=== PATIENT | male | born 1965 | race Caucasian/White ===

== ENCOUNTER → 2019-05-09 09:59 | Outpatient (BNVA) | payer MEDICARE, SELFPAY | PROVIDERS: Family Provider Family Medicine; PCP Internal Medicine Cardiovascular Disease; Visit Provider Anesthesiology | DX: M54.5 Low back pain (principal); M79.651 Pain in right thigh; M79.652 Pain in left thigh; M25.512 Pain in left shoulder; M25.571 Pain in right ankle and joints of right foot; F17.210 Nicotine dependence, cigarettes, uncomplicated; Z79.891 Long term (current) use of opiate analgesic; Z71.6 Tobacco abuse counseling | CPT/HCPCS: 99214 ==

== ENCOUNTER → 2019-08-15 09:37 | Outpatient (BNVA) | payer MEDICARE, SELFPAY | PROVIDERS: Family Provider Family Medicine; PCP Internal Medicine Cardiovascular Disease; Visit Provider Anesthesiology | DX: M54.9 Dorsalgia, unspecified (principal); F17.210 Nicotine dependence, cigarettes, uncomplicated; Z79.891 Long term (current) use of opiate analgesic | CPT/HCPCS: 99213; 99214 ==

== ENCOUNTER → 2019-10-17 08:53 | Outpatient (BNVA) | payer MEDICARE, SELFPAY | PROVIDERS: Family Provider Family Medicine; PCP Internal Medicine Cardiovascular Disease; Visit Provider Anesthesiology | DX: M54.41 Lumbago with sciatica, right side (principal); M54.9 Dorsalgia, unspecified; F17.210 Nicotine dependence, cigarettes, uncomplicated; Z79.891 Long term (current) use of opiate analgesic | CPT/HCPCS: 99213; 99214 ==

== ENCOUNTER → 2019-12-15 08:41 | Outpatient (BNVA) | payer MEDICARE, SELFPAY | PROVIDERS: Family Provider Family Medicine; PCP Internal Medicine Cardiovascular Disease; Visit Provider Anesthesiology | DX: M54.41 Lumbago with sciatica, right side (principal); M54.9 Dorsalgia, unspecified; F17.210 Nicotine dependence, cigarettes, uncomplicated; Z79.891 Long term (current) use of opiate analgesic | CPT/HCPCS: 99213; 99214 ==

== ENCOUNTER → 2020-02-02 09:06 | Outpatient (BNVA) | payer MEDICARE, SELFPAY | PROVIDERS: Family Provider Family Medicine; PCP Internal Medicine Cardiovascular Disease; Visit Provider Anesthesiology | DX: M54.41 Lumbago with sciatica, right side (principal); M54.9 Dorsalgia, unspecified; F17.210 Nicotine dependence, cigarettes, uncomplicated; Z79.891 Long term (current) use of opiate analgesic | CPT/HCPCS: 99213; 99214 ==

== ENCOUNTER → 2020-04-09 09:21 | Outpatient (BNVA) | payer MEDICARE, SELFPAY | PROVIDERS: Family Provider Family Medicine; PCP Internal Medicine Cardiovascular Disease; Visit Provider Anesthesiology | DX: G89.29 Other chronic pain (principal); M54.41 Lumbago with sciatica, right side; M54.9 Dorsalgia, unspecified; M79.604 Pain in right leg; F17.210 Nicotine dependence, cigarettes, uncomplicated; Z79.891 Long term (current) use of opiate analgesic | CPT/HCPCS: 99214 ==

== ENCOUNTER → 2020-06-13 09:01 | Outpatient (BNVA) | payer MEDICARE, SELFPAY | PROVIDERS: Family Provider Family Medicine; PCP Family Medicine; Visit Provider Anesthesiology | DX: G89.29 Other chronic pain (principal); M54.9 Dorsalgia, unspecified; M54.41 Lumbago with sciatica, right side; F17.210 Nicotine dependence, cigarettes, uncomplicated; Z79.891 Long term (current) use of opiate analgesic | CPT/HCPCS: 99213 ==

== ENCOUNTER → 2020-08-13 08:44 | Outpatient (BNVA) | payer MEDICARE, SELFPAY | PROVIDERS: Family Provider Family Medicine; PCP Family Medicine; Visit Provider Anesthesiology | DX: G89.29 Other chronic pain (principal); M54.41 Lumbago with sciatica, right side; M54.9 Dorsalgia, unspecified; F17.210 Nicotine dependence, cigarettes, uncomplicated; Z79.891 Long term (current) use of opiate analgesic | CPT/HCPCS: 99213 ==

== ENCOUNTER → 2020-10-09 09:36 | Outpatient (BNVA) | payer MEDICARE, SELFPAY | PROVIDERS: Family Provider Family Medicine; PCP Family Medicine; Visit Provider Anesthesiology | DX: G89.29 Other chronic pain (principal); M54.41 Lumbago with sciatica, right side; F17.210 Nicotine dependence, cigarettes, uncomplicated; Z79.891 Long term (current) use of opiate analgesic | CPT/HCPCS: 99213 ==

== ENCOUNTER → 2020-12-06 09:02 | Outpatient (BNVA) | payer MEDICARE, SELFPAY | PROVIDERS: Family Provider Family Medicine; PCP Family Medicine; Visit Provider Anesthesiology | DX: G89.29 Other chronic pain (principal); M54.41 Lumbago with sciatica, right side; F17.210 Nicotine dependence, cigarettes, uncomplicated; Z79.891 Long term (current) use of opiate analgesic | CPT/HCPCS: 99213 ==

== ENCOUNTER → 2021-02-04 09:12 | Outpatient (BNVA) | payer MEDICARE, SELFPAY | PROVIDERS: Family Provider Family Medicine; PCP Family Medicine; Visit Provider Anesthesiology | DX: G89.29 Other chronic pain (principal); M54.50 Low back pain, unspecified; F17.200 Nicotine dependence, unspecified, uncomplicated; Z79.891 Long term (current) use of opiate analgesic; Z71.6 Tobacco abuse counseling | CPT/HCPCS: 99214 ==

== ENCOUNTER → 2021-04-10 08:37 | Outpatient (BNVA) | payer MEDICARE, SELFPAY | PROVIDERS: Family Provider Family Medicine; PCP Family Medicine; Visit Provider Anesthesiology | DX: G89.29 Other chronic pain (principal); M54.50 Low back pain, unspecified; F17.210 Nicotine dependence, cigarettes, uncomplicated; Z79.891 Long term (current) use of opiate analgesic | CPT/HCPCS: 99213 ==

== ENCOUNTER 2021-09-19 15:52 | Emergency (ER) | payer MEDICARE, SELFPAY ==
--- NOTE | 2021-09-19 16:18 | XRR_ITS ---
PROCEDURE INFORMATION: Exam: XR Left Foot Exam date and time: 09/19/2021 5:09 PM Age: 56 years old Clinical indication: Pain; Foot; Left; Additional info: Foot pain TECHNIQUE: Imaging protocol: Radiologic exam of the Left foot. Views: 3 or more views. COMPARISON: No relevant prior studies available. FINDINGS: Bones/joints: No acute fracture. No dislocation. Normal bone mineralization. No joint effusion. Joint spaces are maintained. Accessory ossicle adjacent to the cuboid bone. Soft tissues: No soft tissue swelling. No radiopaque foreign body. XR/XR foot LT min 3V* [id number] IMPRESSION: 1. No acute fracture of the left foot. Followup imaging recommended in 7-14 days if clinical concern for fracture persists. 2. Incidental/nonacute findings are listed in the report.
[2021-09-19 16:33] VITALS: BP 167/83; PULSE 99; RESP 16; TEMP 37.1; O2SAT 96; BMI 33.1
--- NOTE | 2021-09-19 16:57 | W.ED.EXTPRO ---
HPI - Extremity Problem General: Chief complaint: Extremity Injury, Lower Stated complaint: left foot injury Time Seen by Provider: 09/19/21 16:50 Source: patient Mode of arrival: ambulatory Limitations: no limitations History of Present Illness: Patient is a 56-year-old male who presents to ED today with a complaint of left foot pain beginning a few days ago. He states pain is atraumatic as he cannot think of anything he would have done to injure the foot. 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 He states he normally wears supportive shoes while at work. He has not noticed any redness, swelling, temperature or color changes to the extremity. He has not had any bites or new skin lesions. Patient is a diabetic but states he does not feel his pain is secondary to any form of neuropathy. Pain seems to be worse with walking/weightbearing. He has tried topical treatments such as Biofreeze and Aspercreme without much relief. He has tried to wrap an RODRIGO wrap around the foot but states this made it worse. MD Complaint: extremity pain Onset (ago): day(s) Pain Consistency: constant Location: left and lower extremity Radiation: none Relieving factors: nothing Exacerbating factors: weight bearing and walking Associated symptoms: Reports no associated symptoms; Deny chest pain, fever(s) or rash Review of Systems Const: Denies: fever(s), chills, body aches, fatigue or malaise Card: Denies: chest pain Resp: Denies: dyspnea Musc: Reports: extremity pain (L foot); Denies: neck pain, back pain, joint pain, joint swelling, joint redness, joint warmth or joint stiffness Skin/Breast: Denies: rash, erythema, new lesions or changes in skin color Neuro: Denies: numbness in extremities, weakness in extremities or sensory changes PFSH ED PFSH: Medical History Abdominal hernia Acute bilateral low back pain Acute pain of left shoulder Acute right ankle pain Back pain with history of spinal surgery Chronic low back pain Cigarette smoker motivated to quit Encounter for long-term opiate analgesic use Lumbar back pain Opioid contract exists Shoulder impingement Smoker Surgical History H/O sinus surgery History of ankle surgery History of carpal tunnel surgery History of lumbar surgery Hx of abdominal surgery Hx of oral surgery Hx of shoulder surgery Family History Other Aneurysm Cancer Social History Smoking and tobacco status: current every day smoker cigarettes Packs smoked per day: 1 Alcohol intake: current Alcohol intake frequency: few times a month History of recent travel: No Physical Exam Const: COMMON NORMALS: no acute distress, patient oriented x3, no limitations and alert GENERAL APPEARANCE: cooperative NUTRITIONAL APPEARANCE: overweight ORIENTATION/CONSCIOUSNESS: Yes awake, Yes oriented to person, Yes oriented to place and Yes oriented to time Resp: COMMON NORMALS: normal respiratory effort and clear to auscultation bilaterally AUSCULTATION: clear to auscultation bilaterally Cardio: COMMON NORMALS: regular rate and regular rhythm RATE: regular rate RHYTHM: regular rhythm Extremity: COMMON NORMALS: normal to inspection, full ROM, capillary refill normal, no joint enlargement and no calf tenderness GENERAL: Yes normal exam except as noted LEFT LOWER EXTREMITY: Yes foot & digits OTHER: pt has pain at the plantar base of his first MTP with palpation but states this isn't the source of his pain; he states when he ambulates most of the pain is located to the dorsal lateral aspect of his foot and he does have discomfort here with palpation; no tenderness to Achilles tendon or plantar fascia; I don't appreciate any swelling/redness present Neuro: COMMON NORMALS: patient oriented x3, moves all extremities, no focal motor deficits and no sensory deficits noted SENSORIUM/ORIENTATION: Yes alert, Yes oriented to person, Yes oriented to place and Yes oriented to time Skin: COMMON NORMALS: no rashes or lesions noted GENERAL SKIN EXAM: no rashes or lesions noted TRAUMA: no lacerations or abrasions Course Vital Signs: Vital signs: Vital Signs Temperature 98.8 F 09/19/21 16:33 Pulse Rate 99 09/19/21 16:33 Respiratory Rate 16 09/19/21 16:33 Blood Pressure 167/83 09/19/21 16:33 Pulse Oximetry 96 09/19/21 16:33 MDM - Extremity (Nontraumatic) Medical Decision Making XR read as negative. He does have incidental/ findings such as a tripartite medial sesamoid, bone spur off his medial cuneiform, and an accessory ossicle near his cuboid however I don't feel these are relevant to the etiology of his discomfort. At this time I recommend patient see Dr. Magaña for an evaluation as patient states his discomfort is fairly significant and interfering with his work. He is requesting to be placed on something for inflammation . I think this is a reasonable request/treatment plan at this time. Lab Data Radiology Impressions Foot X-Ray 09/19/21 16:18 IMPRESSION: 1. No acute fracture of the left foot. Followup imaging recommended in 7-14 days if clinical concern for fracture persists. 2. Incidental/nonacute findings are listed in the report. Discharge Plan Discharge Patient Disposition: Home Clinical Impression: Acute pain of left foot Condition: Stable Prescriptions: New diclofenac sodium 50 mg tablet,delayed release (DR/EC) 50 mg PO Q12H PRN (Reason: pain) Qty: 14 0RF No Action hydrochlorothiazide 12.5 mg tablet 12.5 mg PO .1 day 0RF ascorbate calcium (vitamin C) 500 mg tablet 500 mg PO DAILY 0RF pantoprazole 20 mg tablet,delayed release (DR/EC) 20 mg PO DAILY 0RF gemfibrozil 600 mg tablet 600 mg PO BID 0RF icosapent ethyl [Vascepa] 1 gram capsule 2 g PO BID 0RF lisinopril 20 mg tablet 20 mg PO DAILY 0RF hydroxyzine HCl 25 mg tablet 25 mg PO TID PRN0RF metformin 1,000 mg tablet 500 mg PO DAILY 0RF clopidogrel [Plavix] 75 mg tablet 75 mg PO DAILY 0RF Zyrtec 10 mg capsule 10 mg PO DAILY 0RF sildenafil PO PRN0RF metoprolol tartrate 50 mg tablet 25 mg PO DAILY 0RF Victoza 2-Mike 0.6 mg/0.1 mL (18 mg/3 mL) pen injector 1.8 mg SUBCUT DAILY 0RF glimepiride 4 mg tablet 4 mg PO BID 0RF aspirin 81 mg tablet,delayed release (DR/EC) 81 mg PO DAILY 0RF Tresiba U-100 Insulin 100 unit/mL solution 15 unit SUBCUT DAILY 0RF hydrocodone-acetaminophen 5-325 mg tablet 1 tab PO .5 times a day PRN (Reason: pain) 30 Days Qty: 150 0RF Rx Instructions: fill on or after 04/12/21 hydrocodone-acetaminophen 5-325 mg tablet 1 tab PO .5times a day PRN (Reason: pain) 30 Days Qty: 150 0RF Rx Instructions: fill on or after 05/12/21 tramadol 50 mg tablet 50 mg PO TID PRN (Reason: pain) 30 Days Qty: 90 1RF Rx Instructions: fill on or after 04/12/21 and 05/12/21 Discharge Orders: Discharge ED (Routine); Ordered 09/19/21 Ordered By: Kristen Abraham Referrals: Gary Magaña DPM [Physician] - Martina Lopez MD [Primary Care Provider] - Stand Alone Forms: Work/School Release Coding Level of Care Code 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
--- NOTE | 2021-09-22 15:46 | DCPLANNER ---
Addendum entered by Kalpana Mejias 10/06/21 18:21: Patient had a follow up appointment at ortho - patient did attend appointment. Original Note: manager food beverage had message to schedule a followup appointment for patient with ortho. manager food beverage sent patients information to the front office staff at ortho. Patients information will be printed and reviewed. Clinic will call patient with appointment information.
== END 2021-09-19 17:47 | disposition home or self-care (01) ==
PROVIDERS: Emergency Provider Physician Assistant; PCP Family Medicine
DX: M79.672 Pain in left foot (principal)
CPT/HCPCS: 73630; 99283

== ENCOUNTER → 2021-09-30 11:13 | Outpatient (BNVA) | payer MEDICARE, SELFPAY | PROVIDERS: PCP Family Medicine; Visit Provider Podiatrist Foot & Ankle Surgery | DX: M25.572 Pain in left ankle and joints of left foot (principal); E11.42 Type 2 diabetes mellitus with diabetic polyneuropathy | CPT/HCPCS: 99204 ==

== ENCOUNTER → 2021-11-05 15:10 | Outpatient (BNVA) | payer MEDICARE, SELFPAY | PROVIDERS: PCP Family Medicine; Visit Provider Podiatrist Foot & Ankle Surgery | DX: E11.42 Type 2 diabetes mellitus with diabetic polyneuropathy (principal); Z79.84 Long term (current) use of oral hypoglycemic drugs | CPT/HCPCS: 20600; J1100; J3301; J3490 ==

== ENCOUNTER 2022-08-23 14:15 | Emergency (ER) | payer MEDICARE, MEDICAID, SELFPAY ==
[2022-08-23 14:21] VITALS: BP 151/98; PULSE 108; RESP 14; TEMP 36.7; O2SAT 96; BMI 33.8
--- NOTE | 2022-08-23 14:42 | XRR_ITS ---
PROCEDURE INFORMATION: Exam: XR Right Ankle Exam date and time: 08/23/2022 1:47 PM Age: 57 years old Clinical indication: Swelling, leg or foot; Additional info: Swelling and pain TECHNIQUE: Imaging protocol: Radiologic exam of the right ankle. Views: 3 or more views. COMPARISON: No relevant prior studies available. FINDINGS: Bones/joints: Osseous structures are intact. Negative for fracture. Joint spaces are preserved. Soft tissues: Soft tissue swelling around the ankle. XR/XR ankle RT min 3V* [id number] IMPRESSION: No acute findings.
--- NOTE | 2022-08-23 14:42 | ED_ITS ---
HPI - Extremity Problem General: Chief complaint: Extremity Injury, Lower Stated complaint: Right ankle pain Time Seen by Provider: 08/23/22 14:34 Source: patient and family Mode of arrival: ambulatory Limitations: no limitations History of Present Illness: Patient makes his way to the emergency department today after 1 week history of right ankle swelling and discomfort. He is unaware of any acute injury. He states the pain began last Wednesday it was predominantly in the side of his ankle and his right foot. He states that there was some redness around that area and it was tender to touch. He noted that if you wore flip-flops it was less painful than if he wore his regular shoes which put pressure on the outside of his ankle. He had a prior history of ligamentous repair of the lateral lig aments x2. No history of any other bony injuries to that ankle. He is on his feet quite a bit in his occupation but again denies any injury and he is always on his feet and has been for many years. He denies any shortness of breath systemic fevers, other joint swelling or redness etc. Location: right Associated symptoms: Reports no associated symptoms; Deny chest pain or fever(s) Review of Systems Const: Denies: fever(s) or chills Card: Denies: chest pain, irregular heart rhythm or edema Resp: Denies: dyspnea, productive cough or non-productive cough GI: Denies: nausea, vomiting or diarrhea : Denies: difficulty urinating, dysuria or urinary frequency Musc: Reports: joint pain Skin/Breast: Reports: erythema Neuro: Denies: headache(s), numbness in extremities or weakness in extremities Ad/Lymph: Denies: easy bruising or easy bleeding PFSH ED PFSH: Medical History Abdominal hernia Acute bilateral low back pain Acute pain of left shoulder Acute right ankle pain Back pain with history of spinal surgery Chronic low back pain Cigarette smoker motivated to quit Encounter for long-term opiate analgesic use Lumbar back pain Opioid contract exists Shoulder impingement Smoker Surgical History H/O sinus surgery History of ankle surgery History of carpal tunnel surgery History of lumbar surgery Hx of abdominal surgery Hx of oral surgery Hx of shoulder surgery Family History Other Aneurysm Cancer Social History (Reviewed 08/23/22 @ 14:45 by RAMON Lozano Smoking and tobacco status: current every day smoker cigarettes Packs smoked per day: 1 Alcohol intake: current Alcohol intake frequency: few times a month Substance/Drug Use: unknown Physical Exam Narrative: EXAM NARRATIVE: He appears to be in no acute distress. He answers questions appropriately in a goal-directed fashion. Next good eye contact. Const: COMMON NORMALS: no acute distress and patient oriented x3 GENERAL APPEARANCE: cooperative and comfortable NUTRITIONAL APPEARANCE: overweight HENMT: COMMON NORMALS: normocephalic, Normal nasal mucous membranes and turbinates present and moist oral mucous membranes HEAD & SCALP: normocephalic NOSE: Normal nasal mucous membranes and turbinates present Eye: COMMON NORMALS: Equal, round and reactive pupils present, EOMs intact bilaterally and conjunctivae normal CONJUNCTIVA: Yes conjunctivae normal PUPIL: Yes Equal, round and reactive pupils present Neck/C-Spine: COMMON NORMALS: full ROM and no lymphadenopathy Resp: COMMON NORMALS: normal respiratory effort and No use of accessory muscles EFFORT & INSPECTION: Yes able to speak in complete sentences Cardio: COMMON NORMALS: regular rate and Peripheral pulses 2+ throughout RATE: regular rate PERIPHERAL PULSES: Peripheral pulses 2+ throughout Back/Pelvis: COMMON NORMALS: thoracic and lumbar spine normal to inspection, no thoracic nor lumbar tenderness and thoraco-lumbar ROM normal Extremity: OTHER: Examination with attention to his right lower extremity reveals swelling soft tissues over the right lateral malleolus. There is some faint erythema to the skin demarcates around the ankle joint laterally. There is no proximal lymphangitis or lymphadenopathy. He has intact capillary refill. There is no abrasions or lesions noted to the skin of the foot or ankle. There is no forefoot tenderness. There is no laxity of that ankle joint. There is no Achilles tendon dysfunction or tenderness. Neuro: COMMON NORMALS: patient oriented x3, moves all extremities, no focal motor deficits and no sensory deficits noted Psych: COMMON NORMALS: mental status grossly normal Skin: COMMON NORMALS: no wounds and turgor normal GENERAL SKIN EXAM: turgor normal Course Reevaluation(s): Reevaluation #1: Patient remains clinically stable. No abnormal vital signs noted. No change in his clinical examination. Discussed findings there implications and limitations with both patient and family. Stable for outpatient management. Time: 16:08 Vital Signs: Vital signs: Vital Signs Temperature 98.0 F 08/23/22 14:21 Pulse Rate 107 H 08/23/22 15:43 Respiratory Rate 18 08/23/22 15:43 Blood Pressure 114/81 08/23/22 15:43 Pulse Oximetry 94 08/23/22 15:43 Oxygen Delivery Me thod Room Air 08/23/22 15:43 MDM - Extremity (Nontraumatic) Medical Decision Making Patient presents to the emerged part with a history of redness over the lateral portion of his right ankle with local tenderness and soreness and tenderness to touch. No systemic symptoms of fever body aches chills etc. No injury. Further delving into his history reveals that he may have had similar episodes in the past but has never been told he had gouty arthritis etc. He had a prior reconstruction of ligaments but no bony reconstruction and no hardware. Examination revealed a faint erythema to the skin of his right lateral malleolus with localized skin tenderness. No proximal lymphangitis or adenopathy or other concerns that would suggest either septic joint and or cellulitis etc. Laboratories were obtained and showed a high normal uric acid with intact renal function. Had a slightly elevated CRP but a normal sed rate. Radiographs were reassuring. Current presentation and history strongly suggest gouty arthritis as likely etiology of his current presentation. I discussed likelihood although not at 100% confirmatory at this point. Not having a fusion that I would attempt to aspirate at this time. We will go and empirically give him 5-day course of prednisone. We also talked about linn course and also reasons to return to this or the nearest emergency department should he have increasing redness, fevers or other concerns about another disease progression such as cellulitis etc. Also discussed the effect of steroids on his blood sugars in a temporary fashion. Both he and his family voiced understanding and were appreciative of care. Lab Data I reviewed the patient's lab results. 08/23/22 14:51 Radiology Impressions Ankle X-Ray 08/23/22 14:42 IMPRESSION: No acute findings. Laboratory Results ESR 10 mm/hr (0-10) 08/23/22 14:51 Sodium 141 mmol/L (136-145) 08/23/22 14:51 Potassium 4.4 mmol/L (3.5-5.1) 08/23/22 14:51 Chloride 106 mmol/L (98-107) 08/23/22 14:51 Carbon Dioxide 23 mmol/L (22-29) 08/23/22 14:51 Anion Gap 16.4 (5-19) 08/23/22 14:51 BUN 16 mg/dL (6-20) 08/23/22 14:51 Creatinine 0.9 mg/dL (0.7-1.2) 08/23/22 14:51 GFR Calculation 86.4 mL/min (90-130) L 08/23/22 14:51 Glucose 231 mg/dL (65-115) H 08/23/22 14:51 Calculated Osmolality 301 mOsm/kg (285-295) H 08/23/22 14:51 Uric Acid 6.7 mg/dL (3.4-7.0) 08/23/22 14:51 Calcium 9.2 mg/dL (8.5-10.5) 08/23/22 14:51 C-Reactive Protein 9.7 mg/L (0.0-4.9) H 08/23/22 14:51 Discharge Plan Discharge Patient Disposition: Home Clinical Impression: Gouty arthritis of right ankle Condition: Stable Prescriptions: New prednisone 20 mg tablet 20 mg PO BID 5 Days Qty: 10 0RF No Action hydrochlorothiazide 12.5 mg tablet 12.5 mg PO .1 day ascorbate calcium (vitamin C) 500 mg tablet 500 mg PO DAILY pantoprazole 20 mg tablet,delayed release (DR/EC) 20 mg PO DAILY gemfibrozil 600 mg tablet 600 mg PO BID icosapent ethyl [Vascepa] 1 gram capsule 2 g PO BID lisinopril 20 mg tablet 20 mg PO DAILY hydroxyzine HCl 25 mg tablet 25 mg PO TID PRN metformin 1,000 mg tablet 500 mg PO DAILY clopidogrel [Plavix] 75 mg tablet 75 mg PO DAILY Zyrtec 10 mg capsule 10 mg PO DAILY sildenafil PO PRN metoprolol tartrate 50 mg tablet 25 mg PO DAILY Victoza 2-Mike 0.6 mg/0.1 mL (18 mg/3 mL) pen injector 1.8 mg SUBCUT DAILY glimepiride 4 mg tablet 4 mg PO BID aspirin 81 mg tablet,delayed release (DR/EC) 81 mg PO DAILY Tresiba U-100 Insulin 100 unit/mL solution 15 unit SUBCUT DAILY hydrocodone-acetaminophen 5-325 mg tablet 1 tab PO .5 times a day PRN (Reason: pain) 30 Days Qty: 150 0RF Rx Instructions: fill on or after 04/12/21 hydrocodone-acetaminophen 5-325 mg tablet 1 tab PO .5times a day PRN (Reason: pain) 30 Days Qty: 150 0RF Rx Instructions: fill on or after 05/12/21 (DME) Diabetic Shoes with 3 sets of insoles See Rx Instructions .Route .MEDSUPPLY Qty: 1 0RF Rx Instructions: As directed by [facility] amoxicillin-pot clavulanate 875-125 mg tablet 1 tab PO BID 7 Days Qty: 14 0RF ciprofloxacin-dexamethasone [Ciprodex] 0.3-0.1 % drops,suspension 4 drp otic (ear) BID 7 Days Qty: 7.5 0RF (DME) Diabetic Shoes with 3 sets of insoles See Rx Instructions .Route .MEDSUPPLY Qty: 1 0RF Rx Instructions: As directed by HOME Discharge Orders: Discharge ED (Routine); Ordered 08/23/22 Ordered By: Yuri Coto Referrals: Martina Lopez MD [Primary Care Provider] - Discharge Diet: Usual diet Discharge Activity: Increase activity as tolerated Patient Instructions: Opioid Safety, Pain Management Activity Restrictions/Additional Instructions: As we discussed your condition strongly suggest gouty arthritis as its cause. We have recommended a 5-day course of prednisone to help with the inflammation from your arthritis. As we discussed your sugars will be temporarily affected by the prednisone and may elevate higher than normal. We also recommend following up with your doctor in the next 2 weeks as scheduled to discuss any long-term control of potential gouty arthritis. Advise no red wine reducing red meat consumption etc. Should you develop progressive or worsening symptoms to i nclude fever, redness progressing further up your leg chills etc. return to this or the nearest emergency department for reevaluation. 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
[2022-08-23 15:11] LABS: Erythrocyte Sedimentation Rate 10 mm/hr (0-10)
[2022-08-23 15:24] LABS: Anion Gap 16.4 (5-19); Blood Urea Nitrogen 16 mg/dL (6-20); C Reactive Protein 9.7 mg/L (0.0-4.9); Calcium 9.2 mg/dL (8.5-10.5); Carbon Dioxide 23 mmol/L (22-29); Chloride 106 mmol/L (98-107); Glomerular Filtration Rate 86.4 mL/min (90-130); Glucose 231 mg/dL (65-115); Osmolality Calculated 301 mOsm/kg (285-295); Potassium 4.4 mmol/L (3.5-5.1); Sodium 141 mmol/L (136-145); Uric Acid 6.7 mg/dL (3.4-7.0)
[2022-08-23 15:43] VITALS: BP 114/81; PULSE 107; RESP 18; O2SAT 94
[2022-08-23] MEDS: predniSONE 20 mg Tablet 40 MG PO (16:12)
[2022-08-23 16:15] VITALS: BP 115/80; PULSE 105; O2SAT 95
== END 2022-08-23 16:16 | disposition home or self-care (01) ==
PROVIDERS: Emergency Provider Emergency Medicine; PCP Family Medicine
DX: M25.571 Pain in right ankle and joints of right foot (principal); M10.071 Idiopathic gout, right ankle and foot
CPT/HCPCS: 36415; 73610; 80048; 84550; 85651; 86140; 99283; J7512

== ENCOUNTER → 2022-12-08 10:52 | Outpatient (BNVA) | payer MEDICARE, MEDICAID, SELFPAY | PROVIDERS: PCP Family Medicine; Visit Provider Podiatrist Foot & Ankle Surgery | DX: M76.71 Peroneal tendinitis, right leg | CPT/HCPCS: 20550; 73610; J1100; J3301; J3490 ==

== ENCOUNTER 2023-04-22 11:38 | Emergency (ER) | payer MEDICARE, SELFPAY ==
--- NOTE | 2023-04-22 11:41 | XR_ITS ---
WS: [id number] XR knee LT 3V* [id number] REASON FOR EXAM: injury FINDINGS: No fracture or focal bone lesion. Minimal narrowing of the medial knee joint space with minimal subchondral sclerosis. The lateral and patellofemoral joint spaces are intact and well preserved. Mild subchondral sclerosis and osteophytosis of the patella. No soft tissue abnormality. IMPRESSION: No acute bone or joint abnormality. 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
[2023-04-22 11:57] VITALS: BP 154/94; PULSE 115; RESP 16; TEMP 37.3; O2SAT 96; BMI 33.6
--- NOTE | 2023-04-22 13:23 | ED_ITS ---
HPI - Extremity Problem 2 General: Chief complaint: Extremity Problem,Nontraumatic Stated complaint: left knee pain Time Seen by Provider: 04/22/23 13:12 History of Present Illness: 58-year-old male patient comes in today for complaints of left knee pain. Patient has swelling to the anterior knee without any redness or induration. Patient denies any new injury. Patient has had to have fluid drawn off his knee before. Patient appears nontoxic. Patient does have a history of diabetes, chronic pain and high blood pressure. Review of Systems 2 General: Reports: 10 or more systems reviewed and unremarkable except in HPI and below PFSH ED 2 PFSH: Medical History Abdominal hernia Acute bilateral low back pain Acute pain of left shoulder Acute right ankle pain Back pain with history of spinal surgery Chronic low back pain Cigarette smoker motivated to quit Encounter for long-term opiate analgesic use Lumbar back pain Opioid contract exists Shoulder impingement Smoker Surgical History H/O sinus surgery History of ankle surgery History of carpal tunnel surgery History of lumbar surgery Hx of abdominal surgery Hx of oral surgery Hx of shoulder surgery Family History Other Aneurysm Cancer Social History Smoking and tobacco/nicotine status: current every day tobacco/nicotine user cigarettes Packs smoked per day: 1 Alcohol intake: current Alcohol intake frequency: few times a month Substance/Drug Use: unknown Physical Exam 2 Const: COMMON NORMALS: alert HENMT: COMMON NORMALS: normocephalic HEAD & SCALP: normocephalic Neck/C-Spine: COMMON NORMALS: full ROM Resp: COMMON NORMALS: normal respiratory effort and clear to auscultation bilaterally AUSCULTATION: clear to auscultation bilaterally Cardio: COMMON NORMALS: regular rate and regular rhythm RATE: regular rate RHYTHM: regular rhythm GI: COMMON NORMALS: Soft to palpation and non-tender PALPATION: Yes Soft to palpation Back/Pelvis: COMMON NORMALS: thoracic and lumbar spine normal to inspection Extremity: LEFT LOWER EXTREMITY: Yes knee joint (Mild swelling no redness) Neuro: SENSORIUM/ORIENTATION: Yes alert Skin: COMMON NORMALS: turgor normal GENERAL SKIN EXAM: turgor normal Course 2 Vital Signs: Vital signs: Vital Signs Temperature 99.1 F 04/22/23 11:57 Pulse Rate 115 H 04/22/23 11:57 Respiratory Rate 16 04/22/23 11:57 Blood Pressure 154/94 04/22/23 11:57 Pulse Oximetry 96 04/22/23 11:57 MDM - Extremity (Nontraumatic) Medical Decision Making 58-year-old male patient comes in today with swelling and tenderness to the left knee. On exam there is minimal swelling with no redness. Distal pulses and sensation are intact. Differential diagnosis includes not limited to joint effusion, osteoarthritis, meniscal injury, septic joint. No signs of severe illness is noted. Knee joint was aspirated and cloudy synovial fluid was noted. Synovial fluid noted white blood cell count in the 20,000 range. I reviewed this with Dr. Zuñiga who recommended CBC along with sed rate and CRP for further evaluation. CBC was normal. Sed rate was normal. CRP was 39. I will go ahead and cover for secondary infection due to the introduction of the needle to the joint. Patient was given a gram Rocephin and a Bactrim tablet. Patient was continued on Bactrim and Augmentin for next 7 days. Patient was recommended to monitor site for increasing redness or swelling and return to the ER for the symptoms. Patient reported understanding agreed to plan. Lab Data 04/22/23 15:34 Laboratory Results WBC 8.67 10^3/uL (3.29-11.43) 04/22/23 15:34 RBC 5.14 10^6/uL (3.85-5.65) 04/22/23 15:34 Hgb 13.80 g/dL (11.27-16.99) 04/22/23 15:34 Hct 41.3 % (37-53) 04/22/23 15:34 MCV 80.4 fl (82-101) L 04/22/23 15:34 MCH 26.8 pg (27-33) L 04/22/23 15:34 MCHC 33.4 g/dL (30-55) 04/22/23 15:34 RDW 13.7 % (12.1-15.1) 04/22/23 15:34 Plt Count 221 10^3/cmm (157-399) 04/22/23 15:34 MPV 10.3 fL (7.4-10.4) 04/22/23 15:34 Neut % (Auto) 64.3 % 04/22/23 15:34 Lymph % (Auto) 19.3 % 04/22/23 15:34 [place] % (Auto) 14.2 % 04/22/23 15:34 Eos % (Auto) 1.3 % 04/22/23 15:34 Baso % (Auto) 0.6 % 04/22/23 15:34 Neut # (Auto) 5.58 10^3/uL (1.8-7.7) 04/22/23 15:34 Lymph # (Auto) 1.7 10^3/uL (0.8-4.8) 04/22/23 15:34 [place] # (Auto) 1.2 10^3/uL (0.2-0.9) H 04/22/23 15:34 Eos # (Auto) 0.1 10^3/uL (0.0-0.8) 04/22/23 15:34 Baso # (Auto) 0.1 10^3/uL (0.0-0.1) 04/22/23 15:34 Nucleated RBC % (auto) 0 % 04/22/23 15:34 Nucleated RBCs # 0.0 /100WBC 04/22/23 15:34 ESR 8 mm/hr (0-10) 04/22/23 15:34 C-Reactive Protein 39.9 mg/L (0.0-4.9) H 04/22/23 15:34 Synovial Color Pale yellow (PALE YELLOW) 04/22/23 14:15 Synovial Appearance Cloudy (CLEAR) 04/22/23 14:15 Synovial WBC 62505 /uL (0-150) H 04/22/23 14:15 Synovial RBC 2 10^3/uL (0-0) H 04/22/23 14:15 Synovial Mononuclear 4.207 10^3/uL 04/22/23 14:15 Synov Polynuclear WBCs 17.661 10^3/uL 04/22/23 14:15 Synovial Other Cells Not Reportable 04/22/23 14:15 Synovial Polynuclear % 80.800 % 04/22/23 14:15 Synovial Mononuclear % 19.200 % 04/22/23 14:15 Path Cons w/Slide Yes 04/22/23 14:15 All radiology interpretation(s) finalized by discharge Discharge Plan Discharge Patient Disposition: Home Clinical Impression: Effusion of knee joint, left Condition: Stable Prescriptions: New Bactrim DS 800-160 mg tablet 1 tab PO DAILY 7 Days Qty: 14 0RF amoxicillin-pot clavulanate 875-125 mg tablet 1 tab PO BID Qty: 14 0RF No Action hydrochlorothiazide 12.5 mg tablet 12.5 mg PO .1 day ascorbate calcium (vitamin C) 500 mg tablet 500 mg PO DAILY pantoprazole 20 mg tablet,delayed release (DR/EC) 20 mg PO DAILY gemfibrozil 600 mg tablet 600 mg PO BID icosapent ethyl [Vascepa] 1 gram capsule 2 g PO BID lisinopril 20 mg tablet 20 mg PO DAILY hydroxyzine HCl 25 mg tablet 25 mg PO TID PRN metformin 1,000 mg tablet 500 mg PO DAILY clopidogrel [Plavix] 75 mg tablet 75 mg PO DAILY Zyrtec 10 mg capsule 10 mg PO DAILY sildenafil PO PRN metoprolol tartrate 50 mg tablet 25 mg PO DAILY Victoza 2-Mike 0.6 mg/0.1 mL (18 mg/3 mL) pen injector 1.8 mg SUBCUT DAILY glimepiride 4 mg tablet 4 mg PO BID aspirin 81 mg tablet,delayed release (DR/EC) 81 mg PO DAILY Tresiba U-100 Insulin 100 unit/mL solution 15 unit SUBCUT DAILY hydrocodone-acetaminophen 5-325 mg tablet 1 tab PO .5 times a day PRN (Reason: pain) 30 Days Qty: 150 0RF Rx Instructions: fill on or after 04/12/21 hydrocodone-acetaminophen 5-325 mg tablet 1 tab PO .5times a day PRN (Reason: pain) 30 Days Qty: 150 0RF Rx Instructions: fill on or after 05/12/21 (DME) Diabetic Shoes with 3 sets of insoles See Rx Instructions .Route .MEDSUPPLY Qty: 1 0RF Rx Instructions: As directed by [facility] amoxicillin-pot clavulanate 875-125 mg tablet 1 tab PO BID 7 Days Qty: 14 0RF ciprofloxacin-dexamethasone [Ciprodex] 0.3-0.1 % drops,suspension 4 drp otic (ear) BID 7 Days Qty: 7.5 0RF (DME) Diabetic Shoes with 3 sets of insoles See Rx Instructions .Route .MEDSUPPLY Qty: 1 0RF Rx Instructions: As directed by HOME (DME) AFO to right See Rx Instructions .Route .MEDSUPPLY Qty: 1 0RF Rx Instructions: As directed by the brigid ruiz Discharge Orders: Discharge ED (Routine); Ordered 04/22/23 Ordered By: Shankar Prakash Other Ambulatory Orders: DME: Miscellaneous (Order) Location: None Selected Ordered By: Shankar Prakash Referrals: Martina Lopez MD [Primary Care Provider] - Discharge Diet: Usual diet Discharge Activity: Increase activity as tolerated Patient Instructions: Osteoarthritis (ED) Activity Restrictions/Additional Instructions: Continue with routine care. Drink plenty water and fluids. Follow-up with primary care as needed. Return to ED for high fever greater than 100.4, increasing redness and swelling to the knee, or new concerns. Case management will contact you regarding follow-up appointment with orthopedics. Coding Level of Care Code ED Tanning Wheel Filler for Oren Small
[2023-04-22] MEDS: triamcinolone 40 mg/mL SDV 10 MG INJECTION (14:00)
[2023-04-22] MEDS: HYDROcodone-acetaminophen 10-325 mg Tablet 1 TAB PO (14:27)
[2023-04-22 14:35] LABS: Appearance Synovial Fluid CLOUDY (CLEAR); Color Synovial Fluid PALE YELLOW (PALE YELLOW); Cyto Order Verification No Order; PATH Referal YES
[2023-04-22 14:42] LABS: RBC Synovial Fluid 2 10^3/uL (0-0); Synovial Fluid Mononuclear # 4.207 10^3/uL; Synovial Fluid Polynuclear # 17.661 10^3/uL
[2023-04-22 15:47] LABS: Basophils # 0.1 10^3/uL (0.0-0.1); Basophils % 0.6 %; Eosinophils # 0.1 10^3/uL (0.0-0.8); Eosinophils % 1.3 %; Hematocrit 41.3 % (37-53); Lymphocytes # 1.7 10^3/uL (0.8-4.8); Lymphocytes % 19.3 %; Mean Corpuscular HGB Conc 33.4 g/dL (30-55); Mean Corpuscular Hemoglobin 26.8 pg (27-33); Mean Corpuscular Volume 80.4 fl (82-101); Mean Platelet Volume 10.3 fL (7.4-10.4); Monocytes # 1.2 10^3/uL (0.2-0.9); Monocytes % 14.2 %; Neutrophils # 5.58 10^3/uL (1.8-7.7); Neutrophils % 64.3 %; Nucleated Red Blood Cells % 0 %; Platelet Count 221 10^3/cmm (157-399); Red Blood Count 5.14 10^6/uL (3.85-5.65); Red Cell Distribution Width 13.7 % (12.1-15.1); White Blood Count 8.67 10^3/uL (3.29-11.43)
[2023-04-22 15:49] LABS: Erythrocyte Sedimentation Rate 8 mm/hr (0-10)
[2023-04-22 16:02] LABS: C Reactive Protein 39.9 mg/L (0.0-4.9)
[2023-04-22] MEDS: sulfamethoxazole-trimeth DS 160-800 mg Tablet 1 TAB PO (16:31)
[2023-04-22] MEDS: cefTRIAXone 1,000 MG in water for injection-sterile 2.1 ML 2.1 MG IM (16:31)
--- NOTE | 2023-04-22 20:18 | DCPLANNER ---
Message sent to Ortho for referral - knee effusion
== END 2023-04-22 16:39 | disposition home or self-care (01) ==
PROVIDERS: Emergency Medicine; Emergency Provider Nurse Practitioner Family; PCP Family Medicine
DX: M25.462 Effusion, left knee (principal); Z79.02 Long term (current) use of antithrombotics/antiplatelets; Z79.84 Long term (current) use of oral hypoglycemic drugs; Z79.82 Long term (current) use of aspirin; Z79.4 Long term (current) use of insulin; F17.210 Nicotine dependence, cigarettes, uncomplicated
CPT/HCPCS: 36415; 73562; 80503; 85025; 85651; 86140; 87070; 87075; 87205; 89050; 96372; 99284; J0696; J3301

== ENCOUNTER → 2023-05-04 15:23 | Outpatient (BNVA) | payer MEDICARE, SELFPAY | PROVIDERS: PCP Family Medicine; Referring Provider Dermatology; Visit Provider Physician Assistant | DX: M25.512 Pain in left shoulder (principal); M75.42 Impingement syndrome of left shoulder | CPT/HCPCS: 20610; 73030; 99213; J3301 ==

== ENCOUNTER → 2023-07-13 14:38 | Outpatient (BNVA) | payer MEDICARE, SELFPAY | PROVIDERS: PCP Family Medicine; Visit Provider Student in an Organized Health Care Education/Training Program | DX: M75.42 Impingement syndrome of left shoulder (principal) | CPT/HCPCS: 99213 ==

== ENCOUNTER 2023-07-15 16:25 | Outpatient (CLI) | payer MEDICARE, SELFPAY ==
--- NOTE | 2023-07-15 16:45 | MR_ITS ---
WS: [id number] MRI LEFT SHOULDER NONCONTRAST TECHNIQUE: Sagittal T2, coronal T1, T2 and proton density imaging. Axial gradient PDE imaging. CLINICAL INFORMATION: pain COMPARISON: None. FINDINGS: Prior postoperative changes resection of the distal clavicle. Mild downsloping acromion. Subacromial space is preserved. Tendinopathy distal supraspinatus. Normal infraspinatus. Normal teres minor. Subs capularis is normal. Small biceps tendon within the bicipital groove. Intra-articular biceps tendon a ppears intact. Moderate degenerative narrowing glenohumeral articulation. Degenerative fraying of the glenoid labrum. Normal bone marrow signal in the humerus and glenoid. MR/MR shoulder LT wo con* [id number] IMPRESSION: 1. Prior resection of the distal clavicle. 2. Subacromial space is preserved. Rotator cuff is intact. 3. Tiny amount of tendinopathy in the distal supraspinatus at the insertion. 4. Small biceps tendon intact in the bicipital groove. 5. Moderate degenerative narrowing of the glenohumeral articulation.
== END 2023-07-15 16:26 | disposition home or self-care (01) ==
LOC: RAD 16:25
PROVIDERS: PCP Family Medicine; Visit Provider Student in an Organized Health Care Education/Training Program
DX: M75.42 Impingement syndrome of left shoulder (principal); M19.012 Primary osteoarthritis, left shoulder
CPT/HCPCS: 73221

== ENCOUNTER → 2023-08-13 08:39 | Outpatient (BNVA) | payer MEDICARE, SELFPAY | PROVIDERS: PCP Family Medicine; Visit Provider Student in an Organized Health Care Education/Training Program | DX: M75.42 Impingement syndrome of left shoulder (principal); M75.22 Bicipital tendinitis, left shoulder | CPT/HCPCS: 99214 ==

== ENCOUNTER 2023-09-23 06:45 | Day surgery (SDC) | payer MEDICARE, SELFPAY ==
[2023-09-23] VITALS (9 sets, daily range): BP systolic 119–178; BP diastolic 81–109; PULSE 79–94; RESP 17–18; TEMP 36.1–36.8; O2SAT 90–97; BMI 33.5
[2023-09-23] MEDS: scopolamine 1.5 Patch 1 PATCH TRANSDERMA (07:12)
[2023-09-23] MEDS: ketorolac 30 mg/mL INJ IVP (07:12)
[2023-09-23] MEDS: acetaminophen 1,000 MG/100 ML PIGGYBACK 400 MG IV (07:13)
[2023-09-23] MEDS: sodium chloride 0.9% 1,000 ML 30 ML IV (07:13)
[2023-09-23 07:15] LABS: Glucose Point of Care 158 mg/dL (70-110)
--- NOTE | 2023-09-23 07:58 | ANES.PREANE2 ---
Pre-Anesthetic Assessment Height/Weight: Height 1.78 m Weight 106.141 kg Temp Pulse Resp BP Pulse Ox O2 Del Method 97.3 F L 93 18 178/109 95 Room Air 09/23/23 07:02 09/23/23 07:02 09/23/23 07:02 09/23/23 07:02 09/23/23 07:02 09/23/23 07:04 Operation Date: 09/23/23 08:25 Proposed Procedures p Shoulder Arthroscopy, LEFT Shoulder Diagnostic & Surgical Arthroscopy(Left) - Álvaro Lori, DO s Subacromial Decompression(Left) - Álvaro Armstrong, DO s Bicep Tenotomy(Left) - Álvaro Lori, DO s Bicep Tenodesis(Left) - Álvaro Armstrong, DO Last intake: Intake Last Liquid Date 09/22/23 Last Liquid Time 23:30 Last Solid Date 09/22/23 Last Solid Time 19:30 Exam alert, oriented x 3, clear to auscultation bilaterally and regular rate & rhythm Airway Submandibular: within normal limits Cervical ROM: within normal limits Mallampati: Class I Dentition: partials CV/HEM Hypertension off plavix x 6 days None reported Hepatic None reported GI well controlled with no nighttime symptoms Metabolic Diabetes Mellitus Neuropsych Transient Ischemic Attack Anesthetic Plan ASA status: 3 Anesthesia: General and Regional (specify below) Other: interscalene block Medications/Allergies Home Medications Medication Instructions Recorded Confirmed Last Taken Type cetirizine 10 mg capsule (Zyrtec) 10 mg PO DAILY 05/08/19 09/22/23 09/22/23 History clopidogrel 75 mg tablet (Plavix) 75 mg PO DAILY 05/08/19 09/22/23 09/18/23 History glimepiride 4 mg tablet 4 mg PO BID 05/08/19 09/22/23 09/22/23 History hydroxyzine HCl 25 mg tablet 25 mg PO TID PRN Anxiety 05/08/19 09/23/23 09/23/23 04:00 History lisinopril 20 mg tablet 20 mg PO DAILY 05/08/19 09/22/23 09/22/23 History metformin 1,000 mg tablet 1,000 mg PO BID 05/08/19 09/22/23 09/22/23 History metoprolol tartrate 50 mg tablet 25 mg PO QPM 0209/22/23 09/21/23 History sildenafil PO PRN 05/08/19 09/06/23 Unknown History hydrochlorothiazide 12.5 mg tablet 12.5 mg PO DAILY 06/21/19 09/22/23 09/22/23 History pantoprazole 20 mg tablet,delayed 20 mg PO DAILY 10/17/19 09/22/23 09/22/23 History release gemfibrozil 600 mg tablet 600 mg PO BID 02/04/21 09/22/23 09/22/23 History icosapent ethyl 1 gram capsule 2 g PO BID 02/04/21 09/22/23 09/22/23 History (Vascepa) hydrocodone 5 mg-acetaminophen 325 1 tab PO .5times a day PRN pain 30 04/10/21 09/23/23 09/23/23 04:00 Rx mg tablet days #150 tabs insulin degludec 100 unit/mL 15 unit SUBCUT DAILY 04/10/21 09/22/23 Unknown History subcutaneous solution (Tresiba U-100 Insulin) Diabetic Shoes with 3 sets of #1 ea 09/30/21 09/06/23 Unknown Rx insoles Diabetic Shoes with 3 sets of #1 ea 11/05/21 09/06/23 Unknown Rx insoles AFO to right #1 ea 12/14/22 09/06/23 Unknown Rx Allergies Allergy/AdvReac Type Severity Reaction Status Date / Time codeine AdvReac Unknown ADR-Nausea Verified 09/22/23 12:59 morphine AdvReac Unknown ADR/ALGY-Fl Verified 09/22/23 12:59 ushing Current Medications Generic Name Dose Route Start Last Admin Trade Name Freq PRN Reason Stop Dose Admin Sodium Chloride 1,000 mls @ 30 mls/hr 09/23/23 07:00 09/23/23 07:13 Sodium Chloride 0.9% IV 09/24/23 06:59 30 mls/hr .Q24H ALVARO Administration PFSH Anesthesia Medical History Cigarette smoker motivated to quit Chronic low back pain Shoulder impingement Abdominal hernia Acute right ankle pain Acute bilateral low back pain Acute pain of left shoulder Encounter for long-term opiate analgesic use Back pain with history of spinal surgery Opioid contract exists Lumbar back pain Smoker Surgical History Hx of shoulder surgery History of carpal tunnel surgery Hx of abdominal surgery Hx of oral surgery H/O sinus surgery History of lumbar surgery History of ankle surgery Family History Other Aneurysm Cancer Social History Smoking and tobacco/nicotine status: current every day tobacco/nicotine user cigarettes Packs smoked per day: 1 Alcohol intake: current Alcohol intake frequency: few times a month Substance/Drug Use: unknown Data Anesthesia Cardiac Studies: No Data to Display
--- NOTE | 2023-09-23 08:00 | ANES.PROC ---
Anesthesia Procedures Procedure/Date: 09/23/23 Nerve Block ^: Nerve Block 1: Main Anesthesia: general anesthesia Time Out Performed: Yes Consent: requested by attending/covering physician Nerve block location: brachial plexus Anesthesia monitors applied: pulse oximetry, EKG and BP cuff Nerve block position: semi sitting Anesthetic Used: ropivicaine 0.5% Amount of anesthesia used (mL): 30 Ultrasound used to: visualize and ID brachial plexus Nerve Stimulator Used?: No Interscalene/Femoral BLK: 2 stimuplex 22 g needle used for position and inplane approach and visualize local anesthetic spread Injection: neg aspiration of heme Patient Tolerated Procedure: no complications
--- NOTE | 2023-09-23 08:01 | SUR.PREOP ---
0755-Time out was completed at bedside for a nerve block performed by Anesthesia. Patient tolerated well. BP elevated, other VS wnl
--- NOTE | 2023-09-23 08:22 | W.PM.OPSFHP ---
Same Day Surgery H&P Indication for Procedure/HPI DATE OF PROCEDURE: September 23, 2023 CHIEF COMPLAINT/INDICATIONFOR SURGICAL PROCEDURE: Left shoulder biceps tendinitis/tear, subacromial impingement PREOP DIAGNOSIS: Left shoulder biceps tendinitis/tear, subacromial impingement PLANNED PROCEDURE: Operation Date: 09/23/23 08:25 Proposed Procedures p Shoulder Arthroscopy, LEFT Shoulder Diagnostic & Surgical Arthroscopy(Left) - Álvaro Sandoval, s Subacromial Decompression(Left) - Álvaro Sandoval DO s Bicep Tenotomy(Left) - Álvaro Gonzalezatt, DO s Bicep Tenodesis(Left) - Álvaro Sandoval DO Medications/Allergies* Home Medications Medication Instructions Recorded Confirmed Type cetirizine 10 mg capsule (Zyrtec) 10 mg PO DAILY 05/08/19 09/22/23 History clopidogrel 75 mg tablet (Plavix) 75 mg PO DAILY 05/08/19 09/22/23 History glimepiride 4 mg tablet 4 mg PO BID 05/08/19 09/22/23 History hydroxyzine HCl 25 mg tablet 25 mg PO TID PRN Anxiety 05/08/19 09/23/23 History lisinopril 20 mg tablet 20 mg PO DAILY 05/08/19 09/22/23 History metformin 1,000 mg tablet 1,000 mg PO BID 05/08/19 09/22/23 History metoprolol tartrate 50 mg tablet 25 mg PO QPM 05/08/19 09/22/23 History sildenafil PO PRN 05/08/19 09/06/23 History hydrochlorothiazide 12.5 mg tablet 12.5 mg PO DAILY 06/21/19 09/22/23 History pantoprazole 20 mg tablet,delayed 20 mg PO DAILY 10/17/19 09/22/23 History release gemfibrozil 600 mg tablet 600 mg PO BID 02/04/21 09/22/23 History icosapent ethyl 1 gram capsule 2 g PO BID 02/04/21 09/22/23 History (Vascepa) insulin degludec 100 unit/mL 15 unit SUBCUT DAILY 04/10/21 09/22/23 History subcutaneous solution (Tresiba U-100 Insulin) Allergies/Adverse Reactions Allergy/AdvReac Type Severity Reaction Status Date / Time codeine AdvReac Unknown ADR-Nausea Verified 09/22/23 12:59 morphine AdvReac Unknown ADR/ALGY-Fl Verified 09/22/23 12:59 ushing Current Medications: Generic Name Dose Route Start Last Admin Trade Name Yoandy PRN Reason Stop Dose Admin Sodium Chloride 1,000 mls @ 30 mls/hr 09/23/23 07:00 09/23/23 07:13 Sodium Chloride 0.9% IV 09/24/23 06:59 30 mls/hr .Q24H ALVARO Administration Pertinent History/Comorbid Conditions* Medical History Cigarette smoker motivated to quit Chronic low back pain Shoulder impingement Abdominal hernia Acute right ankle pain Acute bilateral low back pain Acute pain of left shoulder Encounter for long-term opiate analgesic use Back pain with history of spinal surgery Opioid contract exists Lumbar back pain Smoker Surgical History (Updated 05/09/19 @ 10:18 by Carlton Carmona MD) Hx of shoulder surgery History of carpal tunnel surgery Hx of abdominal surgery Hx of oral surgery H/O sinus surgery History of lumbar surgery History of ankle surgery Family History (Updated 05/08/19 @ 11:23 by Kirstin Rock LPN) Aneurysm Cancer Social History Smoking and tobacco/nicotine status: current every day tobacco/nicotine user cigarettes Packs smoked per day: 1 Alcohol intake: current Alcohol intake frequency: few times a month Substance/Drug Use: unknown Pertinent Exam Findings alert, oriented x 3, operative site marked and procedure specific exam findings Please refer to detailed orthopedic examination on 08/12/2023: Cervical Spine -Negative Spurling's Test Left Shoulder -Tender to palpation over biceps tendon and ac joint pain -Range of motion-active 0-180 degrees pain with end range of motion -Rotator cuff strength internal and external 5/5 -Jobes test-positive with pain no weakness -Speed's Test-positive with pain no weakness -O'Briens test-positive with pain no weakness -Reeder impingement-positive -Radial pulse 2+, normal cap refill under 2 seconds and patient can wiggle fingers. -Sensation to hand intact Recommendations Surgery/Procedure today Other Plans: Plan to proceed to the OR today for left shoulder diagnostic and surgical arthroscopy with subacromial decompression, possible biceps tenotomy versus tenodesis. Patient understands the ins and outs procedure risk benefits complication alternatives of surgery and through shared decision-making elects proceed with surgical intervention all questions answered at this time. Coding Level of Care Code Acute Code for Chg Fwd
[2023-09-23] MEDS: ceFAZolin 2,000 MG in sodium chloride 0.9% (plus) 50 ML 100 MG IV (08:29)
[2023-09-23] MEDS: EPINEPHrine 1 mg/mL INJ 2 MG XX (09:20)
[2023-09-23] MEDS: ondansetron 2 mg/ML SDV 2 mL 4 MG IVP (10:30)
--- NOTE | 2023-09-23 10:49 | W.PM.BPON ---
Date of Procedure: [09/23/2023] Surgeon: [Álvaro Sandoval DO] [place] Hand(s): None Procedure(s) performed: Left shoulder diagnostic and surgical arthroscopy with rotator cuff tendon repair of supraspinatus tendon (small) Left shoulder diagnostic and surgical arthroscopy with rotator cuff tendon repair of subscapularis tendon Left shoulder diagnostic and surgical arthroscopy with labral debridement Left shoulder diagnostic and surgical arthroscopy with subacromial decompression (acromioplasty and bursectomy) Left shoulder diagnostic and surgical arthroscopy with glenohumeral joint chondroplasty Findings of the procedure(s): Patient was found to have 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 When I got in the biceps tendon 1 is able to be identified as as result this was likely already released from prior surgical intervention. No work was done to the bicep tendon patient had procedure as stated above without issues or complications taken to PACU in stable condition. Estimated blood loss: 10 mL Specimen(s) removed: None Post-operative diagnosis: Left shoulder subscapularis tendon tear, right shoulder supraspinatus tendon tear, labral tearing, subacromial impingement, glenohumeral joint chondromalacia
--- NOTE | 2023-09-23 10:51 | PM.OP ---
Operative Report Date of procedure: September 23, 2023 Surgeon: Álvaro Sandoval DO Procedure: Preoperative diagnosis: Left shoulder biceps tendinitis/tear, subacromial impingement Post-op diagnosis: Left shoulder subscapularis tendon tear, right shoulder supraspinatus tendon tear, labral tearing, subacromial impingement, glenohumeral joint chondromalacia Procedure done: Left shoulder diagnostic and surgical arthroscopy with rotator cuff tendon repair of supraspinatus tendon (small) Left shoulder diagnostic and surgical arthroscopy with rotator cuff tendon repair of subscapularis tendon Left shoulder diagnostic and surgical arthroscopy with labral debridement Left shoulder diagnostic and surgical arthroscopy with subacromial decompression (acromioplasty and bursectomy) Left shoulder diagnostic and surgical arthroscopy with glenohumeral joint chondroplasty Surgeon: Álvaro Sandoval DO Estimated blood loss: 10mL IV fluids: 1300mL Implants: Arthrex 4.75 swivel lock x2 Arthrex scorpion and suture tape x 2 Complications: None Condition: stable Disposition: same day Brief History: Patient been seen and worked up in the outpatient setting for Left shoulder pain.? Pt had an MRI which showed findings below.? Patient's failed conservative treatment and has weakness.? We talked about treatment options far as nonoperative and operative intervention..? We talked about risk benefits complication alternatives surgical nonsurgical treatment options.? Understanding risk of surgery he agrees to proceed with surgical intervention.? All questions have been answered at this time.? Patient elects proceed with surgery and consent obtained in office. MR/MR shoulder LT wo con* [id number] IMPRESSION: 1. Prior resection of the distal clavicle. 2. Subacromial space is preserved. Rotator cuff is intact. 3. Tiny amount of tendinopathy in the distal supraspinatus at the insertion. 4. Small biceps tendon intact in the bicipital groove. 5. Moderate degenerative narrowing of the glenohumeral articulation. Procedure: Patient seen evaluated in the preoperative holding area.? Consent reviewed and signed with patient.? Once again reviewed patient's MRI results as well as? planned surgical intervention.? Correct extremity marked.? Patient seen evaluated by anesthesia department received regional anesthesia.? Once ready for surgery was taken back to the operative suite.? Patient then subsequently underwent anesthesia per the anesthesia department was transported onto the OR table.? Patient was then placed into a lateral decubitus position with a beanbag and was appropriately secured to the bed.? All bony prominences well-padded.? Patient then had the Left upper extremity was then prepped and draped in standard orthopedic fashion.? Patient received appropriate preoperative antibiotics.? Final timeout performed. The Left upper extremity was then held in hanging from traction utilizing sterile technique.? Next started with standard diagnostic and surgical arthroscopy with posterior portal position introduced arthroscope into the glenohumeral joint.? Visualized the glenohumeral joint I then introduced a spinal needle within the?rotator?cuff interval to confirm appropriate anterior portal placement.? Once this was confirmed I then made my?small?incision and then introduced my arthroscopic shaver into the glenohumeral joint.? After thorough debridement was clearly evident patient did not have any bicep tendon this was likely already released from prior surgery. As result no biceps tendon work was performed. Next I evaluated the subscapularis tendon which was found to have a tear of the upper border of the subscapularis tendon. At this point time I utilized a blunt probe to release adhesions on the anterior and posterior aspects of the subscapularis tendon as well as gently debrided this in preparation for repair. Next I opened up the anterior incision a little more to accommodate for purple passport cannula with Arthrex. This was then advanced appropriate position and then I subsequently utilized an arthroscopic scorpion to pass a fiber link/tape through the subscapularis tendon and luggage tag fashion and then subsequently an additional pass through for additional fixation and purchase of the tendon. Once I had appropriate purchase and control I then loaded this onto a 4.75 swivel lock Necker punch was placed directly adjacent to the insertion site laterally and at this point in time they were loaded under appropriate tension advanced the 4.75 swivel lock and had excellent fixation I then subsequently removed the resident care technician device and excess sutures were then cut this completed the subscapularis tendon repair. ?Next there was significant labral tearing at biceps anchor and circumferential.? ? I then subsequently utilized a a arthroscopic shaver and thermal wand to perform a labral debridement.? This point time I then visualized the glenohumeral joint.? The glenohumeral joint was found to have grade 3? chondromalacia throughout. I utilized a thermal wand and arthroscopic shaver to perform a glenohumeral joint chondroplasty to stable articular tissue given the grade III chondromalacia.? Axillary pouch was free of loose bodies from viewing the posterior portal.? Next a visualized the?rotator?cuff superiorly and there was found to be a possible?small?undersurface tearing of the supraspinatus tendon.? I utilized a spinal needle to mauricio this location.?? This completed my work within the glenohumeral joint all fluid was suctioned free of the joint.? ?Next I reintroduced the arthroscope posteriorly.? And went to the subacromial space.? I established my lateral working portal at the site of which my spinal needle was marking of the?rotator?cuff tear.? Thermal wand was then introduced laterally and then I subsequently performed extensive bursectomy of the subacromial space.? Patient had a large anterior bone spur.? At this point time I proceeded with my AC joint resection thermal wand was used and track to the anterior edge of the acromion and then tracked all the way to the AC joint.? Identified the AC joint which had a prior AC joint resection no work was done in the AC joint.? I then performed an acromioplasty to complete my subacromial decompression prior to fixing the?rotator?cuff tear.? Next the arthroscopic shaver was then used previous spinal needle spot that is marked the?small?hole in the?rotator?cuff this was consistent with a?small?full-thickness tear.? Given the?small?size this did not need a medial and lateral row configuration as result my plan was for a horizontal mattress stitch with a single lateral row anchor.? As result I loaded and Arthrex scorpion with fiber tape and subsequently.? A horizontal mattress purchase appropriately spaced to the?small?tear of the supraspinatus tendon.? At this point in time and then introduced a shaver to debride the?rotator?cuff footprint and decorticate the footprint in preparation for repair, next I marked by swivel lock position.? Fiber tape was then loaded into a 4.75 swivel lock I then subsequently punched and then subsequently placement 4.75 swivel lock while maintaining appropriate tension and repair of?rotator?cuff and this was advanced with excellent fixation I then had a final confirmation of appropriate repair of the supraspinatus?rotator?cuff tendon tear.? Sutures were then cut with an arthroscopic suture cutter and subsequently evaluated the?rotator?cuff repair.? Repair was found to be satisfactory shoulder was taken through range of motion and the repair moved as a unit with no evidence of loss of fixation. ?I then switched the arthroscope to the lateral portal to confirm this tension-free repair.? I took the shoulder through range of motion and the?rotator?cuff repair was stable and moved as a unit. ?Next I then introduced the arthroscopic shaver posteriorly to complete my subacromial decompression appropriate complaining all the way up to the lateral edge of the acromion.? This completed the surgery.? All fluid was suctioned from the shoulder.? All instruments were removed.? The lateral incision was then closed with nylon stitches.? As well as the portal sites closed with portal nylon stitches.? Xeroform 4 x 4's ABD and tape was then applied to the Left shoulder and was placed into a shoulder abduction pillow sling for?rotator?cuff repair.? Patient was then awakened from anesthesia and then taken back to PACU in stable condition.? Patient tolerated procedure without any issues. Disposition: Patient taken back in stable condition recovering well.? Dressings on in place clean dry and intact.? Will be nonweightbearing to the Left upper extremity.? Follow?rotator?cuff repair protocol.? Patient to follow-up with me in the office in 2 weeks.? Patient will receive appropriate discharge instruction as well as pain medication postoperatively.? All questions answered.? We will contact the office for any questions or concerns.
--- NOTE | 2023-09-23 15:38 | ANE.PACU2 ---
Inpatient post-anesthesia follow up: Airway intact: Yes Vital signs: Temperature 97.0 F Pulse Rate 79 Respiratory Rate 17 Blood Pressure 131/82 Pulse Oximetry 91 Oxygen Delivery Me thod Room Air Oxygen Flow Rate 6 Fraction of Inspir ed Oxygen Hydration adequate: Yes Nausea and vomiting: No Pain level: controlled Mental status: Baseline Additional Comments: no apparent anesthetic complications noted
== END 2023-09-23 11:21 | disposition home or self-care (01) ==
PROVIDERS: PCP Family Medicine; Visit Provider Student in an Organized Health Care Education/Training Program
PROC: (CPT 29805; principal; 2023-09-23 08:15)
PROC: (CPT 29826; 2023-09-23 08:15)
DX: S46.812A Strain of other muscles, fascia and tendons at shoulder and upper arm level, left arm, initial encounter (principal); X58.XXXA Exposure to other specified factors, initial encounter; M25.812 Other specified joint disorders, left shoulder; M94.212 Chondromalacia, left shoulder; F17.210 Nicotine dependence, cigarettes, uncomplicated; I10 Essential (primary) hypertension; Z79.02 Long term (current) use of antithrombotics/antiplatelets; E11.9 Type 2 diabetes mellitus without complications; Z86.73 Personal history of transient ischemic attack (TIA), and cerebral infarction without residual deficits
CPT/HCPCS: 29822; 29826; 29827; 36416; 82962; C1713; J0131; J0171; J0690; J1100; J1885; J2405; J2704; J3010; J3490; J7030

== ENCOUNTER 2023-10-02 15:23 | Emergency (ER) | payer MEDICARE, SELFPAY ==
[2023-10-02 15:29] VITALS: BP 170/100; PULSE 97; RESP 17; TEMP 36.6; O2SAT 95; BMI 33.8
--- NOTE | 2023-10-02 15:48 | USR_ITS ---
PROCEDURE INFORMATION: Exam: US Duplex Left Upper Extremity Veins, Limited Exam date and time: 10/02/2023 4:43 PM Age: 58 years old Clinical indication: Pain; Arm, lower; Prior surgery; Surgery date: <1 month; Surgery type: Left rotator cuff surg; Additional info: Arm swelling post-op TECHNIQUE: Imaging protocol: Real-time duplex ultrasound of the left extremity with 2-D lopez scale, color Doppler flow and spectral waveform analysis including responses to compression and other maneuvers (when performed) with image documentation. Limited exam focused on the left upper extremity veins. COMPARISON: MR shoulder LT wo con* [id number] 07/15/2023 4:44 PM FINDINGS: Left deep veins: Internal jugular, subclavian, axillary, brachial, radial and ulnar veins patent without thrombus. Normal compressibility, augmentation response and/or Doppler waveforms. Superficial veins: Unremarkable. Visualized cephalic and basilic veins are patent without thrombus. Soft tissues: Unremarkable. US/[place] [id number] IMPRESSION: No sonographic evidence of deep vein thrombosis.
[2023-10-02 16:22] LABS: Basophils # 0.1 10^3/uL (0.0-0.1); Eosinophils # 0.3 10^3/uL (0.0-0.8); Eosinophils % 4.2 %; Hematocrit 41.2 % (37-53); Lymphocytes # 1.8 10^3/uL (0.8-4.8); Lymphocytes % 30.1 %; Mean Corpuscular Hemoglobin 26.6 pg (27-33); Mean Corpuscular Volume 80.6 fl (82-101); Mean Platelet Volume 10.1 fL (7.4-10.4); Monocytes # 0.6 10^3/uL (0.2-0.9); Monocytes % 10.4 %; Neutrophils # 3.15 10^3/uL (1.8-7.7); Neutrophils % 53.5 %; Nucleated Red Blood Cells % 0 %; Platelet Count 230 10^3/cmm (157-399); Red Blood Count 5.11 10^6/uL (3.85-5.65); White Blood Count 5.89 10^3/uL (3.29-11.43)
[2023-10-02] MEDS: ketorolac 30 mg/mL INJ IVP (16:23)
--- NOTE | 2023-10-02 16:25 | ED_ITS ---
HPI - Extremity Problem 2 General: Chief complaint: Extremity Injury, Upper Stated complaint: post surgery left arm pain, swelling Time Seen by Provider: 10/02/23 15:48 History of Present Illness: 58-year-old male presents emergency room with complaint of swelling and discomfort in his left arm. On patient had a arthroscopy of the left shoulder. He is get some bruising and swelling and discomfort particular on the elbow he has not had any fever sweats or chills no trauma or fall. He is still wearing a sling he has not noticed any drainage from the incisions for his shoulder arthroscopy. Associated symptoms: Deny chest pain, fever(s) or rash Review of Systems 2 Const: Denies: fever(s) or chills Card: Denies: chest pain Resp: Denies: dyspnea GI: Denies: abdominal pain : Denies: dysuria, urinary frequency or urinary urgency Musc: Denies: neck pain or back pain Skin/Breast: Denies: rash PFSH ED 2 PFSH: Medical History Cigarette smoker motivated to quit Chronic low back pain Shoulder impingement Abdominal hernia Acute right ankle pain Acute bilateral low back pain Acute pain of left shoulder Encounter for long-term opiate analgesic use Back pain with history of spinal surgery Opioid contract exists Lumbar back pain Smoker Surgical History Hx of shoulder surgery History of carpal tunnel surgery Hx of abdominal surgery Hx of oral surgery H/O sinus surgery History of lumbar surgery History of ankle surgery Family History Other Aneurysm Cancer Social History Smoking and tobacco/nicotine status: current every day tobacco/nicotine user cigarettes Packs smoked per day: 1 Alcohol intake: current Alcohol intake frequency: few times a month Substance/Drug Use: unknown Physical Exam 2 Const: COMMON NORMALS: no acute distress GENERAL APPEARANCE: cooperative and comfortable ORIENTATION/CONSCIOUSNESS: Yes awake, Yes oriented to person, Yes oriented to place and Yes oriented to time HENMT: COMMON NORMALS: normocephalic, atraumatic and hearing grossly normal bilaterally HEAD & SCALP: normocephalic and atraumatic Resp: COMMON NORMALS: normal respiratory effort, No retractions, No use of accessory muscles and clear to auscultation bilaterally AUSCULTATION: clear to auscultation bilaterally Cardio: COMMON NORMALS: regular rate, regular rhythm and No murmurs present (Cardio) RATE: regular rate RHYTHM: regular rhythm Extremity: OTHER: Moderate swelling and ecchymosis of the left arm particularly in the medial distal upper arm. No epitrochlear nodes no axillary nodes. Incision sites for the arthroscopy appear normal there is no acute inflammation redness or dehiscence or drainage from these wounds. Neuro: SENSORIUM/ORIENTATION: Yes oriented to person, Yes oriented to place and Yes oriented to time Skin: COMMON NORMALS: no rashes or lesions noted GENERAL SKIN EXAM: no rashes or lesions noted Course 2 Vital Signs: Vital signs: Vital Signs Temperature 97.9 F 10/02/23 15:29 Pulse Rate 97 10/02/23 15:29 Respiratory Rate 17 10/02/23 15:29 Blood Pressure 170/100 10/02/23 15:29 Pulse Oximetry 95 10/02/23 15:29 Oxygen Delivery Me thod Room Air 10/02/23 15:29 MDM - Extremity (Nontraumatic) Medical Decision Making Ultrasound does not show any venous thrombosis in the upper extremity. White count normal no signs clinically of infection like a lot of this is just soft tissue swelling that is gone to dependent areas. Will discharge patient home. Patient has follow-up with orthopedics this week which she should keep can apply ice as needed should continue to abide by restrictions advised by Dr. Villagran at the time of discharge from his previous procedure. Lab Data 10/02/23 16:17 10/02/23 16:17 Radiology Impressions Venous Duplex 10/02/23 15:48 IMPRESSION: No sonographic evidence of deep vein thrombosis. Laboratory Results WBC 5.89 10^3/uL (3.29-11.43) 10/02/23 16:17 RBC 5.11 10^6/uL (3.85-5.65) 10/02/23 16:17 Hgb 13.60 g/dL (11.27-16.99) 10/02/23 16:17 Hct 41.2 % (37-53) 10/02/23 16:17 MCV 80.6 fl (82-101) L 10/02/23 16:17 MCH 26.6 pg (27-33) L 10/02/23 16:17 MCHC 33.0 g/dL (30-55) 10/02/23 16:17 RDW 14.0 % (12.1-15.1) 10/02/23 16:17 Plt Count 230 10^3/cmm (157-399) 10/02/23 16:17 MPV 10.1 fL (7.4-10.4) 10/02/23 16:17 Neut % (Auto) 53.5 % 10/02/23 16:17 Lymph % (Auto) 30.1 % 10/02/23 16:17 [place] % (Auto) 10.4 % 10/02/23 16:17 Eos % (Auto) 4.2 % 10/02/23 16:17 Baso % (Auto) 1.0 % 10/02/23 16:17 Neut # (Auto) 3.15 10^3/uL (1.8-7.7) 10/02/23 16:17 Lymph # (Auto) 1.8 10^3/uL (0.8-4.8) 10/02/23 16:17 [place] # (Auto) 0.6 10^3/uL (0.2-0.9) 10/02/23 16:17 Eos # (Auto) 0.3 10^3/uL (0.0-0.8) 10/02/23 16:17 Baso # (Auto) 0.1 10^3/uL (0.0-0.1) 10/02/23 16:17 Nucleated RBC % (auto) 0 % 10/02/23 16:17 Nucleated RBCs # 0.0 /100WBC 10/02/23 16:17 Sodium 142 mmol/L (136-145) 10/02/23 16:17 Potassium 3.9 mmol/L (3.5-5.1) 10/02/23 16:17 Chloride 104 mmol/L (98-107) 10/02/23 16:17 Carbon Dioxide 24 mmol/L (22-29) 10/02/23 16:17 Anion Gap 17.9 (5-19) 10/02/23 16:17 BUN 15 mg/dL (8-23) 10/02/23 16:17 Creatinine 1.0 mg/dL (0.7-1.2) 10/02/23 16:17 GFR Calculation 76.2 mL/min (90-130) L 10/02/23 16:17 Glucose 132 mg/dL (65-115) H 10/02/23 16:17 Calculated Osmolality 297 mOsm/kg (285-295) H 10/02/23 16:17 Calcium 9.5 mg/dL (8.5-10.5) 10/02/23 16:17 Total Bilirubin 0.3 mg/dL (0.15-1.2) 10/02/23 16:17 AST 22 U/L (0-40) 10/02/23 16:17 ALT 21 U/L (0-41) 10/02/23 16:17 Alkaline Phosphatase 93 U/L (40-130) 10/02/23 16:17 Total Protein 7.4 g/dL (6.6-8.7) 10/02/23 16:17 Albumin 4.3 g/dL (3.5-5.2) 10/02/23 16:17 Globulin 3.1 g/dL (1.3-4.6) 10/02/23 16:17 All radiology interpretation(s) finalized by discharge Discharge Plan Discharge Patient Disposition: Home Clinical Impression: Edema of left upper arm, Traumatic ecchymosis of left upper arm Condition: Stable Prescriptions: No Action hydrochlorothiazide 12.5 mg tablet 12.5 mg PO DAILY pantoprazole 20 mg tablet,delayed release (DR/EC) 20 mg PO DAILY gemfibrozil 600 mg tablet 600 mg PO BID icosapent ethyl [Vascepa] 1 gram capsule 2 g PO BID lisinopril 20 mg tablet 20 mg PO DAILY hydroxyzine HCl 25 mg tablet 25 mg PO TID PRN (Reason: Anxiety) metformin 1,000 mg tablet 1,000 mg PO BID clopidogrel [Plavix] 75 mg tablet 75 mg PO DAILY Zyrtec 10 mg capsule 10 mg PO DAILY sildenafil PO PRN metoprolol tartrate 50 mg tablet 25 mg PO QPM glimepiride 4 mg tablet 4 mg PO BID Tresiba U-100 Insulin 100 unit/mL solution 15 unit SUBCUT DAILY hydrocodone-acetaminophen 5-325 mg tablet 1 tab PO .5times a day PRN (Reason: pain) 30 Days Qty: 150 0RF (DME) Diabetic Shoes with 3 sets of insoles See Rx Instructions .Route .MEDSUPPLY Qty: 1 0RF Rx Instructions: As directed by [employer] (DME) Diabetic Shoes with 3 sets of insoles See Rx Instructions .Route .MEDSUPPLY Qty: 1 0RF Rx Instructions: As directed by HOME (DME) AFO to right See Rx Instructions .Route .MEDSUPPLY Qty: 1 0RF Rx Instructions: As directed by the brigid ruiz Discharge Orders: Discharge ED (Routine); Ordered 10/02/23 Ordered By: Ajay Ramos Patient Instructions: Opioid Safety, Pain Management Activity Restrictions/Additional Instructions: Thank you for choosing [facility] for your healthcare needs today. It is very important that you follow up as instructed or that you return to the Emergency Department should you have concerns or if your condition changes or worsens in any way. You are seen emergency room for swelling in the left upper arm. There is significant bruising and swelling. Ultrasound did not show any sign of a clot in the upper arm there is no sign of infection. Follow-up with orthopedics as scheduled later this week. Coding Level of Care Code ED Distribution Lineman for Oren Small
[2023-10-02 16:41] LABS: Alanine Aminotransferase 21 U/L (0-41); Albumin Level 4.3 g/dL (3.5-5.2); Alkaline Phosphatase 93 U/L (40-130); Anion Gap 17.9 (5-19); Aspartate Amino Transferase 22 U/L (0-40); Blood Urea Nitrogen 15 mg/dL (8-23); Calcium 9.5 mg/dL (8.5-10.5); Carbon Dioxide 24 mmol/L (22-29); Chloride 104 mmol/L (98-107); Creatinine Clr Calc Pharmacy 96.2436; Globulin 3.1 g/dL (1.3-4.6); Glomerular Filtration Rate 76.2 mL/min (90-130); Glucose 132 mg/dL (65-115); Osmolality Calculated 297 mOsm/kg (285-295); Potassium 3.9 mmol/L (3.5-5.1); Sodium 142 mmol/L (136-145); Total Bilirubin 0.3 mg/dL (0.15-1.2); Total Protein 7.4 g/dL (6.6-8.7)
== END 2023-10-02 18:14 | disposition home or self-care (01) ==
PROVIDERS: Emergency Provider Family Medicine
DX: R60.0 Localized edema (principal); S40.022A Contusion of left upper arm, initial encounter; Z79.02 Long term (current) use of antithrombotics/antiplatelets; Z79.84 Long term (current) use of oral hypoglycemic drugs; Z79.4 Long term (current) use of insulin; F17.210 Nicotine dependence, cigarettes, uncomplicated
CPT/HCPCS: 80053; 85025; 93971; 96374; 99285; J1885

== ENCOUNTER → 2023-10-06 14:02 | Outpatient (BNVA) | payer MEDICARE, SELFPAY | PROVIDERS: Visit Provider Physician Assistant | DX: Z98.890 Other specified postprocedural states (principal) | CPT/HCPCS: 99024 ==

== ENCOUNTER 2023-10-06 16:55 | Outpatient (CLI) | payer MEDICARE, SELFPAY | END 2023-10-06 16:56 | disposition home or self-care (01) | LOC: SPT 16:56 | PROVIDERS: Visit Provider Physician Assistant | DX: Z47.89 Encounter for other orthopedic aftercare (principal); Z98.890 Other specified postprocedural states | CPT/HCPCS: 97760; L3670 ==

== ENCOUNTER 2023-10-31 09:35 | Emergency (ER) | payer MEDICARE, SELFPAY ==
[2023-10-31 09:55] VITALS: BP 180/110; PULSE 95; RESP 22; TEMP 36.5; O2SAT 98; BMI 33.5
--- NOTE | 2023-10-31 10:31 | ED_ITS ---
HPI - Extremity Problem General: Chief complaint: Extremity Problem,Nontraumatic Stated complaint: Pain Left Arm Time Seen by Provider: 10/31/23 10:11 History of Present Illness: This is a pleasant 58-year-old male here by private vehicle along with his who acts as an additional historian. Patient had left shoulder surgery by Dr. Sandoval on September 23, 2023. I have reviewed the operative note as the patient was unfamiliar with what procedure was performed. 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 When I got in the biceps tendon 1 is able to be identified as as result this was likely already released from prior surgical intervention. No work was done to the bicep tendon patient had procedure as stated above without issues or complications taken to PACU in stable condition. The patient has had acute pain over the last 4 days. He says he protects the shoulder and has no idea what would have caused this flareup. He has a deep aching in the left shoulder that radiates towards his neck and down towards his left elbow as well as all throughout the shoulder itself. It keeps him up at night. He has on hydrocodone 5?3 25 4 times a day as a baseline chronic pain management. He does have Flexeril 5 mg tablets available to him. He took 1 last night because he could not sleep on account of the pain. He sleeps with his arm wrapped around pillow and on his right side. He denies any fever, chills, redness or warmth of the shoulder. The incisions are well-healed. Patient reports his blood pressure is up on account of the pain today. Unfortunately he is diabetic and cannot take steroids for inflammation due to challenges getting his A1c under control. Associated symptoms: Deny chest pain, fever(s) or rash Related Data Home Medications Medication Instructions Recorded Confirmed cetirizine 10 mg capsule (Zyrtec) 10 mg PO DAILY 05/08/19 10/06/23 clopidogrel 75 mg tablet (Plavix) 75 mg PO DAILY 05/08/19 10/06/23 glimepiride 4 mg tablet 4 mg PO BID 05/08/19 10/06/23 hydroxyzine HCl 25 mg tablet 25 mg PO TID PRN Anxiety 05/08/19 10/06/23 lisinopril 20 mg tablet 20 mg PO DAILY 05/08/19 10/06/23 metformin 1,000 mg tablet 1,000 mg PO BID 05/08/19 10/06/23 metoprolol tartrate 50 mg tablet 25 mg PO QPM 05/08/19 10/06/23 sildenafil PO PRN 05/08/19 10/06/23 hydrochlorothiazide 12.5 mg tablet 12.5 mg PO DAILY 06/21/19 10/06/23 pantoprazole 20 mg tablet,delayed 20 mg PO DAILY 10/17/19 10/06/23 release gemfibrozil 600 mg tablet 600 mg PO BID 02/04/21 10/06/23 icosapent ethyl 1 gram capsule 2 g PO BID 02/04/21 10/06/23 (Vascepa) insulin degludec 100 unit/mL 15 unit SUBCUT DAILY 04/10/21 10/06/23 subcutaneous solution (Tresiba U-100 Insulin) Previous Rx's Medication Instructions Recorded hydrocodone 5 mg-acetaminophen 325 1 tab PO .5times a day PRN pain 30 04/10/21 mg tablet days #150 tabs Diabetic Shoes with 3 sets of #1 ea 09/30/21 insoles Diabetic Shoes with 3 sets of #1 ea 11/05/21 insoles AFO to right #1 ea 12/14/22 oxycodone 5 mg tablet 5 mg PO Q6H PRN pain 7 days #28 10/05/23 tabs Shoulder Immobilizer #1 ea 10/06/23 ketorolac 10 mg tablet 10 mg PO Q8H 5 days #15 tabs 10/31/23 Allergies Allergy/AdvReac Type Severity Reaction Status Date / Time codeine AdvReac Unknown ADR-Nausea Verified 10/31/23 10:02 morphine AdvReac Unknown ADR/ALGY-Fl Verified 10/31/23 10:02 ushing Review of Systems General: Reports: 10 or more systems reviewed and unremarkable except in HPI and below Const: Denies: fever(s) or chills Card: Denies: chest pain or syncope Musc: Reports: neck pain, back pain, extremity pain, joint pain and limited range of motion; Denies: extremity swelling, joint swelling, joint redness or deformity Skin/Breast: Denies: rash or erythema Neuro: Denies: headache(s), numbness in extremities, weakness in extremities, lack of coordination or difficulty walking PFSH ED PFSH: Medical History Cigarette smoker motivated to quit Chronic low back pain Shoulder impingement Abdominal hernia Acute right ankle pain Acute bilateral low back pain Acute pain of left shoulder Encounter for long-term opiate analgesic use Back pain with history of spinal surgery Opioid contract exists Lumbar back pain Smoker Surgical History Hx of shoulder surgery History of carpal tunnel surgery Hx of abdominal surgery Hx of oral surgery H/O sinus surgery History of lumbar surgery History of ankle surgery Family History Other Aneurysm Cancer Social History Smoking and tobacco/nicotine status: current every day tobacco/nicotine user cigarettes Packs smoked per day: 1 Alcohol intake: current Alcohol intake frequency: few times a month Substance/Drug Use: unknown Physical Exam Const: COMMON NORMALS: no limitations, alert and well nourished EXAM LIMITATIONS: no altered mental status HENMT: COMMON NORMALS: normocephalic, atraumatic and external ears normal HEAD & SCALP: normocephalic and atraumatic EXTERNAL EAR: Yes external ears normal MOUTH: no muffled voice Eye: COMMON NORMALS: EOMs intact bilaterally, conjunctivae normal and no scleral icterus CONJUNCTIVA: Yes conjunctivae normal Neck/C-Spine: GENERAL: Yes normal visual inspection and Yes trachea midline Resp: COMMON NORMALS: normal respiratory effort and No use of accessory muscles Cardio: COMMON NORMALS: regular rate RATE: regular rate Extremity: OTHER: The patient has myofascial tenderness all along the neck, trapezius, periscapular region. He has tenderness all throughout the left shoulder joint. There is no overlying redness or excessive warmth. 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 Radial pulses 2+. Cap refill in the fingers is normal. Sensation over the deltoid region is normal. He has limited range of motion in the left shoulder due to pain. This limits the examination since he has pain in every direction. There is no visible swelling. The bony exam is unremarkable and there are no deformities. The surgical incisions are well-healed. Neuro: COMMON NORMALS: moves all extremities, no focal motor deficits and no sensory deficits noted SENSORIUM/ORIENTATION: Yes alert SPEECH: speech normal Psych: COMMON NORMALS: mental status grossly normal, Normal thought process present, cooperative, normal affect and speech normal SPEECH: Yes normal speech THOUGHT PROCESS: Normal thought process present Skin: COMMON NORMALS: no rashes or lesions noted, turgor normal and no jaundice GENERAL SKIN EXAM: no rashes or lesions noted and turgor normal Course Vital Signs: Vital signs: Vital Signs Temperature 97.7 F 10/31/23 09:55 Pulse Rate 95 10/31/23 09:55 Respiratory Rate 22 H 10/31/23 09:55 Blood Pressure 180/110 10/31/23 09:55 Pulse Oximetry 98 10/31/23 09:55 Oxygen Delivery Me thod Room Air 10/31/23 09:55 MDM - Extremity (Nontraumatic) Medical Decision Making The patient had injuries to the subscapularis tendon, supraspinatus tendon, and had significant chondromalacia of the glenohumeral joint. It is difficult to narrow down which areas are hurting him worse on exam since he is so inflamed and tender. He does not have any signs of joint infection and is neurovascularly intact. He has no trauma. There is no bony deformity. I do not think there is any sense in getting an x-ray today since we are not expecting a bony injury. He is not having any classic neuropathy symptoms. He has significant myofascial guarding in the neck trapezius and periscapular region. He is using a shoulder immobilizer. He does not want to take a lot of pain medication and is on a pain contract. After going through all of his options, we settled on a Toradol shot in the left deltoid and a opiate pain shot in his right deltoid. I am also can give him some clonidine for his blood pressure. He does have a prescheduled follow-up with his surgeon this . He also has Flexeril available to take before bed to help with sleep. I have explained to the patient and his , there is a fairly limited subset of things we can do due to his comorbidities with steroids and inability to get nonemergent MRI performed on a Wednesday. They were understanding of this and are satisfied with the treatment plan. No radiology studies performed this visit Discharge Plan Discharge Patient Disposition: Home Clinical Impression: Acute pain of left shoulder Condition: Stable Prescriptions: New ketorolac 10 mg tablet 10 mg PO Q8H 5 Days Qty: 15 0RF Discontinued cephalexin 500 mg capsule 500 mg PO TID Qty: 21 0RF No Action hydrochlorothiazide 12.5 mg tablet 12.5 mg PO DAILY pantoprazole 20 mg tablet,delayed release (DR/EC) 20 mg PO DAILY gemfibrozil 600 mg tablet 600 mg PO BID icosapent ethyl [Vascepa] 1 gram capsule 2 g PO BID lisinopril 20 mg tablet 20 mg PO DAILY hydroxyzine HCl 25 mg tablet 25 mg PO TID PRN (Reason: Anxiety) metformin 1,000 mg tablet 1,000 mg PO BID clopidogrel [Plavix] 75 mg tablet 75 mg PO DAILY Zyrtec 10 mg capsule 10 mg PO DAILY sildenafil PO PRN metoprolol tartrate 50 mg tablet 25 mg PO QPM glimepiride 4 mg tablet 4 mg PO BID Tresiba U-100 Insulin 100 unit/mL solution 15 unit SUBCUT DAILY hydrocodone-acetaminophen 5-325 mg tablet 1 tab PO .5times a day PRN (Reason: pain) 30 Days Qty: 150 0RF (DME) Diabetic Shoes with 3 sets of insoles See Rx Instructions .Route .MEDSUPPLY Qty: 1 0RF Rx Instructions: As directed by [facility] (DME) Diabetic Shoes with 3 sets of insoles See Rx Instructions .Route .MEDSUPPLY Qty: 1 0RF Rx Instructions: As directed by HOME ([facility] [place]) Shoulder Immobilizer See Rx Instructions .Route .MEDSUPPLY Qty: 1 0RF Rx Instructions: As directed (DME) AFO to right See Rx Instructions .Route .MEDSUPPLY Qty: 1 0RF Rx Instructions: As directed by the brigid ruiz oxycodone 5 mg tablet 5 mg PO Q6H PRN (Reason: pain) 7 Days Qty: 28 0RF Discharge Orders: Discharge ED (Routine); Ordered 10/31/23 Ordered By: Jamie Corona Referrals: Álvaro Sandoval DO [Physician] - 11/04/23 (Acute exacerbation of pain following surgery) Patient Instructions: Opioid Safety, Pain Management Coding Level of Care Code ED 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
[2023-10-31 10:49] VITALS: BP 180/110; RESP 18; O2SAT 98
[2023-10-31] MEDS: ketorolac 30 mg/mL INJ IM (10:49)
[2023-10-31] MEDS: HYDROmorphone 1 mg/mL INJ 1 mL IM (10:49)
[2023-10-31] MEDS: cloNIDine 0.1 mg Tablet PO (10:49)
== END 2023-10-31 11:10 | disposition home or self-care (01) ==
PROVIDERS: Emergency Provider Emergency Medicine
DX: M25.511 Pain in right shoulder (principal); Z79.02 Long term (current) use of antithrombotics/antiplatelets; Z79.84 Long term (current) use of oral hypoglycemic drugs; Z79.4 Long term (current) use of insulin; F17.210 Nicotine dependence, cigarettes, uncomplicated
CPT/HCPCS: 96372; 99284; J1170; J1885

== ENCOUNTER → 2023-11-04 13:23 | Outpatient (BNVA) | payer MEDICARE, SELFPAY | PROVIDERS: Visit Provider Physician Assistant | DX: Z98.890 Other specified postprocedural states (principal) | CPT/HCPCS: 99024 ==

== ENCOUNTER 2023-11-16 06:00 | Outpatient (RCR) | payer MEDICARE, SELFPAY | END 2023-12-13 23:59 | disposition home or self-care (01) | LOC: TPT 06:00 | PROVIDERS: Visit Provider Physician Assistant | DX: Z98.890 Other specified postprocedural states (principal) | CPT/HCPCS: 97110; 97140; 97162 ==

== ENCOUNTER 2023-12-14 06:30 | Outpatient (RCR) | payer MEDICARE, SELFPAY | END 2024-01-13 23:59 | disposition home or self-care (01) | LOC: TPT 06:30 | PROVIDERS: Visit Provider Physician Assistant | DX: Z98.890 Other specified postprocedural states (principal) | CPT/HCPCS: 97110; 97140 ==

== ENCOUNTER → 2023-12-16 14:45 | Outpatient (BNVA) | payer MEDICARE, SELFPAY | PROVIDERS: Visit Provider Physician Assistant | DX: Z98.890 Other specified postprocedural states (principal) | CPT/HCPCS: 99213 ==

== ENCOUNTER 2024-01-30 14:27 | Inpatient (IN) | payer MEDICARE, SELFPAY ==
[2024-01-30] VITALS (22 sets, daily range): BP systolic 112–126; BP diastolic 76–95; PULSE 104–121; RESP 16–30; TEMP 36.7–37.5; O2SAT 90–95; BMI 32.0
--- NOTE | 2024-01-30 14:36 | XRR_ITS ---
PROCEDURE INFORMATION: Exam: XR Chest Exam date and time: 01/30/2024 2:50 PM Age: 59 years old Clinical indication: Chest pressure; Patient HX: Mediastinal pain that radiates posteriorly to area between shoulders; SOB; Current smoker x 40+ yrs TECHNIQUE: Imaging protocol: Radiologic exam of the chest. Views: 1 view. COMPARISON: CR XR chest 1V [id number] 06/05/2018 5:24 PM FINDINGS: Lungs: Unremarkable. No consolidation. Pleural spaces: Unremarkable. No pleural effusion. No pneumothorax. Heart/Mediastinum: Unremarkable. No cardiomegaly. Bones/joints: No acute osseous lesions identified. XR/XR chest 1V portable [id number] IMPRESSION: No acute findings by plain radiographs. Please see separately dictated CT angiogram of the chest report same day.
--- NOTE | 2024-01-30 14:36 | ECG_ITS ---
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 Measurements Intervals Omega Rate: 120 P: 64 NV: 143 QRS: 31 QRSD: 101 T: 59 QT: 332 QTc: 471 Interpretive Statements SINUS TACHYCARDIA MINIMAL ST DEPRESSION [0.025+ mV ST DEPRESSION] ABNORMAL RHYTHM ECG Compared to ECG 06/05/2018 21:13:23 ST (T wave) deviation now present Sinus rhythm no longer present Ventricular premature complex(es) no longer present Electronically Signed On 01-30-2024 20:23:03 TECHNOLOGY SUPPORT ANALYST by Vielka Sena M.D. [email or web address]
--- NOTE | 2024-01-30 14:43 | CTR_ITS ---
PROCEDURE INFORMATION: Exam: CTA Chest With Contrast Exam date and time: 01/30/2024 3:36 PM Age: 59 years old Clinical indication: Pain; Chest pressure; Prior surgery; Surgery date: 3-7 days post-operative; Surgery type: Shoulder; Additional info: Cp TECHNIQUE: Imaging protocol: Computed tomographic angiography of the chest with contrast. Exam focused on the arteries. 3D rendering (Not supervised by radiologist): MIP and/or 3D reconstructed images were created by the technologist. Radiation optimization: All CT scans at this facility use at least one of these dose optimization techniques: automated exposure control; mA and/or kV adjustment per patient size (includes targeted exams where dose is matched to clinical indication); or iterative reconstruction. Contrast material: OMNI 350; Contrast volume: 100 ml; Contrast route: INTRAVENOUS (IV); COMPARISON: CR (CHEST, ) 01/30/2024 2:50 PM RADIATION DOSE METRICS: Total DLP (mGy-cm): 610.59 FINDINGS: Pulmonary arteries: No visible PE. Aorta: The thoracic aorta is nonaneurysmal and there is no evidence of an aortic dissection. Lungs: Mural thickening of the bilateral lower lobe bronchioles and multifocal areas of mucoid impaction. Consider bronchitis. Old calcified granuloma in the right lower lobe. Slightly prominent interstitium in the lower lung zones. Consider a component of interstitial edema. Pleural spaces: Unremarkable. No pneumothorax. No pleural effusion. Heart: Unremarkable. No cardiomegaly. No pericardial effusion. Coronary arteries: Extensive calcified coronary artery disease. Lymph nodes: Multiple small mediastinal and subcarinal lymph nodes. There are 2 prominent lymph nodes 1 in the anterior mediastinum and 1 in the subcarinal region measuring about 1.2 cm each in short axis dimension. Liver: The left lobe of the liver appears prominent. Query subtle nodularity of the liver capsule. Changes of hepatic cirrhosis are suggested. Spleen: Splenomegaly the spleen measures 15 cm. Kidneys: Complex cystic mass right kidney. Consider nonemergent ultrasound evaluation of the kidneys. Bones/joints: No acute osseous lesions. Multilevel chronic degenerative changes throughout the thoracic spine. Soft tissues: Unremarkable. CT/CT angio chest PE protcl [id number] IMPRESSION: 1. No evidence of PE and the thoracic aorta is unremarkable. 2. Mural thickening of the bilateral lower lobe bronchioles and multifocal areas of mucous plugging. Consider bronchitis. 3. Slightly prominent interstitium in the lower lung zones. Consider a component of interstitial edema. 4. Suspected hepatic cirrhosis and splenomegaly. 5. Complex cystic mass right kidney. Consider nonemergent renal ultrasound to further evaluate. 6. Extensive calcified coronary artery disease.
--- NOTE | 2024-01-30 14:44 | ED_ITS ---
HPI - Chest Pain 2 General: Chief Complaint: Chest Pain Stated Complaint: chest pain Time Seen by Provider: 01/30/24 14:36 Source: patient Mode of arrival: ambulatory Limitations: no limitations History of Present Illness: 59-year-old male presents here with ches t pain. He states his chest pains been sharp he states he has been having issues like this for a year since he had his rotator cuff surgery states he gets sharp pains in his back that shoots to his chest he seems like its much worse with movement and certain positions and palpation he denies any dyspnea denies any vomiting or nausea. Related Data Home Medications Medication Instructions Recorded Confirmed cetirizine 10 mg capsule (Zyrtec) 10 mg PO DAILY 05/08/19 12/16/23 clopidogrel 75 mg tablet (Plavix) 75 mg PO DAILY 05/08/19 12/16/23 glimepiride 4 mg tablet 4 mg PO BID 05/08/19 12/16/23 hydroxyzine HCl 25 mg tablet 25 mg PO TID PRN Anxiety 05/08/19 12/16/23 lisinopril 20 mg tablet 20 mg PO DAILY 05/08/19 12/16/23 metformin 1,000 mg tablet 1,000 mg PO BID 05/08/19 12/16/23 metoprolol tartrate 50 mg tablet 25 mg PO QPM 05/08/19 12/16/23 sildenafil PO PRN 05/08/19 12/16/23 hydrochlorothiazide 12.5 mg tablet 12.5 mg PO DAILY 06/21/19 12/16/23 pantoprazole 20 mg tablet,delayed 20 mg PO DAILY 10/17/19 12/16/23 release gemfibrozil 600 mg tablet 600 mg PO BID 02/04/21 12/16/23 icosapent ethyl 1 gram capsule 2 g PO BID 02/04/21 12/16/23 (Vascepa) insulin degludec 100 unit/mL 15 unit SUBCUT DAILY 04/10/21 12/16/23 subcutaneous solution (Tresiba U-100 Insulin) Previous Rx's Medication Instructions Recorded hydrocodone 5 mg-acetaminophen 325 1 tab PO .5times a day PRN pain 30 04/10/21 mg tablet days #150 tabs Diabetic Shoes with 3 sets of #1 ea 09/30/21 insoles Diabetic Shoes with 3 sets of #1 ea 11/05/21 insoles AFO to right #1 ea 12/14/22 oxycodone 5 mg tablet 5 mg PO Q6H PRN pain 7 days #28 10/05/23 tabs Shoulder Immobilizer #1 ea 10/06/23 ketorolac 10 mg tablet 10 mg PO Q6H PRN pain #20 tabs 11/05/23 Allergies Allergy/AdvReac Type Severity Reaction Status Date / Time codeine AdvReac Unknown ADR-Nausea Verified 12/16/23 14:52 morphine AdvReac Unknown ADR/ALGY-Fl Verified 12/16/23 14:52 ushing PFSH ED 2 PFSH: Medical History Type 2 diabetes mellitus Hypertension Cigarette smoker motivated to quit Chronic low back pain Shoulder impingement Abdominal hernia Acute right ankle pain Acute bilateral low back pain Acute pain of left shoulder Encounter for long-term opiate analgesic use Back pain with history of spinal surgery Opioid contract exists Lumbar back pain Smoker Surgical History Hx of shoulder surgery History of carpal tunnel surgery Hx of abdominal surgery Hx of oral surgery H/O sinus surgery History of lumbar surgery History of ankle surgery Family History Other Aneurysm Cancer Social History Smoking and tobacco/nicotine status: current every day tobacco/nicotine user cigarettes Packs smoked per day: 1 Alcohol intake: current Alcohol intake frequency: few times a month Substance/Drug Use: unknown Physical Exam 2 Const: COMMON NORMALS: no acute distress, patient oriented x3 and healthy appearing HENMT: COMMON NORMALS: normocephalic and atraumatic HEAD & SCALP: n ormocephalic and atraumatic Eye: COMMON NORMALS: conjunctivae normal CONJUNCTIVA: Yes conjunctivae normal Neck/C-Spine: COMMON NORMALS: full ROM and supple Chest: COMMONS NORMALS: normal inspection of the chest Resp: COMMON NORMALS: normal respiratory effort, No retractions, No use of accessory muscles and clear to auscultation bilaterally AUSCULTATION: clear to auscultation bilaterally Cardio: COMMON NORMALS: regular rate, regular rhythm and No murmurs present (Cardio) RATE: regular rate RHYTHM: regular rhythm GI: COMMON NORMALS: Normal to inspection, nondistended, normoactive bowel sounds present, Soft to palpation, non-tender and no masses PALPATION: Yes Soft to palpation Back/Pelvis: OTHER: Paraspinal tenderness to upper back Extremity: COMMON NORMALS: normal to inspection and full ROM Neuro: COMMON NORMALS: patient oriented x3, moves all extremities and no focal motor deficits Psych: COMMON NORMALS: mental status grossly normal, Normal thought process present and cooperative THOUGHT PROCESS: Normal thought process present Skin: COMMON NORMALS: no rashes or lesions noted and no wounds GENERAL SKIN EXAM: no rashes or lesions noted Course 2 Vital Signs: Vital signs: Vital Signs Temperature 99.5 F 01/30/24 14:42 Pulse Rate 121 H 01/30/24 14:42 Respiratory Rate 16 01/30/24 14:42 Blood Pressure 126/95 01/30/24 14:42 Pulse Oximetry 92 01/30/24 14:42 Oxygen Delivery Me thod Room Air 01/30/24 14:42 MDM - Chest Pain Medical Decision Making Patient presents here with chest pain his initial troponin here is elevated CT showed no signs of pulmonary embolism I spoke to hospitalist did consult cardiology as well will admit to cardiac stepdown. EKG showed no ST elevation Medical Records I reviewed the patient's medical records. Lab Data I reviewed the patient's lab results. 01/30/24 14:51 01/30/24 14:51 Radiology Impressions Chest X-Ray 01/30/24 14:36 IMPRESSION: No acute findings by plain radiographs. Please see separately dictated CT angiogram of the chest report same day. Chest CTA 01/30/24 14:43 IMPRESSION: 1. No evidence of PE and the thoracic aorta is unremarkable. 2. Mural thickening of the bilateral lower lobe bronchioles and multifocal areas of mucous plugging. Consider bronchitis. 3. Slightly prominent interstitium in the lower lung zones. Consider a component of interstitial edema. 4. Suspected hepatic cirrhosis and splenomegaly. 5. Complex cystic mass right kidney. Consider nonemergent renal ultrasound to further evaluate. 6. Extensive calcified coronary artery disease. Laboratory Results WBC 7.90 10^3/uL (3.29-11.43) 01/30/24 14:51 RBC 5.16 10^6/uL (3.85-5.65) 01/30/24 14:51 Hgb 13.20 g/dL (11.27-16.99) 01/30/24 14:51 Hct 40.7 % (37-53) 01/30/24 14:51 MCV 78.9 fl (82-101) L 01/30/24 14:51 MCH 25.6 pg (27-33) L 01/30/24 14:51 MCHC 32.4 g/dL (30-55) 01/30/24 14:51 RDW 15.3 % (12.1-15.1) H 01/30/24 14:51 Plt Count 223 10^3/cmm (157-399) 01/30/24 14:51 MPV 10.7 fL (7.4-10.4) H 01/30/24 14:51 Neut % (Auto) 72.2 % 01/30/24 14:51 Lymph % (Auto) 15.2 % 01/30/24 14:51 [place] % (Auto) 10.8 % 01/30/24 14:51 Eos % (Auto) 1.1 % 01/30/24 14:51 Baso % (Auto) 0.4 % 01/30/24 14:51 Neut # (Auto) 5.71 10^3/uL (1.8-7.7) 01/30/24 14:51 Lymph # (Auto) 1.2 10^3/uL (0.8-4.8) 01/30/24 14:51 [place] # (Auto) 0.9 10^3/uL (0.2-0.9) 01/30/24 14:51 Eos # (Auto) 0.1 10^3/uL (0.0-0.8) 01/30/24 14:51 Baso # (Auto) 0.0 10^3/uL (0.0-0.1) 01/30/24 14:51 Nucleated RBC % (auto) 0 % 01/30/24 14:51 Nucleated RBCs # 0.0 /100WBC 01/30/24 14:51 PT 15.60 SECONDS (12.1-14.9) H 01/30/24 14:51 INR 1.20 (0.8-1.2) 01/30/24 14:51 Sodium 139 mmol/L (136-145) 01/30/24 14:51 Potassium 4.2 mmol/L (3.5-5.1) 01/30/24 14:51 Chloride 104 mmol/L (98-107) 01/30/24 14:51 Carbon Dioxide 22 mmol/L (22-29) 01/30/24 14:51 Anion Gap 17.2 (5-19) 01/30/24 14:51 BUN 20 mg/dL (8-23) 01/30/24 14:51 Creatinine 1.4 mg/dL (0.7-1.2) H 01/30/24 14:51 GFR Calculation 51.5 mL/min (90-130) L 01/30/24 14:51 Glucose 243 mg/dL (65-115) H 01/30/24 14:51 Calculated Osmolality 299 mOsm/kg (285-295) H 01/30/24 14:51 Calcium 9.2 mg/dL (8.5-10.5) 01/30/24 14:51 Total Bilirubin 0.4 mg/dL (0.15-1.2) 01/30/24 14:51 AST 30 U/L (0-40) 01/30/24 14:51 ALT 19 U/L (0-41) 01/30/24 14:51 Alkaline Phosphatase 104 U/L (40-130) 01/30/24 14:51 Troponin T Baseline 522 ng/L (0-15) H* 01/30/24 14:51 NT-Pro-B Natriuret Pep 6074 pg/mL (0-125) H 01/30/24 14:51 Total Protein 6.4 g/dL (6.6-8.7) L 01/30/24 14:51 Albumin 4.4 g/dL (3.5-5.2) 01/30/24 14:51 Globulin 2.0 g/dL (1.3-4.6) 01/30/24 14:51 Lipase 43 U/L (13-60) 01/30/24 14:51 All radiology interpretation(s) finalized by discharge EKG Data EKG 1: I personally reviewed and interpreted this EKG as follows: EKG interpretation date: 01/30/24 EKG interpretation time: 14:35 Interpretation: nsr hr [address] elevation qrs 101 Discharge Plan Discharge Patient Disposition: Admitted As Inpatient Clinical Impression: Non-ST elevation ME (NSTEMI) Condition: Stable Prescriptions: No Action hydrochlorothiazide 12.5 mg tablet 12.5 mg PO DAILY pantoprazole 20 mg tablet,delayed release (DR/EC) 20 mg PO DAILY gemfibrozil 600 mg tablet 600 mg PO BID icosapent ethyl [Vascepa] 1 gram capsule 2 g PO BID lisinopril 20 mg tablet 20 mg PO DAILY hydroxyzine HCl 25 mg tablet 25 mg PO TID PRN (Reason: Anxiety) metformin 1,000 mg tablet 1,000 mg PO BID clopidogrel [Plavix] 75 mg tablet 75 mg PO DAILY Zyrtec 10 mg capsule 10 mg PO DAILY sildenafil PO PRN metoprolol tartrate 50 mg tablet 25 mg PO QPM glimepiride 4 mg tablet 4 mg PO BID Tresiba U-100 Insulin 100 unit/mL solution 15 unit SUBCUT DAILY hydrocodone-acetaminophen 5-325 mg tablet 1 tab PO .5times a day PRN (Reason: pain) 30 Days Qty: 150 0RF (DME) Diabetic Shoes with 3 sets of insoles See Rx Instructions .Route .MEDSUPPLY Qty: 1 0RF Rx Instructions: As directed by [facility] ([facility]) Diabetic Shoes with 3 sets of insoles See Rx Instructions .Route .MEDSUPPLY Qty: 1 0RF Rx Instructions: As directed by HOME ([facility] [place] Shoulder Immobilizer See Rx Instructions .Route .MEDSUPPLY Qty: 1 0RF Rx Instructions: As directed (DME) AFO to right See Rx Instructions .Route .MEDSUPPLY Qty: 1 0RF Rx Instructions: As directed by the brigid ruiz oxycodone 5 mg tablet 5 mg PO Q6H PRN (Reason: pain) 7 Days Qty: 28 0RF ketorolac 10 mg tablet 10 mg PO Q6H PRN (Reason: pain) Qty: 20 0RF Rx Instructions: maximum total duration of 5 days from all oral, intranasal, or parenteral formulations Coding Level of Care Code ED Acute Care Assistant for Oren Small
[2024-01-30] MEDS: ondansetron 2 mg/ML SDV 2 mL 4 MG IVP (14:53)
[2024-01-30] MEDS: aspirin 81 mg Chew Tablet 324 MG PO (14:53)
[2024-01-30] MEDS: HYDROmorphone 1 mg/mL INJ 1 mL 0.5 MG IVP (14:53)
[2024-01-30 14:58] LABS: Basophils % 0.4 %; Eosinophils # 0.1 10^3/uL (0.0-0.8); Eosinophils % 1.1 %; Hematocrit 40.7 % (37-53); Lymphocytes # 1.2 10^3/uL (0.8-4.8); Lymphocytes % 15.2 %; Mean Corpuscular HGB Conc 32.4 g/dL (30-55); Mean Corpuscular Hemoglobin 25.6 pg (27-33); Mean Corpuscular Volume 78.9 fl (82-101); Mean Platelet Volume 10.7 fL (7.4-10.4); Monocytes # 0.9 10^3/uL (0.2-0.9); Monocytes % 10.8 %; Neutrophils # 5.71 10^3/uL (1.8-7.7); Neutrophils % 72.2 %; Nucleated Red Blood Cells % 0 %; Platelet Count 223 10^3/cmm (157-399); Red Blood Count 5.16 10^6/uL (3.85-5.65); Red Cell Distribution Width 15.3 % (12.1-15.1)
[2024-01-30 15:21] LABS: Troponin(5th) Baseline 522 ng/L (0-15)
[2024-01-30 15:23] LABS: Alanine Aminotransferase 19 U/L (0-41); Albumin Level 4.4 g/dL (3.5-5.2); Alkaline Phosphatase 104 U/L (40-130); Anion Gap 17.2 (5-19); Aspartate Amino Transferase 30 U/L (0-40); Blood Urea Nitrogen 20 mg/dL (8-23); Calcium 9.2 mg/dL (8.5-10.5); Carbon Dioxide 22 mmol/L (22-29); Chloride 104 mmol/L (98-107); Creatinine Clr Calc Pharmacy 66.0374; Glomerular Filtration Rate 51.5 mL/min (90-130); Glucose 243 mg/dL (65-115); Lipase 43 U/L (13-60); Osmolality Calculated 299 mOsm/kg (285-295); Potassium 4.2 mmol/L (3.5-5.1); Sodium 139 mmol/L (136-145); Total Bilirubin 0.4 mg/dL (0.15-1.2); Total Protein 6.4 g/dL (6.6-8.7)
--- NOTE | 2024-01-30 15:26 | PC.NURSE ---
BASELINE TROP 522 NOTED TO PROVIDER, PROVIDER ORDERED REPEAT EKG.
[2024-01-30] MEDS: iohexol 350 mg/mL 500 mL Btl (per mL) IV (15:37)
[2024-01-30 15:45] LABS: NT Pro B Type Natriuretic Pept 6074 pg/mL (0-125)
--- NOTE | 2024-01-30 16:19 | P.HP_ITS ---
Providers/Chief Complaint 2 Chief Complaint: chest pain History of Present Illness Radu Shetty is a 59 year old male with past medical history of hypertension, type 2 diabetes mellitus, recent shoulder surgery, central obesity presents to the ER because of chest pain. As per the patient he attributed his pain to recent surgery on his shoulder which he had around a month and a half ago. Usually he is pain would start in the back and radiate to center of his chest in front but pain got worse since Wednesday. Today is Wednesday. Pain associated with mild difficulty in breathing, not associated with diaphoresis or nausea. Difficulty breathing would go away once the pain settles down. He has been using pain medications which would usually take care of his pain but has not helped him in last 24 hours. On examination patient is restless, tachycardic with heart rate in 120s, saturating 88% on room air. Review of Systems 2 General: Reports: 10 or more systems reviewed and unremarkable except in HPI and below Const: Denies: fever(s), chills, body aches, change in appetite, change in weight, malaise, night sweats, diaphoresis, change in sleep pattern, daytime sleepiness or snoring Eyes: Denies: change in vision, blurry vision, photophobia, eye discomfort or eye discharge ENMT: Denies: throat pain, enlarged tonsils, hoarseness, mouth pain, oral sores, dry mouth, tinnitus, nasal congestion or post nasal drip Card: Denies: chest pain, palpitations, irregular heart rhythm, edema, swelling of feet/ankles, lightheadedness, syncope, pre-syncope, dyspnea on exertion, orthopnea, leg pain with exertion or acrocyanosis Resp: Denies: dyspnea, productive cough, non-productive cough, wheezing, stridor, pain on inspiration, change in phlegm color, hemoptysis or chest congestion GI: Denies: abdominal pain, nausea, vomiting, hematemesis, coffee ground emesis, dysphagia, heartburn, diarrhea, constipation, bloating, GI cramping, change in bowel habits, pain on defecation, hematochezia or melena : Denies: flank pain, difficulty urinating, dysuria, urinary frequency, urinary urgency, urinary hesitancy, urinary dribbling, difficulty starting urination, change in urine stream, nocturia or hematuria Musc: Denies: neck pain, back pain, extremity pain, joint pain, joint swelling, joint redness, joint stiffness or limited range of motion Neuro: Denies: headache(s), numbness in extremities, weakness in extremities, sensory changes, lack of coordination, difficulty walking, frequent falls, dizziness, vertigo, confusion, Slurred speech present, difficulty communicating thoughts or seizure-like activity Psych: Denies: anxiety, depression, mood swings, panic attacks, hopelessness or irritability Endo: Denies: polyuria, polydipsia, tired all the time, cold intolerance, excessive sweating, flushing or heat intolerance Ad/Lymph: Denies: easy bruising or easy bleeding All/Imm: Denies: tongue swelling, facial swelling or acute wheezing Medications/Allergies Home Medications Medication Instructions Recorded Confirmed Last Taken Type cetirizine 10 mg capsule (Zyrtec) 10 mg PO DAILY 05/08/19 12/16/23 09/22/23 History clopidogrel 75 mg tablet (Plavix) 75 mg PO DAILY 05/08/19 12/16/23 09/18/23 History glimepiride 4 mg tablet 4 mg PO BID 05/08/19 12/16/23 09/22/23 History hydroxyzine HCl 25 mg tablet 25 mg PO TID PRN Anxiety 05/08/19 12/16/23 09/23/23 04:00 History lisinopril 20 mg tablet 20 mg PO DAILY 05/08/19 12/16/23 09/22/23 History metformin 1,000 mg tablet 1,000 mg PO BID 05/08/19 12/16/23 09/22/23 History metoprolol tartrate 50 mg tablet 25 mg PO QPM 05/08/19 12/16/23 09/21/23 History sildenafil PO PRN 05/08/19 12/16/23 Unknown History hydrochlorothiazide 12.5 mg tablet 12.5 mg PO DAILY 06/21/19 12/16/23 09/22/23 History pantoprazole 20 mg tablet,delayed 20 mg PO DAILY 10/17/19 12/16/23 09/22/23 History release gemfibrozil 600 mg tablet 600 mg PO BID 02/04/21 12/16/23 09/22/23 History icosapent ethyl 1 gram capsule 2 g PO BID 02/04/21 12/16/23 09/22/23 History (Vascepa) hydrocodone 5 mg-acetaminophen 325 1 tab PO .5times a day PRN pain 30 04/10/21 12/16/23 09/23/23 04:00 Rx mg tablet days #150 tabs insulin degludec 100 unit/mL 15 unit SUBCUT DAILY 04/10/21 12/16/23 Unknown History subcutaneous solution (Tresiba U-100 Insulin) Diabetic Shoes with 3 sets of #1 ea 09/30/21 12/16/23 Unknown Rx insoles Diabetic Shoes with 3 sets of #1 ea 11/05/21 12/16/23 Unknown Rx insoles AFO to right #1 ea 12/14/22 12/16/23 Unknown Rx oxycodone 5 mg tablet 5 mg PO Q6H PRN pain 7 days #28 10/05/23 12/16/23 Unknown Rx tabs Shoulder Immobilizer #1 ea 10/06/23 12/16/23 Unknown Rx ketorolac 10 mg tablet 10 mg PO Q6H PRN pain #20 tabs 11/05/23 12/16/23 Unknown Rx Allergies Allergy/AdvReac Type Severity Reaction Status Date / Time codeine AdvReac Unknown ADR-Nausea Verified 12/16/23 14:52 morphine AdvReac Unknown ADR/ALGY-Fl Verified 12/16/23 14:52 ushing PFSH Acute 2 PFSH: Medical History Type 2 diabetes mellitus Hypertension Cigarette smoker motivated to quit Chronic low back pain Shoulder impingement Abdominal hernia Acute right ankle pain Acute bilateral low back pain Acute pain of left shoulder Encounter for long-term opiate analgesic use Back pain with history of spinal surgery Opioid contract exists Lumbar back pain Smoker Surgical History Hx of shoulder surgery History of carpal tunnel surgery Hx of abdominal surgery Hx of oral surgery H/O sinus surgery History of lumbar surgery History of ankle surgery Family History Other Aneurysm Cancer Social History Smoking and tobacco/nicotine status: current every day tobacco/nicotine user cigarettes Packs smoked per day: 1 Alcohol intake: current Alcohol intake frequency: few times a month Substance/Drug Use: unknown Vitals/I&O/Wt Last Vital Signs Temp 99.5 F 01/30/24 14:42 Pulse 121 H 01/30/24 14:42 Resp 16 01/30/24 14:42 BP 126/95 01/30/24 14:42 Pulse Ox 92 01/30/24 14:42 O2 Del Method Room Air 01/30/24 14:42 Weight last 48 hrs Weight 101.151 kg Physical Exam 2 Narrative: General: No acute distress, AO x3, Restless, sick appearing, 88% on room air HEENT: PERRLA, pupils bilaterally equal and reactive Chest: Bilateral bronchial breath sounds all over lung [place] with occasional rhonchi and crackles all over lung [place] right more than left CVS: S1-S2 regular, no murmurs, no tachycardia, no gallops, no rubs Abdomen: Soft, nontender, no organomegaly, bowel sounds present, obese Neuro: No focal deficits, no facial deformity, AO x3, power 5/5 in all limbs Data 01/30/24 14:51 01/30/24 14:51 A&P Assessment and plan (1) NSTEMI (non-ST elevation myocardial infarction): Chest pain in setting of non-ST elevation ID. Baseline troponin 500. Aspirin 325 mg stat followed by 81 mg daily, continue with home dose of Plavix. Patient is currently tachycardic. Give 5 mg of IV metoprolol followed by 25 mg twice daily. Will uptitrate as for goal blood pressures. Continue with heparin drip. Stat echocardiogram as per cardiology recommendations. Cardiology has been consulted. (2) Acute hypoxic respiratory failure: Most likely in setting of congestive heart failure with concerns for bronchitis along with mild mucous plugging as seen on CTA. PE ruled out. Oxygen supplementation keeping saturation over 92%. Pulmicort twice daily, ipratropium, Xopenex every 6 hour. (3) Bronchitis: Check respiratory viral panel, bacterial antigen, sputum culture. Bacterial pneumonia less likely. Empirically for now start on treatment for community-acquired pneumonia with oral azithromycin 5 mg daily along with IV ceftriaxone 1 g daily. Check blood cultures. (4) CHF (congestive heart failure): Stat echocardiogram. IV Lasix 40 mg one-time. Strict input output charting, daily weights. For suction up to 1500 cc. Patient requesting no Sarkar for now. (5) Mucus plugging of bronchi: Aggressive pulmonary toilet with I-S and Acapella. Start on Mucomyst every 4 hour. (6) AMEENA (acute kidney injury): Baseline creatinine normal. Presenting renal function of 1.4. Could be in setting of CHF. Patient did have a CTA in the ER on presentation. Medical reconciliation done for nephrotoxic drugs. Hold off on home dose of metformin, lisinopril, glimepiride. Check renal ultrasound. Urinalysis, urine creatinine and urine lites. Monitor BMP daily. Lasix as above. (7) Hypertension: Goal blood pressure less than 140/90 mmHg. Continue with metoprolol as above. Uptitrate as for goal blood pressures. (8) Type 2 diabetes mellitus: Check A1c. Takes OHA's along with Lantus 15 units nightly. Sliding scale moderate dose protocol, Lantus 10 units nightly. (9) Tachycardia: (10) Chest pain: Plan Anxiety: Patient would like to continue with hydroxyzine for now. Has admitted and taking Xanax. Recent shoulder surgery: Continue with home hydrocodone at home schedule. Full code Carb consistent cardiac diet, n.p.o. as per cardiology schedule Protonix OPD prophylaxis Heparin drip will be sufficient for DVT prophylaxis Attestations 2 Medical Necessity Statement*: Admission for more than 2 midnights for management chest pain in setting of non- ST elevation ID, hypoxia in setting of bronchitis, mucous plug along with CHF Diagnoses NSTEMI (non-ST elevation myocardial infarction) I21.4 Acute hypoxic respiratory failure J96.01 Bronchitis J40 CHF (congestive heart failure) I50.9 Mucus plugging of bronchi T17.500A AMEENA (acute kidney injury) N17.9 Hypertension I10 Type 2 diabetes mellitus E11.9 Tachycardia R00.0 Chest pain R07.9
[2024-01-30] MEDS: cefTRIAXone 1,000 mg SDV 1000 MG IVP (16:29)
[2024-01-30] MEDS: FUROsemide 10 mg/mL SDV 4mL 40 MG IVP (16:32)
[2024-01-30] MEDS: heparin drip 25,000 UNIT/500 ML PREMIX 28.32 UNIT IV (16:35)
--- NOTE | 2024-01-30 16:36 | ECG_ITS ---
[facility]24[facility]30 Pat Name: Radu Shetty Department: Room: Gender: Male Bi Tester: : 1965 Requested By: Yariel Zuñiga Order Number: [id number] Amelia MD: Vielka Sena M.D. Measurements Intervals Britton Rate: 110 P: 32 RI: 125 QRS: 14 QRSD: 104 T: 59 QT: 334 QTc: 452 Interpretive Statements SINUS TACHYCARDIA MODERATE ST DEPRESSION [0.05+ mV ST DEPRESSION] Compared to ECG 01/30/2024 14:35:21 No significant changes Electronically Signed On 01-30-2024 20:42:15 FRAME BUILDER by Vielka Sena M.D. [email or web address]
[2024-01-30] MEDS: heparin 5,000 unit/mL INJ 1 mL IVP (16:37)
[2024-01-30] MEDS: azithromycin 250 mg Tablet 500 MG PO (16:39)
[2024-01-30] MEDS: metoprolol tartrate 1 mg/1 mL SDV 5 mL 5 MG IVP (16:41)
[2024-01-30 16:45] LABS: Procalcitonin 0.06 ng/mL (0-0.5); Thyroid Stimulating Hormone 1.38 uIU/mL (0.27-4.20)
--- NOTE | 2024-01-30 16:52 | USCV_ITS ---
Radu Shetty Age: 59 Gender: M : 1965 Exam Date: 01/30/2024 17:38 Ordering Phys: Singh Saldivar MD Technologist: Jignesh Lewis [place] [facility] [place]: nstemi BP: 118 / 81 HR: 100 Rhythm: Sinus Technical Quality: Adequate MEASUREMENTS (Male / Female) Normal Values 2D ECHO LVOT Diameter 2.4 cm LV Ejection Fraction MOD 4C 32.6 % LV Ejection Fraction MOD 2C 32.7 % LV Ejection Fraction 2C AL 33.3 % LA Diameter 4.0 cm RA Systolic Volume 4C AL 40.5 ml RA Systolic Volume 4C MOD 40.0 ml LA Sys Volume AL 58.7 cm cubed LA Sys Volume Index AL 25.9 cm cubed/m squared Aorta at Sinotubular Diameter 2.3 cm IVC Diameter 2.1 cm M-MODE LA Ao Ratio MM 1.1 AV Cusp Separation MM 1.8 cm DOPPLER AV Peak Velocity 115.0 cm/s LVOT Peak Velocity 64.0 cm/s AV Area Cont Eq vti 2.5 cm squared AV Area Cont Eq pk 2.4 cm squared MV Peak Velocity 88.0 cm/s MV Area PHT 11.6 cm squared Mitral E to A Ratio 0.8 TV Peak Velocity 152.0 cm/s TR Peak Velocity 168.0 cm/s TR Peak Gradient 11.3 mmHg TR Mean Velocity 135.0 cm/s TR Mean Gradient 8.1 mmHg TR Velocity Time Integral 38.9 cm PV Peak Velocity 92.0 cm/s RV Ejection Time 0.3 s FINDINGS Left Ventricle Moderate diffuse hypokinesia of the left ventricule with an ejection fraction of 33%. Right Ventricle Normal right ventricular size and systolic function. Right Atrium Normal right atrial size. Left Atrium Mildly increased left atrial size. Mitral Valve Moderate mitral annular calcification. Aortic Valve Thickened aortic valve. Tricuspid Valve Trace tricuspid valve regurgitation. Pulmonic Valve Pulmonic valve not well visualized. Pericardium No significant pericardial effusion. Aorta Normal aortic annulus size. IVC Normal inferior vena cava. CONCLUSIONS Moderate diffuse hypokinesia of the left ventricule with an ejection fraction of 33%. Mildly increased left atrial size. Moderate mitral annular calcification. Thickened aortic valve. Trace tricuspid valve regurgitation. There is no pericardial effusion. There are no intracardiac masses. No similar previous studies are available for comparison Dr Vielka Sena MD FACC (Electronically Signed) Final Date: 30 January 2024 19:09 S
[2024-01-30 17:17] LABS: Iron 24 ug/dL (59-158); Percent Saturation 6.7 % (20-50); Total Iron Binding Capacity 353 mcg/dl; Unsaturated Iron Binding 329 ug/dL (112-347)
[2024-01-30 17:33] LABS: Vitamin B12 340 pg/mL (232-1245)
[2024-01-30 17:45] LABS: Glucose Point of Care 244 mg/dL (70-110)
[2024-01-30 17:45] LABS: Bilirubin Urine Negative (Negative); Blood Urine Negative (Negative); Glucose Urine UA Negative (Normal); Ketones Urine Negative (Negative); Leukocyte Esterase Urine Negative (Negative); Nitrate Urine Negative (Negative); Protein Urine 1+ (Negative); Specific Gravity, Urine 1.022 (1.005-1.030); Urine Appearance Clear (CLEAR); Urine Color Yellow (Yellow); Urobilinogen Urine 0.2 mg/dL (Negative)
[2024-01-30 17:50] LABS: Add Urine Microscopic? YES; Bacteria Urine None Seen /hpf; RBC Urine 0-2 /hpf (0-2); Squamous Epithelial Cell Urine 0-5 /hpf (0-5); WBC Urine 0-5 /hpf (0-5)
--- NOTE | 2024-01-30 17:50 | P.CONIM_ITS ---
Providers/Reason For Consult 2 Consulting Physician/Specialty*: NICCI Sena MD/cardiology Reason for Consult*: Patient with chest pain and elevated troponin T Requesting Physician: Dr. Saldivar Attending Physician: Singh Saldivar MD History of Present Illness History of Present Illness Radu Shetty is a 59 year old male with a history of hypertension, type 2 diabetes and dyslipidemia, he is present with complaints of recurrent episodes of prolonged chest pain since yesterday. He was found to have elevated troponin T in the emergency room. He is admitted to the hospital for further evaluation and management. This patient apparently has been in his baseline state of health up until yesterday morning when he started having pain between the shoulder blades and also in the anterior chest along with left shoulder pain. He had a shoulder surgery in September of this year. Since then, he been having episodes of chest pain. Usually these pains goes away by itself or when he get up and move around. Yesterday the pain was more severe and lasting longer. Each of these episodes may last anywhere from few minutes to few hours. He has no associated nausea or vomiting. No sweating. He may have had some shortness of breath. No palpitation, dizziness or syncopal episodes. No other associated or radiation of pain. He has a history of hypertension, type 2 diabetes and dyslipidemia for the last more than 15 years. He has been taking his medications as prescribed. The latest hemoglobin A1c was 7.3?. He has no previous history for any coronary disease, myocardial infarction or congestive heart failure. He has a history of TIA many years ago. He also has a questionable history of peripheral artery disease. He was placed on Plavix for this. He also has been taking baby aspirin as prescribed by neurologist in [place], when he had the stroke. Many years ago, he had a stress test as part of his job requirement. According to him, the test was okay. No significant family history for premature atherosclerotic heart diseas. He has been smoking a pack a day for the last more than 40 years. He is trying to quit. No alcohol abuse or any other substance abuse. Review of Systems 2 Narrative: CONSTITUTIONAL: No fever or chills. EYES: No blurring of vision or other visual disturbances lately. ENT: No hoarseness of voice, auditory disturbances or sore throat. CARDIOVASCULAR: As mentioned above. RESPIRATORY: No significant cough. GASTROINTESTINAL: No hematemesis or melena. GENITOURINARY: No dysuria or hematuria. INTEGUMENTARY: No skin significant skin rashes NEURO: No transient ischemic attacks or amaurosis. PSYCHIATRIC: No history of psychosis or major depression. HEMATOLOGIC: No bleeding disorders or significant anemia. ENDOCRINE: History of type 2 diabetes as mentioned above MUSCULOSKELETAL: Chronic back pains and shoulder pains ALLERGY/IMMUNOLOGY: As mentioned above. Medications/Allergies Home Medications Medication Instructions Recorded Confirmed Last Taken Type cetirizine 10 mg capsule (Zyrtec) 10 mg PO DAILY 05/08/19 12/16/23 09/22/23 History clopidogrel 75 mg tablet (Plavix) 75 mg PO DAILY 05/08/19 12/16/23 09/18/23 History glimepiride 4 mg tablet 4 mg PO BID 05/08/19 12/16/23 09/22/23 History hydroxyzine HCl 25 mg tablet 25 mg PO TID PRN Anxiety 05/08/19 12/16/23 09/23/23 04:00 History lisinopril 20 mg tablet 20 mg PO DAILY 05/08/19 12/16/23 09/22/23 History metformin 1,000 mg tablet 1,000 mg PO BID 05/08/19 12/16/23 09/22/23 History metoprolol tartrate 50 mg tablet 25 mg PO QPM 05/08/19 12/16/23 09/21/23 History sildenafil PO PRN 05/08/19 12/16/23 Unknown History hydrochlorothiazide 12.5 mg tablet 12.5 mg PO DAILY 06/21/19 12/16/23 09/22/23 History pantoprazole 20 mg tablet,delayed 20 mg PO DAILY 10/17/19 12/16/23 09/22/23 History release gemfibrozil 600 mg tablet 600 mg PO BID 02/04/21 12/16/23 09/22/23 History icosapent ethyl 1 gram capsule 2 g PO BID 02/04/21 12/16/23 09/22/23 History (Vascepa) hydrocodone 5 mg-acetaminophen 325 1 tab PO .5times a day PRN pain 30 04/10/21 12/16/23 09/23/23 04:00 Rx mg tablet days #150 tabs insulin degludec 100 unit/mL 15 unit SUBCUT DAILY 04/10/21 12/16/23 Unknown History subcutaneous solution (Tresiba U-100 Insulin) Diabetic Shoes with 3 sets of #1 ea 09/30/21 12/16/23 Unknown Rx insoles Diabetic Shoes with 3 sets of #1 ea 11/05/21 12/16/23 Unknown Rx insoles AFO to right #1 ea 12/14/22 12/16/23 Unknown Rx oxycodone 5 mg tablet 5 mg PO Q6H PRN pain 7 days #28 10/05/23 12/16/23 Unknown Rx tabs Shoulder Immobilizer #1 ea 10/06/23 12/16/23 Unknown Rx ketorolac 10 mg tablet 10 mg PO Q6H PRN pain #20 tabs 11/05/23 12/16/23 Unknown Rx Allergies Allergy/AdvReac Type Severity Reaction Status Date / Time codeine AdvReac Unknown ADR-Nausea Verified 12/16/23 14:52 morphine AdvReac Unknown ADR/ALGY-Fl Verified 12/16/23 14:52 ushing Current Medications Generic Name Dose Route Start Last Admin Trade Name Freq PRN Reason Stop Dose Admin Azithromycin 500 mg 01/30/24 16:25 01/30/24 16:39 Azithromycin 250 Mg Tablet PO 500 mg DAILY [facility] Administration Protocol Ceftriaxone Sodium 1,000 mg 01/30/24 16:30 01/30/24 16:29 Ceftriaxone 1,000 Mg Sdv IVP 1,000 mg Q24H ALVARO Administration Protocol Heparin Sodium/Sodium Chloride 25,000 unit in 500 mls @ 0 mls/hr 01/30/24 16:00 01/30/24 16:35 Heparin Drip IV 14 unit/kg/hr CONT ALVARO 28.32 mls/hr Administration Protocol Per Protocol PFSH Acute 2 PFSH: Medical History Type 2 diabetes mellitus Hypertension Cigarette smoker motivated to quit Chronic low back pain Shoulder impingement Abdominal hernia Acute right ankle pain Acute bilateral low back pain Acute pain of left shoulder Encounter for long-term opiate analgesic use Back pain with history of spinal surgery Opioid contract exists Lumbar back pain Smoker Surgical History Hx of shoulder surgery History of carpal tunnel surgery Hx of abdominal surgery Hx of oral surgery H/O sinus surgery History of lumbar surgery History of ankle surgery Family History Other Aneurysm Cancer Social History Smoking and tobacco/nicotine status: current every day tobacco/nicotine user cigarettes Packs smoked per day: 1 Alcohol intake: current Alcohol intake frequency: few times a month Substance/Drug Use: unknown Vitals/I&O/Wt Last Vital Signs Temp 99.5 F 01/30/24 14:42 Pulse 106 H 01/30/24 16:50 Resp 17 01/30/24 16:50 BP 118/81 01/30/24 16:50 Pulse Ox 90 01/30/24 16:50 O2 Del Method Room Air 01/30/24 14:42 Weight last 48 hrs Weight 223 lb Physical Exam 2 Narrative: GENERAL: The patient is alert and oriented times three. Not in any acute distress. HEENT: No significant pallor, icterus or lymphadenopathy.Oral cavity: There are no mucous membrane lesions. NECK: Trachea appears to be central. No masses noted. No JVD or thyromegaly appreciated. RESPIRATORY: Chest is symmetrical. No intercostals muscle retraction or any accessory muscle activation. There is no chest wall tenderness. Breath sounds are heard bilaterally. No rales or rhonchi heard. No evidence of any consolidation. BREASTS: Deferred. HEART: The heart sounds are normal. No S3 or S4. No significant murmurs. No pericardial rub ABDOMEN: No vessel pulsations or distention. No tenderness. No organomegaly appreciated. Bowel sounds are normally heard. : Deferred. RECTAL: Deferred. LYMPHATIC: No lymphadenopathy noted in the neck. EXTREMITIES: The dorsalis pedis and posterior pulses are weak bilaterally. MUSCULOSKELETAL: No acute joint deformities or swelling SKIN: There are no significant rashes or ecchymosis NEUROPSYCHIATRIC: The patient is alert and oriented x3. Appears to be in a good mood. No tremors or rigidity noted. Data 01/30/24 14:51 01/30/24 14:51 Other Labs: Laboratory Last Values WBC 7.90 10^3/uL (3.29-11.43) 01/30/24 14:51 RBC 5.16 10^6/uL (3.85-5.65) 01/30/24 14:51 Hgb 13.20 g/dL (11.27-16.99) 01/30/24 14:51 Hct 40.7 % (37-53) 01/30/24 14:51 MCV 78.9 fl (82-101) L 01/30/24 14:51 MCH 25.6 pg (27-33) L 01/30/24 14:51 MCHC 32.4 g/dL (30-55) 01/30/24 14:51 RDW 15.3 % (12.1-15.1) H 01/30/24 14:51 Plt Count 223 10^3/cmm (157-399) 01/30/24 14:51 MPV 10.7 fL (7.4-10.4) H 01/30/24 14:51 Neut % (Auto) 72.2 % 01/30/24 14:51 Lymph % (Auto) 15.2 % 01/30/24 14:51 [place] % (Auto) 10.8 % 01/30/24 14:51 Eos % (Auto) 1.1 % 01/30/24 14:51 Baso % (Auto) 0.4 % 01/30/24 14:51 Neut # (Auto) 5.71 10^3/uL (1.8-7.7) 01/30/24 14:51 Lymph # (Auto) 1.2 10^3/uL (0.8-4.8) 01/30/24 14:51 [place] # (Auto) 0.9 10^3/uL (0.2-0.9) 01/30/24 14:51 Eos # (Auto) 0.1 10^3/uL (0.0-0.8) 01/30/24 14:51 Baso # (Auto) 0.0 10^3/uL (0.0-0.1) 01/30/24 14:51 Nucleated RBC % (auto) 0 % 01/30/24 14:51 Nucleated RBCs # 0.0 /100WBC 01/30/24 14:51 PT 15.60 SECONDS (12.1-14.9) H 01/30/24 14:51 INR 1.20 (0.8-1.2) 01/30/24 14:51 Sodium 139 mmol/L (136-145) 01/30/24 14:51 Potassium 4.2 mmol/L (3.5-5.1) 01/30/24 14:51 Chloride 104 mmol/L (98-107) 01/30/24 14:51 Carbon Dioxide 22 mmol/L (22-29) 01/30/24 14:51 Anion Gap 17.2 (5-19) 01/30/24 14:51 BUN 20 mg/dL (8-23) 01/30/24 14:51 Creatinine 1.4 mg/dL (0.7-1.2) H 01/30/24 14:51 GFR Calculation 51.5 mL/min (90-130) L 01/30/24 14:51 Glucose 243 mg/dL (65-115) H 01/30/24 14:51 POC Glucose 244 mg/dL (70-110) H 01/30/24 17:33 Calculated Osmolality 299 mOsm/kg (285-295) H 01/30/24 14:51 Calcium 9.2 mg/dL (8.5-10.5) 01/30/24 14:51 Iron 24 ug/dL (59-158) L 01/30/24 14:51 TIBC 353 mcg/dl 01/30/24 14:51 % Saturation 6.7 % (20-50) L 01/30/24 14:51 Unsat Iron Binding 329 ug/dL (112-347) 01/30/24 14:51 Total Bilirubin 0.4 mg/dL (0.15-1.2) 01/30/24 14:51 AST 30 U/L (0-40) 01/30/24 14:51 ALT 19 U/L (0-41) 01/30/24 14:51 Alkaline Phosphatase 104 U/L (40-130) 01/30/24 14:51 Troponin T Baseline 522 ng/L (0-15) H* 01/30/24 14:51 Troponin T 120 Minute 535.4 ng/L (0-15) H 01/30/24 16:35 Delta Troponin T 13.4 ABS# (0-10) H* 01/30/24 16:35 NT-Pro-B Natriuret Pep 6074 pg/mL (0-125) H 01/30/24 14:51 Total Protein 6.4 g/dL (6.6-8.7) L 01/30/24 14:51 Albumin 4.4 g/dL (3.5-5.2) 01/30/24 14:51 Globulin 2.0 g/dL (1.3-4.6) 01/30/24 14:51 Lipase 43 U/L (13-60) 01/30/24 14:51 Vitamin B12 340 pg/mL (232-1245) 01/30/24 14:51 Procalcitonin 0.06 ng/mL (0-0.5) 01/30/24 14:54 TSH 1.38 uIU/mL (0.27-4.20) 01/30/24 14:54 Urine Color Yellow (Yellow) 01/30/24 17: Urine Appearance Clear (CLEAR) 01/30/24 17: Urine pH 5.0 (5-7) 01/30/24 17: Ur Specific Foster 1.022 (1.005-1.030) 01/30/24 17: Urine Protein 1+ (Negative) A 01/30/24 17: Urine Glucose (UA) Negative (Normal) 01/30/24 17: Urine Ketones Negative (Negative) 01/30/24 17: Urine Blood Negative (Negative) 01/30/24: Urine Nitrate Negative (Negative) 01/30/24: Urine Bilirubin Negative (Negative) 01/30/24 17: Urine Urobilinogen 0.2 mg/dL (Negative) 01/30/24 17: Ur Leukocyte Esterase Negative (Negative) 01/30/24: Urine RBC 0-2 /hpf (0-2) 01/30/24 17: Urine WBC 0-5 /hpf (0-5) 01/30/24 17: Ur Squamous Epith Cells 0-5 /hpf (0-5) 01/30/24 17: Amorphous Sediment Not Reportable 01/30/24: Urine Bacteria None seen /hpf (NONE) 01/30/24: Hyaline Casts 0.40 /lpf 01/30/24 17:29 Ur Random Sodium 76 mmol/L 01/30/24 17: Ur Random Potassium 20 mmol/L 01/30/24 17: Ur Random Chloride 83 mmol/L 01/30/24 17: Urine Creatinine 41 mg/dL (39-259) 01/30/24 17:29 EKG 1: My Interpretation: The EKG showed sinus tachycardia with a rate of [address]-T changes in the high lateral leads, 1, aVL, V5 V6. Poor R wave progression. A&P Assessment and plan (1) Chest pain: Patient is a clinical features are suggestive of an unstable angina. Currently he seems to be stable hemodynamically. EKG changes are suggestive of high lateral wall ischemia. Qualifiers: Chest pain type: unspecified Qualified Code(s): R07.9 - Chest pain, unspecified (2) Non-ST elevation ND (NSTEMI): Patient came with a baseline troponin T in the 500 range. The 2-hour delta is around 12. He also was found to have elevated BNP.. Hemodynamically seems to be stable. (3) Type 2 diabetes mellitus: The recent hemoglobin A1c was 7.3. He need aggressive management of the diabetes. Qualifiers: Diabetes mellitus terminal carman insulin use: without terminal carman use Diabetes mellitus complication status: without complication Qualified Code(s): E11.9 - Type 2 diabetes mellitus without complications (4) AMEENA (acute kidney injury): According the patient, his kidney function was normal in the past. The kidney function need to be closely monitored. (5) Hypertension: The blood pressure is mildly elevated. Need to optimize the antihypertensive medications. Qualifiers: Hypertension type: primary hypertension Qualified Code(s): I10 - Essential (primary) hypertension (6) Dyslipidemia: Patient may continue the statin and dietary modifications. (7) Cigarette smoker motivated to quit: Patient seems to be motivated to quit smoking. Cardiovascular implications were discussed. Plan Other problems are History of CVA with no residual weakness Questionable history of peripheral artery disease The patient be treated with a subcu Lovenox, beta-sid, aspirin, Plavix, statin and other symptomatic measures.. An echocardiogram would be helpful to evaluate LV function and rule out any other pathology. Patient may require a cardiac catheterization to further evaluate his coronary status and decide on further management. Based on the results of the above and patient clinical progress, further recommendations will be made. Thank you for the opportunity to evaluate this patient and make these recommendations Coding Level of Care Code 44482 Diagnoses Chest pain, unspecified type R07.9 Chest pain type: unspecified Non-ST elevation ND (NSTEMI) I21.4 Type 2 diabetes mellitus without complication, without long-term current use of insulin E11.9 Diabetes mellitus terminal carman insulin use: without assisted use Diabetes mellitus complication status: without complication AMEENA (acute kidney injury) N17.9 Primary hypertension I10 Hypertension type: primary hypertension Dyslipidemia E78.5 Cigarette smoker motivated to quit F17.210
[2024-01-30 17:52] LABS: Troponin 5 2HR 535.4 ng/L (0-15); Troponin 5 2HR Delta 13.4 ABS# (0-10)
[2024-01-30 17:56] LABS: Potassium, Radom Urine 20 mmol/L; Urine Creatinine 41 mg/dL (39-259); Urine Random Chloride 83 mmol/L; Urine Random Sodium 76 mmol/L
[2024-01-30] MEDS: gemfibrozil 600 mg Tablet PO (18:37)
[2024-01-30] MEDS: hyDROXYzine 25 mg Capsule PO (18:37)
--- NOTE | 2024-01-30 18:37 | PC.NURSE ---
patient does not want to take morphine.
[2024-01-30] MEDS: pantoprazole 40 mg SDV IVP (18:46)
[2024-01-30 19:03] LABS: Adenovirus Not Detected (NOT DETECT); Chlamydia Pneumoniae Not Detected (NOT DETECT); Coronavirus 229E,HKU1,NL63,OC4 Not Detected (NOT DETECT); Human Metapneumovirus Not Detected (NOT DETECT); Human Rhinovirus/Enterovirus Not Detected (NOT DETECT); Influenza A Not Detected (NOT DETECT); Influenza A H1 Not Detected (NOT DETECT); Influenza A H1-2009 Not Detected (NOT DETECT); Influenza A H3 Not Detected (NOT DETECT); Influenza B Not Detected (NOT DETECT); Mycoplasma Pneumoniae Not Detected (NOT DETECT); Parainfluenza Virus Type 1 Not Detected (NOT DETECT); Parainfluenza Virus Type 2 Not Detected (NOT DETECT); Parainfluenza Virus Type 3 Not Detected (NOT DETECT); Parainfluenza Virus Type 4 Not Detected (NOT DETECT); Respiratory Syncytial Virus A Not Detected (NOT DETECT); Respiratory Syncytial Virus B Not Detected (NOT DETECT); SARS-COV-2 Not Detected (NOT DETECT)
[2024-01-30] MEDS: insulin lispro 100 unit/1 mL SUBCUT (19:08)
[2024-01-30] MEDS: HYDROcodone-acetaminophen 5-325 mg Tablet 1 TAB PO (19:09)
[2024-01-30] MEDS: levalbuterol 0.63 mg/3 mL Neb INHALATION (19:49)
[2024-01-30] MEDS: acetylcysteine 200 mg/mL SDV 4 mL 100 MG INHALATION (19:49)
[2024-01-30] MEDS: ipratropium 0.5 mg/2.5 mL Neb INHALATION (19:49)
[2024-01-30] MEDS: budesonide 0.5 mg/2 mL Neb INHALATION (19:49)
[2024-01-30 21:04] LABS: Glucose Point of Care 255 mg/dL (70-110)
[2024-01-30 21:06] LABS: Troponin 5 6HR 639.2 ng/L (0-15); Troponin 5 6HR Delta 117.2 ng/L (0-12)
[2024-01-30] MEDS: insulin glargine 100 units/1 mL 10 UNIT SUBCUT (21:12)
[2024-01-30] MEDS: atorvastatin 40 mg Tablet PO (21:12)
[2024-01-30] MEDS: metoprolol tartrate 25 mg Tablet PO (21:12)
--- NOTE | 2024-01-30 21:20 | ECG_ITS ---
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 Measurements Intervals [place] Rate: 106 P: 24 [place]: 120 QRS: 33 QRSD: 101 T: 74 QT: 334 QTc: 445 Interpretive Statements SINUS TACHYCARDIA NONSPECIFIC ST & T-WAVE ABNORMALITY ABNORMAL RHYTHM ECG Compared to ECG 01/30/2024 15:23:09 T-wave abnormality now present ST (T wave) deviation no longer present Electronically Signed On 01-31-2024 19:34:41 [employer]OL [employer]RET LATHE SET UP OPERATOR by Vielka Sena M.D. [email or web address]
[2024-01-30 21:27] LABS: Chol HDL Ratio 5.12 mg/dL (1.0-5.00); Cholesterol 133 mg/dL (0-200); HDL Cholesterol 26 mg/dL (60-100); LDL Cholesterol Calculated 66 mg/dL (50-129); LDL HDL Ratio 2.54 RATIO (0.00-3.22); Triglycerides 207 mg/dL (0-150)
[2024-01-30 23:10] LABS: Partial Thromboplastin Time 69.5 SECONDS (23.9-36.7)
[2024-01-31] VITALS (14 sets, daily range): BP systolic 90–121; BP diastolic 54–81; PULSE 87–104; RESP 12–22; TEMP 36.6–37.3; O2SAT 93–98; BMI 32.0
[2024-01-31] MEDS: ipratropium 0.5 mg/2.5 mL Neb INHALATION ×3 (02:43→20:53)
[2024-01-31] MEDS: levalbuterol 0.63 mg/3 mL Neb INHALATION ×3 (02:44→20:53)
[2024-01-31] MEDS: acetylcysteine 200 mg/mL SDV 4 mL 100 MG INHALATION ×3 (02:44→20:52)
[2024-01-31 05:03] LABS: Basophils # 0.1 10^3/uL (0.0-0.1); Basophils % 0.7 %; Eosinophils # 0.1 10^3/uL (0.0-0.8); Eosinophils % 0.9 %; Hematocrit 36.3 % (37-53); Lymphocytes # 1.7 10^3/uL (0.8-4.8); Lymphocytes % 22.6 %; Mean Corpuscular HGB Conc 32.5 g/dL (30-55); Mean Corpuscular Hemoglobin 26.6 pg (27-33); Mean Corpuscular Volume 81.9 fl (82-101); Mean Platelet Volume 11.1 fL (7.4-10.4); Monocytes # 0.9 10^3/uL (0.2-0.9); Monocytes % 11.5 %; Neutrophils # 4.87 10^3/uL (1.8-7.7); Neutrophils % 63.9 %; Nucleated Red Blood Cells % 0 %; Platelet Count 206 10^3/cmm (157-399); Red Blood Count 4.43 10^6/uL (3.85-5.65); Red Cell Distribution Width 15.5 % (12.1-15.1); White Blood Count 7.62 10^3/uL (3.29-11.43)
[2024-01-31 05:28] LABS: Alanine Aminotransferase 16 U/L (0-41); Albumin Level 3.7 g/dL (3.5-5.2); Alkaline Phosphatase 83 U/L (40-130); Anion Gap 16.8 (5-19); Aspartate Amino Transferase 24 U/L (0-40); Blood Urea Nitrogen 24 mg/dL (8-23); Calcium 8.7 mg/dL (8.5-10.5); Carbon Dioxide 24 mmol/L (22-29); Chloride 102 mmol/L (98-107); Cholesterol 120 mg/dL (0-200); Creatinine Clr Calc Pharmacy 57.7827; Globulin 2.6 g/dL (1.3-4.6); Glomerular Filtration Rate 44.2 mL/min (90-130); Glucose 151 mg/dL (65-115); HDL Cholesterol 25 mg/dL (60-100); LDL Cholesterol Calculated 59 mg/dL (50-129); LDL HDL Ratio 2.36 RATIO (0.00-3.22); Magnesium 1.6 mg/dL (1.7-2.3); Osmolality Calculated 295 mOsm/kg (285-295); Phosphorus 4.4 mg/dL (2.5-4.5); Potassium 3.8 mmol/L (3.5-5.1); Sodium 139 mmol/L (136-145); Total Bilirubin 0.3 mg/dL (0.15-1.2); Total Protein 6.3 g/dL (6.6-8.7); Triglycerides 179 mg/dL (0-150)
[2024-01-31 05:33] LABS: Procalcitonin 0.08 ng/mL (0-0.5)
[2024-01-31 05:36] LABS: Estmated Average Glucose 166; Hemoglobin A1C 7.4 % (4.0-6.0)
[2024-01-31 05:43] LABS: Folate Level 5.4 ng/mL (4.5-32.2)
[2024-01-31 06:28] LABS: Glucose Point of Care 167 mg/dL (70-110)
[2024-01-31] MEDS: azithromycin 250 mg Tablet 500 MG PO (07:47)
[2024-01-31] MEDS: gemfibrozil 600 mg Tablet PO ×2 (07:47→18:35)
[2024-01-31] MEDS: hyDROXYzine 25 mg Capsule PO ×3 (07:47→20:17)
[2024-01-31] MEDS: metoprolol tartrate 25 mg Tablet PO ×2 (07:47→20:24)
[2024-01-31] MEDS: clopidogrel 75 mg Tablet PO (07:48)
[2024-01-31] MEDS: insulin lispro 100 unit/1 mL SUBCUT ×2 (08:01→20:17)
[2024-01-31 08:38] LABS: Glucose Point of Care 218 mg/dL (70-110)
--- NOTE | 2024-01-31 08:57 | P.PN_ITS ---
Subjective 2 Subjective: Patient is feeling better. No chest pain. No significant arrhythmias on the monitor. Medications: Medication Review Details: Current Medications Acetaminophen (Acetaminophen 325 Mg Tablet) 650 mg PO Q6H PRN PRN Reason: Mild/Mod Pain Or Temp >/= 101 Hydrocodone Bitart/Acetaminophen (Hydrocodone-Acetaminophen 5-325 Mg Tablet) 1 tab PO 5XD PRN PRN Reason: pain Last Admin: 01/30/24 19:09 Dose: 1 tab Acetylcysteine (Acetylcysteine 200 Mg/Ml Sdv 4 Ml) 100 mg INHALATION Q6H.RESP ALVARO Last Admin: 01/31/24 02:44 Dose: 100 mg Atorvastatin Calcium (Atorvastatin 40 Mg Tablet) 40 mg PO BEDTIME ALVARO Last Admin: 01/30/24 21:12 Dose: 40 mg Azithromycin (Azithromycin 250 Mg Tablet) 500 mg PO DAILY ALVARO; Protocol Last Admin: 01/31/24 07:47 Dose: 500 mg Bisacodyl (Bisacodyl 5 Mg Tablet) 10 mg PO DAILY PRN; Protocol PRN Reason: Constipation (see protocol) Budesonide (Budesonide 0.5 Mg/2 Ml Neb) 0.5 mg INHALATION BID.RESPIRATORY ALVARO Last Admin: 01/30/24 19:49 Dose: 0.5 mg Ceftriaxone Sodium (Ceftriaxone 1,000 Mg Sdv) 1,000 mg IVP Q24H ALVARO; Protocol Last Admin: 01/30/24 16:29 Dose: 1,000 mg Clopidogrel Bisulfate (Clopidogrel 75 Mg Tablet) 75 mg PO DAILY ALVARO Last Admin: 01/31/24 07:48 Dose: 75 mg Gemfibrozil (Gemfibrozil 600 Mg Tablet) 600 mg PO BID ALVARO Last Admin: 01/31/24 07:47 Dose: 600 mg Glucagon (Glucagon 1 Mg/Ml Kit 1 Ml) 1 mg IM ONCE PRN; Protocol PRN Reason: Adult Acute Hypoglycemia Nursing Prot. Heparin Sodium (Porcine) (Heparin 5,000 Unit/Ml Inj 1 Ml) 0 unit IVP PRN PRN; Protocol PRN Reason: Heparin Weight Based Protocol -Subsequent Bolus Hydroxyzine Pamoate (Hydroxyzine 25 Mg Capsule) 25 mg PO QID PRN PRN Reason: ANXIETY Last Admin: 01/31/24 07:47 Dose: 25 mg Heparin Sodium/Sodium Chloride (Heparin Drip) 25,000 unit in 500 mls @ 0 mls/hr IV CONT ALVARO; Protocol Last Titration: 01/31/24 05:36 Dose: 13.84 unit/kg/hr, 28 mls/hr Dextrose (D5w) 500 mls @ 0 mls/hr IV ONCE PRN; Protocol PRN Reason: Adult Acute Hypoglycemia Prot Dextrose (D10w) 125 mls @ 750 mls/hr IV PRN PRN; Protocol PRN Reason: Adult Acute Hypoglycemia Nursing Protocol Dextrose (D10w) 250 mls @ 1,000 mls/hr IV PRN PRN; Protocol PRN Reason: Adult Acute Hypoglycemia Nursing Protocol Magnesium Sulfate (Magnesium Sulfate Premix) 2 gm in 50 mls @ 50 mls/hr IV ONCE ONE Stop: 01/31/24 09:51 Insulin Glargine (Insulin Glargine 100 Units/1 Ml) 10 unit SUBCUT BEDTIME ALVARO Last Admin: 01/30/24 21:12 Dose: 10 unit Insulin Human Lispro (Insulin Lispro 100 Unit/1 Ml) 0 unit SUBCUT WM&BEDTIME ALVARO; Protocol Last Admin: 01/31/24 08:01 Dose: 4 unit Ipratropium [place] (Ipratropium 0.5 Mg/2.5 Ml Neb) 0.5 mg INHALATION Q6H.RESP ALVARO Last Admin: 01/31/24 02:43 Dose: 0.5 mg Lactulose (Lactulose Oral Liq 20 Gm/30 Ml Udc) 10 gm PO DAILY PRN; Protocol PRN Reason: Constipation (see protocol) Levalbuterol HCl (Levalbuterol 0.63 Mg/3 Ml Neb) 0.63 mg INHALATION Q6H.RESP ALVARO Last Admin: 01/31/24 02:44 Dose: 0.63 mg Magnesium Hydroxide (Magnesium Hydroxide 30 Ml Udc) 30 ml PO DAILY PRN; Protocol PRN Reason: Constipation (see protocol) Metoprolol Tartrate (Metoprolol Tartrate 25 Mg Tablet) 25 mg PO BID@0900,2100 [facility] Last Admin: 01/31/24 07:47 Dose: 25 mg Morphine Sulfate (Morphine 4 Mg/Ml Sdv 1 Ml) 2 mg IVP Q4H PRN PRN Reason: SEVERE PAIN Ondansetron HCl (Ondansetron 2 Mg/Ml Sdv 2 Ml) 4 mg IVP Q6H PRN PRN Reason: vomiting, or N/V if npo Pantoprazole Sodium (Pantoprazole 40 Mg Sdv) 40 mg IVP Q24H ALVARO Last Admin: 01/30/24 18:46 Dose: 40 mg Vitals/I&O/Wt Last Vital Signs Temp 98.4 F 01/31/24 07:36 Pulse 97 01/31/24 07:36 Resp 22 H 01/31/24 07:36 BP 121/81 01/31/24 07:36 Pulse Ox 95 01/31/24 07:36 O2 Del Method Room Air 01/31/24 07:36 O2 Flow Rate 1 01/31/24 02:54 01/30/24 01/31/24 01/31/24 22:59 06:59 14:59 Intake Total 1326.589 / 1326.589 Output Total 750 / 750 275 / 1025 Balance -750 / -750 1051.589 / 301.589 Weight last 48 hrs Weight 223 lb Weight 223 lb Weight 223 lb Physical Exam 2 Narrative: GENERAL: The patient is alert and oriented times three. Not in any acute distress. HEENT: No significant pallor, icterus or lymphadenopathy.Oral cavity: There are no mucous membrane lesions. NECK: Trachea appears to be central. No masses noted. No JVD or thyromegaly appreciated. RESPIRATORY: Chest is symmetrical. No intercostals muscle retraction or any accessory muscle activation. There is no chest wall tenderness. Breath sounds are heard bilaterally. No rales or rhonchi heard. No evidence of any consolidation. BREASTS: Deferred. HEART: The heart sounds are normal. No S3 or S4. No significant murmurs. No pericardial rub ABDOMEN: No vessel pulsations or distention. No tenderness. No organomegaly appreciated. Bowel sounds are normally heard. : Deferred. RECTAL: Deferred. LYMPHATIC: No lymphadenopathy noted in the neck. EXTREMITIES: The dorsalis pedis and posterior pulses are weak bilaterally. MUSCULOSKELETAL: No acute joint deformities or swelling SKIN: There are no significant rashes or ecchymosis NEUROPSYCHIATRIC: The patient is alert and oriented x3. Appears to be in a good mood. No tremors or rigidity noted. Data 01/31/24 04:19 01/31/24 04:19 Other Labs: Laboratory Last Values WBC 7.62 10^3/uL (3.29-11.43) 01/31/24 04:19 RBC 4.43 10^6/uL (3.85-5.65) 01/31/24 04:19 Hgb 11.80 g/dL (11.27-16.99) 01/31/24 04:19 Hct 36.3 % (37-53) L 01/31/24 04:19 MCV 81.9 fl (82-101) L 01/31/24 04:19 MCH 26.6 pg (27-33) L 01/31/24 04:19 MCHC 32.5 g/dL (30-55) 01/31/24 04:19 RDW 15.5 % (12.1-15.1) H 01/31/24 04:19 Plt Count 206 10^3/cmm (157-399) 01/31/24 04:19 MPV 11.1 fL (7.4-10.4) H 01/31/24 04:19 Neut % (Auto) 63.9 % 01/31/24 04:19 Lymph % (Auto) 22.6 % 01/31/24 04:19 [place] % (Auto) 11.5 % 01/31/24 04:19 Eos % (Auto) 0.9 % 01/31/24 04:19 Baso % (Auto) 0.7 % 01/31/24 04:19 Neut # (Auto) 4.87 10^3/uL (1.8-7.7) 01/31/24 04:19 Lymph # (Auto) 1.7 10^3/uL (0.8-4.8) 01/31/24 04:19 [place] # (Auto) 0.9 10^3/uL (0.2-0.9) 01/31/24 04:19 Eos # (Auto) 0.1 10^3/uL (0.0-0.8) 01/31/24 04:19 Baso # (Auto) 0.1 10^3/uL (0.0-0.1) 01/31/24 04:19 Nucleated RBC % (auto) 0 % 01/31/24 04:19 Nucleated RBCs # 0.0 /100WBC 01/31/24 04:19 PT 15.60 SECONDS (12.1-14.9) H 01/30/24 14:51 INR 1.20 (0.8-1.2) 01/30/24 14:51 APTT 62.0 SECONDS (23.9-36.7) H 01/31/24 04:19 Sodium 139 mmol/L (136-145) 01/31/24 04:19 Potassium 3.8 mmol/L (3.5-5.1) 01/31/24 04:19 Chloride 102 mmol/L (98-107) 01/31/24 04:19 Carbon Dioxide 24 mmol/L (22-29) 01/31/24 04:19 Anion Gap 16.8 (5-19) 01/31/24 04:19 BUN 24 mg/dL (8-23) H 01/31/24 04:19 Creatinine 1.6 mg/dL (0.7-1.2) H 01/31/24 04:19 GFR Calculation 44.2 mL/min (90-130) L 01/31/24 04:19 Glucose 151 mg/dL (65-115) H 01/31/24 04:19 POC Glucose 218 mg/dL (70-110) H 01/31/24 07:55 Estimat Average Glucose 166 01/31/24 04:19 Hemoglobin A1c 7.4 % (4.0-6.0) H 01/31/24 04:19 Calculated Osmolality 295 mOsm/kg (285-295) 01/31/24 04:19 Calcium 8.7 mg/dL (8.5-10.5) 01/31/24 04:19 Phosphorus 4.4 mg/dL (2.5-4.5) 01/31/24 04:19 Magnesium 1.6 mg/dL (1.7-2.3) L 01/31/24 04:19 Iron 24 ug/dL (59-158) L 01/30/24 14:51 TIBC 353 mcg/dl 01/30/24 14:51 % Saturation 6.7 % (20-50) L 01/30/24 14:51 Unsat Iron Binding 329 ug/dL (112-347) 01/30/24 14:51 Total Bilirubin 0.3 mg/dL (0.15-1.2) 01/31/24 04:19 AST 24 U/L (0-40) 01/31/24 04:19 ALT 16 U/L (0-41) 01/31/24 04:19 Alkaline Phosphatase 83 U/L (40-130) 01/31/24 04:19 Troponin T Baseline 522 ng/L (0-15) H* 01/30/24 14:51 Troponin T 120 Minute 535.4 ng/L (0-15) H 01/30/24 16:35 Delta Troponin T 13.4 ABS# (0-10) H* 01/30/24 16:35 Troponin T Hi Sens 6Hr 639.2 ng/L (0-15) H 01/30/24 20:23 Troponin T Hi Sens 6Hr Delta 117.2 ng/L (0-12) H* 01/30/24 20:23 NT-Pro-B Natriuret Pep 6074 pg/mL (0-125) H 01/30/24 14:51 Total Protein 6.3 g/dL (6.6-8.7) L 01/31/24 04:19 Albumin 3.7 g/dL (3.5-5.2) 01/31/24 04:19 Globulin 2.6 g/dL (1.3-4.6) 01/31/24 04:19 Triglycerides 179 mg/dL (0-150) H 01/31/24 04:19 Cholesterol 120 mg/dL (0-200) 01/31/24 04:19 LDL Cholesterol, Calc 59 mg/dL (50-129) 01/31/24 04:19 HDL Cholesterol 25 mg/dL (60-100) L 01/31/24 04:19 LDL/HDL Ratio 2.36 RATIO (0.00-3.22) 01/31/24 04:19 Cholesterol/HDL Ratio 4.80 mg/dL (1.0-5.00) 01/31/24 04:19 Lipase 43 U/L (13-60) 01/30/24 14:51 Vitamin B12 340 pg/mL (232-1245) 01/30/24 14:51 Folate 5.4 ng/mL (4.5-32.2) 01/31/24 04:19 Procalcitonin 0.08 ng/mL (0-0.5) 01/31/24 04:19 TSH 1.38 uIU/mL (0.27-4.20) 01/30/24 14:54 Urine Color Yellow (Yellow) 01/30/24: Urine Appearance Clear (CLEAR) 01/30/24: Urine pH 5.0 (5-7) 01/30/24: Ur Specific Carter 1.022 (1.005-1.030) 01/30/24 17: Urine Protein 1+ (Negative) A 01/30/24: Urine Glucose (UA) Negative (Normal) 01/30/24 Urine Ketones Negative (Negative) 01/30/24 Urine Blood Negative (Negative) 01/30/24 Urine Nitrate Negative (Negative) 01/30/24 Urine Bilirubin Negative (Negative) 01/30/24 Urine Urobilinogen 0.2 mg/dL (Negative) 01/30/24: Ur Leukocyte Esterase Negative (Negative) 01/30/24: Urine RBC 0-2 /hpf (0-2) 01/30/24: Urine WBC 0-5 /hpf (0-5) 01/30/24: Ur Squamous Epith Cells 0-5 /hpf (0-5) 01/30/24: Amorphous Sediment Not Reportable 01/30/24: Urine Bacteria None seen /hpf (NONE) 01/30/24: Hyaline Casts 0.40 /lpf 01/30/24 17: Ur Random Sodium 76 mmol/L 01/30/24 17: Ur Random Potassium 20 mmol/L 01/30/24: Ur Random Chloride 83 mmol/L 01/30/24: Urine Creatinine 41 mg/dL (39-259) 01/30/24 17: Adenovirus (PCR) Not detected (NOT DETECT) 01/30/24 16:45 C. pneumoniae DNA (PCR) Not detected (NOT DETECT) 01/30/24 16:45 Coronavirus 229E (PCR) Not detected (NOT DETECT) 01/30/24 16:45 Human Metapneumovir PCR Not detected (NOT DETECT) 01/30/24 16:45 Influenza A (H1) PCR Not detected (NOT DETECT) 01/30/24 16:45 Influ A (H1/09) PCR Not detected (NOT DETECT) 01/30/24 16:45 Influenza A (H3) PCR Not detected (NOT DETECT) 01/30/24 16:45 Influenza Type A (PCR) Not detected (NOT DETECT) 01/30/24 16:45 Influenza Type B (PCR) Not detected (NOT DETECT) 01/30/24 16:45 M. pneumoniae (PCR) Not detected (NOT DETECT) 01/30/24 16:45 Parainfluenza 1 (PCR) Not detected (NOT DETECT) 01/30/24 16:45 Parainfluenza 2 (PCR) Not detected (NOT DETECT) 01/30/24 16:45 Parainfluenza 3 (PCR) Not detected (NOT DETECT) 01/30/24 16:45 Parainfluenza 4 (PCR) Not detected (NOT DETECT) 01/30/24 16:45 RSV Type A (PCR) Not detected (NOT DETECT) 01/30/24 16:45 RSV Type B (PCR) Not detected (NOT DETECT) 01/30/24 16:45 Entero/Rhino (PCR) Not detected (NOT DETECT) 01/30/24 16:45 SARS-CoV-2 (PCR) Not detected (NOT DETECT) 01/30/24 16:45 Other data: Echocardiogram done on 01/30/2024 Moderate diffuse hypokinesia of the left ventricule with an ejection fraction of 33%. Mildly increased left atrial size. Moderate mitral annular calcification. Thickened aortic valve. Trace tricuspid valve regurgitation. There is no pericardial effusion. There are no intracardiac masses. No similar previous studies are available for comparison A&P Assessment and plan (1) Chest pain: Patient is a clinical features are suggestive of an unstable angina. Currently he seems to be stable hemodynamically. EKG changes are suggestive of high lateral wall ischemia. Qualifiers: Chest pain type: unspecified Qualified Code(s): R07.9 - Chest pain, unspecified (2) Non-ST elevation NC (NSTEMI): Patient came with a baseline troponin T in the 500 range. The 2-hour delta is around 12. He also was found to have elevated BNP.. Hemodynamically seems to be stable. The 6-hour delta is 117. (3) Type 2 diabetes mellitus: The recent hemoglobin A1c was 7.3. He need aggressive management of the diabetes. Qualifiers: Diabetes mellitus rat exterminator insulin use: without rat exterminator use Diabetes mellitus complication status: without complication Qualified Code(s): E11.9 - Type 2 diabetes mellitus without complications (4) AMEENA (acute kidney injury): According the patient, his kidney function was normal in the past. The kidney function need to be closely monitored. The creatinine today is 1.6. May give some careful hydration (5) Hypertension: The blood pressure is mildly elevated. Need to optimize the antihypertensive medications. Qualifiers: Hypertension type: primary hypertension Qualified Code(s): I10 - Essential (primary) hypertension (6) Dyslipidemia: Patient may continue the statin and dietary modifications. (7) Cigarette smoker motivated to quit: Patient seems to be motivated to quit smoking. Cardiovascular implications were discussed. (8) Ischemic cardiomyopathy: Once the kidney function gets stabilized, consider starting on GDMT Plan Other problems are History of CVA with no residual weakness Questionable history of peripheral artery disease May hold off on the Lasix for today. Will give some careful IV hydration with normal saline 75 cc/h. Repeat BMP this afternoon. If the BUN/creatinine levels are not improving, we may need to hold off on the cardiac catheterization. Based on the clinical progress, further recommendations will be made. Attestations 2 Medical Necessity Statement*: Patient requires continued hospital stay for close monitoring and further management Coding Level of Care Code 15651 Diagnoses Chest pain, unspecified type R07.9 Chest pain type: unspecified Non-ST elevation NC (NSTEMI) I21.4 Type 2 diabetes mellitus without complication, without long-term current use of insulin E11.9 Diabetes mellitus jail insulin use: without rat exterminator use Diabetes mellitus complication status: without complication AMEENA (acute kidney injury) N17.9 Primary hypertension I10 Hypertension type: primary hypertension Dyslipidemia E78.5 Cigarette smoker motivated to quit F17.210 Ischemic cardiomyopathy I25.5
[2024-01-31] MEDS: budesonide 0.5 mg/2 mL Neb INHALATION ×2 (09:00→20:53)
--- NOTE | 2024-01-31 09:30 | US_ITS ---
WS: [id number] RENAL ULTRASOUND URINARY BLADDER ULTRASOUND HISTORY: AMEENA COMPARISON: CT 01/30/2024 TECHNIQUE: 2-D and color Doppler imaging of the kidney submitted. Right kidney: 13.7 cm x 6.1 cm x 5.4 cm. Enlarged RIGHT kidney with innumerable cystic masses replacing the normal parenchyma. No significantl y identifiable normal renal cortex. Largest cyst measures 7.2 x 4.9 x 5.3 cm. Left kidney: 13.3 cm x 5.6 cm x 5.5 cm. Normal echogenicity with no hydronephrosis or mass. Aorta: Poorly visualized. Urinary Bladder: Nondistended. US/US renal BI with PV bladder IMPRESSION: 1. Innumerable cysts RIGHT kidney. Complete loss of the normal renal parenchyma . 2. Normal LEFT kidney.
[2024-01-31] MEDS: magnesium sulfate premix 2 GM/50 ML PIGGYBACK IV (10:19)
[2024-01-31] MEDS: heparin drip 25,000 UNIT/500 ML PREMIX 28 UNIT IV (10:46)
[2024-01-31] MEDS: sodium chloride 0.9% 1,000 ML 75 ML IV ×2 (10:46→21:23)
[2024-01-31 11:07] LABS: Partial Thromboplastin Time 44.8 SECONDS (23.9-36.7)
[2024-01-31 11:52] LABS: Glucose Point of Care 266 mg/dL (70-110)
--- NOTE | 2024-01-31 11:56 | P.PN_ITS ---
Subjective 2 Subjective: His anxiety has been flaring up. He is also having constipation. Vitals/I&O/Wt Last Vital Signs Temp 98.3 F 01/31/24 11:18 Pulse 95 01/31/24 11:18 Resp 19 H 01/31/24 11:18 BP 103/64 01/31/24 11:18 Pulse Ox 95 01/31/24 11:18 O2 Del Method Room Air 01/31/24 11:18 O2 Flow Rate 1 01/31/24 02:54 01/30/24 01/31/24 01/31/24 22:59 06:59 14:59 Intake Total 1326.589 / 1326.589 543.411 / 543.411 Output Total 750 / 750 275 / 1025 200 / 200 Balance -750 / -750 1051.589 / 301.589 343.411 / 343.411 Weight last 48 hrs Weight 101.151 kg Weight 101.151 kg Weight 101.151 kg Physical Exam 2 Narrative: Accompanied by his . Const: COMMON NORMALS: patient oriented x3 and alert GENERAL APPEARANCE: c ooperative ORIENTATION/CONSCIOUSNESS: Yes awake HENMT: COMMON NORMALS: oropharynx normal Neck/C-Spine: COMMON NORMALS: no JVD Resp: COMMON NORMALS: normal respiratory effort and clear to auscultation bilaterally AUSCULTATION: clear to auscultation bilaterally Cardio: COMMON NORMALS: no JVD, regular rhythm, S1 normal heart sound present, S2 normal heart sound present and No murmurs present (Cardio) RHYTHM: regular rhythm HEART SOUNDS: S1 normal heart sound present and S2 normal heart sound present GI: COMMON NORMALS: Normal to inspection, nondistended, normoactive bowel sounds present, Soft to palpation and non-tender PALPATION: Yes Soft to palpation Extremity: COMMON NORMALS: no joint enlargement and no pedal edema Neuro: COMMON NORMALS: patient oriented x3 and moves all extremities S ENSORIUM/ORIENTATION: Yes alert Skin: COMMON NORMALS: no rashes or lesions noted GENERAL SKIN EXAM: no rashes or lesions noted Data 01/31/24 04:19 01/31/24 15:05 Micro: Microbiology 01/30/24 17:29 Bacterial Antigens - Final Urine Kidney A&P Assessment and plan (1) AMEENA (acute kidney injury): Reviewed BUN, creatinine, potassium, magnesium. Replace magnesium. Discussed with cardiology, reassess renal function. Would like to see improvement prior to proceeding with coronary angiogram. Cardiology added IV fluid, monitor for risk of fluid overload. Reassess volume status. Renal function. Baseline creatinine normal. Presenting renal function of 1.4. Could be in setting of CHF. Patient did have a CTA in the ER on presentation. Medical reconciliation done for nephrotoxic drugs. Hold off on home dose of metformin, lisinopril, glimepiride. Check renal ultrasound. Urinalysis, urine creatinine and urine lites. Monitor BMP daily. Lasix as above. (2) NSTEMI (non-ST elevation myocardial infarction): Pending reassessment of renal function prior to proceeding with coronary angiography per discussion with wharf tender. Monitor telemetry. Repeat chemistry. Continue anticoagulation with heparin drip, monitor for risk of bleeding on anticoagulant infusion. Reviewed PTT, monitor PTT. Discussed with nursing, case resource manager Chest pain in setting of non-ST elevation MS. Baseline troponin 500. Aspirin 325 mg stat followed by 81 mg daily, continue with home dose of Plavix. Patient is currently tachycardic. Give 5 mg of IV metoprolol followed by 25 mg twice daily. Will uptitrate as for goal blood pressures. Continue with heparin drip. Stat echocardiogram as per cardiology recommendations. Cardiology has been consulted. (3) Acute hypoxic respiratory failure: Currently on room air. Most likely in setting of congestive heart failure with concerns for bronchitis along with mild mucous plugging as seen on CTA. PE ruled out. Oxygen supplementation keeping saturation over 92%. Pulmicort twice daily, ipratropium, Xopenex every 6 hour. (4) Bronchitis: Check respiratory viral panel, bacterial antigen, sputum culture. Bacterial pneumonia less likely. Empirically for now start on treatment for community-acquired pneumonia with oral azithromycin 5 mg daily along with IV ceftriaxone 1 g daily. Check blood cultures. (5) CHF (congestive heart failure): Reviewed echocardiogram. Noted EF 33%. IV Lasix 40 mg one-time. Strict input output charting, daily weights. For suction up to 1500 cc. Patient requesting no Sarkar for now. (6) Mucus plugging of bronchi: Continue current care. On ceftriaxone, azithromycin, expectorants. Reviewed procalcitonin, 0.08. Afebrile. No leukocytosis. Will stop antibiotics. Aggressive pulmonary toilet with I-S and Acapella. Start on Mucomyst every 4 hour. (7) Hypertension: Goal blood pressure less than 140/90 mmHg. Continue with metoprolol as above. Uptitrate as for goal blood pressures. Qualifiers: Hypertension type: primary hypertension Qualified Code(s): I10 - Essential (primary) hypertension (8) Type 2 diabetes mellitus: A1c 7.4. Takes OHA's along with Lantus 15 units nightly. Sliding scale moderate dose protocol, Lantus 10 units nightly. Qualifiers: Diabetes mellitus complication status: without complication Diabetes mellitus termite treater helper insulin use: without termite treater helper use Qualified Code(s): E11.9 - Type 2 diabetes mellitus without complications (9) Tachycardia: (10) Chest pain: Qualifiers: Chest pain type: unspecified Qualified Code(s): R07.9 - Chest pain, unspecified Plan Constipation: Prescription with him add scheduled stool softener. Anxiety: Patient would like to continue with hydroxyzine for now. Has admitted and taking Xanax. Recent shoulder surgery: Continue with home hydrocodone at home schedule. Full code Carb consistent cardiac diet, n.p.o. as per cardiology schedule Protonix OPD prophylaxis Heparin drip will be sufficient for DVT prophylaxis Attestations 2 Medical Necessity Statement*: Continue admission for assessment management of NSTEMI in the setting of AMEENA, indeterminate with new cardiomyopathy. and High MDM includes amount and/or complexity of data reviewed/ordered [ resulted lab(s)/test(s), ordered lab(s)/test(s) and other healthcare professional discussion] and described risk of complication, morbidity or mortality of management as documented Diagnoses AMEENA (acute kidney injury) N17.9 NSTEMI (non-ST elevation myocardial infarction) I21.4 Acute hypoxic respiratory failure J96.01 Bronchitis J40 CHF (congestive heart failure) I50.9 Mucus plugging of bronchi T17.500A Primary hypertension I10 Hypertension type: primary hypertension Type 2 diabetes mellitus without complication, without long-term current use of insulin E11.9 Diabetes mellitus complication status: without complication Diabetes mellitus skilled nursing insulin use: without skilled nursing use Tachycardia R00.0 Chest pain, unspecified type R07.9 Chest pain type: unspecified
[2024-01-31] MEDS: sennosides-docusate Tablet 1 TAB PO ×2 (14:09→18:35)
[2024-01-31 16:15] LABS: Blood Urea Nitrogen 27 mg/dL (8-23); Calcium 8.7 mg/dL (8.5-10.5); Carbon Dioxide 23 mmol/L (22-29); Chloride 103 mmol/L (98-107); Creatinine Clr Calc Pharmacy 57.7827; Glomerular Filtration Rate 44.2 mL/min (90-130); Glucose 127 mg/dL (65-115); Osmolality Calculated 297 mOsm/kg (285-295); Sodium 140 mmol/L (136-145)
[2024-01-31] MEDS: cefTRIAXone 1,000 mg SDV 1000 MG IVP (16:16)
[2024-01-31] MEDS: pantoprazole 40 mg SDV IVP (16:16)
[2024-01-31 17:35] LABS: Glucose Point of Care 120 mg/dL (70-110)
[2024-01-31 19:40] LABS: Partial Thromboplastin Time 57.6 SECONDS (23.9-36.7)
[2024-01-31 19:43] LABS: Glucose Point of Care 233 mg/dL (70-110)
[2024-01-31] MEDS: atorvastatin 40 mg Tablet PO (20:17)
[2024-01-31] MEDS: insulin glargine 100 units/1 mL 10 UNIT SUBCUT (20:21)
[2024-01-31] MEDS: HYDROcodone-acetaminophen 5-325 mg Tablet 1 TAB PO (20:21)
[2024-02-01] VITALS (86 sets, daily range): BP systolic 106–136; BP diastolic 68–90; PULSE 97–116; RESP 12–32; TEMP 36.7–37.3; O2SAT 79–98; BMI 34.2
[2024-02-01 02:38] LABS: Platelet Count 187 10^3/cmm (157-399)
[2024-02-01 03:26] LABS: Partial Thromboplastin Time 65.2 SECONDS (23.9-36.7)
[2024-02-01] MEDS: levalbuterol 0.63 mg/3 mL Neb INHALATION ×4 (03:26→21:12)
[2024-02-01] MEDS: acetylcysteine 200 mg/mL SDV 4 mL 100 MG INHALATION ×4 (03:26→21:11)
[2024-02-01] MEDS: ipratropium 0.5 mg/2.5 mL Neb INHALATION ×4 (03:26→21:12)
[2024-02-01] MEDS: heparin drip 25,000 UNIT/500 ML PREMIX 30 UNIT IV (03:28)
[2024-02-01 06:19] LABS: Glucose Point of Care 196 mg/dL (70-110)
--- NOTE | 2024-02-01 07:56 | PM.PN ---
Subjective Subjective: Patient is feeling better. The creatinine today is 1.3. No new arrhythmias on the monitor. Denies any chest pain. Had some evidence of heart failure this morning. Responded to IV Lasix. He is feeling much better now. Oxygen saturation also has improved from 89 to 93%. Medications: Medication Review Details: Current Medications Acetaminophen (Acetaminophen 325 Mg Tablet) 650 mg PO Q6H PRN PRN Reason: Mild/Mod Pain Or Temp >/= 101 Hydrocodone Bitart/Acetaminophen (Hydrocodone-Acetaminophen 5-325 Mg Tablet) 1 tab PO 5XD PRN PRN Reason: pain Last Admin: 01/31/24 20:21 Dose: 1 tab Acetylcysteine (Acetylcysteine 200 Mg/Ml Sdv 4 Ml) 100 mg INHALATION Q6H.RESP ALVARO Last Admin: 02/01/24 03:26 Dose: 100 mg Atorvastatin Calcium (Atorvastatin 40 Mg Tablet) 40 mg PO BEDTIME ALVARO Last Admin: 01/31/24 20:17 Dose: 40 mg Bisacodyl (Bisacodyl 5 Mg Tablet) 10 mg PO DAILY PRN; Protocol PRN Reason: Constipation (see protocol) Budesonide (Budesonide 0.5 Mg/2 Ml Neb) 0.5 mg INHALATION BID.RESPIRATORY ALVARO Last Admin: 01/31/24 20:53 Dose: 0.5 mg Clopidogrel Bisulfate (Clopidogrel 75 Mg Tablet) 75 mg PO DAILY ALVARO Last Admin: 01/31/24 07:48 Dose: 75 mg Gemfibrozil (Gemfibrozil 600 Mg Tablet) 600 mg PO BID ALVARO Last Admin: 01/31/24 18:35 Dose: 600 mg Glucagon (Glucagon 1 Mg/Ml Kit 1 Ml) 1 mg IM ONCE PRN; Protocol PRN Reason: Adult Acute Hypoglycemia Nursing Prot. Heparin Sodium (Porcine) (Heparin 5,000 Unit/Ml Inj 1 Ml) 0 unit IVP PRN PRN; Protocol PRN Reason: Heparin Weight Based Protocol -Subsequent Bolus Hydroxyzine Pamoate (Hydroxyzine 25 Mg Capsule) 25 mg PO QID PRN PRN Reason: ANXIETY Last Admin: 01/31/24 20:17 Dose: 25 mg Heparin Sodium/Sodium Chloride (Heparin Drip) 25,000 unit in 500 mls @ 0 mls/hr IV CONT ALVARO; Protocol Last Admin: 02/01/24 03:28 Dose: 14.83 unit/kg/hr, 30 mls/hr Dextrose (D5w) 500 mls @ 0 mls/hr IV ONCE PRN; Protocol PRN Reason: Adult Acute Hypoglycemia Prot Dextrose (D10w) 125 mls @ 750 mls/hr IV PRN PRN; Protocol PRN Reason: Adult Acute Hypoglycemia Nursing Protocol Dextrose (D10w) 250 mls @ 1,000 mls/hr IV PRN PRN; Protocol PRN Reason: Adult Acute Hypoglycemia Nursing Protocol Sodium Chloride (Sodium Chloride 0.9%) 1,000 mls @ 75 mls/hr IV .[id number] [facility] Last Admin: 01/31/24 21:23 Dose: 75 mls/hr Insulin Glargine (Insulin Glargine 100 Units/1 Ml) 10 unit SUBCUT BEDTIME ALVARO Last Admin: 01/31/24 20:21 Dose: 10 unit Insulin Human Lispro (Insulin Lispro 100 Unit/1 Ml) 0 unit SUBCUT WM&BEDTIME ALVARO; Protocol Last Admin: 01/31/24 20:17 Dose: 8 unit Ipratropium [place] (Ipratropium 0.5 Mg/2.5 Ml Neb) 0.5 mg INHALATION Q6H.RESP [facility] Last Admin: 02/01/24 03:26 Dose: 0.5 mg Lactulose (Lactulose Oral Liq 20 Gm/30 Ml Udc) 10 gm PO DAILY PRN; Protocol PRN Reason: Constipation (see protocol) Levalbuterol HCl (Levalbuterol 0.63 Mg/3 Ml Neb) 0.63 mg INHALATION Q6H.RESP [facility] Last Admin: 02/01/24 03:26 Dose: 0.63 mg Magnesium Hydroxide (Magnesium Hydroxide 30 Ml Udc) 30 ml PO DAILY PRN; Protocol PRN Reason: Constipation (see protocol) Metoprolol Tartrate (Metoprolol Tartrate 25 Mg Tablet) 25 mg PO BID@0900,2100 [facility] Last Admin: 01/31/24 20:24 Dose: 25 mg Morphine Sulfate (Morphine 4 Mg/Ml Sdv 1 Ml) 2 mg IVP Q4H PRN PRN Reason: SEVERE PAIN Ondansetron HCl (Ondansetron 2 Mg/Ml Sdv 2 Ml) 4 mg IVP Q6H PRN PRN Reason: vomiting, or N/V if npo Pantoprazole Sodium (Pantoprazole 40 Mg Sdv) 40 mg IVP Q24H [facility] Last Admin: 01/31/24 16:16 Dose: 40 mg Senna/Docusate Sodium (Sennosides-Docusate Tablet) 1 tab PO BID [facility] Last Admin: 01/31/24 18:35 Dose: 1 tab Vitals/I&O/Wt Last Vital Signs Temp 98.1 F 02/01/24 03:56 Pulse 102 H 02/01/24 07:11 Resp 24 H 02/01/24 07:11 BP 136/89 02/01/24 07:11 Pulse Ox 92 02/01/24 07:11 O2 Del Method Room Air 02/01/24 07:11 O2 Flow Rate 1 01/31/24 02:54 01/31/24 02/01/24 02/01/24 22:59 06:59 14:59 Intake Total 1193 / 1819.011 819.5 / 2638.511 Output Total 975 / 1175 650 / 1825 Balance 218 / 644.011 169.5 / 813.511 Weight last 48 hrs Weight 238 lb 4.8 oz Weight 223 lb Weight 223 lb Weight 223 lb Weight 223 lb Physical Exam Narrative: GENERAL: The patient is alert and oriented times three. Not in any acute distress. HEENT: No significant pallor, icterus or lymphadenopathy.Oral cavity: There are no mucous membrane lesions. NECK: Trachea appears to be central. No masses noted. No JVD or thyromegaly appreciated. RESPIRATORY: Chest is symmetrical. No intercostals muscle retraction or any accessory muscle activation. There is no chest wall tenderness. Breath sounds are heard bilaterally. No rales or rhonchi heard. No evidence of any consolidation. BREASTS: Deferred. HEART: The heart sounds are normal. No S3 or S4. No significant murmurs. No pericardial rub ABDOMEN: No vessel pulsations or distention. No tenderness. No organomegaly appreciated. Bowel sounds are normally heard. : Deferred. RECTAL: Deferred. LYMPHATIC: No lymphadenopathy noted in the neck. EXTREMITIES: The dorsalis pedis and posterior pulses are weak bilaterally. MUSCULOSKELETAL: No acute joint deformities or swelling SKIN: There are no significant rashes or ecchymosis NEUROPSYCHIATRIC: The patient is alert and oriented x3. Appears to be in a good mood. No tremors or rigidity noted. Data 02/01/24 02:14 02/01/24 08:38 Other Labs: Laboratory Last Values WBC 7.62 10^3/uL (3.29-11.43) 01/31/24 04:19 RBC 4.43 10^6/uL (3.85-5.65) 01/31/24 04:19 Hgb 11.80 g/dL (11.27-16.99) 01/31/24 04:19 Hct 36.3 % (37-53) L 01/31/24 04:19 MCV 81.9 fl (82-101) L 01/31/24 04:19 MCH 26.6 pg (27-33) L 01/31/24 04:19 MCHC 32.5 g/dL (30-55) 01/31/24 04:19 RDW 15.5 % (12.1-15.1) H 01/31/24 04:19 Plt Count 187 10^3/cmm (157-399) 02/01/24 02:14 MPV 11.1 fL (7.4-10.4) H 01/31/24 04:19 Neut % (Auto) 63.9 % 01/31/24 04:19 Lymph % (Auto) 22.6 % 01/31/24 04:19 [place] % (Auto) 11.5 % 01/31/24 04:19 Eos % (Auto) 0.9 % 01/31/24 04:19 Baso % (Auto) 0.7 % 01/31/24 04:19 Neut # (Auto) 4.87 10^3/uL (1.8-7.7) 01/31/24 04:19 Lymph # (Auto) 1.7 10^3/uL (0.8-4.8) 01/31/24 04:19 [place] # (Auto) 0.9 10^3/uL (0.2-0.9) 01/31/24 04:19 Eos # (Auto) 0.1 10^3/uL (0.0-0.8) 01/31/24 04:19 Baso # (Auto) 0.1 10^3/uL (0.0-0.1) 01/31/24 04:19 Nucleated RBC % (auto) 0 % 01/31/24 04:19 Nucleated RBCs # 0.0 /100WBC 01/31/24 04:19 PT 15.60 SECONDS (12.1-14.9) H 01/30/24 14:51 INR 1.20 (0.8-1.2) 01/30/24 14:51 APTT 65.2 SECONDS (23.9-36.7) H 02/01/24 02:14 Sodium 140 mmol/L (136-145) 01/31/24 15:05 Potassium 4.0 mmol/L (3.5-5.1) 01/31/24 15:05 Chloride 103 mmol/L (98-107) 01/31/24 15:05 Carbon Dioxide 23 mmol/L (22-29) 01/31/24 15:05 Anion Gap 18.0 (5-19) 01/31/24 15:05 BUN 27 mg/dL (8-23) H 01/31/24 15:05 Creatinine 1.6 mg/dL (0.7-1.2) H 01/31/24 15:05 GFR Calculation 44.2 mL/min (90-130) L 01/31/24 15:05 Glucose 127 mg/dL (65-115) H 01/31/24 15:05 POC Glucose 196 mg/dL (70-110) H 02/01/24 06:14 Estimat Average Glucose 166 01/31/24 04:19 Hemoglobin A1c 7.4 % (4.0-6.0) H 01/31/24 04:19 Calculated Osmolality 297 mOsm/kg (285-295) H 01/31/24 15:05 Calcium 8.7 mg/dL (8.5-10.5) 01/31/24 15:05 Phosphorus 4.4 mg/dL (2.5-4.5) 01/31/24 04:19 Magnesium 1.6 mg/dL (1.7-2.3) L 01/31/24 04:19 Iron 24 ug/dL (59-158) L 01/30/24 14:51 TIBC 353 mcg/dl 01/30/24 14:51 % Saturation 6.7 % (20-50) L 01/30/24 14:51 Unsat Iron Binding 329 ug/dL (112-347) 01/30/24 14:51 Total Bilirubin 0.3 mg/dL (0.15-1.2) 01/31/24 04:19 AST 24 U/L (0-40) 01/31/24 04:19 ALT 16 U/L (0-41) 01/31/24 04:19 Alkaline Phosphatase 83 U/L (40-130) 01/31/24 04:19 Troponin T Baseline 522 ng/L (0-15) H* 01/30/24 14:51 Troponin T 120 Minute 535.4 ng/L (0-15) H 01/30/24 16:35 Delta Troponin T 13.4 ABS# (0-10) H* 01/30/24 16:35 Troponin T Hi Sens 6Hr 639.2 ng/L (0-15) H 01/30/24 20:23 Troponin T Hi Sens 6Hr Delta 117.2 ng/L (0-12) H* 01/30/24 20:23 NT-Pro-B Natriuret Pep 6074 pg/mL (0-125) H 01/30/24 14:51 Total Protein 6.3 g/dL (6.6-8.7) L 01/31/24 04:19 Albumin 3.7 g/dL (3.5-5.2) 01/31/24 04:19 Globulin 2.6 g/dL (1.3-4.6) 01/31/24 04:19 Triglycerides 179 mg/dL (0-150) H 01/31/24 04:19 Cholesterol 120 mg/dL (0-200) 01/31/24 04:19 LDL Cholesterol, Calc 59 mg/dL (50-129) 01/31/24 04:19 HDL Cholesterol 25 mg/dL (60-100) L 01/31/24 04:19 LDL/HDL Ratio 2.36 RATIO (0.00-3.22) 01/31/24 04:19 Cholesterol/HDL Ratio 4.80 mg/dL (1.0-5.00) 01/31/24 04:19 Lipase 43 U/L (13-60) 01/30/24 14:51 Vitamin B12 340 pg/mL (232-1245) 01/30/24 14:51 Folate 5.4 ng/mL (4.5-32.2) 01/31/24 04:19 Procalcitonin 0.08 ng/mL (0-0.5) 01/31/24 04:19 TSH 1.38 uIU/mL (0.27-4.20) 01/30/24 14:54 Urine Color Yellow (Yellow) 01/30/24: Urine Appearance Clear (CLEAR) 01/30/24: Urine pH 5.0 (5-7) 01/30/24: Ur Specific [place] 1.022 (1.005-1.030) 01/30/24: Urine Protein 1+ (Negative) A 01/30/24 17: Urine Glucose (UA) Negative (Normal) 01/30/24: Urine Ketones Negative (Negative) 01/30/24 Urine Blood Negative (Negative) 01/30/24 Urine Nitrate Negative (Negative) 01/30/24: Urine Bilirubin Negative (Negative) 01/30/24: Urine Urobilinogen 0.2 mg/dL (Negative) 01/30/24: Ur Leukocyte Esterase Negative (Negative) 01/30/24: Urine RBC 0-2 /hpf (0-2) 01/30/24 17: Urine WBC 0-5 /hpf (0-5) 01/30/24: Ur Squamous Epith Cells 0-5 /hpf (0-5) 01/30/24: Amorphous Sediment Not Reportable 01/30/24 17: Urine Bacteria None seen /hpf (NONE) 01/30/24: Hyaline Casts 0.40 /lpf 01/30/24 17: Ur Random Sodium 76 mmol/L 01/30/24 17: Ur Random Potassium 20 mmol/L 01/30/24 17: Ur Random Chloride 83 mmol/L 01/30/24 17: Urine Creatinine 41 mg/dL (39-259) 01/30/24 17: Adenovirus (PCR) Not detected (NOT DETECT) 01/30/24 16:45 C. pneumoniae DNA (PCR) Not detected (NOT DETECT) 01/30/24 16:45 Coronavirus 229E (PCR) Not detected (NOT DETECT) 01/30/24 16:45 Human Metapneumovir PCR Not detected (NOT DETECT) 01/30/24 16:45 Influenza A (H1) PCR Not detected (NOT DETECT) 01/30/24 16:45 Influ A (H1/09) PCR Not detected (NOT DETECT) 01/30/24 16:45 Influenza A (H3) PCR Not detected (NOT DETECT) 01/30/24 16:45 Influenza Type A (PCR) Not detected (NOT DETECT) 01/30/24 16:45 Influenza Type B (PCR) Not detected (NOT DETECT) 01/30/24 16:45 M. pneumoniae (PCR) Not detected (NOT DETECT) 01/30/24 16:45 Parainfluenza 1 (PCR) Not detected (NOT DETECT) 01/30/24 16:45 Parainfluenza 2 (PCR) Not detected (NOT DETECT) 01/30/24 16:45 Parainfluenza 3 (PCR) Not detected (NOT DETECT) 01/30/24 16:45 Parainfluenza 4 (PCR) Not detected (NOT DETECT) 01/30/24 16:45 RSV Type A (PCR) Not detected (NOT DETECT) 01/30/24 16:45 RSV Type B (PCR) Not detected (NOT DETECT) 01/30/24 16:45 Entero/Rhino (PCR) Not detected (NOT DETECT) 01/30/24 16:45 SARS-CoV-2 (PCR) Not detected (NOT DETECT) 01/30/24 16:45 Micro: Microbiology 01/30/24 17:29 Bacterial Antigens - Final Urine Kidney A&P Assessment and plan (1) Chest pain: Patient is a clinical features are suggestive of an unstable angina. Currently he seems to be stable hemodynamically. EKG changes are suggestive of high lateral wall ischemia. Qualifiers: Chest pain type: unspecified Qualified Code(s): R07.9 - Chest pain, unspecified (2) Non-ST elevation PR (NSTEMI): Patient came with a baseline troponin T in the 500 range. The 2-hour delta is around 12. He also was found to have elevated BNP.. Hemodynamically seems to be stable. The 6-hour delta is 117. Will continue on the current treatment. (3) Type 2 diabetes mellitus: The recent hemoglobin A1c was 7.3. He need aggressive management of the diabetes. Qualifiers: Diabetes mellitus complication status: without complication Diabetes mellitus retirement insulin use: without retirement use Qualified Code(s): E11.9 - Type 2 diabetes mellitus without complications (4) AMEENA (acute kidney injury): According the patient, his kidney function was normal in the past. Kidney function seems to be fairly stable (5) Hypertension: The blood pressure is mildly elevated. Need to optimize the antihypertensive medications. Qualifiers: Hypertension type: primary hypertension Qualified Code(s): I10 - Essential (primary) hypertension (6) Dyslipidemia: Patient may continue the statin and dietary modifications. (7) Cigarette smoker motivated to quit: Patient seems to be motivated to quit smoking. Cardiovascular implications were discussed. (8) Ischemic cardiomyopathy: L ejection fraction was around 33% by echocardiogram Plan Other problems are History of CVA with no residual weakness Questionable history of peripheral artery disease He requires a cardiac authorization to evaluate his coronary status and decide on further management. The risk and benefits of the procedure were discussed with the patient. The risk of bleeding, hematoma, vascular injury, myocardial infarction, renal failure, CVA and other concomitant complications were explained in detail which the patient which he understood well and consented to proceed Attestations Medical Necessity Statement*: Patient requires continued hospital stay for further evaluation management of his condition Coding Level of Care Code 04983 Diagnoses Chest pain, unspecified type R07.9 Chest pain type: unspecified Non-ST elevation PR (NSTEMI) I21.4 Type 2 diabetes mellitus without complication, without long-term current use of insulin E11.9 Diabetes mellitus complication status: without complication Diabetes mellitus intermediate teacher insulin use: without retirement use AMEENA (acute kidney injury) N17.9 Primary hypertension I10 Hypertension type: primary hypertension Dyslipidemia E78.5 Cigarette smoker motivated to quit F17.210 Ischemic cardiomyopathy I25.5
[2024-02-01] MEDS: budesonide 0.5 mg/2 mL Neb INHALATION ×2 (07:58→21:12)
[2024-02-01] MEDS: sennosides-docusate Tablet 1 TAB PO ×2 (08:15→19:25)
[2024-02-01] MEDS: clopidogrel 75 mg Tablet PO (08:15)
[2024-02-01] MEDS: gemfibrozil 600 mg Tablet PO ×2 (08:15→19:24)
[2024-02-01] MEDS: insulin lispro 100 unit/1 mL SUBCUT ×2 (08:18→21:40)
[2024-02-01] MEDS: metoprolol tartrate 25 mg Tablet PO ×2 (08:18→19:30)
[2024-02-01 09:14] LABS: Blood Urea Nitrogen 23 mg/dL (8-23); Calcium 7.7 mg/dL (8.5-10.5); Carbon Dioxide 21 mmol/L (22-29); Chloride 104 mmol/L (98-107); Creatinine Clr Calc Pharmacy 73.4602; Glomerular Filtration Rate 56.1 mL/min (90-130); Glucose 190 mg/dL (65-115); Osmolality Calculated 293 mOsm/kg (285-295); Sodium 137 mmol/L (136-145)
[2024-02-01] MEDS: FUROsemide 10 mg/mL SDV 4mL 40 MG IVP (10:23)
[2024-02-01] MEDS: potassium chloride ER 20 mEq Tablet PO (10:24)
--- NOTE | 2024-02-01 10:37 | PM.PN ---
Subjective Subjective: Currently denies any chest pain. Has been feeling anxious. Vitals/I&O/Wt Last Vital Signs Temp 98.1 F 02/01/24 03:56 Pulse 100 02/01/24 08:00 Resp 24 H 02/01/24 08:00 BP 136/89 02/01/24 07:11 Pulse Ox 92 02/01/24 08:00 O2 Del Method Room Air 02/01/24 08:00 O2 Flow Rate 1 01/31/24 02:54 01/31/24 02/01/24 02/01/24 22:59 06:59 14:59 Intake Total 1193 / 1819.011 819.5 / 2638.511 480 / 480 Output Total 975 / 1175 650 / 1825 Balance 218 / 644.011 169.5 / 813.511 480 / 480 Weight last 48 hrs Weight 108.091 kg Weight 101.151 kg Weight 101.151 kg Weight 101.151 kg Weight 101.151 kg Physical Exam Narrative: Accompanied by his . Const: COMMON NORMALS: patient oriented x3 and alert GENERAL APPEARANCE: cooperative ORIENTATION/CONSCIOUSNESS: Yes awake HENMT: COMMON NORMALS: oropharynx normal Neck/C-Spine: COMMON NORMALS: no JVD Resp: COMMON NORMALS: normal respiratory effort and clear to auscultation bilaterally AUSCULTATION: clear to auscultation bilaterally Cardio: COMMON NORMALS: no JVD, regular rhythm, S1 normal heart sound present, S2 normal heart sound present and No murmurs present (Cardio) RHYTHM: regular rhythm HEART SOUNDS: S1 normal heart sound present and S2 normal heart sound present GI: COMMON NORMALS: Normal to inspection, nondistended, normoactive bowel sounds present, Soft to palpation and non-tender PALPATION: Yes Soft to palpation Extremity: COMMON NORMALS: no joint enlargement and no pedal edema Neuro: COMMON NORMALS: patient oriented x3 and moves all extremities SENSORIUM/ORIENTATION: Yes alert Skin: COMMON NORMALS: no rashes or lesions noted GENERAL SKIN EXAM: no rashes or lesions noted Data 02/01/24 02:14 02/01/24 08:38 Micro: Microbiology 01/31/24 16:34 Gram Stain - Final Sputum - Expectorated Sputum Sputum Culture - Preliminary 01/30/24 17:29 Bacterial Antigens - Final Urine Kidney A&P Assessment and plan (1) NSTEMI (non-ST elevation myocardial infarction): Reviewed PTT. Continues on anticoagulation. Monitor for risk of bleeding. Monitor PTT. Coronary angiogram today. Discussed with director of casework services, nursing. Monitor telemetry. Repeat chemistry. Continue Plavix, beta-sid, statin. Add aspirin 81 mg. Anxious. Xanax added for anxiety as needed. Chest pain in setting of non-ST elevation ND. Patient is currently tachycardic. Give 5 mg of IV metoprolol followed by 25 mg twice daily. Will uptitrate as for goal blood pressures. Continue with heparin drip. (2) AMEENA (acute kidney injury): Reviewed BMP repeated this morning, creatinine down to 1.3. Plans for coronary angiography today. As per cardiology IV fluid was stopped, and he received a dose of Lasix. Reviewed cardiology note. Baseline creatinine normal. Presenting renal function of 1.4. Could be in setting of CHF. Patient did have a CTA in the ER on presentation. Medical reconciliation done for nephrotoxic drugs. Hold off on home dose of metformin, lisinopril, glimepiride. Check renal ultrasound. Urinalysis, urine creatinine and urine lites. Monitor BMP daily. Lasix as above. (3) Acute hypoxic respiratory failure: Currently on room air. Most likely in setting of congestive heart failure with concerns for bronchitis along with mild mucous plugging as seen on CTA. PE ruled out. Oxygen supplementation keeping saturation over 92%. Pulmicort twice daily, ipratropium, Xopenex every 6 hour. (4) Bronchitis: Check respiratory viral panel, bacterial antigen, sputum culture. Bacterial pneumonia less likely. Empirically for now start on treatment for community-acquired pneumonia with oral azithromycin 5 mg daily along with IV ceftriaxone 1 g daily. Check blood cultures. (5) CHF (congestive heart failure): Reviewed echocardiogram. Noted EF 33%. IV fluids stopped. Received Lasix. Strict input output charting, daily weights. For suction up to 1500 cc. Patient requesting no Sarkar for now. (6) Mucus plugging of bronchi: Continue current care. On ceftriaxone, azithromycin, expectorants. Reviewed procalcitonin, 0.08. Afebrile. No leukocytosis. Will stop antibiotics. Add flutter valve, guaifenesin. Stop Mucomyst. Aggressive pulmonary toilet with I-S and Acapella. Mucomyst every 4 hour. (7) Hypertension: Goal blood pressure less than 140/90 mmHg. Continue with metoprolol as above. Uptitrate as for goal blood pressures. Qualifiers: Hypertension type: primary hypertension Qualified Code(s): I10 - Essential (primary) hypertension (8) Type 2 diabetes mellitus: A1c 7.4. Takes OHA's along with Lantus 15 units nightly. Sliding scale moderate dose protocol, Lantus 10 units nightly. Qualifiers: Diabetes mellitus snf insulin use: without snf use Diabetes mellitus complication status: without complication Qualified Code(s): E11.9 - Type 2 diabetes mellitus without complications (9) Tachycardia: (10) Chest pain: Qualifiers: Chest pain type: unspecified Qualified Code(s): R07.9 - Chest pain, unspecified Plan Constipation: Prescription with him add scheduled stool softener. He reports he feels like it is starting to work. Anxiety: Patient would like to continue with hydroxyzine for now. Has admitted and taking Xanax. Recent shoulder surgery: Renew hydrocodone. Full code Heparin drip will be sufficient for DVT prophylaxis Attestations Medical Necessity Statement*: Continue admission for assessment of management of NSTEMI in setting of AMEENA. and High MDM includes amount and/or complexity of data reviewed/ordered [ previous or external records, resulted lab(s)/test(s) and other healthcare professional discussion] as documented Diagnoses NSTEMI (non-ST elevation myocardial infarction) I21.4 AMEENA (acute kidney injury) N17.9 Acute hypoxic respiratory failure J96.01 Bronchitis J40 CHF (congestive heart failure) I50.9 Mucus plugging of bronchi T17.500A Primary hypertension I10 Hypertension type: primary hypertension Type 2 diabetes mellitus without complication, without long-term current use of insulin E11.9 Diabetes mellitus long term acute care registered nurse insulin use: without snf use Diabetes mellitus complication status: without complication Tachycardia R00.0 Chest pain, unspecified type R07.9 Chest pain type: unspecified
--- NOTE | 2024-02-01 10:50 | PC.NURSE ---
Due to patient's anxiety, patient is refusing to be hooked up to his heparin for a short period of time. Xanxx given for anxiety.
[2024-02-01] MEDS: ALPRAZolam 0.5 mg Tablet PO ×2 (10:53→19:25)
[2024-02-01 11:08] LABS: Partial Thromboplastin Time 106.7 SECONDS (23.9-36.7)
[2024-02-01] MEDS: guaiFENesin 600 mg Tablet 1200 MG PO ×2 (11:49→19:24)
[2024-02-01 11:50] LABS: Glucose Point of Care 249 mg/dL (70-110)
[2024-02-01] MEDS: pantoprazole 40 mg SDV IVP (15:49)
--- NOTE | 2024-02-01 17:20 | XACV_ITS ---
Exam Room: 2 Ht: 178 cm Wt: 108 kg BSA: 2.35 m2 Gender: Male : 1965 Any Known Allergies: Codeine Exam Priority: Routine Procedure(s): Procedure Description: Diagnostic procedure Procedure Description: Left Heart Catheterization Procedure Description: Coronary Angiography Nathen TONY; Diagnostic Cath Status: Urgent Diagnostic Findings * Left main is a medium caliber vessel which he was found to have very distal tapering narrowing of around 80%. Moderate to heavy calcification was noted at the bifurcation, proximal segment of the circumflex and proximal to mid segments of the left anterior descending artery. * The left hand is any artery is a medium caliber vessel which appears to wraparound the LV apex. Moderate to heavy calcification was noted in the proximal to mid segment of the artery. Diffuse irregular narrowing of 30 to 40% was noted in this area. The distal artery also was found to have mild to moderate diffuse disease especially around the apex.. * Intermedius artery, high obtuse marginal branch was found to have ostial 99% lesion. Mild to moderate diffuse disease was noted in the proximal segment of the artery.. * The left circumflex artery is a medium to large caliber vessel which was found right ostial around 80% lesion. Just before the takeoff of the second OM branch, there was an eccentric around 70% stenosis. The second OM branch was found to have a tight 80% proximal lesion. The distal circumflex artery before its terminal trifurcation, was found to have around 70% stenosis. * The right coronary artery is a nondominant vessel which appears to bifurcate proximally. One of the bifurcation branches was found to have around 70% lesion. Conclusions 1. 59-year-old white male with a multiple slightly as well coronary disease, presenting with unstable anginal symptoms and features of congestive heart failure. Echocardiogram revealed ejection fraction of 33%. Troponin T was in the 500 range.The patient underwent left heart catheterization with left and right coronary angiogram today. The findings are as follows. 2. Around 80% distal left main disease. Moderate calcification in the distal left main, proximal segments of the left circumflex and left and descending artery. The left and descending artery was found to have a 30 to 40% diffuse irregular narrowing in the proximal to mid segment. Dominant left circumflex artery was found to have an 80% ostial stenosis. Mid circumflex artery had a 70% stenosis. OM 2 had a proximal around 80% lesion. Distal circumflex artery was found to have around 70% lesion. The first OM branch, intermedius artery was found to have around 90% ostial stenosis with moderate diffuse disease in the proximal segment. Nondominant right coronary artery has a 70% lesion in the one of the bifurcation branches. LVEDP of 46 mmHg. Recommendations * Patient was transferred to the medical floor in stable condition. Diagnostic RX Recommendation: CABG LV EDP: 46 mmHg Left Ventriculography Findings: * The LV gram was not performed. LVEDP was 46 mmHg. Pressures Phase:Rest AO : 107 / 76 ( 88 ) @ 12:31:03 PM 119 / 78 ( 94 ) @ 12:31:03 PM 119 / 78 ( 94 ) @ 12:31:03 PM LV : 131 / 12 / 45 @ 12:31:03 PM 131 / 12 / 46 @ 12:31:03 PM Valves Phase:DefaultPhase AV : 12.0 @ 6:31:03 PM AV Mean Gradient: 18.0 @ 6:31:03 PM Clinical Evaluation EBL: 5mL-10mL Procedural Details Procedure Consent Obtained. Admit Source: In Patient. Pre-Procedure Time Out. Identified patient by full name and date of as verbalized by the patient/guarantor. Does the consent match the physician's order: Yes. Accurate & Complete Informed Consent: Yes. Inpatient/Outpatient History & Physical on Chart: Yes. If H&P is completed, is and addenduem needed: No; If yes, is the addendum complete: N/A. Visualize and Verify Site with Patient/Guarantor: N/A. Relevant Radiology Images available: No. The risks, benefits, and alternatives of sedation and/or procedure were discussed by physician. The patient agrees to continue. Procedure started. [facility] Clinical Fraility Score: 4: Vulnerable. Bag Machine Tender Indications: ACS > 24 hours. Chest Pain Symptom Assessment: Typical Angina Symptoms. Correct patient, site and procedure confirmed by cath team. Current diagnosis: NSTEMI,Cardiomyopathy. PERRLA. Strong, equal hand transcript clerk bilaterally. Lungs clear x 5 lobes. IV Site on Arrival: 20 gauge in the right anticubital. IV Site on Arrival: 20 gauge in the left forearm. IV Fluids: 0.9% NaCl at KVO. 0 mL infused prior to slabbing machine operator. Oxygen started at 2liters/min via nasal canula. right radial was prepped with chloroprep then draped in the usual sterile fashion. right groin was prepped with chloroprep then draped in the usual sterile fashion. Physician notified. Physician arrived. Baseline sample Acquired. HR: 113 BPM. Physician scrubbed in. Immediate Pre-Procedure Time Out. Correct Patient: Yes; Correct Procedure: Yes; Correct Site: Yes; Correct Patient Position: Yes; Correct Supplies: Yes; Dried Flammable Prep: Yes; Blood Products Available: No;. Lidocaine 1% infiltrated to the right radial. Arterial access obtained. A 5 [place] catheter in over wire. ACT drawn. Results 165 seconds. Therapeutic limits - pre-heparin administration 90-150 seconds and monitoring heparin during a vascular procedure >250 seconds. Multiple views taken of left coronary artery. Catheter redirected to the RCA. Dr. Guerrero came to lab to review cine films. Catheter removed over the exchange wire. A 5 [place] JR4 catheter in over wire. Multiple views taken of right coronary artery. Catheter removed over the exchange wire. A 5 [place] Angled Pig catheter in over wire. EDP Sample taken: LV 131/12,45; HR: 107 BPM; SpO2: 88%. Pullback taken: LV 131/12,46; AO 119/78(94); Mean: 18mmHg, Peak to Peak: 12mmHg, SEP: 11sec/min; HR: 107 BPM; SpO2: 87%. Catheter removed over the exchange wire. A TR Band was successful obtaining hemostatsis at the Right Radial artery insertion site. Physician scrubbed out. Post Procedure: Pulses reassessed and unchanged. PERRLA. Strong, equal hand transcript clerk bilaterally. No VTE prophylaxis required. Medication's Wasted: Lidocaine 1% = 18 mL. Medication's Wasted: Nitro = 49.8 mg. Medication's Wasted: Heparin = 3000 unit. Medication's Wasted: Other = Fentanyl 50mcg, Versed 2 mg. Total IV fluids: 25 mL. Post-op diagnosis: Multivessel CAD, ischemic cardiomyopathy. Complications: None. Estimated blood loss: 5mL-10mL. Responsiveness - Normal response to verbal stimuli; alert and oriented, PERRLA. Airway - Unaffected, no intervention required; spontaneous ventilation. Circulation: W/N/L, pulses unchanged. Nausea/Vomiting: No. Procedure completed. Patient transferred by bed to 1st floor. Vital chart was stopped. Access Site Site: Right Radial artery Sheath Size: 6 Fr Hemostasis Method: TR Band Hemostasis Success: Successful Procedure Medications Start: 5:59 PM Stop: 5:59 PM Medication: Versed Amount: 1 mg Route: I.V. Start: 5:59 PM Stop: 5:59 PM Medication: Fentanyl Amount: 50 mcg Route: I.V. Start: 6:03 PM Stop: 6:03 PM Medication: Versed Amount: 1 mg Route: I.V. Start: 6:05 PM Stop: 6:05 PM Medication: Benadryl Amount: 25 mg Route: I.V. Start: 6:10 PM Stop: 6:10 PM Medication: Verapamil Amount: 5 mg Route: I.A. Start: 6:10 PM Stop: 6:10 PM Medication: Nitrogylcerin Amount: 200 mcg Route: I.A. Start: 6:17 PM Stop: 6:17 PM Medication: Heparin Amount: 3000 units Route: I.V. Start: 6:28 PM Stop: 6:28 PM Medication: Lasix (furosemide) Amount: 40 mg Route: I.V. I, the attending physician, have reviewed and verified all procedure medications. Yes, all medications given per verbal order History/Risk Factors Hypertension: Yes Dyslipidemia: Yes Peripheral Arterial Disease (PAD): No Myocardial Infarction (DC): No Obesity: Yes Renal Disease: No Tobacco Use: Current/Recent(w/in 1 year) Prior Interventions PCI: No CABG: No Valve Surgery: No Report Signatures Finalized by Dr Vielka Sena MD [facility] on 02/01/2024 07:00 PM
--- NOTE | 2024-02-01 17:57 | W.PM.OPSUD ---
Surgery/Procedure H&P Update DATE OF PROCEDURE: February 01, 2024 DATE H&P PERFORMED: 01/30/24 H&P UPDATE INFORMATION: I have reviewed H&P completed within last 30 days, I have examined patient prior to procedure and No changes to prior documentation PREOP DIAGNOSIS: ASHD/cardiomyopathy PRIMARY INDICATION FOR PROCEDURE: Non-ST elevation myocardial infarction/congestive heart failure/LV systolic dysfunction PLANNED PROCEDURE: Left heart catheterization with coronary angiogram and possible PCI PATIENT REASSESSED PRIOR TO SEDATION, WITH NO CHANGE NOTED: Yes PHYSICAL EXAM: alert, oriented x 3, clear to auscultation bilaterally and regular rate & rhythm AIRWAY EVAL/ANESTHESIA PLAN: normal airway, see other exam findings, ASA III, Monitored Anesthesia, Local Anesthesia, Risks, benefits & alternatives of sedation and/or procedure discussed and Patient agrees to continue as planned
--- NOTE | 2024-02-01 18:49 | PC.NURSE ---
Per FILIPE Rodriguez in [employer] laboratory technician who called Dr. Sena, heparin drip on patient to be stopped.
[2024-02-01] MEDS: atorvastatin 40 mg Tablet PO (19:25)
[2024-02-01] MEDS: acetaminophen 325 mg Tablet 650 MG PO (20:14)
[2024-02-01 20:27] LABS: Glucose Point of Care 217 mg/dL (70-110)
--- NOTE | 2024-02-01 21:42 | PC.NURSE ---
Patient extremely anxious about transfer to [facility]. Patient want to drive himself to get there faster. Encourged patient to allow EMS to provide transport for cardiac monitoring. Will continue to monitor.
--- NOTE | 2024-02-02 00:21 | PC.NURSE ---
Initiated air removal from TR band at 2030 removing 2ml of air every 15-20min until all air removed at this time. TR band removed. No s/s of bleeding or hematoma formation observed. Instructed patient on site care and restrictions. Patient verbalized understanding. Patient anxious about up coming surgery and transfer to [place]. Family at bedside. Waiting transport.
--- NOTE | 2024-02-02 00:58 | PC.NURSE ---
Patient transferred to [facility]. Report called to Lyndsay Daniels RN. Patient taken by [facility].
[2024-02-02 01:00] VITALS: BP 106/68; PULSE 98; O2SAT 93
--- NOTE | 2024-02-02 18:51 | P.TS_ITS ---
Transfer Summary Providers Date of Admission: 01/30/24 16:14 Date of Discharge/Transfer: 02/02/24 Attending Provider at Admission: Singh Saldivar MD Attending Provider at Transfer: David Chaudhari Transfer Plans: Anticipated date of transfer: 02/02/24 . 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 Diabetes mellitus complication status: without complication Qualified Code(s): E11.9 - Type 2 diabetes mellitus without complications (4) AMEENA (acute kidney injury): Status: Acute (5) Hypertension: Status: Acute Qualifiers: Hypertension type: primary hypertension Qualified Code(s): I10 - Essential (primary) hypertension (6) Dyslipidemia: Status: Acute (7) Cigarette smoker motivated to quit: Status: Acute (8) Ischemic cardiomyopathy: Status: Acute Reason for Visit Reason for Visit chest pain Hospital Course Hospital Course 59-year-old gentleman with DM2, HTN, HLD, obesity, smoking, chronic back pain, other medical problems was admitted after presenting with chest pain, which she had initially attributed to recent shoulder surgery, with finding of troponin elevation, with his symptoms, risk factors diagnosed with unstable angina on presentation, NSTEMI, with additional findings on presentation including AMEENA. No PE noted on CT but found to have concomitant bronchitis and some mild mucous plugging along with findings of CHF. He was started on treatment for NSTEMI including anticoagulation, aspirin, beta-sid, statin, was assessed by cardiology, with further assessment by echocardiogram and coronary angiography which revealed decreased ejection fraction 33%, trace TVR. Upon improvement in AMEENA, coronary angiogram was performed and revealed left main disease requiring further treatment with CABG. Arrangements were made by cardiology for transfer to [facility] for further assessment management of advanced coronary disease. Received Lasix for mild decompensated CHF. While in the hospital additionally underwent treatment for bronchitis with mild mucous plugging with expectorants, with improvement of oxygen requirement, maintaining saturations in the 90s on room air. Received stool softener for constipation. Physical Exam Const: COMMON NORMALS: patient oriented x3 and alert GENERAL APPEARANCE: cooperative ORIENTATION/CONSCIOUSNESS: Yes awake HENMT: COMMON NORMALS: oropharynx normal Neck/C-Spine: COMMON NORMALS: no JVD Resp: COMMON NORMALS: normal respiratory effort and clear to auscultation bilaterally AUSCULTATION: clear to auscultation bilaterally Cardio: COMMON NORMALS: no JVD, regular rhythm, S1 normal heart sound present, S2 normal heart sound present and No murmurs present (Cardio) RHYTHM: regular rhythm HEART SOUNDS: S1 normal heart sound present and S2 normal heart sound present GI: COMMON NORMALS: Normal to inspection, nondistended, normoactive bowel sounds present, Soft to palpation and non-tender PALPATION: Yes Soft to palpation Extremity: COMMON NORMALS: no joint enlargement and no pedal edema Neuro: COMMON NORMALS: patient oriented x3 and moves all extremities SENSORIUM/ORIENTATION: Yes alert Skin: COMMON NORMALS: no rashes or lesions noted GENERAL SKIN EXAM: no rashes or lesions noted TS Data Studies Completed and Pending Completed Studies During Hospitalization Category Date Time Status CTA chest [CT angio chest PE protcl [id number]] Stat Cat Scan 01/30/24 14:43 Completed [employer] request for service Routine Exams 02/01/24 17:20 Completed XR chest 1V portable [id number] Stat Exams 01/30/24 14:36 Completed CV. echo complete* [id number] Routine Ultrasound 01/30/24 16:52 Completed US renal BI with PV bladder Routine Ultrasound 01/31/24 09:30 Completed Laboratory Last Values WBC 7.62 10^3/uL (3.29-11.43) 01/31/24 04:19 RBC 4.43 10^6/uL (3.85-5.65) 01/31/24 04:19 Hgb 11.80 g/dL (11.27-16.99) 01/31/24 04:19 Hct 36.3 % (37-53) L 01/31/24 04:19 MCV 81.9 fl (82-101) L 01/31/24 04:19 MCH 26.6 pg (27-33) L 01/31/24 04:19 MCHC 32.5 g/dL (30-55) 01/31/24 04:19 RDW 15.5 % (12.1-15.1) H 01/31/24 04:19 Plt Count 187 10^3/cmm (157-399) 02/01/24 02:14 MPV 11.1 fL (7.4-10.4) H 01/31/24 04:19 Neut % (Auto) 63.9 % 01/31/24 04:19 Lymph % (Auto) 22.6 % 01/31/24 04:19 [place] % (Auto) 11.5 % 01/31/24 04:19 Eos % (Auto) 0.9 % 01/31/24 04:19 Baso % (Auto) 0.7 % 01/31/24 04:19 Neut # (Auto) 4.87 10^3/uL (1.8-7.7) 01/31/24 04:19 Lymph # (Auto) 1.7 10^3/uL (0.8-4.8) 01/31/24 04:19 [place] # (Auto) 0.9 10^3/uL (0.2-0.9) 01/31/24 04:19 Eos # (Auto) 0.1 10^3/uL (0.0-0.8) 01/31/24 04:19 Baso # (Auto) 0.1 10^3/uL (0.0-0.1) 01/31/24 04:19 Nucleated RBC % (auto) 0 % 01/31/24 04:19 Nucleated RBCs # 0.0 /100WBC 01/31/24 04:19 PT 15.60 SECONDS (12.1-14.9) H 01/30/24 14:51 INR 1.20 (0.8-1.2) 01/30/24 14:51 APTT 106.7 SECONDS (23.9-36.7) H D 02/01/24 10:16 Sodium 137 mmol/L (136-145) 02/01/24 08:38 Potassium 4.0 mmol/L (3.5-5.1) 02/01/24 08:38 Chloride 104 mmol/L (98-107) 02/01/24 08:38 Carbon Dioxide 21 mmol/L (22-29) L 02/01/24 08:38 Anion Gap 16.0 (5-19) 02/01/24 08:38 BUN 23 mg/dL (8-23) 02/01/24 08:38 Creatinine 1.3 mg/dL (0.7-1.2) H 02/01/24 08:38 GFR Calculation 56.1 mL/min (90-130) L 02/01/24 08:38 Glucose 190 mg/dL (65-115) H 02/01/24 08:38 POC Glucose 217 mg/dL (70-110) H 02/01/24 20:22 Estimat Average Glucose 166 01/31/24 04:19 Hemoglobin A1c 7.4 % (4.0-6.0) H 01/31/24 04:19 Calculated Osmolality 293 mOsm/kg (285-295) 02/01/24 08:38 Calcium 7.7 mg/dL (8.5-10.5) L 02/01/24 08:38 Phosphorus 4.4 mg/dL (2.5-4.5) 01/31/24 04:19 Magnesium 1.6 mg/dL (1.7-2.3) L 01/31/24 04:19 Iron 24 ug/dL (59-158) L 01/30/24 14:51 TIBC 353 mcg/dl 01/30/24 14:51 % Saturation 6.7 % (20-50) L 01/30/24 14:51 Unsat Iron Binding 329 ug/dL (112-347) 01/30/24 14:51 Total Bilirubin 0.3 mg/dL (0.15-1.2) 01/31/24 04:19 AST 24 U/L (0-40) 01/31/24 04:19 ALT 16 U/L (0-41) 01/31/24 04:19 Alkaline Phosphatase 83 U/L (40-130) 01/31/24 04:19 Troponin T Baseline 522 ng/L (0-15) H* 01/30/24 14:51 Troponin T 120 Minute 535.4 ng/L (0-15) H 01/30/24 16:35 Delta Troponin T 13.4 ABS# (0-10) H* 01/30/24 16:35 Troponin T Hi Sens 6Hr 639.2 ng/L (0-15) H 01/30/24 20:23 Troponin T Hi Sens 6Hr Delta 117.2 ng/L (0-12) H* 01/30/24 20:23 NT-Pro-B Natriuret Pep 6074 pg/mL (0-125) H 01/30/24 14:51 Total Protein 6.3 g/dL (6.6-8.7) L 01/31/24 04:19 Albumin 3.7 g/dL (3.5-5.2) 01/31/24 04:19 Globulin 2.6 g/dL (1.3-4.6) 01/31/24 04:19 Triglycerides 179 mg/dL (0-150) H 01/31/24 04:19 Cholesterol 120 mg/dL (0-200) 01/31/24 04:19 LDL Cholesterol, Calc 59 mg/dL (50-129) 01/31/24 04:19 HDL Cholesterol 25 mg/dL (60-100) L 01/31/24 04:19 LDL/HDL Ratio 2.36 RATIO (0.00-3.22) 01/31/24 04:19 Cholesterol/HDL Ratio 4.80 mg/dL (1.0-5.00) 01/31/24 04:19 Lipase 43 U/L (13-60) 01/30/24 14:51 Vitamin B12 340 pg/mL (232-1245) 01/30/24 14:51 Folate 5.4 ng/mL (4.5-32.2) 01/31/24 04:19 Procalcitonin 0.08 ng/mL (0-0.5) 01/31/24 04:19 TSH 1.38 uIU/mL (0.27-4.20) 01/30/24 14:54 Urine Color Yellow (Yellow) 01/30/24 17: Urine Appearance Clear (CLEAR) 01/30/24 17: Urine pH 5.0 (5-7) 01/30/24: Ur Specific [place] 1.022 (1.005-1.030) 01/30/24 17: Urine Protein 1+ (Negative) A 01/30/24 17: Urine Glucose (UA) Negative (Normal) 01/30/24 17: Urine Ketones Negative (Negative) 01/30/24: Urine Blood Negative (Negative) 01/30/24: Urine Nitrate Negative (Negative) 01/30/24: Urine Bilirubin Negative (Negative) 01/30/24 17:29 Urine Urobilinogen 0.2 mg/dL (Negative) 01/30/24 17: Ur Leukocyte Esterase Negative (Negative) 01/30/24 17: Urine RBC 0-2 /hpf (0-2) 01/30/24 17: Urine WBC 0-5 /hpf (0-5) 01/30/24 17:29 Ur Squamous Epith Cells 0-5 /hpf (0-5) 01/30/24 17: Amorphous Sediment Not Reportable 01/30/24 17: Urine Bacteria None seen /hpf (NONE) 01/30/24 17: Hyaline Casts 0.40 /lpf 01/30/24 17: Ur Random Sodium 76 mmol/L 01/30/24 17: Ur Random Potassium 20 mmol/L 01/30/24 17: Ur Random Chloride 83 mmol/L 01/30/24 17: Urine Creatinine 41 mg/dL (39-259) 01/30/24 17: Adenovirus (PCR) Not detected (NOT DETECT) 01/30/24 16:45 C. pneumoniae DNA (PCR) Not detected (NOT DETECT) 01/30/24 16:45 Coronavirus 229E (PCR) Not detected (NOT DETECT) 01/30/24 16:45 Human Metapneumovir PCR Not detected (NOT DETECT) 01/30/24 16:45 Influenza A (H1) PCR Not detected (NOT DETECT) 01/30/24 16:45 Influ A (H1/09) PCR Not detected (NOT DETECT) 01/30/24 16:45 Influenza A (H3) PCR Not detected (NOT DETECT) 01/30/24 16:45 Influenza Type A (PCR) Not detected (NOT DETECT) 01/30/24 16:45 Influenza Type B (PCR) Not detected (NOT DETECT) 01/30/24 16:45 M. pneumoniae (PCR) Not detected (NOT DETECT) 01/30/24 16:45 Parainfluenza 1 (PCR) Not detected (NOT DETECT) 01/30/24 16:45 Parainfluenza 2 (PCR) Not detected (NOT DETECT) 01/30/24 16:45 Parainfluenza 3 (PCR) Not detected (NOT DETECT) 01/30/24 16:45 Parainfluenza 4 (PCR) Not detected (NOT DETECT) 01/30/24 16:45 RSV Type A (PCR) Not detected (NOT DETECT) 01/30/24 16:45 RSV Type B (PCR) Not detected (NOT DETECT) 01/30/24 16:45 Entero/Rhino (PCR) Not detected (NOT DETECT) 01/30/24 16:45 SARS-CoV-2 (PCR) Not detected (NOT DETECT) 01/30/24 16:45 Radiology Impressions Chest X-Ray 01/30/24 14:36 IMPRESSION: No acute findings by plain radiographs. Please see separately dictated CT angiogram of the chest report same day. Chest CTA 01/30/24 14:43 IMPRESSION: 1. No evidence of PE and the thoracic aorta is unremarkable. 2. Mural thickening of the bilateral lower lobe bronchioles and multifocal areas of mucous plugging. Consider bronchitis. 3. Slightly prominent interstitium in the lower lung zones. Consider a component of interstitial edema. 4. Suspected hepatic cirrhosis and splenomegaly. 5. Complex cystic mass right kidney. Consider nonemergent renal ultrasound to further evaluate. 6. Extensive calcified coronary artery disease. Renal Ultrasound 01/31/24 09:30 IMPRESSION: 1. Innumerable cysts RIGHT kidney. Complete loss of the normal renal parenchyma. 2. Normal LEFT kidney. Recent Clincial Data Last Vital Signs Temp 99.1 F 02/01/24 22:29 Pulse 98 02/02/24 01:00 Resp 12 02/01/24 22:29 BP 106/68 02/02/24 01:00 Pulse Ox 93 02/02/24 01:00 O2 Del Method Room Air 02/01/24 22:29 O2 Flow Rate 3 02/01/24 20:00 Intake & Output/Weight 01/31/24 02/01/24 02/02/24 02/03/24 06:59 06:59 06:59 06:59 Intake Total 1326.589 / 4272.760 0740.511 / 2638.511 1336.75 / 1336.75 Output Total 1025 / 1025 1825 / 1825 3450 / 3450 Balance 301.589 / 301.589 813.511 / 813.511 -2113.25 / -2112.25 Weight 101.151 kg 108.091 kg 108.091 kg Vitals Last Vital Signs Temp 99.1 F 02/01/24 22:29 Pulse 98 11/20/24 01:00 Resp 12 02/01/24 22:29 BP 106/68 02/02/24 01:00 Pulse Ox 93 02/02/24 01:00 O2 Del Method Room Air 02/01/24 22:29 O2 Flow Rate 3 02/01/24 20:00 TS Medications Medications Discontinued Medications Acetaminophen (Acetaminophen 325 Mg Tablet) 650 mg PO Q6H PRN PRN Reason: Mild/Mod Pain Or Temp >/= 101 Last Admin: 02/01/24 20:14 Dose: 650 mg Hydrocodone Bitart/Acetaminophen (Hydrocodone-Acetaminophen 5-325 Mg Tablet) 1 tab PO 5XD PRN PRN Reason: pain Last Admin: 01/31/24 20:21 Dose: 1 tab Acetylcysteine (Acetylcysteine 200 Mg/Ml Sdv 4 Ml) 100 mg INHALATION Q4H.RESPIRATORY ALVARO Acetylcysteine (Acetylcysteine 200 Mg/Ml Sdv 4 Ml) 100 mg INHALATION Q6H.RESP ALVARO Last Admin: 02/01/24 21:11 Dose: 100 mg Al Hydrox/Mg Hydrox/Simethicone (Rawh-Qgy-Ewscrguqo-Mark 30 Ml Udc) 30 ml PO Q15M PRN PRN Reason: INDIGESTION Alprazolam (Alprazolam 0.5 Mg Tablet) 0.5 mg PO TID PRN PRN Reason: ANXIETY Last Admin: 02/01/24 19:25 Dose: 0.5 mg Aspirin (Aspirin 81 Mg Chew Tablet) 324 mg PO ONCE ONE Stop: 01/30/24 14:37 Last Admin: 01/30/24 14:53 Dose: 324 mg Aspirin (Aspirin 81 Mg Ec Tablet) 81 mg PO DAILY ALVARO Atorvastatin Calcium (Atorvastatin 40 Mg Tablet) 40 mg PO BEDTIME ALVARO Last Admin: 02/01/24 19:25 Dose: 40 mg Atropine Sulfate (Atropine 1 Mg/Ml Sdv 1 Ml) 0.5 mg IVP PRN PRN PRN Reason: Symptomatic bradycardia Azithromycin (Azithromycin 250 Mg Tablet) 500 mg PO DAILY ALVARO; Protocol Last Admin: 01/31/24 07:47 Dose: 500 mg Bisacodyl (Bisacodyl 5 Mg Tablet) 10 mg PO DAILY PRN; Protocol PRN Reason: Constipation (see protocol) Budesonide (Budesonide 0.5 Mg/2 Ml Neb) 0.5 mg INHALATION BID.RESPIRATORY [facility] Last Admin: 02/01/24 21:12 Dose: 0.5 mg Ceftriaxone Sodium (Ceftriaxone 1,000 Mg Sdv) 1,000 mg IVP Q24H ALVARO; Protocol Last Admin: 01/31/24 16:16 Dose: 1,000 mg Clopidogrel Bisulfate (Clopidogrel 75 Mg Tablet) 75 mg PO DAILY [facility] Last Admin: 02/01/24 08:15 Dose: 75 mg Diphenhydramine HCl (Diphenhydramine 50 Mg/Ml Sdv 1ml) Confirm Administered Dose 50 mg .ROUTE .STK-MED ONE Stop: 02/01/24 18:05 Fentanyl (Fentanyl 50 Mcg/Ml Inj 2ml) Confirm Administered Dose 100 mcg .ROUTE .STK-MED ONE Stop: 02/01/24 16:09 Fentanyl (Fentanyl 50 Mcg/Ml Inj 2ml) 50 mcg IVP PRN PRN PRN Reason: Prior to sheath removal Furosemide (Furosemide 10 Mg/Ml Sdv 4ml) 40 mg IVP ONCE ONE Stop: 01/30/24 16:19 Last Admin: 01/30/24 16:32 Dose: 40 mg Furosemide (Furosemide 10 Mg/Ml Sdv 4ml) 40 mg IVP ONCE ONE Stop: 02/01/24 09:43 Last Admin: 02/01/24 10:23 Dose: 40 mg Furosemide (Furosemide 10 Mg/Ml Sdv 10ml) Confirm Administered Dose 100 mg .ROUTE .STK-MED ONE Stop: 02/01/24 18:29 Gemfibrozil (Gemfibrozil 600 Mg Tablet) 600 mg PO BID [facility] Last Admin: 02/01/24 19:24 Dose: 600 mg Glucagon (Glucagon 1 Mg/Ml Kit 1 Ml) 1 mg IM ONCE PRN; Protocol PRN Reason: Adult Acute Hypoglycemia Nursing Prot. Guaifenesin (Guaifenesin 600 Mg Tablet) 1,200 mg PO BID [facility] Last Admin: 02/01/24 19:24 Dose: 1,200 mg Heparin Sodium (Porcine) (Heparin 5,000 Unit/Ml Inj 1 Ml) 0 unit IVP PRN PRN; Protocol PRN Reason: Heparin Weight Based Protocol -Subsequent Bolus Heparin Sodium (Porcine) (Heparin 5,000 Unit/Ml Inj 1 Ml) 0 unit IVP ONCE ONE; Protocol Stop: 01/30/24 15:49 Last Increment: 01/30/24 16:37 Dose: 5,300 unit Incremental Dosing Total Given: 5,300 unit Heparin Sodium (Porcine) (Heparin 5,000 Unit/Ml Inj 1 Ml) Confirm Administered Dose 10,000 unit .ROUTE .STK-MED ONE Stop: 02/01/24 16:10 Hydromorphone HCl (Hydromorphone 1 Mg/Ml Inj 1 Ml) 0.5 mg IVP ONCE ONE Stop: 01/30/24 14:44 Last Admin: 01/30/24 14:53 Dose: 0.5 mg Hydroxyzine Pamoate (Hydroxyzine 25 Mg Capsule) 25 mg PO QID PRN PRN Reason: ANXIETY Last Admin: 01/31/24 20:17 Dose: 25 mg Heparin Sodium/Sodium Chloride (Heparin Drip) 25,000 unit in 500 mls @ 0 mls/hr IV CONT ALVARO; Protocol Last Titration: 02/01/24 19:23 Dose: Infused Dextrose (D5w) 500 mls @ 0 mls/hr IV ONCE PRN; Protocol PRN Reason: Adult Acute Hypoglycemia Prot Dextrose (D10w) 125 mls @ 750 mls/hr IV PRN PRN; Protocol PRN Reason: Adult Acute Hypoglycemia Nursing Protocol Dextrose (D10w) 250 mls @ 1,000 mls/hr IV PRN PRN; Protocol PRN Reason: Adult Acute Hypoglycemia Nursing Protocol Magnesium Sulfate (Magnesium Sulfate Premix) 2 gm in 50 mls @ 50 mls/hr IV ONCE ONE Stop: 01/31/24 09:51 Last Infusion: 01/31/24 11:56 Dose: Infused Sodium Chloride (Sodium Chloride 0.9%) 1,000 mls @ 75 mls/hr IV .[id number] [facility] Last Admin: 01/31/24 21:23 Dose: 75 mls/hr Lidocaine HCl (Xylocaine) Confirm Administered Dose 20 mls @ as directed .ROUTE .STK-MED ONE Stop: 02/01/24 16:10 Sodium Chloride (Sodium Chloride 0.9%) Confirm Administered Dose 1,000 mls @ as directed .ROUTE .STK-MED ONE Stop: 02/01/24 16:10 Insulin Glargine (Insulin Glargine 100 Units/1 Ml) 10 unit SUBCUT BEDTIME [facility] Last Admin: 02/01/24 21:40 Dose: Not Given Insulin Human Lispro (Insulin Lispro 100 Unit/1 Ml) 0 unit SUBCUT WM&BEDTIME [facility]; Protocol Last Admin: 02/01/24 21:40 Dose: 6 unit Iohexol (Iohexol 350 Mg/Ml 500 Ml Btl (Per Ml)) 0 ml IV ONCE ONE Stop: 01/30/24 15:38 Last Admin: 01/30/24 15:37 Dose: 100 ml Ipratropium [place] (Ipratropium 0.5 Mg/2.5 Ml Neb) 0.5 mg INHALATION Q6H.RESP [facility] Last Admin: 02/01/24 21:12 Dose: 0.5 mg Lactulose (Lactulose Oral Liq 20 Gm/30 Ml Udc) 10 gm PO DAILY PRN; Protocol PRN Reason: Constipation (see protocol) Levalbuterol HCl (Levalbuterol 0.63 Mg/3 Ml Neb) 0.63 mg INHALATION Q6H.RESP [facility] Last Admin: 02/01/24 21:12 Dose: 0.63 mg Magnesium Hydroxide (Magnesium Hydroxide 30 Ml Udc) 30 ml PO DAILY PRN; Protocol PRN Reason: Constipation (see protocol) Metoprolol Tartrate (Metoprolol Tartrate 1 Mg/1 Ml Sdv 5 Ml) 5 mg IVP ONCE ONE Stop: 01/30/24 16:19 Last Admin: 01/30/24 16:41 Dose: 5 mg Metoprolol Tartrate (Metoprolol Tartrate 25 Mg Tablet) 25 mg PO BID@0900,2100 [facility] Last Admin: 02/01/24 19:30 Dose: 25 mg Midazolam HCl (Midazolam 1 Mg/Ml Inj 2 Ml) Confirm Administered Dose 2 mg .ROUTE .STK-MED ONE Stop: 02/01/24 16:10 Midazolam HCl (Midazolam 1 Mg/Ml Inj 2 Ml) Confirm Administered Dose 2 mg .ROUTE .STK-MED ONE Stop: 02/01/24 18:07 Morphine Sulfate (Morphine 4 Mg/Ml Sdv 1 Ml) 2 mg IVP Q4H PRN PRN Reason: SEVERE PAIN Naloxone HCl (Naloxone 0.4 Mg/Ml Sdv) 0.1 mg IVP Q2M PRN PRN Reason: RESPIRATORY RATE < 8/MIN Nitroglycerin (Nitroglycerin 5 Mg/Ml Sdv 10 Ml) Confirm Administered Dose 50 mg .ROUTE .STK-MED ONE Stop: 02/01/24 16:09 Nitroglycerin (Nitroglycerin 0.4 Mg Sublingual Tablet) 0.4 mg SUBLINGUAL Q5M PRN PRN Reason: CHEST PAIN Ondansetron HCl (Ondansetron 2 Mg/Ml Sdv 2 Ml) 4 mg IVP ONCE ONE Stop: 01/30/24 14:44 Last Admin: 01/30/24 14:53 Dose: 4 mg Ondansetron HCl (Ondansetron 2 Mg/Ml Sdv 2 Ml) 4 mg IVP Q6H PRN PRN Reason: vomiting, or N/V if npo Pantoprazole Sodium (Pantoprazole 40 Mg Sdv) 40 mg IVP Q24H ALVARO Last Admin: 02/01/24 15:49 Dose: 40 mg Potassium Chloride (Potassium Chloride Er 20 Meq Tablet) 20 meq PO ONCE ONE Stop: 02/01/24 09:44 Last Admin: 02/01/24 10:24 Dose: 20 meq Senna/Docusate Sodium (Sennosides-Docusate Tablet) 1 tab PO BID [facility] Last Admin: 02/01/24 19:25 Dose: 1 tab Verapamil HCl (Verapamil 2.5 Mg/Ml Inj 2ml) Confirm Administered Dose 5 mg .ROUTE .STK-MED ONE Stop: 02/01/24 16:09 Allergies codeine Adverse Reaction (Unknown, Verified 12/16/23 14:52) ADR-Nausea morphine Adverse Reaction (Unknown, Verified 12/16/23 14:52) ADR/ALGY-[place] Home Medications cetirizine 10 mg capsule (Zyrtec) 10 mg PO DAILY 05/08/19 [History Confirmed 01/30/24] clopidogrel 75 mg tablet (Plavix) 75 mg PO DAILY 05/08/19 [History Confirmed 01/30/24] glimepiride 4 mg tablet 4 mg PO BID 05/08/19 [History Confirmed 01/30/24] hydroxyzine HCl 25 mg tablet 25 mg PO TID PRN Anxiety 05/08/19 [History Confirmed 01/30/24] lisinopril 20 mg tablet 20 mg PO DAILY 05/08/19 [History Confirmed 01/30/24] metformin 1,000 mg tablet 1,000 mg PO BID 05/08/19 [History Confirmed 01/30/24] metoprolol tartrate 50 mg tablet 25 mg PO QPM 05/08/19 [History Confirmed 01/30/24] sildenafil See Rx Instructions .Route .COMPLEX PRN Erectile Dysfunction 05/08/19 [History Confirmed 01/30/24] hydrochlorothiazide 12.5 mg tablet 12.5 mg PO DAILY 06/21/19 [History Confirmed 01/30/24] pantoprazole 20 mg tablet,delayed release 20 mg PO DAILY 10/17/19 [History Confirmed 01/30/24] gemfibrozil 600 mg tablet 600 mg PO BID 02/04/21 [History Confirmed 01/30/24] icosapent ethyl 1 gram capsule (Vascepa) 2 g PO BID 02/04/21 [History Confirmed 01/30/24] hydrocodone 5 mg-acetaminophen 325 mg tablet 1 tab PO .5times a day PRN pain 30 days #150 tabs 04/10/21 [Rx Confirmed 01/30/24] insulin degludec 100 unit/mL subcutaneous solution (Tresiba U-100 Insulin) 15 unit SUBCUT DAILY 04/10/21 [History Confirmed 01/30/24] Diabetic Shoes with 3 sets of insoles #1 ea 09/30/21 [Rx Confirmed 01/30/24] Diabetic Shoes with 3 sets of insoles #1 ea 11/05/21 [Rx Confirmed 01/30/24] AFO to right #1 ea 12/14/22 [Rx Confirmed 01/30/24] oxycodone 5 mg tablet 5 mg PO Q6H PRN pain 7 days #28 tabs 10/05/23 [Rx Confirmed 01/30/24] Shoulder Immobilizer #1 ea 10/06/23 [Rx Confirmed 01/30/24] ketorolac 10 mg tablet 10 mg PO Q6H PRN pain #20 tabs 11/05/23 [Rx Confirmed 01/30/24] Discharge Plan Discharge Patient Disposition: Xfer Other Condition: Stable Prescriptions: No Action hydrochlorothiazide 12.5 mg tablet 12.5 mg PO DAILY pantoprazole 20 mg tablet,delayed release (DR/EC) 20 mg PO DAILY gemfibrozil 600 mg tablet 600 mg PO BID icosapent ethyl [Vascepa] 1 gram capsule 2 g PO BID lisinopril 20 mg tablet 20 mg PO DAILY hydroxyzine HCl 25 mg tablet 25 mg PO TID PRN (Reason: Anxiety) metformin 1,000 mg tablet 1,000 mg PO BID clopidogrel [Plavix] 75 mg tablet 75 mg PO DAILY Zyrtec 10 mg capsule 10 mg PO DAILY sildenafil See Rx Instructions .ROUTE .COMPLEX PRN (Reason: Erectile Dysfunction) Rx Instructions: per rx instructions. pt takes prn metoprolol tartrate 50 mg tablet 25 mg PO QPM glimepiride 4 mg tablet 4 mg PO BID Tresiba U-100 Insulin 100 unit/mL solution 15 unit SUBCUT DAILY hydrocodone-acetaminophen 5-325 mg tablet 1 tab PO .5times a day PRN (Reason: pain) 30 Days Qty: 150 0RF (DME) Diabetic Shoes with 3 sets of insoles See Rx Instructions .Route .MEDSUPPLY Qty: 1 0RF Rx Instructions: As directed by [facility] (DME) Diabetic Shoes with 3 sets of insoles See Rx Instructions .Route .MEDSUPPLY Qty: 1 0RF Rx Instructions: As directed by HOME (DME) Shoulder Immobilizer See Rx Instructions .Route .MEDSUPPLY Qty: 1 0RF Rx Instructions: As directed (DME) AFO to right See Rx Instructions .Route .MEDSUPPLY Qty: 1 0RF Rx Instructions: As directed by the shoheidi ruiz oxycodone 5 mg tablet 5 mg PO Q6H PRN (Reason: pain) 7 Days Qty: 28 0RF ketorolac 10 mg tablet 10 mg PO Q6H PRN (Reason: pain) Qty: 20 0RF Rx Instructions: maximum total duration of 5 days from all oral, intranasal, or parenteral formulations Discharge Orders: Discharge Order (Routine); Ordered 02/01/24 Ordered By: Anthony Ferris Transfer Attestations Time Spent in Transfer Care: greater than 30 min Quality Metrics Clinical Quality Measures [ Acute Myocardial Infaction { Clinical Trial Participant: No; Contraindication to aspirin: None; Aspirin prescribed; Contraindication to statin: None; Statin prescribed; Contraindication to PCI: Further opinion sought;}] Coding Level of Care Code 64725 Total time (in minutes) for Discharge: 45 Diagnoses Chest pain, unspecified type R07.9 Chest pain type: unspecified Non-ST elevation [place] (NSTEMI) I21.4 Type 2 diabetes mellitus without complication, without long-term current use of insulin 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
== END 2024-02-02 01:02 | disposition short-term general hospital (02) | DRG 280 ==
LOC: ER 16:24 → CSU 16:27
PROVIDERS: Internal Medicine Cardiovascular Disease; Admitting Provider Student in an Organized Health Care Education/Training Program; Emergency Provider Emergency Medicine; Visit Provider Internal Medicine
DX: I21.4 Non-ST elevation (NSTEMI) myocardial infarction (principal); I50.23 Acute on chronic systolic (congestive) heart failure; J96.01 Acute respiratory failure with hypoxia; T17.890A Other foreign object in other parts of respiratory tract causing asphyxiation, initial encounter; N17.9 Acute kidney failure, unspecified; I25.10 Atherosclerotic heart disease of native coronary artery without angina pectoris; I25.5 Ischemic cardiomyopathy; I11.0 Hypertensive heart disease with heart failure; E11.9 Type 2 diabetes mellitus without complications; E66.9 Obesity, unspecified; Z68.34 Body mass index [BMI] 34.0-34.9, adult; R00.0 Tachycardia, unspecified; Z79.02 Long term (current) use of antithrombotics/antiplatelets; Z79.84 Long term (current) use of oral hypoglycemic drugs; Z79.891 Long term (current) use of opiate analgesic; Z79.4 Long term (current) use of insulin; F17.210 Nicotine dependence, cigarettes, uncomplicated; G89.29 Other chronic pain; M54.50 Low back pain, unspecified; J40 Bronchitis, not specified as acute or chronic; F41.9 Anxiety disorder, unspecified; Z86.73 Personal history of transient ischemic attack (TIA), and cerebral infarction without residual deficits; K59.00 Constipation, unspecified
CPT/HCPCS: 36415; 36416; 71045; 71275; 76770; 76857; 80048; 80053; 80061; 81001; 82436; 82570; 82607; 82746; 82962; 83036; 83540; 83550; 83690; 83735; 83880; 84100; 84133; 84145; 84300; 84443; 84484; 85025; 85049; 85347; 85610; 85730; 86403; 87070; 87205; 87486; 87581; 87633; 93005; 93306; 93458; 94640; 96365; 96372; 96374; 96375; 96376; 99152; 99285; A9270; C1769; C1887; C1894; J0696; J1171; J1200; J1644; J1815; J1940; J2250; J2405; J2470; J3010; J3475; J3490; J7030; J7608; J7614; J7626; J7644; Q0144; Q9967

== ENCOUNTER 2024-04-27 13:35 | Inpatient (IN) | payer MEDICARE, SELFPAY ==
[2024-04-27] VITALS (7 sets, daily range): BP systolic 148–213; BP diastolic 90–119; PULSE 72–127; RESP 18–29; TEMP 36–36.5; O2SAT 93–100; BMI 34.4; BMI 33.5
--- NOTE | 2024-04-27 13:39 | ECG_ITS ---
[facility]24[facility]27 Pat Name: Radu Shetty Department: Room: Gender: Male [employer]: : 1965 Requested By: Jefe Scott Order Number: [id number] Amelia MD: JENNIFER GIL Measurements Intervals [place] Rate: 127 P: 47 TN: 161 QRS: 49 QRSD: 86 T: 73 QT: 293 QTc: 427 Interpretive Statements SINUS TACHYCARDIA NONSPECIFIC T-WAVE ABNORMALITY ABNORMAL RHYTHM ECG Compared to ECG 01/30/2024 21:20:44 No significant changes Electronically Signed On 04-29-2024 19:30:11 [employer]IX[employer] by JENNIFER GIL [email or web address]
--- NOTE | 2024-04-27 13:41 | XRR_ITS ---
PROCEDURE INFORMATION: Exam: XR Chest Exam date and time: 04/27/2024 1:52 PM Age: 59 years old Clinical indication: Dyspnea TECHNIQUE: Imaging protocol: Radiologic exam of the chest. Views: 1 view. COMPARISON: CT angio chest PE protcl [id number] 01/30/2024 3:36 PM FINDINGS: Lungs: There is vascular and interstitial prominence concerning for passive congestion. Pleural spaces: There are small to moderate-sized bilateral pleural effusions. Heart/Mediastinum: Unremarkable. No cardiomegaly. Bones/joints: There is sternal hardware. XR/XR chest 1V portable [id number] IMPRESSION: 1. There is vascular and interstitial prominence concerning for passive congestion. No focal consolidation. 2. There are small to moderate-sized bilateral pleural effusions.
[2024-04-27] MEDS: LORazepam 2 mg/mL INJ 1 mL 1 MG IVP (13:51)
[2024-04-27 13:54] LABS: Basophils # 0.2 10^3/uL (0.0-0.1); Eosinophils # 0.4 10^3/uL (0.0-0.8); Eosinophils % 2.1 %; Hematocrit 46.6 % (37-53); Lymphocytes # 4.6 10^3/uL (0.8-4.8); Mean Corpuscular HGB Conc 29.4 g/dL (30-55); Mean Corpuscular Hemoglobin 23.5 pg (27-33); Mean Corpuscular Volume 79.9 fl (82-101); Mean Platelet Volume 10.6 fL (7.4-10.4); Monocytes # 1.7 10^3/uL (0.2-0.9); Neutrophils # 9.61 10^3/uL (1.8-7.7); Neutrophils % 58.5 %; Nucleated Red Blood Cells % 0 %; Platelet Count 344 10^3/cmm (157-399); Red Blood Count 5.83 10^6/uL (3.85-5.65); Red Cell Distribution Width 19.3 % (12.1-15.1); White Blood Count 16.46 10^3/uL (3.29-11.43)
--- NOTE | 2024-04-27 14:00 | W.ED.SOB ---
HPI - SOB/Dyspnea General: Chief Complaint: Shortness of Breath/Dyspnea Stated Complaint: sob Time Seen by Provider: 04/27/24 13:41 History of Present Illness: HPI Narrative: Patient arrives via EMS with complaints of sudden onset shortness of breath while he was driving. EMS states patient's O2 sat on room air was 74% upon arrival. Upon arrival to the ER he is on 15 L per nonrebreather. Patient has a history of triple bypass around [facility]. He carotid endarterectomy on the right side 1 month ago. Manual blood pressure of 200/90 with a blood glucose of 294. Patient does have diabetes and hypertension. He was given 1 nitro and 324 mg aspirin en route. Patient appeared very anxious with a pulse of 127 respirations 29, satting 93% on nonrebreather 15 L. Patient is on Plavix. Patient does not normally wear oxygen. Patient is insulin-dependent diabetic. Related Data Home Medications ?Medication ?Instructions ?Recorded ?Confirmed cetirizine 10 mg capsule (Zyrtec) 10 mg PO DAILY 05/08/19 04/27/24 clopidogrel 75 mg tablet (Plavix) 75 mg PO DAILY 05/08/19 04/27/24 hydrochlorothiazide 12.5 mg tablet 12.5 mg PO DAILY 06/21/19 04/27/24 pantoprazole 20 mg tablet,delayed 20 mg PO DAILY 10/17/19 04/27/24 release insulin degludec 100 unit/mL 35 unit SUBCUT BEDTIME 04/10/21 04/27/24 subcutaneous solution (Tresiba U-100 Insulin) albuterol sulfate 90 mcg/actuation 2 puff inhalation Q6H PRN 04/27/24 04/27/24 aerosol inhaler Shortness Of Breath Or Wheezing allopurinol 100 mg tablet 100 mg PO DAILY 04/27/24 04/27/24 atorvastatin 80 mg tablet See Rx Instructions .Route .COMPLEX 04/27/24 04/27/24 buspirone 5 mg tablet 20 mg PO BID 04/27/24 04/27/24 cyclobenzaprine 5 mg tablet 5 mg PO DAILY 04/27/24 04/27/24 empagliflozin 10 mg tablet 10 mg PO QAM 04/27/24 04/27/24 (Jardiance) fluticasone propionate 50 2 spray intranasal DAILY 02/13/25 02/13/25 mcg/actuation nasal spray,suspension hydrocodone 5 mg-acetaminophen 325 1 tab PO Q6H PRN Pain 04/27/24 04/27/24 mg tablet metoprolol tartrate 25 mg tablet 25 mg PO BID 04/27/24 04/27/24 Previous Rx's ?Medication ?Instructions ?Recorded Diabetic Shoes with 3 sets of #1 ea 09/30/21 insoles Diabetic Shoes with 3 sets of #1 ea 11/05/21 insoles AFO to right #1 ea 12/14/22 Shoulder Immobilizer #1 ea 10/06/23 Allergies Allergy/AdvReac Type Severity Reaction Status Date / Time codeine AdvReac Unknown ADR-Nausea Verified 04/27/24 13:49 morphine AdvReac Unknown ADR/ALGY-Fl Verified 04/27/24 13:49 ushing Review of Systems General: Reports: 10 or more systems reviewed and unremarkable except in HPI and below PFSH ED PFSH: Medical History Type 2 diabetes mellitus Hypertension Cigarette smoker motivated to quit Chronic low back pain Shoulder impingement Abdominal hernia Acute right ankle pain Acute bilateral low back pain Acute pain of left shoulder Encounter for long-term opiate analgesic use Back pain with history of spinal surgery Opioid contract exists Lumbar back pain Smoker Surgical History Hx of shoulder surgery History of carpal tunnel surgery Hx of abdominal surgery Hx of oral surgery H/O sinus surgery History of lumbar surgery History of ankle surgery Family History Other Aneurysm Cancer Social History Smoking and tobacco/nicotine status: never used tobacco/nicotine Alcohol intake: current Alcohol intake frequency: few times a month Substance/Drug Use: unknown Physical Exam Const: COMMON NORMALS: no acute distress, average body habitus, patient oriented x3, no limitations, healthy appearing, alert and well nourished HENMT: COMMON NORMALS: normocephalic, atraumatic, hearing grossly normal bilaterally, external ears normal, Normal external nose present, moist oral mucous membranes and oropharynx normal HEAD & SCALP: normocephalic and atraumatic NOSE: Normal external nose present EXTERNAL EAR: Yes external ears normal Neck/C-Spine: COMMON NORMALS: full ROM, no lymphadenopathy, supple, no meningeal signs, no JVD and Thyroid normal THYROID: Thyroid normal OTHER: Healing incision over right carotid artery Chest: COMMONS NORMALS: normal inspection of the chest and normal palpation of entire chest wall OTHER: Healed midline CABG incision Resp: COMMON NORMALS: No retractions and No use of accessory muscles; negative for clear to auscultation bilaterally (Tachypneic decreased breath sounds bilaterally) AUSCULTATION: not clear to auscultation bilaterally (Tachypneic decreased breath sounds bilaterally) Cardio: COMMON NORMALS: no JVD, regular rhythm, S1 normal heart sound present, S2 normal heart sound present, No gallops present (Cardio), No clicks present (Cardio) and No murmurs present (Cardio); negative for regular rate (Mildly tachycardic) RATE: abnormal rate (Mildly tachycardic) RHYTHM: regular rhythm HEART SOUNDS: S1 normal heart sound present and S2 normal heart sound present GI: COMMON NORMALS: Normal to inspection, nondistended, normoactive bowel sounds present, Soft to palpation, non-tender, No hepatosplenomegaly present and no masses PALPATION: Yes Soft to palpation and Yes No hepatosplenomegaly present Neuro: COMMON NORMALS: patient oriented x3 SENSORIUM/ORIENTATION: Yes alert MENINGEAL SIGNS: Yes no meningeal signs Course Vital Signs: Vital signs: Vital Signs Temperature 96.8 F L 04/27/24 13:37 Pulse Rate 127 H 04/27/24 13:37 Respiratory Rate 29 H 04/27/24 13:37 Blood Pressure 213/119 04/27/24 13:37 Pulse Oximetry 93 04/27/24 13:37 Oxygen Delivery Me thod Non-Rebreather 04/27/24 13:37 Oxygen Flow Rate 15 04/27/24 13:37 MDM - SOB/Dyspnea Medical Decision Making CTA showed no PE but bilateral pleural effusions moderate, likely pulmonary edema, white count 16.4, D-dimer 0.55, viral panel negative, BNP 4688, BUN/creatinine 18 and 0.9,, patient was given 1 mg Ativan, 20 mg of hydralazine and 40 mg of IV Lasix. Able to speak in complete sentences with his nonrebreather off of his face. I discussed else with the patient. And suggested we place the patient inpatient for further diuresis patient. Patient is agreeable. Discussed this with Dr. Orellana who agreed to place patient inpatient for further evaluation and treatment. Medical Records I reviewed the patient's medical records. Lab Data I reviewed the patient's lab results. 04/27/24 13:42 04/27/24 13:42 Labs/Radiology: Radiology Impressions Chest X-Ray 04/27/24 13:41 IMPRESSION: 1. There is vascular and interstitial prominence concerning for passive congestion. No focal consolidation. 2. There are small to moderate-sized bilateral pleural effusions. Chest CTA 04/27/24 14:30 IMPRESSION: 1. No embolus. 2. Likely CHF. This includes bilateral pleural effusions. Laboratory Results WBC 16.46 10^3/uL (3.29-11.43) H 04/27/24 13:42 RBC 5.83 10^6/uL (3.85-5.65) H 04/27/24 13:42 Hgb 13.70 g/dL (11.27-16.99) 04/27/24 13:42 Hct 46.6 % (37-53) 04/27/24 13:42 MCV 79.9 fl (82-101) L 04/27/24 13:42 MCH 23.5 pg (27-33) L 04/27/24 13:42 MCHC 29.4 g/dL (30-55) L 04/27/24 13:42 RDW 19.3 % (12.1-15.1) H 04/27/24 13:42 Plt Count 344 10^3/cmm (157-399) 04/27/24 13:42 MPV 10.6 fL (7.4-10.4) H 04/27/24 13:42 Neut % (Auto) 58.5 % 04/27/24 13:42 Lymph % (Auto) 28.0 % 04/27/24 13:42 Stephenson % (Auto) 10.0 % 04/27/24 13:42 Eos % (Auto) 2.1 % 04/27/24 13:42 Baso % (Auto) 1.0 % 04/27/24 13:42 Neut # (Auto) 9.61 10^3/uL (1.8-7.7) H 04/27/24 13:42 Lymph # (Auto) 4.6 10^3/uL (0.8-4.8) 04/27/24 13:42 Stephenson # (Auto) 1.7 10^3/uL (0.2-0.9) H 04/27/24 13:42 Eos # (Auto) 0.4 10^3/uL (0.0-0.8) 04/27/24 13:42 Baso # (Auto) 0.2 10^3/uL (0.0-0.1) H 04/27/24 13:42 Nucleated RBC % (auto) 0 % 04/27/24 13:42 Nucleated RBCs # 0.0 /100WBC 04/27/24 13:42 PT 15.60 SECONDS (12.1-14.9) H 04/27/24 13:42 INR 1.15 (0.8-1.2) 04/27/24 13:42 D-Dimer 0.55 ug/mLFEU (0-0.59) 04/27/24 13:42 Specimen Type Arterial 04/27/24 14:19 Sample Site Radial, right 04/27/24 14:19 ABG pH 7.29 (7.35-7.45) L 04/27/24 14:19 ABG pCO2 54.7 mmHg (35-45) H 04/27/24 14:19 ABG pO2 58.2 mmHg (80.0-100.0) L 04/27/24 14:19 ABG PO2/FiO2 Ratio 277 04/27/24 14:19 ABG HCO3 26.3 mmol/L (22-26) H 04/27/24 14:19 ABG O2 Saturation 85.8 04/27/24 14:19 ABG Base Excess -1.2 mmol/L (-2.0-2.0) 04/27/24 14:19 Arslan Test Pos 04/27/24 14:19 A-a O2 Gradient 3.6 mmHg (5-10) L 04/27/24 14:19 Hematocrit 42.5 % (42-52) 04/27/24 14:19 Hgb O2 Saturation 82.9 % (95-100) L 04/27/24 14:19 Carboxyhemoglobin 2.3 %THgb (0.4-20.1) 04/27/24 14:19 Methemoglobin 1.1 % (0.4-1.5) 04/27/24 14:19 Total Hemoglobin 13.9 g/dL (14-18) L 04/27/24 14:19 Sodium 143.0 mmol/L (131-143) 04/27/24 14:19 Potassium 4.0 mmol/L (3.5-5.0) 04/27/24 14:19 Glucose 282.0 mg/dL (70-115) H 04/27/24 14:19 Ionized Calcium 1.3 mmol/L (1.1-1.4) 04/27/24 14:19 O2 Delivery Device Room air 04/27/24 14:19 FiO2 21.0 % 04/27/24 14:19 Petroleum Transport Driver ID [email or web address] 04/27/24 14:19 Sodium 140 mmol/L (136-145) 04/27/24 13:42 Potassium 4.6 mmol/L (3.5-5.1) 04/27/24 13:42 Chloride 101 mmol/L (98-107) 04/27/24 13:42 Carbon Dioxide 25 mmol/L (22-29) 04/27/24 13:42 Anion Gap 18.6 (5-19) 04/27/24 13:42 BUN 18 mg/dL (8-23) 04/27/24 13:42 Creatinine 0.9 mg/dL (0.7-1.2) 04/27/24 13:42 GFR Calculation 85.8 mL/min (90-130) L 04/27/24 13:42 Glucose 294 mg/dL (65-115) H 04/27/24 13:42 Calculated Osmolality 303 mOsm/kg (285-295) H 04/27/24 13:42 Calcium 9.5 mg/dL (8.5-10.5) 04/27/24 13:42 Magnesium 1.8 mg/dL (1.7-2.3) 04/27/24 13:42 Total Bilirubin 0.5 mg/dL (0.15-1.2) 04/27/24 13:42 AST 17 U/L (0-40) 04/27/24 13:42 ALT 18 U/L (0-41) 04/27/24 13:42 Alkaline Phosphatase 143 U/L (40-130) H 04/27/24 13:42 Troponin T Baseline 29 ng/L (0-15) H 04/27/24 13:42 NT-Pro-B Natriuret Pep 4688 pg/mL (0-125) H 04/27/24 13:42 Total Protein 6.8 g/dL (6.6-8.7) 04/27/24 13:42 Albumin 4.3 g/dL (3.5-5.2) 04/27/24 13:42 Globulin 2.5 g/dL (1.3-4.6) 04/27/24 13:42 Coronavirus (PCR) Negative (Negative) 04/27/24 15:03 Influenza A (PCR) Negative (Negative) 04/27/24 15:03 Influenza Type B (PCR) Negative (Negative) 04/27/24 15:03 RSV (PCR) Negative (Negative) 04/27/24 15:03 All radiology interpretation(s) finalized by discharge Discharge Plan Discharge Patient Disposition: Admitted As Inpatient Clinical Impression: Acute hypoxic respiratory failure, Hypertensive urgency CHF (congestive heart failure) Qualifiers: Heart failure type: unspecified Heart failure chronicity: unspecified Qualified Code(s): I50.9 - Heart failure, unspecified Condition: Stable Coding Level of Care Code ED Barber for Oren Small
[2024-04-27 14:04] LABS: INR 1.15 (0.8-1.2)
[2024-04-27 14:11] LABS: Troponin(5th) Baseline 29 ng/L (0-15)
[2024-04-27 14:28] LABS: Alanine Aminotransferase 18 U/L (0-41); Albumin Level 4.3 g/dL (3.5-5.2); Alkaline Phosphatase 143 U/L (40-130); Anion Gap 18.6 (5-19); Aspartate Amino Transferase 17 U/L (0-40); Blood Urea Nitrogen 18 mg/dL (8-23); Calcium 9.5 mg/dL (8.5-10.5); Carbon Dioxide 25 mmol/L (22-29); Chloride 101 mmol/L (98-107); Creatinine Clr Calc Pharmacy 106.4852; Globulin 2.5 g/dL (1.3-4.6); Glomerular Filtration Rate 85.8 mL/min (90-130); Glucose 294 mg/dL (65-115); Magnesium 1.8 mg/dL (1.7-2.3); NT Pro B Type Natriuretic Pept 4688 pg/mL (0-125); Osmolality Calculated 303 mOsm/kg (285-295); Potassium 4.6 mmol/L (3.5-5.1); Sodium 140 mmol/L (136-145); Total Bilirubin 0.5 mg/dL (0.15-1.2); Total Protein 6.8 g/dL (6.6-8.7)
[2024-04-27 14:30] LABS: ABG PCO2 54.7 mmHg (35-45); ABG PH Result 7.29 (7.35-7.45); Alveolar-Arterial Oxygen Gradi 3.6 mmHg (5-10); Arterial Blood Gas Hematocrit 42.5 % (42-52); Base Excess ABG -1.2 mmol/L (-2.0-2.0); Blood Gas Allen Test Pos; Blood Gas Sample Site Radial, right; Blood Gas Sample Type Arterial; Carboxyhemoglobin 2.3 %THgb (0.4-20.1); HCO3 ABG 26.3 mmol/L (22-26); HGB O2 Sat 82.9 % (95-100); Ionized Calcium Level - ABG 1.3 mmol/L (1.1-1.4); Methemoglobin 1.1 % (0.4-1.5); Oxygen Device ROOM AIR; Oxygen Saturation ABG 85.8; PO2 ABG 58.2 mmHg (80.0-100.0); PO2 FiO2 Ratio Arterial Blood 277; Total Hemoglobin 13.9 g/dL (14-18)
--- NOTE | 2024-04-27 14:30 | CTR_ITS ---
PROCEDURE INFORMATION: Exam: CTA Chest With Contrast Exam date and time: 04/27/2024 3:10 PM Age: 59 years old Clinical indication: Shortness of breath and tachypnea; Prior surgery; Surgery date: <1 month; Surgery type: Carotid surgery 2 weeks ago, cabg; Additional info: Dyspnea, tachypnea, tachycardia, shortness of breath TECHNIQUE: Imaging protocol: Computed tomographic angiography of the chest with contrast. Exam focused on the arteries. 3D rendering (Not supervised by radiologist): MIP and/or 3D reconstructed images were created by the technologist. Radiation optimization: All CT scans at this facility use at least one of these dose optimization techniques: automated exposure control; mA and/or kV adjustment per patient size (includes targeted exams where dose is matched to clinical indication); or iterative reconstruction. Contrast material: OMNI 350; Contrast volume: 100 ml; Contrast route: INTRAVENOUS (IV); COMPARISON: CT angio chest PE protcl [id number] 01/30/2024 3:36 PM RADIATION DOSE METRICS: Total DLP (mGy-cm): 544.65 FINDINGS: Pulmonary arteries: Normal. No pulmonary emboli. Aorta: Unremarkable. No aortic aneurysm. No aortic dissection. Lungs: Slight ground-glass infiltrates diffusely, likely mild alveolar edema due to congestive heart failure. Dependent atelectasis in each lower lobe. Pleural spaces: Moderate/large bilateral pleural effusions. Heart: Left atrial appendage clip. Coronary arteries: Coronary artery calcifications. Lymph nodes: Visible central lymph nodes are not pathologically enlarged. Bones/joints: Status post median sternotomy. Soft tissues: Unremarkable. CT/CT angio chest PE protcl [id number] IMPRESSION: 1. No embolus. 2. Likely CHF. This includes bilateral pleural effusions.
[2024-04-27 14:43] LABS: D Dimer 0.55 ug/mLFEU (0-0.59)
[2024-04-27] MEDS: iohexol 350 mg/mL 500 mL Btl (per mL) IV (15:15)
--- NOTE | 2024-04-27 15:17 | PC.PHAR ---
Patient not sure of his medications. I got a current list from Delores Taylor . Patient says he can't afford his Tresiba and Jardiance so he has been out of it.
--- NOTE | 2024-04-27 15:41 | ECG_ITS ---
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
[2024-04-27 15:48] LABS: Influenza A NEGATIVE (Negative); Influenza B NEGATIVE (Negative); Respiratory Syncytial Virus Ce NEGATIVE (Negative); SARS-CoV-2 PCR NEGATIVE (Negative)
--- NOTE | 2024-04-27 16:21 | PM.HP ---
Providers/Chief Complaint Chief Complaint: sob History of Present Illness Radu Shetty is a 59 year old male with history of diabetes, hypertension, CABG x 3 around Thanksgiving last year 2 weeks ago had right carotid endarterectomy, presented with worsening orthopnea PND shortness of breath and weight gain. Patient is stating that his symptoms got worse in the last 2 to 3 weeks, he has been more bloated, short of breath, he has not noticed any chest pain fever diarrhea or vomiting. Does not use oxygen at baseline, smokes 1 pack/week. Does not drink alcohol. Does not watch his sodium or fluid intake. Drinks 2 cup of coffee a day. In the ER he has been diagnosed with new onset CHF, he has been given IV 40 mg of Lasix, currently patient on 6 L nasal cannula Review of Systems Const: Denies: fever(s) Eyes: Denies: change in vision ENMT: Denies: throat pain Card: Reports: swelling of feet/ankles Resp: Reports: dyspnea Medications/Allergies Home Medications ?Medication ?Instructions ?Recorded ?Confirmed ?Last Taken ?Type cetirizine 10 mg capsule (Zyrtec) 10 mg PO DAILY 05/08/19 04/27/24 04/26/24 History clopidogrel 75 mg tablet (Plavix) 75 mg PO DAILY 05/08/19 04/27/24 04/27/24 History hydrochlorothiazide 12.5 mg tablet 12.5 mg PO DAILY 06/21/19 04/27/24 04/27/24 History pantoprazole 20 mg tablet,delayed 20 mg PO DAILY 10/17/19 04/27/24 04/27/24 History release insulin degludec 100 unit/mL 35 unit SUBCUT BEDTIME 04/10/21 04/27/24 01/30/24 History subcutaneous solution (Tresiba U-100 Insulin) Diabetic Shoes with 3 sets of #1 ea 09/30/21 04/27/24 Unknown Rx insoles Diabetic Shoes with 3 sets of #1 ea 11/05/21 04/27/24 Unknown Rx insoles AFO to right #1 ea 12/14/22 04/27/24 Unknown Rx Shoulder Immobilizer #1 ea 10/06/23 04/27/24 Unknown Rx albuterol sulfate 90 mcg/actuation 2 puff inhalation Q6H PRN 04/27/24 04/27/24 Unknown History aerosol inhaler Shortness Of Breath Or Wheezing allopurinol 100 mg tablet 100 mg PO DAILY 04/27/24 04/27/24 04/27/24 History atorvastatin 80 mg tablet See Rx Instructions .Route .COMPLEX 04/27/24 04/27/24 04/26/24 History buspirone 5 mg tablet 20 mg PO BID 04/27/24 04/27/24 04/27/24 07:00 History cyclobenzaprine 5 mg tablet 5 mg PO DAILY 04/27/24 04/27/24 04/27/24 History empagliflozin 10 mg tablet 10 mg PO QAM 04/27/24 04/27/24 Unknown History (Jardiance) fluticasone propionate 50 2 spray intranasal DAILY 04/27/24 04/27/24 Unknown History mcg/actuation nasal spray,suspension hydrocodone 5 mg-acetaminophen 325 1 tab PO Q6H PRN Pain 04/27/24 04/27/24 Unknown History mg tablet metoprolol tartrate 25 mg tablet 25 mg PO BID 04/27/24 04/27/24 04/27/24 History Allergies Allergy/AdvReac Type Severity Reaction Status Date / Time codeine AdvReac Unknown ADR-Nausea Verified 04/27/24 13:49 morphine AdvReac Unknown ADR/ALGY-Fl Verified 04/27/24 13:49 ushing PFSH Acute PFSH: Medical History Type 2 diabetes mellitus Hypertension Cigarette smoker motivated to quit Chronic low back pain Shoulder impingement Abdominal hernia Acute right ankle pain Acute bilateral low back pain Acute pain of left shoulder Encounter for long-term opiate analgesic use Back pain with history of spinal surgery Opioid contract exists Lumbar back pain Smoker Surgical History Hx of shoulder surgery History of carpal tunnel surgery Hx of abdominal surgery Hx of oral surgery H/O sinus surgery History of lumbar surgery History of ankle surgery Family History Other Aneurysm Cancer Social History Smoking and tobacco/nicotine status: never used tobacco/nicotine Alcohol intake: current Alcohol intake frequency: few times a month Substance/Drug Use: unknown Vitals/I&O/Wt Last Vital Signs Temp 96.8 F L 04/27/24 13:37 Pulse 127 H 04/27/24 13:37 Resp 29 H 04/27/24 13:37 BP 213/119 04/27/24 13:37 Pulse Ox 93 04/27/24 13:37 O2 Del Method Non-Rebreather 04/27/24 13:37 O2 Flow Rate 15 04/27/24 13:37 Weight last 48 hrs Weight 108.862 kg Physical Exam Narrative: Clinical signs of fluid overload Anasarca 3+ edema of lower extremity extending all the way up to abdominal wall S1, S2 Currently on 6 L nasal cannula GCS 15 Crackles at base of the lungs Nonfocal neuroexam AO x 4 GCS 15 Data 04/27/24 13:42 04/27/24 13:42 A&P Assessment and plan (1) New onset of congestive heart failure: (2) Sleep apnea: (3) Hypertension: Qualifiers: Hypertension type: primary hypertension Qualified Code(s): I10 - Essential (primary) hypertension (4) Ischemic cardiomyopathy: (5) Type 2 diabetes mellitus: Qualifiers: 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: without jail use Diabetes mellitus complication status: without complication Qualified Code(s): E11.9 - Type 2 diabetes mellitus without complications (6) Acute hypoxic respiratory failure: (7) Lumbar back pain: Plan New onset systolic CHF Previous echo showed EF of 33% January 2024 History of coronary disease CABG x 3 Recent carotid endarterectomy Patient take aspirin plan Plavix Which I will continue No active chest pain Start diuretics Lasix IV every 12 hours Repeat echo, check D-dimer No active chest pain Patient has history of sleep apnea will request BiPAP overnight because of pulm edema If patient's EF has not improved since his CABG patient will need cardiology evaluation and possible AICD recommendation Acute hypoxia currently requiring 6 L Pulm edema on x-ray Smoker, does not use oxygen at home Check respiratory panel Recent carotid endarterectomy history of CABG continue aspirin and Plavix and statin History of sleep apnea, BiPAP overnight Patient is full code Cardiac consistent carb diet Insulin with sliding scale PDMP PDMP Reviewed: Not Reviewed Attestations Medical Necessity Statement*: Anticipating more than 2 midnights patient needs evaluation and treatment for new onset CHF, hypoxia Coding Level of Care Code Acute Code for Chg Fwd Diagnoses New onset of congestive heart failure I50.9 Sleep apnea G47.30 Primary hypertension I10 Hypertension type: primary hypertension Ischemic cardiomyopathy I25.5 Type 2 diabetes mellitus without complication, without long-term current use of insulin E11.9 Diabetes mellitus jail insulin use: without jail use Diabetes mellitus complication status: without complication Acute hypoxic respiratory failure J96.01 Lumbar back pain M54.5
--- NOTE | 2024-04-27 16:23 | USCV_ITS ---
Radu Shetty Age: 59 Gender: M : 1965 Exam Date: 04/27/2024 18:41 Ordering Phys: Todd Orellana MD Technologist: SEBASTIÁN Exam Location: [facility] [place] Indication: chf History DM, HTN, CAD s/p CABG, long-term smoker continues smoking. BP: 163 / 105 HR: 99 Rhythm: Sinus Technical Quality: Adequate MEASUREMENTS (Male / Female) Normal Values 2D ECHO LV Diastolic Diameter PLAX 5.4 cm 4.2 - 5.9 / 3.9 - 5.3 cm IVS Diastolic Thickness 1.7 cm 0.6 - 1.0 / 0.6 - 0.9 cm IVS Systolic Thickness 1.9 cm LVPW Diastolic Thickness 1.6 cm 0.6 - 1.0 / 0.6 - 0.9 cm LVPW Systolic Thickness 2.3 cm LVOT Diameter 2.1 cm LV Ejection Fraction 2D Teich 41.1 % LV Ejection Fraction MOD 4C 20.8 % LV Ejection Fraction MOD 2C 26.1 % LV Ejection Fraction 2C AL 26.3 % LA Diameter 4.7 cm LA Sys Volume AL 89.1 cm cubed LA Sys Volume Index AL 37.8 cm cubed/m squared Aorta at Sinotubular Diameter 3.5 cm IVC Diameter 2.7 cm M-MODE LA Ao Ratio MM 1.4 AV Cusp Separation MM 2.0 cm DOPPLER AV Peak Velocity 162.0 cm/s LVOT Peak Velocity 90.0 cm/s AV Area Cont Eq vti 1.6 cm squared AV Area Cont Eq pk 1.9 cm squared MV Peak Velocity 110.0 cm/s MV Area PHT 6.8 cm squared Mitral E to A Ratio 1.2 TV Peak E Velocity 36.0 cm/s PV Peak Velocity 85.0 cm/s FINDINGS Left Ventricle Diffuse hypokinesia of the left ventricle with an ejection fraction of around 30%. Mildly dilated LV cavity Right Ventricle Normal right ventricular size and systolic function. Right Atrium The right atrium is normal in size. Left Atrium The left atrium is normal in size. Mitral Valve Trace mitral valve regurgitation. Moderate mitral annular calcification. Aortic Valve Thickened aortic valve. Aortic valve sclerosis. Tricuspid Valve No gross abnormalities noted Pulmonic Valve Pulmonic valve not well visualized. Pericardium Normal pericardium without effusion. Aorta Normal ascending aorta dimension. IVC Dilated IVC with normal respiratory variation. CONCLUSIONS Diffuse hypokinesia of the left ventricle with an ejection fraction of around 30%. Mildly dilated left ventricle. Trace mitral valve regurgitation. Moderate mitral annular calcification. Aortic valve sclerosis. There is no pericardial effusion. Compared to the previous study from 01/30/2024, there may not be a significant change in the LV ejection fraction Dr Vielka Sena MD [facility] (Electronically Signed) Final Date: 28 April 2024 14:44 S
[2024-04-27 16:42] LABS: Troponin 5 2HR 34.89 ng/L (0-15); Troponin 5 2HR Delta 5.89 ABS# (0-10)
[2024-04-27] MEDS: FUROsemide 10 mg/mL SDV 10mL 40 MG IVP (16:43)
[2024-04-27] MEDS: heparin 5,000 unit/mL INJ 1 mL 5000 UNIT SUBCUT (16:45)
[2024-04-27 17:28] LABS: Vitamin B12 434 pg/mL (232-1245)
[2024-04-27] MEDS: metoprolol tartrate 25 mg Tablet PO (18:19)
[2024-04-27 18:30] LABS: Glucose Point of Care 192 mg/dL (70-110)
[2024-04-27] MEDS: insulin lispro 100 unit/1 mL SUBCUT ×2 (19:13→22:04)
--- NOTE | 2024-04-27 19:36 | PC.NURSE ---
report called to [facility] med surg at 1935.
--- NOTE | 2024-04-27 19:41 | ECG_ITS ---
[facility] Test Date: 2024-04-27 Pat Name: Radu Shetty Department: Room: 276 Gender: Male Informatics Nurse: : 1965 Requested By: Jefe Scott Order Number: [id number] Amelia MD: JENNIFER GIL Measurements Intervals [place] Rate: 91 P: 34 WA: 148 QRS: 28 QRSD: 94 T: 137 QT: 385 QTc: 474 Interpretive Statements SINUS RHYTHM POSSIBLE LEFT ATRIAL ENLARGEMENT [-0.1mV P-WAVE IN V1/V2] NONSPECIFIC T-WAVE ABNORMALITY Compared to ECG 04/27/2024 15:35:15 Sinus tachycardia no longer present T-wave abnormality still present Electronically Signed On 04-29-2024 19:33:53 WILDLAND FIRE FIGHTER SPECIALIST by JENNIFER GIL [email or web address] [id number]
[2024-04-27] MEDS: ALPRAZolam 0.5 mg Tablet 0.25 MG PO (21:58)
[2024-04-27 22:05] LABS: Glucose Point of Care 266 mg/dL (70-110)
[2024-04-27 22:28] LABS: Troponin 5 6HR 40.64 ng/L (0-15); Troponin 5 6HR Delta 11.64 ng/L (0-12)
[2024-04-28] VITALS (8 sets, daily range): BP systolic 114–159; BP diastolic 72–89; PULSE 88–95; RESP 17–19; TEMP 36.4–36.9; O2SAT 91–98
[2024-04-28] MEDS: heparin 5,000 unit/mL INJ 1 mL 5000 UNIT SUBCUT ×2 (04:09→17:45)
--- NOTE | 2024-04-28 04:20 | PC.NURSE ---
pt o2 pt o2 was not on at time of vitals. this nurse replaced o2 on pt.
[2024-04-28 04:36] LABS: Basophils # 0.1 10^3/uL (0.0-0.1); Basophils % 0.7 %; Eosinophils # 0.2 10^3/uL (0.0-0.8); Eosinophils % 2.6 %; Hematocrit 39.9 % (37-53); Lymphocytes # 1.6 10^3/uL (0.8-4.8); Lymphocytes % 20.4 %; Mean Corpuscular HGB Conc 29.3 g/dL (30-55); Mean Corpuscular Hemoglobin 23.3 pg (27-33); Mean Corpuscular Volume 79.3 fl (82-101); Mean Platelet Volume 10.5 fL (7.4-10.4); Monocytes # 0.9 10^3/uL (0.2-0.9); Monocytes % 11.2 %; Neutrophils # 5.19 10^3/uL (1.8-7.7); Neutrophils % 64.7 %; Nucleated Red Blood Cells % 0 %; Platelet Count 215 10^3/cmm (157-399); Red Blood Count 5.03 10^6/uL (3.85-5.65); Red Cell Distribution Width 18.6 % (12.1-15.1); White Blood Count 8.03 10^3/uL (3.29-11.43)
[2024-04-28 04:57] LABS: Anion Gap 14.6 (5-19); Blood Urea Nitrogen 20 mg/dL (8-23); Calcium 9.4 mg/dL (8.5-10.5); Carbon Dioxide 29 mmol/L (22-29); Chloride 101 mmol/L (98-107); Creatinine Clr Calc Pharmacy 94.5828; Glucose 133 mg/dL (65-115); Magnesium 1.7 mg/dL (1.7-2.3); Osmolality Calculated 297 mOsm/kg (285-295); Phosphorus 4.3 mg/dL (2.5-4.5); Potassium 3.6 mmol/L (3.5-5.1); Sodium 141 mmol/L (136-145)
[2024-04-28] MEDS: ALPRAZolam 0.5 mg Tablet 0.25 MG PO ×3 (06:05→21:28)
[2024-04-28 06:49] LABS: Glucose Point of Care 132 mg/dL (70-110)
[2024-04-28] MEDS: aspirin 81 mg EC Tablet PO (09:31)
[2024-04-28] MEDS: metoprolol tartrate 25 mg Tablet PO ×2 (09:31→17:45)
[2024-04-28] MEDS: potassium chloride ER 20 mEq Tablet PO (09:31)
[2024-04-28] MEDS: allopurinol 100 mg Tablet PO (09:31)
[2024-04-28] MEDS: sennosides-docusate Tablet 1 TAB PO (09:32)
[2024-04-28] MEDS: clopidogrel 75 mg Tablet PO (09:32)
[2024-04-28] MEDS: pantoprazole DR 40 mg Tablet PO (09:32)
[2024-04-28 10:42] LABS: Glucose Point of Care 217 mg/dL (70-110)
--- NOTE | 2024-04-28 14:08 | PM.CONSULT ---
Providers/Reason For Consult Consulting Physician/Specialty*: NICCI Sena MD/cardiology Reason for Consult*: Patient with recent open heart surgery presenting with shortness of breath/CHF/pleural effusion Requesting Physician: Dr. Burton Attending Physician: Lisa Burton MD History of Present Illness History of Present Illness Radu Shetty is a 59 year old male with a history of atherosclerotic heart diseas, status post recent coronary bypass surgery is admitted to hospital through the emergency room, where he presented with complaints of progressive shortness of breath. He started on heart failure treatment. Apparently the patient was found to be very agitated/anxious and is wanting to go home. Consult is requested for his cardiac evaluation recommendations. This patient was admitted to hospital in January of last year with the features of a non-ST elevation myocardial infarction/unstable angina. A cardiac catheterization at that time revealed a severe three-vessel coronary artery disease including the ostium of the left main. Subsequently he was transferred to the [facility] where he underwent coronary artery bypass surgery. The details of the surgery is not known. According the patient, he had an uneventful postprocedure course. He was discharged home after 5 days or so. He went back to the surgeon for follow-up, couple of times. He was found to be stable at those times. According the patient, he been getting short of breath for the last couple of weeks. He underwent a right carotid endarterectomy 2 weeks ago. He started having symptoms of shortness of breath and fatigue since then. He did not have any chest pain. He was having a dry cough. He also been noticing swelling of the lower extremities. He was going to be in congestive heart failure with respiratory distress. He was hypoxic and hypercapnic with a pO2 in the 60s and pCO2 in the 50s. He was initially treated with a BiPAP and currently is on oxygen by room air. He has no fever, chills He has a history of hypertension, type 2 diabetes and dyslipidemia for the last more than 15 years. He has been taking his medications as prescribed. He has a history of TIA many years ago. He also has a questionable history of peripheral artery disease. No significant family history for premature atherosclerotic heart diseas. He has been smoking a pack a day for the last more than 40 years. He is trying to quit. No alcohol abuse or any other substance abuse. Medications/Allergies Home Medications ?Medication ?Instructions ?Recorded ?Confirmed ?Last Taken ?Type cetirizine 10 mg capsule (Zyrtec) 10 mg PO DAILY 05/08/19 04/27/24 04/26/24 History clopidogrel 75 mg tablet (Plavix) 75 mg PO DAILY 05/08/19 04/27/24 04/27/24 History hydrochlorothiazide 12.5 mg tablet 12.5 mg PO DAILY 06/21/19 04/27/24 04/27/24 History pantoprazole 20 mg tablet,delayed 20 mg PO DAILY 10/17/19 04/27/24 04/27/24 History release insulin degludec 100 unit/mL 35 unit SUBCUT BEDTIME 04/10/21 04/27/24 01/30/24 History subcutaneous solution (Tresiba U-100 Insulin) Diabetic Shoes with 3 sets of #1 ea 09/30/21 04/27/24 Unknown Rx insoles Diabetic Shoes with 3 sets of #1 ea 11/05/21 04/27/24 Unknown Rx insoles AFO to right #1 ea 12/14/22 04/27/24 Unknown Rx Shoulder Immobilizer #1 ea 10/06/23 04/27/24 Unknown Rx albuterol sulfate 90 mcg/actuation 2 puff inhalation Q6H PRN 04/27/24 04/27/24 Unknown History aerosol inhaler Shortness Of Breath Or Wheezing allopurinol 100 mg tablet 100 mg PO DAILY 04/27/24 04/27/24 04/27/24 History atorvastatin 80 mg tablet See Rx Instructions .Route .COMPLEX 04/27/24 04/27/24 04/26/24 History buspirone 5 mg tablet 20 mg PO BID 04/27/24 04/27/24 04/27/24 07:00 History cyclobenzaprine 5 mg tablet 5 mg PO DAILY 04/27/24 04/27/24 04/27/24 History empagliflozin 10 mg tablet 10 mg PO QAM 04/27/24 04/27/24 Unknown History (Jardiance) fluticasone propionate 50 2 spray intranasal DAILY 04/27/24 04/27/24 Unknown History mcg/actuation nasal spray,suspension hydrocodone 5 mg-acetaminophen 325 1 tab PO Q6H PRN Pain 04/27/24 04/27/24 Unknown History mg tablet metoprolol tartrate 25 mg tablet 25 mg PO BID 04/27/24 04/27/24 04/27/24 History Allergies Allergy/AdvReac Type Severity Reaction Status Date / Time codeine AdvReac Unknown ADR-Nausea Verified 04/27/24 13:49 morphine AdvReac Unknown ADR/ALGY-Fl Verified 04/27/24 13:49 ushing Current Medications Generic Name Dose Route Start Last Admin Trade Name Freq PRN Reason Stop Dose Admin Allopurinol 100 mg 04/28/24 09:00 04/28/24 09:31 Allopurinol 100 Mg Tablet PO 100 mg DAILY ALVARO Administration Alprazolam 0.25 mg 04/27/24 21:28 04/28/24 06:05 Alprazolam 0.5 Mg Tablet PO 0.25 mg TID PRN Administration ANXIETY Aspirin 81 mg 04/28/24 09:00 04/28/24 09:31 Aspirin 81 Mg Ec Tablet PO 81 mg DAILY ALVARO Administration Clopidogrel Bisulfate 75 mg 04/28/24 09:00 04/28/24 09:32 Clopidogrel 75 Mg Tablet PO 75 mg DAILY ALVARO Administration Heparin Sodium (Porcine) 5,000 unit 04/27/24 16:30 04/28/24 04:09 Heparin 5,000 Unit/Ml Inj 1 Ml SUBCUT 5,000 unit Q12H ALVARO Administration Insulin Human Lispro 0 unit 04/27/24 18:00 04/28/24 13:35 Insulin Lispro 100 Unit/1 Ml SUBCUT Not Given WM&BEDTIME [facility] Protocol Metoprolol Tartrate 25 mg 04/27/24 18:00 04/28/24 09:31 Metoprolol Tartrate 25 Mg Tablet PO 25 mg BID ALVARO Administration Pantoprazole Sodium 40 mg 04/28/24 09:00 04/28/24 09:[address] 40 Mg Tablet PO 40 mg DAILY ALVARO Administration Potassium Chloride 20 meq 04/28/24 09:00 04/28/24 09:31 Potassium Chloride Er 20 Meq Tablet PO 20 meq DAILY ALVARO Administration Senna/Docusate Sodium 1 tab 04/28/24 09:00 04/28/24 09:32 Sennosides-Docusate Tablet PO 1 tab DAILY ALVARO Administration PFSH Acute PFSH: Medical History Type 2 diabetes mellitus Hypertension Cigarette smoker motivated to quit Chronic low back pain Shoulder impingement Abdominal hernia Acute right ankle pain Acute bilateral low back pain Acute pain of left shoulder Encounter for long-term opiate analgesic use Back pain with history of spinal surgery Opioid contract exists Lumbar back pain Smoker Surgical History Hx of shoulder surgery History of carpal tunnel surgery Hx of abdominal surgery Hx of oral surgery H/O sinus surgery History of lumbar surgery History of ankle surgery Family History Other Aneurysm Cancer Social History Smoking and tobacco/nicotine status: never used tobacco/nicotine Alcohol intake: current Alcohol intake frequency: few times a month Substance/Drug Use: unknown Vitals/I&O/Wt Last Vital Signs Temp 98.2 F 04/28/24 12:00 Pulse 89 04/28/24 12:00 Resp 19 H 04/28/24 12:00 BP 138/89 04/28/24 12:00 Pulse Ox 98 04/28/24 12:00 O2 Del Method Nasal Cannula 04/28/24 12:00 O2 Flow Rate 2 04/28/24 00:00 FiO2 35 04/27/24 23:15 04/27/24 04/28/24 04/28/24 22:59 06:59 14:59 Intake Total 200 / 200 480 / 680 600 / 600 Output Total 1000 / 1000 Balance 200 / 200 -520 / -320 600 / 600 Weight last 48 hrs Weight 242 lb 8 oz Weight 233 lb 11.2 oz Weight 240 lb Physical Exam Narrative: GENERAL: The patient is alert and oriented times three. Not in any acute distress. HEENT: No significant pallor, icterus or lymphadenopathy.Oral cavity: There are no mucous membrane lesions. NECK: Trachea appears to be central. No masses noted. No JVD or thyromegaly appreciated. RESPIRATORY: Chest is symmetrical. No intercostals muscle retraction or any accessory muscle activation. There is no chest wall tenderness. Breath sounds are heard bilaterally. Scattered fine Rales in both bases. The anus rhythm sounds are diminished in the bases. BREASTS: Deferred. HEART: The heart sounds are normal. No S3 or S4. No significant murmurs. No pericardial rub ABDOMEN: No vessel pulsations or distention. No tenderness. No organomegaly appreciated. Bowel sounds are normally heard. : Deferred. RECTAL: Deferred. LYMPHATIC: No lymphadenopathy noted in the neck. EXTREMITIES: 2+ edema both lower extremities. No cyanosis MUSCULOSKELETAL: No acute joint deformities or swelling SKIN: There are no significant rashes or ecchymosis NEUROPSYCHIATRIC: The patient is alert and oriented x3. Appears to be in a good mood. No tremors or rigidity noted. Data 04/28/24 04:19 04/28/24 04:19 Other Labs: Laboratory Last Values WBC 8.03 10^3/uL (3.29-11.43) 04/28/24 04:19 RBC 5.03 10^6/uL (3.85-5.65) 04/28/24 04:19 Hgb 11.70 g/dL (11.27-16.99) 04/28/24 04:19 Hct 39.9 % (37-53) 04/28/24 04:19 MCV 79.3 fl (82-101) L 04/28/24 04:19 MCH 23.3 pg (27-33) L 04/28/24 04:19 MCHC 29.3 g/dL (30-55) L 04/28/24 04:19 RDW 18.6 % (12.1-15.1) H 04/28/24 04:19 Plt Count 215 10^3/cmm (157-399) D 04/28/24 04:19 MPV 10.5 fL (7.4-10.4) H 04/28/24 04:19 Neut % (Auto) 64.7 % 04/28/24 04:19 Lymph % (Auto) 20.4 % 04/28/24 04:19 [place] % (Auto) 11.2 % 04/28/24 04:19 Eos % (Auto) 2.6 % 04/28/24 04:19 Baso % (Auto) 0.7 % 04/28/24 04:19 Neut # (Auto) 5.19 10^3/uL (1.8-7.7) 04/28/24 04:19 Lymph # (Auto) 1.6 10^3/uL (0.8-4.8) 04/28/24 04:19 [place] # (Auto) 0.9 10^3/uL (0.2-0.9) 04/28/24 04:19 Eos # (Auto) 0.2 10^3/uL (0.0-0.8) 04/28/24 04:19 Baso # (Auto) 0.1 10^3/uL (0.0-0.1) 04/28/24 04:19 Nucleated RBC % (auto) 0 % 04/28/24 04:19 Nucleated RBCs # 0.0 /100WBC 04/28/24 04:19 PT 15.60 SECONDS (12.1-14.9) H 04/27/24 13:42 INR 1.15 (0.8-1.2) 04/27/24 13:42 D-Dimer 0.55 ug/mLFEU (0-0.59) 04/27/24 13:42 Specimen Type Arterial 04/27/24 14:19 Sample Site Radial, right 04/27/24 14:19 ABG pH 7.29 (7.35-7.45) L 04/27/24 14:19 ABG pCO2 54.7 mmHg (35-45) H 04/27/24 14:19 ABG pO2 58.2 mmHg (80.0-100.0) L 04/27/24 14:19 ABG PO2/FiO2 Ratio 277 04/27/24 14:19 ABG HCO3 26.3 mmol/L (22-26) H 04/27/24 14:19 ABG O2 Saturation 85.8 04/27/24 14:19 ABG Base Excess -1.2 mmol/L (-2.0-2.0) 04/27/24 14:19 Arslan Test Pos 04/27/24 14:19 A-a O2 Gradient 3.6 mmHg (5-10) L 04/27/24 14:19 Hematocrit 42.5 % (42-52) 04/27/24 14:19 Hgb O2 Saturation 82.9 % (95-100) L 04/27/24 14:19 Carboxyhemoglobin 2.3 %THgb (0.4-20.1) 04/27/24 14:19 Methemoglobin 1.1 % (0.4-1.5) 04/27/24 14:19 Total Hemoglobin 13.9 g/dL (14-18) L 04/27/24 14:19 Sodium 143.0 mmol/L (131-143) 04/27/24 14:19 Potassium 4.0 mmol/L (3.5-5.0) 04/27/24 14:19 Glucose 282.0 mg/dL (70-115) H 04/27/24 14:19 Ionized Calcium 1.3 mmol/L (1.1-1.4) 04/27/24 14:19 O2 Delivery Device Room air 04/27/24 14:19 FiO2 21.0 % 04/27/24 14:19 Manager Beverage ID [email or web address] 04/27/24 14:19 Sodium 141 mmol/L (136-145) 04/28/24 04:19 Potassium 3.6 mmol/L (3.5-5.1) 04/28/24 04:19 Chloride 101 mmol/L (98-107) 04/28/24 04:19 Carbon Dioxide 29 mmol/L (22-29) 04/28/24 04:19 Anion Gap 14.6 (5-19) 04/28/24 04:19 BUN 20 mg/dL (8-23) 04/28/24 04:19 Creatinine 1.0 mg/dL (0.7-1.2) 04/28/24 04:19 GFR Calculation 76.0 mL/min (90-130) L 04/28/24 04:19 Glucose 133 mg/dL (65-115) H 04/28/24 04:19 POC Glucose 217 mg/dL (70-110) H 04/28/24 10:38 Calculated Osmolality 297 mOsm/kg (285-295) H 04/28/24 04:19 Calcium 9.4 mg/dL (8.5-10.5) 04/28/24 04:19 Phosphorus 4.3 mg/dL (2.5-4.5) 04/28/24 04:19 Magnesium 1.7 mg/dL (1.7-2.3) 04/28/24 04:19 Total Bilirubin 0.5 mg/dL (0.15-1.2) 04/27/24 13:42 AST 17 U/L (0-40) 04/27/24 13:42 ALT 18 U/L (0-41) 04/27/24 13:42 Alkaline Phosphatase 143 U/L (40-130) H 04/27/24 13:42 Troponin T Baseline 29 ng/L (0-15) H 04/27/24 13:42 Troponin T 120 Minute 34.89 ng/L (0-15) H 04/27/24 16:10 Delta Troponin T 5.89 ABS# (0-10) 04/27/24 16:10 Troponin T Hi Sens 6Hr 40.64 ng/L (0-15) H 04/27/24 21:55 Troponin T Hi Sens 6Hr Delta 11.64 ng/L (0-12) 04/27/24 21:55 C-Reactive Protein 3.0 mg/L (0.0-4.9) 04/28/24 04:19 NT-Pro-B Natriuret Pep 4688 pg/mL (0-125) H 04/27/24 13:42 Total Protein 6.8 g/dL (6.6-8.7) 04/27/24 13:42 Albumin 4.3 g/dL (3.5-5.2) 04/27/24 13:42 Globulin 2.5 g/dL (1.3-4.6) 04/27/24 13:42 Vitamin B12 434 pg/mL (232-1245) 04/27/24 13:42 Coronavirus (PCR) Negative (Negative) 04/27/24 15:03 Influenza A (PCR) Negative (Negative) 04/27/24 15:03 Influenza Type B (PCR) Negative (Negative) 04/27/24 15:03 RSV (PCR) Negative (Negative) 04/27/24 15:03 EKG 1: My Interpretation: Normal sinus rhythm with possible left atrial enlargement. Diffuse nonspecific T wave changes. Other data: Echocardiogram on 04/27/2024 Diffuse hypokinesia of the left ventricle with an ejection fraction of around 30%. Mildly dilated left ventricle. Trace mitral valve regurgitation. Moderate mitral annular calcification. Aortic valve sclerosis. There is no pericardial effusion. Compared to the previous study from 01/30/2024, there may not be a significant change in the LV ejection fraction Cardiac catheterization in January of last year Around 80% distal left main disease. Moderate calcification in thedistal left main, proximal segments of the left circumflex and left anddescending artery. The left and descending artery was found to have a 30 to40% diffuse irregular narrowing in the proximal to mid segment. Dominant leftcircumflex artery was found to have an 80% ostial stenosis. Mid circumflexartery had a 70% stenosis. OM 2 had a proximal around 80% lesion. Distalcircumflex artery was found to have around 70% lesion. The first OM branch,intermedius artery was found to have around 90% ostial stenosis with moderate diffuse disease in the proximal segment. Nondominant right coronary arteryhas a 70% lesion in the one of the bifurcation branches. LVEDP of 46 mmHg. Echocardiogram on 01/30/2024 Moderate diffuse hypokinesia of the left ventricule with an ejection fraction of 33%. Mildly increased left atrial size. Moderate mitral annular calcification. Thickened aortic valve. Trace tricuspid valve regurgitation. There is no pericardial effusion. There are no intracardiac masses. No similar previous studies are available for comparison A&P Assessment and plan (1) New onset of congestive heart failure: Patient had a severe LV dysfunction by echocardiogram in January. Repeat echocardiogram from yesterday revealed ejection fraction around 30%. Apparently the patient has not been taking his diuretics or any heart failure medications. He also has severe LV systolic dysfunction myocardial be due to the heart failure. No significant arrhythmias on the monitor. Patient is reactive airway disease/COPD also are contributing factor's. (2) Ischemic cardiomyopathy: The LV ejection fraction was found to be around 30%. Patient may be started on GDMT. Patient has slightly elevated troponin T most likely from type II DC. No evidence of any acute myocardial injury. Patient may benefit from a LifeVest, when he is ready to be discharged home (3) Dyslipidemia: May continue the current medications (4) Benign hypertension: Currently normotensive. May continue on the current medications. (5) Type 2 diabetes mellitus: The blood sugar need to be closely monitored. Qualifiers: Diabetes mellitus yard rigger insulin use: without yard rigger use Diabetes mellitus complication status: without complication Qualified Code(s): E11.9 - Type 2 diabetes mellitus without complications (6) S/P carotid endarterectomy: The endarterectomy site appears to be healing fairly well. May continue the current management. (7) COPD (chronic obstructive pulmonary disease) with emphysema: Patient's ongoing smoking abuse, reactive airway disease and COPD are contributing factors for the decompensated heart failure. May continue on the bronchodilator treatment. Qualifiers: Emphysema type: unspecified Qualified Code(s): J43.9 - Emphysema, unspecified Plan We will try to get the medical records from [place]. I may start the patient on Entresto 1 tablet p.o. twice daily IV Lasix 40 mg every 8 hours x 3 Spironolactone 25 mg p.o. twice daily Potassium 20 mEq p.o. every 8 hours x 3 Jardiance 10 mg p.o. daily Jardiance Based on the clinical progress and the results of the above, further recommendations will be made Thank you for the opportunity to evaluate this patient and make these recommendations PDMP PDMP Reviewed: Not Reviewed Consult Attestations Medical Necessity Statement: Patient requires continued hospital stay for close monitoring and further management Coding Level of Care Code 73494 Diagnoses New onset of congestive heart failure I50.9 Ischemic cardiomyopathy I25.5 Dyslipidemia E78.5 Benign hypertension I10 Type 2 diabetes mellitus without complication, without long-term current use of insulin E11.9 Diabetes mellitus senior living insulin use: without yard rigger use Diabetes mellitus complication status: without complication S/P carotid endarterectomy Z98.890 Pulmonary emphysema, unspecified emphysema type J43.9 Emphysema type: unspecified
--- NOTE | 2024-04-28 14:19 | P.PN_ITS ---
Vitals/I&O/Wt Last Vital Signs Temp 98.2 F 04/28/24 12:00 Pulse 89 04/28/24 12:00 Resp 19 H 04/28/24 12:00 BP 138/89 04/28/24 12:00 Pulse Ox 98 04/28/24 12:00 O2 Del Method Nasal Cannula 04/28/24 12:00 O2 Flow Rate 2 04/28/24 00:00 FiO2 35 04/27/24 23:15 04/27/24 04/28/24 04/28/24 22:59 06:59 14:59 Intake Total 200 / 200 480 / 680 600 / 600 Output Total 1000 / 1000 Balance 200 / 200 -520 / -320 600 / 600 Weight last 48 hrs Weight 109.996 kg Weight 106.005 kg Weight 108.862 kg Physical Exam 2 Narrative: He does appear clinically fluid overloaded at this time. 3+ edema of lower extremity extending al l the way up to thighs however difficult to examine as patient is wearing jeans at this time. S1, S2 History was patient is postop into the nasal cannula however he was taken off his nasal cannula and is at room air at this time. GCS 15 No apparent crackles at base of lungs at this time Nonfocal neuroexam AO x 4 GCS 15 Data 04/28/24 04:19 04/28/24 04:19 A&P Assessment and plan (1) New onset of congestive heart failure: (2) Sleep apnea: (3) Hypertension: Qualifiers: Hypertension type: primary hypertension Qualified Code(s): I10 - Essential (primary) hypertension (4) Ischemic cardiomyopathy: (5) Type 2 diabetes mellitus: Qualifiers: Diabetes mellitus usp insulin use: without buttermaker continuous churn use Diabetes mellitus complication status: without complication Qualified Code(s): E11.9 - Type 2 diabetes mellitus without complications (6) Acute hypoxic respiratory failure: (7) Lumbar back pain: Plan New onset systolic CHF Previous echo showed EF of 33% January 2024 History of coronary disease CABG x 3 Recent carotid endarterectomy Patient take aspirin plan Plavix Which I will continue No active chest pain Start diuretics Lasix IV every 12 hours Repeat echo, check D-dimer No active chest pain Patient has history of sleep apnea will request BiPAP overnight because of pulm edema If patient's EF has not improved since his CABG patient will need cardiology evaluation and possible AICD recommendation Acute hypoxia currently requiring 6 L Pulm edema on x-ray Smoker, does not use oxygen at home Check respiratory panel Recent carotid endarterectomy history of CABG continue aspirin and Plavix and statin History of sleep apnea, BiPAP overnight Patient is full code Cardiac consistent carb diet Insulin with sliding scale 04/28/2024 Patient has bilateral pleural effusions small to moderate size as evidenced on CTA chest. He is currently on Lasix 40 IV twice daily. I would continue the same at this time. Continue BiPAP overnight because of pulmonary edema. Patient has had a CABG and carotid endarterectomy in the past. COVID influenza RSV are negative at this time. Continue aspirin Plavix atorvastatin Hold hydrochlorothiazide at this time. Continue insulin and metoprolol titrate. Consult cardiology. Echo is pending at this time. Patient repeatedly requesting to go home however I discussed with him that until his echo has resulted we cannot send him home especially when he has evidence of fluid overload. He will need IV diuresis going forward. Discussed with cardiology. PDMP PDMP Reviewed: Not Reviewed Attestations 2 Medical Necessity Statement*: Anticipating more than 2 midnights patient needs evaluation and treatment for new onset CHF, hypoxia Diagnoses New onset of congestive heart failure I50.9 Sleep apnea G47.30 Primary hypertension I10 Hypertension type: primary hypertension Ischemic cardiomyopathy I25.5 Type 2 diabetes mellitus without complication, without long-term current use of insulin E11.9 Diabetes mellitus buttermaker continuous churn insulin use: without buttermaker continuous churn use Diabetes mellitus complication status: without complication Acute hypoxic respiratory failure J96.01 Lumbar back pain M54.5
[2024-04-28 15:52] LABS: Glucose Point of Care 233 mg/dL (70-110)
[2024-04-28] MEDS: insulin lispro 100 unit/1 mL SUBCUT ×2 (17:45→21:29)
[2024-04-28] MEDS: FUROsemide 10 mg/mL SDV 10mL 40 MG IVP (20:34)
[2024-04-28 21:11] LABS: Glucose Point of Care 322 mg/dL (70-110)
[2024-04-29] VITALS (7 sets, daily range): BP systolic 112–139; BP diastolic 76–83; PULSE 83–94; RESP 17–20; TEMP 36.3–36.9; O2SAT 91–96
[2024-04-29] MEDS: heparin 5,000 unit/mL INJ 1 mL 5000 UNIT SUBCUT ×2 (04:51→17:27)
[2024-04-29 05:29] LABS: Basophils # 0.1 10^3/uL (0.0-0.1); Basophils % 0.9 %; Eosinophils # 0.3 10^3/uL (0.0-0.8); Eosinophils % 4.8 %; Hematocrit 39.8 % (37-53); Lymphocytes # 1.3 10^3/uL (0.8-4.8); Lymphocytes % 22.8 %; Mean Corpuscular HGB Conc 29.4 g/dL (30-55); Mean Corpuscular Hemoglobin 23.3 pg (27-33); Mean Corpuscular Volume 79.1 fl (82-101); Mean Platelet Volume 11.1 fL (7.4-10.4); Monocytes # 0.6 10^3/uL (0.2-0.9); Monocytes % 10.5 %; Neutrophils # 3.55 10^3/uL (1.8-7.7); Neutrophils % 60.8 %; Nucleated Red Blood Cells % 0 %; Platelet Count 170 10^3/cmm (157-399); Red Blood Count 5.03 10^6/uL (3.85-5.65); Red Cell Distribution Width 18.6 % (12.1-15.1); White Blood Count 5.83 10^3/uL (3.29-11.43)
[2024-04-29 05:45] LABS: Anion Gap 16.9 (5-19); Blood Urea Nitrogen 22 mg/dL (8-23); Calcium 8.8 mg/dL (8.5-10.5); Carbon Dioxide 26 mmol/L (22-29); Chloride 102 mmol/L (98-107); Creatinine Clr Calc Pharmacy 86.9072; Glomerular Filtration Rate 68.1 mL/min (90-130); Glucose 149 mg/dL (65-115); Magnesium 1.7 mg/dL (1.7-2.3); Osmolality Calculated 298 mOsm/kg (285-295); Potassium 3.9 mmol/L (3.5-5.1); Sodium 141 mmol/L (136-145)
[2024-04-29 06:45] LABS: Glucose Point of Care 193 mg/dL (70-110)
[2024-04-29] MEDS: insulin lispro 100 unit/1 mL SUBCUT ×4 (08:55→21:21)
[2024-04-29] MEDS: pantoprazole DR 40 mg Tablet PO (08:56)
[2024-04-29] MEDS: sennosides-docusate Tablet 1 TAB PO (08:56)
[2024-04-29] MEDS: allopurinol 100 mg Tablet PO (08:56)
[2024-04-29] MEDS: ALPRAZolam 0.5 mg Tablet 0.25 MG PO ×2 (08:56→17:28)
[2024-04-29] MEDS: clopidogrel 75 mg Tablet PO (08:57)
[2024-04-29] MEDS: metoprolol tartrate 25 mg Tablet PO ×2 (08:57→17:27)
[2024-04-29] MEDS: FUROsemide 10 mg/mL SDV 10mL 40 MG IVP ×2 (08:57→20:25)
[2024-04-29] MEDS: aspirin 81 mg EC Tablet PO (08:57)
[2024-04-29] MEDS: potassium chloride ER 20 mEq Tablet PO (08:57)
--- NOTE | 2024-04-29 10:03 | P.PN_ITS ---
Subjective 2 Subjective: Patient is feeling better. Shortness of breath improved. Vital signs are remaining stable. He is afebrile. The echocardiogram revealed LV ejection fraction 30% Medications: Medication Review Details: Current Medications Acetaminophen (Acetaminophen 500 Mg Tablet) 500 mg PO Q4H PRN PRN Reason: fever Hydrocodone Bitart/Acetaminophen (Hydrocodone-Acetaminophen 5-325 Mg Tablet) 1 tab PO Q6H PRN PRN Reason: Pain Albuterol/Ipratropium (Ipratropium-Albuterol 3 Ml Neb) 3 ml INHALATION Q6H PRN PRN Reason: SHORTNESS OF BREATH Allopurinol (Allopurinol 100 Mg Tablet) 100 mg PO DAILY REPLACED BY [facility] Last Admin: 04/29/24 08:56 Dose: 100 mg Alprazolam (Alprazolam 0.5 Mg Tablet) 0.25 mg PO TID PRN PRN Reason: ANXIETY Last Admin: 04/29/24 08:56 Dose: 0.25 mg Aspirin (Aspirin 81 Mg Ec Tablet) 81 mg PO DAILY [facility] Last Admin: 04/29/24 08:57 Dose: 81 mg Clopidogrel Bisulfate (Clopidogrel 75 Mg Tablet) 75 mg PO DAILY REPLACED BY [facility] Last Admin: 04/29/24 08:57 Dose: 75 mg Furosemide (Furosemide 10 Mg/Ml Sdv 10ml) 40 mg IVP Q12H [facility] Last Admin: 04/29/24 08:57 Dose: 40 mg Glucagon (Glucagon 1 Mg/Ml Kit 1 Ml) 1 mg IM ONCE PRN; Protocol PRN Reason: Adult Acute Hypoglycemia Nursing Prot. Heparin Sodium (Porcine) (Heparin 5,000 Unit/Ml Inj 1 Ml) 5,000 unit SUBCUT Q12H REPLACED BY [facility] Last Admin: 04/29/24 04:51 Dose: 5,000 unit Dextrose (D5w) 500 mls @ 0 mls/hr IV ONCE PRN; Protocol PRN Reason: Adult Acute Hypoglycemia Prot Dextrose (D10w) 125 mls @ 750 mls/hr IV PRN PRN; Protocol PRN Reason: Adult Acute Hypoglycemia Nursing Protocol Dextrose (D10w) 250 mls @ 1,000 mls/hr IV PRN PRN; Protocol PRN Reason: Adult Acute Hypoglycemia Nursing Protocol Insulin Human Lispro (Insulin Lispro 100 Unit/1 Ml) 0 unit SUBCUT WM&BEDTIME ALVARO; Protocol Last Admin: 04/29/24 08:55 Dose: 6 unit Metoprolol Tartrate (Metoprolol Tartrate 25 Mg Tablet) 25 mg PO BID REPLACED BY [facility] Last Admin: 04/29/24 08:57 Dose: 25 mg Ondansetron HCl (Ondansetron 2 Mg/Ml Sdv 2 Ml) 4 mg IVP Q6H PRN PRN Reason: NAUSEA AND VOMITING Pantoprazole Sodium (Pantoprazole Dr 40 Mg Tablet) 40 mg PO DAILY REPLACED BY [facility] Last Admin: 04/29/24 08:56 Dose: 40 mg Potassium Chloride (Potassium Chloride Er 20 Meq Tablet) 20 meq PO DAILY REPLACED BY [facility] Last Admin: 04/29/24 08:57 Dose: 20 meq Senna/Docusate Sodium (Sennosides-Docusate Tablet) 1 tab PO DAILY REPLACED BY [facility] Last Admin: 04/29/24 08:56 Dose: 1 tab Vitals/I&O/Wt Last Vital Signs Temp 97.4 F L 04/29/24 08:00 Pulse 94 04/29/24 08:00 Resp 18 04/29/24 08:00 BP 139/80 04/29/24 08:00 Pulse Ox 91 04/29/24 08:00 O2 Del Method Room Air 04/29/24 08:00 O2 Flow Rate 2 04/28/24 00:00 FiO2 35 04/27/24 23:15 04/28/24 04/29/24 04/29/24 22:59 06:59 14:59 Intake Total 120 / 720 360 / 360 Output Total 1230 / 1230 2700 / 3930 Balance -1110 / -510 -2700 / -3210 360 / 360 Weight last 48 hrs Weight 238 lb 12.8 oz Weight 242 lb 8 oz Weight 233 lb 11.2 oz Weight 240 lb Physical Exam 2 Narrative: GENERAL: The patient is alert and oriented times three. Not in any acute distress. HEENT: No significant pallor, icterus or lymphadenopathy.Oral cavity: There are no mucous membrane lesions. NECK: Trachea appears to be central. No masses noted. No JVD or thyromegaly appreciated. RESPIRATORY: Chest is symmetrical. No intercostals muscle retraction or any accessory muscle activation. There is no chest wall tenderness. Breath sounds are heard bilaterally. No rales or rhonchi. Breath sounds are slightly diminished at the bases BREASTS: Deferred. HEART: The heart sounds are normal. No S3 or S4. No significant murmurs. No pericardial rub ABDOMEN: No vessel pulsations or distention. No tenderness. No organomegaly appreciated. Bowel sounds are normally heard. : Deferred. RECTAL: Deferred. LYMPHATIC: No lymphadenopathy noted in the neck. EXTREMITIES: 2+ edema both lower extremities. No cyanosis MUSCULOSKELETAL: No acute joint deformities or swelling SKIN: There are no significant rashes or ecchymosis NEUROPSYCHIATRIC: The patient is alert and oriented x3. Appears to be in a good mood. No tremors or rigidity noted. Data 04/29/24 04:52 04/29/24 04:52 Other Labs: Laboratory Last Values WBC 5.83 10^3/uL (3.29-11.43) 04/29/24 04:52 RBC 5.03 10^6/uL (3.85-5.65) 04/29/24 04:52 Hgb 11.70 g/dL (11.27-16.99) 04/29/24 04:52 Hct 39.8 % (37-53) 04/29/24 04:52 MCV 79.1 fl (82-101) L 04/29/24 04:52 MCH 23.3 pg (27-33) L 04/29/24 04:52 MCHC 29.4 g/dL (30-55) L 04/29/24 04:52 RDW 18.6 % (12.1-15.1) H 04/29/24 04:52 Plt Count 170 10^3/cmm (157-399) 04/29/24 04:52 MPV 11.1 fL (7.4-10.4) H 04/29/24 04:52 Neut % (Auto) 60.8 % 04/29/24 04:52 Lymph % (Auto) 22.8 % 04/29/24 04:52 Summers % (Auto) 10.5 % 04/29/24 04:52 Eos % (Auto) 4.8 % 04/29/24 04:52 Baso % (Auto) 0.9 % 04/29/24 04:52 Neut # (Auto) 3.55 10^3/uL (1.8-7.7) 04/29/24 04:52 Lymph # (Auto) 1.3 10^3/uL (0.8-4.8) 04/29/24 04:52 Summers # (Auto) 0.6 10^3/uL (0.2-0.9) 04/29/24 04:52 Eos # (Auto) 0.3 10^3/uL (0.0-0.8) 04/29/24 04:52 Baso # (Auto) 0.1 10^3/uL (0.0-0.1) 04/29/24 04:52 Nucleated RBC % (auto) 0 % 04/29/24 04:52 Nucleated RBCs # 0.0 /100WBC 04/29/24 04:52 PT 15.60 SECONDS (12.1-14.9) H 04/27/24 13:42 INR 1.15 (0.8-1.2) 04/27/24 13:42 D-Dimer 0.55 ug/mLFEU (0-0.59) 04/27/24 13:42 Specimen Type Arterial 04/27/24 14:19 Sample Site Radial, right 04/27/24 14:19 ABG pH 7.29 (7.35-7.45) L 04/27/24 14:19 ABG pCO2 54.7 mmHg (35-45) H 04/27/24 14:19 ABG pO2 58.2 mmHg (80.0-100.0) L 04/27/24 14:19 ABG PO2/FiO2 Ratio 277 04/27/24 14:19 ABG HCO3 26.3 mmol/L (22-26) H 04/27/24 14:19 ABG O2 Saturation 85.8 04/27/24 14:19 ABG Base Excess -1.2 mmol/L (-2.0-2.0) 04/27/24 14:19 Arslan Test Pos 04/27/24 14:19 A-a O2 Gradient 3.6 mmHg (5-10) L 04/27/24 14:19 Hematocrit 42.5 % (42-52) 04/27/24 14:19 Hgb O2 Saturation 82.9 % (95-100) L 04/27/24 14:19 Carboxyhemoglobin 2.3 %THgb (0.4-20.1) 04/27/24 14:19 Methemoglobin 1.1 % (0.4-1.5) 04/27/24 14:19 Total Hemoglobin 13.9 g/dL (14-18) L 04/27/24 14:19 Sodium 143.0 mmol/L (131-143) 04/27/24 14:19 Potassium 4.0 mmol/L (3.5-5.0) 04/27/24 14:19 Glucose 282.0 mg/dL (70-115) H 04/27/24 14:19 Ionized Calcium 1.3 mmol/L (1.1-1.4) 04/27/24 14:19 O2 Delivery Device Room air 04/27/24 14:19 FiO2 21.0 % 04/27/24 14:19 Classification Control Clerk ID [email or web address] 04/27/24 14:19 Sodium 141 mmol/L (136-145) 04/29/24 04:52 Potassium 3.9 mmol/L (3.5-5.1) 04/29/24 04:52 Chloride 102 mmol/L (98-107) 04/29/24 04:52 Carbon Dioxide 26 mmol/L (22-29) 04/29/24 04:52 Anion Gap 16.9 (5-19) 04/29/24 04:52 BUN 22 mg/dL (8-23) 04/29/24 04:52 Creatinine 1.1 mg/dL (0.7-1.2) 04/29/24 04:52 GFR Calculation 68.1 mL/min (90-130) L 04/29/24 04:52 Glucose 149 mg/dL (65-115) H 04/29/24 04:52 POC Glucose 193 mg/dL (70-110) H 04/29/24 06:39 Calculated Osmolality 298 mOsm/kg (285-295) H 04/29/24 04:52 Calcium 8.8 mg/dL (8.5-10.5) 04/29/24 04:52 Phosphorus 4.3 mg/dL (2.5-4.5) 04/28/24 04:19 Magnesium 1.7 mg/dL (1.7-2.3) 04/29/24 04:52 Total Bilirubin 0.5 mg/dL (0.15-1.2) 04/27/24 13:42 AST 17 U/L (0-40) 04/27/24 13:42 ALT 18 U/L (0-41) 04/27/24 13:42 Alkaline Phosphatase 143 U/L (40-130) H 04/27/24 13:42 Troponin T Baseline 29 ng/L (0-15) H 04/27/24 13:42 Troponin T 120 Minute 34.89 ng/L (0-15) H 04/27/24 16:10 Delta Troponin T 5.89 ABS# (0-10) 04/27/24 16:10 Troponin T Hi Sens 6Hr 40.64 ng/L (0-15) H 04/27/24 21:55 Troponin T Hi Sens 6Hr Delta 11.64 ng/L (0-12) 04/27/24 21:55 C-Reactive Protein 3.0 mg/L (0.0-4.9) 04/28/24 04:19 NT-Pro-B Natriuret Pep 4688 pg/mL (0-125) H 04/27/24 13:42 Total Protein 6.8 g/dL (6.6-8.7) 04/27/24 13:42 Albumin 4.3 g/dL (3.5-5.2) 04/27/24 13:42 Globulin 2.5 g/dL (1.3-4.6) 04/27/24 13:42 Vitamin B12 434 pg/mL (232-1245) 04/27/24 13:42 Coronavirus (PCR) Negative (Negative) 04/27/24 15:03 Influenza A (PCR) Negative (Negative) 04/27/24 15:03 Influenza Type B (PCR) Negative (Negative) 04/27/24 15:03 RSV (PCR) Negative (Negative) 04/27/24 15:03 Other data: Echo on 04/27/2024 diffuse hypokinesia of the left ventricle with an ejection fraction of around 30%. Mildly dilated left ventricle. Trace mitral valve regurgitation. Moderate mitral annular calcification. Aortic valve sclerosis. There is no pericardial effusion. Compared to the previous study from 01/30/2024, there may not be a significant change in the LV ejection fraction A&P Assessment and plan (1) New onset of congestive heart failure: Seems to be responding to the current medications. May continue on the Entresto, spironolactone, Lasix and beta-blockers. (2) Ischemic cardiomyopathy: The LV ejection fraction was found to be around 30%. Patient may be started on GDMT. Patient has slightly elevated troponin T most likely from type II [place]. No evidence of any acute myocardial injury. Patient may benefit from a LifeVest, when he is ready to be discharged home (3) Dyslipidemia: May continue the current medications (4) Benign hypertension: Currently normotensive. May continue on the current medications. (5) Type 2 diabetes mellitus: The blood sugar need to be closely monitored. Qualifiers: Diabetes mellitus complication status: without complication Diabetes mellitus long term care administrator insulin use: without long term care administrator use Qualified Code(s): E11.9 - Type 2 diabetes mellitus without complications (6) S/P carotid endarterectomy: The endarterectomy site appears to be healing fairly well. May continue the current management. (7) COPD (chronic obstructive pulmonary disease) with emphysema: Patient's ongoing smoking abuse, reactive airway disease and COPD are contributing factors for the decompensated heart failure. May continue on the bronchodilator treatment. Qualifiers: Emphysema type: unspecified Qualified Code(s): J43.9 - Emphysema, unspecified Plan We will try to get the medical records from [facility]. Continue on the other current medications as it Based on the clinical progress, further recommendations will be made PDMP PDMP Reviewed: Not Reviewed Attestations 2 Medical Necessity Statement*: Patient requires continued hospital stay for close monitoring and further management Coding Level of Care Code Acute Code for g Fwd Diagnoses New onset of congestive heart failure I50.9 Ischemic cardiomyopathy I25.5 Dyslipidemia E78.5 Benign hypertension I10 Type 2 diabetes mellitus without complication, without long-term current use of insulin E11.9 Diabetes mellitus complication status: without complication Diabetes mellitus usp insulin use: without long term care administrator use S/P carotid endarterectomy Z98.890 Pulmonary emphysema, unspecified emphysema type J43.9 Emphysema type: unspecified
[2024-04-29 11:43] LABS: Glucose Point of Care 293 mg/dL (70-110)
[2024-04-29] MEDS: sacubitril/valsartan 24-26 mg Tablet 1 EACH PO ×2 (12:25→17:27)
[2024-04-29] MEDS: spironolactone 25 mg Tablet PO (12:25)
[2024-04-29] MEDS: acetaminophen 500 mg Tablet PO ×2 (12:31→21:20)
--- NOTE | 2024-04-29 14:23 | PM.PN ---
Subjective Subjective: seen today he is starting to feel better -4L since admission Vitals/I&O/Wt Last Vital Signs Temp 97.4 F L 04/29/24 08:00 Pulse 87 04/29/24 11:50 Resp 20 H 04/29/24 11:50 BP 128/83 04/29/24 11:50 Pulse Ox 96 04/29/24 11:50 O2 Del Method Room Air 04/29/24 11:50 O2 Flow Rate 2 04/28/24 00:00 FiO2 35 04/27/24 23:15 04/28/24 04/29/24 04/29/24 22:59 06:59 14:59 Intake Total 120 / 720 600 / 600 Output Total 1230 / 1230 2700 / 3930 1200 / 1200 Balance -1110 / -510 -2700 / -3210 -600 / -600 Weight last 48 hrs Weight 108.318 kg Weight 109.996 kg Weight 106.005 kg Physical Exam Narrative: 2+ edema b/l LE, improved compared to yesterday S1, S2 on room air lungs clear to ausculation GCS 15 No apparent crackles at base of lungs at this time Nonfocal neuroexam AO x 4 GCS 15 Data 04/29/24 04:52 04/29/24 04:52 A&P Assessment and plan (1) New onset of congestive heart failure: (2) Sleep apnea: (3) Hypertension: Qualifiers: Hypertension type: primary hypertension Qualified Code(s): I10 - Essential (primary) hypertension (4) Ischemic cardiomyopathy: (5) Type 2 diabetes mellitus: Qualifiers: Diabetes mellitus rodent exterminator insulin use: without rodent exterminator use Diabetes mellitus complication status: without complication Qualified Code(s): E11.9 - Type 2 diabetes mellitus without complications (6) Acute hypoxic respiratory failure: (7) Lumbar back pain: Plan New onset systolic CHF Previous echo showed EF of 33% January 2024 History of coronary disease CABG x 3 Recent carotid endarterectomy Patient take aspirin plan Plavix Which I will continue No active chest pain Start diuretics Lasix IV every 12 hours Repeat echo, check D-dimer No active chest pain Patient has history of sleep apnea will request BiPAP overnight because of pulm edema If patient's EF has not improved since his CABG patient will need cardiology evaluation and possible AICD recommendation Acute hypoxia currently requiring 6 L Pulm edema on x-ray Smoker, does not use oxygen at home Check respiratory panel Recent carotid endarterectomy history of CABG continue aspirin and Plavix and statin History of sleep apnea, BiPAP overnight Patient is full code Cardiac consistent carb diet Insulin with sliding scale 04/28/2024 Patient has bilateral pleural effusions small to moderate size as evidenced on CTA chest. He is currently on Lasix 40 IV twice daily. I would continue the same at this time. Continue BiPAP overnight because of pulmonary edema. Patient has had a CABG and carotid endarterectomy in the past. COVID influenza RSV are negative at this time. Continue aspirin Plavix atorvastatin Hold hydrochlorothiazide at this time. Continue insulin and metoprolol titrate. Consult cardiology. Echo is pending at this time. Patient repeatedly requesting to go home however I discussed with him that until his echo has resulted we cannot send him home especially when he has evidence of fluid overload. He will need IV diuresis going forward. Discussed with cardiology. 04/29/2024 Continue IV diuresis continue potassium Continue aspirin Plavix atorvastatin Hold hydrochlorothiazide at this time. Continue insulin and metoprolol titrate. will need lifevest at discharge he would like to setup with dr guidry as speech therapist technician PDMP PDMP Reviewed: Not Reviewed Attestations Medical Necessity Statement*: Patient requires continued hospital stay for close monitoring and further management Diagnoses New onset of congestive heart failure I50.9 Sleep apnea G47.30 Primary hypertension I10 Hypertension type: primary hypertension Ischemic cardiomyopathy I25.5 Type 2 diabetes mellitus without complication, without long-term current use of insulin E11.9 Diabetes mellitus rodent exterminator insulin use: without rodent exterminator use Diabetes mellitus complication status: without complication Acute hypoxic respiratory failure J96.01 Lumbar back pain M54.5
[2024-04-29 16:59] LABS: Glucose Point of Care 247 mg/dL (70-110)
[2024-04-29 21:01] LABS: Glucose Point of Care 269 mg/dL (70-110)
[2024-04-30] VITALS (8 sets, daily range): BP systolic 105–151; BP diastolic 64–97; PULSE 84–95; RESP 16–18; TEMP 36.3–36.9; O2SAT 91–98
[2024-04-30] MEDS: heparin 5,000 unit/mL INJ 1 mL 5000 UNIT SUBCUT ×2 (03:59→17:36)
[2024-04-30 05:33] LABS: Basophils # 0.1 10^3/uL (0.0-0.1); Basophils % 0.9 %; Eosinophils # 0.3 10^3/uL (0.0-0.8); Lymphocytes # 1.4 10^3/uL (0.8-4.8); Lymphocytes % 25.2 %; Mean Corpuscular HGB Conc 29.3 g/dL (30-55); Mean Corpuscular Hemoglobin 23.2 pg (27-33); Mean Platelet Volume 11.3 fL (7.4-10.4); Monocytes # 0.6 10^3/uL (0.2-0.9); Monocytes % 11.3 %; Neutrophils % 57.2 %; Nucleated Red Blood Cells % 0 %; Platelet Count 239 10^3/cmm (157-399); Red Blood Count 5.44 10^6/uL (3.85-5.65); Red Cell Distribution Width 18.4 % (12.1-15.1); White Blood Count 5.59 10^3/uL (3.29-11.43)
[2024-04-30 05:54] LABS: Alanine Aminotransferase 18 U/L (0-41); Albumin Level 3.9 g/dL (3.5-5.2); Alkaline Phosphatase 123 U/L (40-130); Aspartate Amino Transferase 18 U/L (0-40); Blood Urea Nitrogen 24 mg/dL (8-23); Calcium 8.7 mg/dL (8.5-10.5); Carbon Dioxide 24 mmol/L (22-29); Chloride 102 mmol/L (98-107); Globulin 2.8 g/dL (1.3-4.6); Glomerular Filtration Rate 68.1 mL/min (90-130); Glucose 230 mg/dL (65-115); Magnesium 1.9 mg/dL (1.7-2.3); Osmolality Calculated 301 mOsm/kg (285-295); Sodium 140 mmol/L (136-145); Total Bilirubin 0.4 mg/dL (0.15-1.2); Total Protein 6.7 g/dL (6.6-8.7)
[2024-04-30 06:31] LABS: Glucose Point of Care 212 mg/dL (70-110)
[2024-04-30] MEDS: spironolactone 25 mg Tablet PO (08:49)
[2024-04-30] MEDS: insulin lispro 100 unit/1 mL SUBCUT ×4 (08:49→21:04)
[2024-04-30] MEDS: potassium chloride ER 20 mEq Tablet PO (08:50)
[2024-04-30] MEDS: ALPRAZolam 0.5 mg Tablet 0.25 MG PO ×2 (08:50→17:34)
[2024-04-30] MEDS: sacubitril/valsartan 24-26 mg Tablet 1 EACH PO ×2 (08:50→17:34)
[2024-04-30] MEDS: FUROsemide 10 mg/mL SDV 10mL 40 MG IVP (08:50)
[2024-04-30] MEDS: clopidogrel 75 mg Tablet PO (08:50)
[2024-04-30] MEDS: aspirin 81 mg EC Tablet PO (08:50)
[2024-04-30] MEDS: sennosides-docusate Tablet 1 TAB PO ×2 (08:50→22:22)
[2024-04-30] MEDS: pantoprazole DR 40 mg Tablet PO (08:50)
[2024-04-30] MEDS: allopurinol 100 mg Tablet PO (08:50)
[2024-04-30] MEDS: metoprolol tartrate 25 mg Tablet PO ×2 (08:50→17:34)
--- NOTE | 2024-04-30 09:39 | PM.PN ---
Subjective Subjective: Patient is feeling much better. He is tolerating medication so far well. No chest pain or shortness of breath. Vital signs are stable. Medications: Medication Review Details: Current Medications Acetaminophen (Acetaminophen 500 Mg Tablet) 500 mg PO Q4H PRN PRN Reason: fever Last Admin: 04/29/24 21:20 Dose: 500 mg Hydrocodone Bitart/Acetaminophen (Hydrocodone-Acetaminophen 5-325 Mg Tablet) 1 tab PO Q6H PRN PRN Reason: Pain Albuterol/Ipratropium (Ipratropium-Albuterol 3 Ml Neb) 3 ml INHALATION Q6H PRN PRN Reason: SHORTNESS OF BREATH Allopurinol (Allopurinol 100 Mg Tablet) 100 mg PO DAILY [facility] Last Admin: 04/30/24 08:50 Dose: 100 mg Alprazolam (Alprazolam 0.5 Mg Tablet) 0.25 mg PO TID PRN PRN Reason: ANXIETY Last Admin: 04/30/24 08:50 Dose: 0.25 mg Aspirin (Aspirin 81 Mg Ec Tablet) 81 mg PO DAILY [facility] Last Admin: 04/30/24 08:50 Dose: 81 mg Clopidogrel Bisulfate (Clopidogrel 75 Mg Tablet) 75 mg PO DAILY [facility] Last Admin: 04/30/24 08:50 Dose: 75 mg Furosemide (Furosemide 10 Mg/Ml Sdv 10ml) 40 mg IVP Q12H [facility] Last Admin: 04/30/24 08:50 Dose: 40 mg Glucagon (Glucagon 1 Mg/Ml Kit 1 Ml) 1 mg IM ONCE PRN; Protocol PRN Reason: Adult Acute Hypoglycemia Nursing Prot. Heparin Sodium (Porcine) (Heparin 5,000 Unit/Ml Inj 1 Ml) 5,000 unit SUBCUT Q12H [facility] Last Admin: 04/30/24 03:59 Dose: 5,000 unit Dextrose (D5w) 500 mls @ 0 mls/hr IV ONCE PRN; Protocol PRN Reason: Adult Acute Hypoglycemia Prot Dextrose (D10w) 125 mls @ 750 mls/hr IV PRN PRN; Protocol PRN Reason: Adult Acute Hypoglycemia Nursing Protocol Dextrose (D10w) 250 mls @ 1,000 mls/hr IV PRN PRN; Protocol PRN Reason: Adult Acute Hypoglycemia Nursing Protocol Insulin Human Lispro (Insulin Lispro 100 Unit/1 Ml) 0 unit SUBCUT WM&BEDTIME [facility]; Protocol Last Admin: 04/30/24 08:49 Dose: 6 unit Metoprolol Tartrate (Metoprolol Tartrate 25 Mg Tablet) 25 mg PO BID [facility] Last Admin: 04/30/24 08:50 Dose: 25 mg Ondansetron HCl (Ondansetron 2 Mg/Ml Sdv 2 Ml) 4 mg IVP Q6H PRN PRN Reason: NAUSEA AND VOMITING Pantoprazole Sodium (Pantoprazole Dr 40 Mg Tablet) 40 mg PO DAILY [facility] Last Admin: 04/30/24 08:50 Dose: 40 mg Potassium Chloride (Potassium Chloride Er 20 Meq Tablet) 20 meq PO DAILY [facility] Last Admin: 04/30/24 08:50 Dose: 20 meq Sacubitril/Valsartan (Sacubitril/Valsartan 24-26 Mg Tablet) 1 each PO BID [facility] Last Admin: 04/30/24 08:50 Dose: 1 each Senna/Docusate Sodium (Sennosides-Docusate Tablet) 1 tab PO DAILY [facility] Last Admin: 04/30/24 08:50 Dose: 1 tab Spironolactone (Spironolactone 25 Mg Tablet) 25 mg PO DAILY [facility] Last Admin: 04/30/24 08:49 Dose: 25 mg Vitals/I&O/Wt Last Vital Signs Temp 97.4 F L 04/30/24 07:48 Pulse 95 04/30/24 08:41 Resp 16 04/30/24 08:41 BP 151/97 04/30/24 07:48 Pulse Ox 98 04/30/24 08:41 O2 Del Method Room Air 04/30/24 08:41 O2 Flow Rate 2 04/28/24 00:00 FiO2 35 04/27/24 23:15 04/29/24 04/30/24 04/30/24 22:59 06:59 14:59 Intake Total 480 / 480 Output Total 850 / 2050 2400 / 4450 Balance -850 / -1450 -2400 / -3850 480 / 480 Weight last 48 hrs Weight 239 lb 9.6 oz Weight 238 lb 12.8 oz Physical Exam Narrative: GENERAL: The patient is alert and oriented times three. Not in any acute distress. HEENT: No significant pallor, icterus or lymphadenopathy.Oral cavity: There are no mucous membrane lesions. NECK: Trachea appears to be central. No masses noted. No JVD or thyromegaly appreciated. RESPIRATORY: Chest is symmetrical. No intercostals muscle retraction or any accessory muscle activation. There is no chest wall tenderness. Breath sounds are heard bilaterally. No rales or rhonchi. Breath sounds are slightly diminished at the bases BREASTS: Deferred. HEART: The heart sounds are normal. No S3 or S4. No significant murmurs. No pericardial rub ABDOMEN: No vessel pulsations or distention. No tenderness. No organomegaly appreciated. Bowel sounds are normally heard. : Deferred. RECTAL: Deferred. LYMPHATIC: No lymphadenopathy noted in the neck. EXTREMITIES: 2+ edema both lower extremities. No cyanosis MUSCULOSKELETAL: No acute joint deformities or swelling SKIN: There are no significant rashes or ecchymosis NEUROPSYCHIATRIC: The patient is alert and oriented x3. Appears to be in a good mood. No tremors or rigidity noted. Data 04/30/24 05:02 04/30/24 05:02 Other Labs: Laboratory Last Values WBC 5.59 10^3/uL (3.29-11.43) 04/30/24 05:02 RBC 5.44 10^6/uL (3.85-5.65) 04/30/24 05:02 Hgb 12.60 g/dL (11.27-16.99) 04/30/24 05:02 Hct 43.0 % (37-53) 04/30/24 05:02 MCV 79.0 fl (82-101) L 04/30/24 05:02 MCH 23.2 pg (27-33) L 04/30/24 05:02 MCHC 29.3 g/dL (30-55) L 04/30/24 05:02 RDW 18.4 % (12.1-15.1) H 04/30/24 05:02 Plt Count 239 10^3/cmm (157-399) D 04/30/24 05:02 MPV 11.3 fL (7.4-10.4) H 04/30/24 05:02 Neut % (Auto) 57.2 % 04/30/24 05:02 Lymph % (Auto) 25.2 % 04/30/24 05:02 Fleming % (Auto) 11.3 % 04/30/24 05:02 Eos % (Auto) 5.0 % 04/30/24 05:02 Baso % (Auto) 0.9 % 04/30/24 05:02 Neut # (Auto) 3.20 10^3/uL (1.8-7.7) 04/30/24 05:02 Lymph # (Auto) 1.4 10^3/uL (0.8-4.8) 04/30/24 05:02 Fleming # (Auto) 0.6 10^3/uL (0.2-0.9) 04/30/24 05:02 Eos # (Auto) 0.3 10^3/uL (0.0-0.8) 04/30/24 05:02 Baso # (Auto) 0.1 10^3/uL (0.0-0.1) 04/30/24 05:02 Nucleated RBC % (auto) 0 % 04/30/24 05:02 Nucleated RBCs # 0.0 /100WBC 04/30/24 05:02 PT 15.60 SECONDS (12.1-14.9) H 04/27/24 13:42 INR 1.15 (0.8-1.2) 04/27/24 13:42 D-Dimer 0.55 ug/mLFEU (0-0.59) 04/27/24 13:42 Specimen Type Arterial 04/27/24 14:19 Sample Site Radial, right 04/27/24 14:19 ABG pH 7.29 (7.35-7.45) L 04/27/24 14:19 ABG pCO2 54.7 mmHg (35-45) H 04/27/24 14:19 ABG pO2 58.2 mmHg (80.0-100.0) L 04/27/24 14:19 ABG PO2/FiO2 Ratio 277 04/27/24 14:19 ABG HCO3 26.3 mmol/L (22-26) H 04/27/24 14:19 ABG O2 Saturation 85.8 04/27/24 14:19 ABG Base Excess -1.2 mmol/L (-2.0-2.0) 04/27/24 14:19 Arslan Test Pos 04/27/24 14:19 A-a O2 Gradient 3.6 mmHg (5-10) L 04/27/24 14:19 Hematocrit 42.5 % (42-52) 04/27/24 14:19 Hgb O2 Saturation 82.9 % (95-100) L 04/27/24 14:19 Carboxyhemoglobin 2.3 %THgb (0.4-20.1) 04/27/24 14:19 Methemoglobin 1.1 % (0.4-1.5) 04/27/24 14:19 Total Hemoglobin 13.9 g/dL (14-18) L 04/27/24 14:19 Sodium 143.0 mmol/L (131-143) 04/27/24 14:19 Potassium 4.0 mmol/L (3.5-5.0) 04/27/24 14:19 Glucose 282.0 mg/dL (70-115) H 04/27/24 14:19 Ionized Calcium 1.3 mmol/L (1.1-1.4) 04/27/24 14:19 O2 Delivery Device Room air 04/27/24 14:19 FiO2 21.0 % 04/27/24 14:19 Glass Science Engineer ID [email or web address] 04/27/24 14:19 Sodium 140 mmol/L (136-145) 04/30/24 05:02 Potassium 4.0 mmol/L (3.5-5.1) 04/30/24 05:02 Chloride 102 mmol/L (98-107) 04/30/24 05:02 Carbon Dioxide 24 mmol/L (22-29) 04/30/24 05:02 Anion Gap 18.0 (5-19) 04/30/24 05:02 BUN 24 mg/dL (8-23) H 04/30/24 05:02 Creatinine 1.1 mg/dL (0.7-1.2) 04/30/24 05:02 GFR Calculation 68.1 mL/min (90-130) L 04/30/24 05:02 Glucose 230 mg/dL (65-115) H 04/30/24 05:02 POC Glucose 334 mg/dL (70-110) H 04/30/24 10:52 Calculated Osmolality 301 mOsm/kg (285-295) H 04/30/24 05:02 Calcium 8.7 mg/dL (8.5-10.5) 04/30/24 05:02 Phosphorus 4.3 mg/dL (2.5-4.5) 04/28/24 04:19 Magnesium 1.9 mg/dL (1.7-2.3) 04/30/24 05:02 Total Bilirubin 0.4 mg/dL (0.15-1.2) 04/30/24 05:02 AST 18 U/L (0-40) 04/30/24 05:02 ALT 18 U/L (0-41) 04/30/24 05:02 Alkaline Phosphatase 123 U/L (40-130) 04/30/24 05:02 Troponin T Baseline 29 ng/L (0-15) H 04/27/24 13:42 Troponin T 120 Minute 34.89 ng/L (0-15) H 04/27/24 16:10 Delta Troponin T 5.89 ABS# (0-10) 04/27/24 16:10 Troponin T Hi Sens 6Hr 40.64 ng/L (0-15) H 04/27/24 21:55 Troponin T Hi Sens 6Hr Delta 11.64 ng/L (0-12) 04/27/24 21:55 C-Reactive Protein 3.0 mg/L (0.0-4.9) 04/28/24 04:19 NT-Pro-B Natriuret Pep 4688 pg/mL (0-125) H 04/27/24 13:42 Total Protein 6.7 g/dL (6.6-8.7) 04/30/24 05:02 Albumin 3.9 g/dL (3.5-5.2) 04/30/24 05:02 Globulin 2.8 g/dL (1.3-4.6) 04/30/24 05:02 Vitamin B12 434 pg/mL (232-1245) 04/27/24 13:42 Coronavirus (PCR) Negative (Negative) 04/27/24 15:03 Influenza A (PCR) Negative (Negative) 04/27/24 15:03 Influenza Type B (PCR) Negative (Negative) 04/27/24 15:03 RSV (PCR) Negative (Negative) 04/27/24 15:03 A&P Assessment and plan (1) New onset of congestive heart failure: Seems to be responding to the current medications. May continue on the Entresto, spironolactone, Lasix and beta-blockers. I may switch the IV Lasix to p.o. 40 mg p.o. twice daily. (2) Ischemic cardiomyopathy: The LV ejection fraction was found to be around 30%. Patient may be started on GDMT. Patient has slightly elevated troponin T most likely from type II NE. No evidence of any acute myocardial injury. Patient may benefit from a LifeVest, this was discussed in detail with the patient. He is willing to take it. LifeVest was ordered yesterday. It is pending (3) Dyslipidemia: May continue the current medications (4) Benign hypertension: Currently normotensive. May continue on the current medications. (5) Type 2 diabetes mellitus: The blood sugar need to be closely monitored. Qualifiers: Diabetes mellitus assisted insulin use: without assisted use Diabetes mellitus complication status: without complication Qualified Code(s): E11.9 - Type 2 diabetes mellitus without complications (6) S/P carotid endarterectomy: The endarterectomy site appears to be healing fairly well. May continue the current management. (7) COPD (chronic obstructive pulmonary disease) with emphysema: Patient's ongoing smoking abuse, reactive airway disease and COPD are contributing factors for the decompensated heart failure. May continue on the bronchodilator treatment. Qualifiers: Emphysema type: unspecified Qualified Code(s): J43.9 - Emphysema, unspecified Plan Continue other medications as mentioned above. It would be ideal to wait to see the response to p.o. Lasix today. But if he is insisting on going home, may be discharged in the evening. Patient seems to be concerned about the weather conditions of tomorrow PDMP PDMP Reviewed: Not Reviewed Attestations Medical Necessity Statement*: Disposition as per the primary Coding Level of Care Code 01981 Diagnoses New onset of congestive heart failure I50.9 Ischemic cardiomyopathy I25.5 Dyslipidemia E78.5 Benign hypertension I10 Type 2 diabetes mellitus without complication, without long-term current use of insulin E11.9 Diabetes mellitus watermelon inspector insulin use: without assisted use Diabetes mellitus complication status: without complication S/P carotid endarterectomy Z98.890 Pulmonary emphysema, unspecified emphysema type J43.9 Emphysema type: unspecified
[2024-04-30 10:56] LABS: Glucose Point of Care 334 mg/dL (70-110)
[2024-04-30] MEDS: FUROsemide 40 mg Tablet PO (15:01)
--- NOTE | 2024-04-30 15:48 | PM.PN ---
Subjective Subjective: Seen today. Patient is 7 L negative since admission. Patient agreeable to stay another night. He was switched to oral Lasix. Cardiology recommends to observe on oral Lasix at this time. Vitals/I&O/Wt Last Vital Signs Temp 98.1 F 04/30/24 11:20 Pulse 86 04/30/24 11:20 Resp 16 04/30/24 08:41 BP 129/78 04/30/24 11:20 Pulse Ox 91 04/30/24 11:20 O2 Del Method Room Air 04/30/24 11:20 O2 Flow Rate 2 04/28/24 00:00 FiO2 35 04/27/24 23:15 04/30/24 04/30/24 04/30/24 06:59 14:59 22:59 Intake Total 480 / 480 Output Total 2400 / 4450 1800 / 1800 350 / 2150 Balance -2400 / -3850 -1320 / -1320 -350 / -1670 Weight last 48 hrs Weight 108.681 kg Weight 108.318 kg Physical Exam Narrative: 2+ edema b/l LE, improved compared to yesterday S1, S2 on room air lungs clear to ausculation GCS 15 No apparent crackles at base of lungs at this time Nonfocal neuroexam AO x 4 GCS 15 Data 04/30/24 05:02 04/30/24 05:02 A&P Assessment and plan (1) New onset of congestive heart failure: (2) Sleep apnea: (3) Hypertension: Qualifiers: Hypertension type: primary hypertension Qualified Code(s): I10 - Essential (primary) hypertension (4) Ischemic cardiomyopathy: (5) Type 2 diabetes mellitus: Qualifiers: Diabetes mellitus senior living insulin use: without director long term care use Diabetes mellitus complication status: without complication Qualified Code(s): E11.9 - Type 2 diabetes mellitus without complications (6) Acute hypoxic respiratory failure: (7) Lumbar back pain: Plan New onset systolic CHF Previous echo showed EF of 33% January 2024 History of coronary disease CABG x 3 Recent carotid endarterectomy Patient take aspirin plan Plavix Which I will continue No active chest pain Start diuretics Lasix IV every 12 hours Repeat echo, check D-dimer No active chest pain Patient has history of sleep apnea will request BiPAP overnight because of pulm edema If patient's EF has not improved since his CABG patient will need cardiology evaluation and possible AICD recommendation Acute hypoxia currently requiring 6 L Pulm edema on x-ray Smoker, does not use oxygen at home Check respiratory panel Recent carotid endarterectomy history of CABG continue aspirin and Plavix and statin History of sleep apnea, BiPAP overnight Patient is full code Cardiac consistent carb diet Insulin with sliding scale 04/28/2024 Patient has bilateral pleural effusions small to moderate size as evidenced on CTA chest. He is currently on Lasix 40 IV twice daily. I would continue the same at this time. Continue BiPAP overnight because of pulmonary edema. Patient has had a CABG and carotid endarterectomy in the past. COVID influenza RSV are negative at this time. Continue aspirin Plavix atorvastatin Hold hydrochlorothiazide at this time. Continue insulin and metoprolol titrate. Consult cardiology. Echo is pending at this time. Patient repeatedly requesting to go home however I discussed with him that until his echo has resulted we cannot send him home especially when he has evidence of fluid overload. He will need IV diuresis going forward. Discussed with cardiology. 04/29/2024 Continue IV diuresis continue potassium Continue aspirin Plavix atorvastatin Hold hydrochlorothiazide at this time. Continue insulin and metoprolol titrate. will need lifevest at discharge he would like to setup with dr guidry as bungy jump master 04/30/2024 Continue diuresis. Switch to Lasix orally 40 twice daily. Cardiology recommends to watch patient on oral Lasix at this time. Patient agreeable to stay another night. Continue potassium 20 daily. Continue aspirin Plavix atorvastatin. A LifeVest has been ordered. Will need to follow-up with Dr. Guidry as an outpatient. Cardiology recommendations appreciated. PDMP PDMP Reviewed: Not Reviewed Attestations Medical Necessity Statement*: Patient requires continued hospital stay for close monitoring and further management Diagnoses New onset of congestive heart failure I50.9 Sleep apnea G47.30 Primary hypertension I10 Hypertension type: primary hypertension Ischemic cardiomyopathy I25.5 Type 2 diabetes mellitus without complication, without long-term current use of insulin E11.9 Diabetes mellitus director long term care insulin use: without director long term care use Diabetes mellitus complication status: without complication Acute hypoxic respiratory failure J96.01 Lumbar back pain M54.5
[2024-04-30 16:59] LABS: Glucose Point of Care 175 mg/dL (70-110)
[2024-04-30 20:26] LABS: Glucose Point of Care 354 mg/dL (70-110)
[2024-04-30] MEDS: acetaminophen 500 mg Tablet PO (22:22)
[2024-05-01] VITALS: BP 156/82; PULSE 87; RESP 18; TEMP 36.5; O2SAT 96
[2024-05-01] MEDS: oxymetazoline 0.05% Nasal Spray 15 mL 2 SPRAY NOSTRIL-B (01:26)
[2024-05-01 04:00] VITALS: BP 130/73; PULSE 89; RESP 18; TEMP 36.9; O2SAT 96
[2024-05-01 04:30] LABS: Basophils # 0.1 10^3/uL (0.0-0.1); Eosinophils # 0.3 10^3/uL (0.0-0.8); Eosinophils % 4.4 %; Hematocrit 41.7 % (37-53); Lymphocytes # 1.8 10^3/uL (0.8-4.8); Lymphocytes % 28.8 %; Mean Corpuscular HGB Conc 29.7 g/dL (30-55); Mean Corpuscular Hemoglobin 23.1 pg (27-33); Mean Corpuscular Volume 77.8 fl (82-101); Mean Platelet Volume 11.1 fL (7.4-10.4); Monocytes # 0.7 10^3/uL (0.2-0.9); Monocytes % 11.8 %; Neutrophils # 3.27 10^3/uL (1.8-7.7); Neutrophils % 53.8 %; Nucleated Red Blood Cells % 0 %; Platelet Count 213 10^3/cmm (157-399); Red Blood Count 5.36 10^6/uL (3.85-5.65); Red Cell Distribution Width 17.7 % (12.1-15.1); White Blood Count 6.08 10^3/uL (3.29-11.43)
[2024-05-01 04:56] LABS: Anion Gap 16.9 (5-19); Blood Urea Nitrogen 24 mg/dL (8-23); Calcium 8.2 mg/dL (8.5-10.5); Carbon Dioxide 25 mmol/L (22-29); Chloride 101 mmol/L (98-107); Creatinine Clr Calc Pharmacy 95.7572; Glucose 259 mg/dL (65-115); Osmolality Calculated 301 mOsm/kg (285-295); Potassium 3.9 mmol/L (3.5-5.1); Sodium 139 mmol/L (136-145)
[2024-05-01 06:00] VITALS: BMI 33.8
[2024-05-01 06:34] LABS: Glucose Point of Care 232 mg/dL (70-110)
[2024-05-01 07:17] VITALS: BP 147/95; PULSE 96; RESP 16; TEMP 36.3; O2SAT 99
[2024-05-01 07:36] VITALS: PULSE 97; RESP 22; O2SAT 98
--- NOTE | 2024-05-01 07:55 | P.PN_ITS ---
Subjective 2 Subjective: Patient seems to be diuresing properly with the p.o. Lasix. Denies any new symptoms. Overall functional status is steadily improving. The vital signs are stable. pO2 is 98 on room air. Remaining afebrile Medications: Medication Review Details: Current Medications Acetaminophen (Acetaminophen 500 Mg Tablet) 500 mg PO Q4H PRN PRN Reason: fever Last Admin: 04/30/24 22:22 Dose: 500 mg Hydrocodone Bitart/Acetaminophen (Hydrocodone-Acetaminophen 5-325 Mg Tablet) 1 tab PO Q6H PRN PRN Reason: Pain Albuterol/Ipratropium (Ipratropium-Albuterol 3 Ml Neb) 3 ml INHALATION Q6H PRN PRN Reason: SHORTNESS OF BREATH Allopurinol (Allopurinol 100 Mg Tablet) 100 mg PO DAILY [facility] Last Admin: 04/30/24 08:50 Dose: 100 mg Alprazolam (Alprazolam 0.5 Mg Tablet) 0.25 mg PO TID PRN PRN Reason: ANXIETY Last Admin: 04/30/24 17:34 Dose: 0.25 mg Aspirin (Aspirin 81 Mg Ec Tablet) 81 mg PO DAILY [facility] Last Admin: 04/30/24 08:50 Dose: 81 mg Clopidogrel Bisulfate (Clopidogrel 75 Mg Tablet) 75 mg PO DAILY [facility] Last Admin: 04/30/24 08:50 Dose: 75 mg Furosemide (Furosemide 40 Mg Tablet) 40 mg PO BID@08,16 [facility] Last Admin: 04/30/24 15:01 Dose: 40 mg Glucagon (Glucagon 1 Mg/Ml Kit 1 Ml) 1 mg IM ONCE PRN; Protocol PRN Reason: Adult Acute Hypoglycemia Nursing Prot. Heparin Sodium (Porcine) (Heparin 5,000 Unit/Ml Inj 1 Ml) 5,000 unit SUBCUT Q12H [facility] Last Admin: 05/01/24 01:20 Dose: Not Given Dextrose (D5w) 500 mls @ 0 mls/hr IV ONCE PRN; Protocol PRN Reason: Adult Acute Hypoglycemia Prot Dextrose (D10w) 125 mls @ 750 mls/hr IV PRN PRN; Protocol PRN Reason: Adult Acute Hypoglycemia Nursing Protocol Dextrose (D10w) 250 mls @ 1,000 mls/hr IV PRN PRN; Protocol PRN Reason: Adult Acute Hypoglycemia Nursing Protocol Insulin Human Lispro (Insulin Lispro 100 Unit/1 Ml) 0 unit SUBCUT WM&BEDTIME [facility]; Protocol Last Admin: 04/30/24 21:04 Dose: 14 unit Metoprolol Tartrate (Metoprolol Tartrate 25 Mg Tablet) 25 mg PO BID [facility] Last Admin: 04/30/24 17:34 Dose: 25 mg Ondansetron HCl (Ondansetron 2 Mg/Ml Sdv 2 Ml) 4 mg IVP Q6H PRN PRN Reason: NAUSEA AND VOMITING Oxymetazoline HCl (Oxymetazoline 0.05% Nasal Unity 15 Ml) 2 spray NOSTRIL-B Q12H PRN PRN Reason: NASAL CONGESTION Last Admin: 05/01/24 01:26 Dose: 2 spray Pantoprazole Sodium (Pantoprazole Dr 40 Mg Tablet) 40 mg PO DAILY [facility] Last Admin: 04/30/24 08:50 Dose: 40 mg Potassium Chloride (Potassium Chloride Er 20 Meq Tablet) 20 meq PO DAILY [facility] Last Admin: 04/30/24 08:50 Dose: 20 meq Sacubitril/Valsartan (Sacubitril/Valsartan 24-26 Mg Tablet) 1 each PO BID [facility] Last Admin: 04/30/24 17:34 Dose: 1 each Senna/Docusate Sodium (Sennosides-Docusate Tablet) 1 tab PO DAILY [facility] Last Admin: 04/30/24 08:50 Dose: 1 tab Spironolactone (Spironolactone 25 Mg Tablet) 25 mg PO DAILY [facility] Last Admin: 04/30/24 08:49 Dose: 25 mg Vitals/I&O/Wt Last Vital Signs Temp 97.4 F L 05/01/24 07:17 Pulse 97 05/01/24 07:36 Resp 22 H 05/01/24 07:36 BP 147/95 05/01/24 07:17 Pulse Ox 98 05/01/24 07:36 O2 Del Method Room Air 05/01/24 07:36 O2 Flow Rate 2 04/28/24 00:00 FiO2 35 04/27/24 23:15 04/30/24 05/01/24 05/01/24 22:59 06:59 14:59 Intake Total 480 / 960 480 / 1440 Output Total 2500 / 4300 950 / 5250 Balance -2020 / -3340 -470 / -3810 Weight last 48 hrs Weight 236 lb Weight 239 lb 9.6 oz Physical Exam 2 Narrative: GENERAL: The patient is alert and oriented times three. Not in any acute distress. HEENT: No significant pallor, icterus or lymphadenopathy.Oral cavity: There are no mucous membrane lesions. NECK: Trachea appears to be central. No masses noted. No JVD or thyromegaly appreciated. RESPIRATORY: Chest is symmetrical. No intercostals muscle retraction or any accessory muscle activation. There is no chest wall tenderness. Breath sounds are heard bilaterally. No rales or rhonchi. Breath sounds are slightly diminished at the bases BREASTS: Deferred. HEART: The heart sounds are normal. No S3 or S4. No significant murmurs. No pericardial rub ABDOMEN: No vessel pulsations or distention. No tenderness. No organomegaly appreciated. Bowel sounds are normally heard. : Deferred. RECTAL: Deferred. LYMPHATIC: No lymphadenopathy noted in the neck. EXTREMITIES: 1-2+ edema both lower extremities. No cyanosis MUSCULOSKELETAL: No acute joint deformities or swelling SKIN: There are no significant rashes or ecchymosis NEUROPSYCHIATRIC: The patient is alert and oriented x3. Appears to be in a good mood. No tremors or rigidity noted. Data 05/01/24 03:35 05/01/24 03:35 Other Labs: Laboratory Last Values WBC 6.08 10^3/uL (3.29-11.43) 05/01/24 03:35 RBC 5.36 10^6/uL (3.85-5.65) 05/01/24 03:35 Hgb 12.40 g/dL (11.27-16.99) 05/01/24 03:35 Hct 41.7 % (37-53) 05/01/24 03:35 MCV 77.8 fl (82-101) L 05/01/24 03:35 MCH 23.1 pg (27-33) L 05/01/24 03:35 MCHC 29.7 g/dL (30-55) L 05/01/24 03:35 RDW 17.7 % (12.1-15.1) H 05/01/24 03:35 Plt Count 213 10^3/cmm (157-399) 05/01/24 03:35 MPV 11.1 fL (7.4-10.4) H 05/01/24 03:35 Neut % (Auto) 53.8 % 05/01/24 03:35 Lymph % (Auto) 28.8 % 05/01/24 03:35 [place] % (Auto) 11.8 % 05/01/24 03:35 Eos % (Auto) 4.4 % 05/01/24 03:35 Baso % (Auto) 1.0 % 05/01/24 03:35 Neut # (Auto) 3.27 10^3/uL (1.8-7.7) 05/01/24 03:35 Lymph # (Auto) 1.8 10^3/uL (0.8-4.8) 05/01/24 03:35 [place] # (Auto) 0.7 10^3/uL (0.2-0.9) 05/01/24 03:35 Eos # (Auto) 0.3 10^3/uL (0.0-0.8) 05/01/24 03:35 Baso # (Auto) 0.1 10^3/uL (0.0-0.1) 05/01/24 03:35 Nucleated RBC % (auto) 0 % 05/01/24 03:35 Nucleated RBCs # 0.0 /100WBC 05/01/24 03:35 PT 15.60 SECONDS (12.1-14.9) H 04/27/24 13:42 INR 1.15 (0.8-1.2) 04/27/24 13:42 D-Dimer 0.55 ug/mLFEU (0-0.59) 04/27/24 13:42 Specimen Type Arterial 04/27/24 14:19 Sample Site Radial, right 04/27/24 14:19 ABG pH 7.29 (7.35-7.45) L 04/27/24 14:19 ABG pCO2 54.7 mmHg (35-45) H 04/27/24 14:19 ABG pO2 58.2 mmHg (80.0-100.0) L 04/27/24 14:19 ABG PO2/FiO2 Ratio 277 04/27/24 14:19 ABG HCO3 26.3 mmol/L (22-26) H 04/27/24 14:19 ABG O2 Saturation 85.8 04/27/24 14:19 ABG Base Excess -1.2 mmol/L (-2.0-2.0) 04/27/24 14:19 Arslan Test Pos 04/27/24 14:19 A-a O2 Gradient 3.6 mmHg (5-10) L 04/27/24 14:19 Hematocrit 42.5 % (42-52) 04/27/24 14:19 Hgb O2 Saturation 82.9 % (95-100) L 04/27/24 14:19 Carboxyhemoglobin 2.3 %THgb (0.4-20.1) 04/27/24 14:19 Methemoglobin 1.1 % (0.4-1.5) 04/27/24 14:19 Total Hemoglobin 13.9 g/dL (14-18) L 04/27/24 14:19 Sodium 143.0 mmol/L (131-143) 04/27/24 14:19 Potassium 4.0 mmol/L (3.5-5.0) 04/27/24 14:19 Glucose 282.0 mg/dL (70-115) H 04/27/24 14:19 Ionized Calcium 1.3 mmol/L (1.1-1.4) 04/27/24 14:19 O2 Delivery Device Room air 04/27/24 14:19 FiO2 21.0 % 04/27/24 14:19 Neurosurgery Physician ID [email or web address] 04/27/24 14:19 Sodium 139 mmol/L (136-145) 05/01/24 03:35 Potassium 3.9 mmol/L (3.5-5.1) 05/01/24 03:35 Chloride 101 mmol/L (98-107) 05/01/24 03:35 Carbon Dioxide 25 mmol/L (22-29) 05/01/24 03:35 Anion Gap 16.9 (5-19) 05/01/24 03:35 BUN 24 mg/dL (8-23) H 05/01/24 03:35 Creatinine 1.0 mg/dL (0.7-1.2) 05/01/24 03:35 GFR Calculation 76.0 mL/min (90-130) L 05/01/24 03:35 Glucose 259 mg/dL (65-115) H 05/01/24 03:35 POC Glucose 232 mg/dL (70-110) H 05/01/24 06:30 Calculated Osmolality 301 mOsm/kg (285-295) H 05/01/24 03:35 Calcium 8.2 mg/dL (8.5-10.5) L 05/01/24 03:35 Phosphorus 4.3 mg/dL (2.5-4.5) 04/28/24 04:19 Magnesium 1.9 mg/dL (1.7-2.3) 04/30/24 05:02 Total Bilirubin 0.4 mg/dL (0.15-1.2) 04/30/24 05:02 AST 18 U/L (0-40) 04/30/24 05:02 ALT 18 U/L (0-41) 04/30/24 05:02 Alkaline Phosphatase 123 U/L (40-130) 04/30/24 05:02 Troponin T Baseline 29 ng/L (0-15) H 04/27/24 13:42 Troponin T 120 Minute 34.89 ng/L (0-15) H 04/27/24 16:10 Delta Troponin T 5.89 ABS# (0-10) 04/27/24 16:10 Troponin T Hi Sens 6Hr 40.64 ng/L (0-15) H 04/27/24 21:55 Troponin T Hi Sens 6Hr Delta 11.64 ng/L (0-12) 04/27/24 21:55 C-Reactive Protein 3.0 mg/L (0.0-4.9) 04/28/24 04:19 NT-Pro-B Natriuret Pep 4688 pg/mL (0-125) H 04/27/24 13:42 Total Protein 6.7 g/dL (6.6-8.7) 04/30/24 05:02 Albumin 3.9 g/dL (3.5-5.2) 04/30/24 05:02 Globulin 2.8 g/dL (1.3-4.6) 04/30/24 05:02 Vitamin B12 434 pg/mL (232-1245) 04/27/24 13:42 Coronavirus (PCR) Negative (Negative) 04/27/24 15:03 Influenza A (PCR) Negative (Negative) 04/27/24 15:03 Influenza Type B (PCR) Negative (Negative) 04/27/24 15:03 RSV (PCR) Negative (Negative) 04/27/24 15:03 A&P Assessment and plan (1) New onset of congestive heart failure: Seems to be responding to the current medications. May continue on the Entresto, spironolactone, Lasix and beta-blockers. I may switch the IV Lasix to p.o. 40 mg p.o. twice daily. May continue on the current dose. The dose of the Entresto need to be titrated up as outpatient. The dose of Lasix may need to be cut back. Since he has 1-2+ edema still, may continue on the current dose for the time being. (2) Ischemic cardiomyopathy: The LV ejection fraction was found to be around 30%. Patient may be started on GDMT. Patient has slightly elevated troponin T most likely from type II NC. No evidence of any acute myocardial injury. Patient may benefit from a LifeVest, this was discussed in detail with the patient. He is willing to take it. LifeVest was ordered yesterday. It is pending (3) Dyslipidemia: May continue the current medications (4) Benign hypertension: The blood pressure is elevated. This needs to be closely monitored at home. Medication adjustments will be made based on the home recordings. Patient was somewhat upset yesterday because of staying in the hospital. This might have caused the blood pressure to go up (5) Type 2 diabetes mellitus: The blood sugar need to be closely monitored. Qualifiers: Diabetes mellitus remote computer terminal operator insulin use: without remote computer terminal operator use Diabetes mellitus complication status: without complication Qualified Code(s): E11.9 - Type 2 diabetes mellitus without complications (6) S/P carotid endarterectomy: The endarterectomy site appears to be healing fairly well. May continue the current management. (7) COPD (chronic obstructive pulmonary disease) with emphysema: Patient's ongoing smoking abuse, reactive airway disease and COPD are contributing factors for the decompensated heart failure. May continue on the bronchodilator treatment. Qualifiers: Emphysema type: unspecified Qualified Code(s): J43.9 - Emphysema, unspecified Plan Continue other medications as mentioned above. Patient may continue on the current medications. [facility] be seen at [facility] in a week by the nurse practitioner to titrate his medications. The importance of medication compliance was discussed with the patient. I may see him in the office in a month or so. PDMP PDMP Reviewed: Not Reviewed Attestations 2 Medical Necessity Statement*: Possible discharge home today Coding Level of Care Code 46014 Diagnoses New onset of congestive heart failure I50.9 Ischemic cardiomyopathy I25.5 Dyslipidemia E78.5 Benign hypertension I10 Type 2 diabetes mellitus without complication, without long-term current use of insulin E11.9 Diabetes mellitus remote computer terminal operator insulin use: without longterm use Diabetes mellitus complication status: without complication S/P carotid endarterectomy Z98.890 Pulmonary emphysema, unspecified emphysema type J43.9 Emphysema type: unspecified
[2024-05-01] MEDS: allopurinol 100 mg Tablet PO (08:38)
[2024-05-01] MEDS: sennosides-docusate Tablet 1 TAB PO (08:38)
[2024-05-01] MEDS: sacubitril/valsartan 24-26 mg Tablet 1 EACH PO (08:38)
[2024-05-01] MEDS: clopidogrel 75 mg Tablet PO (08:39)
[2024-05-01] MEDS: potassium chloride ER 20 mEq Tablet PO (08:39)
[2024-05-01] MEDS: aspirin 81 mg EC Tablet PO (08:39)
[2024-05-01] MEDS: spironolactone 25 mg Tablet PO (08:39)
[2024-05-01] MEDS: pantoprazole DR 40 mg Tablet PO (08:39)
[2024-05-01] MEDS: metoprolol tartrate 25 mg Tablet PO (08:39)
[2024-05-01] MEDS: ALPRAZolam 0.5 mg Tablet 0.25 MG PO (08:39)
[2024-05-01] MEDS: FUROsemide 40 mg Tablet PO (08:44)
[2024-05-01] MEDS: insulin lispro 100 unit/1 mL SUBCUT (08:47)
[2024-05-01 11:46] VITALS: BP 127/83; PULSE 86; RESP 16; TEMP 36.6; O2SAT 96
[2024-05-01 12:21] LABS: Glucose Point of Care 311 mg/dL (70-110)
[2024-05-01 12:45] VITALS: BP 130/80; PULSE 86; RESP 18; TEMP 36.7; O2SAT 96
--- NOTE | 2024-05-01 12:47 | PC.SOCIAL ---
IMM Updated Updated pt on IMM. No questions voiced. Provided pt a copy. Initialed, dated, & timed copy in chart.
--- NOTE | 2024-05-01 18:12 | P.DS_ITS ---
Discharge Providers Date of Admission: 04/27/24 16:22 Date of Discharge: May 01, 2024 Attending Provider at Admission: Todd Orellana MD Attending Provider at Discharge: Milena Lopez MD Diagnoses at Discharge Discharge Diagnosis (1) New onset of congestive heart failure: Status: Acute (2) Ischemic cardiomyopathy: Status: Acute (3) Dyslipidemia: Status: Acute (4) Benign hypertension: Status: Acute (5) Type 2 diabetes mellitus: Status: Acute Qualifiers: Diabetes mellitus [facility] insulin use: without [facility] use Diabetes mellitus complication status: without complication Qualified Code(s): E11.9 - Type 2 diabetes mellitus without complications (6) S/P carotid endarterectomy: Status: Acute (7) COPD (chronic obstructive pulmonary disease) with emphysema: Status: Acute Qualifiers: Emphysema type: unspecified Qualified Code(s): J43.9 - Emphysema, unspecified Reason for Visit Reason for Visit: sob Hospital Course Hospital Course 59 with history of CABG and carotid endarterectomy presented to the hospital for heart failure exacerbation.? He had bilateral pleural effusions. Cardiology service was consulted.? He received diuresis with IV Lasix which was transitioned to 40 oral twice daily at the time of discharge.? Patient is net negative about 10 L at the time of discharge. Echocardiogram performed on April 27 showed diffuse hypokinesia of the left ventricle with an EF of 30%. His heart failure regimen was optimized with addition of spironolactone and Entresto and Lasix at the time of discharge. He is recommended to follow-up with cardiology nurse practitioner within 1 week to further titrate his medications based on response. Cardiology service to arrange LifeVest for patient- he will be getting it delivered at home. Physical Exam Narrative: General: No acute distress, AO x3 HEENT: PERRLA, pupils bilaterally equal and reactive, pallors not present Chest: Normal vesicular breath sounds, no added sounds, equal good air entry bilaterally CVS: S1-S2 regular, no murmurs, no tachycardia, no gallops, no rubs Abdomen: Soft, nontender, no organomegaly, bowel sounds present Neuro: No focal deficits, no facial deformity, AO x3, power 5/5 in all limbs Discharge Data Studies Completed and Pending Completed Studies During Hospitalization Category Date Time Status CT angio chest PE protcl [id number] Stat Cat Scan 04/27/24 14:30 Completed XR chest 1V portable [id number] Stat Exams 04/27/24 13:41 Completed CV. echo complete* [id number] Routine Ultrasound 04/27/24 16:23 Completed Radiology Impressions Chest X-Ray 04/27/24 13:41 IMPRESSION: 1. There is vascular and interstitial prominence concerning for passive congestion. No focal consolidation. 2. There are small to moderate-sized bilateral pleural effusions. Chest CTA 04/27/24 14:30 IMPRESSION: 1. No embolus. 2. Likely CHF. This includes bilateral pleural effusions. Laboratory Results WBC 6.08 10^3/uL (3.29-11.43) 05/01/24 03:35 RBC 5.36 10^6/uL (3.85-5.65) 05/01/24 03:35 Hgb 12.40 g/dL (11.27-16.99) 05/01/24 03:35 Hct 41.7 % (37-53) 05/01/24 03:35 MCV 77.8 fl (82-101) L 05/01/24 03:35 MCH 23.1 pg (27-33) L 05/01/24 03:35 MCHC 29.7 g/dL (30-55) L 05/01/24 03:35 RDW 17.7 % (12.1-15.1) H 05/01/24 03:35 Plt Count 213 10^3/cmm (157-399) 05/01/24 03:35 MPV 11.1 fL (7.4-10.4) H 05/01/24 03:35 Neut % (Auto) 53.8 % 05/01/24 03:35 Lymph % (Auto) 28.8 % 05/01/24 03:35 [place] % (Auto) 11.8 % 05/01/24 03:35 Eos % (Auto) 4.4 % 05/01/24 03:35 Baso % (Auto) 1.0 % 05/01/24 03:35 Neut # (Auto) 3.27 10^3/uL (1.8-7.7) 05/01/24 03:35 Lymph # (Auto) 1.8 10^3/uL (0.8-4.8) 05/01/24 03:35 [place] # (Auto) 0.7 10^3/uL (0.2-0.9) 05/01/24 03:35 Eos # (Auto) 0.3 10^3/uL (0.0-0.8) 05/01/24 03:35 Baso # (Auto) 0.1 10^3/uL (0.0-0.1) 05/01/24 03:35 Nucleated RBC % (auto) 0 % 05/01/24 03:35 Nucleated RBCs # 0.0 /100WBC 05/01/24 03:35 PT 15.60 SECONDS (12.1-14.9) H 04/27/24 13:42 INR 1.15 (0.8-1.2) 04/27/24 13:42 D-Dimer 0.55 ug/mLFEU (0-0.59) 04/27/24 13:42 Specimen Type Arterial 04/27/24 14:19 Sample Site Radial, right 04/27/24 14:19 ABG pH 7.29 (7.35-7.45) L 04/27/24 14:19 ABG pCO2 54.7 mmHg (35-45) H 04/27/24 14:19 ABG pO2 58.2 mmHg (80.0-100.0) L 04/27/24 14:19 ABG PO2/FiO2 Ratio 277 04/27/24 14:19 ABG HCO3 26.3 mmol/L (22-26) H 04/27/24 14:19 ABG O2 Saturation 85.8 04/27/24 14:19 ABG Base Excess -1.2 mmol/L (-2.0-2.0) 04/27/24 14:19 Arslan Test Pos 04/27/24 14:19 A-a O2 Gradient 3.6 mmHg (5-10) L 04/27/24 14:19 Hematocrit 42.5 % (42-52) 04/27/24 14:19 Hgb O2 Saturation 82.9 % (95-100) L 04/27/24 14:19 Carboxyhemoglobin 2.3 %THgb (0.4-20.1) 04/27/24 14:19 Methemoglobin 1.1 % (0.4-1.5) 04/27/24 14:19 Total Hemoglobin 13.9 g/dL (14-18) L 04/27/24 14:19 Sodium 143.0 mmol/L (131-143) 04/27/24 14:19 Potassium 4.0 mmol/L (3.5-5.0) 04/27/24 14:19 Glucose 282.0 mg/dL (70-115) H 04/27/24 14:19 Ionized Calcium 1.3 mmol/L (1.1-1.4) 04/27/24 14:19 O2 Delivery Device Room air 04/27/24 14:19 FiO2 21.0 % 04/27/24 14:19 Professor Of French ID [email or web address] 04/27/24 14:19 Sodium 139 mmol/L (136-145) 05/01/24 03:35 Potassium 3.9 mmol/L (3.5-5.1) 05/01/24 03:35 Chloride 101 mmol/L (98-107) 05/01/24 03:35 Carbon Dioxide 25 mmol/L (22-29) 05/01/24 03:35 Anion Gap 16.9 (5-19) 05/01/24 03:35 BUN 24 mg/dL (8-23) H 05/01/24 03:35 Creatinine 1.0 mg/dL (0.7-1.2) 05/01/24 03:35 GFR Calculation 76.0 mL/min (90-130) L 05/01/24 03:35 Glucose 259 mg/dL (65-115) H 05/01/24 03:35 POC Glucose 311 mg/dL (70-110) H 05/01/24 11:48 Calculated Osmolality 301 mOsm/kg (285-295) H 05/01/24 03:35 Calcium 8.2 mg/dL (8.5-10.5) L 05/01/24 03:35 Phosphorus 4.3 mg/dL (2.5-4.5) 04/28/24 04:19 Magnesium 1.9 mg/dL (1.7-2.3) 04/30/24 05:02 Total Bilirubin 0.4 mg/dL (0.15-1.2) 04/30/24 05:02 AST 18 U/L (0-40) 04/30/24 05:02 ALT 18 U/L (0-41) 04/30/24 05:02 Alkaline Phosphatase 123 U/L (40-130) 04/30/24 05:02 Troponin T Baseline 29 ng/L (0-15) H 04/27/24 13:42 Troponin T 120 Minute 34.89 ng/L (0-15) H 04/27/24 16:10 Delta Troponin T 5.89 ABS# (0-10) 04/27/24 16:10 Troponin T Hi Sens 6Hr 40.64 ng/L (0-15) H 04/27/24 21:55 Troponin T Hi Sens 6Hr Delta 11.64 ng/L (0-12) 04/27/24 21:55 C-Reactive Protein 3.0 mg/L (0.0-4.9) 04/28/24 04:19 NT-Pro-B Natriuret Pep 4688 pg/mL (0-125) H 04/27/24 13:42 Total Protein 6.7 g/dL (6.6-8.7) 04/30/24 05:02 Albumin 3.9 g/dL (3.5-5.2) 04/30/24 05:02 Globulin 2.8 g/dL (1.3-4.6) 04/30/24 05:02 Vitamin B12 434 pg/mL (232-1245) 04/27/24 13:42 Coronavirus (PCR) Negative (Negative) 04/27/24 15:03 Influenza A (PCR) Negative (Negative) 04/27/24 15:03 Influenza Type B (PCR) Negative (Negative) 04/27/24 15:03 RSV (PCR) Negative (Negative) 04/27/24 15:03 Vitals Last Vital Signs Temp 97.8 F 05/01/24 11:46 Pulse 86 05/01/24 11:46 Resp 16 05/01/24 11:46 BP 127/83 05/01/24 11:46 Pulse Ox 96 05/01/24 11:46 O2 Del Method Room Air 05/01/24 11:46 O2 Flow Rate 2 04/28/24 00:00 FiO2 35 04/27/24 23:15 Discharge Plan Discharge Patient Disposition: Home Condition: Stable Prescriptions: New furosemide 40 mg Tablet 40 mg PO BID@08,16 30 Days Qty: 30 0RF spironolactone 25 mg Tablet 25 mg PO DAILY 30 Days Qty: 30 0RF sacubitril-valsartan [Entresto] 24-26 mg Tablet 1 tab PO BID 30 Days Qty: 60 0RF Continued hydrochlorothiazide 12.5 mg tablet 12.5 mg PO DAILY pantoprazole 20 mg tablet,delayed release (DR/EC) 20 mg PO DAILY clopidogrel [Plavix] 75 mg tablet 75 mg PO DAILY Zyrtec 10 mg capsule 10 mg PO DAILY Tresiba U-100 Insulin 100 unit/mL solution 35 unit SUBCUT BEDTIME atorvastatin 80 mg Tablet See Rx Instructions .ROUTE .COMPLEX Rx Instructions: TAKE 1 TABLET BY MOUTH EVERY EVENING WITH DINNER hydrocodone-acetaminophen 5-325 mg Tablet 1 tab PO Q6H PRN (Reason: Pain) allopurinol 100 mg Tablet 100 mg PO DAILY albuterol sulfate 90 mcg/actuation Hfa Aerosol Inhaler 2 puff INHALATION Q6H PRN (Reason: Shortness Of Breath Or Wheezing) fluticasone propionate 50 mcg/actuation [place],Suspension 2 spray INTRANASAL DAILY Rx Instructions: administer into each nostril metoprolol tartrate 25 mg Tablet 25 mg PO BID buspirone 5 mg Tablet 20 mg PO BID cyclobenzaprine 5 mg Tablet 5 mg PO DAILY Jardiance 10 mg Tablet 10 mg PO QAM No Action (DME) Diabetic Shoes with 3 sets of insoles See Rx Instructions .Route .MEDSUPPLY Qty: 1 0RF Rx Instructions: As directed by [employer] (DME) Diabetic Shoes with 3 sets of insoles See Rx Instructions .Route .MEDSUPPLY Qty: 1 0RF Rx Instructions: As directed by HOME (DME) Shoulder Immobilizer See Rx Instructions .Route .MEDSUPPLY Qty: 1 0RF Rx Instructions: As directed (DME) AFO to right See Rx Instructions .Route .MEDSUPPLY Qty: 1 0RF Rx Instructions: As directed by the brigid ruiz Discharge Orders: Discharge Order (Routine); Ordered 05/01/24 Ordered By: Milena Lopez Referrals: Chayo Fu FNP [Nurse Practitioner] - 4-7 days (We have notified your physician's clinic of the need for a follow-up appointment to be scheduled. If you have not heard from them within the next 2 business days, please call them directly. ) Discharge Diet: Cardiac Discharge Activity: Resume usual activity Patient Instructions: Spironolactone (By mouth), Furosemide (By mouth), Sacubitril/Valsartan (By mouth) (Entresto, Entresto Sprinkle), Heart Failure (DC), CHF Stoplight, Opioid Safety Activity Restrictions/Additional Instructions: PCP ESME Rodriguez [phone] APPOINTMENT ON WEDNESDAY FEBURARY 20 AT 7:00 COME AT 6:45 IF POSSIBLE Discharge Attestations Time Spent in Discharge Care*: greater than 30 min Quality Metrics Clinical Quality Measures [ No reported AMI, CVA or VTE this stay] Coding Level of Care Code Acute Code for Chg Fwd Diagnoses New onset of congestive heart failure I50.9 Ischemic cardiomyopathy I25.5 Dyslipidemia E78.5 Benign hypertension I10 Type 2 diabetes mellitus without complication, without long-term current use of insulin E11.9 Diabetes mellitus marine oil terminal superintendent insulin use: without marine oil terminal superintendent use Diabetes mellitus complication status: without complication S/P carotid endarterectomy Z98.890 Pulmonary emphysema, unspecified emphysema type J43.9 Emphysema type: unspecified
== END 2024-05-01 12:45 | disposition home or self-care (01) | DRG 291 ==
LOC: ER 16:22 → MEDSURG 18:53
PROVIDERS: Internal Medicine; Admitting Provider Internal Medicine; Emergency Provider Emergency Medicine; Visit Provider Student in an Organized Health Care Education/Training Program
DX: I11.0 Hypertensive heart disease with heart failure (principal); I50.23 Acute on chronic systolic (congestive) heart failure; J96.01 Acute respiratory failure with hypoxia; I25.5 Ischemic cardiomyopathy; E78.5 Hyperlipidemia, unspecified; E11.9 Type 2 diabetes mellitus without complications; J43.9 Emphysema, unspecified; G47.30 Sleep apnea, unspecified; M54.50 Low back pain, unspecified; I25.10 Atherosclerotic heart disease of native coronary artery without angina pectoris; F17.200 Nicotine dependence, unspecified, uncomplicated; Z95.1 Presence of aortocoronary bypass graft; Z86.73 Personal history of transient ischemic attack (TIA), and cerebral infarction without residual deficits; Z79.82 Long term (current) use of aspirin; Z79.02 Long term (current) use of antithrombotics/antiplatelets; Z79.4 Long term (current) use of insulin; Z79.84 Long term (current) use of oral hypoglycemic drugs
CPT/HCPCS: 36415; 36416; 36600; 71045; 71275; 80048; 80051; 80053; 82330; 82607; 82805; 82962; 83735; 83880; 84100; 84484; 85025; 85378; 85610; 86140; 87637; 93005; 93306; 94660; 94664; 96372; 96374; 96375; 99285; J1644; J1815; J1940; J2060

== ENCOUNTER → 2024-05-16 15:30 | Outpatient (BNVA) | payer MEDICARE, SELFPAY | PROVIDERS: Visit Provider Nurse Practitioner Family | DX: I50.9 Heart failure, unspecified (principal) | CPT/HCPCS: 36415; 80048; 83880; 99213 ==

== ENCOUNTER → 2024-07-12 09:58 | Outpatient (BNVA) | payer MEDICARE, SELFPAY | PROVIDERS: Visit Provider Nurse Practitioner Family | DX: I11.0 Hypertensive heart disease with heart failure (principal); I50.9 Heart failure, unspecified; I25.5 Ischemic cardiomyopathy; E11.9 Type 2 diabetes mellitus without complications; Z79.4 Long term (current) use of insulin; Z79.85 Long-term (current) use of injectable non-insulin antidiabetic drugs; Z72.0 Tobacco use | CPT/HCPCS: 99214 ==

== ENCOUNTER 2024-08-17 07:39 | Emergency (ER) | payer MEDICARE, SELFPAY ==
[2024-08-17] VITALS (7 sets, daily range): BP systolic 104–124; BP diastolic 62–76; PULSE 78–81; RESP 17–21; TEMP 36.4; O2SAT 96–98
--- NOTE | 2024-08-17 07:40 | ECG_ITS ---
[facility] Test Date: 2024-08-17 Pat Name: Radu Shetty Department: Room: Gender: Male [employer]: : 1965 Requested By: Ajay Molina Order Number: [id number] Reading MD: JENNIFER GIL Measurements Intervals [place] Rate: 79 P: 43 [place]: 163 QRS: 29 QRSD: 101 T: 97 QT: 383 QTc: 441 Interpretive Statements SINUS RHYTHM NONSPECIFIC T-WAVE ABNORMALITY Compared to ECG 04/27/2024 21:38:40 No significant changes Electronically Signed On 08-19-2024 23:47:28 CDT by JENNIFER GIL [email or web address]
--- NOTE | 2024-08-17 08:07 | ECG_ITS ---
[facility] Test Date: 2024-08-17 Pat Name: Radu Shetty Department: Room: Gender: Male Continuity Person: : 1965 Requested By: Ajay Molina Order Number: [id number] Reading MD: JENNIFER GIL Measurements Intervals [place] Rate: 76 P: 49 [place]: 164 QRS: 29 QRSD: 102 T: 114 QT: 397 QTc: 449 Interpretive Statements SINUS RHYTHM NONSPECIFIC ST & T-WAVE ABNORMALITY Compared to ECG 08/17/2024 07:42:57 No significant changes Electronically Signed On 08-19-2024 23:47:29 CDT by JENNIFER GIL [email or web address] [id number]
--- NOTE | 2024-08-17 08:07 | XR_ITS ---
WS: [id number] XR chest 1V portable [id number] REASON FOR EXAM: chest pain FINDINGS: Previous complex sternotomy with coronary artery bypass surgery. Calcified aortic arch with mild tortuosity and ectasia. Cardiac silhouette prominent but not significantly enlarged. Presumed mitral valve appliance. Calcified granulomas disease in both hemithoraces. No significant central pulmonary vein congestion. No acute pulmonary parenchymal or pleural abnormality. XR/XR chest 1V portable [id number] IMPRESSION: Postoperative and cardiac interventional chest. No acute chest abnormality.
--- NOTE | 2024-08-17 08:09 | ED_ITS ---
HPI - Chest Pain 2 General: Chief Complaint: Chest Pain Stated Complaint: chest tightness - nausea Time Seen by Provider: 08/17/24 08:06 History of Present Illness: 59-year-old male presents to the emergen cy room complaining of chest tightness pressure dizziness nausea the dizziness and nausea present yesterday worsened overnight chest tightness began this morning. He notes his dizziness is worse when he looks up. He has not noticed anything that exacerbates or relieves the chest comfort he describes it as more as a pressure very vague he is having little discomfort at this time. He does have a known history of coronary artery disease had coronary artery bypass graft about 10 months ago he has not had any intervention since then. No recent fever sweats or chills or cough. He also has had a relatively recent carotid endarterectomy. He has had TIAs in the past but no stroke. Patient is diabetic and is a smoker Associated symptoms: Deny abdominal pain, dyspnea or fever(s) Related Data Home Medications ?Medication ?Instructions ?Recorded ?Confirmed clopidogrel 75 mg tablet (Plavix) 75 mg PO DAILY 05/0808/17/24 pantoprazole 20 mg tablet,delayed 20 mg PO DAILY 10/1608/17/24 release allopurinol 100 mg tablet 100 mg PO DAILY 04/27/2408/06 atorvastatin 80 mg tablet See Rx Instructions .Route . COMPLEX 04/27/24 08/17/24 cyclobenzaprine 5 mg tablet 5 mg PO DAILY 04/27/2408/06 fluticasone propionate 50 2 spray intranasal DAILY 08/17/24 mcg/actuation nasal spray,suspension hydrocodone 5 mg-acetaminophen 325 1 tab PO Q6H PRN Pa in 04/27/24 08/17/24 mg tablet semaglutide 0.25 mg or 0.5 mg (2 0.5 mg SUBCUT .weekly 07/12/24 08/17/24 mg/3 mL) subcutaneous pen injector (Ozempic) insulin aspart U-100 100 unit/mL 0 - 12 unit SUBCUT TI D 08/17/24 08/17/24 (3 mL) subcutaneous pen (Novolog FlexPen U-100 Insulin aspart) Previous Rx's ?Medication ?Instructions ?Recorded Diabetic Shoes with 3 sets of #1 ea 09/30/21 insoles Diabetic Shoes with 3 sets of #1 ea 11/05/21 insoles AFO to right #1 ea 12/14/22 Shoulder Immobilizer #1 ea 10/06/23 metoprolol tartrate 25 mg tablet 25 mg PO BID #60 tabs 05/16/24 valsartan 40 mg tablet 40 mg PO DAILY #30 tabs 06/15 furosemide 40 mg tablet See Rx Instructions .Route 0 07/19/24 .COMPLEX #60 tabs glimepiride 4 mg tablet 4 mg PO BID #60 tabs 5 isosorbide mononitrate 30 mg 30 mg PO DAILY #30 tabs 0 08/17/24 tablet,extended release 24 hr spironolactone 25 mg tablet 25 mg PO DAILY #90 tabs Allergies Allergy/AdvReac Type Severity Reaction Status Date / Time codeine AdvReac Unknown ADR-Nausea Verified 07/12/24 10:09 morphine AdvReac Unknown ADR/ALGY-Fl Verified 07/12/24 10:09 ushing Review of Systems 2 Const: Denies: fever(s) or chills Card: Reports: chest pain Resp: Denies: dyspnea GI: Denies: abdominal pain : Denies: dysuria, urinary frequency or urinary urgency Musc: Denies: neck pain or back pain Skin/Breast: Denies: rash PFSH ED 2 PFSH: Medical History Type 2 diabetes mellitus Hypertension Cigarette smoker motivated to quit Chronic low back pain Shoulder impingement Abdominal hernia Acute right ankle pain Acute bilateral low back pain Acute pain of left shoulder Encounter for long-term opiate analgesic use Back pain with history of spinal surgery Opioid contract exists Lumbar back pain Smoker Surgical History Hx of shoulder surgery History of carpal tunnel surgery Hx of abdominal surgery Hx of oral surgery H/O sinus surgery History of lumbar surgery History of ankle surgery Family History Other Aneurysm Cancer Social History Smoking and tobacco/nicotine status: current some day tobacco/nicotine user cigarettes Packs smoked per day: 1 Alcohol intake: current Alcohol intake frequency: few times a month Substance/Drug Use: unknown Physical Exam 2 Const: COMMON NORMALS: no acute distress GENERAL APPEARANCE: cooperative ORIENTATION/CONSCIOUSNESS: Yes awake, Yes oriented to person, Yes oriented to place and Yes oriented to time HENMT: COMMON NORMALS: normocephalic, atraumatic, hearing grossly normal bilaterally, external ears normal, EAC's normal, TM's normal bilaterally and Normal nasal mucous membranes and turbinates present HEAD & SCALP: n ormocephalic and atraumatic NOSE: Normal nasal mucous membranes and turbinates present EXTERNAL EAR: Yes external ears normal EXTERNAL AUDITORY CANAL: EAC's normal TYMPANIC MEMBRANE: TM's normal bilaterally Resp: COMMON NORMALS: normal respiratory effort, No retractions, No use of accessory muscles and clear to auscultation bilaterally AUSCULTATION: clear to auscultation bilaterally Cardio: COMMON NORMALS: regular rate, regular rhythm and No murmurs present (Cardio) RATE: regular rate RHYTHM: regular rhythm GI: COMMON NORMALS: Soft to palpation and No hepatosplenomegaly present A USCULTATION: Yes normoactive bowel sounds PALPATION: Yes Soft to palpation, No Tenderness to palpation present (GI), No Guarding due to palpation present (GI) and Yes No hepatosplenomegaly present Extremity: COMMON NORMALS: normal to inspection, capillary refill normal, no clubbing, cyanosis or edema, no calf tenderness and no pedal edema Neuro: SENSORIUM/ORIENTATION: Yes oriented to person, Yes oriented to place and Yes oriented to time Skin: COMMON NORMALS: no rashes or lesions noted GENERAL SKIN EXAM: no rashes or lesions noted Course 2 Vital Signs: Vital signs: Vital Signs Temperature 97.6 F 08/17/24 07:43 Pulse Rate 80 08/17/24 10:51 Respiratory Rate 20 H 08/17/24 10:51 Blood Pressure 110/75 08/17/24 10:51 Pulse Oximetry 98 08/17/24 10:51 Oxygen Delivery Me thod Room Air 08/17/24 07:43 MDM - Chest Pain Medical Decision Making Patient has angina at rest with T wave inversion in V5 and 6 which is new. His angina resolved with nitro. Encouraged him to stay however he declined. Despite best efforts to convince him otherwise he wishes to go home. Is quite concerning his known history of coronary artery disease has an ischemic cardiomyopathy having angina at rest with EKG changes his troponins are trending negative. Will add isosorbide mononitrate 30 mg once daily continue his other medications also advised him to take aspirin daily along with his clopidogrel. If he has any further chest pain return to the emergency room for reevaluation he should otherwise follow-up with cardiology as soon as he is able. Patient encouraged to return if he has further symptoms or wishes to pursue further evaluation given his new EKG changes Medical Records I reviewed the patient's medical records. Lab Data I reviewed the patient's lab results. 08/17/24 07:51 08/17/24 07:51 Radiology Impressions Chest X-Ray 08/17/24 08:07 IMPRESSION: Postoperative and cardiac interventional chest. No acute chest abnormality. Laboratory Results WBC 7.54 10^3/uL (3.29-11.43) 08/17/24 07:51 RBC 6.07 10^6/uL (3.85-5.65) H 08/17/24 07:51 Hgb 15.60 g/dL (11.27-16.99) 08/17/24 07:51 Hct 49.1 % (37-53) 08/17/24 07:51 MCV 80.9 fl (82-101) L 08/17/24 07:51 MCH 25.7 pg (27-33) L 08/17/24 07:51 MCHC 31.8 g/dL (30-55) 08/17/24 07:51 RDW 16.0 % (12.1-15.1) H 08/17/24 07:51 Plt Count 219 10^3/cmm (157-399) 08/17/24 07:51 MPV 10.9 fL (7.4-10.4) H 08/17/24 07:51 Neut % (Auto) 53.5 % 08/17/24 07:51 Lymph % (Auto) 29.3 % 08/17/24 07:51 [place] % (Auto) 11.8 % 08/17/24 07:51 Eos % (Auto) 4.0 % 08/17/24 07:51 Baso % (Auto) 0.9 % 08/17/24 07:51 Neut # (Auto) 4.03 10^3/uL (1.8-7.7) 08/17/24 07:51 Lymph # (Auto) 2.2 10^3/uL (0.8-4.8) 08/17/24 07:51 [place] # (Auto) 0.9 10^3/uL (0.2-0.9) 08/17/24 07:51 Eos # (Auto) 0.3 10^3/uL (0.0-0.8) 08/17/24 07:51 Baso # (Auto) 0.1 10^3/uL (0.0-0.1) 08/17/24 07:51 Nucleated RBC % (auto) 0 % 08/17/24 07:51 Nucleated RBCs # 0.0 /100WBC 08/17/24 07:51 Sodium 143 mmol/L (136-145) 08/17/24 07:51 Potassium 4.3 mmol/L (3.5-5.1) 08/17/24 07:51 Chloride 103 mmol/L (98-107) 08/17/24 07:51 Carbon Dioxide 24 mmol/L (22-29) 08/17/24 07:51 Anion Gap 20.3 (5-19) H 08/17/24 07:51 BUN 29 mg/dL (8-23) H 08/17/24 07:51 Creatinine 1.1 mg/dL (0.7-1.2) 08/17/24 07:51 GFR Calculation 68.1 mL/min (90-130) L 08/17/24 07:51 Glucose 163 mg/dL (65-115) H 08/17/24 07:51 Calculated Osmolality 305 mOsm/kg (285-295) H 08/17/24 07:51 Calcium 9.4 mg/dL (8.5-10.5) 08/17/24 07:51 Total Bilirubin 0.6 mg/dL (0.15-1.2) 08/17/24 07:51 AST 20 U/L (0-40) 08/17/24 07:51 ALT 26 U/L (0-41) 08/17/24 07:51 Alkaline Phosphatase 138 U/L (40-130) H 08/17/24 07:51 Troponin T Baseline 27 ng/L (0-15) H 08/17/24 07:51 Troponin T 120 Minute 24.45 ng/L (0-15) H 08/17/24 09:48 Delta Troponin T -2.55 ABS# (0-10) L 08/17/24 09:48 Total Protein 7.3 g/dL (6.6-8.7) 08/17/24 07:51 Albumin 4.6 g/dL (3.5-5.2) 08/17/24 07:51 Globulin 2.7 g/dL (1.3-4.6) 08/17/24 07:51 All radiology interpretation(s) finalized by discharge EKG Data EKG 1: Interpretation: EKG shows T wave inversion at V5 and 6 which is new compared to previous EKG from April 27, 2024. Rate of 79 NH interval 163 QT 383 EKG 2: Interpretation: EKG 08/17/2024 835 T wave inversion in V5 and 6 is persisting there is no ST elevations otherwise a sinus rhythm with a rate of 76. Normal 164 these T wave inversions are new from April of this year by comparison EKG Discharge Plan Discharge Patient Disposition: Home Clinical Impression: Angina at rest, Ischemic cardiomyopathy, CAD (coronary artery disease) COPD (chronic obstructive pulmonary disease) with emphysema Qualifiers: Emphysema type: unspecified Qualified Code(s): J43.9 - Emphysema, unspecified Condition: Stable Prescriptions: New isosorbide mononitrate 30 mg tablet extended release 24 hr 30 mg PO DAILY Qty: 30 0RF No Action pantoprazole 20 mg tablet,delayed release (DR/EC) 20 mg PO DAILY clopidogrel [Plavix] 75 mg tablet 75 mg PO DAILY (DME) Diabetic Shoes with 3 sets of insoles See Rx Instructions .Route .MEDSUPPLY Qty: 1 0RF Rx Instructions: As directed by [facility] ([facility] [place] Diabetic Shoes with 3 sets of insoles See Rx Instructions .Route .MEDSUPPLY Qty: 1 0RF Rx Instructions: As directed by HOME ([facility] [place]) Shoulder Immobilizer See Rx Instructions .Route .MEDSUPPLY Qty: 1 0RF Rx Instructions: As directed metoprolol tartrate 25 mg tablet 25 mg PO BID Qty: 60 3RF Ozempic 0.25 mg or 0.5 mg (2 mg/3 mL) pen injector 0.5 mg SUBCUT .weekly valsartan 40 mg tablet 40 mg PO DAILY Qty: 30 1RF (DME) AFO to right See Rx Instructions .Route .MEDSUPPLY Qty: 1 0RF Rx Instructions: As directed by the brigid sara furosemide 40 mg tablet See Rx Instructions .ROUTE .COMPLEX Qty: 60 3RF Dose Instruction: Take 1 tablet by mouth twice daily Rx Instructions: Take 1 tablet by mouth twice daily glimepiride 4 mg tablet 4 mg PO BID Qty: 60 0RF spironolactone 25 mg tablet 25 mg PO DAILY Qty: 90 0RF atorvastatin 80 mg Tablet See Rx Instructions .ROUTE .COMPLEX Rx Instructions: TAKE 1 TABLET BY MOUTH EVERY EVENING WITH DINNER hydrocodone-acetaminophen 5-325 mg Tablet 1 tab PO Q6H PRN (Reason: Pain) allopurinol 100 mg Tablet 100 mg PO DAILY fluticasone propionate 50 mcg/actuation Palmer,Suspension 2 spray INTRANASAL DAILY Rx Instructions: administer into each nostril cyclobenzaprine 5 mg Tablet 5 mg PO DAILY insulin aspart U-100 [Novolog FlexPen U-100 Insulin] 100 unit/mL (3 mL) Insulin Pen 0 - 12 unit SUBCUT TID Rx Instructions: inject 0-12 units with meals 3 times daily Discharge Orders: Discharge ED (Routine); Ordered 08/17/24 Ordered By: Ajay Ramos Discharge Diet: Usual diet Discharge Activity: Limit activity as instructed Patient Instructions: Opioid Safety, Pain Management Activity Restrictions/Additional Instructions: Thank you for choosing [facility] for your healthcare needs today. It is very important that you follow up as instructed or that you return to the Emergency Department should you have concerns or if your condition changes or worsens in any way. You are seen in the emergency room for chest discomfort and shortness of breath. Your EKG showed acute changes. We had recommended hospitalization you declined. Recommend you start isosorbide mononitrate 30 mg once daily continue your other medications. Case management will set up an outpatient stress test and you should follow-up with Dr. Sena. Print Language: Malay Coding Level of Care Code ED Jack Winder for Oren Small
[2024-08-17 08:18] LABS: Basophils # 0.1 10^3/uL (0.0-0.1); Basophils % 0.9 %; Eosinophils # 0.3 10^3/uL (0.0-0.8); Hematocrit 49.1 % (37-53); Lymphocytes # 2.2 10^3/uL (0.8-4.8); Lymphocytes % 29.3 %; Mean Corpuscular HGB Conc 31.8 g/dL (30-55); Mean Corpuscular Hemoglobin 25.7 pg (27-33); Mean Corpuscular Volume 80.9 fl (82-101); Mean Platelet Volume 10.9 fL (7.4-10.4); Monocytes # 0.9 10^3/uL (0.2-0.9); Monocytes % 11.8 %; Neutrophils # 4.03 10^3/uL (1.8-7.7); Neutrophils % 53.5 %; Nucleated Red Blood Cells % 0 %; Platelet Count 219 10^3/cmm (157-399); Red Blood Count 6.07 10^6/uL (3.85-5.65); White Blood Count 7.54 10^3/uL (3.29-11.43)
[2024-08-17 08:32] LABS: Alanine Aminotransferase 26 U/L (0-41); Albumin Level 4.6 g/dL (3.5-5.2); Alkaline Phosphatase 138 U/L (40-130); Anion Gap 20.3 (5-19); Aspartate Amino Transferase 20 U/L (0-40); Blood Urea Nitrogen 29 mg/dL (8-23); Calcium 9.4 mg/dL (8.5-10.5); Carbon Dioxide 24 mmol/L (22-29); Chloride 103 mmol/L (98-107); Creatinine Clr Calc Pharmacy 84.0476; Globulin 2.7 g/dL (1.3-4.6); Glomerular Filtration Rate 68.1 mL/min (90-130); Glucose 163 mg/dL (65-115); Osmolality Calculated 305 mOsm/kg (285-295); Potassium 4.3 mmol/L (3.5-5.1); Sodium 143 mmol/L (136-145); Total Bilirubin 0.6 mg/dL (0.15-1.2); Total Protein 7.3 g/dL (6.6-8.7)
[2024-08-17 08:33] LABS: Troponin(5th) Baseline 27 ng/L (0-15)
--- NOTE | 2024-08-17 09:33 | PC.NURSE ---
pt given ice water and disconnected to ambulate to BR
--- NOTE | 2024-08-17 10:07 | ECG_ITS ---
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
[2024-08-17 10:11] LABS: Troponin 5 2HR 24.45 ng/L (0-15)
[2024-08-17 10:12] LABS: Troponin 5 2HR Delta -2.55 ABS# (0-10)
--- NOTE | 2024-08-17 10:25 | PC.NURSE ---
pt offered ordered zofran, denies want at this time. pt eating bag of chips, drinking water.
--- NOTE | 2024-08-17 11:23 | PC.NURSE ---
pt agitated d/t education on non-smoking facility, states needs to think about admission or leaving AMA, Dr. Ramos, ED charge at bedside, pt offered nicotine patch, has declined at this time. pt removed cardiac monitoring, refusing to re-apply at this time.
== END 2024-08-17 11:58 | disposition home or self-care (01) ==
PROVIDERS: Emergency Provider Family Medicine
DX: I25.5 Ischemic cardiomyopathy (principal); I25.118 Atherosclerotic heart disease of native coronary artery with other forms of angina pectoris; J43.9 Emphysema, unspecified; Z79.02 Long term (current) use of antithrombotics/antiplatelets; Z79.4 Long term (current) use of insulin; F17.210 Nicotine dependence, cigarettes, uncomplicated; E11.9 Type 2 diabetes mellitus without complications; I10 Essential (primary) hypertension
CPT/HCPCS: 36415; 71045; 80053; 84484; 85025; 93005; 99285

== ENCOUNTER → 2024-09-21 12:06 | Outpatient (BNVA) | payer MEDICARE, SELFPAY | PROVIDERS: Visit Provider Nurse Practitioner Family | DX: I25.5 Ischemic cardiomyopathy (principal); I11.0 Hypertensive heart disease with heart failure; I50.9 Heart failure, unspecified; Z79.02 Long term (current) use of antithrombotics/antiplatelets; F17.210 Nicotine dependence, cigarettes, uncomplicated; Z95.1 Presence of aortocoronary bypass graft | CPT/HCPCS: 99214 ==

== ENCOUNTER 2024-09-26 09:51 | Emergency (ER) | payer MEDICARE, SELFPAY ==
--- NOTE | 2024-09-26 10:00 | XRR_ITS ---
PROCEDURE INFORMATION: Exam: XR Left Knee Exam date and time: 09/26/2024 10:16 AM Age: 59 years old Clinical indication: Pain; Swelling or effusion of joint; Knee; Left; Additional info: Pain/swelling TECHNIQUE: Imaging protocol: Radiologic exam of the left knee. Views: 3 views. COMPARISON: CR XR knee LT 3V* [id number] 04/22/2023 1:16 PM FINDINGS: Bones/joints: Normal. No fracture or dislocation. No significant arthritic changes. Suprapatellar joint effusion. Soft tissues: Normal. XR/XR knee LT 3V* [id number] IMPRESSION: No acute osseous findings.
[2024-09-26 10:03] VITALS: BP 113/72; PULSE 86; RESP 16; TEMP 36.4; O2SAT 99
--- NOTE | 2024-09-26 10:07 | W.ED.EXTPRO ---
HPI - Extremity Problem General: Chief complaint: Extremity Injury, Lower Stated complaint: L knee swelling Time Seen by Provider: 09/26/24 10:00 History of Present Illness: 59-year-old male presents emergency room complaining of left knee swelling that began 2 days ago. Denies trauma. No previous injury to the knee. Associated symptoms: Deny chest pain, fever(s) or rash Related Data Home Medications ?Medication ?Instructions ?Recorded ?Confirmed clopidogrel 75 mg tablet (Plavix) 75 mg PO DAILY 05/08/19 09/21/24 pantoprazole 20 mg tablet,delayed 20 mg PO DAILY 10/17/19 09/21/24 release allopurinol 100 mg tablet 100 mg PO DAILY 04/27/24 09/21/24 atorvastatin 80 mg tablet See Rx Instructions .Route .COMPLEX 04/27/24 09/21/24 fluticasone propionate 50 2 spray intranasal DAILY 04/27/24 09/21/24 mcg/actuation nasal spray,suspension hydrocodone 5 mg-acetaminophen 325 1 tab PO Q6H PRN Pain 04/27/24 09/21/24 mg tablet semaglutide 0.25 mg or 0.5 mg (2 0.5 mg SUBCUT .weekly 07/12/24 09/21/24 mg/3 mL) subcutaneous pen injector (Ozempic) insulin aspart U-100 100 unit/mL 0 - 12 unit SUBCUT TID 08/17/24 09/21/24 (3 mL) subcutaneous pen (Novolog FlexPen U-100 Insulin aspart) cyclobenzaprine 5 mg tablet 5 mg PO DAILY PRN 09/21/24 09/21/24 Previous Rx's ?Medication ?Instructions ?Recorded Diabetic Shoes with 3 sets of #1 ea 09/30/21 insoles Diabetic Shoes with 3 sets of #1 ea 11/05/21 insoles AFO to right #1 ea 12/14/22 Shoulder Immobilizer #1 ea 10/06/23 metoprolol tartrate 25 mg tablet 25 mg PO BID #60 tabs 05/16/24 furosemide 40 mg tablet See Rx Instructions .Route 07/19/24 .COMPLEX #60 tabs spironolactone 25 mg tablet 25 mg PO DAILY #90 tabs 08/17/24 sacubitril 24 mg-valsartan 26 mg 1 tab PO BID #30 tabs 08/30/24 tablet (Entresto) icosapent ethyl 1 gram capsule 2 g (2 x 1 gram) PO BID #180 caps 09/11/24 (Vascepa) isosorbide mononitrate 30 mg 30 mg PO DAILY #30 tabs 09/11/24 tablet,extended release 24 hr diclofenac sodium 75 mg 75 mg PO Q12H PRN pain #20 tabs 09/26/24 tablet,delayed release Allergies Allergy/AdvReac Type Severity Reaction Status Date / Time codeine AdvReac Unknown ADR-Nausea Verified 09/21/24 11:39 morphine AdvReac Unknown ADR/ALGY-Fl Verified 09/21/24 11:39 ushing Review of Systems Const: Denies: fever(s) or chills Card: Denies: chest pain Resp: Denies: dyspnea GI: Denies: abdominal pain : Denies: dysuria, urinary frequency or urinary urgency Musc: Reports: joint pain; Denies: neck pain or back pain Skin/Breast: Denies: rash PFSH ED PFSH: Medical History Type 2 diabetes mellitus Hypertension Cigarette smoker motivated to quit Chronic low back pain Shoulder impingement Abdominal hernia Acute right ankle pain Acute bilateral low back pain Acute pain of left shoulder Encounter for long-term opiate analgesic use Back pain with history of spinal surgery Opioid contract exists Lumbar back pain Smoker Surgical History Hx of shoulder surgery History of carpal tunnel surgery Hx of abdominal surgery Hx of oral surgery H/O sinus surgery History of lumbar surgery History of ankle surgery Family History Other Aneurysm Cancer Social History Smoking and tobacco/nicotine status: current every day tobacco/nicotine user cigarettes Packs smoked per day: 1 Alcohol intake: current Alcohol intake frequency: few times a month Substance/Drug Use: unknown Physical Exam Const: COMMON NORMALS: no acute distress GENERAL APPEARANCE: cooperative and comfortable ORIENTATION/CONSCIOUSNESS: Yes awake, Yes oriented to person, Yes oriented to place and Yes oriented to time HENMT: COMMON NORMALS: normocephalic, atraumatic and hearing grossly normal bilaterally HEAD & SCALP: normocephalic and atraumatic Resp: COMMON NORMALS: normal respiratory effort, No retractions, No use of accessory muscles and clear to auscultation bilaterally AUSCULTATION: clear to auscultation bilaterally Cardio: COMMON NORMALS: regular rate, regular rhythm and No murmurs present (Cardio) RATE: regular rate RHYTHM: regular rhythm Extremity: OTHER: Examination of the left knee small joint effusion no ligamentous instability or laxity varus valgus stresses drawer and Devendra's are negative. No obvious deformity some hypertrophic changes suggestive of osteopenia arthritis. Examination of No swelling or edema. No lacerations or abrasions or direct injuries. Neuro: SENSORIUM/ORIENTATION: Yes oriented to person, Yes oriented to place and Yes oriented to time Skin: COMMON NORMALS: no rashes or lesions noted GENERAL SKIN EXAM: no rashes or lesions noted Course Vital Signs: Vital signs: Vital Signs Temperature 97.5 F L 09/26/24 10:03 Pulse Rate 87 09/26/24 10:50 Respiratory Rate 16 09/26/24 10:03 Blood Pressure 115/75 09/26/24 10:50 Pulse Oximetry 97 09/26/24 10:50 Oxygen Delivery Me thod Room Air 09/26/24 10:03 MDM - Extremity (Nontraumatic) Medical Decision Making No acute fracture, radiology read is suprapatellar joint effusion. Will start him on [id number] with primary care. Recheck if not improving with primary care Medical Records I reviewed the patient's medical records. Lab Data I reviewed the patient's lab results. Radiology Impressions Knee X-Ray 09/26/24 10:00 IMPRESSION: No acute osseous findings. All radiology interpretation(s) finalized by discharge Discharge Plan Discharge Patient Disposition: Home Clinical Impression: Osteoarthritis of left knee Condition: Stable Prescriptions: New diclofenac sodium 75 mg tablet,delayed release (DR/EC) 75 mg PO Q12H PRN (Reason: pain) Qty: 20 0RF No Action pantoprazole 20 mg tablet,delayed release (DR/EC) 20 mg PO DAILY clopidogrel [Plavix] 75 mg tablet 75 mg PO DAILY (DME) Diabetic Shoes with 3 sets of insoles See Rx Instructions .Route .MEDSUPPLY Qty: 1 0RF Rx Instructions: As directed by AMA&O (DME) Diabetic Shoes with 3 sets of insoles See Rx Instructions .Route .MEDSUPPLY Qty: 1 0RF Rx Instructions: As directed by HOME (DME) Shoulder Immobilizer See Rx Instructions .Route .MEDSUPPLY Qty: 1 0RF Rx Instructions: As directed metoprolol tartrate 25 mg tablet 25 mg PO BID Qty: 60 3RF Ozempic 0.25 mg or 0.5 mg (2 mg/3 mL) pen injector 0.5 mg SUBCUT .weekly (DME) AFO to right See Rx Instructions .Route .MEDSUPPLY Qty: 1 0RF Rx Instructions: As directed by the brigid ruiz furosemide 40 mg tablet See Rx Instructions .ROUTE .COMPLEX Qty: 60 3RF Dose Instruction: Take 1 tablet by mouth twice daily Rx Instructions: Take 1 tablet by mouth twice daily spironolactone 25 mg tablet 25 mg PO DAILY Qty: 90 0RF Entresto 24-26 mg tablet 1 tab PO BID Qty: 30 0RF isosorbide mononitrate 30 mg tablet extended release 24 hr 30 mg PO DAILY Qty: 30 0RF icosapent ethyl [Vascepa] 1 gram capsule 2 g PO BID Qty: 180 3RF atorvastatin 80 mg Tablet See Rx Instructions .ROUTE .COMPLEX Rx Instructions: TAKE 1 TABLET BY MOUTH EVERY EVENING WITH DINNER hydrocodone-acetaminophen 5-325 mg Tablet 1 tab PO Q6H PRN (Reason: Pain) allopurinol 100 mg Tablet 100 mg PO DAILY fluticasone propionate 50 mcg/actuation Brady,Suspension 2 spray INTRANASAL DAILY Rx Instructions: administer into each nostril cyclobenzaprine 5 mg tablet 5 mg PO DAILY PRN insulin aspart U-100 [Novolog FlexPen U-100 Insulin] 100 unit/mL (3 mL) Insulin Pen 0 - 12 unit SUBCUT TID Rx Instructions: inject 0-12 units with meals 3 times daily Discharge Orders: Discharge ED (Routine); Ordered 09/26/24 Ordered By: Ajay Ramos Discharge Diet: Usual diet Discharge Activity: Increase activity as tolerated Patient Instructions: Opioid Safety, Pain Management, Patient Portal & Shellie Instructions Activity Restrictions/Additional Instructions: Thank you for choosing [facility] for your healthcare needs today. It is very important that you follow up as instructed or that you return to the Emergency Department should you have concerns or if your condition changes or worsens in any way. You are seen in the emergency room with complaint of left knee pain. X-ray did not show any acute fracture there is mild joint effusion suspect this is mostly driven by arthritis in the joint. Recommend you follow-up with your primary care doctor will give you anti-inflammatories to use until then. Stand Alone Forms: Work/School Release Print Language: Czech Coding Level of Care Code ED Steel Rule Inspector for Oren Small
--- OUTSIDE RECORDS SUMMARY | 2024-09-26 10:31 | XMS_ITS | Encounter Summary ---
Author Organization [facility] Address [address] [place] [address] Care Team Providers Care Farm Contractor Name Role Phone Yesenia Maria DO Primary Care Provider [phone] Encounter Details Date Type Department Care Team (Latest Contact Info) Description 04/12/2006 Outpatient [facility] Ear, Nose and Throat- [address] 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 Gender Identity Not on file Sexual Orientation Not on file documented as of this encounter Plan of Treatment Not on file documented as of this encounter Visit Diagnoses Diagnosis Follow-up examination, following unspecified surgery- Primary documented in this encounter Additional Health Concerns Infection Onset Date Last Indicated Resolved Time R/O COVID-19 01/26/2020 01/26/2020 01/28/2020 1:46 AM 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
--- OUTSIDE RECORDS SUMMARY | 2024-09-26 10:31 | XMS_ITS | Encounter Summary ---
Author Organization [facility] Address [address] [place] [address] Care Team Providers Care Grease Machine Worker Name Role Phone Yesenia Maria DO Primary Care Provider [phone] Encounter Details Date Type Department Care Team (Late st Contact Info) Description 11/16/2009 Outpatient Historical [facility] [address] [place] [address] Maverick Grace PA [address] [facility] [address] [place] [phone] Lumbago (Primary Dx); Other Chronic Pain Social History Tobacco Use Types Packs/Day Years Used Date Smoking Tobacco: Former Cigarettes Q uit: 12/14/2007 Comments:may smoke occassion ally Alcohol Use Standard Drinks/Week Comments No 0 (1 standard drink = 0.6 oz pur e alcohol) Sex and Gender Information Value Date Recorded Sex Assigned at Not on file Legal 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 FIREMAN Gender Identity Not on file Sexual Orientation Not on file documented as of this encounter Plan of Treatment Not on file documented as of this encounter Visit Diagnoses Diagnosis Lumbago- Primary Other chronic pain documented in this encounter Additional Health Concerns Infection Onset Date Last Indicated Resolved Time R/O COVID-19 01/26/2020 01/26/2020 01/28/2020 1:46 AM FIREMAN documented as of this encounter Care Teams Grease Machine Worker Relationship Specialty Start Date End Date Yesenia Maria DO PCP - General Family Practice 04/18/20 07/14/20 documented as of this encounter
--- OUTSIDE RECORDS SUMMARY | 2024-09-26 10:31 | XMS_ITS | Encounter Summary ---
Author Organization [facility] Address [address] [place] [address] Care Team Providers Care Status Controller Name Role Phone Yesenia Maria DO Primary Care Provider [phone] Encounter Details Date Type Department Care Team (Latest Contact Info) Description 02/08/2006 Outpatient Historical [address] [facility] [place] [phone] Melly Jameson DO NO ADDRESS ON FILE Acute Sinusitis, Unspecified (Primary Dx); Unspecified Otitis Media Social History Tobacco Use Types Packs/Day Years Used Date Smoking Tobacco: Never Assessed Sex and Gender Information Value Date Recorded Sex Assigned at Not on file Legal 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 ADMINISTRATIVE UNDERWRITER Gender Identity Not on file Sexual Orientation Not on file documented as of this encounter Plan of Treatment Not on file documented as of this encounter Visit Diagnoses Diagnosis Acute sinusitis, unspecified- Primary Unspecified otitis media documented in this encounter Additional Health Concerns Infection Onset Date Last Indicated Resolved Time R/O COVID-19 01/26/2020 01/26/2020 01/28/2020 1:46 AM ADMINISTRATIVE UNDERWRITER documented as of this encounter Care Teams Status Controller Relationship Specialty Start Date End Date Yesenia Maria DO PCP - General Family Practice 04/18/20 07/14/20 documented as of this encounter
--- OUTSIDE RECORDS SUMMARY | 2024-09-26 10:31 | XMS_ITS | Encounter Summary ---
Author Organization [facility] Address [address] [place] [address] Care Team Providers Care Destination Specialist Name Role Phone Yesenia Maria DO Primary Care Provider [phone] Encounter Details Date Type Department Care Team (Latest Contact Info) Description 10/07/1999 Outpatient Historical [facility] Medicine [address] [place] [phone] Yuri Richter MD NO ADDRESS ON FILE Backache, unspecified (Primary Dx) Social History Tobacco Use Types Packs/Day Years Used Date Smoking Tobacco: Never Assessed Sex and Gender Information Value Date Recorded Sex Assigned at Not on file Legal 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 SENIOR CYBER INTELLIGENCE ANALYST Gender Identity Not on file Sexual Orientation Not on file documented as of this encounter Plan of Treatment Not on file documented as of this encounter Visit Diagnoses Diagnosis Backache, unspecified- Primary documented in this encounter Additional Health Concerns Infection Onset Date Last Indicated Resolved Time R/O COVID-19 01/26/2020 01/26/2020 01/28/2020 1:46 AM SENIOR CYBER INTELLIGENCE ANALYST documented as of this encounter Care Teams Destination Specialist Relationship Specialty Start Date End Date Yesenia Maria DO PCP - General Family Practice 04/18/20 07/14/20 documented as of this encounter
--- OUTSIDE RECORDS SUMMARY | 2024-09-26 10:31 | XMS_ITS | Encounter Summary ---
Author Organization [facility] Address [address] [place] [address] Care Team Providers Care Bookbinding Machine Operator Name Role Phone Yesenia Maria DO Primary Care Provider [phone] Encounter Details Date Type Department Care Team (Latest Contact Info) Description 03/19/2006 Outpatient Historical [facility] [place] [phone] Steve Eugene MD NO ADDRESS ON FILE Deviated Nasal Septum (Primary Dx); Chronic Maxillary Sinusitis; Chronic Ethmoidal Sinusitis; Hypertrph Nasal Turbinat Social History Tobacco Use Types Packs/Day Years Used Date Smoking Tobacco: Never Assessed Sex and Gender Information Value Date Recorded Sex Assigned at Not on file Legal 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 HIGHER LEVEL TEACHING ASSISTANT Gender Identity Not on file Sexual Orientation Not on file documented as of this encounter Plan of Treatment Not on file documented as of this encounter Visit Diagnoses Diagnosis Deviated nasal septum- Primary Chronic maxillary sinusitis Chronic ethmoidal sinusitis Hypertrph nasal turbinat Hypertrophy of nasal turbinates documented in this encounter Additional Health Concerns Infection Onset Date Last Indicated Resolved Time R/O COVID-19 01/26/2020 01/26/2020 01/28/2020 1:46 AM HIGHER LEVEL TEACHING ASSISTANT documented as of this encounter Care Teams Bookbinding Machine Operator Relationship Specialty Start Date End Date Yesenia Maria DO PCP - General Family Practice 04/18/20 07/14/20 documented as of this encounter
--- OUTSIDE RECORDS SUMMARY | 2024-09-26 10:31 | XMS_ITS | Encounter Summary ---
Author Organization [facility] Address [address] [place] [address] Care Team Providers Care Motion Picture Equipment Machinist Name Role Phone Yesenia Maria DO Primary Care Provider [phone] Encounter Details Date Type Department Care Team (Late st Contact Info) Description 07/04/2009 Outpatient Historical [facility] [address] [place] [address] Jadyn Hair, PAGopal [address] [place] [phone] Stiffness of Joint, not Elsewhere Classified, Ankle and Foot (Primary Dx); Muscle Weakness (Generalized); Other Physical Therapy Social History Tobacco Use Types Packs/Day Years Used Date Smoking Tobacco: Former Cigarettes Q uit: 12/14/2007 Comments:may smoke occassion ally Alcohol Use Standard Drinks/Week Comments No 0 (1 standard drink = 0.6 oz pur e alcohol) Sex and Gender Information Value Date Recorded Sex Assigned at Not on file Legal 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 SHOTGUN SHELL ASSEMBLY MACHINE ADJUSTER Gender Identity Not on file Sexual Orientation Not on file documented as of this encounter Plan of Treatment Not on file documented as of this encounter Visit Diagnoses Diagnosis Stiffness of joint, not elsewhere classified, ankle and foot- Primary Muscle weakness (generalized) Other physical therapy documented in this encounter Additional Health Concerns Infection Onset Date Last Indicated Resolved Time R/O COVID-19 01/26/2020 01/26/2020 01/28/2020 1:46 AM SHOTGUN SHELL ASSEMBLY MACHINE ADJUSTER documented as of this encounter Care Teams Motion Picture Equipment Machinist Relationship Specialty Start Date End Date Yesenia Maria DO PCP - General Family Practice 04/18/20 07/14/20 documented as of this encounter
--- OUTSIDE RECORDS SUMMARY | 2024-09-26 10:31 | XMS_ITS | Encounter Summary ---
Author Organization [facility] Address [address] [place] [address] Care Team Providers Care V Belt Builder Name Role Phone Yesenia Maria DO Primary Care Provider [phone] Encounter Details Date Type Department Care Team (Latest Contact Info) Description 01/18/2006 Outpatient Historical [facility] Optometry[address] [place] [address] Loyd Bacon, OD [address] [place] [address] Nuclear Sclerosis (Primary Dx) Social History Tobacco Use Types Packs/Day Years Used Date Smoking Tobacco: Never Assessed Sex and Gender Information Value Date Recorded Sex Assigned at Not on file Legal 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 FORMAL SERVICE WAITER Gender Identity Not on file Sexual Orientation Not on file documented as of this encounter Plan of Treatment Not on file documented as of this encounter Visit Diagnoses Diagnosis Nuclear sclerosis- Primary Senile nuclear sclerosis documented in this encounter Additional Health Concerns Infection Onset Date Last Indicated Resolved Time R/O COVID-19 01/26/2020 01/26/2020 01/28/2020 1:46 AM FORMAL SERVICE WAITER documented as of this encounter Care Teams V Belt Builder Relationship Specialty Start Date End Date Yesenia Maria DO PCP - General Family Practice 04/18/20 07/14/20 documented as of this encounter
--- OUTSIDE RECORDS SUMMARY | 2024-09-26 10:31 | XMS_ITS | Encounter Summary ---
Author Organization [facility] Address [address] [place] [address] Care Team Providers Care Cigarette Tipper Name Role Phone Yesenia Maria DO Primary Care Provider [phone] Encounter Details Date Type Department Care Team (Latest Contact Info) Description [address] [facility] Medicine [address] [place] [phone] Yuri Richter MD NO ADDRESS ON FILE Vaccine for influenza (Primary Dx) Social History Tobacco Use Types Packs/Day Years Used Date Smoking Tobacco: Never Assessed Sex and Gender Information Value Date Recorded Sex Assigned at Not on file Legal 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 SOLUTIONS ANALYST Gender Identity Not on file Sexual Orientation Not on file documented as of this encounter Plan of Treatment Not on file documented as of this encounter Visit Diagnoses Diagnosis Vaccine for influenza- Primary Need for prophylactic vaccination and inoculation against influenza documented in this encounter Additional Health Concerns Infection Onset Date Last Indicated Resolved Time R/O COVID-19 01/26/2020 01/26/2020 01/28/2020 1:46 AM SOLUTIONS ANALYST documented as of this encounter Care Teams Cigarette Tipper Relationship Specialty Start Date End Date Yesenia Maria DO PCP - General Family Practice 04/18/20 07/14/20 documented as of this encounter
--- OUTSIDE RECORDS SUMMARY | 2024-09-26 10:31 | XMS_ITS | Encounter Summary ---
Author Organization [facility] Address [address] [place] [address] Care Team Providers Care Cans Vacuum Tester Name Role Phone Yesenia Maria DO Primary Care Provider [phone] Encounter Details Date Type Department Care Team (Latest Contact Info) Description 10/05/2005 Outpatient Historical [facility] Medicine [address] [place] [phone] Yuri Richter MD NO ADDRESS ON FILE Unspecified Essential Hypertension (Primary Dx); Other Abnormal Glucose Social History Tobacco Use Types Packs/Day Years Used Date Smoking Tobacco: Never Assessed Sex and Gender Information Value Date Recorded Sex Assigned at Not on file Legal 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 SHAREPOINT NET DEVELOPER Gender Identity Not on file Sexual Orientation Not on file documented as of this encounter Plan of Treatment Not on file documented as of this encounter Visit Diagnoses Diagnosis Unspecified essential hypertension- Primary Other abnormal glucose documented in this encounter Additional Health Concerns Infection Onset Date Last Indicated Resolved Time R/O COVID-19 01/26/2020 01/26/2020 01/28/2020 1:46 AM SHAREPOINT NET DEVELOPER documented as of this encounter Care Teams Cans Vacuum Tester Relationship Specialty Start Date End Date Yesenia Maria DO PCP - General Family Practice 04/18/20 07/14/20 documented as of this encounter
--- OUTSIDE RECORDS SUMMARY | 2024-09-26 10:31 | XMS_ITS | Encounter Summary ---
Author Organization [facility] Address [address] [place] [address] Care Team Providers Care Classification Case Manager Name Role Phone Yesenia Maria DO Primary Care Provider [phone] Encounter Details Date Type Department Care Team (Latest Contact Info) Description 02/15/2006 Outpatient Historical [facility] [place] [phone] Nilda Hodges, PRODUCTION ESTIMATOR [address] [place] [phone] Hypertrph Nasal Turbinat (Primary Dx); Deviated Nasal Septum; Allergic Rhinitis, Cause Unspecified; Unspecified Sinusitis (Chronic) Social History Tobacco Use Types Packs/Day Years Used Date Smoking Tobacco: Never Assessed Sex and Gender Information Value Date Recorded Sex Assigned at Not on file Legal 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 SPICE BLENDER Gender Identity Not on file Sexual Orientation Not on file documented as of this encounter Plan of Treatment Not on file documented as of this encounter Visit Diagnoses Diagnosis Hypertrph nasal turbinat- Primary Hypertrophy of nasal turbinates Deviated nasal septum Allergic rhinitis, cause unspecified Unspecified sinusitis (chronic) documented in this encounter Additional Health Concerns Infection Onset Date Last Indicated Resolved Time R/O COVID-19 01/26/2020 01/26/2020 01/28/2020 1:46 AM SPICE BLENDER documented as of this encounter Care Teams Classification Case Manager Relationship Specialty Start Date End Date Yesenia Maria DO PCP - General Family Practice 04/18/20 07/14/20 documented as of this encounter
--- OUTSIDE RECORDS SUMMARY | 2024-09-26 10:31 | XMS_ITS | Encounter Summary ---
Author Organization [facility] Address [address] [place] [address] Care Team Providers Care Press Leader Name Role Phone Yesenia Maria DO Primary Care Provider [phone] Encounter Details Date Type Department Care Team (Latest Contact Info) Description 08/07/2005 Outpatient Historical [facility] Optometry[address] [place] [address] Loyd Bacon, OD [address] [place] [address] Nuclear Sclerosis (Primary Dx) Social History Tobacco Use Types Packs/Day Years Used Date Smoking Tobacco: Never Assessed Sex and Gender Information Value Date Recorded Sex Assigned at Not on file Legal 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 ADULT SCHOOL COUNSELOR Gender Identity Not on file Sexual Orientation Not on file documented as of this encounter Plan of Treatment Not on file documented as of this encounter Visit Diagnoses Diagnosis Nuclear sclerosis- Primary Senile nuclear sclerosis documented in this encounter Additional Health Concerns Infection Onset Date Last Indicated Resolved Time R/O COVID-19 01/26/2020 01/26/2020 01/28/2020 1:46 AM ADULT SCHOOL COUNSELOR documented as of this encounter Care Teams Press Leader Relationship Specialty Start Date End Date Yesenia Maria DO PCP - General Family Practice 04/18/20 07/14/20 documented as of this encounter
--- OUTSIDE RECORDS SUMMARY | 2024-09-26 10:31 | XMS_ITS | Encounter Summary ---
Author Organization [facility] Address [address] [place] [address] Care Team Providers Care Post Exchange Manager Name Role Phone Yesenia Maria DO Primary Care Provider [phone] Encounter Details Date Type Department Care Team (Latest Contact Info) Description 11/18/2009 Outpatient Historical [facility] [address] [place] [address] Trent Davis MD NO ADDRESS ON FILE Yuri Richter MD NO ADDRESS ON FILE Lumbago (Primary Dx) Social History Tobacco Use Types Packs/Day Years Used Date Smoking Tobacco: Former Cigarettes Q uit: 12/14/2007 Comments:may smoke occassion ally Alcohol Use Standard Drinks/Week Comments No 0 (1 standard drink = 0.6 oz pur e alcohol) Sex and Gender Information Value Date Recorded Sex Assigned at Not on file Legal 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 REGIONAL SALES DIRECTOR Gender Identity Not on file Sexual Orientation Not on file documented as of this encounter Plan of Treatment Not on file documented as of this encounter Visit Diagnoses Diagnosis Lumbago- Primary documented in this encounter Additional Health Concerns Infection Onset Date Last Indicated Resolved Time R/O COVID-19 01/26/2020 01/26/2020 01/28/2020 1:46 AM REGIONAL SALES DIRECTOR documented as of this encounter Care Teams Post Exchange Manager Relationship Specialty Start Date End Date Yesenia Maria DO PCP - General Family Practice 04/18/20 07/14/20 documented as of this encounter
--- OUTSIDE RECORDS SUMMARY | 2024-09-26 10:31 | XMS_ITS | Encounter Summary ---
Author Organization [facility] Address [address] [place] [address] Care Team Providers Care Weight Clerk Name Role Phone Yesenia Maria DO Primary Care Provider [phone] Encounter Details Date Type Department Care Team (Latest Contact Info) Description 05/08/2010 Outpatient Historical [facility] [address] [place] [address] Ajay Rodriguez MD NO ADDRESS ON FILE Thoracic or lumbosacral neuritis or radiculitis, unspecified (Primary Dx) Social History Tobacco Use Types Packs/Day Years Used Date Smoking Tobacco: Every Day Cigarettes Last attempted to quit: 12/14/2007 Smokeless Tobacco: Never Comments:may smoke occassion ally 1/4 pack Alcohol Use Standard Drinks/Week Comments No 0 (1 standard drink = 0.6 oz pur e alcohol) Sex and Gender Information Value Date Recorded Sex Assigned at Not on file Legal 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 REEL FILM INSPECTOR Gender Identity Not on file Sexual Orientation Not on file documented as of this encounter Plan of Treatment Not on file documented as of this encounter Visit Diagnoses Diagnosis Thoracic or lumbosacral neuritis or radiculitis, unspecified- Primary documented in this encounter Additional Health Concerns Infection Onset Date Last Indicated Resolved Time R/O COVID-19 01/26/2020 01/26/2020 01/28/2020 1:46 AM REEL FILM INSPECTOR documented as of this encounter Care Teams Weight Clerk Relationship Specialty Start Date End Date Yesenia Maria DO PCP - General Family Practice 04/18/20 07/14/20 documented as of this encounter
--- OUTSIDE RECORDS SUMMARY | 2024-09-26 10:31 | XMS_ITS | Encounter Summary ---
Author Organization [facility] Address [address] [place] [address] Care Team Providers Care Service Cashier Name Role Phone Yesenia Maria DO Primary Care Provider [phone] Encounter Details Date Type Department Care Team (Late st Contact Info) Description 06/24/2009 Outpatient Historical [facility] [address] [place] [address] Jadyn Hair, PAGopal [address] [place] [phone] Pain in Joint, Shoulder Region (Primary Dx); Sprain and Strain of Other Specified Sites of Shoulder and Upper Arm Social History Tobacco Use Types Packs/Day Years Used Date Smoking Tobacco: Former Cigarettes Q uit: 12/14/2007 Comments:may smoke occassion ally Alcohol Use Standard Drinks/Week Comments No 0 (1 standard drink = 0.6 oz pur e alcohol) Sex and Gender Information Value Date Recorded Sex Assigned at Not on file Legal 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 CLERK OF WORKS Gender Identity Not on file Sexual Orientation Not on file documented as of this encounter Plan of Treatment Not on file documented as of this encounter Visit Diagnoses Diagnosis Pain in joint, shoulder region- Primary Sprain and strain of other specified sites of shoulder and upper arm documented in this encounter Additional Health Concerns Infection Onset Date Last Indicated Resolved Time R/O COVID-19 01/26/2020 01/26/2020 01/28/2020 1:46 AM CLERK OF WORKS documented as of this encounter Care Teams Service Cashier Relationship Specialty Start Date End Date Yesenia Maria DO PCP - General Family Practice 04/18/20 07/14/20 documented as of this encounter
--- OUTSIDE RECORDS SUMMARY | 2024-09-26 10:31 | XMS_ITS | Clinical Summary ---
Author Organization [facility] Address [address] [place] [place] [address] Care Team Providers Care Forest Resource Specialist Name Role Phone Unavailable Primary Care Provider Unavailabl e Allergies Active Allergy Reactions Criticality Noted Date Comments Codeine Nausea and Vomiting Low 04/13/2008 Morphine Rash Low 06/06/2018 Medications albuterol (PROVENTIL,VENTOL IN) 90 mcg/actuation Inhalation Aero Take 2 Puffs by inhalation every 6 hours as needed for Shortness of Breath. 1 Gram 3 12/10/19 12 Active Blood-Glucose Meter (ACCU-CHEK KEMAR) Misc MiscIndications:D iabetes mellitus type II, controlled, with no complications ([facility]) Diagnosis 250.00. Test blood sugar two times a day 1 Each 0 10/12/19 13 Active lancets (ACCU-CHEK FASTCLIX) Misc MiscIndications:D iabetes mellitus type II, controlled, with no complications ([facility]) Diagnosis 250.00. Test blood sugar two times daily 100 Each 5 10/12/19 13 Active TRIAMCINOLONE ACETONIDE (NASACORT BOTH NOSTRIL) Administer in each nostril. Active aspirin (ECOTRIN EC) 81 mg Tablet, Delayed Release (E.C.) Take 1 Tablet (81 mg) by mouth daily. 30 Tablet 1 06/08/19 19 Active Additional Information Patient taking differently:81 mg Oral DAILY,otc, Reported on 04/18/2020 cetirizine (ZyrTEC) 10 mg tablet Take 1 Tablet (10 mg) by mouth daily. 30 Tablet 2 10/19/19 19 Active Additional Information Patient taking differently:10 mg Oral DAILY,OTC, Reported on 04/18/2020 liraglutide (VICTOZA) 0.6 mg/0.1 mL (18 mg/3 mL) Inject 1.8 mg by subcutaneous injection daily before supper. 9 mL 11 02/05/2020 10:54 AM RADIO SCRIPT WRITER 09/22/19 20 Active glimepiride (AMARYL) 4 mg tablet Take 1 Tablet (4 mg) by mouth 2 times daily with meals. 180 Tablet 3 10/19/19 20 Active clopidogreL (PLAVIX) 75 mg Tablet Take 1 Tablet (75 mg) by mouth daily. 90 Tablet 2 01/02/20 20 Active atorvastatin (LIPITOR) 80 mg tablet TAKE 1 TABLET BY MOUTH ONCE DAILY WITH SUPPER 90 Tablet 1 04/15/19 21 Active HYDROcodone-aceta minophen (NORCO) 5-325 mg tablet TAKE 1 TABLET BY MOUTH FIVE TIMES DAILY NEEDED FOR PAIN FOR 30 DAYS FILL ON OR AFTER 02 14 202002/14/20 20 Active gemfibroziL (LOPID) 600 mg tabletIndications :High triglycerides Take 1 Tablet (600 mg) by mouth 2 times daily. 60 Tablet 5 04/23/19 21 Active Insulin [place], Disposable, (BD Ultra-Fine Short Pen Needle) 31 gauge x 5/16 Needle Use with victoza daily and with Tresiba daily 200 Each 2 05/28/19 21 Active hydrOXYzine HCL (ATARAX) 25 mg tablet Take 1 Tablet (25 mg) by mouth 3 times daily as needed for Itching. 90 Tablet 11 06/13/19 21 Active hydroCHLOROthiazi de (MICROZIDE) 12.5 mg capsule Take 1 capsule by mouth once daily 30 Capsule 07/09/19 21 Active metoprolol succinate (TOPROL XL) 25 mg Extended Release 24 hour tablet Take 1 tablet by mouth once daily 90 Tablet 07/16/19 21 Active pantoprazole (PROTONIX) 20 mg Tablet, Delayed Release (E.C.) Take 1 tablet by mouth once daily 90 Tablet 07/16/19 21 Active lisinopriL (PRINIVIL) 20 mg tablet Take 1 tablet by mouth once daily 90 Tablet 07/16/19 21 Active sildenafiL, pulm.hypertension , (REVATIO) 20 mg Tablet Take 1 Tablet (20 mg) by mouth 3 times daily. 12 Tablet 3 07/27/19 Active insulin degludec (Tresiba FlexTouch U-100) 100 unit/mL pen syringeIndication s:Type 2 diabetes mellitus with hyperglycemia, without long-term current use of insulin ([facility]) Inject 14 Units by subcutaneous injection daily at bedtime. 15 mL 1 07/27/19 Active metFORMIN (GLUCOPHAGE) 1,000 mg tabletIndications :Type 2 diabetes mellitus with hyperglycemia, without long-term current use of insulin ([facility]) Take 1 Tablet (1,000 mg) by mouth 2 times daily with meals. 90 Tablet 07/27/19 Active icosapent ethyL (Vascepa) 1 gram CapsuleIndication s:Essential hypertension Take 1 Capsule (1 Gram) by mouth 2 times daily with meals. 180 Capsule 1 07/27/19 Active Hospital, Clinic, or Other Facility Administered Medication Ordered Dose Route Frequency Start Date End Date Status albuterol (PROVENTIL,VENTOLI N) 2.5 mg /3 mL (0.083 %) inhalation solution 2.5 mgIndications:Die Cutter Operator geovanny obstructive pulmonary disease, unspecified COPD type ([facility]) 2.5 mg Inhalation ONE TIME ONLY RESPIRATORY 03/29/2018 Active Active Problems Problem Noted Date Diagnosed Date CKD (chronic kidney disease) stage 3, GFR 30-59 ml/min 09/12/2018 Type 2 diabetes mellitus wit h hyperglycemia, without long-term current use of insulin 06/30/2018 History of CVA (cerebrovascular accident) 2018 Intracranial atherosclerosis distal vertebral and proximal basilar artery 06/07/2018 Dizziness 06/06/2018 MIAH (obstructive sleep apnea) 06/06/2018 Chronic pain of left knee 03/03/2018 Plica syndrome, left knee 03/03/2018 Bone cyst 03/03/2018 Overview (03/03/2018): expanding cyst on the medial facet of the patella overlying the degenerative area Primary osteoarthritis of left knee 03/03/2018 Cigarette dependence 02/05/2015 Severe obesity (BMI 35.0-39.9) with comorbidity 10/08/2014 Anxiety 10/27/2013 Extremity pain,LUE 09/26/2012 Essential hypertension 08/03/2011 Fatty liver 05/18/2011 Kidney cysts,right 05/18/2011 Abdominal bloating 05/07/2011 Disorder of sacrum 03/26/2011 Neck pain,left 03/18/2011 Overview (01/16/2013): November 2012 cervical MRI was unremarkable DM (diabetes mellitus) type II uncontrolled, periph vascular disorder 07/05/2009 Mixed hyperlipidemia 01/04/2009 S/P lumbar fusion 09/28/2008 Overview (09/18/2010): L5-S1 decompression/fusion L4-5 decompression/fusion June 2010 Lumbar radiculopathy 09/28/2008 Overview (02/26/2010): Acute right L4 denervation noted on 02-26-10 EMG CTS (carpal tunnel syndrome) 09/20/2008 Overview (12/10/2010): Bilateral S/p left CTR 10/2010 Resolved Problems Problem Noted Date Diagnosed Date Resolved Date Abdominal bloating 05/07/2011 2 Immunizations Immunization Administration Dates Next Due (ADACEL/BOOSTRIX)(10 YR UP) TDAP VACCINE, 0.5ML, IM 09/12/2018 (PNEUMOVAX 23)(50 YRS UP) PN EUMOCOCCAL POLYSACCHARIDE (PPV23) 0.5 ML, IM 03/28/2018,12/22/2011,12/12/2004 INFLUENZA VACCINE QUADRIVALE NT 6 MOS UP PF IM 03/28/2018 Influenza Seasonal Unspecifi ed Formulation IM 2006,12/12/2004 Influenza Vaccine Split 3+ Yrs PF IM 12/19/2012 Family History Medical History Relation Name Comments High Cholesterol Father Hypertension Father Healthy Mother Amblyopia Neg Hx Blindness Neg Hx Cataract Neg Hx Detachment/Tears Neg Hx Glaucoma Neg Hx Macular Degen Neg Hx Strabismus Neg Hx Relation Name Status Comments Father Alive Mother heart aneuysm Social History Tobacco Use Types Packs/Day Years Used Date Smoking Tobacco: Every Day Cigarettes 0.5 30 Smokeless Tobacco: Never Tobacco Cessation:Ready to Q uit: No; Counseling Given: Yes Comments:less than 1/2 pack per day Alcohol Use Standard Drinks/Week Comments No 0 (1 standard drink = 0.6 oz pur e alcohol) Sex and Gender Information Value Date Recorded Sex Assigned at Not on file Legal 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 RADIO SCRIPT WRITER Gender Identity Not on file Sexual Orientation Not on file Occupation Industry Job Start Date Job End Date Not on file Not on file Not on file Not on file Last Filed Vital Signs Vital Sign Reading Time Taken Comments Blood Pressure 130/86 07/26/2020 8:23 AM CDT Pulse 82 07/26/2020 8:23 AM CDT Temperature 36.2 C (97.2 F) 07/26/2020 8:23 AM CDT Respiratory Rate 12 05/10/2019 8:07 AM RADIO SCRIPT WRITER Oxygen Saturation 98% 07/26/2020 8:23 AM CDT Inhaled Oxygen Concentration - - Weight 108.4 kg (239 lb) 07/26/2020 8:23 AM CDT Height 177.8 cm (5' 10 ) 07/26/2020 8:23 AM CDT Body Mass Index 34.29 07/26/2020 8:23 AM CDT Plan of Treatment Health Maintenance Due Date Last Done Comments COLORECTAL SCREENING 01/15/2008 Colorectal Cancer Screening 01/15/2008 FIT-DNA Q 3 years 01/15/2008 FIT/FOBT Q 1 year 01/15/2008 Flex Sig/CT Colonography Q 5 years 01/15/2008 ZOSTER VACCINE (1 of 2) 2013 DIABETES ANNUAL RETINAL EXAM 11/08/2019, 08/17/2016, 08/17/2016, Additional history exists DIABETES HBA1C Q 6 MONTHS 01/26/20212020, 04/19/2020, 08/28/2019, Additional history exists LDL CHOLESTEROL ANNUAL 04/19/2021 , 05/10/2019, 03/22/2019, Additional history exists DIABETES ANNUAL FOOT EXAM 07/26/20212020, 07/26/2020, 08/18/2016, Additional history exists DIABETES MICROALBUMIN ANNUAL SCREEN 07/26/2021 07/26/2020, 05/10/2019, 03/28/2018, Additional history exists RSV VACCINE (60+ or ) (1 - Risk 60-74 years 1-dose series) 2023 INFLUENZA VACCINE (#1) 2024 , 04/18/2020, 08/02/2019, Additional history exists DTAP/TDAP/TD VACCINES (2 - T d or Tdap) 09/12/2028 09/12/2018 Medical Devices Implanted Type Area Pallet Rectifier Device Identifier Shelf Expiration Date Model / Serial / Lot Log [id number] - Theo Dynesys Lumbar Fixation - 1 - Cord Dynesys 100mm Implanted:Qty: 1 on 06/16/2010 at [facility] Other N/A: Spine Lumbar [employer] 04/15/2013. 100 / NA / [id number] Description:two in package Log [id number] - Theo Dynesys Lumbar Fixation - 1 - Screw Pedicle 6.4x50mm 450 Implanted:Qty: 1 on 06/16/2010 at [facility] Screw N/A: Spine Lumbar [employer] 10/13/2010. 450 / NA / [id number] Description:two screws per p ackage Screw Bio-Tenodesis 7x23mm Ar-[id number] - [id number] Implanted:Qty: 1 on 02/07/2013 by Ajay Bustamante DO at [facility] Screw Left: Shoulder [employer] 06/13/2014 AR-[id number] / / [id number] Description:left Log [id number] - Theo Dynesys Lumbar Fixation - 1 - Spacer Dynesys 45mm 2/Ea ..645 Implanted:Qty: 1 on 06/16/2010 at [facility] Spacer N/A: Spine Lumbar [employer] 08/13/2012.. 645 / NA / [id number] Description:two per package Log [id number] - Theo Dynesys Lumbar Fixation - 1 - Spacer Dynesys 45mm 2/Ea ..645 Implanted:Qty: 1 on 06/16/2010 at [facility] Spacer N/A: Spine Lumbar [employer] 08/13/2012.90633. 645 / NA / [id number] Explanted Type Area Pallet Rectifier Device Identifier Shelf Expiration Date Model / Serial / Lot Log [id number] - Theo Dynesys Lumbar Fixation - 1 - Cord Dynesys 100mm Explanted:Qty: 1 on 06/16/2010 at [facility] Other N/A: Spine Lumbar [employer] 05121.1 00 / NA / NA Description:EXPLANTED EXISTI NG HARDWARE DUE TO NEED FOR EXTENSION PER RADHA THEO REP Log [id number] - Theo Dynesys Lumbar Fixation - 1 - Spacer Dynesys 45mm 2/Ea [id number] Explanted:Qty: 1 on 06/16/2010 at [facility] Spacer N/A: Spine Lumbar [employer] 95324.6 45 / NA / NA Description:EXPLANTED EXISTI NG HARDWARE DUE TO NEED FOR EXTENSION PER RADHA THEO REP Procedures Procedure Name Priority Date/Time Associated Diagnosis Comments HEMOGLOBIN A1C Routine 07/26/2020 8:45 AM CDT Type 2 diabetes mellitus with hyperglycemia, without long-term current use of insulin ([facility]) MICROALBUMIN/CREATI NINE RATIO, RANDOM UR Routine 07/26/2020 8:26 AM CDT Type 2 diabetes mellitus with hyperglycemia, without long-term current use of insulin ([facility]) LIPID PANEL Routine 04/19/2020 8:34 AM RADIO SCRIPT WRITER Essential hypertension from Last 3 Months or Most Recently Relevant to Health Maintenance Results * (ABNORMAL) HEMOGLOBIN A1C (07/26/2020 8:45 AM CDT) HEMOGLOBIN A1C 8.2(H) See Comment % 07/26/2020 6:06 PM CDT [facility] EST. AVG GLUCOSE, A1C 189 mg/dL 07/26/2020 6:06 PM CDT [facility] Blood Venipuncture / Unknown 07/26/2020 8:45 AM CDT 07/26/2020 8:45 AM CDT Narrative [facility] - 07/26/2020 6:06 PM CDT HGB A1C INTERPRETATION NORMAL: <5.7% PRE-DIABETES: 5.7 - 6.4% DIABETES: 6.5% OR GREATER Falsely low A1C measurements can occur when: 1. Anemia and/or hemolytic anemia is present. 2. Hemoglobin variants present. 3. Renal failure. 4. Transfusion of blood product in the last 120 days. We recommend ordering a fructosamine test([id number]) to more accurately assess glycemic status if any of the above conditions are present. Princess Lopez NP CHEMISTRY ORDERABLES Final Result [facility] CLIA# [id number] [place] [address] * (ABNORMAL) MICROALBUMIN/CREATININE RATIO, RANDOM UR (07/26/2020 8:26 AM CDT) MICROALBUMIN, URINE 10.0 No Reference Range mg/dL 07/26/2020 5:37 PM CDT [facility] CREATININE, URINE 51.6 40.0 - 278.0 mg/dL 07/26/2020 5:37 PM CDT [facility] Comment:Reference Range vari es with fluid intake and diet. MICROALBUMIN/ CREAT RATIO, UR 193.8(H) <17.0 mg/g 07/26/2020 5:37 PM CDT [facility] Urine URINE SPECIMEN OBTAINED BY CLEAN CATCH PROCEDURE / Unknown Collection / Unknown 07/26/2020 8:26 AM CDT 07/26/2020 8:26 AM CDT Narrative [facility] - 07/26/2020 5:37 PM CDT Condition Microalbumin/Creat ratio Normal Males <17 Normal Females <25 Microalbuminuria Males 17-299 Microalbuminuria Females 25-299 Overt proteinuria >=300 us Princess Lopez NP URINE ORDERABLES Final Res ult [facility] CLIA# [id number] [place] [address] * (ABNORMAL) LIPID PANEL (04/19/2020 8:34 AM RADIO SCRIPT WRITER) CHOLESTEROL 144 <200 mg/dL 04/19/2020 4:40 PM [facility] TRIGLYCERIDE 582(H) <150 mg/dL 04/19/2020 4:40 PM [facility] HDL 22(L) 40 - 59 mg/dL 04/19/2020 4:40 PM [facility] LDL CALCULATED 04/19/2020 4:40 PM [facility] Comment:Calculated LDL is no t accurate when the Triglyceride value exceeds 400. NON-HDL CHOLESTEROL 122 <130 mg/dL 04/19/2020 4:40 PM [facility] Blood Venipuncture / Unknown 04/19/2020 8:34 AM RADIO SCRIPT WRITER 04/19/2020 8:34 AM [facility] Narrative [facility] - 04/19/2020 4:40 PM RADIO SCRIPT WRITER TOTAL CHOLESTEROL mg/dL Desirable <200 Borderline high 200-239 High >=240 TRIGLYCERIDES mg/dL Normal <150 Borderline high 150-199 High 200-499 Very high >=500 HDL CHOLESTEROL mg/dL Low <40 Normal 40-59 Desirable >=60 NON HDL CHOLESTEROL mg/dL Optimal <130 Near Optimal 130-159 Borderline High 160-189 Very High >=190 CALCULATED LDL mg/dL LDL <70, OPTIMAL if have Atherosclerotic cardiovascular disease (ASCVD) or intermediate or higher (>7.5%) 10 year risk of ASCVD including most adults with diabetes. LDL <100, Optimal in adult patients with low (<7.5%) 10 year ASCVD risk LDL 100-160, Suboptimal LDL >160, High LDL >190, Very high ATPIII Guidelines Reference Ranges for Lipid Panels (NCEP/AMA) . Princess Lopez NP CHEMISTRY ORDERABLES Final Result [facility] CLIA# [id number] [address] [place] [address] from Last 3 Months or Most Recently Relevant to Health Maintenance Insurance MEDICAID [place] MEDICARE PART A AND B RX [facility] Medicare Part D RX [employer] Medicaid RX [employer] (INTERNAL) [facility] Internal Plans Advance Directives For more information, please contact: [phone] * Full Code (Latest Code Status on File) Date Activated Date Inactivated Comments 06/06/2018 2:20 AM 06/07/2018 10:18 PM * Full Code Date Activated Date Inactivated Comments 04/03/2016 7:47 AM 04/03/2016 1:56 PM * Full Code Date Activated Date Inactivated Comments 04/03/2016 7:47 AM 04/03/2016 7:47 AM * Full Code Date Activated Date Inactivated Comments 02/07/2013 10:33 AM 02/07/2013 4:38 PM * Full Code Date Activated Date Inactivated Comments 02/07/2013 7:14 AM 02/07/2013 10:33 AM
--- OUTSIDE RECORDS SUMMARY | 2024-09-26 10:31 | XMS_ITS | Encounter Summary ---
Author Organization [facility] Address [address] [place] [address] Care Team Providers Care Supervisory Air Intercept Controller Name Role Phone Yesenia Maria DO Primary Care Provider [phone] Encounter Details Date Type Department Care Team (Latest Contact Info) Description 03/26/2006 Outpatient [facility] Ear, Nose and Throat [address] [place] [id number] Steve Eugene MD NO ADDRESS ON FILE Follow-Up Examination, Following Unspecified Surgery (Primary Dx) Social History Tobacco Use Types Packs/Day Years Used Date Smoking Tobacco: Never Assessed Sex and Gender Information Value Date Recorded Sex Assigned at Not on file Legal 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 LIVESTOCK EXHIBITOR Gender Identity Not on file Sexual Orientation Not on file documented as of this encounter Plan of Treatment Not on file documented as of this encounter Visit Diagnoses Diagnosis Follow-up examination, following unspecified surgery- Primary documented in this encounter Additional Health Concerns Infection Onset Date Last Indicated Resolved Time R/O COVID-19 01/26/2020 01/26/2020 01/28/2020 1:46 AM LIVESTOCK EXHIBITOR documented as of this encounter Care Teams Supervisory Air Intercept Controller Relationship Specialty Start Date End Date Yesenia Maria DO PCP - General Family Practice 04/18/20 07/14/20 documented as of this encounter
--- OUTSIDE RECORDS SUMMARY | 2024-09-26 10:31 | XMS_ITS | Encounter Summary ---
Author Organization [facility] Address [address] [place] [address] Care Team Providers Care Addiction Social Worker Name Role Phone Yesenia Maria DO Primary Care Provider [phone] Encounter Details Date Type Department Care Team (Latest Contact Info) Description 04/05/2006 Outpatient [facility] Ear[facility] Nose and Th[facility]at [address] [place] [id number] Steve Eugene MD NO ADDRESS ON FILE Follow-Up Examination, Following Unspecified Surgery (Primary Dx) Social History Tobacco Use Types Packs/Day Years Used Date Smoking Tobacco: Never Assessed Sex and Gender Information Value Date Recorded Sex Assigned at Not on file Legal 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 C IRON WORKER Gender Identity Not on file Sexual Orientation Not on file documented as of this encounter Plan of Treatment Not on file documented as of this encounter Visit Diagnoses Diagnosis Follow-up examination, following unspecified surgery- Primary documented in this encounter Additional Health Concerns Infection Onset Date Last Indicated Resolved Time R/O COVID-19 01/26/2020 01/26/2020 01/28/2020 1:46 AM C IRON WORKER documented as of this encounter Care Teams Addiction Social Worker Relationship Specialty Start Date End Date Yesenia Maria DO PCP - General Family Practice 04/18/20 07/14/20 documented as of this encounter
--- OUTSIDE RECORDS SUMMARY | 2024-09-26 10:31 | XMS_ITS | Encounter Summary ---
Author Organization [facility] Address [address] [place] [address] Care Team Providers Care Armhole Raiser Lockstitch Name Role Phone Yesenia Maria Primary Care Provider [phone] Reason for Referral * Outpatient Services (Routine) - Closed Specialty Diagnoses / Procedures Referred By Sean t Referred To Contact Diagnoses Intervertebral disc disorder with radiculopathy of lumbosacral region Postlaminectomy syndrome, lumbar region Procedures MRI LUMBAR W WO CONTRAST Lorin Stanton FNP [address] [place] [address] Phone: tel: fax: [facility] Pre-Registration [place] CALL TO MAKE APPOINTMENT ONLY [address] [place] [address] Phone: tel: fax: Referral ID Status Reason Start Date Expiration Date V isits Requested Visits Authorized [id number] Closed F MC TO SCHEDULE (SGF) 01/25/2017 02/25/2018 1 1 RPRETER FOR THE DEAF Encounter Details Date Type Department Care Team (Latest Contact Info) Description 01/25/2017 Ancillary Orders [facility] Pre-Registration [place] CALL TO MAKE APPOINTMENT ONLY [address] [place] [address] Lorin Stanton FNP [address] [place] [phone] Intervertebral disc disorder with radiculopathy of lumbosacral region; Postlaminectomy syndrome, lumbar region Social History Tobacco Use Types Packs/Day Years Used Date Smoking Tobacco: Every Day Cigarettes 0.5 30 Smokeless Tobacco: Never Comments:less than 1/2 pack per day Alcohol Use Standard Drinks/Week Comments No 0 (1 standard drink = 0.6 oz pur e alcohol) Sex and Gender Information Value Date Recorded Sex Assigned at Not on file Legal 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 INTERPRETER FOR THE DEAF Gender Identity Not on file Sexual Orientation Not on file Occupation Industry Job Start Date Job End Date Not on file Not on file Not on file Not on file documented as of this encounter Plan of Treatment Not on file documented as of this encounter Results * MRI LUMBAR W WO CONTRAST (02/15/2017 7:57 AM INTERPRETER FOR THE DEAF) Anatomical Region Laterality Modality Spine Magnetic Resonan ce 02/15/2017 7:58 AM INTERPRETER FOR THE DEAF Impressions 02/15/2017 4:29 PM INTERPRETER FOR THE DEAF IMPRESSION: Please see below. Exam: MRI LUMBAR W WO CONTRAST Date/Time of Exam: 02/15/2017 7:57 AM Reason For Exam: Intervertebral disc disorder with radiculopathy of lumbosacral region,Postlaminectomy syndrome, lumbar region. Technique: Multiplanar, multisequence MR images were obtained through the lumbar spine prior to and following GADOBENATE DIMEGLUMINE 529 MG/ML(0.1 MMOL/0.2 ML) INTRAVENOUS SOLUTION Given:20 mL. Comparison: May 26, 2013. FINDINGS: Lumbar alignment is stable. Stable intact appearing L4-S1 dorsal decompression and hardware stabilization. Central canal remains patent across these levels. Stable relatively mild disc degeneration above the fusion without discogenic stenosis or focal neural impingement. Central canal over the fused levels remains patent. There is stable residual neural foraminal narrowing mild to moderate in degree at the L4-5 and L5-S1 levels. There is no pathologic enhancement. IMPRESSION: Stable postoperative lumbar spine as above. Narrative Procedure Note Braden Ramon DO - 02/15/2017 IMPRESSION: Please see below. Exam: MRI LUMBAR W WO CONTRAST Date/Time of Exam: 02/15/2017 7:57 AM Reason For Exam: Intervertebral disc disorder with radiculopathy of lumbosacral region,Postlaminectomy syndrome, lumbar region. Technique: Multiplanar, multisequence MR images were obtained through the lumbar spine prior to and following GADOBENATE DIMEGLUMINE 529 MG/ML(0.1 MMOL/0.2 ML) INTRAVENOUS SOLUTION Given:20 mL. Comparison: May 26, 2013. FINDINGS: Lumbar alignment is stable. Stable intact appearing L4-S1 dorsal decompression and hardware stabilization. Central canal remains patent across these levels. Stable relatively mild disc degeneration above the fusion without discogenic stenosis or focal neural impingement. Central canal over the fused levels remains patent. There is stable residual neural foraminal narrowing mild to moderate in degree at the L4-5 and L5-S1 levels. There is no pathologic enhancement. IMPRESSION: Stable postoperative lumbar spine as above. Lorin Stanton [facility] MR ORDERABLES Final Resul t documented in this encounter Visit Diagnoses Diagnosis Intervertebral disc disorder with radiculopathy of lumbosacral region Thoracic or lumbosacral neuritis or radiculitis, unspecified Postlaminectomy syndrome, lumbar region Intervertebral disc disorder with radiculopathy of lumbosacral region Thoracic or lumbosacral neuritis or radiculitis, unspecified Postlaminectomy syndrome, lumbar region documented in this encounter Additional Health Concerns Infection Onset Date Last Indicated Resolved Time R/O COVID-19 01/26/2020 01/26/2020 01/28/2020 1:46 AM INTERPRETER FOR THE DEAF documented as of this encounter Care Teams Armhole Raiser Lockstitch Relationship Specialty Start Date End Date Yesenia Maria DO PCP - General Family Practice 04/18/20 07/14/20 documented as of this encounter
--- OUTSIDE RECORDS SUMMARY | 2024-09-26 10:31 | XMS_ITS | Encounter Summary ---
Author Organization [facility] Address [address] [place] [address] Care Team Providers Care Embossing Clerk Name Role Phone Yesenia Maria DO Primary Care Provider [phone] Encounter Details Date Type Department Care Team (Latest Contact Info) Description 12/07/2005 Outpatient Historical [facility] Medicine [address] [place] [phone] Yuri Richter MD NO ADDRESS ON FILE Acute Upper Respiratory Infections of Unspecified Site (Primary Dx) Social History Tobacco Use Types Packs/Day Years Used Date Smoking Tobacco: Never Assessed Sex and Gender Information Value Date Recorded Sex Assigned at Not on file Legal 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 ENVIRONMENT COORDINATOR Gender Identity Not on file Sexual Orientation Not on file documented as of this encounter Plan of Treatment Not on file documented as of this encounter Visit Diagnoses Diagnosis Acute upper respiratory infections of unspecified site- Primary documented in this encounter Additional Health Concerns Infection Onset Date Last Indicated Resolved Time R/O COVID-19 01/26/2020 01/26/2020 01/28/2020 1:46 AM ENVIRONMENT COORDINATOR documented as of this encounter Care Teams Embossing Clerk Relationship Specialty Start Date End Date Yesenia Maria DO PCP - General Family Practice 04/18/20 07/14/20 documented as of this encounter
--- OUTSIDE RECORDS SUMMARY | 2024-09-26 10:31 | XMS_ITS | Encounter Summary ---
Author Organization [facility] Address [address] [place] [address] Care Team Providers Care Sales Driver Name Role Phone MariaYesenia dawson Primary Care Provider [phone] Encounter Details Date Type Department Care Team (Late st Contact Info) Description 12/19/2012 Ancillary Orders [facility] [place] [address] Ajay Bustamante, DO [address] [place] [address] Shoulder pain (Primary Dx) Social History Tobacco Use Types Packs/Day Years Used Date Smoking Tobacco: Every Day Cigarettes 0.5 30 Started: 06/04/1981; Last attempted to quit: 06/05/2011 Smokeless Tobacco: Never Comments:has smoked 1 pack i n the last 9 weeks. 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 Minimal degenerative changes of the glenohumeral joint. Ajay Bustamante D.O. [facility] CDM:didier Procedure Note Ajay Bustamante DO - 12/29/2012 X-RAYS: The x-rays of the left shoulder were reviewed and revealed Grade 3acromion with mild degeneration of the AC joint. Minimal degenerativechanges of the glenohumeral joint. Ajay Bustamante D.O. [facility] CDM:didier Ajay Bustamante DO DIAGNOSTIC IMAGING ORDERABLES Final Result documented in this encounter Visit Diagnoses Diagnosis Shoulder pain- Primary Pain in joint, shoulder region documented in this encounter Additional Health Concerns Infection Onset Date Last Indicated Resolved Time R/O COVID-19 01/26/2020 01/26/2020 01/28/2020 1:46 AM PRACTICAL MINISTRIES PROFESSOR documented as of this encounter Care Teams Sales Driver Relationship Specialty Start Date End Date Yesenia Maria DO PCP - General Family Practice 04/18/20 07/14/20 documented as of this encounter
--- OUTSIDE RECORDS SUMMARY | 2024-09-26 10:31 | XMS_ITS | Encounter Summary ---
Author Organization [facility] Address [address] [place] [address] Care Team Providers Care V Belt Skiver Name Role Phone Yesenia Maria DO Primary Care Provider [phone] Encounter Details Date Type Department Care Team (Latest Contact Info) Description 10/16/2005 Outpatient Historical [facility] Medicine [address] [place] [phone] Yuri Richter MD NO ADDRESS ON FILE Pure Hypercholesterolem (Primary Dx); Unspecified Essential Hypertension Social History Tobacco Use Types Packs/Day Years Used Date Smoking Tobacco: Never Assessed Sex and Gender Information Value Date Recorded Sex Assigned at Not on file Legal 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 ENT NURSE Gender Identity Not on file Sexual Orientation Not on file documented as of this encounter Plan of Treatment Not on file documented as of this encounter Visit Diagnoses Diagnosis Pure hypercholesterolem- Primary Pure hypercholesterolemia Unspecified essential hypertension documented in this encounter Additional Health Concerns Infection Onset Date Last Indicated Resolved Time R/O COVID-19 01/26/2020 01/26/2020 01/28/2020 1:46 AM ENT NURSE documented as of this encounter Care Teams V Belt Skiver Relationship Specialty Start Date End Date Yesenia Maria DO PCP - General Family Practice 04/18/20 07/14/20 documented as of this encounter
--- OUTSIDE RECORDS SUMMARY | 2024-09-26 10:31 | XMS_ITS | Encounter Summary ---
Author Organization [facility] Address [address] [place] [address] Care Team Providers Care Coat Presser Name Role Phone Yesenia Maria DO Primary Care Provider [phone] Encounter Details Date Type Department Care Team (Latest Contact Info) Description 07/24/2005 Outpatient Historical [facility] [place] [address] Loyd Bacon, OD [address] [place] [address] Nuclear Sclerosis (Primary Dx) Social History Tobacco Use Types Packs/Day Years Used Date Smoking Tobacco: Never Assessed Sex and Gender Information Value Date Recorded Sex Assigned at Not on file Legal 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 GATE KEEPER Gender Identity Not on file Sexual Orientation Not on file documented as of this encounter Plan of Treatment Not on file documented as of this encounter Visit Diagnoses Diagnosis Nuclear sclerosis- Primary Senile nuclear sclerosis documented in this encounter Additional Health Concerns Infection Onset Date Last Indicated Resolved Time R/O COVID-19 01/26/2020 01/26/2020 01/28/2020 1:46 AM GATE KEEPER documented as of this encounter Care Teams Coat Presser Relationship Specialty Start Date End Date Yesenia Maria DO PCP - General Family Practice 04/18/20 07/14/20 documented as of this encounter
--- OUTSIDE RECORDS SUMMARY | 2024-09-26 10:32 | XMS_ITS | Encounter Summary ---
Author Organization [facility] Address [address] [place] [address] Care Team Providers Care Cementer Oil Well Name Role Phone Yesenia Maria DO Primary Care Provider [phone] Encounter Details Date Type Department Care Team (Latest Contact Info) Description 09/04/2002 Outpatient Historical [facility] Medicine [address] [place] [address] Yuri Richter MD NO ADDRESS ON FILE DIABETES UNCOMPL ADULT-TYPE II (CMS/HCC) (Primary Dx); Pure hypercholesterolem; HYPERTENSION NOS Social History Tobacco Use Types Packs/Day Years Used Date Smoking Tobacco: Never Assessed Sex and Gender Information Value Date Recorded Sex Assigned at Not on file Legal 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 Gender Identity Not on file Sexual Orientation Not on file documented as of this encounter Plan of Treatment Not on file documented as of this encounter Visit Diagnoses Diagnosis Type II or unspecified type diabetes mellitus without mention of complication, not stated as uncontrolled- Primary Pure hypercholesterolem Pure hypercholesterolemia Unspecified essential hypertension documented in this encounter Additional Health Concerns Infection Onset Date Last Indicated Resolved Time R/O COVID-19 01/26/2020 01/26/2020 01/28/2020 1:46 AM KEYMODULE ASSEMBLY MACHINE TENDER documented as of this encounter Care Teams Cementer Oil Well Relationship Specialty Start Date End Date Yesenia Maria DO PCP - General Family Practice 04/18/20 07/14/20 documented as of this encounter
--- OUTSIDE RECORDS SUMMARY | 2024-09-26 10:32 | XMS_ITS | Encounter Summary ---
Author Organization [facility] Address [address] [place] [address] Care Team Providers Care Online Affiliate Marketing Manager Name Role Phone Yeseina Maria DO Primary Care Provider [phone] Encounter Details Date Type Department Care Team (Latest Contact Info) Description 05/20/2004 Outpatient Historical [address] [place] [address] [place] [phone] Melly Jameson DO NO ADDRESS ON FILE ACUTE SINUSITIS NOS (Primary Dx) Social History Tobacco Use Types Packs/Day Years Used Date Smoking Tobacco: Never Assessed Sex and Gender Information Value Date Recorded Sex Assigned at Not on file Legal 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 ZOO KEEPER Gender Identity Not on file Sexual Orientation Not on file documented as of this encounter Plan of Treatment Not on file documented as of this encounter Visit Diagnoses Diagnosis Acute sinusitis, unspecified- Primary documented in this encounter Additional Health Concerns Infection Onset Date Last Indicated Resolved Time R/O COVID-19 01/26/2020 01/26/2020 01/28/2020 1:46 AM ZOO KEEPER documented as of this encounter Care Teams Online Affiliate Marketing Manager Relationship Specialty Start Date End Date Yesenia Maria DO PCP - General Family Practice 04/18/20 07/14/20 documented as of this encounter
--- OUTSIDE RECORDS SUMMARY | 2024-09-26 10:32 | XMS_ITS | Encounter Summary ---
Author Organization [facility] Address [address] [place] [address] Care Team Providers Care Product Mgmt Dev Manager Name Role Phone Yesenia Maria DO Primary Care Provider [phone] Encounter Details Date Type Department Care Team (Late st Contact Info) Description 02/15/2007 [facility] [address] [place] [phone] Jacqueline Thakkar MD [address] [phone] Social History Tobacco Use Types Packs/Day Years Used Date Smoking Tobacco: Never Assessed Sex and Gender Information Value Date Recorded Sex Assigned at Not on file Legal 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
--- OUTSIDE RECORDS SUMMARY | 2024-09-26 10:32 | XMS_ITS | Encounter Summary ---
Author Organization [facility] Address [address] [place] [address] Care Team Providers Care Aquatic Laborer Name Role Phone Yesenia Maria DO Primary Care Provider [phone] Encounter Details Date Type Department Care Team (Latest Contact Info) Description 06/25/2003 Outpatient Historical [facility] Medicine [address] [place] [phone] Yuri Richter MD NO ADDRESS ON FILE FX ANKLE NOS-CLOSED (Primary Dx) Social History Tobacco Use Types Packs/Day Years Used Date Smoking Tobacco: Never Assessed Sex and Gender Information Value Date Recorded Sex Assigned at Not on file Legal 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 HOTEL STAFF MEMBER Gender Identity Not on file Sexual Orientation Not on file documented as of this encounter Plan of Treatment Not on file documented as of this encounter Visit Diagnoses Diagnosis Unspecified closed fracture of ankle- Primary documented in this encounter Additional Health Concerns Infection Onset Date Last Indicated Resolved Time R/O COVID-19 01/26/2020 01/26/2020 01/28/2020 1:46 AM HOTEL STAFF MEMBER documented as of this encounter Care Teams Aquatic Laborer Relationship Specialty Start Date End Date Yesenia Maria DO PCP - General Family Practice 04/18/20 07/14/20 documented as of this encounter
--- OUTSIDE RECORDS SUMMARY | 2024-09-26 10:32 | XMS_ITS | Encounter Summary ---
Author Organization [facility] Address [address] [place] [address] Care Team Providers Care Nutrition Internship Name Role Phone Yesenia Maria DO Primary Care Provider [phone] Encounter Details Date Type Department Care Team (Latest Contact Info) Description 08/19/2006 Outpatient Historical [facility] [place] [phone] Ajay Bustamante, DO [address] [place] [address] Unspecified Site of Ankle Sprain and Strain (Primary Dx) Social History Tobacco Use Types Packs/Day Years Used Date Smoking Tobacco: Never Assessed Sex and Gender Information Value Date Recorded Sex Assigned at Not on file Legal 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 O AND M SUPERVISOR Gender Identity Not on file Sexual Orientation Not on file documented as of this encounter Plan of Treatment Not on file documented as of this encounter Visit Diagnoses Diagnosis Sprain of ankle, unspecified site- Primary documented in this encounter Additional Health Concerns Infection Onset Date Last Indicated Resolved Time R/O COVID-19 01/26/2020 01/26/2020 01/28/2020 1:46 AM O AND M SUPERVISOR documented as of this encounter Care Teams Nutrition Internship Relationship Specialty Start Date End Date Yesenia Maria DO PCP - General Family Practice 04/18/20 07/14/20 documented as of this encounter
--- OUTSIDE RECORDS SUMMARY | 2024-09-26 10:32 | XMS_ITS | Encounter Summary ---
Author Organization [facility] Address [address] [place] [address] Care Team Providers Care Sales Support Coordinator Name Role Phone Yesenia Maria DO Primary Care Provider [phone] Encounter Details Date Type Department Care Team (Late st Contact Info) Description 08/15/2006 Outpatient Historical [address] [place] [phone] Maya Shetty DO [address] [place] [address] [address] [place] [address] Unspecified Closed Fracture of Ankle (Primary Dx) Social History Tobacco Use Types Packs/Day Years Used Date Smoking Tobacco: Never Assessed Sex and Gender Information Value Date Recorded Sex Assigned at Not on file Legal 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 JTAC Gender Identity Not on file Sexual Orientation Not on file documented as of this encounter Plan of Treatment Not on file documented as of this encounter Visit Diagnoses Diagnosis Unspecified closed fracture of ankle- Primary documented in this encounter Additional Health Concerns Infection Onset Date Last Indicated Resolved Time R/O COVID-19 01/26/2020 01/26/2020 01/28/2020 1:46 AM JTAC documented as of this encounter Care Teams Sales Support Coordinator Relationship Specialty Start Date End Date Yesenia Maria DO PCP - General Family Practice 04/18/20 07/14/20 documented as of this encounter
--- OUTSIDE RECORDS SUMMARY | 2024-09-26 10:32 | XMS_ITS | Encounter Summary ---
Author Organization [facility] Address [address] [place] [address] Care Team Providers Care Scorer Single Name Role Phone Yesenia Maria DO Primary Care Provider Encounter Details Date Type Department Care Team (Latest Contact Info) Description 04/02/2003 Outpatient Historical [facility] Medicine [address] [place] [phone] Yuri Richter MD NO ADDRESS ON FILE ACUTE BRONCHITIS (Primary Dx) Social History Tobacco Use Types Packs/Day Years Used Date Smoking Tobacco: Never Assessed Sex and Gender Information Value Date Recorded Sex Assigned at Not on file Legal 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 SHEARING SHED HAND Gender Identity Not on file Sexual Orientation Not on file documented as of this encounter Plan of Treatment Not on file documented as of this encounter Visit Diagnoses Diagnosis Acute bronchitis- Primary documented in this encounter Additional Health Concerns Infection Onset Date Last Indicated Resolved Time R/O COVID-19 01/26/2020 01/26/2020 01/28/2020 1:46 AM SHEARING SHED HAND documented as of this encounter Care Teams Scorer Single Relationship Specialty Start Date End Date Yesenia Maria DO PCP - General Family Practice 04/18/20 07/14/20 documented as of this encounter
--- OUTSIDE RECORDS SUMMARY | 2024-09-26 10:32 | XMS_ITS | Encounter Summary ---
Author Organization [facility] Address [address] [place] [address] Care Team Providers Care Quill Fixer Name Role Phone Yesenia Maria DO Primary Care Provider [phone] Encounter Details Date Type Department Care Team (Latest Contact Info) Description 04/04/2003 Outpatient Historical [facility] Medicine [address] [place] [phone] Yuri Richter MD NO ADDRESS ON FILE ACUTE BRONCHITIS (Primary Dx) Social History Tobacco Use Types Packs/Day Years Used Date Smoking Tobacco: Never Assessed Sex and Gender Information Value Date Recorded Sex Assigned at Not on file Legal 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 HEAD CHARGER Gender Identity Not on file Sexual Orientation Not on file documented as of this encounter Plan of Treatment Not on file documented as of this encounter Visit Diagnoses Diagnosis Acute bronchitis- Primary documented in this encounter Additional Health Concerns Infection Onset Date Last Indicated Resolved Time R/O COVID-19 01/26/2020 01/26/2020 01/28/2020 1:46 AM HEAD CHARGER documented as of this encounter Care Teams Quill Fixer Relationship Specialty Start Date End Date Yesenia Maria DO PCP - General Family Practice 04/18/20 07/14/20 documented as of this encounter
--- OUTSIDE RECORDS SUMMARY | 2024-09-26 10:32 | XMS_ITS | Encounter Summary ---
Author Organization [facility] Address [address] [place] [address] Care Team Providers Care Floor Covering Installer Name Role Phone Yesenai Maria DO Primary Care Provider [phone] Encounter Details Date Type Department Care Team (Late st Contact Info) Description 10/06/2006 Outpatient Historical [facility] Orthopedics[address] [place] [phone] Jadyn Hair, PAIvaniaC [address] [place] [address] Unspecified Site of Ankle Sprain and Strain (Primary Dx) Social History Tobacco Use Types Packs/Day Years Used Date Smoking Tobacco: Never Assessed Sex and Gender Information Value Date Recorded Sex Assigned at Not on file Legal 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 MANUAL 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 Gender Identity Not on file Sexual Orientation Not on file documented as of this encounter Plan of Treatment Not on file documented as of this encounter Visit Diagnoses Diagnosis Sprain of ankle, unspecified site- Primary documented in this encounter Additional Health Concerns Infection Onset Date Last Indicated Resolved Time R/O COVID-19 01/26/2020 01/26/2020 01/28/2020 1:46 AM MANUAL LATHE MACHINIST documented as of this encounter Care Teams Floor Covering Installer Relationship Specialty Start Date End Date Yesenia Maria DO PCP - General Family Practice 04/18/20 07/14/20 documented as of this encounter
--- OUTSIDE RECORDS SUMMARY | 2024-09-26 10:32 | XMS_ITS | Encounter Summary ---
Author Organization [facility] Address [address] [place] [address] Care Team Providers Care Stack Attendant Name Role Phone Yesenia Maria DO Primary Care Provider [phone] Encounter Details Date Type Department Care Team (Latest Contact Info) Description 11/06/2004 Outpatient Historical [facility] Medicine [address] [place] [phone] Gregor Bro MD NO ADDRESS ON FILE SHORTNESS OF BREATH (Primary Dx) Social History Tobacco Use Types Packs/Day Years Used Date Smoking Tobacco: Never Assessed Sex and Gender Information Value Date Recorded Sex Assigned at Not on file Legal 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 COVERAGE ANALYST Gender Identity Not on file Sexual Orientation Not on file documented as of this encounter Plan of Treatment Not on file documented as of this encounter Visit Diagnoses Diagnosis Shortness of breath- Primary documented in this encounter Additional Health Concerns Infection Onset Date Last Indicated Resolved Time R/O COVID-19 01/26/2020 01/26/2020 01/28/2020 1:46 AM COVERAGE ANALYST documented as of this encounter Care Teams Stack Attendant Relationship Specialty Start Date End Date Yesenia Maria DO PCP - General Family Practice 04/18/20 07/14/20 documented as of this encounter
--- OUTSIDE RECORDS SUMMARY | 2024-09-26 10:32 | XMS_ITS | Encounter Summary ---
Author Organization [facility] Address [address] [place] [address] Care Team Providers Care Can Intake Worker Name Role Phone Yesenia Maria DO Primary Care Provider [phone] Encounter Details Date Type Department Care Team (Latest Contact Info) Description 07/02/2004 Outpatient Historical [facility] Medicine [address] [place] [address] Yuri Richter MD NO ADDRESS ON FILE ASCVD (Primary Dx); DIABETES MELLITUS TYPE II-UNCOMPL (CMS/[facility]); Pure hypercholesterolem; BACKACHE NOS Social History Tobacco Use Types Packs/Day Years Used Date Smoking Tobacco: Never Assessed Sex and Gender Information Value Date Recorded Sex Assigned at Not on file Legal 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 DIESEL TRACTOR OPERATOR Gender Identity Not on file Sexual Orientation Not on file documented as of this encounter Plan of Treatment Not on file documented as of this encounter Visit Diagnoses Diagnosis ASCVD- Primary Unspecified cardiovascular disease Type II or unspecified type diabetes mellitus without mention of complication, not stated as uncontrolled Pure hypercholesterolem Pure hypercholesterolemia Backache, unspecified documented in this encounter Additional Health Concerns Infection Onset Date Last Indicated Resolved Time R/O COVID-19 01/26/2020 01/26/2020 01/28/2020 1:46 AM DIESEL TRACTOR OPERATOR documented as of this encounter Care Teams Can Intake Worker Relationship Specialty Start Date End Date Yesenia Maria DO PCP - General Family Practice 04/18/20 07/14/20 documented as of this encounter
--- OUTSIDE RECORDS SUMMARY | 2024-09-26 10:32 | XMS_ITS | Encounter Summary ---
Author Organization [facility] Address [address] [place] [address] Care Team Providers Care Stretch Press Operator Name Role Phone Yesenia Maria DO Primary Care Provider Encounter Details Date Type Department Care Team (Latest Contact Info) Description 11/10/2004 Outpatient Historical [facility] Medicine [address] [place] [phone] Gregor Bro MD NO ADDRESS ON FILE ACUTE BRONCHITIS (Primary Dx) Social History Tobacco Use Types Packs/Day Years Used Date Smoking Tobacco: Never Assessed Sex and Gender Information Value Date Recorded Sex Assigned at Not on file Legal 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 SEGMENT ASSEMBLER Gender Identity Not on file Sexual Orientation Not on file documented as of this encounter Plan of Treatment Not on file documented as of this encounter Visit Diagnoses Diagnosis Acute bronchitis- Primary documented in this encounter Additional Health Concerns Infection Onset Date Last Indicated Resolved Time R/O COVID-19 01/26/2020 01/26/2020 01/28/2020 1:46 AM SEGMENT ASSEMBLER documented as of this encounter Care Teams Stretch Press Operator Relationship Specialty Start Date End Date Yesenia Maria DO PCP - General Family Practice 04/18/20 07/14/20 documented as of this encounter
--- OUTSIDE RECORDS SUMMARY | 2024-09-26 10:32 | XMS_ITS | Encounter Summary ---
Author Organization [facility] Address [address] [place] [address] Care Team Providers Care Financial Quantitative Analyst Name Role Phone Yesenia Maria DO Primary Care Provider Encounter Details Date Type Department Care Team (Latest Contact Info) Description 01/09/2003 Outpatient Historical [facility] Medicine [address] [place] [phone] Yuri Richter MD NO ADDRESS ON FILE Pure hypercholesterolem (Primary Dx); HYPERTENSION NOS Social History Tobacco Use Types Packs/Day Years Used Date Smoking Tobacco: Never Assessed Sex and Gender Information Value Date Recorded Sex Assigned at Not on file Legal 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 CONCRETE FINISHER APPRENTICE Gender Identity Not on file Sexual Orientation Not on file documented as of this encounter Plan of Treatment Not on file documented as of this encounter Visit Diagnoses Diagnosis Pure hypercholesterolem- Primary Pure hypercholesterolemia Unspecified essential hypertension documented in this encounter Additional Health Concerns Infection Onset Date Last Indicated Resolved Time R/O COVID-19 01/26/2020 01/26/2020 01/28/2020 1:46 AM CONCRETE FINISHER APPRENTICE documented as of this encounter Care Teams Financial Quantitative Analyst Relationship Specialty Start Date End Date Yesenia Maria DO PCP - General Family Practice 04/18/20 07/14/20 documented as of this encounter
--- OUTSIDE RECORDS SUMMARY | 2024-09-26 10:32 | XMS_ITS | Encounter Summary ---
Author Organization [facility] Address [address] [place] [address] Care Team Providers Care Assignment Manager Name Role Phone Yesenia Maria DO Primary Care Provider [phone] Encounter Details Date Type Department Care Team (Latest Contact Info) Description 11/18/2004 Outpatient Historical [facility] Medicine [address] [place] [phone] Gregor Bro MD NO ADDRESS ON FILE ASTHMA UNSPECIFIED (Primary Dx) Social History Tobacco Use Types Packs/Day Years Used Date Smoking Tobacco: Never Assessed Sex and Gender Information Value Date Recorded Sex Assigned at Not on file Legal 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 MALLET CUTTER Gender Identity Not on file Sexual Orientation Not on file documented as of this encounter Plan of Treatment Not on file documented as of this encounter Visit Diagnoses Diagnosis Unspecified asthma(493.90)- Primary Unspecified asthma documented in this encounter Additional Health Concerns Infection Onset Date Last Indicated Resolved Time R/O COVID-19 01/26/2020 01/26/2020 01/28/2020 1:46 AM MALLET CUTTER documented as of this encounter Care Teams Assignment Manager Relationship Specialty Start Date End Date Yesenia Maria DO PCP - General Family Practice 04/18/20 07/14/20 documented as of this encounter
--- OUTSIDE RECORDS SUMMARY | 2024-09-26 10:32 | XMS_ITS | Encounter Summary ---
Author Organization [facility] Address [address] [place] [address] Care Team Providers Care Remote Recruiter Name Role Phone Yesenia Maria DO Primary Care Provider [phone] Encounter Details Date Type Department Care Team (Latest Contact Info) Description 03/01/2006 Outpatient Historical [facility] Ear, Nose and Throat- [address] [address] [place] [address] Steve Eugene MD NO ADDRESS ON FILE Hypertrph Nasal Turbinat (Primary Dx); Deviated Nasal Septum; Unspecified Sinusitis (Chronic) Social History Tobacco Use Types Packs/Day Years Used Date Smoking Tobacco: Never Assessed Sex and Gender Information Value Date Recorded Sex Assigned at Not on file Legal 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 MOBILITY MANAGER Gender Identity Not on file Sexual Orientation Not on file documented as of this encounter Plan of Treatment Not on file documented as of this encounter Visit Diagnoses Diagnosis Hypertrph nasal turbinat- Primary Hypertrophy of nasal turbinates Deviated nasal septum Unspecified sinusitis (chronic) documented in this encounter Additional Health Concerns Infection Onset Date Last Indicated Resolved Time R/O COVID-19 01/26/2020 01/26/2020 01/28/2020 1:46 AM MOBILITY MANAGER documented as of this encounter Care Teams Remote Recruiter Relationship Specialty Start Date End Date Yesenia Maria DO PCP - General Family Practice 04/18/20 07/14/20 documented as of this encounter
--- OUTSIDE RECORDS SUMMARY | 2024-09-26 10:32 | XMS_ITS | Encounter Summary ---
Author Organization [facility] Address [address] [place] [address] Care Team Providers Care Supervisory Geographer Name Role Phone Yesenia Maria DO Primary Care Provider [phone] Encounter Details Date Type Department Care Team (Latest Contact Info) Description 03/22/2003 Outpatient Historical [facility] Medicine [address] [place] [phone] Gregor Bro MD NO ADDRESS ON FILE Pain in limb (Primary Dx) Social History Tobacco Use Types Packs/Day Years Used Date Smoking Tobacco: Never Assessed Sex and Gender Information Value Date Recorded Sex Assigned at Not on file Legal 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 NOODLE MAKER Gender Identity Not on file Sexual Orientation Not on file documented as of this encounter Plan of Treatment Not on file documented as of this encounter Visit Diagnoses Diagnosis Pain in limb- Primary Pain in soft tissues of limb documented in this encounter Additional Health Concerns Infection Onset Date Last Indicated Resolved Time R/O COVID-19 01/26/2020 01/26/2020 01/28/2020 1:46 AM NOODLE MAKER documented as of this encounter Care Teams Supervisory Geographer Relationship Specialty Start Date End Date Yesenia Maria DO PCP - General Family Practice 04/18/20 07/14/20 documented as of this encounter
--- OUTSIDE RECORDS SUMMARY | 2024-09-26 10:32 | XMS_ITS | Encounter Summary ---
Author Organization [facility] Address [address] [place] [address] Care Team Providers Care Sticker Hand Name Role Phone Yesenia Maria DO Primary Care Provider [phone] Encounter Details Date Type Department Care Team (Late st Contact Info) Description 02/16/2007 Inpatient Historical [facility] Jacqueline Thakkar MD [address] [phone] Social History Tobacco Use Types Packs/Day Years Used Date Smoking Tobacco: Never Assessed Sex and Gender Information Value Date Recorded Sex Assigned at Not on file Legal 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 TRANSIT MIXER DRIVER Gender Identity Not on file Sexual Orientation Not on file documented as of this encounter Plan of Treatment Not on file documented as of this encounter Visit Diagnoses Not on filedocumented in this encounter Additional Health Concerns Infection Onset Date Last Indicated Resolved Time R/O COVID-19 01/26/2020 01/26/2020 01/28/2020 1:46 AM TRANSIT MIXER DRIVER documented as of this encounter Care Teams Sticker Hand Relationship Specialty Start Date End Date Yesenia Maria DO PCP - General Family Practice 04/18/20 07/14/20 documented as of this encounter
--- OUTSIDE RECORDS SUMMARY | 2024-09-26 10:32 | XMS_ITS | Encounter Summary ---
Author Organization [facility] Address [address] [place] [address] Care Team Providers Care Manager Of Business Name Role Phone Yesenia Maria DO Primary Care Provider [phone] Encounter Details Date Type Department Care Team (Latest Contact Info) Description 04/10/2010 Outpatient Historical [facility] [address] [place] [address] Ajay Rodriguez MD NO ADDRESS ON FILE [...] on file Legal 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 GLOBAL ACCOUNT MANAGER Gender Identity Not on file Sexual Orientation Not on file documented as of this encounter Plan of Treatment Not on file documented as of this encounter Visit Diagnoses Diagnosis Thoracic or lumbosacral neuritis or radiculitis, unspecified- Primary documented in this encounter Additional Health Concerns Infection Onset Date Last Indicated Resolved Time R/O COVID-19 01/26/2020 01/26/2020 01/28/2020 1:46 AM GLOBAL ACCOUNT MANAGER documented as of this encounter Care Teams Manager Of Business Relationship Specialty Start Date End Date Yesenia Maria DO PCP - General Family Practice 04/18/20 07/14/20 documented as of this encounter
--- OUTSIDE RECORDS SUMMARY | 2024-09-26 10:32 | XMS_ITS | Encounter Summary ---
Author Organization [facility] Address [address] [place] [address] Care Team Providers Care Senior Writer Name Role Phone Yesenia Maria DO Primary Care Provider [phone] Encounter Details Date Type Department Care Team (Latest Contact Info) Description 08/28/2002 Outpatient Historical [facility] Medicine [address] [place] [phone] Yuri Richter MD NO ADDRESS ON FILE HYPERTENSION NOS (Primary Dx) Social History Tobacco Use Types Packs/Day Years Used Date Smoking Tobacco: Never Assessed Sex and Gender Information Value Date Recorded Sex Assigned at Not on file Legal 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 VEHICLE SAFETY INSPECTOR Gender Identity Not on file Sexual Orientation Not on file documented as of this encounter Plan of Treatment Not on file documented as of this encounter Visit Diagnoses Diagnosis Unspecified essential hypertension- Primary documented in this encounter Additional Health Concerns Infection Onset Date Last Indicated Resolved Time R/O COVID-19 01/26/2020 01/26/2020 01/28/2020 1:46 AM VEHICLE SAFETY INSPECTOR documented as of this encounter Care Teams Senior Writer Relationship Specialty Start Date End Date Yesenia Maria DO PCP - General Family Practice 04/18/20 07/14/20 documented as of this encounter
--- OUTSIDE RECORDS SUMMARY | 2024-09-26 10:32 | XMS_ITS | Encounter Summary ---
Author Organization [facility] Address [address] [place] [address] Care Team Providers Care Spotter Driver Name Role Phone Yesenia Maria DO Primary Care Provider [phone] Encounter Details Date Type Department Care Team (Late st Contact Info) Description 04/07/2004 Outpatient Historical [facility] Medicine [address] [address] Panda Coates MD [address] [place] [address] CELLULITIS OF HAND (Primary Dx) Social History Tobacco Use Types Packs/Day Years Used Date Smoking Tobacco: Never Assessed Sex and Gender Information Value Date Recorded Sex Assigned at Not on file Legal 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 EPIC DIRECTOR Gender Identity Not on file Sexual Orientation Not on file documented as of this encounter Plan of Treatment Not on file documented as of this encounter Visit Diagnoses Diagnosis Cellulitis and abscess of hand, except fingers and thumb- Primary documented in this encounter Additional Health Concerns Infection Onset Date Last Indicated Resolved Time R/O COVID-19 01/26/2020 01/26/2020 01/28/2020 1:46 AM EPIC DIRECTOR documented as of this encounter Care Teams Spotter Driver Relationship Specialty Start Date End Date Yesenia Maria DO PCP - General Family Practice 04/18/20 07/14/20 documented as of this encounter
--- OUTSIDE RECORDS SUMMARY | 2024-09-26 10:32 | XMS_ITS | Encounter Summary ---
Author Organization [facility] Address [address] [place] [address] Care Team Providers Care Steersman Name Role Phone Yesenia Maria DO Primary Care Provider [phone] Encounter Details Date Type Department Care Team (Late st Contact Info) Description 01/05/2005 Outpatient Historical [address] [place] [phone] [address] St[address] [place] [address] SPRAIN ELBOW/FOREARM NOS (Primary Dx) Social History Tobacco Use Types Packs/Day Years Used Date Smoking Tobacco: Never Assessed Sex and Gender Information Value Date Recorded Sex Assigned at Not on file Legal 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 CORRECTIONAL CLASSIFICATION COUNSELOR Gender Identity Not on file Sexual Orientation Not on file documented as of this encounter Plan of Treatment Not on file documented as of this encounter Visit Diagnoses Diagnosis Sprain and strain of unspecified site of elbow and forearm- Primary documented in this encounter Additional Health Concerns Infection Onset Date Last Indicated Resolved Time R/O COVID-19 01/26/2020 01/26/2020 01/28/2020 1:46 AM CORRECTIONAL CLASSIFICATION COUNSELOR documented as of this encounter Care Teams Steersman Relationship Specialty Start Date End Date Yesenia Maria DO PCP - General Family Practice 04/18/20 07/14/20 documented as of this encounter
--- OUTSIDE RECORDS SUMMARY | 2024-09-26 10:32 | XMS_ITS | Encounter Summary ---
Author Organization [facility] Address [address] [place] [address] Care Team Providers Care Lining Feller Blindstitch Name Role Phone Yesenia Maria DO Primary Care Provider [phone] Encounter Details Date Type Department Care Team (Latest Contact Info) Description 11/08/2006 Outpatient Historical [facility] Orthopedics[address] [place] [address] Ajay Bustamante, DO [address] [place] [address] Other Joint Derangement, not Elsewhere Classified, Ankle and Foot (Primary Dx) Social History Tobacco Use Types Packs/Day Years Used Date Smoking Tobacco: Never Assessed Sex and Gender Information Value Date Recorded Sex Assigned at Not on file Legal 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 HOOP RIVETING MACHINE OPERATOR HELPER Gender Identity Not on file Sexual Orientation Not on file documented as of this encounter Plan of Treatment Not on file documented as of this encounter Visit Diagnoses Diagnosis Other joint derangement, not elsewhere classified, ankle and foot- Primary documented in this encounter Additional Health Concerns Infection Onset Date Last Indicated Resolved Time R/O COVID-19 01/26/2020 01/26/2020 01/28/2020 1:46 AM HOOP RIVETING MACHINE OPERATOR HELPER documented as of this encounter Care Teams Lining Feller Blindstitch Relationship Specialty Start Date End Date Yesenia Maria DO PCP - General Family Practice 04/18/20 07/14/20 documented as of this encounter
--- OUTSIDE RECORDS SUMMARY | 2024-09-26 10:32 | XMS_ITS | Encounter Summary ---
Author Organization [facility] Address [address] [place] [address] Care Team Providers Care Priming Machine Operator Name Role Phone Yesenia Maria DO Primary Care Provider [phone] Encounter Details Date Type Department Care Team (Latest Contact Info) Description 11/29/2006 Outpatient Historical [facility] Orthopedics[address] [place] [address] Ajay Bustamante, DO [address] [place] [address] Thoracic or Lumbosacral Neuritis or Radiculitis, Unspecified (Primary Dx); Sciatic Nerve Lesion Social History Tobacco Use Types Packs/Day Years Used Date Smoking Tobacco: Never Assessed Sex and Gender Information Value Date Recorded Sex Assigned at Not on file Legal 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 TAGMAN Gender Identity Not on file Sexual Orientation Not on file documented as of this encounter Plan of Treatment Not on file documented as of this encounter Visit Diagnoses Diagnosis Thoracic or lumbosacral neuritis or radiculitis, unspecified- Primary Sciatic nerve lesion Lesion of sciatic nerve documented in this encounter Additional Health Concerns Infection Onset Date Last Indicated Resolved Time R/O COVID-19 01/26/2020 01/26/2020 01/28/2020 1:46 AM TAGMAN documented as of this encounter Care Teams Priming Machine Operator Relationship Specialty Start Date End Date Yesenia Maria DO PCP - General Family Practice 04/18/20 07/14/20 documented as of this encounter
--- OUTSIDE RECORDS SUMMARY | 2024-09-26 10:32 | XMS_ITS | Encounter Summary ---
Author Organization [facility] Address [address] [place] [address] Care Team Providers Care Typesetter Apprentice Name Role Phone Yesenia Maria DO Primary Care Provider [phone] Encounter Details Date Type Department Care Team (Latest Contact Info) Description 07/19/2006 Outpatient Historical [facility] Ear, Nose and Throat- [address] [place] [phone] Steve Eugene MD NO ADDRESS ON FILE Chronic Rhinitis (Primary Dx); Unspecified Sinusitis (Chronic) Social History Tobacco Use Types Packs/Day Years Used Date Smoking Tobacco: Never Assessed Sex and Gender Information Value Date Recorded Sex Assigned at Not on file Legal 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 MACHINE PLATE STACKER Gender Identity Not on file Sexual Orientation Not on file documented as of this encounter Plan of Treatment Not on file documented as of this encounter Visit Diagnoses Diagnosis Chronic rhinitis- Primary Unspecified sinusitis (chronic) documented in this encounter Additional Health Concerns Infection Onset Date Last Indicated Resolved Time R/O COVID-19 01/26/2020 01/26/2020 01/28/2020 1:46 AM MACHINE PLATE STACKER documented as of this encounter Care Teams Typesetter Apprentice Relationship Specialty Start Date End Date Yesenia Maria DO PCP - General Family Practice 04/18/20 07/14/20 documented as of this encounter
--- OUTSIDE RECORDS SUMMARY | 2024-09-26 10:32 | XMS_ITS | Encounter Summary ---
Author Organization [facility] [facility] Address [address] [place] [address] Care Team Providers Care Gutter Installer Name Role Phone Yesenia Maria DO Primary Care Provider [phone] Encounter Details Date Type Department Care Team (Latest Contact Info) Description 03/19/2006 Outpatient Historical [facility] [address] [place] [address] [place] [phone] Steve Eugene MD NO ADDRESS ON FILE Chronic Maxillary Sinusitis (Primary Dx) Social History Tobacco Use Types Packs/Day Years Used Date Smoking Tobacco: Never Assessed Sex and Gender Information Value Date Recorded Sex Assigned at Not on file Legal 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 LIVERY CAR DRIVER Gender Identity Not on file Sexual Orientation Not on file documented as of this encounter Plan of Treatment Not on file documented as of this encounter Visit Diagnoses Diagnosis Chronic maxillary sinusitis- Primary documented in this encounter Additional Health Concerns Infection Onset Date Last Indicated Resolved Time R/O COVID-19 01/26/2020 01/26/2020 01/28/2020 1:46 AM LIVERY CAR DRIVER documented as of this encounter Care Teams Gutter Installer Relationship Specialty Start Date End Date Yesenia Maria DO PCP - General Family Practice 04/18/20 07/14/20 documented as of this encounter
--- OUTSIDE RECORDS SUMMARY | 2024-09-26 10:32 | XMS_ITS | Encounter Summary ---
Author Organization [facility] Address [address] [place] [address] Care Team Providers Care Kindergarten Teacher Name Role Phone Yesenia Maria DO Primary Care Provider [phone] Encounter Details Date Type Department Care Team (Late st Contact Info) Description 07/09/2004 Outpatient Historical [facility] 06 Non-Staff, Physician NO ADDRESS ON FILE Social History Tobacco Use Types Packs/Day Years Used Date Smoking Tobacco: Never Assessed Sex and Gender Information Value Date Recorded Sex Assigned at Not on file Legal 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 CLIENT SERVICE PROFESSIONAL Gender Identity Not on file Sexual Orientation Not on file documented as of this encounter Plan of Treatment Not on file documented as of this encounter Procedures Procedure Name Priority Date/Time Associated Diagnosis Comments PSA MEDICARE SCREEN Routine 07/09/2004 6 :30 AM CDT GLUCOSE LEVEL Routine 07/09/2004 6:30 AM CDT LIPID PANEL Routine 07/09/2004 6:30 AM CDT documented in this encounter Results * PSA MEDICARE SCREEN (07/09/2004 6:30 AM CDT) PSA 0.4 0.0 - 4.0 ng/mL INTERFACE SYSTEM Comment:Results for patients receiving treatment must be evaluated individually by the physician. 07/09/2004 6:30 AM CDT Physician Non-Staff CHEMISTRY ORDERABLES COM Fin al Result Performing Organization Address [facility] Phone Number INTERFACE SYSTEM Refer to clinic/hospital department * GLUCOSE LEVEL (07/09/2004 6:30 AM CDT) GLUCOSE 92 70 - 110 mg/dL INTERFACE SYSTEM 07/09/2004 6:30 AM CDT Physician Non-Staff CHEMISTRY ORDERABLES Final R esult Performing Organization Address [facility] Phone Number INTERFACE SYSTEM Refer to clinic/hospital department * (ABNORMAL) LIPID PANEL (07/09/2004 6:30 AM CDT) CHOLESTEROL 181 75 - 200 mg/dL INTERFACE SYSTEM TRIGLYCERIDE 275(H) 0 - 179 mg/dL INTERFACE SYSTEM CALCULATED TOTAL CHOLESTEROL TO HDL RATIO 5.48(H) 3.43 - 4.97 INTERFACE SYSTEM HDL 33(L) 40 - 60 mg/dL INTERFACE SYSTEM LDL CALCULATED 93 0 - 130 mg/dL INTERFACE SYSTEM 07/09/2004 6:30 AM CDT Physician Non-Staff CHEMISTRY ORDERABLES Final R esult Performing Organization Address [facility] Phone Number INTERFACE SYSTEM Refer to clinic/hospital department documented in this encounter Visit Diagnoses Not on filedocumented in this encounter Additional Health Concerns Infection Onset Date Last Indicated Resolved Time R/O COVID-19 01/26/2020 01/26/2020 01/28/2020 1:46 AM CLIENT SERVICE PROFESSIONAL documented as of this encounter Care Teams Kindergarten Teacher Relationship Specialty Start Date End Date Yesenia Maria DO PCP - General Family Practice 04/18/20 07/14/20 documented as of this encounter
--- OUTSIDE RECORDS SUMMARY | 2024-09-26 10:32 | XMS_ITS | Encounter Summary ---
Author Organization [facility] Address [address] [facility] Attn: Epic Prelude ADT [place]MA TH[place]A [address] Care Team Providers Care Welding Rod Coater Name Role Phone Yesenia Maria DO Primary Care Provider [phone] Encounter Details Date Type Department Care Team (Late st Contact Info) Description 02/18/2006 Outpatient Historical Steve Eugene MD NO ADDRESS ON FILE Social History Tobacco Use Types Packs/Day Years Used Date Smoking Tobacco: Never Assessed Sex and Gender Information Value Date Recorded Sex Assigned at Not on file Legal 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 MELT SUPERVISOR Gender Identity Not on file Sexual Orientation Not on file documented as of this encounter Plan of Treatment Not on file documented as of this encounter Procedures Procedure Name Priority Date/Time Associated Diagnosis Comments RAST FOOD PANEL, ADULT Routine 02/18/2006 1:25 PM MELT SUPERVISOR ALLERGY PANEL ([facility]) Routine 02/18/2006 1:25 PM MELT SUPERVISOR documented in this encounter Results * RAST FOOD PANEL, ADULT (02/18/2006 1:25 PM MELT SUPERVISOR) ALLERGY FOOD PNL See Sep Report INTERFACE SYSTEM 02/18/2006 1:25 PM MELT SUPERVISOR us Steve Eugene MD CHEMISTRY ORDERABLES Final Re sult INTERFACE SYSTEM Refer to clinic/hospital department * RAST INHALANT PANEL (02/18/2006 1:25 PM MELT SUPERVISOR) ALLERGY INHALANT PNL & TTL IGE See Sep Report INTERFACE SYSTEM 02/18/2006 1:25 PM MELT SUPERVISOR us Steve Eugene MD CHEMISTRY ORDERABLES Final Re sult INTERFACE SYSTEM Refer to clinic/hospital department documented in this encounter Visit Diagnoses Not on filedocumented in this encounter Additional Health Concerns Infection Onset Date Last Indicated Resolved Time R/O COVID-19 01/26/2020 01/26/2020 01/28/2020 1:46 AM MELT SUPERVISOR documented as of this encounter Care Teams Welding Rod Coater Relationship Specialty Start Date End Date Yesenia Maria DO PCP - General Family Practice 04/18/20 07/14/20 documented as of this encounter
--- OUTSIDE RECORDS SUMMARY | 2024-09-26 10:32 | XMS_ITS | Encounter Summary ---
Author Organization [facility] Address [address] [place] [address] Care Team Providers Care Coagulant Dipper Name Role Phone Yesenia Maria DO Primary Care Provider [phone] Encounter Details Date Type Department Care Team (Latest Contact Info) Description 07/02/2004 Outpatient Historical [facility] Internal Medicine and Pediatrics-[address] [place]inas [address] [place] [address] Adalberto Cruz MD [address] [place] [address] PERIPH VASCULAR DIS NOS (Primary Dx) Social History Tobacco Use Types Packs/Day Years Used Date Smoking Tobacco: Never Assessed Sex and Gender Information Value Date Recorded Sex Assigned at Not on file Legal 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 CONTAINER FINISHING INSPECTOR Gender Identity Not on file Sexual Orientation Not on file documented as of this encounter Plan of Treatment Not on file documented as of this encounter Visit Diagnoses Diagnosis Peripheral vascular disease, unspecified- Primary documented in this encounter Additional Health Concerns Infection Onset Date Last Indicated Resolved Time R/O COVID-19 01/26/2020 01/26/2020 01/28/2020 1:46 AM CONTAINER FINISHING INSPECTOR documented as of this encounter Care Teams Coagulant Dipper Relationship Specialty Start Date End Date Yesenia Maria DO PCP - General Family Practice 04/18/20 07/14/20 documented as of this encounter
--- OUTSIDE RECORDS SUMMARY | 2024-09-26 10:32 | XMS_ITS | Encounter Summary ---
Author Organization [facility] Address [address] [place] [address] Care Team Providers Care Tape Keller Operator Name Role Phone Yesenia Maria DO Primary Care Provider [phone] Encounter Details Date Type Department Care Team (Latest Contact Info) Description 10/07/2004 Outpatient Historical [facility] Medicine [address] [place] [phone] Yuri Richter MD NO ADDRESS ON FILE CONJUNCTIVITIS NOS (Primary Dx) Social History Tobacco Use Types Packs/Day Years Used Date Smoking Tobacco: Never Assessed Sex and Gender Information Value Date Recorded Sex Assigned at Not on file Legal 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 GENERATOR MECHANIC Gender Identity Not on file Sexual Orientation Not on file documented as of this encounter Plan of Treatment Not on file documented as of this encounter Visit Diagnoses Diagnosis Conjunctivitis unspecified- Primary Conjunctivitis, unspecified documented in this encounter Additional Health Concerns Infection Onset Date Last Indicated Resolved Time R/O COVID-19 01/26/2020 01/26/2020 01/28/2020 1:46 AM GENERATOR MECHANIC documented as of this encounter Care Teams Tape Keller Operator Relationship Specialty Start Date End Date Yesenia Maria DO PCP - General Family Practice 04/18/20 07/14/20 documented as of this encounter
--- OUTSIDE RECORDS SUMMARY | 2024-09-26 10:32 | XMS_ITS | Encounter Summary ---
Author Organization [facility] Address [address] [place] [address] Care Team Providers Care Engineering Psychologist Name Role Phone Yesenia Maria DO Primary Care Provider [phone] Encounter Details Date Type Department Care Team (Latest Contact Info) Description 10/16/2002 Outpatient Historical [facility] Medicine [address] [place] [phone] Yuri Richter MD NO ADDRESS ON FILE Pure hypercholesterolem (Primary Dx); HYPERTENSION NOS Social History Tobacco Use Types Packs/Day Years Used Date Smoking Tobacco: Never Assessed Sex and Gender Information Value Date Recorded Sex Assigned at Not on file Legal 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 CHIEF OF STAFF DOCTOR Gender Identity Not on file Sexual Orientation Not on file documented as of this encounter Plan of Treatment Not on file documented as of this encounter Visit Diagnoses Diagnosis Pure hypercholesterolem- Primary Pure hypercholesterolemia Unspecified essential hypertension documented in this encounter Additional Health Concerns Infection Onset Date Last Indicated Resolved Time R/O COVID-19 01/26/2020 01/26/2020 01/28/2020 1:46 AM CHIEF OF STAFF DOCTOR documented as of this encounter Care Teams Engineering Psychologist Relationship Specialty Start Date End Date Yesenia Maria DO PCP - General Family Practice 04/18/20 07/14/20 documented as of this encounter
--- OUTSIDE RECORDS SUMMARY | 2024-09-26 10:32 | XMS_ITS | Encounter Summary ---
Author Organization [facility] Address [address] [place] [address] Care Team Providers Care Corporate Representative Name Role Phone Yesenia Maria DO Primary Care Provider [phone] Encounter Details Date Type Department Care Team (Late st Contact Info) Description 03/19/2005 Outpatient Historical [facility] Medicine [address] [address] Panda Coates MD [address] [place] [phone] BACKACHE NOS (Primary Dx); CRAMP IN LIMB Social History Tobacco Use Types Packs/Day Years Used Date Smoking Tobacco: Never Assessed Sex and Gender Information Value Date Recorded Sex Assigned at Not on file Legal 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 RN RADIATION Gender Identity Not on file Sexual Orientation Not on file documented as of this encounter Plan of Treatment Not on file documented as of this encounter Visit Diagnoses Diagnosis Backache, unspecified- Primary Cramp of limb documented in this encounter Additional Health Concerns Infection Onset Date Last Indicated Resolved Time R/O COVID-19 01/26/2020 01/26/2020 01/28/2020 1:46 AM RN RADIATION documented as of this encounter Care Teams Corporate Representative Relationship Specialty Start Date End Date Yesenia Maria DO PCP - General Family Practice 04/18/20 07/14/20 documented as of this encounter
--- OUTSIDE RECORDS SUMMARY | 2024-09-26 10:32 | XMS_ITS | Encounter Summary ---
Author Organization [facility] Address [address] [place] [address] Care Team Providers Care Ceo & Board Director Name Role Phone MariaYesenia dawson Primary Care Provider [phone] Encounter Details Date Type Department Care Team (Late st Contact Info) Description 12/19/2009 Ancillary Orders [facility] [address] [place] [phone] Ajay Bustamante DO [address] [place] [address] Hip pain Social History Tobacco Use Types Packs/Day Years Used Date Smoking Tobacco: Every Day Cigarettes Last attempted to quit: 12/14/2007 Comments:may smoke occassion ally Alcohol Use Standard Drinks/Week Comments No 0 (1 standard drink = 0.6 oz pur e alcohol) Sex and Gender Information Value Date Recorded Sex Assigned at Not on file Legal 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 DIRECTOR ECONOMIC Gender Identity Not on file Sexual Orientation Not on file documented as of this encounter Plan of Treatment Not on file documented as of this encounter Results * XR HIP 1 VW RIGHT (12/19/2009 8:19 AM CDT) Anatomical Region Laterality Modality Lower Extremity Right Computed Radiogr aphy 12/19/2009 8:10 AM CDT Impressions 12/19/2009 2:53 PM CDT Impression: 1. Status post gadolinium arthrography of the right hip. Please see right hip MR arthrogram result of 12/19/2009. tjb - uploaded from [employer]- Narrative 12/19/2009 2:53 PM CDT AP fluoroscopic spot film image of the right hip was obtained for gadolinium arthrography. Intra-articular contrast is present. No acute osseous abnormality is identified. Procedure Note Vicky Cooper MD - 12/19/2009 AP fluoroscopic spot film image of the right hip was obtained for gadolinium arthrography. Intra-articular contrast is present. No acute osseous abnormality is identified. IMPRESSION Impression: 1. Status post gadolinium arthrography of the right hip. Please see right hip MR arthrogram result of 12/19/2009. tjb - uploaded from [employer]- Ajay Bustamante DO DIAGNOSTIC IMAGING ORDERABLES Final Result documented in this encounter Visit Diagnoses Diagnosis Hip pain Pain in joint, pelvic region and thigh Hip pain Pain in joint, pelvic region and thigh documented in this encounter Additional Health Concerns Infection Onset Date Last Indicated Resolved Time R/O COVID-19 01/26/2020 01/26/2020 01/28/2020 1:46 AM DIRECTOR ECONOMIC documented as of this encounter Care Teams Ceo & Board Director Relationship Specialty Start Date End Date Yesenia Maria DO PCP - General Family Practice 04/18/20 07/14/20 documented as of this encounter
--- OUTSIDE RECORDS SUMMARY | 2024-09-26 10:32 | XMS_ITS | Encounter Summary ---
Author Organization [facility] Address [address] [place] [address] Care Team Providers Care Tool Programmer Name Role Phone Yesenia Maria DO Primary Care Provider [phone] Encounter Details Date Type Department Care Team (Late st Contact Info) Description 12/02/2004 Outpatient Historical [facility] Social History Tobacco Use Types Packs/Day Years Used Date Smoking Tobacco: Never Assessed Sex and Gender Information Value Date Recorded Sex Assigned at Not on file Legal 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 WASTEWATER PLANT CIVIL ENGINEER Gender Identity Not on file Sexual Orientation Not on file documented as of this encounter Plan of Treatment Not on file documented as of this encounter Visit Diagnoses Not on filedocumented in this encounter Additional Health Concerns Infection Onset Date Last Indicated Resolved Time R/O COVID-19 01/26/2020 01/26/2020 01/28/2020 1:46 AM WASTEWATER PLANT CIVIL ENGINEER documented as of this encounter Care Teams Tool Programmer Relationship Specialty Start Date End Date Yesenia Maria DO PCP - General Family Practice 04/18/20 07/14/20 documented as of this encounter
--- OUTSIDE RECORDS SUMMARY | 2024-09-26 10:32 | XMS_ITS | Encounter Summary ---
Author Organization [facility] Address [address] [place] [address] Care Team Providers Care Rustic Fence Builder Name Role Phone Yesenia Maria DO Primary Care Provider [phone] Encounter Details Date Type Department Care Team (Latest Contact Info) Description 11/01/2006 Outpatient Historical [facility] Medicine [address] [place] [phone] Yuri Richter MD NO ADDRESS ON FILE Unspecified Backache (Primary Dx) Social History Tobacco Use Types Packs/Day Years Used Date Smoking Tobacco: Never Assessed Sex and Gender Information Value Date Recorded Sex Assigned at Not on file Legal 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 ON AIR ANNOUNCER Gender Identity Not on file Sexual Orientation Not on file documented as of this encounter Plan of Treatment Not on file documented as of this encounter Visit Diagnoses Diagnosis Backache, unspecified- Primary documented in this encounter Additional Health Concerns Infection Onset Date Last Indicated Resolved Time R/O COVID-19 01/26/2020 01/26/2020 01/28/2020 1:46 AM ON AIR ANNOUNCER documented as of this encounter Care Teams Rustic Fence Builder Relationship Specialty Start Date End Date Yesenia Maria DO PCP - General Family Practice 04/18/20 07/14/20 documented as of this encounter
--- OUTSIDE RECORDS SUMMARY | 2024-09-26 10:32 | XMS_ITS | Encounter Summary ---
Author Organization [facility] Address [address] [place] [address] Care Team Providers Care Management Professionals Name Role Phone Yesenia Maria DO Primary Care Provider [phone] Encounter Details Date Type Department Care Team (Latest Contact Info) Description 05/16/2003 Outpatient Historical [facility] Medicine [address] [place] [phone] Yuri Richter MD NO ADDRESS ON FILE FX ANKLE NOS-CLOSED (Primary Dx) Social History Tobacco Use Types Packs/Day Years Used Date Smoking Tobacco: Never Assessed Sex and Gender Information Value Date Recorded Sex Assigned at Not on file Legal 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 SHIPPING RECEIVING MANAGER Gender Identity Not on file Sexual Orientation Not on file documented as of this encounter Plan of Treatment Not on file documented as of this encounter Visit Diagnoses Diagnosis Unspecified closed fracture of ankle- Primary documented in this encounter Additional Health Concerns Infection Onset Date Last Indicated Resolved Time R/O COVID-19 01/26/2020 01/26/2020 01/28/2020 1:46 AM SHIPPING RECEIVING MANAGER documented as of this encounter Care Teams Management Professionals Relationship Specialty Start Date End Date Yesenia Maria DO PCP - General Family Practice 04/18/20 07/14/20 documented as of this encounter
--- OUTSIDE RECORDS SUMMARY | 2024-09-26 10:32 | XMS_ITS | Encounter Summary ---
Author Organization [facility] Address [address] [place] [address] Care Team Providers Care Imaging Specialist Name Role Phone Yesenia Maria DO Primary Care Provider [phone] Encounter Details Date Type Department Care Team (Latest Contact Info) Description 09/04/2004 Outpatient Historical [facility] Internal Medicine and Pediatrics-[address] [place] [address] [place] [phone] Adalberto Cruz MD [address] [place] [address] PERIPH VASCULAR DIS NOS (Primary Dx); HYPERLIPIDEMIA NEC/NOS; HYPERTENSION NOS Social History Tobacco Use Types Packs/Day Years Used Date Smoking Tobacco: Never Assessed Sex and Gender Information Value Date Recorded Sex Assigned at Not on file Legal 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 STRETCHING PRESS OPERATOR Gender Identity Not on file Sexual Orientation Not on file documented as of this encounter Plan of Treatment Not on file documented as of this encounter Visit Diagnoses Diagnosis Peripheral vascular disease, unspecified- Primary Other and unspecified hyperlipidemia Unspecified essential hypertension documented in this encounter Additional Health Concerns Infection Onset Date Last Indicated Resolved Time R/O COVID-19 01/26/2020 01/26/2020 01/28/2020 1:46 AM STRETCHING PRESS OPERATOR documented as of this encounter Care Teams Imaging Specialist Relationship Specialty Start Date End Date Yesenia Maria DO PCP - General Family Practice 04/18/20 07/14/20 documented as of this encounter
--- OUTSIDE RECORDS SUMMARY | 2024-09-26 10:32 | XMS_ITS | Encounter Summary ---
Author Organization [facility] Address [address] [place] [address] Care Team Providers Care Centrifugal Machine Tender Name Role Phone Yesenia Maria DO Primary Care Provider Encounter Details Date Type Department Care Team (Latest Contact Info) Description 11/14/2003 Outpatient Historical [facility] Medicine [address] [place] [phone] Yuri Richter MD NO ADDRESS ON FILE ACUTE SINUSITIS NOS (Primary Dx) Social History Tobacco Use Types Packs/Day Years Used Date Smoking Tobacco: Never Assessed Sex and Gender Information Value Date Recorded Sex Assigned at Not on file Legal 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 FULFILLMENT ASSOCIATE Gender Identity Not on file Sexual Orientation Not on file documented as of this encounter Plan of Treatment Not on file documented as of this encounter Visit Diagnoses Diagnosis Acute sinusitis, unspecified- Primary documented in this encounter Additional Health Concerns Infection Onset Date Last Indicated Resolved Time R/O COVID-19 01/26/2020 01/26/2020 01/28/2020 1:46 AM FULFILLMENT ASSOCIATE documented as of this encounter Care Teams Centrifugal Machine Tender Relationship Specialty Start Date End Date Yesenia Maria DO PCP - General Family Practice 04/18/20 07/14/20 documented as of this encounter
--- OUTSIDE RECORDS SUMMARY | 2024-09-26 10:32 | XMS_ITS | Encounter Summary ---
Author Organization [facility] Address [address] [place] [address] Care Team Providers Care Gateman Name Role Phone Yesenia Maria DO Primary Care Provider [phone] Encounter Details Date Type Department Care Team (Latest Contact Info) Description 04/27/2005 Outpatient Historical [address] [place]inas [address] [place] [address] [place] [phone] Melly Jameson DO NO ADDRESS ON FILE STREP SORE THROAT (Primary Dx) Social History Tobacco Use Types Packs/Day Years Used Date Smoking Tobacco: Never Assessed Sex and Gender Information Value Date Recorded Sex Assigned at Not on file Legal 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 COMMUNICATIONS TOWER CLIMBER Gender Identity Not on file Sexual Orientation Not on file documented as of this encounter Plan of Treatment Not on file documented as of this encounter Visit Diagnoses Diagnosis Streptococcal sore throat- Primary documented in this encounter Additional Health Concerns Infection Onset Date Last Indicated Resolved Time R/O COVID-19 01/26/2020 01/26/2020 01/28/2020 1:46 AM COMMUNICATIONS TOWER CLIMBER documented as of this encounter Care Teams Gateman Relationship Specialty Start Date End Date Yesenia Maria DO PCP - General Family Practice 04/18/20 07/14/20 documented as of this encounter
--- OUTSIDE RECORDS SUMMARY | 2024-09-26 10:32 | XMS_ITS | Encounter Summary ---
Author Organization [facility] Address [address] [place] [address] Care Team Providers Care Industrial Photographer Name Role Phone Yesenia Maria DO Primary Care Provider [phone] Encounter Details Date Type Department Care Team (Latest Contact Info) Description 05/03/2006 Outpatient [facility] Ear, Nose and Throat- [address] [place] [address] [place] [phone] Steve Eugene MD NO ADDRESS ON FILE Follow-Up Examination, Following Unspecified Surgery (Primary Dx) Social History Tobacco Use Types Packs/Day Years Used Date Smoking Tobacco: Never Assessed Sex and Gender Information Value Date Recorded Sex Assigned at Not on file Legal 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 AIR CONDITIONING UNIT ASSEMBLER Gender Identity Not on file Sexual Orientation Not on file documented as of this encounter Plan of Treatment Not on file documented as of this encounter Visit Diagnoses Diagnosis Follow-up examination, following unspecified surgery- Primary documented in this encounter Additional Health Concerns Infection Onset Date Last Indicated Resolved Time R/O COVID-19 01/26/2020 01/26/2020 01/28/2020 1:46 AM AIR CONDITIONING UNIT ASSEMBLER documented as of this encounter Care Teams Industrial Photographer Relationship Specialty Start Date End Date Yesenia Maria DO PCP - General Family Practice 04/18/20 07/14/20 documented as of this encounter
--- OUTSIDE RECORDS SUMMARY | 2024-09-26 10:32 | XMS_ITS | Encounter Summary ---
Author Organization [facility] Address [address] [place] [address] Care Team Providers Care Subassembler Name Role Phone Yesenia Maria DO Primary Care Provider [phone] Encounter Details Date Type Department Care Team (Latest Contact Info) Description 10/27/2004 Outpatient Historical [facility] Medicine [address] [place] [phone] Yuri Richter MD NO ADDRESS ON FILE HYPERTENSION NOS (Primary Dx); Contusion face/scalp/nck Social History Tobacco Use Types Packs/Day Years Used Date Smoking Tobacco: Never Assessed Sex and Gender Information Value Date Recorded Sex Assigned at Not on file Legal 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 WASHER ENGINEER HELPER Gender Identity Not on file Sexual Orientation Not on file documented as of this encounter Plan of Treatment Not on file documented as of this encounter Visit Diagnoses Diagnosis Unspecified essential hypertension- Primary Contusion face/scalp/nck Contusion of face, scalp, and neck except eye(s) documented in this encounter Additional Health Concerns Infection Onset Date Last Indicated Resolved Time R/O COVID-19 01/26/2020 01/26/2020 01/28/2020 1:46 AM WASHER ENGINEER HELPER documented as of this encounter Care Teams Subassembler Relationship Specialty Start Date End Date Yesenia Maria DO PCP - General Family Practice 04/18/20 07/14/20 documented as of this encounter
--- OUTSIDE RECORDS SUMMARY | 2024-09-26 10:32 | XMS_ITS | Encounter Summary ---
Author Organization [facility] Address [address] [place] [address] Care Team Providers Care Patient Accounts Specialist Name Role Phone Yesenia Maria DO Primary Care Provider [phone] Encounter Details Date Type Department Care Team (Latest Contact Info) Description 04/16/2004 Outpatient Historical [facility] Medicine [address] [place] [phone] Yuri Richter MD NO ADDRESS ON FILE SWELLING OF LIMB (Primary Dx) Social History Tobacco Use Types Packs/Day Years Used Date Smoking Tobacco: Never Assessed Sex and Gender Information Value Date Recorded Sex Assigned at Not on file Legal 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 GUEST RELATIONS COORDINATOR Gender Identity Not on file Sexual Orientation Not on file documented as of this encounter Plan of Treatment Not on file documented as of this encounter Visit Diagnoses Diagnosis Swelling of limb- Primary documented in this encounter Additional Health Concerns Infection Onset Date Last Indicated Resolved Time R/O COVID-19 01/26/2020 01/26/2020 01/28/2020 1:46 AM GUEST RELATIONS COORDINATOR documented as of this encounter Care Teams Patient Accounts Specialist Relationship Specialty Start Date End Date Yesenia Maria DO PCP - General Family Practice 04/18/20 07/14/20 documented as of this encounter
--- OUTSIDE RECORDS SUMMARY | 2024-09-26 10:32 | XMS_ITS | Encounter Summary ---
Author Organization [facility] Address [address] [place] [address] Care Team Providers Care Administrative Office Clerk Name Role Phone Yesenia Maria DO Primary Care Provider [phone] Encounter Details Date Type Department Care Team (Latest Contact Info) Description 03/28/2003 Outpatient Historical [facility] Medicine [address] [place] [phone] Yuri Richter MD NO ADDRESS ON FILE OLD FB IN SOFT TISSUE (Primary Dx) Social History Tobacco Use Types Packs/Day Years Used Date Smoking Tobacco: Never Assessed Sex and Gender Information Value Date Recorded Sex Assigned at Not on file Legal 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 TREE FELLER Gender Identity Not on file Sexual Orientation Not on file documented as of this encounter Plan of Treatment Not on file documented as of this encounter Visit Diagnoses Diagnosis Residual foreign body in soft tissue- Primary documented in this encounter Additional Health Concerns Infection Onset Date Last Indicated Resolved Time R/O COVID-19 01/26/2020 01/26/2020 01/28/2020 1:46 AM TREE FELLER documented as of this encounter Care Teams Administrative Office Clerk Relationship Specialty Start Date End Date Yesenia Maria DO PCP - General Family Practice 04/18/20 07/14/20 documented as of this encounter
--- OUTSIDE RECORDS SUMMARY | 2024-09-26 10:32 | XMS_ITS | Encounter Summary ---
Author Organization [facility] Address [address] [place] [address] Care Team Providers Care Magnetic Doctor Name Role Phone Yesenia Maria DO Primary Care Provider [phone] Encounter Details Date Type Department Care Team (Latest Contact Info) Description 06/17/2005 Outpatient Historical [facility] Medicine [address] [place] [phone] Yuri Richter MD NO ADDRESS ON FILE Pure Hypercholesterolem (Primary Dx); Unspecified Essential Hypertension Social History Tobacco Use Types Packs/Day Years Used Date Smoking Tobacco: Never Assessed Sex and Gender Information Value Date Recorded Sex Assigned at Not on file Legal 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 CANE CUTTER Gender Identity Not on file Sexual Orientation Not on file documented as of this encounter Plan of Treatment Not on file documented as of this encounter Visit Diagnoses Diagnosis Pure hypercholesterolem- Primary Pure hypercholesterolemia Unspecified essential hypertension documented in this encounter Additional Health Concerns Infection Onset Date Last Indicated Resolved Time R/O COVID-19 01/26/2020 01/26/2020 01/28/2020 1:46 AM CANE CUTTER documented as of this encounter Care Teams Magnetic Doctor Relationship Specialty Start Date End Date Yesenia Maria DO PCP - General Family Practice 04/18/20 07/14/20 documented as of this encounter
--- OUTSIDE RECORDS SUMMARY | 2024-09-26 10:32 | XMS_ITS | Encounter Summary ---
Author Organization [facility] Address [address] [place] [address] Care Team Providers Care Assembly Inspector Helper Name Role Phone Yesenia Maria DO Primary Care Provider Encounter Details Date Type Department Care Team (Latest Contact Info) Description 03/06/2010 Outpatient Historical [facility] [address] [place] [address] Ajay Rodriguez MD NO ADDRESS ON FILE Disorders of sacrum (Primary Dx) Social History Tobacco Use Types [...] on file Legal 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 KITCHEN ASSISTANT Gender Identity Not on file Sexual Orientation Not on file documented as of this encounter Plan of Treatment Not on file documented as of this encounter Visit Diagnoses Diagnosis Disorders of sacrum- Primary documented in this encounter Additional Health Concerns Infection Onset Date Last Indicated Resolved Time R/O COVID-19 01/26/2020 01/26/2020 01/28/2020 1:46 AM KITCHEN ASSISTANT documented as of this encounter Care Teams Assembly Inspector Helper Relationship Specialty Start Date End Date Yesenia Maria DO PCP - General Family Practice 04/18/20 07/14/20 documented as of this encounter
--- OUTSIDE RECORDS SUMMARY | 2024-09-26 10:32 | XMS_ITS | Encounter Summary ---
Author Organization [facility] Address [address] [place] [address] Care Team Providers Care Road Worker Name Role Phone Yesenia Maria DO Primary Care Provider [phone] Encounter Details Date Type Department Care Team (Latest Contact Info) Description 08/02/2006 Outpatient Historical [facility] Pulmon[facility] [address] [place] [address] Heladio Perez MD NO ADDRESS ON FILE Other Dyspnea and Respiratory Abnormality (Primary Dx) Social History Tobacco Use Types Packs/Day Years Used Date Smoking Tobacco: Never Assessed Sex and Gender Information Value Date Recorded Sex Assigned at Not on file Legal 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 DATA ANALYST ETL DEVELOPER Gender Identity Not on file Sexual Orientation Not on file documented as of this encounter Plan of Treatment Not on file documented as of this encounter Visit Diagnoses Diagnosis Other dyspnea and respiratory abnormality- Primary documented in this encounter Additional Health Concerns Infection Onset Date Last Indicated Resolved Time R/O COVID-19 01/26/2020 01/26/2020 01/28/2020 1:46 AM DATA ANALYST ETL DEVELOPER documented as of this encounter Care Teams Road Worker Relationship Specialty Start Date End Date Yesenia Maria DO PCP - General Family Practice 04/18/20 07/14/20 documented as of this encounter
--- OUTSIDE RECORDS SUMMARY | 2024-09-26 10:32 | XMS_ITS | Encounter Summary ---
Author Organization [facility] Address [address] [place] [address] Care Team Providers Care Urology Physician Assistant Name Role Phone Yesenia Maria DO Primary Care Provider [phone] Encounter Details Date Type Department Care Team (Latest Contact Info) Description 09/04/2004 Outpatient Historical [facility] Medicine [address] [place] [address] Yuri Richter MD NO ADDRESS ON FILE ASCVD (Primary Dx); Pure hypercholesterolem; HYPERTENSION NOS; CEREBRAL THROMB CEREBRAL INFARCT (CMS/HCC) Social History Tobacco Use Types Packs/Day Years Used Date Smoking Tobacco: Never Assessed Sex and Gender Information Value Date Recorded Sex Assigned at Not on file Legal 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 MANAGER AGRICULTURAL Gender Identity Not on file Sexual Orientation Not on file documented as of this encounter Plan of Treatment Not on file documented as of this encounter Visit Diagnoses Diagnosis ASCVD- Primary Unspecified cardiovascular disease Pure hypercholesterolem Pure hypercholesterolemia Unspecified essential hypertension Cerebral thrombosis with cerebral infarction (CMS/HCC) Cerebral thrombosis with cerebral infarction documented in this encounter Additional Health Concerns Infection Onset Date Last Indicated Resolved Time R/O COVID-19 01/26/2020 01/26/2020 01/28/2020 1:46 AM MANAGER AGRICULTURAL documented as of this encounter Care Teams Urology Physician Assistant Relationship Specialty Start Date End Date Yesenia Maria DO PCP - General Family Practice 04/18/20 07/14/20 documented as of this encounter
--- OUTSIDE RECORDS SUMMARY | 2024-09-26 10:32 | XMS_ITS | Encounter Summary ---
Author Organization [facility] Address [address] [place] [address] Care Team Providers Care Hotel Superintendent Name Role Phone Yesenia Maria DO Primary Care Provider [phone] Encounter Details Date Type Department Care Team (Latest Contact Info) Description 11/20/2002 Outpatient Historical [facility] Medicine [address] [place] [address] Yuri Richter MD NO ADDRESS ON FILE DIABETES UNCOMPL ADULT-TYPE II (CMS/HCC) (Primary Dx); Pure hypercholesterolem; HYPERTENSION NOS Social History Tobacco Use Types Packs/Day Years Used Date Smoking Tobacco: Never Assessed Sex and Gender Information Value Date Recorded Sex Assigned at Not on file Legal 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 WATER QUALITY TESTER Gender Identity Not on file Sexual Orientation [...] R/O COVID-19 01/26/2020 01/26/2020 01/28/2020 1:46 AM WATER QUALITY TESTER documented as of this encounter Care Teams Hotel Superintendent Relationship Specialty Start Date End Date Yesenia Maria DO PCP - General Family Practice 04/18/20 07/14/20 documented as of this encounter
--- OUTSIDE RECORDS SUMMARY | 2024-09-26 10:32 | XMS_ITS | Encounter Summary ---
Author Organization [facility] Address [address] [place] [address] Care Team Providers Care Stump Blower Name Role Phone Yesenia Maria DO Primary Care Provider [phone] Encounter Details Date Type Department Care Team (Latest Contact Info) Description 05/25/2006 Outpatient Historical [facility] Medicine [address] [place] [phone] Yuri Richter MD NO ADDRESS ON FILE Intestinal Infection due to Other Organism, NEC (Primary Dx); Unspecified Backache Social History Tobacco Use Types Packs/Day Years Used Date Smoking Tobacco: Never Assessed Sex and Gender Information Value Date Recorded Sex Assigned at Not on file Legal 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 COMMERCIAL SHEET METAL FOREMAN Gender Identity Not on file Sexual Orientation Not on file documented as of this encounter Plan of Treatment Not on file documented as of this encounter Visit Diagnoses Diagnosis Intestinal infection due to other organism, not elsewhere classified- Primary Backache, unspecified documented in this encounter Additional Health Concerns Infection Onset Date Last Indicated Resolved Time R/O COVID-19 01/26/2020 01/26/2020 01/28/2020 1:46 AM COMMERCIAL SHEET METAL FOREMAN documented as of this encounter Care Teams Stump Blower Relationship Specialty Start Date End Date Yesenia Maria DO PCP - General Family Practice 04/18/20 07/14/20 documented as of this encounter
--- OUTSIDE RECORDS SUMMARY | 2024-09-26 10:32 | XMS_ITS | Encounter Summary ---
Author Organization [facility] Address [address] [place] [address] Care Team Providers Care Virtual Assistant Name Role Phone Yesenia Maria DO Primary Care Provider [phone] Encounter Details Date Type Department Care Team (Late st Contact Info) Description 04/03/2004 Outpatient Historical [facility] Medicine [address] [address] Panda Coates MD [address] [place] [address] CELLULITIS OF HAND (Primary Dx) Social History Tobacco Use Types Packs/Day Years Used Date Smoking Tobacco: Never Assessed Sex and Gender Information Value Date Recorded Sex Assigned at Not on file Legal 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 CUSTOMER SOLUTIONS ARCHITECT Gender Identity Not on file Sexual Orientation Not on file documented as of this encounter Plan of Treatment Not on file documented as of this encounter Visit Diagnoses Diagnosis Cellulitis and abscess of hand, except fingers and thumb- Primary documented in this encounter Additional Health Concerns Infection Onset Date Last Indicated Resolved Time R/O COVID-19 01/26/2020 01/26/2020 01/28/2020 1:46 AM CUSTOMER SOLUTIONS ARCHITECT documented as of this encounter Care Teams Virtual Assistant Relationship Specialty Start Date End Date Yesenia Maria DO PCP - General Family Practice 04/18/20 07/14/20 documented as of this encounter
--- OUTSIDE RECORDS SUMMARY | 2024-09-26 10:32 | XMS_ITS | Encounter Summary ---
Author Organization [facility] Address [address] [place] [address] Care Team Providers Care Surveillance Sensor Operator Name Role Phone Yesenia Maria DO Primary Care Provider [phone] Encounter Details Date Type Department Care Team (Latest Contact Info) Description 11/20/2004 Outpatient Historical [facility] Internal Medicine and Pediatrics-[address] [place] [phone] Heladio Perez MD NO ADDRESS ON FILE RESPIRATORY ABNORM NEC (Primary Dx) Social History Tobacco Use Types Packs/Day Years Used Date Smoking Tobacco: Never Assessed Sex and Gender Information Value Date Recorded Sex Assigned at Not on file Legal 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 MANAGER STORE Gender Identity Not on file Sexual Orientation Not on file documented as of this encounter Plan of Treatment Not on file documented as of this encounter Visit Diagnoses Diagnosis Other dyspnea and respiratory abnormality- Primary documented in this encounter Additional Health Concerns Infection Onset Date Last Indicated Resolved Time R/O COVID-19 01/26/2020 01/26/2020 01/28/2020 1:46 AM MANAGER STORE documented as of this encounter Care Teams Surveillance Sensor Operator Relationship Specialty Start Date End Date Yesenia Maria DO PCP - General Family Practice 04/18/20 07/14/20 documented as of this encounter
--- OUTSIDE RECORDS SUMMARY | 2024-09-26 10:32 | XMS_ITS | Encounter Summary ---
Author Organization [facility] Address [address] [place] [address] Care Team Providers Care Csm Consultant Name Role Phone Yesenia Maria DO Primary Care Provider [phone] Encounter Details Date Type Department Care Team (Late st Contact Info) Description 04/10/2004 Outpatient Historical [facility] Medicine [address] [address] Panda Coates MD [address] [place] [address] CELLULITIS OF HAND (Primary Dx) Social History Tobacco Use Types Packs/Day Years Used Date Smoking Tobacco: Never Assessed Sex and Gender Information Value Date Recorded Sex Assigned at Not on file Legal 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 HEALTHCARE FINANCIAL ANALYST Gender Identity Not on file Sexual Orientation Not on file documented as of this encounter Plan of Treatment Not on file documented as of this encounter Visit Diagnoses Diagnosis Cellulitis and abscess of hand, except fingers and thumb- Primary documented in this encounter Additional Health Concerns Infection Onset Date Last Indicated Resolved Time R/O COVID-19 01/26/2020 01/26/2020 01/28/2020 1:46 AM HEALTHCARE FINANCIAL ANALYST documented as of this encounter Care Teams Csm Consultant Relationship Specialty Start Date End Date Yesenia Maria DO PCP - General Family Practice 04/18/20 07/14/20 documented as of this encounter
--- OUTSIDE RECORDS SUMMARY | 2024-09-26 10:32 | XMS_ITS | Encounter Summary ---
Author Organization [facility] Address [address] [place] [address] Care Team Providers Care Transit Driver Name Role Phone Yesenia Maria DO Primary Care Provider [phone] Encounter Details Date Type Department Care Team (Latest Contact Info) Description 07/05/2006 Outpatient Historical [facility] Medicine [address] [place] [phone] Yuri Richter MD NO ADDRESS ON FILE Pure Hypercholesterolem (Primary Dx); Unspecified Essential Hypertension; Unspecified Chest Pain; Other Abnormal Glucose Social History Tobacco Use Types Packs/Day Years Used Date Smoking Tobacco: Never Assessed Sex and Gender Information Value Date Recorded Sex Assigned at Not on file Legal 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 PATIENT OFFICE REP Gender Identity Not on file Sexual Orientation Not on file documented as of this encounter Plan of Treatment Not on file documented as of this encounter Visit Diagnoses Diagnosis Pure hypercholesterolem- Primary Pure hypercholesterolemia Unspecified essential hypertension Chest pain, unspecified Other abnormal glucose documented in this encounter Additional Health Concerns Infection Onset Date Last Indicated Resolved Time R/O COVID-19 01/26/2020 01/26/2020 01/28/2020 1:46 AM PATIENT OFFICE REP documented as of this encounter Care Teams Transit Driver Relationship Specialty Start Date End Date Yesenia Maria DO PCP - General Family Practice 04/18/20 07/14/20 documented as of this encounter
--- OUTSIDE RECORDS SUMMARY | 2024-09-26 10:32 | XMS_ITS | Encounter Summary ---
Author Organization [facility] Address [address] [place] [address] Care Team Providers Care Mailing Jogger Name Role Phone Yesenia Maria DO Primary Care Provider [phone] Encounter Details Date Type Department Care Team (Late st Contact Info) Description 01/19/2011 Ancillary Orders [facility] Pain Management[address] [place] [phone] Adrienne Will PA [address] [place] [phone] Thoracic or lumbosacral neuritis or radiculitis, unspecified Social History Tobacco Use Types Packs/Day Years Used Date Smoking Tobacco: Former Cigarettes Q uit: 12/14/2007 Smokeless Tobacco: Never Comments:may smoke occassion ally 1/4 pack Alcohol Use Standard Drinks/Week Comments No 0 (1 standard drink = 0.6 oz pur e alcohol) Sex and Gender Information Value Date Recorded Sex Assigned at Not on file Legal 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 CAN CLOSING MACHINE TENDER Gender Identity Not on file Sexual Orientation Not on file documented as of this encounter Plan of Treatment Not on file documented as of this encounter Results * XR FLUORO NEEDLE GUIDANCE (01/19/2011 9:38 AM CAN CLOSING MACHINE TENDER) Anatomical Region Laterality Modality Computed Radiogr aphy Narrative 01/19/2011 9:39 AM CAN CLOSING MACHINE TENDER Order information only. Exam was auto-finalized. Procedure Note Carlene, Ashley, RT - 01/19/2011 Order information only. Exam was auto-finalized. Adrienne [facility] ORDERABLES Fi nal Result documented in this encounter Visit Diagnoses Diagnosis Thoracic or lumbosacral neuritis or radiculitis, unspecified Thoracic or lumbosacral neuritis or radiculitis, unspecified documented in this encounter Additional Health Concerns Infection Onset Date Last Indicated Resolved Time R/O COVID-19 01/26/2020 01/26/2020 01/28/2020 1:46 AM CAN CLOSING MACHINE TENDER documented as of this encounter Care Teams Mailing Jogger Relationship Specialty Start Date End Date Yesenia Maria DO PCP - General Family Practice 04/18/20 07/14/20 documented as of this encounter
--- OUTSIDE RECORDS SUMMARY | 2024-09-26 10:32 | XMS_ITS | Encounter Summary ---
Author Organization [facility] Address [address] [place] [address] Care Team Providers Care Head Animal Trainer Name Role Phone Yesenia Maria DO Primary Care Provider Encounter Details Date Type Department Care Team (Latest Contact Info) Description 08/02/2006 Outpatient Historical [facility] Services-[facility] [place] [address] [place] [phone] Heladio Perez MD NO ADDRESS ON FILE Other Dyspnea and Respiratory Abnormality (Primary Dx) Social History Tobacco Use Types Packs/Day Years Used Date Smoking Tobacco: Never Assessed Sex and Gender Information Value Date Recorded Sex Assigned at Not on file Legal 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 MAIL EXAMINER Gender Identity Not on file Sexual Orientation Not on file documented as of this encounter Plan of Treatment Not on file documented as of this encounter Visit Diagnoses Diagnosis Other dyspnea and respiratory abnormality- Primary documented in this encounter Additional Health Concerns Infection Onset Date Last Indicated Resolved Time R/O COVID-19 01/26/2020 01/26/2020 01/28/2020 1:46 AM MAIL EXAMINER documented as of this encounter Care Teams Head Animal Trainer Relationship Specialty Start Date End Date Yesenia Maria DO PCP - General Family Practice 04/18/20 07/14/20 documented as of this encounter
--- OUTSIDE RECORDS SUMMARY | 2024-09-26 10:32 | XMS_ITS | Encounter Summary ---
Author Organization [facility] Address [address] [place] [address] Care Team Providers Care Loss Prevention/Safety District Manager Name Role Phone Yesenia Maria DO Primary Care Provider [phone] Encounter Details Date Type Department Care Team (Latest Contact Info) Description 03/19/2006 Outpatient [facility] [address] [place] [phone] Steve Eugene MD NO ADDRESS ON FILE Chronic Maxillary Sinusitis (Primary Dx); Chronic Ethmoidal Sinusitis; Deviated Nasal Septum; Hypertrph Nasal Turbinat Social History Tobacco Use Types Packs/Day Years Used Date Smoking Tobacco: Never Assessed Sex and Gender Information Value Date Recorded Sex Assigned at Not on file Legal 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 CLOTH WINDER Gender Identity Not on file Sexual Orientation Not on file documented as of this encounter Plan of Treatment Not on file documented as of this encounter Visit Diagnoses Diagnosis Chronic maxillary sinusitis- Primary Chronic ethmoidal sinusitis Deviated nasal septum Hypertrph nasal turbinat Hypertrophy of nasal turbinates documented in this encounter Additional Health Concerns Infection Onset Date Last Indicated Resolved Time R/O COVID-19 01/26/2020 01/26/2020 01/28/2020 1:46 AM CLOTH WINDER documented as of this encounter Care Teams Loss Prevention/Safety District Manager Relationship Specialty Start Date End Date Yesenia Maria DO PCP - General Family Practice 04/18/20 07/14/20 documented as of this encounter
--- OUTSIDE RECORDS SUMMARY | 2024-09-26 10:32 | XMS_ITS | Encounter Summary ---
Author Organization [facility] Address [address] [place] [address] Care Team Providers Care Installation Helper Name Role Phone Yesenia Maria DO Primary Care Provider [phone] Encounter Details Date Type Department Care Team (Latest Contact Info) Description 07/22/2006 Outpatient Historical [facility] Optometry[address] [place] [address] Loyd Bacon, OD [address] [place] [address] Unspecified Astigmatism (Primary Dx); Myopia Social History Tobacco Use Types Packs/Day Years Used Date Smoking Tobacco: Never Assessed Sex and Gender Information Value Date Recorded Sex Assigned at Not on file Legal 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 ELECTRICAL EQUIPMENT ASSEMBLER Gender Identity Not on file Sexual Orientation Not on file documented as of this encounter Plan of Treatment Not on file documented as of this encounter Visit Diagnoses Diagnosis Astigmatism, unspecified- Primary Myopia documented in this encounter Additional Health Concerns Infection Onset Date Last Indicated Resolved Time R/O COVID-19 01/26/2020 01/26/2020 01/28/2020 1:46 AM ELECTRICAL EQUIPMENT ASSEMBLER documented as of this encounter Care Teams Installation Helper Relationship Specialty Start Date End Date Yesenia Maria DO PCP - General Family Practice 04/18/20 07/14/20 documented as of this encounter
--- OUTSIDE RECORDS SUMMARY | 2024-09-26 10:32 | XMS_ITS | Encounter Summary ---
Author Organization [facility] Address [address] [place] [address] Care Team Providers Care Rehabilitation Services Manager Name Role Phone Yesenia Maria DO Primary Care Provider [phone] Encounter Details Date Type Department Care Team (Late st Contact Info) Description 08/05/2006 Outpatient Historical [facility] [place] [address] [place] [phone] Social History Tobacco Use Types Packs/Day Years Used Date Smoking Tobacco: Never Assessed Sex and Gender Information Value Date Recorded Sex Assigned at Not on file Legal 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 SHODER FILLER Gender Identity Not on file Sexual Orientation Not on file documented as of this encounter Plan of Treatment Not on file documented as of this encounter Visit Diagnoses Not on filedocumented in this encounter Additional Health Concerns Infection Onset Date Last Indicated Resolved Time R/O COVID-19 01/26/2020 01/26/2020 01/28/2020 1:46 AM SHODER FILLER documented as of this encounter Care Teams Rehabilitation Services Manager Relationship Specialty Start Date End Date Yesenia Maria DO PCP - General Family Practice 04/18/20 07/14/20 documented as of this encounter
--- OUTSIDE RECORDS SUMMARY | 2024-09-26 10:32 | XMS_ITS | Encounter Summary ---
Author Organization [facility] Address [address] [place] [address] Care Team Providers Care Tool Room Supervisor Name Role Phone Yesenia Maria DO Primary Care Provider Encounter Details Date Type Department Care Team (Latest Contact Info) Description 04/21/2004 Outpatient Historical [facility] Medicine [address] [place] [phone] Yuri Richter MD NO ADDRESS ON FILE HYPERTENSION NOS (Primary Dx) Social History Tobacco Use Types Packs/Day Years Used Date Smoking Tobacco: Never Assessed Sex and Gender Information Value Date Recorded Sex Assigned at Not on file Legal 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 AUTO DESIGN CHECKER Gender Identity Not on file Sexual Orientation Not on file documented as of this encounter Plan of Treatment Not on file documented as of this encounter Visit Diagnoses Diagnosis Unspecified essential hypertension- Primary documented in this encounter Additional Health Concerns Infection Onset Date Last Indicated Resolved Time R/O COVID-19 01/26/2020 01/26/2020 01/28/2020 1:46 AM AUTO DESIGN CHECKER documented as of this encounter Care Teams Tool Room Supervisor Relationship Specialty Start Date End Date Yesenia Maria DO PCP - General Family Practice 04/18/20 07/14/20 documented as of this encounter
--- OUTSIDE RECORDS SUMMARY | 2024-09-26 10:32 | XMS_ITS | Encounter Summary ---
Author Organization [facility] Address [address] [place] [address] Care Team Providers Care Bead Builder Name Role Phone Yesenia Maria DO Primary Care Provider [phone] Encounter Details Date Type Department Care Team (Latest Contact Info) Description 12/17/2009 Outpatient Historical [facility] [address] [place] [address] Miguel Hayden MD [address] [phone] Lumbago (Primary Dx); Thoracic or lumbosacral neuritis or radiculitis, unspecified; Generalized pain; Other unspecified back disorder; Muscle weakness (generalized); Abnormality of gait; Other physical therapy Social History Tobacco Use Types Packs/Day Years Used Date Smoking Tobacco: Every Day Cigarettes Last attempted to quit: 12/14/2007 Comments:may smoke occassion ally Alcohol Use Standard Drinks/Week Comments No 0 (1 standard drink = 0.6 oz pur e alcohol) Sex and Gender Information Value Date Recorded Sex Assigned at Not on file Legal 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 PRODUCTION DIRECTOR Gender Identity Not on file Sexual Orientation Not on file documented as of this encounter Plan of Treatment Not on file documented as of this encounter Visit Diagnoses Diagnosis Lumbago- Primary Thoracic or lumbosacral neuritis or radiculitis, unspecified Generalized pain Other unspecified back disorder Muscle weakness (generalized) Abnormality of gait Other physical therapy documented in this encounter Additional Health Concerns Infection Onset Date Last Indicated Resolved Time R/O COVID-19 01/26/2020 01/26/2020 01/28/2020 1:46 AM PRODUCTION DIRECTOR documented as of this encounter Care Teams Bead Builder Relationship Specialty Start Date End Date Yesenia Maria DO PCP - General Family Practice 04/18/20 07/14/20 documented as of this encounter
--- OUTSIDE RECORDS SUMMARY | 2024-09-26 10:32 | XMS_ITS | Encounter Summary ---
Author Organization [facility] Address [address] [place] [address] Care Team Providers Care Plate Corrector Name Role Phone Yesenia Maria DO Primary Care Provider [phone] Encounter Details Date Type Department Care Team (Latest Contact Info) Description 12/19/2002 Outpatient Historical [facility] Medicine [address] [place] [phone] Yuri Richter MD NO ADDRESS ON FILE DIABETES UNCOMPL ADULT-TYPE II (CMS/HCC) (Primary Dx); Pure hypercholesterolem; HYPERTENSION NOS Social History Tobacco Use Types Packs/Day Years Used Date Smoking Tobacco: Never Assessed Sex and Gender Information Value Date Recorded Sex Assigned at Not on file Legal 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 COUNTER STACKER Gender Identity Not on file Sexual [...] R/O COVID-19 01/26/2020 01/26/2020 01/28/2020 1:46 AM COUNTER STACKER documented as of this encounter Care Teams Plate Corrector Relationship Specialty Start Date End Date Yesenia Maria DO PCP - General Family Practice 04/18/20 07/14/20 documented as of this encounter
--- OUTSIDE RECORDS SUMMARY | 2024-09-26 10:32 | XMS_ITS | Encounter Summary ---
Author Organization [facility] Address [address] [place] [address] Care Team Providers Care Maintenance Journeyman Name Role Phone Yesenia Maria DO Primary Care Provider [phone] Encounter Details Date Type Department Care Team (Latest Contact Info) Description 05/23/2003 Outpatient Historical [facility] Medicine [address] [place] [phone] Yuri Richter MD NO ADDRESS ON FILE FX ANKLE NOS-CLOSED (Primary Dx); HYPERTENSION NOS Social History Tobacco Use Types Packs/Day Years Used Date Smoking Tobacco: Never Assessed Sex and Gender Information Value Date Recorded Sex Assigned at Not on file Legal 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 INVESTMENT BANKING ASSOCIATE Gender Identity Not on file Sexual Orientation Not on file documented as of this encounter Plan of Treatment Not on file documented as of this encounter Visit Diagnoses Diagnosis Unspecified closed fracture of ankle- Primary Unspecified essential hypertension documented in this encounter Additional Health Concerns Infection Onset Date Last Indicated Resolved Time R/O COVID-19 01/26/2020 01/26/2020 01/28/2020 1:46 AM INVESTMENT BANKING ASSOCIATE documented as of this encounter Care Teams Maintenance Journeyman Relationship Specialty Start Date End Date Yesenia Maria DO PCP - General Family Practice 04/18/20 07/14/20 documented as of this encounter
--- OUTSIDE RECORDS SUMMARY | 2024-09-26 10:32 | XMS_ITS | Encounter Summary ---
Author Organization [facility] Address [address] [place] [address] Care Team Providers Care Powerhouse Electrician Apprentice Name Role Phone Yesenia Maria DO Primary Care Provider [phone] Encounter Details Date Type Department Care Team (Latest Contact Info) Description 12/12/2004 Outpatient Historical [facility] Medicine [address] [place] [address] Gregor Bro MD NO ADDRESS ON FILE CHRONIC AIRWAY OBSTRUCTION NEC ([facility]) (Primary Dx); Vaccine for influenza; VACCINE FOR STREP PNEUMONIAE Social History Tobacco Use Types Packs/Day Years Used Date Smoking Tobacco: Never Assessed Sex and Gender Information Value Date Recorded Sex Assigned at Not on file Legal 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 OFFICE AIDE Gender Identity Not on file Sexual Orientation Not on file documented as of this encounter Plan of Treatment Not on file documented as of this encounter Visit Diagnoses Diagnosis Chronic airway obstruction, not elsewhere classified (CMS/HCC)- Primary Chronic airway obstruction, not elsewhere classified Vaccine for influenza Need for prophylactic vaccination and inoculation against influenza Need for prophylactic vaccination against Streptococcus pneumoniae (pneumococcus) Need for prophylactic vaccination against streptococcus pneumoniae (pneumococcus) documented in this encounter Additional Health Concerns Infection Onset Date Last Indicated Resolved Time R/O COVID-19 01/26/2020 01/26/2020 01/28/2020 1:46 AM OFFICE AIDE documented as of this encounter Care Teams Powerhouse Electrician Apprentice Relationship Specialty Start Date End Date Yesenia Maria DO PCP - General Family Practice 04/18/20 07/14/20 documented as of this encounter
--- OUTSIDE RECORDS SUMMARY | 2024-09-26 10:32 | XMS_ITS | Encounter Summary ---
Author Organization [facility] Address [address] [place] [address] Care Team Providers Care Paper Box Maker Name Role Phone Yesenia Maria DO Primary Care Provider [phone] Encounter Details Date Type Department Care Team (Latest Contact Info) Description 06/27/2004 Outpatient Historical [facility] Medicine [address] [place] [phone] Yuri Richter MD NO ADDRESS ON FILE BACKACHE NOS (Primary Dx) Social History Tobacco Use Types Packs/Day Years Used Date Smoking Tobacco: Never Assessed Sex and Gender Information Value Date Recorded Sex Assigned at Not on file Legal 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 GASTROENTEROLOGY PHYSICIAN Gender Identity Not on file Sexual Orientation Not on file documented as of this encounter Plan of Treatment Not on file documented as of this encounter Visit Diagnoses Diagnosis Backache, unspecified- Primary documented in this encounter Additional Health Concerns Infection Onset Date Last Indicated Resolved Time R/O COVID-19 01/26/2020 01/26/2020 01/28/2020 1:46 AM GASTROENTEROLOGY PHYSICIAN documented as of this encounter Care Teams Paper Box Maker Relationship Specialty Start Date End Date Yesenia Maria DO PCP - General Family Practice 04/18/20 07/14/20 documented as of this encounter
--- OUTSIDE RECORDS SUMMARY | 2024-09-26 10:32 | XMS_ITS | Encounter Summary ---
Author Organization [facility] Address [address] [place] [address] Care Team Providers Care Coat Tailor Name Role Phone Yesenia Maria DO Primary Care Provider [phone] Encounter Details Date Type Department Care Team (Latest Contact Info) Description 12/14/2003 Outpatient Historical [facility] Medicine [address] [place] [address] Yuri Richter MD NO ADDRESS ON FILE Pure hypercholesterolem (Primary Dx); HYPERTENSION NOS; ABN BLOOD CHEMISTRY NEC; SCREENING MAL NEOP-PROSTATE Social History Tobacco Use Types Packs/Day Years Used Date Smoking Tobacco: Never Assessed Sex and Gender Information Value Date Recorded Sex Assigned at Not on file 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 Gender Identity Not on file Sexual Orientation Not on file documented as of this encounter Plan of Treatment Not on file documented as of this encounter Visit Diagnoses Diagnosis Pure hypercholesterolem- Primary Pure hypercholesterolemia Unspecified essential hypertension Other abnormal blood chemistry Special screening for malignant neoplasm of prostate documented in this encounter Additional Health Concerns Infection Onset Date Last Indicated Resolved Time R/O COVID-19 01/26/2020 01/26/2020 01/28/2020 1:46 AM SOCIAL SCIENCES PROFESSOR documented as of this encounter Care Teams Coat Tailor Relationship Specialty Start Date End Date Yesenia Maria DO PCP - General Family Practice 04/18/20 07/14/20 documented as of this encounter
--- OUTSIDE RECORDS SUMMARY | 2024-09-26 10:32 | XMS_ITS | Encounter Summary ---
Author Organization [facility] Address [address] [place] [address] Care Team Providers Care Ophthalmology Technician Name Role Phone Yesenia Maria DO Primary Care Provider [phone] Encounter Details Date Type Department Care Team (Latest Contact Info) Description 08/05/2006 Outpatient [facility] Cardio Pulmonary Rehab [address] [place] [address] Heladio Perez MD NO ADDRESS ON FILE Other Dyspnea and Respiratory Abnormality (Primary Dx) Social History Tobacco Use Types Packs/Day Years Used Date Smoking Tobacco: Never Assessed Sex and Gender Information Value Date Recorded Sex Assigned at Not on file 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 Gender Identity Not on file Sexual Orientation Not on file documented as of this encounter Plan of Treatment Not on file documented as of this encounter Visit Diagnoses Diagnosis Other dyspnea and respiratory abnormality- Primary documented in this encounter Additional Health Concerns Infection Onset Date Last Indicated Resolved Time R/O COVID-19 01/26/2020 01/26/2020 01/28/2020 1:46 AM APRICOT WASHER documented as of this encounter Care Teams Ophthalmology Technician Relationship Specialty Start Date End Date Yesenia Maria DO PCP - General Family Practice 04/18/20 07/14/20 documented as of this encounter
--- OUTSIDE RECORDS SUMMARY | 2024-09-26 10:32 | XMS_ITS | Encounter Summary ---
Author Organization [facility] Address [address] [place] [address] Care Team Providers Care Harbor Engineer Name Role Phone Yesenia Maria DO Primary Care Provider [phone] Encounter Details Date Type Department Care Team (Latest Contact Info) Description 06/04/2003 Outpatient Historical [facility] Medicine [address] [place] [phone] Yuri Richter MD NO ADDRESS ON FILE FX ANKLE NOS-CLOSED (Primary Dx) Social History Tobacco Use Types Packs/Day Years Used Date Smoking Tobacco: Never Assessed Sex and Gender Information Value Date Recorded Sex Assigned at Not on file Legal 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
--- OUTSIDE RECORDS SUMMARY | 2024-09-26 10:32 | XMS_ITS | Encounter Summary ---
Author Organization [facility] Address [address] [place] [address] Care Team Providers Care Motion Picture Scene Builder Name Role Phone Yesenia Maria DO Primary Care Provider [phone] Encounter Details Date Type Department Care Team (Latest Contact Info) Description 12/02/2004 Outpatient Historical Cardio Pulmonary Rehab [address] [place] [address] Heladio Perez MD NO ADDRESS ON FILE RESPIRATORY ABNORM NEC (Primary Dx) Social History Tobacco Use Types Packs/Day Years Used Date Smoking Tobacco: Never Assessed Sex and Gender Information Value Date Recorded Sex Assigned at Not on file 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 Gender Identity Not on file Sexual Orientation Not on file documented as of this encounter Plan of Treatment Not on file documented as of this encounter Procedures Procedure Name Priority Date/Time Associated Diagnosis Comments POC BLOOD GAS, LYTES AND H+H Routine 12/02/2004 8:39 AM CDT documented in this encounter Results * POC ISTAT EG 7+ (12/02/2004 8:39 AM CDT) SPECIMEN TYPE Arterial INTERF RODRIGO SYSTEM FIO2 0 INTERFACE SYSTEM PH 7.41 7.35 - 7.45 Unit INTERFACE SYSTEM PH TEMP CORRECT 7.41 7.35 - 7.45 Unit INTERFACE SYSTEM PCO2 POC 38 35 - 45 mmHg INTERFACE SYSTEM PCO2 TEMP CORRECT 38 35 - 45 mmHg INTERFACE SYSTEM PO2 89 80 - 105 mmHg INTERFACE SYSTEM PO2 TEMP CORRECT 89 80 - 105 mmHg INTERFACE SYSTEM HCO3 (CALC) POC 24.1 22.0 - 26.0 mmol/l INTERFACE SYSTEM BASE EXCESS -1 -2 - 3 mmol/l INTERFACE SYSTEM HEMOGLOBIN POC 16.0 13.5 - 18.0 g/dL INTERFACE SYSTEM HEMATOCRIT ABG 47 38 - 51 % INTER FACE SYSTEM O2 SATURATION 97 95 - 98 % INTERF RODRIGO SYSTEM TCO2 (CALC) POC 25 23 - 27 mmol/l INTERFACE SYSTEM SODIUM 138 138 - 146 mEq/L INTERFACE SYSTEM POTASSIUM 4.1 3.5 - 4.9 mEq/L INTERFACE SYSTEM CALCIUM IONIZED 1.25 1.12 - 1.32 mmol/l INTERFACE SYSTEM 12/02/2004 8:39 AM CDT us Heladio Perez MD POINT OF CARE TESTING COM Final Result INTERFACE SYSTEM Refer to clinic/hospital department documented in this encounter Visit Diagnoses Diagnosis Other dyspnea and respiratory abnormality- Primary documented in this encounter Additional Health Concerns Infection Onset Date Last Indicated Resolved Time R/O COVID-19 01/26/2020 01/26/2020 01/28/2020 1:46 AM SAW SETTER documented as of this encounter Care Teams Motion Picture Scene Builder Relationship Specialty Start Date End Date Yesenia Maria DO PCP - General Family Practice 04/18/20 07/14/20 documented as of this encounter
--- OUTSIDE RECORDS SUMMARY | 2024-09-26 10:32 | XMS_ITS | Encounter Summary ---
Author Organization [facility] Address [address] [place] [address] Care Team Providers Care Job Coach Name Role Phone Yesenia Maria DO Primary Care Provider [phone] Encounter Details Date Type Department Care Team (Latest Contact Info) Description 12/30/2006 Outpatient Historical [facility] [place] [address] Ajay Bustamante, DO [address] [place] [address] Thoracic or Lumbosacral Neuritis or Radiculitis, Unspecified (Primary Dx) Social History Tobacco Use Types Packs/Day Years Used Date Smoking Tobacco: Never Assessed Sex and Gender Information Value Date Recorded Sex Assigned at Not on file 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 Gender Identity Not on file Sexual Orientation Not on file documented as of this encounter Plan of Treatment Not on file documented as of this encounter Visit Diagnoses Diagnosis Thoracic or lumbosacral neuritis or radiculitis, unspecified- Primary documented in this encounter Additional Health Concerns Infection Onset Date Last Indicated Resolved Time R/O COVID-19 01/26/2020 01/26/2020 01/28/2020 1:46 AM SENIOR RESTAURANT MANAGER documented as of this encounter Care Teams Job Coach Relationship Specialty Start Date End Date Yesenia Maria DO PCP - General Family Practice 04/18/20 07/14/20 documented as of this encounter
--- OUTSIDE RECORDS SUMMARY | 2024-09-26 10:33 | XMS_ITS | Clinical Summary ---
Author Organization [facility] Address [address] [place] [address] Care Team Providers Care Deli/Bakery Associate Name Role Phone Unavailable Primary Care Provider Unavailabl e Allergies Active Allergy Reactions Criticality Noted Date Comments Codeine Nausea and Vomiting Low 04/13/2008 Morphine Rash Low 06/06/2018 Medications diabetic shoes with insertsIndicatio ns:Type 2 diabetes mellitus with hyperglycemia, with long-term current use of insulin ([facility]),Type 2 diabetes mellitus with diabetic peripheral angiopathy without gangrene, with long-term current use of insulin (CMS/[facility]),Callus of foot Length of Need: 99 months. Patient has diabetes mellitus and one of the following: history of pre-ulcerative callus Patient has diabetes mellitus. Patient is being treated under comprehensive plan for diabetes and the patient needs special shoes because of diabetes. Dispense 1/ year shoe and 3/year inserts. 1 Each 05/30/19 23 Active hydrOXYzine HCL (ATARAX) 25 mg tablet TAKE 1 TABLET BY MOUTH THREE TIMES DAILY NEEDED FOR ITCHING 180 Tablet 5 09/05/19 Active Blood-Glucose Meter,Continuous (Dexcom G6 Mental Retardation Nurse)Indicat ions:Type 2 diabetes mellitus with hyperglycemia, with long-term current use of insulin (CMS/[facility]) Use to monitor blood glucose continuously throughout the day. 1 Each 12/15/19 23 Active Blood-Glucose Transmitter (Dexcom G6 Transmitter) DeviceIndication s:Type 2 diabetes mellitus with hyperglycemia, with long-term current use of insulin (CMS/[facility]) Fasten on top of the sensor to wirelessly send data to the glass wool blanket machine feeder. Must be changed every 3 months. 1 Each 3 12/15/19 23 Active Blood-Glucose Sensor (TextPower G6 Sensor) DeviceIndication s:Type 2 diabetes mellitus with hyperglycemia, with long-term current use of insulin (CMS/HCC) Discreetly worn under clothing to measure glucose levels just underneath the skin. Must change sensor every 10 days. 1 Each 12 12/15/19 23 Active cetirizine (ZyrTEC) 10 mg tabletIndication s:Allergic rhinitis, unspecified seasonality, unspecified trigger Take 1 tablet by mouth once daily 100 Tablet 3 05/24/19 24 Active sildenafiL, pulm.hypertensio n, (REVATIO) 20 mg Tablet TAKE 3-5 TABLETS BY MOUTH ONCE DAILY NEEDED 30 Tablet 3 08/06/19 24 Active cyclobenzaprine (FLEXERIL) 5 mg Tablet take 1 tablet by mouth at night 08/12/19 24 Active fluticasone propionate (FLONASE) 50 mcg/spray [place], Suspension nasal inhaler Administer 2 Sprays in each nostril daily. 16 Gram 11 10/04/19 24 Active pantoprazole (PROTONIX) 20 mg Tablet, Delayed Release (E.C.)Indication s:Gastroesophage al reflux disease without esophagitis Take 1 Tablet (20 mg) by mouth daily. 100 Tablet 3 11/01/19 24 Active metFORMIN (GLUCOPHAGE) 1,000 mg tabletIndication s:Type 2 diabetes mellitus with diabetic peripheral angiopathy without gangrene, with long-term current use of insulin (CMS/HCC) take 1 tablet by mouth twice daily with meals 200 Tablet 12/24/19 24 Active HYDROcodone-acet aminophen (NORCO) 5-325 mg tabletIndication s:Status post coronary artery bypass graft Take 1 Tablet by mouth every 4 hours as needed for Pain. Max Daily Amount: 6 Tablets 20 Tablet 02/12/20 24 Active Blood Pressure Monitor KitIndications:E ncounter for preventative adult health care examination USE TO CHECK BLOOD PRESSURE DAILY 1 Kit 02/12/20 24 Active metoprolol tartrate (LOPRESSOR) 25 mg tablet Take 1 Tablet (25 mg) by mouth 2 times daily. 60 Tablet 3 02/12/20 24 Active empagliflozin (Jardiance) 10 mg tablet Take 1 Tablet (10 mg) by mouth daily in the morning. 100 Tablet 3 02/12/20 24 Active aspirin (AIDA CHEWABLE) 81 mg Tablet, Chewable Take 1 Tablet (81 mg) by mouth daily with breakfast. 90 Tablet 5 02/12/20 24 Active insulin lispro (HumaLOG,ADMELOG ) 100 unit/mL pen syringe Inject 0-12 Units by subcutaneous injection 3 times daily with meals. 15 mL 3 02/12/20 24 Active Tresiba FlexTouch U-100 100 unit/mL (3 mL) pen syringeIndicatio ns:Type 2 diabetes mellitus with hyperglycemia, with long-term current use of insulin ([facility]),Type 2 diabetes mellitus with diabetic peripheral angiopathy without gangrene, with long-term current use of insulin ([facility]) INJECT 35 UNITS SUBCUTANEOUSLY ONCE DAILY AT BEDTIME 15 mL 2 02/12/20 24 Active Insulin [place], Disposable, (BD Ultra-Fine Mini Pen Needle) 31 gauge x 3/16 NeedleIndication s:Type 2 diabetes mellitus with hyperglycemia, with long-term current use of insulin ([facility]) USE DIRECTED WITH VICTOZA AND TRESIBA DAILY 200 Each 2 02/25/20 24 Active acetaminophen (TYLENOL) 325 mg tablet Take 2 Tablets (650 mg) by mouth every 6 hours as needed for Other (See Comment) (See admin instructions). 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 9 mL 3 06/18/19 25 Active clopidogreL (PLAVIX) 75 mg Tablet Take 1 Tablet (75 mg) by mouth daily. 90 Tablet 3 07/12/19 25 Active hydroCHLOROthiaz vahe (MICROZIDE) 12.5 mg capsuleIndicatio ns:Essential hypertension Take 1 capsule by mouth once daily 90 Capsule 08/19/19 25 Active atorvastatin (LIPITOR) 80 mg tablet Take 1 Tablet (80 mg) by mouth daily at bedtime. 30 Tablet 1 08/19/19 25 Active Active Problems Problem Noted Date Diagnosed Date S/P carotid endarterectomy 04/12/2024 Stenosis of right carotid artery 04/11/2024 Postoperative hypotension 04/11/2024 History of right-sided carotid endarterectomy Chronic heart failure with r educed ejection fraction (HFrEF, <= 40%) 04/11/2024 Generalized anxiety disorder 03/13/2024 Status post coronary artery bypass graft 024 Status post ligation of left atrial appendage Acute HFrEF (heart failure with reduced ejection fraction) 02/03/2024 Coronary artery disease of n ative artery of [place] heart with stable angina pectoris 02/02/2024 CHF (congestive heart failure) 02/02/2024 NSTEMI (non-ST elevated myocardial infarction) 1 04/03/2023 Gastroesophageal reflux disease without esophagi tis 09/27/2023 Type 2 diabetes mellitus wit h hyperglycemia, with long-term current use of insulin 06/30/2018 Intracranial atherosclerosis distal vertebral and proximal basilar artery 06/07/2018 History of CVA (cerebrovascular accident) 2018 MIAH (obstructive sleep apnea) 06/06/2018 Plica syndrome, left knee 03/03/2018 Chronic pain of left knee 03/03/2018 Primary osteoarthritis of left knee 03/03/2018 Bone cyst 03/03/2018 Overview (07/11/2020): expanding cyst on the medial facet of the patella overlying the degenerative area Nicotine dependence, cigaret domenico, uncomplicated (Tobacco Use Disorder) 02/05/2015 Class 1 obesity due to exces s calories with serious comorbidity and body mass index (BMI) of 30.0 to 30.9 in adult 10/08/2014 Essential hypertension 08/03/2011 Fatty liver 05/18/2011 Kidney cysts,right 05/18/2011 Neck pain,left 03/18/2011 Overview (07/11/2020): November 2012 cervical MRI was unremarkable Type 2 diabetes mellitus wit h diabetic peripheral angiopathy without gangrene, with long-term current use of insulin 07/05/2009 Mixed hyperlipidemia 01/04/2009 Lumbar radiculopathy 09/28/2008 Overview (07/11/2020): Acute right L4 denervation noted on 02-26-10 EMG S/P lumbar fusion 09/28/2008 Overview (07/11/2020): L5-S1 decompression/fusion L4-5 decompression/fusion June 2010 CTS (carpal tunnel syndrome) 09/20/2008 Overview (07/11/2020): Bilateral S/p left CTR 10/2010 Resolved Problems Problem Noted Date Diagnosed Date Resolved Date CKD (chronic kidney disease) stage 3, GFR 30-59 ml/min 09/12/2018 10/25/2020 Dizziness 06/06/2018 10/25/2020 Anxiety 10/27/2013 10/25/2020 Extremity pain,LUE 09/26/2012 1 Abdominal bloating 05/07/2011 2 Abdominal bloating 05/07/2011 1 Disorder of sacrum 03/26/2011 1 Encounters Date Type Department Care Team Description 09/08/2024 Orders Only [address] [place] [phone] Panda Coates MD 08/29/2024 External Device Data [facility] ABSTRACTION Provider, Abstract 08/18/[address] [place] [phone] Katerin Dallas DO ERRONEOUS ENCOUNTER--DISREGARD (Primary Dx); Essential hypertension 08/18/[address] [place] [phone] Collin Franklin PA-C Essential hypertension 08/10/[address] [place] [phone] Katerin Dallas DO Wants Appointment; Patient Communication 07/25/2024 External Device Data ST[facility] ABSTRACTION Provider, Abstract 07/25/2024 External Device Data [facility] ABSTRACTION Provider, Abstract 07/11/2024 Orders Only [address] [place] [phone] Zoya Rudolph 07/07/[address] [place] [address] [place] [address], [place] [phone] Kateirn Dallas, DO AVILA 06/30/[address] [place] [address] Ena Cordero PA-C Requesting [facility] Appointment from Last 3 Months Immunizations Immunization Administration Dates Next Due (ADACEL/BOOSTRIX)(10 YR UP) TDAP VACCINE, 0.5ML, IM 09/12/2018 (PNEUMOVAX 23)(50 YRS UP) PN EUMOCOCCAL POLYSACCHARIDE (PPV23) 0.5 ML, IM 03/28/2018,12/22/2011,12/12/2004 (PREVNAR 20)(6 WKS UP) PNEUM OCOCCAL CONJUGATE VACCINE 20-VALENT (PCV20), POLYSACCHARIDE [id number] CONJUGATE, ADJUVANT 0.5 ML (PF) IM 01/25/2024 INFLUENZA VACCINE QUADRIVALE NT 6 MOS UP PF IM 03/28/2018 Influenza Seasonal Unspecifi ed Formulation IM 2006,12/12/2004 Influenza Vaccine Split 3+ Yrs PF IM 12/19/2012 PNEUMOVAX (PPSV23) pneumococ migdalia polysaccharide 23-valent Vaccine 03/28/2018 Family History Medical History Relation Name Comments High Cholesterol Father Hypertension Father Healthy Mother Amblyopia Neg Hx Blindness Neg Hx Cataract Neg Hx Detachment/Tears Neg Hx Glaucoma Neg Hx Macular Degen Neg Hx Strabismus Neg Hx Relation Name Status Comments Father Alive Mother heart aneuysm Social History Tobacco Use Types Packs/Day Years Used Date Smoking Tobacco: Every Day Cigarettes Smokeless Tobacco: Never Tobacco Cessation:Ready to Q uit: Not Asked; Counseling Given: Not Answered Comments:Quit smoking: less than 1/2 pack per day Alcohol Use Standard Drinks/Week Comments No 0 (1 standard drink = 0.6 oz pur e alcohol) Feeling Safe Answer Date Recorded Are you in a relationship wi th someone who hurts you emotionally and/or physically? No 04/11/2024 Food Insecurity Answer Date Recorded Patient needs follow up regardin 07/07/2024 Transportation Needs Answer Date Record ed Patient needs follow up regardin 07/07/2024 Housing Stability Answer Date Recorded Social/Environmental Concerns No concerns Utility Needs Answer Date Recorded Patient needs follow up regardin 07/07/2024 Sex and Gender Information Value Date Recorded Sex Assigned at Not on file Legal Sex Male 1:33 AM [employer] Gender Identity Not on file Sexual Orientation Not on file Last Filed Vital Signs Vital Sign Reading Time Taken Comments Blood Pressure 132/74 05/24/2024 9:04 AM CDT Pulse 96 05/24/2024 9:04 AM CDT Temperature 37.1 C (98.7 F) 04/12/2024 11:00 AM [employer] Respiratory Rate 22 04/12/2024 11:0 0 AM [employer] Oxygen Saturation 100% 05/24/2024 9:04 AM CDT Inhaled Oxygen Concentration - - Weight 113.8 kg (250 lb 14.1 oz) 04/12/2024 6:00 AM [employer] Height 177.8 cm (5' 10 ) 05/24/2024 9:04 AM CDT Body Mass Index 36 04/11/2024 8:41 AM [employer] Plan of Treatment Upcoming Encounters Date Type Department Care Team (Late st Contact Info) Description 10/13/2024 1:[address] [facility] [address] [place] [phone] Katerin Dallas DO [address] [place] [address] [address] [place] [phone] Health Maintenance Due Date Last Done Comments COLORECTAL SCREENING 01/15/2008 FIT-DNA Q 3 years 01/15/2008 FIT/FOBT Q 1 year 01/15/2008 Flex Sig/CT Colonography Q 5 years 01/15/2008 ZOSTER VACCINE (1 of 2) 2013 DIABETES ANNUAL RETINAL EXAM 11/08/2019 11/07/2018, 08/17/2016, 08/17/2016, Additional history exists DIABETES MICROALBUMIN ANNUAL SCREEN 07/26/2021 07/26/2020, 05/10/2019, 03/28/2018, Additional history exists RSV VACCINE (60+ or ) (1 - Risk 60-74 years 1-dose series) 2023 COVID-19 Vaccine (3 - season) 2023 12/12/2021, 05/02/2021 DIABETES ANNUAL FOOT EXAM 04/16/20242023, 05/29/2022, 07/26/2020, Additional history exists DIABETES HBA1C Q 6 MONTHS 07/24/20242023, 09/27/2023, 04/16/2023, Additional history exists LDL CHOLESTEROL ANNUAL 09/26/2024 4, 11/28/2021, 04/19/2020, Additional history exists INFLUENZA VACCINE (#1) 2024 4, 12/11/2022, 05/29/2022, Additional history exists Colorectal Cancer Screening 01/24/2025 Postponed from 01/15/2008 (Patient Refused) DTAP/TDAP/TD VACCINES (2 - Td or Tdap) 09/12/2028 09/12/2018 Goals Goal Patient Goal Type Associated Problems Recent Progress Patient-Stated? Author Heart Failure Goal Care Plan Heart Failure Problem No Corine Haji LPN Heart Failure Goal Care Plan Heart Failure Problem No Klaudia, Zoya Heart Failure Goal Care Plan Heart Failure Problem No Klaudia, Zoya Heart Failure Goal Care Plan Heart Failure Problem No Klaudia, Zoya Heart Failure Goal Care Plan Heart Failure Problem No Klaudia, Zoya Heart Failure Goal Care Plan Heart Failure Problem No Klaudia, Zoya Heart Failure Goal Care Plan Heart Failure Problem No Arelis Coto Heart Failure Goal Care Plan Heart Failure Problem No Klaudia, Zoya Heart Failure Goal Care Plan Heart Failure Problem No Klaudia, Zoya Heart Failure Goal Care Plan Heart Failure Problem No Klaudia, Zoya Heart Failure Goal Care Plan Heart Failure Problem No Klaudia, Zoya Heart Failure Goal Care Plan Heart Failure Problem No Klaudia, Zoya Heart Failure Goal Care Plan Heart Failure Problem No Kristy Brunner LPN Heart Failure Goal Care Plan Heart Failure Problem No Mabel Barriga LPN Heart Failure Goal Care Plan Heart Failure Problem No Chayo Rosenthal LPN Heart Failure Goal Care Plan Heart Failure Problem No Chayo Rosenthal LPN Heart Failure Goal Care Plan Heart Failure Problem No Chayo Rosenthal, DONTA Heart Failure Goal Care Plan Heart Failure Problem No Chayo Rosenthal, DONTA Heart Failure Goal Care Plan Heart Failure Problem No Arelis Coto Heart Failure Goal Care Plan Heart Failure Problem No Arelis Coto Heart Failure Goal Care Plan Heart Failure Problem No Barriga, Mabel, SENIOR PRODUCT INTEGRITY ENGINEER Heart Failure Goal Care Plan Heart Failure Problem No Barriga, Mabel, SENIOR PRODUCT INTEGRITY ENGINEER Heart Failure Goal Care Plan Heart Failure Problem No Barriga, Mabel, SENIOR PRODUCT INTEGRITY ENGINEER Heart Failure Goal Care Plan Heart Failure Problem No ArianeDenise quiros, LEAD CUSTODIAN Heart Failure Goal Care Plan Heart Failure Problem No GoodmanDenise quiros D, LEAD CUSTODIAN Heart Failure Goal Care Plan Heart Failure Problem No GoodmanDenise quiros D, [facility] Heart Failure Goal Care Plan Heart Failure Problem No ArianeDenise quiros, [facility] Medical Devices Implanted Type Area Asphalt Dauber Device Identifier Shelf Expiration Date Model / Serial / Lot Atriclip Flex-V Di Exclusion 40mm Achv40 - [id number] Implanted:Qty : 1 on 02/07/2024 by Heladio Nguyen MD at [facility] Cardiovascular Device N/A: Heart A[employer]URE INC [id number] 11/13/2026 ACHV40 / / [id number] Clip Ligating [facility] [place] [id number] - Csc - [id number] Implanted:Qty : 1 on 02/07/2024 by Heladio Nguyen MD at [facility] Clip N/A: Chest TELEFLEX- WECK CLOSURE SYS [id number] 10/06/2028 [id number] / / [id number] Coach Builder Ligaclip l [facility]20 - [id number] Implanted:Qty : 1 on 02/07/2024 by Heladio Nguyen MD at [facility] Clip N/A: Chest J&J- ETHICON ENDO-SURGERY INC [id number] 11/12/2028 [facility]20 / / [id number] Coach Builder Ligaclip Sml [facility]20 - [id number] Implanted:Qty : 1 on 02/07/2024 by Heladio Nguyen MD at [facility] Clip N/A: Chest J&J- ETHICON ENDO-SURG[employer] INC [id number] 11/12/2028 MCS20 / / [id number] Coach Builder Ligaclip Sml Mcs20 - [id number] Implanted:Qty : 1 on 02/07/2024 by Heladio Nguyen MD at [facility] Clip N/A: Chest J&J- ETHICON ENDO-SURG[employer] INC [id number] 11/12/2028 MCS20 / / [id number] Clip Ligating Horizon Red 221741 - Csc - [id number] Implanted:Qty : 1 on 04/11/2024 by Chin Mclaughlin MD at [facility] Clip Right: Neck TELEFLEX INC [id number] 11/10/2028 [id number] / / [id number] Clip Ligating Horizon Med Ti 329556 - Csc - [id number] Implanted:Qty : 1 on 04/11/2024 by Chin Mclaughlin MD at [facility] Clip Right: Neck TELEFLEX- WECK CLOSURE SYS [id number] 11/12/2028 057885 / / [id number] Patch Vascu-Guard 0.8x8cm Cardio Vg-0108 - [id number] Implanted:Qty : 1 on 04/11/2024 by Chin Mclaughlin MD at [facility] Collagen Right: Carotid SYNOVIS- BIO-VASCULAR INC [id number] 11/08/2025 [id number] / / [id number] Hemostatic Surgiflo 8ml W/ Thrombin 2994 - [id number] Implanted:Qty : 1 on 04/11/2024 by Chin Mclaughlin MD at [facility] Hemostatic Right: Neck J&J- ETHICON INC [id number] 06/12/2025 2994 / / [id number] Agent Hemostat Surgicel 3x4in 1943s - [id number] Implanted:Qty : 1 on 04/11/2024 by Chin Mclaughlin MD at [facility] Hemostatic Right: Neck J&J- ETHICON INC [id number] 12/12/2028 1943S / / [id number] Log [id number] - Theo Dynesys Lumbar Fixation - 1 - Cord Dynesys 100mm [id number] Implanted:Qty : 1 on 06/16/2010 Other N/A: Spine Lumbar THEO [employer] 04/15/2013.370 1.100 / NA / [id number] Description:two in package Log [id number] - Theo Dynesys Lumbar Fixation - 1 - Screw Pedicle 6.4x50mm .450 Implanted:Qty : 1 on 06/16/2010 Screw N/A: Spine Lumbar THEO US INC 10/13/2010 6.450 / NA / [id number] Description:two screws per p ackage Screw Bio-Tenodesis 7x23mm Ar-1570b - [id number] Implanted:Qty : 1 on 02/07/2013 by Ajay Bustamante, DO Screw Left: Shoulder [employer] INC 06/13/2014 AR-1570 B / / [id number] Description:left Screw Sternalock Stiven 2.4x16mm 73-2416 - [id number] Implanted:Qty : 1 on 02/07/2024 by Heladio Nguyen MD at [facility] Screw N/A: Sternum BIOMET MCRFXTN - BENT[place] RACHEL 73-2416 / / Screw Sternalock Stiven 2.4x16mm 73-2416 - [id number] Implanted:Qty : 1 on 02/07/2024 by Heladio Nguyen MD at [facility] Screw N/A: Sternum BIOMET MCRFXTN - [place] RACHEL 73-2416 / / Screw Sternalock Stiven 2.4x16mm 73-2416 - [id number] Implanted:Qty : 1 on 02/07/2024 by Heladio Nguyen MD at [facility] Screw N/A: Sternum BIOMET MCRFXTN - [place] RACHEL 73-2416 / / Screw Sternalock Stiven 2.4x16mm 73-2416 - [id number] Implanted:Qty : 1 on 02/07/2024 by Heladio Nguyen MD at [facility] Screw N/A: Sternum BIOMET MCRFXTN - [place] RACHEL 73-2416 / / Screw Sternalock Stiven 2.4x16mm 73-2416 - [id number] Implanted:Qty : 1 on 02/07/2024 by Heladio Nguyen MD at [facility] Screw N/A: Sternum BIOMET MCRFXTN - [place] RACHEL 73-2416 / / Screw Sternalock Stiven 2.4x16mm 73-2416 - [id number] Implanted:Qty : 1 on 02/07/2024 by Heladio Nguyen MD at [facility] Screw N/A: Sternum BIOMET MCRFXTN - [place] RACHEL 73-2416 / / Screw Sternalock Stiven 2.4x18mm 73-2418 - [id number] Implanted:Qty : 1 on 02/07/2024 by Heladio Nguyen MD at [facility] Screw N/A: Sternum BIOMET MCRFXTN - [place] RACHEL 73-2418 / / Screw Sternalock Stiven 2.4x18mm 73-2418 - [id number] Implanted:Qty : 1 on 02/07/2024 by Heladio Nguyen MD at [facility] Screw N/A: Sternum BIOMET MCRFXTN - [place] RACHEL 73-2418 / / Screw Sternalock Stiven 2.4x18mm 73-2418 - [id number] Implanted:Qty : 1 on 02/07/2024 by Heladio Nguyen MD at [facility] Screw N/A: Sternum BIOMET MCRFXTN - [place] RACHEL 73-2418 / / Screw Sternalock Stiven 2.4x18mm 73-2418 - [id number] Implanted:Qty : 1 on 02/07/2024 by Heladio Nguyen MD at [facility] Screw N/A: Sternum BIOMET MCRFXTN - [place] RACHEL 73-2418 / / Screw Sternalock Stiven 2.4x18mm 73-2418 - [id number] Implanted:Qty : 1 on 02/07/2024 by Heladio Nguyen MD at [facility] Screw N/A: Sternum BIOMET MCRFXTN - [place] RACHEL 73-2418 / / Screw Sternalock Stiven 2.4x18mm 73-2418 - [id number] Implanted:Qty : 1 on 02/07/2024 by Heladio Nguyen MD at [facility] Screw N/A: Sternum BIOMET MCRFXTN - [place] RACHEL 73-2418 / / Screw Sternalock Stiven 2.4x18mm 73-2418 - [id number] Implanted:Qty : 1 on 02/07/2024 by Heladio Nguyen MD at [facility] Screw N/A: Sternum BIOMET MCRFXTN - B[place] RACHEL 73-2418 / / Screw Sternalock Stiven 2.4x18mm 73-2418 - [id number] Implanted:Qty : 1 on 02/07/2024 by Heladio Nguyen MD at [facility] Screw N/A: Sternum BIOMET MCRFXTN - [place] RACHEL 73-2418 / / Screw Sternalock Stiven 2.4x18mm 73-2418 - [id number] Implanted:Qty : 1 on 02/07/2024 by Heladio Nguyen MD at [facility] Screw N/A: Sternum BIOMET MCRFXTN - [place] RACHEL 73-2418 / / Screw Sternalock Stiven 2.4x18mm 73-2418 - [id number] Implanted:Qty : 1 on 02/07/2024 by Heladio Nguyen MD at [facility] Screw N/A: Sternum BIOMET MCRFXTN - [place] RACHEL 73-2418 / / Screw Sternalock Stiven 2.4x18mm 73-2418 - [id number] Implanted:Qty : 1 on 02/07/2024 by Heladio Nguyen MD at [facility] Screw N/A: Sternum BIOMET MCRFXTN - [place] RACHEL 73-2418 / / Screw Sternalock Stiven 2.4x18mm 73-2418 - [id number] Implanted:Qty : 1 on 02/07/2024 by Heladio Nguyen MD at [facility] Screw N/A: Sternum BIOMET MCRFXTN - B[place] RACHEL 73-2418 / / Log [id number] - Theo Dynesys Lumbar Fixation - 1 - Spacer Dynesys 45mm 2/Ea 10.645 Implanted:Qty : 1 on 06/16/2010 Spacer N/A: Spine Lumbar THEO US INC 08/13/2012 01.0371 0.645 / NA / [id number] Description:two per package Log [id number] - Theo Dynesys Lumbar Fixation - 1 - Spacer Dynesys 45mm 2/Ea 10.645 Implanted:Qty : 1 on 06/16/2010 Spacer N/A: Spine Lumbar THEO [employer] INC 08/13/2012 01.0371 0.645 / NA / [id number] H Plate 6-Hole Implanted:Qty : 1 on 02/07/2024 by Heladio Nguyen MD at [facility] N/A: Sternum THEO BIOMET- 115.102 .06 / / H Plate 6-Hole Implanted:Qty : 1 on 02/07/2024 by Heladio Nguyen MD at [facility] N/A: Sternum THEO BIOMET- 115.102 .06 / / Gold Plate Implanted:Qty : 1 on 02/07/2024 by Heladio Nguyen MD at [facility] N/A: Sternum THEO BIOMET- 115.604 .06 / / Explanted Type Area Asphalt Dauber Device Identifier Shelf Expiration Date Model / Serial / Lot Log [id number] - Theo Dynesys Lumbar Fixation - 1 - Cord Dynesys 100mm [id number] Explanted:Qty: 1 on 06/16/2010 Other N/A: Spine Lumbar THEO US INC 35670.1 00 / NA / NA Description:EXPLANTED EXISTI NG HARDWARE DUE TO NEED FOR EXTENSION PER RADHA THEO REP Log [id number] - Theo Dynesys Lumbar Fixation - 1 - Spacer Dynesys 45mm 2/Ea 10.645 Explanted:Qty: 1 on 06/16/2010 Spacer N/A: Spine Lumbar [employer] [id number] 45 / NA / NA Description:EXPLANTED EXISTI NG HARDWARE DUE TO NEED FOR EXTENSION PER RADHA THEO REP Procedures Procedure Name Priority Date/Time Associated Diagnosis Comments HEMOGLOBIN A1C Routine 01/25/2024 9:09 AM TRAVEL COUNSELOR AUTOMOBILE [employer]UB Type 2 diabetes mellitus with diabetic peripheral angiopathy without gangrene, with long-term current use of insulin ([facility]) LIPID RFLX Routine 09/27/2023 7:34 AM CDT Type 2 diabetes mellitus with hyperglycemia, with long-term current use of insulin ([facility]) Essential hypertension Mixed hyperlipidemia Class 1 obesity due to excess calories with serious comorbidity and body mass index (BMI) of 33.0 to 33.9 in adult MICROALBUMIN/CREATI NINE RATIO, RANDOM UR Routine 07/26/2020 8:26 AM CDT from Last 3 Months or Most Recently Relevant to Health Maintenance Results * (ABNORMAL) HEMOGLOBIN A1C (01/25/2024 9:09 AM TRAVEL COUNSELOR [employer]OM[employer]BI[employer]UB) HEMOGLOBIN A1C 7.4(H) <5.7 % of total Hgb [facility] Comment: For someone without known diabetes, a hemoglobin A1c value of 6.5% or greater indicates that they may have diabetes and this should be confirmed with a follow-up test. For someone with known diabetes, a value <7% indicates that their diabetes is well controlled and a value greater than or equal to 7% indicates suboptimal control. A1c targets should be individualized based on duration of diabetes, age, comorbid conditions, and other considerations. Currently, no consensus exists regarding use of hemoglobin A1c for diagnosis of diabetes for children. ESTIMATED AVERAGE GLUCOSE (MG/DL) 166 mg/dL [facility] ESTIMATED AVERAGE GLUCOSE (MMOL/L) 9.2 mmol/L [facility] Comment: Test Performed at: [facility] [address] [address] [address] Guerda Hart MD Blood 01/25/2024 9:09 AM TRAVEL COUNSELOR [employer] 01/26/2024 3:42 AM TRAVEL COUNSELOR [employer] us Collin Franklin PA-C CHEMISTRY ORDERABLES Final Resu lt [facility] [phone] [place], [place] [address] [address] [address] * (ABNORMAL) LIPID RFLX (09/27/2023 7:34 AM CDT) CHOLESTEROL 117 <200 mg/dL [facility] HDL 27(L) > OR = 40 mg/dL [facility] TRIGLYCERIDE 328(H) <150 mg/dL [facility] Comment: If a non-fasting specimen was collected, consider repeat triglyceride testing on a fasting specimen if clinically indicated. Taco et al. J. of Clin. Lipidol. 2015;9:129-169. LDL CALCULATED 55 mg/dL (calc) [facility] Comment: Reference range: <100 Desirable range <100 mg/dL for primary prevention; <70 mg/dL for patients with CHD or diabetic patients with > or = 2 CHD risk factors. LDL-C is now calculated using the Armando-Adarsh calculation, which is a validated novel method providing better accuracy than the Friedewald equation in the estimation of LDL-C. Armando SS et al. RAJINDER. 2013;310(19): 7028-1973 (http://education.Pocket Change Card/faq/GPX843) CHOL/HDL RATIO 4.3 <5.0 (calc) [facility] NON-HDL CHOLESTEROL 90 <130 mg/dL (calc) [facility] Comment: For patients with diabetes plus 1 major ASCVD risk factor, treating to a non-HDL-C goal of <100 mg/dL (LDL-C of <70 mg/dL) is considered a therapeutic option. Test Performed at: [facility] [address] [place] [address] Guerda Hart MD Blood 09/27/2023 7:34 AM CDT 09/27/2023 10:28 PM CDT Emelina Hinds PA-C CHEMISTRY ORDERABLES Fi nal Result [facility] [phone] [facility] [address] [place] [address] * (ABNORMAL) MICROALBUMIN/CREATININE RATIO, RANDOM UR (07/26/2020 8:26 AM CDT) MICROALBUMIN, URINE 10.0 No Reference Range mg/dL 07/26/2020 5:37 PM CDT [facility] CREATININE, URINE 51.6 40.0 - 278.0 mg/dL 07/26/2020 5:37 PM CDT [facility] Comment:Reference Range vari es with fluid intake and diet. MICROALBUMIN/ CREAT RATIO, UR 193.8(H) <17.0 mg/g 07/26/2020 5:37 PM CDT [facility] Urine URINE SPECIMEN OBTAINED BY CLEAN CATCH PROCEDURE / Unknown Collection / Unknown 07/26/2020 8:26 AM CDT 07/26/2020 2:55 PM CDT Narrative [facility] - 07/26/2020 5:37 PM CDT Condition Microalbumin/Creat ratio Normal Males <17 Normal Females <25 Microalbuminuria Males 17-299 Microalbuminuria Females 25-299 Overt proteinuria >=300 Princess Lopez NP URINE ORDERABLES Final Res ult [facility] CLIA# [id number] [address] [place] [address] from Last 3 Months or Most Recently Relevant to Health Maintenance Additional Health Concerns Active Problems Noted Date Diagnosed Date Heart Failure Problem 02/23/2024 Heart Failure Problem 02/25/2024 Heart Failure Problem 02/25/2024 Heart Failure Problem 02/25/2024 Heart Failure Problem 02/25/2024 Heart Failure Problem 02/25/2024 Heart Failure Problem 02/25/2024 Heart Failure Problem 02/25/2024 Heart Failure Problem 02/25/2024 Heart Failure Problem 02/25/2024 Heart Failure Problem 02/25/2024 Heart Failure Problem 02/25/2024 Heart Failure Problem 02/25/2024 Heart Failure Problem 03/02/2024 Heart Failure Problem 03/21/2024 Heart Failure Problem 03/21/2024 Heart Failure Problem 03/21/2024 Heart Failure Problem 03/21/2024 Heart Failure Problem 03/22/2024 Heart Failure Problem 03/22/2024 Heart Failure Problem 03/23/2024 Heart Failure Problem 03/23/2024 Heart Failure Problem 03/23/2024 Heart Failure Problem 03/27/2024 Heart Failure Problem 03/27/2024 Heart Failure Problem 03/27/2024 Heart Failure Problem 03/27/2024 Insurance MEDICARE PART A AND B * Guarantor: KATERIN SHETTY Account Type Relation to Patient Date of Phone Billing Address Personal/Family [id number] [place] [address] RX [employer]OSSING Medicaid RX [employer] PLANS (INTERNAL) [facility] Plans RX [facility] Medicare Part D Advance Directives For more information, please contact: [phone] * Full Code (Latest Code Status on File) Date Activated Date Inactivated Comments 04/11/2024 3:44 PM 04/12/2024 1:56 PM * Full Code Date Activated Date Inactivated Comments 02/07/2024 12:51 PM 02/12/2024 3:01 PM * Full Code Date Activated Date Inactivated Comments 02/02/2024 6:30 AM 02/07/2024 12:51 PM
--- OUTSIDE RECORDS SUMMARY | 2024-09-26 10:33 | XMS_ITS | Encounter Summary ---
Author Organization [facility] Address [address] [place] [address] Care Team Providers Care Salesperson Recreational Vehicles Name Role Phone Yesenia Maria DO Primary Care Provider [phone] Encounter Details Date Type Department Care Team (Late st Contact Info) Description 02/29/2008 Outpatient Historical [facility] DEFAULT DEPARTMENT Miguel Hayden MD [address] [address] Social History Tobacco Use Types Packs/Day Years Used Date Smoking Tobacco: Never Assessed Sex and Gender Information Value Date Recorded Sex Assigned at Not on file 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 Gender Identity Not on file Sexual Orientation Not on file documented as of this encounter Plan of Treatment Not on file documented as of this encounter Procedures Procedure Name Priority Date/Time Associated Diagnosis Comments NM MYOCARD PERF IMAG SPECT SINGL Routine 03/14/2008 12:51 PM SEMI TRUCK DRIVER documented in this encounter Results * NM MYOCARD PERF IMAG SPECT SINGL (03/14/2008 12:51 PM SEMI TRUCK DRIVER) 03/14/2008 12:5 1 PM SEMI TRUCK DRIVER Narrative INTERFACE SYSTEM - 03/14/2008 12:51 PM SEMI TRUCK DRIVER Radionuclide Myocardial Perfusion SPECT Rest/Adenosine Stress Wall Motion and Ejection FractionEvaluation: Radiopharmaceutical: Tc-99m (technetium-99m) MyoviewDose: 10.8 mCi (rest) / 31.4 mCi (stress)Reason for Consultation: Precordial chest pain. Evaluation of myocardial perfusion. The initial static images demonstrate that the heart is overall normal in size. There is a normallevel of activity throughout the lungs. Right ventricular activity appears normal. The leftventricular wall does not appear thickened. The left ventricular cavity did not appear to dilatewith the adenosine stress. The distribution of tracer around the left ventricle is relativelyuniform on the immediate post adenosine images. There were no areas that showed obvious intervalimprovement in tracer concentration on the resting study. Evaluation of left ventricular wall motion demonstrates normal wall motion and wall thickeningthroughout the left ventricular myocardium. The resting left ventricular ejection fraction was 57 %. Impression: There is no obvious evidence for adenosine induced cardiac ischemia or failure on this examination. There is normal resting left ventricular systolic function. - Dictated By: Geronimo Alvarez M.D. Electronically Signed By: Geronimo Alvarez M.D. Date Signed: 07/08/06 Procedure Note 02/02/2009 Radionuclide Myocardial Perfusion SPECT Rest/Adenosine Stress Wall Motionand Ejection FractionEvaluation: Radiopharmaceutical: Tc-99m (technetium-99m) MyoviewDose: 10.8 mCi (rest) / 31.4 mCi (stress)Reason for Consultation: Precordial chest pain. Evaluation of myocardial perfusion. The initial static images demonstrate that the heart is overall normal insize. There is a normallevel of activity throughout the lungs. Right ventricular activity appearsnormal. The leftventricular wall does not appear thickened. The left ventricular cavity did not appear todilatewith the adenosine stress. The distribution of tracer around the left ventricle isrelativelyuniform on the immediate post adenosine images. There were no areas that showed obviousintervalimprovement in tracer concentration on the resting study. Evaluation of left ventricular wall motion demonstrates normal wall motionand wall thickeningthroughout the left ventricular myocardium. The resting left ventricular ejection fraction was 57 %. Impression: There is no obvious evidence for adenosine induced cardiac ischemia orfailure on this examination. There is normal resting left ventricular systolic function. - Dictated By: Geronimo Alvarez M.D. Electronically Signed By: Geronimo Alvarez M.D. Date Signed: 07/08/06 us Yuri Richter MD NM ORDERABLES Final Result INTERFACE SYSTEM Refer to clinic/hospital department documented in this encounter Visit Diagnoses Not on filedocumented in this encounter Additional Health Concerns Infection Onset Date Last Indicated Resolved Time R/O COVID-19 01/26/2020 01/26/2020 01/28/2020 1:46 AM SEMI TRUCK DRIVER documented as of this encounter Care Teams Salesperson Recreational Vehicles Relationship Specialty Start Date End Date Yesenia Maria DO PCP - General Family Practice 04/18/20 07/14/20 documented as of this encounter
--- OUTSIDE RECORDS SUMMARY | 2024-09-26 10:33 | XMS_ITS | Encounter Summary ---
Author Organization [facility] Address [address] [place] [address] Care Team Providers Care Electrotyper Name Role Phone CrowNuryslaith CALHOUN Primary Care Provider [phone] Reason for Referral * Outpatient Services (Routine) - Closed Specialty Diagnoses / Procedures Referred By Contac t Referred To Contact Diagnoses S/P lumbar fusion Disorders of sacrum Procedures XR FLUORO NEEDLE GUIDANCE Adrienne Will PA [address] [place] [address] Phone: tel: fax: Referral ID Status Reason Start Date Expiration Date Visits Re quested Visits Authorized [id number] Closed 04/06/2011 04/05/2012 1 1 UNICATIONS MEDIA PROFESSOR Encounter Details Date Type Department Care Team (Late st Contact Info) Description 04/06/2011 Ancillary Orders [facility] Pain Management[address] 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 Exam was auto-finalized. Procedure Note Ashley Concepcion, RT - 04/06/2011 Order information only. Exam was auto-finalized. us Adrienne CHAPA DIAGNOSTIC IMAGING ORDERABLES Fi nal Result documented in this encounter Visit Diagnoses Diagnosis S/P lumbar fusion Arthrodesis status Disorders of sacrum S/P lumbar fusion Arthrodesis status Disorders of sacrum documented in this encounter Additional Health Concerns Infection Onset Date Last Indicated Resolved Time R/O COVID-19 01/26/2020 01/26/2020 01/28/2020 1:46 AM COMMUNICATIONS MEDIA PROFESSOR documented as of this encounter Care Teams Electrotyper Relationship Specialty Start Date End Date Yesenia Maria DO PCP - General Family Practice 04/18/20 07/14/20 documented as of this encounter
--- OUTSIDE RECORDS SUMMARY | 2024-09-26 10:33 | XMS_ITS | Encounter Summary ---
Author Organization [facility] Address [address] [place] [address] Care Team Providers Care Technical Account Executive Name Role Phone Yesenia Maria Primary Care Provider [phone] Encounter Details Date Type Department Care Team (Latest Contact Info) Description 10/12/2008 Outpatient Historical [facility] [address] [place] [address] Miguel Hayden MD [address] [id number] Arthrodesis Status (Primary Dx); Thoracic or Lumbosacral Neuritis or Radiculitis, Unspecified; Lumbago Social History Tobacco Use Types Packs/Day Years Used Date Smoking Tobacco: Former Cigarettes Q uit: 12/14/2007 Comments:may smoke occassion ally Alcohol Use Standard Drinks/Week Comments No 0 (1 standard drink = 0.6 oz pur e alcohol) Sex and Gender Information Value Date Recorded Sex Assigned at Not on file 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 Gender Identity Not on file Sexual Orientation Not on file documented as of this encounter Plan of Treatment Not on file documented as of this encounter Visit Diagnoses Diagnosis Arthrodesis status- Primary Thoracic or lumbosacral neuritis or radiculitis, unspecified Lumbago documented in this encounter Additional Health Concerns Infection Onset Date Last Indicated Resolved Time R/O COVID-19 01/26/2020 01/26/2020 01/28/2020 1:46 AM REMEDIAL READING TEACHER documented as of this encounter Care Teams Technical Account Executive Relationship Specialty Start Date End Date Yesenia Maria DO PCP - General Family Practice 04/18/20 07/14/20 documented as of this encounter
--- OUTSIDE RECORDS SUMMARY | 2024-09-26 10:33 | XMS_ITS | Encounter Summary ---
Author Organization [facility] Address [address] [place] [address] Care Team Providers Care Cell Pourer Name Role Phone Yesenia Maria DO Primary Care Provider [phone] Encounter Details Date Type Department Care Team (Late st Contact Info) Description 01/15/2008 Outpatient Historical [facility] Miguel Hayden MD [address] [address] Social History Tobacco Use Types Packs/Day Years Used Date Smoking Tobacco: Never Assessed Sex and Gender Information Value Date Recorded Sex Assigned at Not on file Legal 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 BUTTONHOLE MAKER HAND Gender Identity Not on file Sexual Orientation Not on file documented as of this encounter Plan of Treatment Not on file documented as of this encounter Procedures Procedure Name Priority Date/Time Associated Diagnosis Comments POC GLUCOSE Routine 02/07/2008 7:52 AM BUTTONHOLE MAKER HAND CBC WITH DIFFERENTIAL Routine 02/07/2008 6:49 AM BUTTONHOLE MAKER HAND BASIC METABOLIC PANEL Routine 02/07/2008 6:49 AM BUTTONHOLE MAKER HAND POC GLUCOSE Routine 02/07/2008 5:12 AM BUTTONHOLE MAKER HAND POC GLUCOSE Routine 02/06/2008 8:38 PM BUTTONHOLE MAKER HAND POC GLUCOSE Routine 02/06/2008 2:17 PM BUTTONHOLE MAKER HAND POC GLUCOSE Routine 02/06/2008 10:19 AM BUTTONHOLE MAKER HAND XR FLUORO GREATER THAN 1 HOUR Routine 02/06/2008 10:07 AM BUTTONHOLE MAKER HAND documented in this encounter Results * (ABNORMAL) POC GLUCOSE (02/07/2008 7:52 AM BUTTONHOLE MAKER HAND) GLUCOSE POC 165(H) 60 - 100 mg/dL [facility] Venous blood specimen (specimen) 02/07/2008 7:52 AM BUTTONHOLE MAKER HAND 02/07/2008 11:42 PM BUTTONHOLE MAKER HAND us Miguel Hayden MD POINT OF CARE TESTING Final Re sult INTERFACE SYSTEM Refer to clinic/hospital department [facility] CLIA# [id number] [address] [place] [address] * (ABNORMAL) BASIC METABOLIC PANEL (02/07/2008 6:49 AM BUTTONHOLE MAKER HAND) ANION GAP 12 9 - 20 mEq/L [facility] SODIUM 139 136 - 145 mEq/L [facility] CREATININE 1.2 0.7 - 1.5 mg/dL [facility] CO2 25 22 - 32 mmol/l [facility] GLUCOSE 226(H) 70 - 110 mg/dL [facility] POTASSIUM 3.6 3.5 - 5.0 mEq/L [facility] OSMOLALITY, CALCULATED 296(H) 275 - 295 mOsm/Kg [facility] CALCIUM 9.0 8.4 - 10.5 mg/dL [facility] BUN 22(H) 9 - 20 mg/dL [facility] CHLORIDE 106 95 - 110 mEq/L [facility] Blood specimen (specimen) 02/07/2008 6:49 AM BUTTONHOLE MAKER HAND 02/07/2008 7:17 AM BUTTONHOLE MAKER HAND us Miguel Hayden MD CHEMISTRY ORDERABLES Final Res ult INTERFACE SYSTEM Refer to clinic/hospital department [facility] CLIA# [id number] [facility] [place] [address] * (ABNORMAL) CBC WITH DIFFERENTIAL (02/07/2008 6:49 AM BUTTONHOLE MAKER HAND) HEMATOCRIT 39.0(L) 41.0 - 53.0 % [facility] EOSINOPHILS 0.1 0.0 - 7.0 % [facility] PLATELETS 167 140 - 440 K/ul [facility] EOSINOPHIL ABSOLUTE 0.0 0.0 - 0.7 K/ul [facility] RBC 4.45(L) 4.60 - 6.20 Mil/ul [facility] LYMPHOCYTES 21.0(L) 24.0 - 44.0 % [facility] MCHC 34.4 30.0 - 35.0 g/dL [facility] LYMPHOCYTE ABSOLUTE 1.7 1.2 - 4.0 K/ul [facility] MCV 87.6 84.0 - 103.[address] [facility] MPV 10.6 8.9 - 12.[address] [facility] BASOPHILS ABSOLUTE 0.0 0.0 - 0.2 K/ul [facility] BASOPHILS 0.4 0.0 - 1.0 % [facility] HEMOGLOBIN 13.4(L) 14.0 - 18.0 g/dL [facility] RDW 12.9 11.0 - 14.5 % [facility] MONOCYTE ABSOLUTE 1.2(H) 0.1 - 0.6 K/ul [facility] MONOCYTES 14.3(H) 2.0 - 10.0 % [facility] WBC 8.0 4.5 - 11.0 K/ul [facility] MCH 30.1 27.0 - 34.[address] [facility] NEUTROPHIL ABSOLUTE 5.2 2.0 - 8.0 K/ul [facility] NEUTROPHILS 64.2 42.2 - 75.2 % [facility] Blood specimen (specimen) 02/07/2008 6:49 AM BUTTONHOLE MAKER HAND 02/07/2008 7:17 AM BUTTONHOLE MAKER HAND us Miguel Hayden MD HEMATOLOGY ORDERABLES Final Re sult Performing Organization Address [facility] de Phone Number INTERFACE SYSTEM Refer to clinic/hospital department [facility] CLIA# [id number] [address] [place] [address] * (ABNORMAL) POC GLUCOSE (02/07/2008 5:12 AM BUTTONHOLE MAKER HAND) GLUCOSE POC 295(H) 60 - 100 mg/dL [facility] Venous blood specimen (specimen) 02/07/2008 5:12 AM BUTTONHOLE MAKER HAND 02/08/2008 2:42 AM BUTTONHOLE MAKER HAND us Miguel Hayden MD POINT OF CARE TESTING Final Re sult Performing Organization Address [facility] Phone Number INTERFACE SYSTEM Refer to clinic/hospital department [facility] CLIA# [id number] [address] [place] [address] * (ABNORMAL) POC GLUCOSE (02/06/2008 8:38 PM BUTTONHOLE MAKER HAND) GLUCOSE POC 199(H) 60 - 100 mg/dL [facility] Venous blood specimen (specimen) 02/06/2008 8:38 PM BUTTONHOLE MAKER HAND 02/06/2008 11:52 PM BUTTONHOLE MAKER HAND us Miguel Hayden MD POINT OF CARE TESTING Final Re sult Performing Organization Address [facility] Phone Number INTERFACE SYSTEM Refer to clinic/hospital department [facility] CLIA# [id number] [address] [place] [address] * (ABNORMAL) POC GLUCOSE (02/06/2008 2:17 PM BUTTONHOLE MAKER HAND) GLUCOSE POC 152(H) 60 - 100 mg/dL [facility] Venous blood specimen (specimen) 02/06/2008 2:17 PM BUTTONHOLE MAKER HAND 02/06/2008 11:52 PM BUTTONHOLE MAKER HAND Result Jasvir Hayden MD POINT OF CARE TESTING Final Re sult Performing Organization Address [facility] Phone Number INTERFACE SYSTEM Refer to clinic/hospital department [facility] CLIA# [id number] [address] [place] [address] * (ABNORMAL) POC GLUCOSE (02/06/2008 10:19 AM BUTTONHOLE MAKER HAND) GLUCOSE POC 153(H) 60 - 100 mg/dL [facility] Venous blood specimen (specimen) 02/06/2008 10:19 AM BUTTONHOLE MAKER HAND 02/07/2008 2:44 AM BUTTONHOLE MAKER HAND us Miguel Hayden MD POINT OF CARE TESTING Final Re sult Performing Organization Address [facility] Phone Number INTERFACE SYSTEM Refer to clinic/hospital department [facility] CLIA# [id number] [address] [place] [address] * XR FLUORO > 1 HOUR (02/06/2008 10:07 AM BUTTONHOLE MAKER HAND) Anatomical Region Laterality Modality Other 02/06/2008 10:0 7 AM BUTTONHOLE MAKER HAND Narrative 02/06/2008 10:07 AM BUTTONHOLE MAKER HAND Finalized by [employer] utility. No report expected. Procedure Note 03/25/2008 Finalized by interface [employer] utility. No report expected. Result Jasvir Hayden MD DIAGNOSTIC IMAGING ORDERABLES Final Result documented in this encounter Visit Diagnoses Not on filedocumented in this encounter Additional Health Concerns Infection Onset Date Last Indicated Resolved Time R/O COVID-19 01/26/2020 01/26/2020 01/28/2020 1:46 AM BUTTONHOLE MAKER HAND documented as of this encounter Care Teams Cell Pourer Relationship Specialty Start Date End Date Yesenia Maria DO PCP - General Family Practice 04/18/20 07/14/20 documented as of this encounter
--- OUTSIDE RECORDS SUMMARY | 2024-09-26 10:33 | XMS_ITS | Encounter Summary ---
Author Organization [facility] Address [address] [place] [address] Care Team Providers Care Fabric Normalizer Name Role Phone Yesenia Maria DO Primary Care Provider [phone] Encounter Details Date Type Department Care Team (Latest Contact Info) Description 10/12/2007 Outpatient [facility] [address] [place] [address] [facility] [address] [place] [address] Miguel Hayden MD [address] [place] [address] Pain in Joint, Shoulder Region; Pain in Soft Tissues of Limb Social History Tobacco Use Types Packs/Day Years Used Date Smoking Tobacco: Never Assessed Sex and Gender Information Value Date Recorded Sex Assigned at Not on file 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 Gender Identity Not on file Sexual Orientation Not on file documented as of this encounter Plan of Treatment Not on file documented as of this encounter Visit Diagnoses Diagnosis Pain in joint, shoulder region Pain in limb documented in this encounter Additional Health Concerns Infection Onset Date Last Indicated Resolved Time R/O COVID-19 01/26/2020 01/26/2020 01/28/2020 1:46 AM BEAMING MACHINE OPERATOR documented as of this encounter Care Teams Fabric Normalizer Relationship Specialty Start Date End Date Yesenia Maria DO PCP - General Family Practice 04/18/20 07/14/20 documented as of this encounter
--- OUTSIDE RECORDS SUMMARY | 2024-09-26 10:33 | XMS_ITS | Encounter Summary ---
Author Organization [facility] Address [address] [place] [address] Care Team Providers Care Case Checker Name Role Phone Yesenia Maria DO Primary Care Provider [phone] Encounter Details Date Type Department Care Team (Late st Contact Info) Description 10/19/2007 Outpatient Historical [facility] DEFAULT DEPARTMENT Miguel Hayden MD [address] [phone] Social History Tobacco Use Types Packs/Day Years Used Date Smoking Tobacco: Never Assessed Sex and Gender Information Value Date Recorded Sex Assigned at Not on file Legal 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
--- OUTSIDE RECORDS SUMMARY | 2024-09-26 10:33 | XMS_ITS | Encounter Summary ---
Author Organization [facility] Address [address] [place] [address] Care Team Providers Care Office Services Representative Name Role Phone Yesenia Maria DO Primary Care Provider [phone] Encounter Details Date Type Department Care Team (Latest Contact Info) Description 11/16/2008 Outpatient Historical [facility] [address] [place] [address] Ajay Bustamante DO [address] [place] [address] Other Joint Derangement, not Elsewhere [...] on file Legal 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 STUDY SPECIALIST Gender Identity Not on file Sexual Orientation Not on file documented as of this encounter Plan of Treatment Not on file documented as of this encounter Visit Diagnoses Diagnosis Other joint derangement, not elsewhere classified, ankle and foot- Primary documented in this encounter Additional Health Concerns Infection Onset Date Last Indicated Resolved Time R/O COVID-19 01/26/2020 01/26/2020 01/28/2020 1:46 AM STUDY SPECIALIST documented as of this encounter Care Teams Office Services Representative Relationship Specialty Start Date End Date Yesenia Maria DO PCP - General Family Practice 04/18/20 07/14/20 documented as of this encounter
--- OUTSIDE RECORDS SUMMARY | 2024-09-26 10:33 | XMS_ITS | Encounter Summary ---
Author Organization [facility] Address [address] [place] [address] Care Team Providers Care Claim Adjuster Name Role Phone Yesenia Maria DO Primary Care Provider [phone] Encounter Details Date Type Department Care Team (Latest Contact Info) Description 02/16/2008 Outpatient Historical [facility] [address] [place] [address] [facility] [address] [place] [address] Abdifatah De La Fuente PA [address] [address] Miguel Hayden MD [address] [address] Lumbago; Unspecified Essential Hypertension; Unspecified Arthropathy, Site Unspecified; Unspecified Asthma Social History Tobacco Use Types Packs/Day Years Used Date Smoking Tobacco: Never Assessed Sex and Gender Information Value Date Recorded Sex Assigned at Not on file Legal 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 POLE CUTTER Gender Identity Not on file Sexual Orientation Not on file documented as of this encounter Plan of Treatment Not on file documented as of this encounter Visit Diagnoses Diagnosis Lumbago Unspecified essential hypertension Arthropathy, unspecified, site unspecified Unspecified asthma(493.90) Unspecified asthma documented in this encounter Additional Health Concerns Infection Onset Date Last Indicated Resolved Time R/O COVID-19 01/26/2020 01/26/2020 01/28/2020 1:46 AM POLE CUTTER documented as of this encounter Care Teams Claim Adjuster Relationship Specialty Start Date End Date Yesenia Maria DO PCP - General Family Practice 04/18/20 07/14/20 documented as of this encounter
--- OUTSIDE RECORDS SUMMARY | 2024-09-26 10:33 | XMS_ITS | Encounter Summary ---
Author Organization [facility] Address [address] [place] [address] Care Team Providers Care Material Damage Appraiser Name Role Phone Yesenia Maria DO Primary Care Provider [phone] Encounter Details Date Type Department Care Team (Late st Contact Info) Description 12/22/2007 Outpatient Historical [facility] DEFAULT DEPARTMENT Miguel Hayden MD [address] [phone] Social History Tobacco Use Types Packs/Day Years Used Date Smoking Tobacco: Never Assessed Sex and Gender Information Value Date Recorded Sex Assigned at Not on file Legal 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 SALES LEADER Gender Identity Not on file Sexual Orientation Not on file documented as of this encounter Plan of Treatment Not on file documented as of this encounter Visit Diagnoses Not on filedocumented in this encounter Additional Health Concerns Infection Onset Date Last Indicated Resolved Time R/O COVID-19 01/26/2020 01/26/2020 01/28/2020 1:46 AM SALES LEADER documented as of this encounter Care Teams Material Damage Appraiser Relationship Specialty Start Date End Date Yesenia Maria DO PCP - General Family Practice 04/18/20 07/14/20 documented as of this encounter
--- OUTSIDE RECORDS SUMMARY | 2024-09-26 10:33 | XMS_ITS | Encounter Summary ---
Author Organization [employer] [facility] Address [address] [place] [address] Care Team Providers Care Laborer Construction Or Leak Gang Name Role Phone Yesenia Maria DO Primary Care Provider [phone] Encounter Details Date Type Department Care Team (Latest Contact Info) Description 10/20/2008 Outpatient Historical [facility] [address] [place] [address] Piyush Sahu MD [address] [place] [address] Yuri Richter MD NO ADDRESS ON FILE Unspecified Site of Ankle Sprain and Strain (Primary Dx); Other Overexertion and Strenuous and Repetitive Movements or Loads; Place of Occurrence, Home Social History Tobacco Use Types Packs/Day Years Used Date Smoking Tobacco: Former Cigarettes Q uit: 12/14/2007 Comments:may smoke occassion ally Alcohol Use Standard Drinks/Week Comments No 0 (1 standard drink = 0.6 oz pur e alcohol) Sex and Gender Information Value Date Recorded Sex Assigned at Not on file Legal 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 REPAIRING CALIBRATOR Gender Identity Not on file Sexual Orientation Not on file documented as of this encounter Plan of Treatment Not on file documented as of this encounter Visit Diagnoses Diagnosis Sprain of ankle, unspecified site- Primary Other overexertion and strenuous and repetitive movements or loads Place of occurrence, home documented in this encounter Additional Health Concerns Infection Onset Date Last Indicated Resolved Time R/O COVID-19 01/26/2020 01/26/2020 01/28/2020 1:46 AM REPAIRING CALIBRATOR documented as of this encounter Care Teams Laborer Construction Or Leak Gang Relationship Specialty Start Date End Date Yesenia Maria DO PCP - General Family Practice 04/18/20 07/14/20 documented as of this encounter
--- OUTSIDE RECORDS SUMMARY | 2024-09-26 10:33 | XMS_ITS | Encounter Summary ---
Author Organization [facility] Address [address] [place] [address] Care Team Providers Care Glass Unloading Equipment Tender Name Role Phone Yesenia Maria DO Primary Care Provider [phone] Encounter Details Date Type Department Care Team (Latest Contact Info) Description 10/21/2006 Outpatient Historical [facility] Orthoped[address] [place] [address] Ajay Bustamante, DO [address] [place] [address] Other Joint Derangement, not Elsewhere Classified, Ankle and Foot (Primary Dx) Social History Tobacco Use Types Packs/Day Years Used Date Smoking Tobacco: Never Assessed Sex and Gender Information Value Date Recorded Sex Assigned at Not on file Legal 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 PHOTOGRAPHER APPRENTICE LITHOGRAPHIC Gender Identity Not on file Sexual Orientation Not on file documented as of this encounter Plan of Treatment Not on file documented as of this encounter Visit Diagnoses Diagnosis Other joint derangement, not elsewhere classified, ankle and foot- Primary documented in this encounter Additional Health Concerns Infection Onset Date Last Indicated Resolved Time R/O COVID-19 01/26/2020 01/26/2020 01/28/2020 1:46 AM PHOTOGRAPHER APPRENTICE LITHOGRAPHIC documented as of this encounter Care Teams Glass Unloading Equipment Tender Relationship Specialty Start Date End Date Yesenia Maria DO PCP - General Family Practice 04/18/20 07/14/20 documented as of this encounter
--- OUTSIDE RECORDS SUMMARY | 2024-09-26 10:33 | XMS_ITS | Encounter Summary ---
Author Organization [facility] Address [address] [place] [address] Care Team Providers Care Sanitizer Name Role Phone Yesenia Maria DO Primary Care Provider [phone] Encounter Details Date Type Department Care Team (Late st Contact Info) Description 04/28/2007 Outpatient Historical [facility] Pain Management- [address] [place] [phone] Ajay Rodriguez MD NO ADDRESS ON FILE Social History Tobacco Use Types Packs/Day Years Used Date Smoking Tobacco: Never Assessed Sex and Gender Information Value Date Recorded Sex Assigned at Not on file Legal 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 DEXIGRAPH OPERATOR Gender Identity Not on file Sexual Orientation Not on file documented as of this encounter Plan of Treatment Not on file documented as of this encounter Visit Diagnoses Not on filedocumented in this encounter Additional Health Concerns Infection Onset Date Last Indicated Resolved Time R/O COVID-19 01/26/2020 01/26/2020 01/28/2020 1:46 AM DEXIGRAPH OPERATOR documented as of this encounter Care Teams Sanitizer Relationship Specialty Start Date End Date Yesenia Maria DO PCP - General Family Practice 04/18/20 07/14/20 documented as of this encounter
--- OUTSIDE RECORDS SUMMARY | 2024-09-26 10:33 | XMS_ITS | Encounter Summary ---
Author Organization [facility] Address [address] [place] [address] Care Team Providers Care Learning And Development Specialist Name Role Phone Yesenia Maria DO Primary Care Provider [phone] Encounter Details Date Type Department Care Team (Late st Contact Info) Description 06/04/2008 Outpatient Historical [facility] [address] [place] [address] Piyush Sahu MD [address] [place] [address] Yuri Richter MD NO ADDRESS ON FILE Unspecified Infective Otitis Externa (Primary Dx); Unspecified Perforation of Tympanic Membrane Social History Tobacco Use Types Packs/Day Years Used Date Smoking Tobacco: Former Cigarettes Q uit: 12/14/2007 Alcohol Use Standard Drinks/Week Comments Not Asked 0 (1 standard drink = 0.6 oz pur e alcohol) Sex and Gender Information Value Date Recorded Sex Assigned at Not on file Legal 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 CHHA Gender Identity Not on file Sexual Orientation Not on file documented as of this encounter Plan of Treatment Not on file documented as of this encounter Visit Diagnoses Diagnosis Infective otitis externa, unspecified- Primary Perforation of tympanic membrane, unspecified documented in this encounter Additional Health Concerns Infection Onset Date Last Indicated Resolved Time R/O COVID-19 01/26/2020 01/26/2020 01/28/2020 1:46 AM CHHA documented as of this encounter Care Teams Learning And Development Specialist Relationship Specialty Start Date End Date Yesenia Maria DO PCP - General Family Practice 04/18/20 07/14/20 documented as of this encounter
--- OUTSIDE RECORDS SUMMARY | 2024-09-26 10:33 | XMS_ITS | Encounter Summary ---
Author Organization [facility] Address [address] [place] [address] Care Team Providers Care Exercise Physiologist Certified Name Role Phone Yesenia Maria DO Primary Care Provider [phone] Encounter Details Date Type Department Care Team (Late st Contact Info) Description 03/01/2007 Outpatient [facility] [address] [place] [phone] Jacqueline Thakkar MD [address] [address] Social History Tobacco Use Types Packs/Day Years Used Date Smoking Tobacco: Never Assessed Sex and Gender Information Value Date Recorded Sex Assigned at Not on file Legal 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 UNIVERSITY REGISTRAR Gender Identity Not on file Sexual Orientation Not on file documented as of this encounter Plan of Treatment Not on file documented as of this encounter Visit Diagnoses Not on filedocumented in this encounter Additional Health Concerns Infection Onset Date Last Indicated Resolved Time R/O COVID-19 01/26/2020 01/26/2020 01/28/2020 1:46 AM UNIVERSITY REGISTRAR documented as of this encounter Care Teams Exercise Physiologist Certified Relationship Specialty Start Date End Date Yesenia Maria DO PCP - General Family Practice 04/18/20 07/14/20 documented as of this encounter
--- OUTSIDE RECORDS SUMMARY | 2024-09-26 10:33 | XMS_ITS | Encounter Summary ---
Author Organization [facility] Address [address] [place] [address] Care Team Providers Care Turkey Cleaner Name Role Phone Yesenia Maria DO Primary Care Provider [phone] Encounter Details Date Type Department Care Team (Late st Contact Info) Description 05/06/2007 Outpatient Historical [facility] [address] [place] [phone] Yuri Richter MD NO ADDRESS ON FILE Social History Tobacco Use Types Packs/Day Years Used Date Smoking Tobacco: Never Assessed Sex and Gender Information Value Date Recorded Sex Assigned at Not on file Legal 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 VISION MIXER Gender Identity Not on file Sexual Orientation Not on file documented as of this encounter Plan of Treatment Not on file documented as of this encounter Visit Diagnoses Not on filedocumented in this encounter Additional Health Concerns Infection Onset Date Last Indicated Resolved Time R/O COVID-19 01/26/2020 01/26/2020 01/28/2020 1:46 AM VISION MIXER documented as of this encounter Care Teams Turkey Cleaner Relationship Specialty Start Date End Date Yesenia Maria DO PCP - General Family Practice 04/18/20 07/14/20 documented as of this encounter
--- OUTSIDE RECORDS SUMMARY | 2024-09-26 10:33 | XMS_ITS | Encounter Summary ---
Author Organization [facility] Address [address] [place] [address] Care Team Providers Care Shotgun Shell Assembly Machine Adjuster Name Role Phone Cyndi Ko MD Primary Care Provide r Reason for Visit * Reason Comments Medication Refill Encounter Details Date Type Department Care Team (Late st Contact Info) Description 09/13/2020 Refill [facility] Internal Medicine and Pediatrics-[address] [place] [address] Vy Patricio, MISTI [address] [facility] [address] [place] [address] Social History Tobacco Use Types Packs/Day Years Used Date Smoking Tobacco: Every Day Cigarettes Smokeless Tobacco: Never Comments:Quit smoking: less than 1/2 pack per day Alcohol Use Standard Drinks/Week Comments No 0 (1 standard drink = 0.6 oz pur e alcohol) Sex and Gender Information Value Date Recorded Sex Assigned at Not on file Legal Sex Male 1:33 AM SOCIAL SCIENCE MANAGER Gender Identity Not on file Sexual Orientation Not on file documented as of this encounter Plan of Treatment Upcoming Encounters Date Type Department Care Team (Late Contact Info) Description 10/13/2024 1:40 PM CDT Appointment [facility] Family Medicine [address] [place] [address] Radu Dallsa [address] [place] [phone] documented as of this encounter Visit Diagnoses Not on filedocumented in this encounter Care Teams Shotgun Shell Assembly Machine Adjuster Relationship Specialty Start Date End Date Cyndi Ko MD [address] [place] [address] [place]MA [place] [address] PCP - General Family Practice 10/26/23 01/20/24 documented as of this encounter
--- OUTSIDE RECORDS SUMMARY | 2024-09-26 10:33 | XMS_ITS | Encounter Summary ---
Author Organization [facility] Address [address] [place] [address] Care Team Providers Care Audiovisual Technician Name Role Phone MariaYesenia dawson Primary Care Provider [phone] Encounter Details Date Type Department Care Team (Late st Contact Info) Description 11/22/2015 Ancillary Orders [facility] Orthopedics[address] [place] [address] Ajay Bustamante, DO [address] [place] [address] Bilateral shoulder pain, unspecified chronicity (Primary Dx) Social History Tobacco Use Types Packs/Day Years Used Date Smoking Tobacco: Every Day Cigarettes 0.3 30 Smokeless Tobacco: Never Comments:less than 1/2 pack per day Alcohol Use Standard Drinks/Week Comments No 0 (1 standard drink = 0.6 oz pur e alcohol) Sex and Gender Information Value Date Recorded Sex Assigned at Not on file Legal 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 SHEET FOLDER Gender Identity Not on file Sexual Orientation Not on file Occupation Industry Job Start Date Job End Date Not on file Not on file Not on file Not on file documented as of this encounter Plan of Treatment Not on file documented as of this encounter Results * XR SHOULDER 2+ VW BILAT (11/25/2015 10:37 AM CDT) Anatomical Region Laterality Modality Upper Extremity Computed Radiogr aphy Narrative 11/25/2015 11:12 AM CDT X-RAYS: The x-rays of the right shoulder were reviewed and revealed AC arthrosis, Grade 2 acromion, degenerative changes glenohumeral joint. The x-rays of the left shoulder were reviewed and revealed evidence of previous Chris, biceps tenodesis. No evidence of spur. Grade 1 acromion. Ajay Bustamante D.O. [facility] Orthopedics [facility] CDM:bjw Ajay Bustamante DO DIAGNOSTIC IMAGING ORDERABLES Final Result documented in this encounter Visit Diagnoses Diagnosis Bilateral shoulder pain, unspecified chronicity- Primary documented in this encounter Additional Health Concerns Infection Onset Date Last Indicated Resolved Time R/O COVID-19 01/26/2020 01/26/2020 01/28/2020 1:46 AM SHEET FOLDER documented as of this encounter Care Teams Audiovisual Technician Relationship Specialty Start Date End Date Yesenia Maria DO PCP - General Family Practice 04/18/20 07/14/20 documented as of this encounter
--- OUTSIDE RECORDS SUMMARY | 2024-09-26 10:33 | XMS_ITS | Encounter Summary ---
Author Organization [facility] Address [address] [place] [address] Care Team Providers Care Ingot Caster Name Role Phone Yesenia Maria DO Primary Care Provider [phone] Encounter Details Date Type Department Care Team (Latest Contact Info) Description 12/12/2007 Outpatient [facility] [address] [facility] [address] [place] [address] Miguel Hayden MD [address] [email or web address] [address] [place] [address] Lumbago; Unspecified Essential Hypertension; Unspecified Arthropathy, Site Unspecified; Unspecified Asthma Social History Tobacco Use Types Packs/Day Years Used Date Smoking Tobacco: Never Assessed Sex and Gender Information Value Date Recorded Sex Assigned at Not on file Legal 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 MEDICAL ACCOUNTANT Gender Identity Not on file Sexual Orientation Not on file documented as of this encounter Plan of Treatment Not on file documented as of this encounter Visit Diagnoses Diagnosis Lumbago Unspecified essential hypertension Arthropathy, unspecified, site unspecified Unspecified asthma(493.90) Unspecified asthma documented in this encounter Additional Health Concerns Infection Onset Date Last Indicated Resolved Time R/O COVID-19 01/26/2020 01/26/2020 01/28/2020 1:46 AM MEDICAL ACCOUNTANT documented as of this encounter Care Teams Ingot Caster Relationship Specialty Start Date End Date Yesenia Maria DO PCP - General Family Practice 04/18/20 07/14/20 documented as of this encounter
--- OUTSIDE RECORDS SUMMARY | 2024-09-26 10:33 | XMS_ITS | Encounter Summary ---
Author Organization [facility] Address [address] [place] [address] Care Team Providers Care Investment Director Name Role Phone Cyndi Ko MD Primary Care Provide r Reason for Visit * Reason Comments Medication Refill Encounter Details Date Type Department Care Team (Late st Contact Info) Description 10/15/2020 Refill [facility] Internal Medicine [address] [place] [address] Lakeisha Altamirano MD NO ADDRESS ON FILE Social History [...] on file Legal Sex Male 1:33 AM OUTBOUND SALES REPRESENTATIVE Gender Identity Not on file Sexual Orientation Not on file documented as of this encounter Plan of Treatment Upcoming Encounters Date Type Department Care Team (Late st Contact Info) Description 10/13/2024 1:40 PM CDT Appointment [facility] Family Medicine [address] [place] [address] [address] [place] [address] Radu [place] [address] [place] [address] documented as of this encounter Visit Diagnoses Not on filedocumented in this encounter Care Teams Investment Director Relationship Specialty Start Date End Date Cyndi Ko MD [address] [place] [address] [address] [place] [id number] PCP - General Family Practice 10/26/23 01/20/24 documented as of this encounter
--- OUTSIDE RECORDS SUMMARY | 2024-09-26 10:33 | XMS_ITS | Encounter Summary ---
Author Organization [facility] Address [address] [place] [address] Care Team Providers Care Coating Mixer Tender Name Role Phone Yesenia Maria DO Primary Care Provider [phone] Encounter Details Date Type Department Care Team (Late st Contact Info) Description 01/26/2008 Outpatient Historical [facility] PreAdmission Center [address] [place] [address] Miguel Hayden MD [address] [address] Social History Tobacco Use Types Packs/Day Years Used Date Smoking Tobacco: Never Assessed Sex and Gender Information Value Date Recorded Sex Assigned at Not on file Legal 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 SENIOR SUPPORT ANALYST Gender Identity Not on file Sexual Orientation Not on file documented as of this encounter Plan of Treatment Not on file documented as of this encounter Procedures Procedure Name Priority Date/Time Associated Diagnosis Comments NICOTINE SCREEN, URINE Stat 01/26/2008 2:46 PM SENIOR SUPPORT ANALYST CBC WITH DIFFERENTIAL Stat 01/26/2008 2:27 PM SENIOR SUPPORT ANALYST BASIC METABOLIC PANEL Stat 01/26/2008 2:27 PM SENIOR SUPPORT ANALYST documented in this encounter Results * NICOTINE SCREEN, URINE (01/26/2008 2:46 PM SENIOR SUPPORT ANALYST) NICOTINE SCREEN, URINE See Sep Report [facility] Urine specimen (specimen) 01/26/2008 2:46 PM SENIOR SUPPORT ANALYST 01/27/2008 8:25 AM SENIOR SUPPORT ANALYST us Miguel Hayden MD URINE ORDERABLES Final Result Performing Organization Address [facility] Phone Number INTERFACE SYSTEM Refer to clinic/hospital department [facility] CLIA# [id number] [address] [place] [address] * (ABNORMAL) BASIC METABOLIC PANEL (01/26/2008 2:27 PM SENIOR SUPPORT ANALYST) GLUCOSE 99 70 - 110 mg/dL [facility] CHLORIDE 105 95 - 110 mEq/L [facility] SODIUM 141 136 - 145 mEq/L [facility] ANION GAP 12 9 - 20 mEq/L [facility] BUN 21(H) 9 - 20 mg/dL [facility] CO2 29 22 - 32 mmol/l [facility] OSMOLALITY, CALCULATED 294 275 - 295 mOsm/Kg [facility] POTASSIUM 4.5 3.5 - 5.0 mEq/L [facility] Comment: Specimen slightly hemolyzed CREATININE 1.2 0.7 - 1.5 mg/dL [facility] CALCIUM 10.0 8.4 - 10.5 mg/dL [facility] Blood specimen (specimen) 01/26/2008 2:27 PM SENIOR SUPPORT ANALYST 01/26/2008 2:44 PM SENIOR SUPPORT ANALYST us Miguel Hayden MD CHEMISTRY ORDERABLES Final Res ult Performing Organization Address [facility] Phone Number INTERFACE SYSTEM Refer to clinic/hospital department [facility] CLIA# [id number] [address] [place] [address] * (ABNORMAL) CBC WITH DIFFERENTIAL (01/26/2008 2:27 PM SENIOR SUPPORT ANALYST) MONOCYTE ABSOLUTE 0.7(H) 0.1 - 0.6 K/ul [facility] HEMOGLOBIN 15.4 14.0 - 18.0 g/dL [facility] LYMPHOCYTES 38.5 24.0 - 44.0 % [facility] WBC 6.0 4.5 - 11.0 K/ul [facility] MCH 30.5 27.0 - 34.[address] [facility] MPV 10.3 8.9 - 12.[address] [facility] EOSINOPHIL ABSOLUTE 0.2 0.0 - 0.7 K/ul [facility] BASOPHILS 1.2(H) 0.0 - 1.0 % [facility] HEMATOCRIT 43.8 41.0 - 53.0 % [facility] RDW 12.8 11.0 - 14.5 % [facility] LYMPHOCYTE ABSOLUTE 2.3 1.2 - 4.0 K/ul [facility] MONOCYTES 11.8(H) 2.0 - 10.0 % [facility] RBC 5.05 4.60 - 6.20 Mil/ul [facility] MCHC 35.2(H) 30.0 - 35.0 g/dL [facility] NEUTROPHIL ABSOLUTE 2.7 2.0 - 8.0 K/ul [facility] NEUTROPHILS 44.5 42.2 - 75.2 % [facility] BASOPHILS ABSOLUTE 0.1 0.0 - 0.2 K/ul [facility] MCV 86.7 84.0 - 103.[address] [facility] EOSINOPHILS 4.0 0.0 - 7.0 % [facility] PLATELETS 189 140 - 440 K/ul [facility] Blood specimen (specimen) 01/26/2008 2:27 PM SENIOR SUPPORT ANALYST 01/26/2008 2:44 PM SENIOR SUPPORT ANALYST us Miguel Hayden MD HEMATOLOGY ORDERABLES Final Re sult INTERFACE SYSTEM Refer to clinic/hospital department [facility] CLIA# [id number] [address] [place] [address], [place] [address] documented in this encounter Visit Diagnoses Not on filedocumented in this encounter Additional Health Concerns Infection Onset Date Last Indicated Resolved Time R/O COVID-19 01/26/2020 01/26/2020 01/28/2020 1:46 AM SENIOR SUPPORT ANALYST documented as of this encounter Care Teams Coating Mixer Tender Relationship Specialty Start Date End Date Yesenia Maria DO PCP - General Family Practice 04/18/20 07/14/20 documented as of this encounter
--- OUTSIDE RECORDS SUMMARY | 2024-09-26 10:33 | XMS_ITS | Encounter Summary ---
Author Organization [facility] Address [address] [place] [address] Care Team Providers Care Transportation Dispatch Manager Name Role Phone Yesenia Maria DO Primary Care Provider [phone] Encounter Details Date Type Department Care Team (Late st Contact Info) Description 04/07/[address] [facility] Pain Management- [address] [place] [phone] Ajay Rodriguez MD NO ADDRESS ON FILE Social History Tobacco Use Types Packs/Day Years Used Date Smoking Tobacco: Never Assessed Sex and Gender Information Value Date Recorded Sex Assigned at Not on file Legal 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 SOCK LINER Gender Identity Not on file Sexual Orientation Not on file documented as of this encounter Plan of Treatment Not on file documented as of this encounter Visit Diagnoses Not on filedocumented in this encounter Additional Health Concerns Infection Onset Date Last Indicated Resolved Time R/O COVID-19 01/26/2020 01/26/2020 01/28/2020 1:46 AM SOCK LINER documented as of this encounter Care Teams Transportation Dispatch Manager Relationship Specialty Start Date End Date Yesenia Maria DO PCP - General Family Practice 04/18/20 07/14/20 documented as of this encounter
--- OUTSIDE RECORDS SUMMARY | 2024-09-26 10:33 | XMS_ITS | Encounter Summary ---
Author Organization [facility] Address [address] [place] [address] Care Team Providers Care Hi Teacher Name Role Phone Yesenia Maria DO Primary Care Provider [phone] Encounter Details Date Type Department Care Team (Latest Contact Info) Description 05/10/2009 Outpatient Historical [facility] [address] [place] [address] Ajay Bustamante DO [address] [place] [address] Unspecified Ankle and Foot Joint Derangement (Primary Dx) Social History Tobacco Use Types Packs/Day Years Used Date Smoking Tobacco: Former Cigarettes Q uit: 12/14/2007 Comments:may smoke occassion ally Alcohol Use Standard Drinks/Week Comments No 0 (1 standard drink = 0.6 oz pur e alcohol) Sex and Gender Information Value Date Recorded Sex Assigned at Not on file Legal 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 MODELING INSTRUCTOR Gender Identity Not on file Sexual Orientation Not on file documented as of this encounter Plan of Treatment Not on file documented as of this encounter Visit Diagnoses Diagnosis Unspecified ankle and foot joint derangement- Primary documented in this encounter Additional Health Concerns Infection Onset Date Last Indicated Resolved Time R/O COVID-19 01/26/2020 01/26/2020 01/28/2020 1:46 AM MODELING INSTRUCTOR documented as of this encounter Care Teams Hi Teacher Relationship Specialty Start Date End Date Yesenia Maria DO PCP - General Family Practice 04/18/20 07/14/20 documented as of this encounter
--- OUTSIDE RECORDS SUMMARY | 2024-09-26 10:33 | XMS_ITS | Encounter Summary ---
Author Organization [facility] Address [address] [facility] Attn: Epic Prelude ADT [place]MA [place] [address] Care Team Providers Care Foreign Policy Officer Name Role Phone Yesenia Maria DO Primary Care Provider Encounter Details Date Type Department Care Team (Late st Contact Info) Description 02/06/2008 Outpatient Historical Jimmy Feliciano MD NO ADDRESS ON FILE Social History Tobacco Use Types Packs/Day Years Used Date Smoking Tobacco: Never Assessed Sex and Gender Information Value Date Recorded Sex Assigned at Not on file Legal 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 FORESTRY BIOLOGY SPECIALIST Gender Identity Not on file Sexual Orientation Not on file documented as of this encounter Plan of Treatment Not on file documented as of this encounter Procedures Procedure Name Priority Date/Time Associated Diagnosis Comments HIV DETECTION W/REFLX CONFIRMATION Routine 02/06/2008 11:43 AM FORESTRY BIOLOGY SPECIALIST HEPATITIS B SURFACE ANTIGEN Routine 02/06/2008 11:43 AM FORESTRY BIOLOGY SPECIALIST HEPATITIS C ANTIBODY Routine 02/06/2008 11:43 AM FORESTRY BIOLOGY SPECIALIST documented in this encounter Results * HEPATITIS B SURFACE ANTIGEN (02/06/2008 11:43 AM FORESTRY BIOLOGY SPECIALIST) HEPATITIS B SURFACE AG Non-Reacti ve Non-Reacti ve [facility] Blood specimen (specimen) 02/06/2008 11:43 AM FORESTRY BIOLOGY SPECIALIST 02/06/2008 11:43 AM FORESTRY BIOLOGY SPECIALIST us Jimmy Feliciano MD CHEMISTRY ORDERABLES Final Res ult Performing Organization Address [facility] Phone Number INTERFACE SYSTEM Refer to clinic/hospital department [facility] CLIA# [id number] [address] [place] [address] * HEPATITIS C ANTIBODY (02/06/2008 11:43 AM FORESTRY BIOLOGY SPECIALIST) HEPATITIS C AB Non-React ghulam Non-React ghulam [facility] Comment: ansiHCV antibody testing is performed by enhanced chemiluminescence immunoassay methodology. The CDC recommends that positive HCV antibody tests be confirmed with either RIBA (recombinant immunoblot assay) or PCR testing. The same specimen can be used for RIBA testing and will be held for 7 days. Please contact the Chemistry laboratory if RIBA testing is desired. Blood specimen (specimen) 02/06/2008 11:43 AM FORESTRY BIOLOGY SPECIALIST 02/06/2008 11:43 AM FORESTRY BIOLOGY SPECIALIST Jimmy Feliciano MD CHEMISTRY ORDERABLES Final Res ult Performing Organization Address [facility] Phone Number INTERFACE SYSTEM Refer to clinic/[facility] CLIA# [id number] [address] [place] [address] * HIV ANTIBODY W/REFLX CONFIRMATION (02/06/2008 11:43 AM FORESTRY BIOLOGY SPECIALIST) HIV-1 AND 2 ABS Negative Negative [facility] Comment: Interpretation for HIV Results: Negative result: Negative for antibodies to HIV-1 and HIV-2 by EIA. Reactive result: Repeatedly Reactive for antibodies to HIV-1 and/or HIV-2 by EIA. Due to possible non-specific reactions from other causes, this specimen has been sent for confirmation by Western Blot. Blood specimen (specimen) 02/06/2008 11:43 AM FORESTRY BIOLOGY SPECIALIST 02/06/2008 11:43 AM FORESTRY BIOLOGY SPECIALIST us Jimmy Feliciano MD CHEMISTRY ORDERABLES Final Res ult Performing Organization Address [facility] Phone Number INTERFACE SYSTEM Refer to clinic/hospital department [facility] CLIA# [id number] [address] [place] [address] documented in this encounter Visit Diagnoses Not on filedocumented in this encounter Additional Health Concerns Infection Onset Date Last Indicated Resolved Time R/O COVID-19 01/26/2020 01/26/2020 01/28/2020 1:4 6 AM FORESTRY BIOLOGY SPECIALIST documented as of this encounter Care Teams Foreign Policy Officer Relationship Specialty Start Date End Date Yesenia Maria DO PCP - General Family Practice 04/18/20 07/14/20 documented as of this encounter
--- OUTSIDE RECORDS SUMMARY | 2024-09-26 10:33 | XMS_ITS | Encounter Summary ---
Author Organization [facility] Address [address] [place] [address] Care Team Providers Care Hvac/R Service Technician Name Role Phone Yesenia Maria DO Primary Care Provider [phone] Encounter Details Date Type Department Care Team (Late st Contact Info) Description 09/22/2007 Outpatient Historical [facility] [address] [place] [address] Miguel Hayden MD [address] [phone] Social History Tobacco Use Types Packs/Day Years Used Date Smoking Tobacco: Never Assessed Sex and Gender Information Value Date Recorded Sex Assigned at Not on file Legal 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 AIRCRAFT NAVIGATOR Gender Identity Not on file Sexual Orientation Not on file documented as of this encounter Plan of Treatment Not on file documented as of this encounter Visit Diagnoses Not on filedocumented in this encounter Additional Health Concerns Infection Onset Date Last Indicated Resolved Time R/O COVID-19 01/26/2020 01/26/2020 01/28/2020 1:46 AM AIRCRAFT NAVIGATOR documented as of this encounter Care Teams Hvac/R Service Technician Relationship Specialty Start Date End Date Yesenia Maria DO PCP - General Family Practice 04/18/20 07/14/20 documented as of this encounter
--- OUTSIDE RECORDS SUMMARY | 2024-09-26 10:33 | XMS_ITS | Encounter Summary ---
Author Organization [facility] Address [address] [place] [address] Care Team Providers Care Ornamental Machine Operator Name Role Phone Yesenia Maria DO Primary Care Provider Encounter Details Date Type Department Care Team (Late st Contact Info) Description 02/21/2007 Inpatient Historical [facility] [address] [place] [phone] Jacqueline Thakkar MD [address] [phone] Social History Tobacco Use Types Packs/Day Years Used Date Smoking Tobacco: Never Assessed Sex and Gender Information Value Date Recorded Sex Assigned at Not on file Legal 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 DIRECTOR OF SPORTS MEDICINE Gender Identity Not on file Sexual Orientation Not on file documented as of this encounter Plan of Treatment Not on file documented as of this encounter Visit Diagnoses Not on filedocumented in this encounter Additional Health Concerns Infection Onset Date Last Indicated Resolved Time R/O COVID-19 01/26/2020 01/26/2020 01/28/2020 1:46 AM DIRECTOR OF SPORTS MEDICINE documented as of this encounter Care Teams Ornamental Machine Operator Relationship Specialty Start Date End Date Yesenia Maria DO PCP - General Family Practice 04/18/20 07/14/20 documented as of this encounter
--- OUTSIDE RECORDS SUMMARY | 2024-09-26 10:33 | XMS_ITS | Encounter Summary ---
Author Organization [facility] Address [address] [place] [address] Care Team Providers Care Sports Trainer Name Role Phone Yesenia Maria DO Primary Care Provider [phone] Encounter Details Date Type Department Care Team (Late st Contact Info) Description 03/18/2007 Outpatient [facility] [address] [place] [phone] Ajay Rodriguez MD NO ADDRESS ON FILE Social History Tobacco Use Types Packs/Day Years Used Date Smoking Tobacco: Never Assessed Sex and Gender Information Value Date Recorded Sex Assigned at Not on file Legal 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 BALL ASSEMBLER Gender Identity Not on file Sexual Orientation Not on file documented as of this encounter Plan of Treatment Not on file documented as of this encounter Visit Diagnoses Not on filedocumented in this encounter Additional Health Concerns Infection Onset Date Last Indicated Resolved Time R/O COVID-19 01/26/2020 01/26/2020 01/28/2020 1:46 AM BALL ASSEMBLER documented as of this encounter Care Teams Sports Trainer Relationship Specialty Start Date End Date Yesenia Maria DO PCP - General Family Practice 04/18/20 07/14/20 documented as of this encounter
--- OUTSIDE RECORDS SUMMARY | 2024-09-26 10:33 | XMS_ITS | Encounter Summary ---
Author Organization [facility] Address [address] [place] [address] Care Team Providers Care Senior Animal Trainer Name Role Phone Yesenia Maria DO Primary Care Provider [phone] Encounter Details Date Type Department Care Team (Late st Contact Info) Description 06/09/2007 Outpatient Historical [facility] Pain Management- [address] [place] [phone] Ajay Rodriguez MD NO ADDRESS ON FILE Social History Tobacco Use Types Packs/Day Years Used Date Smoking Tobacco: Never Assessed Sex and Gender Information Value Date Recorded Sex Assigned at Not on file Legal 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 SENIOR C DEVELOPER Gender Identity Not on file Sexual Orientation Not on file documented as of this encounter Plan of Treatment Not on file documented as of this encounter Visit Diagnoses Not on filedocumented in this encounter Additional Health Concerns Infection Onset Date Last Indicated Resolved Time R/O COVID-19 01/26/2020 01/26/2020 01/28/2020 1:46 AM SENIOR C DEVELOPER documented as of this encounter Care Teams Senior Animal Trainer Relationship Specialty Start Date End Date Yesenia Maria DO PCP - General Family Practice 04/18/20 07/14/20 documented as of this encounter
--- OUTSIDE RECORDS SUMMARY | 2024-09-26 10:33 | XMS_ITS | Encounter Summary ---
Author Organization [facility] Address [address] [place] [address] Care Team Providers Care Greenhouse Or Nursery Transplanter Name Role Phone MariaYesenia dawson Primary Care Provider [phone] Encounter Details Date Type Department Care Team (Latest Contact Info) Description 01/25/2009 Outpatient Historical [facility] [address] [place] [address] Ajay Bustamante, DO [address] [place] [address] Pain in Soft Tissues of Limb (Primary Dx); Stiffness of Joint, not Elsewhere Classified, Ankle and Foot; Other Postprocedural Status; Pain in Joint, Ankle and Foot; Other Physical Therapy Social History Tobacco Use Types Packs/Day Years Used Date Smoking Tobacco: Former Cigarettes Q uit: 12/14/2007 Comments:may smoke occassion ally Alcohol Use Standard Drinks/Week Comments No 0 (1 standard drink = 0.6 oz pur e alcohol) Sex and Gender Information Value Date Recorded Sex Assigned at Not on file Legal 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 TREAD TUBER MACHINE OPERATOR Gender Identity Not on file Sexual Orientation Not on file documented as of this encounter Plan of Treatment Not on file documented as of this encounter Visit Diagnoses Diagnosis Pain in limb- Primary Stiffness of joint, not elsewhere classified, ankle and foot Other postprocedural status(V45.89) Other postprocedural status Pain in joint, ankle and foot Other physical therapy documented in this encounter Additional Health Concerns Infection Onset Date Last Indicated Resolved Time R/O COVID-19 01/26/2020 01/26/2020 01/28/2020 1:46 AM TREAD TUBER MACHINE OPERATOR documented as of this encounter Care Teams Greenhouse Or Nursery Transplanter Relationship Specialty Start Date End Date Yesenia Maria DO PCP - General Family Practice 04/18/20 07/14/20 documented as of this encounter
--- OUTSIDE RECORDS SUMMARY | 2024-09-26 10:33 | XMS_ITS | Encounter Summary ---
Author Organization [facility] Address [address] [place] [address] Care Team Providers Care Manager Mail Name Role Phone Yesenia Maria DO Primary Care Provider [phone] Encounter Details Date Type Department Care Team (Late st Contact Info) Description 03/09/2007 Outpatient Historical [facility] Pain Management Procedures [address] [place] [phone] Ajay Rodriguez MD NO ADDRESS ON FILE Social History Tobacco Use Types Packs/Day Years Used Date Smoking Tobacco: Never Assessed Sex and Gender Information Value Date Recorded Sex Assigned at Not on file Legal 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 STARCH DUMPER Gender Identity Not on file Sexual Orientation Not on file documented as of this encounter Plan of Treatment Not on file documented as of this encounter Visit Diagnoses Not on filedocumented in this encounter Additional Health Concerns Infection Onset Date Last Indicated Resolved Time R/O COVID-19 01/26/2020 01/26/2020 01/28/2020 1:46 AM STARCH DUMPER documented as of this encounter Care Teams Manager Mail Relationship Specialty Start Date End Date Yesenia Maria DO PCP - General Family Practice 04/18/20 07/14/20 documented as of this encounter
--- OUTSIDE RECORDS SUMMARY | 2024-09-26 10:33 | XMS_ITS | Encounter Summary ---
Author Organization [facility] Address [address] [place] [address] Care Team Providers Care Crematorium Operator Name Role Phone Yesenia Maria DO Primary Care Provider [phone] Encounter Details Date Type Department Care Team (Latest Contact Info) Description 12/19/2008 Outpatient Historical [facility] [address] [place] [address] Conversion, History NO ADDRESS ON FILE Unspecified General Medical Examination (Primary Dx) Social History Tobacco Use Types Packs/Day Years Used Date Smoking Tobacco: Former Cigarettes Q uit: 12/14/2007 Comments:may smoke occassion ally Alcohol Use Standard Drinks/Week Comments No 0 (1 standard drink = 0.6 oz pur e alcohol) Sex and Gender Information Value Date Recorded Sex Assigned at Not on file Legal 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 SUBWAY CAR REPAIRER Gender Identity Not on file Sexual Orientation Not on file documented as of this encounter Plan of Treatment Not on file documented as of this encounter Visit Diagnoses Diagnosis Unspecified general medical examination- Primary documented in this encounter Additional Health Concerns Infection Onset Date Last Indicated Resolved Time R/O COVID-19 01/26/2020 01/26/2020 01/28/2020 1:46 AM SUBWAY CAR REPAIRER documented as of this encounter Care Teams Crematorium Operator Relationship Specialty Start Date End Date Yesenia Maria DO PCP - General Family Practice 04/18/20 07/14/20 documented as of this encounter
--- OUTSIDE RECORDS SUMMARY | 2024-09-26 10:33 | XMS_ITS | Encounter Summary ---
Author Organization [facility] Address [address] [place] [address] Care Team Providers Care Tool Checker Name Role Phone Yesenia Maria DO Primary Care Provider [phone] Encounter Details Date Type Department Care Team (Late st Contact Info) Description 05/26/2007 Outpatient Historical [facility] Pain Management- [address] [place] [phone] Ajay Rodriguez MD NO ADDRESS ON FILE Social History Tobacco Use Types Packs/Day Years Used Date Smoking Tobacco: Never Assessed Sex and Gender Information Value Date Recorded Sex Assigned at Not on file Legal 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 SENIOR LINUX SYSTEMS ADMINISTRATOR Gender Identity Not on file Sexual Orientation Not on file documented as of this encounter Plan of Treatment Not on file documented as of this encounter Visit Diagnoses Not on filedocumented in this encounter Additional Health Concerns Infection Onset Date Last Indicated Resolved Time R/O COVID-19 01/26/2020 01/26/2020 01/28/2020 1:46 AM SENIOR LINUX SYSTEMS ADMINISTRATOR documented as of this encounter Care Teams Tool Checker Relationship Specialty Start Date End Date Yesenia Maria DO PCP - General Family Practice 04/18/20 07/14/20 documented as of this encounter
--- OUTSIDE RECORDS SUMMARY | 2024-09-26 10:33 | XMS_ITS | Encounter Summary ---
Author Organization [facility] Address [address] [place] [address] Care Team Providers Care Upholstery Department Supervisor Name Role Phone Yesenia Maria DO Primary Care Provider [phone] Encounter Details Date Type Department Care Team (Latest Contact Info) Description 11/28/2007 Outpatient Historical [facility] Procedures [address] [place] [phone] Anibal Smyth Lumbosacral Spondylosis without Myelopathy; Degeneration of Lumbar or Lumbosacral Intervertebral Disc; Unspecified Essential Hypertension; Unspecified Asthma; Unspecified Arthropathy, Site Unspecified; Personal History of Allergy to Analgesic Agent Social History Tobacco Use Types Packs/Day Years Used Date Smoking Tobacco: Never Assessed Sex and Gender Information Value Date Recorded Sex Assigned at Not on file Legal 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 THORACIC MEDICINE PHYSICIAN Gender Identity Not on file Sexual Orientation Not on file documented as of this encounter Plan of Treatment Not on file documented as of this encounter Procedures Procedure Name Priority Date/Time Associated Diagnosis Comments CT LUMBAR SPINE W CONTRAST Routine 11/29/2007 11:17 AM CDT XR DISKOGRAM LUMBAR SPINE Routine 11/29/2007 9:49 AM CDT documented in this encounter Results * CT LUMBAR SPINE W CONTRAST (11/29/2007 11:17 AM CDT) Anatomical Region Laterality Modality Spine Other 11/29/2007 11:1 7 AM CDT Narrative 11/29/2007 2:52 PM CDT Axial images were obtained through the lumbar spine. These images show contrast in the disc spaces from L3-L4 to L5-S1 following the discogram at each level. Alignment is within normal limits and no definite fracture is seen. T12-L1 and L1-L2: Unremarkable. L2-L3: Tiny disc bulge. L3-L4: Contrast is present normally and centrally within the disc. No significant abnormality is seen. L4-L5: Contrast is present within the disc and around the margins compatible with an annular tear. L5-S1: There is moderate disc height loss and findings that are compatible with a left paracentral disc protrusion. This comes in close proximity to the traversing left S1 nerve root. Impression: Left paracentral disc protrusion at L5-S1 and annular tear at L4-L5. - Dictated By: Heladio Hamilton M.D. Electronically Signed By: Heladio Hamilton M.D. Date Signed: 11/29/07 JAW Procedure Note Heladio Hamilton W - 11/29/2007 Axial images were obtained through the lumbar spine. These images showcontrast in the disc spaces from L3-L4 to L5-S1 following the discogram at each level. Alignment is withinnormal limits and no definite fracture is seen. T12-L1 and L1-L2: Unremarkable. L2-L3: Tiny disc bulge. L3-L4: Contrast is present normally and centrally within the disc. Nosignificant abnormality is seen. L4-L5: Contrast is present within the disc and around the marginscompatible with an annular tear. L5-S1: There is moderate disc height loss and findings that are compatiblewith a left paracentral disc protrusion. This comes in close proximity to the traversing left S1 nerveroot. Impression: Left paracentral disc protrusion at L5-S1 and annular tear atL4-L5. - Dictated By: Heladio Hamilton M.D. Electronically Signed By: Heladio Hamilton M.D. Date Signed: 11/29/[address] ORDERABLES Final Result * XR DISKOGRAM LUMBAR SPINE (11/29/2007 9:49 AM CDT) Anatomical Region Laterality Modality Spine Other 11/29/2007 9:49 AM CDT Narrative 11/29/2007 9:49 AM CDT Finalized by interface [employer] utility. No report expected. Procedure Note 04/16/2008 Finalized by interface [employer] utility. No report expected. Anibal Smyth DIAGNOSTIC IMAGING ORDERABLES Fi nal Result documented in this encounter Visit Diagnoses Diagnosis Lumbosacral spondylosis without myelopathy Degeneration of lumbar or lumbosacral intervertebral disc Unspecified essential hypertension Unspecified asthma(493.90) Unspecified asthma Arthropathy, unspecified, site unspecified Personal history of allergy to analgesic agent documented in this encounter Additional Health Concerns Infection Onset Date Last Indicated Resolved Time R/O COVID-19 01/26/2020 01/26/2020 01/28/2020 1:46 AM THORACIC MEDICINE PHYSICIAN documented as of this encounter Care Teams Upholstery Department Supervisor Relationship Specialty Start Date End Date Yesenia Maria DO PCP - General Family Practice 04/18/20 07/14/20 documented as of this encounter
--- OUTSIDE RECORDS SUMMARY | 2024-09-26 10:33 | XMS_ITS | Encounter Summary ---
Author Organization [facility] Address [address] [place] [address] Care Team Providers Care Manager Home Name Role Phone Yesenia Maria DO Primary Care Provider [phone] Encounter Details Date Type Department Care Team (Latest Contact Info) Description 09/14/2007 Outpatient [facility] [address] [place] [address] [facility] [address] [place] [address] Miguel Hayden MD [address] [facility] [address] [place] [address] Obesity, Unspecified; Degeneration of Lumbar or Lumbosacral Intervertebral Disc; Displacement of Lumbar Intervertebral Disc without Myelopathy; Unspecified Essential Hypertension; Unspecified Asthma; Unspecified Arthropathy, Site Unspecified Social History Tobacco Use Types Packs/Day Years Used Date Smoking Tobacco: Never Assessed Sex and Gender Information Value Date Recorded Sex Assigned at Not on file Legal 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 WHITE METAL CORROSION PROOFER Gender Identity Not on file Sexual Orientation Not on file documented as of this encounter Plan of Treatment Not on file documented as of this encounter Visit Diagnoses Diagnosis Obesity, unspecified Degeneration of lumbar or lumbosacral intervertebral disc Displacement of lumbar intervertebral disc without myelopathy Unspecified essential hypertension Unspecified asthma(493.90) Unspecified asthma Arthropathy, unspecified, site unspecified documented in this encounter Additional Health Concerns Infection Onset Date Last Indicated Resolved Time R/O COVID-19 01/26/2020 01/26/2020 01/28/2020 1:46 AM WHITE METAL CORROSION PROOFER documented as of this encounter Care Teams Manager Home Relationship Specialty Start Date End Date Yesenia Maria DO PCP - General Family Practice 04/18/20 07/14/20 documented as of this encounter
[2024-09-26 10:50] VITALS: BP 115/75; PULSE 87; O2SAT 97
== END 2024-09-26 10:15 | disposition home or self-care (01) ==
PROVIDERS: Emergency Provider Family Medicine
DX: M17.12 Unilateral primary osteoarthritis, left knee (principal); I10 Essential (primary) hypertension; F17.210 Nicotine dependence, cigarettes, uncomplicated; Z79.02 Long term (current) use of antithrombotics/antiplatelets; Z79.899 Other long term (current) drug therapy; Z79.85 Long-term (current) use of injectable non-insulin antidiabetic drugs; Z79.4 Long term (current) use of insulin; Z88.5 Allergy status to narcotic agent; E11.9 Type 2 diabetes mellitus without complications
CPT/HCPCS: 73562; 99283

== ENCOUNTER 2024-10-23 08:43 | Outpatient (CLI) | payer MEDICARE, SELFPAY ==
--- NOTE | 2024-10-23 09:15 | USCV_ITS ---
Radu Shetty Age: 59 Gender: M : 1965 Exam Date: 10/23/2024 09:14 Ordering Phys: Kristen Shetty NP Technologist: EVA Exam Location: [facility] – [place] Indication: SHF BP: 124 / 72 HR: 77 Rhythm: Sinus Technical Quality: Adequate MEASUREMENTS (Male / Female) Normal Values 2D ECHO LV Diastolic Diameter PLAX 6.0 cm 4.2 - 5.9 / 3.9 - 5.3 cm IVS Diastolic Thickness 1.4 cm 0.6 - 1.0 / 0.6 - 0.9 cm IVS Systolic Thickness 2.3 cm LVPW Diastolic Thickness 2.0 cm 0.6 - 1.0 / 0.6 - 0.9 cm LVPW Systolic Thickness 1.8 cm LVOT Diameter 2.1 cm LV Ejection Fraction 2D Teich 45.1 % LV Ejection Fraction MOD 4C 40.4 % LV Ejection Fraction MOD 2C 44.2 % LV Ejection Fraction 2C AL 46.2 % LA Diameter 3.9 cm RA Systolic Volume 4C AL 49.9 ml RA Systolic Volume 4C MOD 47.5 ml LA Sys Volume AL 45.4 cm cubed LA Sys Volume Index AL 19.7 cm cubed/m squared Aorta at Sinotubular Diameter 2.9 cm IVC Diameter 2.5 cm M-MODE LA Ao Ratio MM 1.1 AV Cusp Separation MM 1.4 cm DOPPLER AV Peak Velocity 120.0 cm/s LVOT Peak Velocity 61.0 cm/s AV Area Cont Eq vti 1.6 cm squared AV Area Cont Eq pk 1.7 cm squared MV Peak Velocity 85.0 cm/s MV Area PHT 3.8 cm squared Mitral E to A Ratio 0.6 TR Peak Velocity 107.0 cm/s TR Peak Gradient 4.6 mmHg TV Peak E Velocity 69.0 cm/s PV Peak Velocity 75.0 cm/s FINDINGS Left Ventricle Mildly dilated LV cavity with diminished ejection fraction of 44%. Diffuse hypokinesis of the left ventricle, more so of the septum and inferior wall.Grade I/IV diastolic dysfunction (abnormal relaxation filling pattern), normal to mildly elevated filling pressures. Right Ventricle The right ventricle is normal in size and function. Right Atrium The right atrium is normal in size. Left Atrium The left atrium is normal in size. Mitral Valve Moderate mitral annular calcification. Aortic Valve Thickened aortic valve. Tricuspid Valve No gross abnormalities noted Pulmonic Valve Pulmonic valve not well visualized. Pericardium Normal pericardium without effusion. Aorta Normal ascending aorta dimension. IVC Normal IVC dimension with <50% respiratory change of the inferior vena cava. CONCLUSIONS Mildly dilated LV cavity with diminished ejection fraction of 44%. Diffuse hypokinesis of the left ventricle, more so of the septum and inferior wall.Grade I/IV diastolic dysfunction (abnormal relaxation filling pattern), normal to mildly elevated filling pressures. Moderate mitral annular calcification. Thickened aortic valve. Compared to the study from 04/27/2024, there is improvement in the LV ejection fraction from 30% to 44% Dr Vielka Sena MD FAC (Electronically Signed) Final Date: 25 October 2024 15:36 S
== END 2024-10-23 08:44 | disposition home or self-care (01) ==
LOC: RAD 08:45
PROVIDERS: Visit Provider Nurse Practitioner Family
DX: I50.9 Heart failure, unspecified (principal); I50.30 Unspecified diastolic (congestive) heart failure; I51.7 Cardiomegaly; I34.81 Nonrheumatic mitral (valve) annulus calcification; I35.9 Nonrheumatic aortic valve disorder, unspecified
CPT/HCPCS: 93306

== ENCOUNTER → 2025-01-15 13:16 | Outpatient (BNVA) | payer MEDICARE, SELFPAY | PROVIDERS: Visit Provider Nurse Practitioner Family | DX: I25.5 Ischemic cardiomyopathy (principal); F17.200 Nicotine dependence, unspecified, uncomplicated; I10 Essential (primary) hypertension; E78.5 Hyperlipidemia, unspecified; F41.9 Anxiety disorder, unspecified; E11.9 Type 2 diabetes mellitus without complications; F17.210 Nicotine dependence, cigarettes, uncomplicated; Z79.4 Long term (current) use of insulin; Z79.85 Long-term (current) use of injectable non-insulin antidiabetic drugs | CPT/HCPCS: 99214 ==

== ENCOUNTER 2025-01-24 06:26 | Outpatient (CLI) | payer MEDICARE, SELFPAY ==
--- NOTE | 2025-01-24 06:30 | USCV_ITS ---
Radu Shetty Age: 60 Gender: M : 1965 Exam Date: 01/24/2025 06:55 Ordering Phys: Chayo Fu Technologist: Exam Location: [facility] [place] Indication: ef BP: 110 / 70 HR: Rhythm: Sinus Technical Quality: Adequate MEASUREMENTS (Male / Female) Normal Values 2D ECHO LV Diastolic Diameter PLAX 5.6 cm 4.2 - 5.9 / 3.9 - 5.3 cm IVS Diastolic Thickness 1.3 cm 0.6 - 1.0 / 0.6 - 0.9 cm IVS Systolic Thickness 2.4 cm LVPW Diastolic Thickness 1.4 cm 0.6 - 1.0 / 0.6 - 0.9 cm LVPW Systolic Thickness 1.6 cm LVOT Diameter 2.1 cm LV Ejection Fraction 2D Teich 49.6 % LV Ejection Fraction MOD 4C 48.9 % LV Ejection Fraction MOD 2C 45.4 % LV Ejection Fraction 2C AL 45.8 % LA Diameter 4.1 cm RA Systolic Volume 4C AL 56.5 ml RA Systolic Volume 4C MOD 53.2 ml Aorta at Sinotubular Diameter 2.9 cm FINDINGS Left Ventricle Right Ventricle Right Atrium Left Atrium IA Septum Mitral Valve Aortic Valve Tricuspid Valve Pulmonic Valve Pericardium Aorta IVC CONCLUSIONS Limited echocardiogram performed to assess LV systolic function LV systolic function is mildly reduced with EF of 40-45%. Mild global hypokinesis. No significant changes seen compared to prior echocardiogram from 10/2024 Brady Rodgers MD (Electronically Signed) Final Date: 28 January 2025 10:27 S
== END 2025-01-24 06:27 | disposition home or self-care (01) ==
LOC: RAD 06:28
PROVIDERS: PCP Nurse Practitioner Family; Visit Provider Nurse Practitioner Family
DX: I25.5 Ischemic cardiomyopathy (principal); I50.9 Heart failure, unspecified
CPT/HCPCS: 93308

== ENCOUNTER 2025-02-18 20:01 | Emergency (ER) | payer MEDICARE, SELFPAY ==
--- OUTSIDE RECORDS SUMMARY | 2025-02-18 20:07 | XMS_ITS | Encounter Summary ---
Author Organization [facility] Address [address] [place] [address] Care Team Providers Care Public Health Informatician Name Role Phone Yesenia Maria DO Primary Care Provider [phone] Encounter Details Date Type Department Care Team (Latest Contact Info) Description 02/15/2006 Outpatient Historical [facility] Ear, Nose and Throat[address] [place] [address] Nilda Hodges, SOFT SUGAR OPERATOR HEAD [address] [facility] [place] [phone] Hypertrph Nasal Turbinat (Primary Dx); Deviated Nasal Septum; Allergic Rhinitis, Cause Unspecified; Unspecified Sinusitis (Chronic) Social History Tobacco Use Types Packs/Day Years Used Date Smoking Tobacco: Never Assessed Sex and Gender Information Value Date Recorded Sex Assigned at Not on file Legal 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 WAFER FABRICATOR Gender Identity Not on file Sexual Orientation [...] R/O COVID-19 01/26/2020 01/26/2020 01/28/2020 1:46 AM WAFER FABRICATOR documented as of this encounter Care Teams Public Health Informatician Relationship Specialty Start Date End Date Yesenia Maria DO PCP - General Family Practice 04/18/20 07/14/20 documented as of this encounter
--- OUTSIDE RECORDS SUMMARY | 2025-02-18 20:07 | XMS_ITS | Encounter Summary ---
Author Organization [facility] Address [address] [place] [address] Care Team Providers Care Mail Order Biller Name Role Phone Yesenia Maria Primary Care Provider [phone] Reason for Referral * Outpatient Services (Routine) - Closed Specialty Diagnoses / Procedures Referred By Sean t Referred To Contact Diagnoses Intervertebral disc disorder with radiculopathy of lumbosacral region Postlaminectomy syndrome, lumbar region Procedures MRI LUMBAR W WO CONTRAST Lorin Stanton FNP [address] [place] [address] Phone: tel: fax: [facility] Pre-Registration [place] CALL TO MAKE APPOINTMENT ONLY [address] [place] [address] Phone: tel: fax: Referral ID Status Reason Start Date Expiration Date V isits Requested Visits Authorized [id number] Closed F MC TO SCHEDULE (SGF) 01/25/2017 02/25/2018 1 1 ER COUNTER Encounter Details Date Type Department Care Team (Latest Contact Info) Description 01/25/2017 Ancillary Orders [facility] Pre-Registration [place] CALL TO MAKE APPOINTMENT ONLY [address] [place] [address] Lorin Stanton FNP [address] [place] [phone] Intervertebral disc disorder with radiculopathy of lumbosacral [...] on file Legal 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 SKIVER COUNTER Gender Identity Not on file Sexual Orientation Not on file Occupation Industry Job Start Date Job End Date Not on file Not on file Not on file Not on file documented as of this encounter Plan of Treatment Not on file documented as of this encounter Results * MRI LUMBAR W WO CONTRAST (02/15/2017 7:57 AM SKIVER COUNTER) Anatomical Region Laterality Modality Spine Magnetic Resonan ce 02/15/2017 7:58 AM SKIVER COUNTER Impressions 02/15/2017 4:29 PM SKIVER COUNTER IMPRESSION: Please see below. Exam: MRI LUMBAR [...] postoperative lumbar spine as above. Lorin Stanton [facility] MR ORDERABLES Final Resul t documented in [...] R/O COVID-19 01/26/2020 01/26/2020 01/28/2020 1:46 AM SKIVER COUNTER documented as of this encounter Care Teams Mail Order Biller Relationship Specialty Start Date End Date Yesenia Maria DO PCP - General Family Practice 04/18/20 07/14/20 documented as of this encounter
--- OUTSIDE RECORDS SUMMARY | 2025-02-18 20:07 | XMS_ITS | Encounter Summary ---
Author Organization [facility] Address [address] [place] [address] Care Team Providers Care Lamp Wirer Name Role Phone Yesenia Maria DO Primary Care Provider [phone] Encounter Details Date Type Department Care Team (Late st Contact Info) Description 07/04/2009 Outpatient Historical [facility] [address] [place] [address] Jadyn Hair, PAGopal [address] [place] [phone] Stiffness of Joint, not Elsewhere Classified, Ankle and Foot (Primary Dx); Muscle Weakness (Generalized); Other Physical Therapy Social History Tobacco Use Types Packs/Day Years Used Date Smoking Tobacco: Former Cigarettes 0 Q uit: 12/14/2007 Comments:may smoke occassion ally Alcohol Use Standard Drinks/Week Comments No 0 (1 standard drink = 0.6 oz pur e alcohol) Sex and Gender Information Value Date Recorded Sex Assigned at Not on file Legal 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 CONCRETE POINTER Gender Identity Not on file Sexual Orientation [...] COVID-19 01/26/2020 01/26/2020 01/28/2020 1:46 AM CONCRETE POINTER documented as of this encounter Care Teams Lamp Wirer Relationship Specialty Start Date End Date Yesenia Maria DO PCP - General Family Practice 04/18/20 07/14/20 documented as of this encounter
--- OUTSIDE RECORDS SUMMARY | 2025-02-18 20:07 | XMS_ITS | Encounter Summary ---
Author Organization [facility] Address [address] [place] [address] Care Team Providers Care Lower In Supervisor Name Role Phone Yesenia Maria DO Primary Care Provider [phone] Encounter Details Date Type Department Care Team (Late st Contact Info) Description 11/16/2009 Emergency [facility] [address] [place] [address] Maverick Grace PA [address] [place] [address] Lumbago (Primary Dx); Other Chronic Pain Social History Tobacco Use Types Packs/Day Years Used Date Smoking Tobacco: Former Cigarettes 0 Q uit: 12/14/2007 Comments:may smoke occassion ally Alcohol Use Standard Drinks/Week Comments No 0 (1 standard drink = 0.6 oz pur e alcohol) Sex and Gender Information Value Date Recorded Sex Assigned at Not on file Legal 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 PLASTIC JIG AND FIXTURE BUILDER Gender Identity Not on file Sexual Orientation Not on file documented as of this encounter Plan of Treatment Not on file documented as of this encounter Visit Diagnoses Diagnosis Lumbago- Primary Other chronic pain documented in this encounter Additional Health Concerns Infection Onset Date Last Indicated Resolved Time R/O COVID-19 01/26/2020 01/26/2020 01/28/2020 1:46 AM PLASTIC JIG AND FIXTURE BUILDER documented as of this encounter Care Teams Lower In Supervisor Relationship Specialty Start Date End Date Yesenia Maria DO PCP - General Family Practice 04/18/20 07/14/20 documented as of this encounter
--- OUTSIDE RECORDS SUMMARY | 2025-02-18 20:07 | XMS_ITS | Encounter Summary ---
Author Organization [facility] Address [address] [place] [address] Care Team Providers Care Public School Teacher Name Role Phone Yesenia Maria DO Primary Care Provider [phone] Encounter Details Date Type Department Care Team (Latest Contact Info) Description 10/07/1999 Outpatient Historical [facility] Medicine [address] [place] [phone] Yuri Richter MD NO ADDRESS ON FILE Backache, unspecified (Primary Dx) Social History Tobacco Use Types Packs/Day Years Used Date Smoking Tobacco: Never Assessed Sex and Gender Information Value Date Recorded Sex Assigned at Not on file Legal 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 BUILDING PRESSURE WASHER Gender Identity Not on file Sexual Orientation Not on file documented as of this encounter Plan of Treatment Not on file documented as of this encounter Visit Diagnoses Diagnosis Backache, unspecified- Primary documented in this encounter Additional Health Concerns Infection Onset Date Last Indicated Resolved Time R/O COVID-19 01/26/2020 01/26/2020 01/28/2020 1:46 AM BUILDING PRESSURE WASHER documented as of this encounter Care Teams Public School Teacher Relationship Specialty Start Date End Date Yesenia Maria DO PCP - General Family Practice 04/18/20 07/14/20 documented as of this encounter
--- OUTSIDE RECORDS SUMMARY | 2025-02-18 20:07 | XMS_ITS | Encounter Summary ---
Author Organization [facility] Address [address] [place] [address] Care Team Providers Care Stage Electrician Name Role Phone Yesenia Maria DO Primary Care Provider [phone] Encounter Details Date Type Department Care Team (Latest Contact Info) Description 03/01/2006 Outpatient Historical [facility] Ear, Nose and Throat- [address] [place] [address] [place] [phone] Steve Eugene MD NO ADDRESS ON FILE Hypertrph Nasal Turbinat (Primary Dx); Deviated Nasal Septum; Unspecified Sinusitis (Chronic) Social History Tobacco Use Types Packs/Day Years Used Date Smoking Tobacco: Never Assessed Sex and Gender Information Value Date Recorded Sex Assigned at Not on file Legal 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 ENTRY TECH Gender Identity Not on file Sexual Orientation [...] R/O COVID-19 01/26/2020 01/26/2020 01/28/2020 1:46 AM ENTRY TECH documented as of this encounter Care Teams Stage Electrician Relationship Specialty Start Date End Date Yesenia Maria DO PCP - General Family Practice 04/18/20 07/14/20 documented as of this encounter
--- OUTSIDE RECORDS SUMMARY | 2025-02-18 20:07 | XMS_ITS | Encounter Summary ---
Author Organization [facility] Address [address] [place] [address] Care Team Providers Care Refrigerator Assembler Name Role Phone Yesenia Maria DO Primary Care Provider [phone] Encounter Details Date Type Department Care Team (Late st Contact Info) Description 06/24/2009 Outpatient Historical [facility] [address] [place] [address] Jadyn Hair, PAGopal [address] [place] [address] Pain in Joint, Shoulder Region (Primary Dx); [...] file Legal 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 CHIEF TRANSFER AND PUMPHOUSE OPERATOR Gender Identity Not on file Sexual [...] COVID-19 01/26/2020 01/26/2020 01/28/2020 1:46 AM CHIEF TRANSFER AND PUMPHOUSE OPERATOR documented as of this encounter Care Teams Refrigerator Assembler Relationship Specialty Start Date End Date Yesenia Maria DO PCP - General Family Practice 04/18/20 07/14/20 documented as of this encounter
--- OUTSIDE RECORDS SUMMARY | 2025-02-18 20:07 | XMS_ITS | Encounter Summary ---
Author Organization [facility] Address [address] [place] [address] Care Team Providers Care Social Media Designer Name Role Phone Yesenia Maria DO Primary Care Provider [phone] Encounter Details Date Type Department Care Team (Latest Contact Info) Description 03/19/2006 Outpatient Historical [facility] [place] [address] [place] [place] [phone] Steve Eugene MD NO ADDRESS ON FILE Chronic Maxillary Sinusitis (Primary Dx) Social History Tobacco Use Types Packs/Day Years Used Date Smoking Tobacco: Never Assessed Sex and Gender Information Value Date Recorded Sex Assigned at Not on file Legal 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 ART EDUCATOR Gender Identity Not on file Sexual Orientation Not on file documented as of this encounter Plan of Treatment Not on file documented as of this encounter Visit Diagnoses Diagnosis Chronic maxillary sinusitis- Primary documented in this encounter Additional Health Concerns Infection Onset Date Last Indicated Resolved Time R/O COVID-19 01/26/2020 01/26/2020 01/28/2020 1:46 AM ART EDUCATOR documented as of this encounter Care Teams Social Media Designer Relationship Specialty Start Date End Date Yesenia Maria DO PCP - General Family Practice 04/18/20 07/14/20 documented as of this encounter
--- OUTSIDE RECORDS SUMMARY | 2025-02-18 20:07 | XMS_ITS | Encounter Summary ---
Author Organization [facility] Address [address] [place] [address] Care Team Providers Care Company Doctor Name Role Phone Yesenia Maria DO Primary Care Provider [phone] Encounter Details Date Type Department Care Team (Latest Contact Info) Description 2006 Outpatient Historical [facility] Medicine [address] [place] [phone] Yuri Richter MD NO ADDRESS ON FILE Vaccine for influenza (Primary Dx) Social History Tobacco Use Types Packs/Day Years Used Date Smoking Tobacco: Never Assessed Sex and Gender Information Value Date Recorded Sex Assigned at Not on file Legal 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 INTEGRATION SOLUTION ARCHITECT Gender Identity Not on file Sexual Orientation Not on file documented as of this encounter Plan of Treatment Not on file documented as of this encounter Visit Diagnoses Diagnosis Vaccine for influenza- Primary Need for prophylactic vaccination and inoculation against influenza documented in this encounter Additional Health Concerns Infection Onset Date Last Indicated Resolved Time R/O COVID-19 01/26/2020 01/26/2020 01/28/2020 1:46 AM INTEGRATION SOLUTION ARCHITECT documented as of this encounter Care Teams Company Doctor Relationship Specialty Start Date End Date Yesenia Maria DO PCP - General Family Practice 04/18/20 07/14/20 documented as of this encounter
--- OUTSIDE RECORDS SUMMARY | 2025-02-18 20:07 | XMS_ITS | Encounter Summary ---
Author Organization [facility] Address [address] [place] [address] Care Team Providers Care Coordinator Hotels Name Role Phone Yesenia Maria DO Primary Care Provider [phone] Encounter Details Date Type Department Care Team (Latest Contact Info) Description 04/12/2006 Outpatient [facility] Ear, Nose and Throat- [address] [place] [address] [place] [phone] Steve Eugene MD NO ADDRESS ON FILE Follow-Up Examination, Following Unspecified Surgery (Primary Dx) Social History Tobacco Use Types Packs/Day Years Used Date Smoking Tobacco: Never Assessed Sex and Gender Information Value Date Recorded Sex Assigned at Not on file Legal 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 COMPOSITION SIDING WORKER Gender Identity Not on file Sexual Orientation Not on file documented as of this encounter Plan of Treatment Not on file documented as of this encounter Visit Diagnoses Diagnosis Follow-up examination, following unspecified surgery- Primary documented in this encounter Additional Health Concerns Infection Onset Date Last Indicated Resolved Time R/O COVID-19 01/26/2020 01/26/2020 01/28/2020 1:46 AM COMPOSITION SIDING WORKER documented as of this encounter Care Teams Coordinator Hotels Relationship Specialty Start Date End Date Yesenia Maria DO PCP - General Family Practice 04/18/20 07/14/20 documented as of this encounter
--- OUTSIDE RECORDS SUMMARY | 2025-02-18 20:07 | XMS_ITS | Encounter Summary ---
Author Organization [facility] Address [address] [place] [address] Care Team Providers Care Tool Engineer Name Role Phone Yesenia Maria DO Primary Care Provider [phone] Encounter Details Date Type Department Care Team (Late st Contact Info) Description 11/18/2009 Emergency [facility] [address] [place] [address] Trent Davis MD NO ADDRESS ON FILE [...] on file Legal 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 HIGH SCHOOL SCIENCE TUTOR Gender Identity Not on file Sexual Orientation Not on file documented as of this encounter Plan of Treatment Not on file documented as of this encounter Visit Diagnoses Diagnosis Lumbago- Primary documented in this encounter Additional Health Concerns Infection Onset Date Last Indicated Resolved Time R/O COVID-19 01/26/2020 01/26/2020 01/28/2020 1:46 AM HIGH SCHOOL SCIENCE TUTOR documented as of this encounter Care Teams Tool Engineer Relationship Specialty Start Date End Date Yesenia Maria DO PCP - General Family Practice 04/18/20 07/14/20 documented as of this encounter
--- OUTSIDE RECORDS SUMMARY | 2025-02-18 20:07 | XMS_ITS | Encounter Summary ---
Author Organization [facility] Address [address] [place] [address] Care Team Providers Care Processing Supervisor Name Role Phone MariaYesenia dawson Primary Care Provider [phone] Encounter Details Date Type Department Care Team (Late st Contact Info) Description 12/19/2012 Ancillary Orders [facility] [place] [address] Ajay Bustamante, DO [address] [place] [address] Shoulder pain (Primary Dx) Social [...] on file Legal 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 VET TECH Gender Identity Not on file Sexual [...] of the glenohumeral joint. Ajay Bustamante D.O. [facility] CDM:didier Procedure Note Ajay Bustamante DO - 12/29/2012 X-RAYS: The x-rays of the left shoulder were reviewed and revealed Grade 3acromion with mild degeneration of the AC joint. Minimal degenerativechanges of the glenohumeral joint. Ajay Bustamante D.O. [facility] CDM:didier Ajay Bustamante DO DIAGNOSTIC IMAGING ORDERABLES Final Result documented in this encounter Visit Diagnoses Diagnosis Shoulder pain- Primary Pain in joint, shoulder region documented in this encounter Additional Health Concerns Infection Onset Date Last Indicated Resolved Time R/O COVID-19 01/26/2020 01/26/2020 01/28/2020 1:46 AM VET TECH documented as of this encounter Care Teams Processing Supervisor Relationship Specialty Start Date End Date Yesenia Maria DO PCP - General Family Practice 04/18/20 07/14/20 documented as of this encounter
--- OUTSIDE RECORDS SUMMARY | 2025-02-18 20:07 | XMS_ITS | Encounter Summary ---
Author Organization [facility] Address [address] [place] [address] Care Team Providers Care Corporate Securities Research Analyst Name Role Phone Yesenia Maria DO Primary Care Provider [phone] Encounter Details Date Type Department Care Team (Latest Contact Info) Description 08/07/2005 Outpatient Historical [facility] Optometry[address] [place] [address] Loyd Bacon, OD [address] [place] [address] Nuclear Sclerosis (Primary Dx) Social History Tobacco Use Types Packs/Day Years Used Date Smoking Tobacco: Never Assessed Sex and Gender Information Value Date Recorded Sex Assigned at Not on file Legal 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 DIRECTOR DIGITAL ANALYTICS Gender Identity Not on file Sexual Orientation Not on file documented as of this encounter Plan of Treatment Not on file documented as of this encounter Visit Diagnoses Diagnosis Nuclear sclerosis- Primary Senile nuclear sclerosis documented in this encounter Additional Health Concerns Infection Onset Date Last Indicated Resolved Time R/O COVID-19 01/26/2020 01/26/2020 01/28/2020 1:46 AM DIRECTOR DIGITAL ANALYTICS documented as of this encounter Care Teams Corporate Securities Research Analyst Relationship Specialty Start Date End Date Yesenia Maria DO PCP - General Family Practice 04/18/20 07/14/20 documented as of this encounter
--- OUTSIDE RECORDS SUMMARY | 2025-02-18 20:07 | XMS_ITS | Encounter Summary ---
Author Organization [facility] Address [address] [place] [address] Care Team Providers Care Administrative Asst Name Role Phone Yesenia Maria DO Primary Care Provider [phone] Encounter Details Date Type Department Care Team (Latest Contact Info) Description 02/08/2006 Outpatient Historical [address] [place] [facility] [place] [phone] Melly Jameson DO NO ADDRESS ON FILE Acute Sinusitis, Unspecified (Primary Dx); Unspecified Otitis Media Social History Tobacco Use Types Packs/Day Years Used Date Smoking Tobacco: Never Assessed Sex and Gender Information Value Date Recorded Sex Assigned at Not on file Legal 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 BUSHING PRESS OPERATOR Gender Identity Not on file Sexual Orientation Not on file documented as of this encounter Plan of Treatment Not on file documented as of this encounter Visit Diagnoses Diagnosis Acute sinusitis, unspecified- Primary Unspecified otitis media documented in this encounter Additional Health Concerns Infection Onset Date Last Indicated Resolved Time R/O COVID-19 01/26/2020 01/26/2020 01/28/2020 1:46 AM BUSHING PRESS OPERATOR documented as of this encounter Care Teams Administrative Asst Relationship Specialty Start Date End Date Yesenia Maria DO PCP - General Family Practice 04/18/20 07/14/20 documented as of this encounter
--- OUTSIDE RECORDS SUMMARY | 2025-02-18 20:07 | XMS_ITS | Encounter Summary ---
Author Organization [facility] Address [address] [place] [address] Care Team Providers Care Medical Investigator Name Role Phone Yesenia Maria DO Primary Care Provider [phone] Encounter Details Date Type Department Care Team (Latest Contact Info) Description 04/05/2006 Outpatient Historical [facility] Ear, Nose and Throat 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 Gender Identity Not on file Sexual Orientation Not on file documented as of this encounter Plan of Treatment Not on file documented as of this encounter Visit Diagnoses Diagnosis Follow-up examination, following unspecified surgery- Primary documented in this encounter Additional Health Concerns Infection Onset Date Last Indicated Resolved Time R/O COVID-19 01/26/2020 01/26/2020 01/28/2020 1:46 AM FRACTIONATING STILL OPERATOR documented as of this encounter Care Teams Medical Investigator Relationship Specialty Start Date End Date Yesenia Maria DO PCP - General Family Practice 04/18/20 07/14/20 documented as of this encounter
--- OUTSIDE RECORDS SUMMARY | 2025-02-18 20:07 | XMS_ITS | Encounter Summary ---
Author Organization [facility] Address [address] [place] [address] Care Team Providers Care Insurance Examiner Name Role Phone Yesenia Maria DO Primary Care Provider [phone] Encounter Details Date Type Department Care Team (Latest Contact Info) Description 10/16/2005 Outpatient Historical [facility] [place] [facility] Medicine [address] [place] [phone] Yuri Richter MD NO ADDRESS ON FILE Pure Hypercholesterolem (Primary Dx); Unspecified Essential Hypertension Social History Tobacco Use Types Packs/Day Years Used Date Smoking Tobacco: Never Assessed Sex and Gender Information Value Date Recorded Sex Assigned at Not on file Legal 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 Gender Identity Not on file Sexual Orientation Not on file documented as of this encounter Plan of Treatment Not on file documented as of this encounter Visit Diagnoses Diagnosis Pure hypercholesterolem- Primary Pure hypercholesterolemia Unspecified essential hypertension documented in this encounter Additional Health Concerns Infection Onset Date Last Indicated Resolved Time R/O COVID-19 01/26/2020 01/26/2020 01/28/2020 1:46 AM FOILING MACHINE ADJUSTER documented as of this encounter Care Teams Insurance Examiner Relationship Specialty Start Date End Date Yesenia Maria DO PCP - General Family Practice 04/18/20 07/14/20 documented as of this encounter
--- OUTSIDE RECORDS SUMMARY | 2025-02-18 20:07 | XMS_ITS | Encounter Summary ---
Author Organization [facility] Address [address] [facility] Attn: Epic Prelude ADT [place] [address] Care Team Providers Care Executive Legal Secretary Name Role Phone Yesenia Maria DO Primary Care Provider [phone] Encounter Details Date Type Department Care Team (Late st Contact Info) Description 02/18/2006 Outpatient Historical Steve Eugene MD NO ADDRESS ON FILE Social History Tobacco Use Types Packs/Day Years Used Date Smoking Tobacco: Never Assessed Sex and Gender Information Value Date Recorded Sex Assigned at Not on file Legal 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 BIOMEDICAL ENGINEERING INTERNSHIP Gender Identity Not on file Sexual Orientation Not on file documented as of this encounter Plan of Treatment Not on file documented as of this encounter Procedures Procedure Name Priority Date/Time Associated Diagnosis Comments RAST FOOD PANEL, ADULT Routine 02/18/2006 1:25 PM BIOMEDICAL ENGINEERING INTERNSHIP ALLERGY PANEL ([facility]) Routine 02/18/2006 1:25 PM BIOMEDICAL ENGINEERING INTERNSHIP documented in this encounter Results * RAST FOOD PANEL, ADULT (02/18/2006 1:25 PM BIOMEDICAL ENGINEERING INTERNSHIP) ALLERGY FOOD PNL See Sep Report INTERFACE SYSTEM 02/18/2006 1:25 PM BIOMEDICAL ENGINEERING INTERNSHIP us Steve Eugene MD CHEMISTRY ORDERABLES Final Re sult INTERFACE SYSTEM Refer to clinic/hospital department * RAST INHALANT PANEL (02/18/2006 1:25 PM BIOMEDICAL ENGINEERING INTERNSHIP) ALLERGY INHALANT PNL & TTL IGE See Sep Report INTERFACE SYSTEM 02/18/2006 1:25 PM BIOMEDICAL ENGINEERING INTERNSHIP us Steve Eugene MD CHEMISTRY ORDERABLES Final Re sult INTERFACE SYSTEM Refer to clinic/hospital department documented in this encounter Visit Diagnoses Not on filedocumented in this encounter Additional Health Concerns Infection Onset Date Last Indicated Resolved Time R/O COVID-19 01/26/2020 01/26/2020 01/28/2020 1:46 AM BIOMEDICAL ENGINEERING INTERNSHIP documented as of this encounter Care Teams Executive Legal Secretary Relationship Specialty Start Date End Date Yesneia Maria DO PCP - General Family Practice 04/18/20 07/14/20 documented as of this encounter
--- OUTSIDE RECORDS SUMMARY | 2025-02-18 20:07 | XMS_ITS | Encounter Summary ---
Author Organization [facility] Address [address] [place] [address] Care Team Providers Care Plate Painter Name Role Phone Yesenia Maria DO Primary Care Provider [phone] Encounter Details Date Type Department Care Team (Latest Contact Info) Description 03/26/2006 Outpatient [facility] Ear, Nose and Throat [address] [place] [phone] Steve Eugene MD NO ADDRESS ON FILE Follow-Up Examination, Following Unspecified Surgery (Primary Dx) Social History Tobacco Use Types Packs/Day Years Used Date Smoking Tobacco: Never Assessed Sex and Gender Information Value Date Recorded Sex Assigned at Not on file Legal 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 TUNNELLER Gender Identity Not on file Sexual Orientation Not on file documented as of this encounter Plan of Treatment Not on file documented as of this encounter Visit Diagnoses Diagnosis Follow-up examination, following unspecified surgery- Primary documented in this encounter Additional Health Concerns Infection Onset Date Last Indicated Resolved Time R/O COVID-19 01/26/2020 01/26/2020 01/28/2020 1:46 AM TUNNELLER documented as of this encounter Care Teams Plate Painter Relationship Specialty Start Date End Date Yesenia Maria DO PCP - General Family Practice 04/18/20 07/14/20 documented as of this encounter
--- OUTSIDE RECORDS SUMMARY | 2025-02-18 20:07 | XMS_ITS | Encounter Summary ---
Author Organization [facility] Address [address] [place] [address] Care Team Providers Care Duct Layer Helper Name Role Phone Yesenia aMria DO Primary Care Provider [phone] Encounter Details Date Type Department Care Team (Latest Contact Info) Description 03/19/2006 Outpatient [facility] Ear, Nose and Throat 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
--- OUTSIDE RECORDS SUMMARY | 2025-02-18 20:07 | XMS_ITS | Clinical Summary ---
Author Organization [facility] Address [address] [place] [address] Care Team Providers Care Head Usher Name Role Phone Unavailable Primary Care Provider [...] mellitus type II, controlled, with no complications ([facility]) Diagnosis 250.00. Test blood sugar two times a day 1 Each 0 10/12/19 13 Active lancets (ACCU-CHEK FASTCLIX) Misc MiscIndications:D iabetes mellitus type II, controlled, with no complications ([facility]) Diagnosis 250.00. Test blood sugar two times [...] supper. 9 mL 11 02/05/2020 10:54 AM INPATIENT CODER 09/22/19 20 Active glimepiride (AMARYL) 4 mg [...] 60 Tablet 5 04/23/19 21 Active Insulin [place], Disposable, (BD Ultra-Fine Short Pen Needle) 31 [...] hyperglycemia, without long-term current use of insulin ([facility]) Inject 14 Units by subcutaneous injection daily at bedtime. 15 mL 1 07/27/19 Active metFORMIN (GLUCOPHAGE) 1,000 mg tabletIndications :Type 2 diabetes mellitus with hyperglycemia, without long-term current use of insulin ([facility]) Take 1 Tablet (1,000 mg) by mouth [...] /3 mL (0.083 %) inhalation solution 2.5 mgIndications:Whittling Room Operator geovanny obstructive pulmonary disease, unspecified COPD type ([facility]) 2.5 mg Inhalation ONE TIME ONLY RESPIRATORY [...] on file Legal 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 INPATIENT CODER Gender Identity Not on file Sexual Orientation [...] CDT Respiratory Rate 12 05/10/2019 8:07 AM INPATIENT CODER Oxygen Saturation 98% 07/26/2020 8:23 AM CDT [...] Flex Sig/CT Colonography Q 5 years 01/15/2008 RSV VACCINE (60+ or ) (1 - Risk 50-74 years 1-dose series) 2013 ZOSTER VACCINE (1 of 2) 2013 DIABETES ANNUAL RETINAL EXAM 11/08/2019, 08/17/2016, 08/17/2016, Additional history exists DIABETES HBA1C Q 6 MONTHS 01/26/20212020, 04/19/2020, 08/28/2019, Additional history exists LDL CHOLESTEROL ANNUAL 04/19/2021 1, 05/10/2019, 03/22/2019, Additional history exists DIABETES ANNUAL FOOT EXAM 07/26/20212020, 07/26/2020, 08/18/2016, Additional history exists DIABETES MICROALBUMIN ANNUAL SCREEN 07/26/2021 07/26/2020, 05/10/2019, 03/28/2018, Additional history exists INFLUENZA VACCINE (#1) 2024 1, 03/28/2018, 12/19/2012, Additional history exists DTAP/TDAP/TD VACCINES (2 - T d or Tdap) 09/12/2028 09/12/2018 Medical Devices Implanted Type Area Assistant Store Manager Trainee Device Identifier Shelf Expiration Date Model / Serial / Lot Log [id number] - Lauryn Dynesys Lumbar Fixation - 1 - Cord Dynesys 100mm Implanted:Qty: 1 on 06/16/2010 at [facility] Other N/A: Spine Lumbar [employer] 04/15/2013.. 100 / NA / [id number] Description:two in package Log [id number] - Lauryn Dynesys Lumbar Fixation - 1 - Screw Pedicle 6.4x50mm 450 Implanted:Qty: 1 on 06/16/2010 at [facility] Screw N/A: Spine Lumbar [employer] 10/13/201016. 450 / NA / [id number] Description:two screws per p ackage Screw Bio-Tenodesis 7x23mm Ar-[id number] - [id number] Implanted:Qty: 1 on 02/07/2013 by Ajay Bustamante DO at [facility] Screw Left: Shoulder [employer] 06/13/2014 [id number] / / [id number] Description:left Log [id number] - Lauryn Dynesys Lumbar Fixation - 1 - Spacer Dynesys 45mm 2/Ea .645 Implanted:Qty: 1 on 06/16/2010 at [facility] Spacer N/A: Spine Lumbar [employer] 08/13/2012.. 645 / NA / [id number] Description:two per package Log [id number] - Lauryn Dynesys Lumbar Fixation - 1 - Spacer Dynesys 45mm 2/Ea ..645 Implanted:Qty: 1 on 06/16/2010 at [facility] Spacer N/A: Spine Lumbar [employer] 08/13/2012.60065. 645 / NA / [id number] Explanted Type Area Assistant Store Manager Trainee Device Identifier Shelf Expiration Date Model / Serial / Lot Log [id number] - Lauryn Dynesys Lumbar Fixation - 1 - Cord Dynesys 100mm 100 Explanted:Qty: 1 on 06/16/2010 at [facility] Other N/A: Spine Lumbar [employer] 22618.1 00 / NA / NA Description:EXPLANTED EXISTI NG HARDWARE DUE TO NEED FOR EXTENSION PER RADHA LAURYN REP Log [id number] - Lauryn Dynesys Lumbar Fixation - 1 - Spacer Dynesys 45mm 2/Ea 68524.645 Explanted:Qty: 1 on 06/16/2010 at [facility] Spacer N/A: Spine Lumbar [employer] 69217.6 45 / NA / NA Description:EXPLANTED EXISTI NG HARDWARE DUE TO NEED FOR EXTENSION PER RADHA LAURYN REP Procedures Procedure Name Priority Date/Time Associated Diagnosis Comments HEMOGLOBIN A1C Routine 07/26/2020 8:45 AM CDT Type 2 diabetes mellitus with hyperglycemia, without long-term current use of insulin ([facility]) MICROALBUMIN/CREATI NINE RATIO, RANDOM UR Routine 07/26/2020 8:26 AM CDT Type 2 diabetes mellitus with hyperglycemia, without long-term current use of insulin ([facility]) LIPID PANEL Routine 04/19/2020 8:34 AM INPATIENT CODER Essential hypertension from Last 3 Months or Most Recently Relevant to Health Maintenance Results * (ABNORMAL) HEMOGLOBIN A1C (07/26/2020 8:45 AM CDT) HEMOGLOBIN A1C 8.2(H) See Comment % 07/26/2020 6:06 PM CDT [facility] EST. AVG GLUCOSE, A1C 189 mg/dL 07/26/2020 6:06 PM CDT [facility] Blood Venipuncture / Unknown 07/26/2020 8:45 AM CDT 07/26/2020 8:45 AM CDT Narrative [facility] - 07/26/2020 6:06 PM CDT HGB A1C INTERPRETATION NORMAL: <5.7% PRE-DIABETES: 5.7 - 6.4% DIABETES: 6.5% OR GREATER Falsely low A1C measurements can occur when: 1. Anemia and/or hemolytic anemia is present. 2. Hemoglobin variants present. 3. Renal failure. 4. Transfusion of blood product in the last 120 days. We recommend ordering a fructosamine test([id number]) to more accurately assess glycemic status if any of the above conditions are present. Princess Lopez NP CHEMISTRY ORDERABLES Final Result Performing Organization Address [facility]/ZIP Co de Phone Number [facility] CLIA# [id number] [address] [place] [address] * (ABNORMAL) MICROALBUMIN/CREATININE RATIO, RANDOM UR (07/26/2020 8:26 AM CDT) MICROALBUMIN, URINE 10.0 No Reference Range mg/dL 07/26/2020 5:37 PM CDT [facility] CREATININE, URINE 51.6 40.0 - 278.0 mg/dL 07/26/2020 5:37 PM CDT [facility] Comment:Reference Range vari es with fluid intake and diet. MICROALBUMIN/ CREAT RATIO, UR 193.8(H) <17.0 mg/g 07/26/2020 5:37 PM CDT [facility] Urine URINE SPECIMEN OBTAINED BY CLEAN CATCH PROCEDURE / Unknown Collection / Unknown 07/26/2020 8:26 AM CDT 07/26/2020 8:26 AM CDT Narrative [facility] - 07/26/2020 5:37 PM CDT Condition Microalbumin/Creat ratio Normal Males <17 Normal Females <25 Microalbuminuria Males 17-299 Microalbuminuria Females 25-299 Overt proteinuria >=300 us Princess Lopez NP URINE ORDERABLES Final Res ult [facility] CLIA# [id number] [address] [place] [address] * (ABNORMAL) LIPID PANEL (04/19/2020 8:34 AM INPATIENT CODER) CHOLESTEROL 144 <200 mg/dL 04/19/2020 4:40 PM [facility] TRIGLYCERIDE 582(H) <150 mg/dL 04/19/2020 4:40 PM [facility] HDL 22(L) 40 - 59 mg/dL 04/19/2020 4:40 PM [facility] LDL CALCULATED 04/19/2020 4:40 PM [facility] Comment:Calculated LDL is no t accurate when the Triglyceride value exceeds 400. NON-HDL CHOLESTEROL 122 <130 mg/dL 04/19/2020 4:40 PM [facility] Blood Venipuncture / Unknown 04/19/2020 8:34 AM INPATIENT CODER 04/19/2020 8:34 AM INPATIENT CODER Narrative [facility] - 04/19/2020 4:40 PM INPATIENT CODER TOTAL CHOLESTEROL mg/dL Desirable <200 Borderline high [...] Princess Lopez NP CHEMISTRY ORDERABLES Final Result [facility] CLIA# [id number] [address] [place] [address] from Last 3 Months or Most Recently Relevant to Health Maintenance Insurance MEDICA[place] MEDICARE PART A AND B RX [facility] Medicare Part D RX INFOCROSSING Medicaid ([place]) [address] [address] [place] [id number] Advance Directives For more information, please contact: [phone] * Full Code (Latest Code Status on [...]
--- OUTSIDE RECORDS SUMMARY | 2025-02-18 20:07 | XMS_ITS | Encounter Summary ---
Author Organization [facility] Address [address] [place] [address] Care Team Providers Care Political Advisor Name Role Phone Yesenia Maria DO Primary Care Provider [phone] Encounter Details Date Type Department Care Team (Latest Contact Info) Description 01/18/2006 Outpatient Historical [facility] Optometry[address] [place] [address] Loyd Bacon, OD [address] [place] [address] Nuclear Sclerosis (Primary Dx) Social History Tobacco Use Types Packs/Day Years Used Date Smoking Tobacco: Never Assessed Sex and Gender Information Value Date Recorded Sex Assigned at Not on file Legal 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 LABOR RELATIONS OFFICER Gender Identity Not on file Sexual Orientation Not on file documented as of this encounter Plan of Treatment Not on file documented as of this encounter Visit Diagnoses Diagnosis Nuclear sclerosis- Primary Senile nuclear sclerosis documented in this encounter Additional Health Concerns Infection Onset Date Last Indicated Resolved Time R/O COVID-19 01/26/2020 01/26/2020 01/28/2020 1:46 AM LABOR RELATIONS OFFICER documented as of this encounter Care Teams Political Advisor Relationship Specialty Start Date End Date Yesenia Maria DO PCP - General Family Practice 04/18/20 07/14/20 documented as of this encounter
--- OUTSIDE RECORDS SUMMARY | 2025-02-18 20:07 | XMS_ITS | Encounter Summary ---
Author Organization [facility] Address [address] [place] [address] Care Team Providers Care Air Carrier Maintenance Inspector Name Role Phone Yesenia Maria DO Primary Care Provider [phone] Encounter Details Date Type Department Care Team (Latest Contact Info) Description 10/05/2005 Outpatient Historical [facility] Medicine [address] [place] [phone] Yuri Richter MD NO ADDRESS ON FILE Unspecified Essential Hypertension (Primary Dx); Other Abnormal Glucose Social History Tobacco Use Types Packs/Day Years Used Date Smoking Tobacco: Never Assessed Sex and Gender Information Value Date Recorded Sex Assigned at Not on file Legal 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 PRECINCT POLICE CAPTAIN Gender Identity Not on file Sexual Orientation Not on file documented as of this encounter Plan of Treatment Not on file documented as of this encounter Visit Diagnoses Diagnosis Unspecified essential hypertension- Primary Other abnormal glucose documented in this encounter Additional Health Concerns Infection Onset Date Last Indicated Resolved Time R/O COVID-19 01/26/2020 01/26/2020 01/28/2020 1:46 AM PRECINCT POLICE CAPTAIN documented as of this encounter Care Teams Air Carrier Maintenance Inspector Relationship Specialty Start Date End Date Yesenia Maria DO PCP - General Family Practice 04/18/20 07/14/20 documented as of this encounter
--- OUTSIDE RECORDS SUMMARY | 2025-02-18 20:07 | XMS_ITS | Encounter Summary ---
Author Organization [facility] Address [address] [place] [address] Care Team Providers Care Faith Healer Name Role Phone Yesenia Maria DO Primary Care Provider [phone] Encounter Details Date Type Department Care Team (Latest Contact Info) Description 03/19/2006 Outpatient Historical [facility] [place] [address] [place] [phone] Steve Eugene MD NO ADDRESS ON FILE Deviated Nasal Septum (Primary Dx); Chronic Maxillary Sinusitis; Chronic Ethmoidal Sinusitis; Hypertrph Nasal Turbinat Social History Tobacco Use Types Packs/Day Years Used Date Smoking Tobacco: Never Assessed Sex and Gender Information Value Date Recorded Sex Assigned at Not on file Legal 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 AUTOMATIC TOE LASTER Gender Identity Not on file Sexual Orientation [...] R/O COVID-19 01/26/2020 01/26/2020 01/28/2020 1:46 AM AUTOMATIC TOE LASTER documented as of this encounter Care Teams Faith Healer Relationship Specialty Start Date End Date Yesenia Maria DO PCP - General Family Practice 04/18/20 07/14/20 documented as of this encounter
--- OUTSIDE RECORDS SUMMARY | 2025-02-18 20:07 | XMS_ITS | Encounter Summary ---
Author Organization [facility] Address [address] [place] [address] Care Team Providers Care Licensed Optical Dispenser Name Role Phone Yesenia Maria DO Primary Care Provider [phone] Encounter Details Date Type Department Care Team (Latest Contact Info) Description 07/24/2005 Outpatient Historical [facility] Optometry[address] [place] [address] Loyd Bacon, OD [address] [place] [address] Nuclear Sclerosis (Primary Dx) Social History Tobacco Use Types Packs/Day Years Used Date Smoking Tobacco: Never Assessed Sex and Gender Information Value Date Recorded Sex Assigned at Not on file Legal 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 DIRECTOR OF INSTRUCTION Gender Identity Not on file Sexual Orientation Not on file documented as of this encounter Plan of Treatment Not on file documented as of this encounter Visit Diagnoses Diagnosis Nuclear sclerosis- Primary Senile nuclear sclerosis documented in this encounter Additional Health Concerns Infection Onset Date Last Indicated Resolved Time R/O COVID-19 01/26/2020 01/26/2020 01/28/2020 1:46 AM DIRECTOR OF INSTRUCTION documented as of this encounter Care Teams Licensed Optical Dispenser Relationship Specialty Start Date End Date Yesenia Maria DO PCP - General Family Practice 04/18/20 07/14/20 documented as of this encounter
--- OUTSIDE RECORDS SUMMARY | 2025-02-18 20:07 | XMS_ITS | Encounter Summary ---
Author Organization [facility] Address [address] [place] [address] Care Team Providers Care Beehive Kiln Charcoal Burner Name Role Phone Yesenia Maria DO Primary Care Provider Encounter Details Date Type Department Care Team (Latest Contact Info) Description 12/07/2005 Outpatient Historical [facility] Medicine [address] [place] [phone] Yuri Richter MD NO ADDRESS ON FILE Acute Upper Respiratory Infections of Unspecified Site (Primary Dx) Social History Tobacco Use Types Packs/Day Years Used Date Smoking Tobacco: Never Assessed Sex and Gender Information Value Date Recorded Sex Assigned at Not on file Legal 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 FITTER / WELDER Gender Identity Not on file Sexual Orientation Not on file documented as of this encounter Plan of Treatment Not on file documented as of this encounter Visit Diagnoses Diagnosis Acute upper respiratory infections of unspecified site- Primary documented in this encounter Additional Health Concerns Infection Onset Date Last Indicated Resolved Time R/O COVID-19 01/26/2020 01/26/2020 01/28/2020 1:46 AM FITTER / WELDER documented as of this encounter Care Teams Beehive Kiln Charcoal Burner Relationship Specialty Start Date End Date Yesenia Maria DO PCP - General Family Practice 04/18/20 07/14/20 documented as of this encounter
--- OUTSIDE RECORDS SUMMARY | 2025-02-18 20:07 | XMS_ITS | Encounter Summary ---
Author Organization [facility] Address [address] [place] [address] Care Team Providers Care Hvac Sheet Metal Installer Helper Name Role Phone Yesenia Maria DO Primary Care Provider [phone] Encounter Details Date Type Department Care Team (Latest Contact Info) Description 05/08/2010 Outpatient Historical [facility] [address] [place] [address] Ajay Rodriguez MD NO ADDRESS ON FILE Thoracic or lumbosacral neuritis or radiculitis, unspecified (Primary Dx) Social History Tobacco Use Types Packs/Day Years Used Date Smoking Tobacco: Every Day Cigarettes 0.3 Last attempted to quit: 12/14/2007 Smokeless Tobacco: Never Comments:may smoke occassion ally 1/4 pack Alcohol Use Standard Drinks/Week Comments No 0 (1 standard drink = 0.6 oz pur e alcohol) Sex and Gender Information Value Date Recorded Sex Assigned at Not on file Legal 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 CONCRETE BOOM PUMP OPERATOR Gender Identity Not on file Sexual Orientation Not on file documented as of this encounter Plan of Treatment Not on file documented as of this encounter Visit Diagnoses Diagnosis Thoracic or lumbosacral neuritis or radiculitis, unspecified- Primary documented in this encounter Additional Health Concerns Infection Onset Date Last Indicated Resolved Time R/O COVID-19 01/26/2020 01/26/2020 01/28/2020 1:46 AM CONCRETE BOOM PUMP OPERATOR documented as of this encounter Care Teams Hvac Sheet Metal Installer Helper Relationship Specialty Start Date End Date Yesenia Maria DO PCP - General Family Practice 04/18/20 07/14/20 documented as of this encounter
--- OUTSIDE RECORDS SUMMARY | 2025-02-18 20:08 | XMS_ITS | Encounter Summary ---
Author Organization [facility] Address [address] [place] [address] Care Team Providers Care Weatherization Operations Manager Name Role Phone Yesenia Maria DO Primary Care Provider [phone] Encounter Details Date Type Department Care Team (Latest Contact Info) Description 04/02/2003 Outpatient Historical [facility] Medicine [address] [place] [phone] Yuri Richter MD NO ADDRESS ON FILE ACUTE BRONCHITIS (Primary Dx) Social History Tobacco Use Types Packs/Day Years Used Date Smoking Tobacco: Never Assessed Sex and Gender Information Value Date Recorded Sex Assigned at Not on file Legal 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 DIRECTOR OF SPECIAL EDUCATION Gender Identity Not on file Sexual Orientation Not on file documented as of this encounter Plan of Treatment Not on file documented as of this encounter Visit Diagnoses Diagnosis Acute bronchitis- Primary documented in this encounter Additional Health Concerns Infection Onset Date Last Indicated Resolved Time R/O COVID-19 01/26/2020 01/26/2020 01/28/2020 1:46 AM DIRECTOR OF SPECIAL EDUCATION documented as of this encounter Care Teams Weatherization Operations Manager Relationship Specialty Start Date End Date Yesenia Maria DO PCP - General Family Practice 04/18/20 07/14/20 documented as of this encounter
--- OUTSIDE RECORDS SUMMARY | 2025-02-18 20:08 | XMS_ITS | Encounter Summary ---
Author Organization [facility] Address [address] [place] [address] Care Team Providers Care Drying Frame Operator Name Role Phone Yesenia Maria DO Primary Care Provider [phone] Encounter Details Date Type Department Care Team (Latest Contact Info) Description 09/04/2002 Outpatient Historical [facility] Medicine [address] [place] [address] Yuri Richter MD NO ADDRESS ON FILE DIABETES UNCOMPL ADULT-TYPE II (CMS/HCC) (Primary Dx); Pure hypercholesterolem; HYPERTENSION NOS Social History Tobacco Use Types Packs/Day Years Used Date Smoking Tobacco: Never Assessed Sex and Gender Information Value Date Recorded Sex Assigned at Not on file Legal 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 TRAINING SYSTEMS OFFICER Gender Identity Not on file Sexual [...] R/O COVID-19 01/26/2020 01/26/2020 01/28/2020 1:46 AM TRAINING SYSTEMS OFFICER documented as of this encounter Care Teams Drying Frame Operator Relationship Specialty Start Date End Date Yesenia Maria DO PCP - General Family Practice 04/18/20 07/14/20 documented as of this encounter
--- OUTSIDE RECORDS SUMMARY | 2025-02-18 20:08 | XMS_ITS | Encounter Summary ---
Author Organization [facility] Address [address] [place] [address] Care Team Providers Care Skid Wrapper Name Role Phone MariaYesenia dawson Primary Care Provider [phone] Encounter Details Date Type Department Care Team (Late st Contact Info) Description 12/19/2009 Ancillary Orders [facility] [address] [place] [phone] Ajay Bustamante DO [address] [place] [address] Hip pain Social History Tobacco Use Types Packs/Day Years Used Date Smoking Tobacco: Every Day Cigarettes 0.3 Last attempted to quit: 12/14/2007 Comments:may smoke occassion ally Alcohol Use Standard Drinks/Week Comments No 0 (1 standard drink = 0.6 oz pur e alcohol) Sex and Gender Information Value Date Recorded Sex Assigned at Not on file Legal 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 MEDICAL LANGUAGE SPECIALIST Gender Identity Not on file Sexual [...] result of 12/19/2009. tjb - uploaded from [employer]- Narrative 12/19/2009 2:53 PM CDT AP fluoroscopic [...] result of 12/19/2009. tjb - uploaded from [email or web address]- Ajay Bustamante DO DIAGNOSTIC IMAGING ORDERABLES Final Result documented in this encounter Visit Diagnoses Diagnosis Hip pain Pain in joint, pelvic region and thigh Hip pain Pain in joint, pelvic region and thigh documented in this encounter Additional Health Concerns Infection Onset Date Last Indicated Resolved Time R/O COVID-19 01/26/2020 01/26/2020 01/28/2020 1:46 AM MEDICAL LANGUAGE SPECIALIST documented as of this encounter Care Teams Skid Wrapper Relationship Specialty Start Date End Date Yesenia Maria DO PCP - General Family Practice 04/18/20 07/14/20 documented as of this encounter
--- OUTSIDE RECORDS SUMMARY | 2025-02-18 20:08 | XMS_ITS | Encounter Summary ---
Author Organization [facility] Address [address] [place] [address] Care Team Providers Care Network Systems Integrator Name Role Phone Yesenia Maria DO Primary Care Provider [phone] Encounter Details Date Type Department Care Team (Latest Contact Info) Description 12/17/2009 Outpatient Historical [facility] [address] [place] [address] Miguel Hayden MD [address] [phone] Lumbago (Primary Dx); Thoracic or lumbosacral neuritis [...] on file Legal 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 DISPATCHER CLERK Gender Identity Not on file Sexual Orientation [...] R/O COVID-19 01/26/2020 01/26/2020 01/28/2020 1:46 AM DISPATCHER CLERK documented as of this encounter Care Teams Network Systems Integrator Relationship Specialty Start Date End Date Yesenia Maria DO PCP - General Family Practice 04/18/20 07/14/20 documented as of this encounter
--- OUTSIDE RECORDS SUMMARY | 2025-02-18 20:08 | XMS_ITS | Encounter Summary ---
Author Organization [facility] Address [address] [place] [address] Care Team Providers Care Diesel Truck Driver Name Role Phone Yesenia Maria DO Primary Care Provider [phone] Encounter Details Date Type Department Care Team (Latest Contact Info) Description 08/05/2006 Outpatient [facility] [address] [place] [address] Heladio Perez MD NO ADDRESS ON FILE Other Dyspnea and Respiratory Abnormality (Primary Dx) Social History Tobacco Use Types Packs/Day Years Used Date Smoking Tobacco: Never Assessed Sex and Gender Information Value Date Recorded Sex Assigned at Not on file Legal 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 REAL ESTATE ASSOCIATE ATTORNEY Gender Identity Not on file Sexual Orientation Not on file documented as of this encounter Plan of Treatment Not on file documented as of this encounter Visit Diagnoses Diagnosis Other dyspnea and respiratory abnormality- Primary documented in this encounter Additional Health Concerns Infection Onset Date Last Indicated Resolved Time R/O COVID-19 01/26/2020 01/26/2020 01/28/2020 1:46 AM REAL ESTATE ASSOCIATE ATTORNEY documented as of this encounter Care Teams Diesel Truck Driver Relationship Specialty Start Date End Date Yesenia Maria DO PCP - General Family Practice 04/18/20 07/14/20 documented as of this encounter
--- OUTSIDE RECORDS SUMMARY | 2025-02-18 20:08 | XMS_ITS | Encounter Summary ---
Author Organization [facility] Address [address] [place] [address] Care Team Providers Care Licensing Representative Name Role Phone Yesenia Maria DO Primary Care Provider [phone] Encounter Details Date Type Department Care Team (Latest Contact Info) Description 05/16/2003 Outpatient Historical [facility] Medicine [address] [place] [phone] Yuri Richter MD NO ADDRESS ON FILE FX ANKLE NOS-CLOSED (Primary Dx) Social History Tobacco Use Types Packs/Day Years Used Date Smoking Tobacco: Never Assessed Sex and Gender Information Value Date Recorded Sex Assigned at Not on file Legal 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 PROFESSOR OF FAMILY MEDICINE Gender Identity Not on file Sexual Orientation Not on file documented as of this encounter Plan of Treatment Not on file documented as of this encounter Visit Diagnoses Diagnosis Unspecified closed fracture of ankle- Primary documented in this encounter Additional Health Concerns Infection Onset Date Last Indicated Resolved Time R/O COVID-19 01/26/2020 01/26/2020 01/28/2020 1:46 AM PROFESSOR OF FAMILY MEDICINE documented as of this encounter Care Teams Licensing Representative Relationship Specialty Start Date End Date Yesenia Maria DO PCP - General Family Practice 04/18/20 07/14/20 documented as of this encounter
--- OUTSIDE RECORDS SUMMARY | 2025-02-18 20:08 | XMS_ITS | Encounter Summary ---
Author Organization [facility] Address [address] [place] [address] Care Team Providers Care Tennis Net Maker Name Role Phone Yesenia Maria DO Primary Care Provider [phone] Encounter Details Date Type Department Care Team (Latest Contact Info) Description 11/20/2002 Outpatient Historical [facility] Medicine [address] [place] [address] Yuri Richter MD NO ADDRESS ON FILE DIABETES UNCOMPL ADULT-TYPE II (CMS/HCC) (Primary Dx); Pure hypercholesterolem; HYPERTENSION NOS Social History Tobacco Use Types Packs/Day Years Used Date Smoking Tobacco: Never Assessed Sex and Gender Information Value Date Recorded Sex Assigned at Not on file Legal 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 JOURNEYMAN POWER PLANT OPERATOR Gender Identity Not on file Sexual [...] R/O COVID-19 01/26/2020 01/26/2020 01/28/2020 1:46 AM JOURNEYMAN POWER PLANT OPERATOR documented as of this encounter Care Teams Tennis Net Maker Relationship Specialty Start Date End Date Yesenia Maria DO PCP - General Family Practice 04/18/20 07/14/20 documented as of this encounter
--- OUTSIDE RECORDS SUMMARY | 2025-02-18 20:08 | XMS_ITS | Encounter Summary ---
Author Organization [facility] Address [address] [place] [address] Care Team Providers Care Wool Dyer Name Role Phone Yesenia Maria DO Primary Care Provider [phone] Encounter Details Date Type Department Care Team (Latest Contact Info) Description 05/20/2004 Outpatient Historical [address] [place] [address] [place] [phone] Melly Jameson DO NO ADDRESS ON FILE ACUTE SINUSITIS NOS (Primary Dx) Social History Tobacco Use Types Packs/Day Years Used Date Smoking Tobacco: Never Assessed Sex and Gender Information Value Date Recorded Sex Assigned at Not on file Legal 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 MOTOR ROOM CONTROLLER Gender Identity Not on file Sexual Orientation Not on file documented as of this encounter Plan of Treatment Not on file documented as of this encounter Visit Diagnoses Diagnosis Acute sinusitis, unspecified- Primary documented in this encounter Additional Health Concerns Infection Onset Date Last Indicated Resolved Time R/O COVID-19 01/26/2020 01/26/2020 01/28/2020 1:46 AM MOTOR ROOM CONTROLLER documented as of this encounter Care Teams Wool Dyer Relationship Specialty Start Date End Date Yesenia Maria DO PCP - General Family Practice 04/18/20 07/14/20 documented as of this encounter
--- OUTSIDE RECORDS SUMMARY | 2025-02-18 20:08 | XMS_ITS | Encounter Summary ---
Author Organization [facility] Address [address] [place] [address] Care Team Providers Care Wreath Inspector Name Role Phone Yesenia Maria DO Primary Care Provider [phone] Encounter Details Date Type Department Care Team (Latest Contact Info) Description 06/25/2003 Outpatient Historical [facility] Medicine [address] [place] [phone] Yuri Richter MD NO ADDRESS ON FILE FX ANKLE NOS-CLOSED (Primary Dx) Social History Tobacco Use Types Packs/Day Years Used Date Smoking Tobacco: Never Assessed Sex and Gender Information Value Date Recorded Sex Assigned at Not on file Legal 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 KILN DOOR REPAIRER Gender Identity Not on file Sexual Orientation Not on file documented as of this encounter Plan of Treatment Not on file documented as of this encounter Visit Diagnoses Diagnosis Unspecified closed fracture of ankle- Primary documented in this encounter Additional Health Concerns Infection Onset Date Last Indicated Resolved Time R/O COVID-19 01/26/2020 01/26/2020 01/28/2020 1:46 AM KILN DOOR REPAIRER documented as of this encounter Care Teams Wreath Inspector Relationship Specialty Start Date End Date Yesenia Maria DO PCP - General Family Practice 04/18/20 07/14/20 documented as of this encounter
--- OUTSIDE RECORDS SUMMARY | 2025-02-18 20:08 | XMS_ITS | Encounter Summary ---
Author Organization [facility] Address [address] [place] [address] Care Team Providers Care Production Illustrator Name Role Phone Yesenia Maria DO Primary Care Provider [phone] Encounter Details Date Type Department Care Team (Latest Contact Info) Description 10/07/2004 Outpatient Historical [facility] Medicine [address] [place] [phone] Yuri Richter MD NO ADDRESS ON FILE CONJUNCTIVITIS NOS (Primary Dx) Social History Tobacco Use Types Packs/Day Years Used Date Smoking Tobacco: Never Assessed Sex and Gender Information Value Date Recorded Sex Assigned at Not on file Legal 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 CONCRETE BLOCK MOLDER Gender Identity Not on file Sexual Orientation Not on file documented as of this encounter Plan of Treatment Not on file documented as of this encounter Visit Diagnoses Diagnosis Conjunctivitis unspecified- Primary Conjunctivitis, unspecified documented in this encounter Additional Health Concerns Infection Onset Date Last Indicated Resolved Time R/O COVID-19 01/26/2020 01/26/2020 01/28/2020 1:46 AM CONCRETE BLOCK MOLDER documented as of this encounter Care Teams Production Illustrator Relationship Specialty Start Date End Date Yesenia Maria DO PCP - General Family Practice 04/18/20 07/14/20 documented as of this encounter
--- OUTSIDE RECORDS SUMMARY | 2025-02-18 20:08 | XMS_ITS | Encounter Summary ---
Author Organization [facility] Address [address] [place] [address] Care Team Providers Care Watch Engineer Name Role Phone Yesenia Maria DO Primary Care Provider [phone] Encounter Details Date Type Department Care Team (Latest Contact Info) Description 09/04/2004 Outpatient Historical [facility] Medicine [address] [place] [address] Yuri Richter MD NO ADDRESS ON FILE ASCVD (Primary Dx); Pure hypercholesterolem; HYPERTENSION NOS; CEREBRAL THROMB CEREBRAL INFARCT (CMS/HCC) Social History Tobacco Use Types Packs/Day Years Used Date Smoking Tobacco: Never Assessed Sex and Gender Information Value Date Recorded Sex Assigned at Not on file Legal 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 TEAM ASSEMBLY LINE MACHINE OPERATOR Gender Identity Not on file [...] R/O COVID-19 01/26/2020 01/26/2020 01/28/2020 1:46 AM TEAM ASSEMBLY LINE MACHINE OPERATOR documented as of this encounter Care Teams Watch Engineer Relationship Specialty Start Date End Date Yesenia Maria DO PCP - General Family Practice 04/18/20 07/14/20 documented as of this encounter
--- OUTSIDE RECORDS SUMMARY | 2025-02-18 20:08 | XMS_ITS | Encounter Summary ---
Author Organization [facility] Address [address] [place] [address] Care Team Providers Care Supervisor Inspection Name Role Phone Yesenia Maria DO Primary Care Provider [phone] Encounter Details Date Type Department Care Team (Late st Contact Info) Description 08/05/2006 Outpatient Historical [facility] [place] [address] [place] [phone] Social History Tobacco Use Types Packs/Day Years Used Date Smoking Tobacco: Never Assessed Sex and Gender Information Value Date Recorded Sex Assigned at Not on file Legal 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 SENIOR FIREWALL ENGINEER Gender Identity Not on file Sexual Orientation Not on file documented as of this encounter Plan of Treatment Not on file documented as of this encounter Visit Diagnoses Not on filedocumented in this encounter Additional Health Concerns Infection Onset Date Last Indicated Resolved Time R/O COVID-19 01/26/2020 01/26/2020 01/28/2020 1:46 AM SENIOR FIREWALL ENGINEER documented as of this encounter Care Teams Supervisor Inspection Relationship Specialty Start Date End Date Yesenia Maria DO PCP - General Family Practice 04/18/20 07/14/20 documented as of this encounter
--- OUTSIDE RECORDS SUMMARY | 2025-02-18 20:08 | XMS_ITS | Encounter Summary ---
Author Organization [facility] Address [address] [place] [address] Care Team Providers Care Sales Representative Uniforms Name Role Phone Yesenia Maria DO Primary Care Provider [phone] Encounter Details Date Type Department Care Team (Latest Contact Info) Description 06/04/2003 Outpatient Historical [facility] Medicine [address] [place] [phone] Yuri Richter MD NO ADDRESS ON FILE FX ANKLE NOS-CLOSED (Primary Dx) Social History Tobacco Use Types Packs/Day Years Used Date Smoking Tobacco: Never Assessed Sex and Gender Information Value Date Recorded Sex Assigned at Not on file Legal 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 WILDLIFE REFUGE SPECIALIST Gender Identity Not on file Sexual Orientation Not on file documented as of this encounter Plan of Treatment Not on file documented as of this encounter Visit Diagnoses Diagnosis Unspecified closed fracture of ankle- Primary documented in this encounter Additional Health Concerns Infection Onset Date Last Indicated Resolved Time R/O COVID-19 01/26/2020 01/26/2020 01/28/2020 1:46 AM WILDLIFE REFUGE SPECIALIST documented as of this encounter Care Teams Sales Representative Uniforms Relationship Specialty Start Date End Date Yesenia Maria DO PCP - General Family Practice 04/18/20 07/14/20 documented as of this encounter
--- OUTSIDE RECORDS SUMMARY | 2025-02-18 20:08 | XMS_ITS | Encounter Summary ---
Author Organization [facility] Address [address] [place] [address] Care Team Providers Care Homeowner Association Manager Name Role Phone Yesenia Maria DO Primary Care Provider [phone] Encounter Details Date Type Department Care Team (Latest Contact Info) Description 10/16/2002 Outpatient Historical [facility] Medicine [address] [place] [phone] Yuri Richter MD NO ADDRESS ON FILE Pure hypercholesterolem (Primary Dx); HYPERTENSION NOS Social History Tobacco Use Types Packs/Day Years Used Date Smoking Tobacco: Never Assessed Sex and Gender Information Value Date Recorded Sex Assigned at Not on file Legal 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 WEARING APPAREL PRESSER Gender Identity Not on file Sexual Orientation Not on file documented as of this encounter Plan of Treatment Not on file documented as of this encounter Visit Diagnoses Diagnosis Pure hypercholesterolem- Primary Pure hypercholesterolemia Unspecified essential hypertension documented in this encounter Additional Health Concerns Infection Onset Date Last Indicated Resolved Time R/O COVID-19 01/26/2020 01/26/2020 01/28/2020 1:46 AM WEARING APPAREL PRESSER documented as of this encounter Care Teams Homeowner Association Manager Relationship Specialty Start Date End Date Yesenia Maria DO PCP - General Family Practice 04/18/20 07/14/20 documented as of this encounter
--- OUTSIDE RECORDS SUMMARY | 2025-02-18 20:08 | XMS_ITS | Encounter Summary ---
Author Organization [facility] Address [address] [place] [address] Care Team Providers Care Coding Advisor Name Role Phone Yesenia Maria DO Primary Care Provider [phone] Encounter Details Date Type Department Care Team (Latest Contact Info) Description 06/17/2005 Outpatient Historical [facility] Medicine [address] [place] [phone] Yuri Richter MD NO ADDRESS ON FILE Pure Hypercholesterolem (Primary Dx); Unspecified Essential Hypertension Social History Tobacco Use Types Packs/Day Years Used Date Smoking Tobacco: Never Assessed Sex and Gender Information Value Date Recorded Sex Assigned at Not on file Legal 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 COURIER DELIVERY DRIVER Gender Identity Not on file Sexual Orientation Not on file documented as of this encounter Plan of Treatment Not on file documented as of this encounter Visit Diagnoses Diagnosis Pure hypercholesterolem- Primary Pure hypercholesterolemia Unspecified essential hypertension documented in this encounter Additional Health Concerns Infection Onset Date Last Indicated Resolved Time R/O COVID-19 01/26/2020 01/26/2020 01/28/2020 1:46 AM COURIER DELIVERY DRIVER documented as of this encounter Care Teams Coding Advisor Relationship Specialty Start Date End Date Yesenia Maria DO PCP - General Family Practice 04/18/20 07/14/20 documented as of this encounter
--- OUTSIDE RECORDS SUMMARY | 2025-02-18 20:08 | XMS_ITS | Encounter Summary ---
Author Organization [facility] Address [address] [place] [address] Care Team Providers Care Salesperson Women'S Dresses Name Role Phone Yesenia Maria DO Primary Care Provider [phone] Encounter Details Date Type Department Care Team (Latest Contact Info) Description 07/02/[address] [facility] Internal Medicine and Pediatrics-[address] [place] [address] [place] [phone] Adalberto Cruz MD [address] [place] [address] PERIPH VASCULAR DIS NOS (Primary Dx) Social History Tobacco Use Types Packs/Day Years Used Date Smoking Tobacco: Never Assessed Sex and Gender Information Value Date Recorded Sex Assigned at Not on file Legal 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 SENIOR ACCOUNTS PAYABLE CLERK Gender Identity Not on file Sexual Orientation Not on file documented as of this encounter Plan of Treatment Not on file documented as of this encounter Visit Diagnoses Diagnosis Peripheral vascular disease, unspecified- Primary documented in this encounter Additional Health Concerns Infection Onset Date Last Indicated Resolved Time R/O COVID-19 01/26/2020 01/26/2020 01/28/2020 1:46 AM SENIOR ACCOUNTS PAYABLE CLERK documented as of this encounter Care Teams Salesperson Women'S Dresses Relationship Specialty Start Date End Date Yesenia Maria DO PCP - General Family Practice 04/18/20 07/14/20 documented as of this encounter
--- OUTSIDE RECORDS SUMMARY | 2025-02-18 20:08 | XMS_ITS | Encounter Summary ---
Author Organization [facility] Address [address] [place] [address] Care Team Providers Care Urban Forester Name Role Phone Yesenia Maria DO Primary Care Provider [phone] Encounter Details Date Type Department Care Team (Latest Contact Info) Description 11/06/2004 Outpatient Historical [facility] Medicine [address] [place] [phone] Gregor Bro MD NO ADDRESS ON FILE SHORTNESS OF BREATH (Primary Dx) Social History Tobacco Use Types Packs/Day Years Used Date Smoking Tobacco: Never Assessed Sex and Gender Information Value Date Recorded Sex Assigned at Not on file Legal 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 DIRECTOR OF STRATEGIC SALES Gender Identity Not on file Sexual Orientation Not on file documented as of this encounter Plan of Treatment Not on file documented as of this encounter Visit Diagnoses Diagnosis Shortness of breath- Primary documented in this encounter Additional Health Concerns Infection Onset Date Last Indicated Resolved Time R/O COVID-19 01/26/2020 01/26/2020 01/28/2020 1:46 AM DIRECTOR OF STRATEGIC SALES documented as of this encounter Care Teams Urban Forester Relationship Specialty Start Date End Date Yesenia Maria DO PCP - General Family Practice 04/18/20 07/14/20 documented as of this encounter
--- OUTSIDE RECORDS SUMMARY | 2025-02-18 20:08 | XMS_ITS | Encounter Summary ---
Author Organization [facility] Address [address] [place] [address] Care Team Providers Care Exterminator Helper Termite Name Role Phone Yesenia Maria DO Primary Care Provider [phone] Encounter Details Date Type Department Care Team (Latest Contact Info) Description 09/04/2004 Outpatient Historical [facility] Internal Medicine and Pediatrics-[address] Salnias [address] [place] [phone] Adalberto Cruz MD [address] [place] [address] PERIPH VASCULAR DIS NOS (Primary Dx); HYPERLIPIDEMIA NEC/NOS; HYPERTENSION NOS Social History Tobacco Use Types Packs/Day Years Used Date Smoking Tobacco: Never Assessed Sex and Gender Information Value Date Recorded Sex Assigned at Not on file Legal 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 SHEARING MACHINE FEEDER Gender Identity Not on file Sexual Orientation Not on file documented as of this encounter Plan of Treatment Not on file documented as of this encounter Visit Diagnoses Diagnosis Peripheral vascular disease, unspecified- Primary Other and unspecified hyperlipidemia Unspecified essential hypertension documented in this encounter Additional Health Concerns Infection Onset Date Last Indicated Resolved Time R/O COVID-19 01/26/2020 01/26/2020 01/28/2020 1:46 AM SHEARING MACHINE FEEDER documented as of this encounter Care Teams Exterminator Helper Termite Relationship Specialty Start Date End Date Yesenia Maria DO PCP - General Family Practice 04/18/20 07/14/20 documented as of this encounter
--- OUTSIDE RECORDS SUMMARY | 2025-02-18 20:08 | XMS_ITS | Encounter Summary ---
Author Organization [facility] Address [address] [place] [address] Care Team Providers Care Animal Doctor Name Role Phone Yesenia Maria DO Primary Care Provider [phone] Encounter Details Date Type Department Care Team (Latest Contact Info) Description 06/27/2004 Outpatient Historical [facility] Medicine [address] [place] [phone] Yuri Richter MD NO ADDRESS ON FILE BACKACHE NOS (Primary Dx) Social History Tobacco Use Types Packs/Day Years Used Date Smoking Tobacco: Never Assessed Sex and Gender Information Value Date Recorded Sex Assigned at Not on file Legal 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 ROOFER VINYL COATING Gender Identity Not on file Sexual Orientation Not on file documented as of this encounter Plan of Treatment Not on file documented as of this encounter Visit Diagnoses Diagnosis Backache, unspecified- Primary documented in this encounter Additional Health Concerns Infection Onset Date Last Indicated Resolved Time R/O COVID-19 01/26/2020 01/26/2020 01/28/2020 1:46 AM ROOFER VINYL COATING documented as of this encounter Care Teams Animal Doctor Relationship Specialty Start Date End Date Yesenia Maria DO PCP - General Family Practice 04/18/20 07/14/20 documented as of this encounter
--- OUTSIDE RECORDS SUMMARY | 2025-02-18 20:08 | XMS_ITS | Encounter Summary ---
Author Organization [facility] Address [address] [place] [address] Care Team Providers Care Superintendent Oil Well Services Name Role Phone Yesenia Maria DO Primary Care Provider [phone] Encounter Details Date Type Department Care Team (Late st Contact Info) Description 07/09/2004 Outpatient Historical [facility] 06 Non-Staff, Physician NO ADDRESS ON FILE Social History Tobacco Use Types Packs/Day Years Used Date Smoking Tobacco: Never Assessed Sex and Gender Information Value Date Recorded Sex Assigned at Not on file Legal 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 POTATO CHIP COOKER MACHINE Gender Identity Not on file Sexual Orientation [...] COM Fin al Result Performing Organization Address [facility] Phone Number INTERFACE SYSTEM Refer to clinic/hospital department * GLUCOSE LEVEL (07/09/2004 6:30 AM CDT) GLUCOSE 92 70 - 110 mg/dL INTERFACE SYSTEM 07/09/2004 6:30 AM CDT Physician Non-Staff CHEMISTRY ORDERABLES Final R esult Performing Organization Address [facility] Phone Number INTERFACE SYSTEM Refer [...] ORDERABLES Final R esult Performing Organization Address [facility] Phone Number INTERFACE SYSTEM Refer to clinic/hospital department documented in this encounter Visit Diagnoses Not on filedocumented in this encounter Additional Health Concerns Infection Onset Date Last Indicated Resolved Time R/O COVID-19 01/26/2020 01/26/2020 01/28/2020 1:46 AM POTATO CHIP COOKER MACHINE documented as of this encounter Care Teams Superintendent Oil Well Services Relationship Specialty Start Date End Date Yesenia Maria DO PCP - General Family Practice 04/18/20 07/14/20 documented as of this encounter
--- OUTSIDE RECORDS SUMMARY | 2025-02-18 20:08 | XMS_ITS | Encounter Summary ---
Author Organization [facility] Address [address] [place] [address] Care Team Providers Care Coat Ironer Hand Name Role Phone Yesenia Maria DO Primary Care Provider Encounter Details Date Type Department Care Team (Latest Contact Info) Description 04/21/2004 Outpatient Historical [facility] Medicine [address] [place] [phone] Yuri Richter MD NO ADDRESS ON FILE HYPERTENSION NOS (Primary Dx) Social History Tobacco Use Types Packs/Day Years Used Date Smoking Tobacco: Never Assessed Sex and Gender Information Value Date Recorded Sex Assigned at Not on file Legal 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 TRAINING PROJECT MANAGER Gender Identity Not on file Sexual Orientation Not on file documented as of this encounter Plan of Treatment Not on file documented as of this encounter Visit Diagnoses Diagnosis Unspecified essential hypertension- Primary documented in this encounter Additional Health Concerns Infection Onset Date Last Indicated Resolved Time R/O COVID-19 01/26/2020 01/26/2020 01/28/2020 1:46 AM TRAINING PROJECT MANAGER documented as of this encounter Care Teams Coat Ironer Hand Relationship Specialty Start Date End Date Yesenia Maria DO PCP - General Family Practice 04/18/20 07/14/20 documented as of this encounter
--- OUTSIDE RECORDS SUMMARY | 2025-02-18 20:08 | XMS_ITS | Encounter Summary ---
Author Organization [facility] Address [address] [place] [address] Care Team Providers Care Electrical Manager Name Role Phone Yesenia Maria DO Primary Care Provider [phone] Encounter Details Date Type Department Care Team (Latest Contact Info) Description 12/14/[address] [facility] Medicine [address] [place] [address] Yuri Richter MD NO ADDRESS ON FILE Pure hypercholesterolem (Primary Dx); HYPERTENSION NOS; ABN BLOOD CHEMISTRY NEC; SCREENING MAL NEOP-PROSTATE Social History Tobacco Use Types Packs/Day Years Used Date Smoking Tobacco: Never Assessed Sex and Gender Information Value Date Recorded Sex Assigned at Not on file Legal 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 RECORDS ASSOCIATE Gender Identity Not on file Sexual [...] R/O COVID-19 01/26/2020 01/26/2020 01/28/2020 1:46 AM RECORDS ASSOCIATE documented as of this encounter Care Teams Electrical Manager Relationship Specialty Start Date End Date Yesenia Maria DO PCP - General Family Practice 04/18/20 07/14/20 documented as of this encounter
--- OUTSIDE RECORDS SUMMARY | 2025-02-18 20:08 | XMS_ITS | Encounter Summary ---
Author Organization [facility] Address [address] [place] [address] Care Team Providers Care Grain Elevator Clerk Name Role Phone Yesenia Maria DO Primary Care Provider [phone] Encounter Details Date Type Department Care Team (Late st Contact Info) Description 03/19/2005 Outpatient Historical [facility] Medicine [address] [address] Panda Coates MD [address] [place] [phone] BACKACHE NOS (Primary Dx); CRAMP IN LIMB Social History Tobacco Use Types Packs/Day Years Used Date Smoking Tobacco: Never Assessed Sex and Gender Information Value Date Recorded Sex Assigned at Not on file Legal 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 PUBLICITY CONSULTANT Gender Identity Not on file Sexual Orientation Not on file documented as of this encounter Plan of Treatment Not on file documented as of this encounter Visit Diagnoses Diagnosis Backache, unspecified- Primary Cramp of limb documented in this encounter Additional Health Concerns Infection Onset Date Last Indicated Resolved Time R/O COVID-19 01/26/2020 01/26/2020 01/28/2020 1:46 AM PUBLICITY CONSULTANT documented as of this encounter Care Teams Grain Elevator Clerk Relationship Specialty Start Date End Date Yesenia Maria DO PCP - General Family Practice 04/18/20 07/14/20 documented as of this encounter
--- OUTSIDE RECORDS SUMMARY | 2025-02-18 20:08 | XMS_ITS | Encounter Summary ---
Author Organization [facility] Address [address] [place] [address] Care Team Providers Care Rn First Assistant Name Role Phone Yesenia Maria DO Primary Care Provider Encounter Details Date Type Department Care Team (Late st Contact Info) Description 04/10/2004 Outpatient Historical [facility] Medicine [address] [address] Panda Coates MD [address] [place] [phone] CELLULITIS OF HAND (Primary Dx) Social History Tobacco Use Types Packs/Day Years Used Date Smoking Tobacco: Never Assessed Sex and Gender Information Value Date Recorded Sex Assigned at Not on file Legal 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 TOBACCO CHECKOUT CLERK Gender Identity Not on file Sexual Orientation Not on file documented as of this encounter Plan of Treatment Not on file documented as of this encounter Visit Diagnoses Diagnosis Cellulitis and abscess of hand, except fingers and thumb- Primary documented in this encounter Additional Health Concerns Infection Onset Date Last Indicated Resolved Time R/O COVID-19 01/26/2020 01/26/2020 01/28/2020 1:46 AM TOBACCO CHECKOUT CLERK documented as of this encounter Care Teams Rn First Assistant Relationship Specialty Start Date End Date Yesenia Maria DO PCP - General Family Practice 04/18/20 07/14/20 documented as of this encounter
--- OUTSIDE RECORDS SUMMARY | 2025-02-18 20:08 | XMS_ITS | Encounter Summary ---
Author Organization [facility] Address [address] [place] [address] Care Team Providers Care Tester Equipment Name Role Phone Yesenia Maria DO Primary Care Provider [phone] Encounter Details Date Type Department Care Team (Latest Contact Info) Description 04/16/2004 Outpatient Historical [facility] Medicine [address] [place] [phone] Yuri Richter MD NO ADDRESS ON FILE SWELLING OF LIMB (Primary Dx) Social History Tobacco Use Types Packs/Day Years Used Date Smoking Tobacco: Never Assessed Sex and Gender Information Value Date Recorded Sex Assigned at Not on file Legal 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 DIGESTER COOK Gender Identity Not on file Sexual Orientation Not on file documented as of this encounter Plan of Treatment Not on file documented as of this encounter Visit Diagnoses Diagnosis Swelling of limb- Primary documented in this encounter Additional Health Concerns Infection Onset Date Last Indicated Resolved Time R/O COVID-19 01/26/2020 01/26/2020 01/28/2020 1:46 AM DIGESTER COOK documented as of this encounter Care Teams Tester Equipment Relationship Specialty Start Date End Date Yesenia Maria DO PCP - General Family Practice 04/18/20 07/14/20 documented as of this encounter
--- OUTSIDE RECORDS SUMMARY | 2025-02-18 20:08 | XMS_ITS | Encounter Summary ---
Author Organization [facility] Address [address] [place] [address] Care Team Providers Care Vocational Training Instructor Name Role Phone Yesenia Maria DO Primary Care Provider [phone] Encounter Details Date Type Department Care Team (Latest Contact Info) Description 05/03/2006 Outpatient [facility] Ear, Nose and Throat- [address] [place] [address] [place] [phone] Steve Eugene MD NO ADDRESS ON FILE Follow-Up Examination, Following Unspecified Surgery (Primary Dx) Social History Tobacco Use Types Packs/Day Years Used Date Smoking Tobacco: Never Assessed Sex and Gender Information Value Date Recorded Sex Assigned at Not on file Legal 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 RAFTER CUTTING MACHINE OPERATOR Gender Identity Not on file Sexual Orientation Not on file documented as of this encounter Plan of Treatment Not on file documented as of this encounter Visit Diagnoses Diagnosis Follow-up examination, following unspecified surgery- Primary documented in this encounter Additional Health Concerns Infection Onset Date Last Indicated Resolved Time R/O COVID-19 01/26/2020 01/26/2020 01/28/2020 1:46 AM RAFTER CUTTING MACHINE OPERATOR documented as of this encounter Care Teams Vocational Training Instructor Relationship Specialty Start Date End Date Yesenia Maria DO PCP - General Family Practice 04/18/20 07/14/20 documented as of this encounter
--- OUTSIDE RECORDS SUMMARY | 2025-02-18 20:08 | XMS_ITS | Encounter Summary ---
Author Organization [facility] Address [address] [place] [address] Care Team Providers Care Material Handling Crew Supervisor Name Role Phone Yesenia Maria DO Primary Care Provider [phone] Encounter Details Date Type Department Care Team (Late st Contact Info) Description 08/15/2006 Outpatient Historical [address] [place] [phone] Maya Shetty DO [address] [place] [address] [address] [place] [address] Unspecified Closed Fracture of Ankle (Primary Dx) Social History Tobacco Use Types Packs/Day Years Used Date Smoking Tobacco: Never Assessed Sex and Gender Information Value Date Recorded Sex Assigned at Not on file Legal 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 DATABASE ADMINISTRATION MANAGER Gender Identity Not on file Sexual Orientation Not on file documented as of this encounter Plan of Treatment Not on file documented as of this encounter Visit Diagnoses Diagnosis Unspecified closed fracture of ankle- Primary documented in this encounter Additional Health Concerns Infection Onset Date Last Indicated Resolved Time R/O COVID-19 01/26/2020 01/26/2020 01/28/2020 1:4 6 AM DATABASE ADMINISTRATION MANAGER documented as of this encounter Care Teams Material Handling Crew Supervisor Relationship Specialty Start Date End Date Yesenia Maria DO PCP - General Family Practice 04/18/20 07/14/20 documented as of this encounter
--- OUTSIDE RECORDS SUMMARY | 2025-02-18 20:08 | XMS_ITS | Encounter Summary ---
Author Organization [facility] Address [address] [place] [address] Care Team Providers Care Continuous Improvement Lead Name Role Phone Yesenia Maria DO Primary Care Provider [phone] Encounter Details Date Type Department Care Team (Latest Contact Info) Description 08/19/2006 Outpatient Historical [facility] Orthopedics[address] [place] [phone] Ajay Bustamante, DO [address] [place] [address] Unspecified Site of Ankle Sprain and Strain (Primary Dx) Social History Tobacco Use Types Packs/Day Years Used Date Smoking Tobacco: Never Assessed Sex and Gender Information Value Date Recorded Sex Assigned at Not on file Legal 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 ASSISTANT STORE MANAGER OPERATIONS Gender Identity Not on file Sexual Orientation Not on file documented as of this encounter Plan of Treatment Not on file documented as of this encounter Visit Diagnoses Diagnosis Sprain of ankle, unspecified site- Primary documented in this encounter Additional Health Concerns Infection Onset Date Last Indicated Resolved Time R/O COVID-19 01/26/2020 01/26/2020 01/28/2020 1:46 AM ASSISTANT STORE MANAGER OPERATIONS documented as of this encounter Care Teams Continuous Improvement Lead Relationship Specialty Start Date End Date Yesenia Maria DO PCP - General Family Practice 04/18/20 07/14/20 documented as of this encounter
--- OUTSIDE RECORDS SUMMARY | 2025-02-18 20:08 | XMS_ITS | Encounter Summary ---
Author Organization [facility] Address [address] [place] [address] Care Team Providers Care Rocket Propellant Plant Supervisor Name Role Phone Yesenia Maria DO Primary Care Provider [phone] Encounter Details Date Type Department Care Team (Latest Contact Info) Description 05/23/2003 Outpatient Historical [facility] Medicine [address] [place] [phone] Yuri Richter MD NO ADDRESS ON FILE FX ANKLE NOS-CLOSED (Primary Dx); HYPERTENSION NOS Social History Tobacco Use Types Packs/Day Years Used Date Smoking Tobacco: Never Assessed Sex and Gender Information Value Date Recorded Sex Assigned at Not on file Legal 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 FORMULA WEIGHER Gender Identity Not on file Sexual Orientation Not on file documented as of this encounter Plan of Treatment Not on file documented as of this encounter Visit Diagnoses Diagnosis Unspecified closed fracture of ankle- Primary Unspecified essential hypertension documented in this encounter Additional Health Concerns Infection Onset Date Last Indicated Resolved Time R/O COVID-19 01/26/2020 01/26/2020 01/28/2020 1:46 AM FORMULA WEIGHER documented as of this encounter Care Teams Rocket Propellant Plant Supervisor Relationship Specialty Start Date End Date Yesenia Maria DO PCP - General Family Practice 04/18/20 07/14/20 documented as of this encounter
--- OUTSIDE RECORDS SUMMARY | 2025-02-18 20:08 | XMS_ITS | Encounter Summary ---
Author Organization [facility] Address [address] [place] [address] Care Team Providers Care Transportation Specialist Name Role Phone Yesenia Maria DO Primary Care Provider [phone] Encounter Details Date Type Department Care Team (Latest Contact Info) Description 07/19/2006 Outpatient Historical [facility]- [address] [place] [address] [place] [phone] Steve Eugene MD NO ADDRESS ON FILE Chronic Rhinitis (Primary Dx); Unspecified Sinusitis (Chronic) Social History Tobacco Use Types Packs/Day Years Used Date Smoking Tobacco: Never Assessed Sex and Gender Information Value Date Recorded Sex Assigned at Not on file Legal 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 COUNTY RECORDS MANAGEMENT OFFICER Gender Identity Not on file Sexual Orientation Not on file documented as of this encounter Plan of Treatment Not on file documented as of this encounter Visit Diagnoses Diagnosis Chronic rhinitis- Primary Unspecified sinusitis (chronic) documented in this encounter Additional Health Concerns Infection Onset Date Last Indicated Resolved Time R/O COVID-19 01/26/2020 01/26/2020 01/28/2020 1:46 AM COUNTY RECORDS MANAGEMENT OFFICER documented as of this encounter Care Teams Transportation Specialist Relationship Specialty Start Date End Date Yesenia Maria DO PCP - General Family Practice 04/18/20 07/14/20 documented as of this encounter
--- OUTSIDE RECORDS SUMMARY | 2025-02-18 20:08 | XMS_ITS | Encounter Summary ---
Author Organization [facility] Address [address] [place] [address] Care Team Providers Care Paint Supervisor Name Role Phone Yesenia Maria DO Primary Care Provider [phone] Encounter Details Date Type Department Care Team (Latest Contact Info) Description 08/02/2006 Outpatient Historical [facility] [place] [address] [place] [phone] Heladio Perez MD NO ADDRESS ON FILE Other Dyspnea and Respiratory Abnormality (Primary Dx) Social History Tobacco Use Types Packs/Day Years Used Date Smoking Tobacco: Never Assessed Sex and Gender Information Value Date Recorded Sex Assigned at Not on file Legal 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 SUPPLIER QUALITY Gender Identity Not on file Sexual Orientation Not on file documented as of this encounter Plan of Treatment Not on file documented as of this encounter Visit Diagnoses Diagnosis Other dyspnea and respiratory abnormality- Primary documented in this encounter Additional Health Concerns Infection Onset Date Last Indicated Resolved Time R/O COVID-19 01/26/2020 01/26/2020 01/28/2020 1:46 AM SUPPLIER QUALITY documented as of this encounter Care Teams Paint Supervisor Relationship Specialty Start Date End Date Yesenia Maria DO PCP - General Family Practice 04/18/20 07/14/20 documented as of this encounter
--- OUTSIDE RECORDS SUMMARY | 2025-02-18 20:08 | XMS_ITS | Encounter Summary ---
Author Organization [facility] Address [address] [place] [address] Care Team Providers Care Associate Name Role Phone Yesenia Maria DO Primary Care Provider [phone] Encounter Details Date Type Department Care Team (Latest Contact Info) Description 08/28/2002 Outpatient Historical [facility] Medicine [address] [place] [phone] Yuri Richter MD NO ADDRESS ON FILE HYPERTENSION NOS (Primary Dx) Social History Tobacco Use Types Packs/Day Years Used Date Smoking Tobacco: Never Assessed Sex and Gender Information Value Date Recorded Sex Assigned at Not on file Legal 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 UPHOLSTERY INSTRUCTOR Gender Identity Not on file Sexual Orientation Not on file documented as of this encounter Plan of Treatment Not on file documented as of this encounter Visit Diagnoses Diagnosis Unspecified essential hypertension- Primary documented in this encounter Additional Health Concerns Infection Onset Date Last Indicated Resolved Time R/O COVID-19 01/26/2020 01/26/2020 01/28/2020 1:46 AM UPHOLSTERY INSTRUCTOR documented as of this encounter Care Teams Associate Relationship Specialty Start Date End Date Yesenia Maria DO PCP - General Family Practice 04/18/20 07/14/20 documented as of this encounter
--- OUTSIDE RECORDS SUMMARY | 2025-02-18 20:08 | XMS_ITS | Encounter Summary ---
Author Organization [facility] Address [address] [place] [address] Care Team Providers Care Information Technology Coordinator Name Role Phone Yesenia Maria DO Primary Care Provider [phone] Encounter Details Date Type Department Care Team (Latest Contact Info) Description 03/28/2003 Outpatient Historical [facility] Medicine [address] [place] [phone] Yuri Richter MD NO ADDRESS ON FILE OLD FB IN SOFT TISSUE (Primary Dx) Social History Tobacco Use Types Packs/Day Years Used Date Smoking Tobacco: Never Assessed Sex and Gender Information Value Date Recorded Sex Assigned at Not on file Legal 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 FUN HOUSE OPERATOR Gender Identity Not on file Sexual Orientation Not on file documented as of this encounter Plan of Treatment Not on file documented as of this encounter Visit Diagnoses Diagnosis Residual foreign body in soft tissue- Primary documented in this encounter Additional Health Concerns Infection Onset Date Last Indicated Resolved Time R/O COVID-19 01/26/2020 01/26/2020 01/28/2020 1:46 AM FUN HOUSE OPERATOR documented as of this encounter Care Teams Information Technology Coordinator Relationship Specialty Start Date End Date Yesenia Maria DO PCP - General Family Practice 04/18/20 07/14/20 documented as of this encounter
--- OUTSIDE RECORDS SUMMARY | 2025-02-18 20:08 | XMS_ITS | Encounter Summary ---
Author Organization [facility] Address [address] [place] [address] Care Team Providers Care Psychiatric Lpn Name Role Phone Yesenia Maria DO Primary Care Provider [phone] Encounter Details Date Type Department Care Team (Latest Contact Info) Description 10/27/2004 Outpatient Historical [facility] Medicine [address] [place] [phone] Yuri Richter MD NO ADDRESS ON FILE HYPERTENSION NOS (Primary Dx); Contusion face/scalp/nck Social History Tobacco Use Types Packs/Day Years Used Date Smoking Tobacco: Never Assessed Sex and Gender Information Value Date Recorded Sex Assigned at Not on file Legal 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 PHARMACIST AIDE Gender Identity Not on file Sexual [...] R/O COVID-19 01/26/2020 01/26/2020 01/28/2020 1:46 AM PHARMACIST AIDE documented as of this encounter Care Teams Psychiatric Lpn Relationship Specialty Start Date End Date Yesenia Maria DO PCP - General Family Practice 04/18/20 07/14/20 documented as of this encounter
--- OUTSIDE RECORDS SUMMARY | 2025-02-18 20:08 | XMS_ITS | Encounter Summary ---
Author Organization [facility] Address [address] [place] [address] Care Team Providers Care Air And Water Filler Name Role Phone Yesenia Maria DO Primary Care Provider [phone] Encounter Details Date Type Department Care Team (Late st Contact Info) Description 04/03/2004 Outpatient Historical [facility] Medicine [address] [address] Panda Coates MD [address] [place] [phone] CELLULITIS OF HAND (Primary Dx) Social History Tobacco Use Types Packs/Day Years Used Date Smoking Tobacco: Never Assessed Sex and Gender Information Value Date Recorded Sex Assigned at Not on file Legal 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 ORTHOTICS ASSISTANT Gender Identity Not on file Sexual Orientation Not on file documented as of this encounter Plan of Treatment Not on file documented as of this encounter Visit Diagnoses Diagnosis Cellulitis and abscess of hand, except fingers and thumb- Primary documented in this encounter Additional Health Concerns Infection Onset Date Last Indicated Resolved Time R/O COVID-19 01/26/2020 01/26/2020 01/28/2020 1:46 AM ORTHOTICS ASSISTANT documented as of this encounter Care Teams Air And Water Filler Relationship Specialty Start Date End Date Yesenia Maria DO PCP - General Family Practice 04/18/20 07/14/20 documented as of this encounter
--- OUTSIDE RECORDS SUMMARY | 2025-02-18 20:08 | XMS_ITS | Encounter Summary ---
Author Organization [facility] Address [address] [place] [address] Care Team Providers Care Fuel Island Attendant Name Role Phone Yesenia Maria DO Primary Care Provider [phone] Encounter Details Date Type Department Care Team (Latest Contact Info) Description 04/04/2003 Outpatient Historical [facility] Medicine [address] [place] [phone] Yuri Richter MD NO ADDRESS ON FILE ACUTE BRONCHITIS (Primary Dx) Social History Tobacco Use Types Packs/Day Years Used Date Smoking Tobacco: Never Assessed Sex and Gender Information Value Date Recorded Sex Assigned at Not on file Legal 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 TONGUE PRESSER Gender Identity Not on file Sexual Orientation Not on file documented as of this encounter Plan of Treatment Not on file documented as of this encounter Visit Diagnoses Diagnosis Acute bronchitis- Primary documented in this encounter Additional Health Concerns Infection Onset Date Last Indicated Resolved Time R/O COVID-19 01/26/2020 01/26/2020 01/28/2020 1:46 AM TONGUE PRESSER documented as of this encounter Care Teams Fuel Island Attendant Relationship Specialty Start Date End Date Yesenia Maria DO PCP - General Family Practice 04/18/20 07/14/20 documented as of this encounter
--- OUTSIDE RECORDS SUMMARY | 2025-02-18 20:08 | XMS_ITS | Encounter Summary ---
Author Organization [facility] Address [address] [place] [address] Care Team Providers Care Logging Supervisor Name Role Phone Yesenia Maria DO Primary Care Provider [phone] Encounter Details Date Type Department Care Team (Late st Contact Info) Description 04/07/2004 Outpatient Historical [facility] Medicine [address] [address] Panda Coates MD [address] [place] [phone] CELLULITIS OF HAND (Primary Dx) Social History Tobacco Use Types Packs/Day Years Used Date Smoking Tobacco: Never Assessed Sex and Gender Information Value Date Recorded Sex Assigned at Not on file Legal 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 FINISHING FRAME RUNNER Gender Identity Not on file Sexual Orientation Not on file documented as of this encounter Plan of Treatment Not on file documented as of this encounter Visit Diagnoses Diagnosis Cellulitis and abscess of hand, except fingers and thumb- Primary documented in this encounter Additional Health Concerns Infection Onset Date Last Indicated Resolved Time R/O COVID-19 01/26/2020 01/26/2020 01/28/2020 1:46 AM FINISHING FRAME RUNNER documented as of this encounter Care Teams Logging Supervisor Relationship Specialty Start Date End Date Yesenia Maria DO PCP - General Family Practice 04/18/20 07/14/20 documented as of this encounter
--- OUTSIDE RECORDS SUMMARY | 2025-02-18 20:08 | XMS_ITS | Encounter Summary ---
Author Organization [facility] Address [address] [place] [address] Care Team Providers Care Orthodontist Small Business Owner Name Role Phone Yesenia Maria DO Primary Care Provider [phone] Encounter Details Date Type Department Care Team (Latest Contact Info) Description 03/22/[address] [facility] Medicine [address] [place] [phone] Gregor Bro MD NO ADDRESS ON FILE Pain in limb (Primary Dx) Social History Tobacco Use Types Packs/Day Years Used Date Smoking Tobacco: Never Assessed Sex and Gender Information Value Date Recorded Sex Assigned at Not on file Legal 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 ULTRASONIC CLEANER Gender Identity Not on file Sexual Orientation Not on file documented as of this encounter Plan of Treatment Not on file documented as of this encounter Visit Diagnoses Diagnosis Pain in limb- Primary Pain in soft tissues of limb documented in this encounter Additional Health Concerns Infection Onset Date Last Indicated Resolved Time R/O COVID-19 01/26/2020 01/26/2020 01/28/2020 1:46 AM ULTRASONIC CLEANER documented as of this encounter Care Teams Orthodontist Small Business Owner Relationship Specialty Start Date End Date Yesenia Maria DO PCP - General Family Practice 04/18/20 07/14/20 documented as of this encounter
--- OUTSIDE RECORDS SUMMARY | 2025-02-18 20:08 | XMS_ITS | Encounter Summary ---
Author Organization [facility] Address [address] [place] [address] Care Team Providers Care Plaster Lather Name Role Phone Yesenia Maria DO Primary Care Provider [phone] Encounter Details Date Type Department Care Team (Latest Contact Info) Description 04/27/2005 Outpatient Historical [address] [place] [address] [place] [address] [place] [phone] Melly Jameson DO NO ADDRESS ON FILE STREP SORE THROAT (Primary Dx) Social History Tobacco Use Types Packs/Day Years Used Date Smoking Tobacco: Never Assessed Sex and Gender Information Value Date Recorded Sex Assigned at Not on file Legal 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 AIRWORTHINESS SAFETY INSPECTOR Gender Identity Not on file Sexual Orientation Not on file documented as of this encounter Plan of Treatment Not on file documented as of this encounter Visit Diagnoses Diagnosis Streptococcal sore throat- Primary documented in this encounter Additional Health Concerns Infection Onset Date Last Indicated Resolved Time R/O COVID-19 01/26/2020 01/26/2020 01/28/2020 1:46 AM AIRWORTHINESS SAFETY INSPECTOR documented as of this encounter Care Teams Plaster Lather Relationship Specialty Start Date End Date Yesenia Maria DO PCP - General Family Practice 04/18/20 07/14/20 documented as of this encounter
--- OUTSIDE RECORDS SUMMARY | 2025-02-18 20:08 | XMS_ITS | Encounter Summary ---
Author Organization [facility] Address [address] [place] [address] Care Team Providers Care Two Way Radio Technician Name Role Phone Yesenia Maria DO Primary Care Provider [phone] Encounter Details Date Type Department Care Team (Late st Contact Info) Description 10/06/2006 Outpatient Historical [facility] Orthopedics[address] [place] [phone] Jadyn Hair, PAIvaniaC [address] [place] [address] Unspecified Site of Ankle Sprain and Strain (Primary Dx) Social History Tobacco Use Types Packs/Day Years Used Date Smoking Tobacco: Never Assessed Sex and Gender Information Value Date Recorded Sex Assigned at Not on file Legal 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 DENTAL TECHNICIAN INSTRUCTOR Gender Identity Not on file Sexual Orientation Not on file documented as of this encounter Plan of Treatment Not on file documented as of this encounter Visit Diagnoses Diagnosis Sprain of ankle, unspecified site- Primary documented in this encounter Additional Health Concerns Infection Onset Date Last Indicated Resolved Time R/O COVID-19 01/26/2020 01/26/2020 01/28/2020 1:46 AM DENTAL TECHNICIAN INSTRUCTOR documented as of this encounter Care Teams Two Way Radio Technician Relationship Specialty Start Date End Date Yesenia Maria DO PCP - General Family Practice 04/18/20 07/14/20 documented as of this encounter
--- OUTSIDE RECORDS SUMMARY | 2025-02-18 20:08 | XMS_ITS | Encounter Summary ---
Author Organization [facility] Address [address] [place] [address] Care Team Providers Care Uniform Cap Operator Name Role Phone Yesenia Maria DO Primary Care Provider [phone] Encounter Details Date Type Department Care Team (Latest Contact Info) Description 08/02/2006 Outpatient Historical [facility] Pulmonology-[facility] [place] [address] [place] [phone] Heladio Perez MD NO ADDRESS ON FILE Other Dyspnea and Respiratory Abnormality (Primary Dx) Social History Tobacco Use Types Packs/Day Years Used Date Smoking Tobacco: Never Assessed Sex and Gender Information Value Date Recorded Sex Assigned at Not on file Legal 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 PAID SEARCH MARKETING ANALYST Gender Identity Not on file Sexual Orientation Not on file documented as of this encounter Plan of Treatment Not on file documented as of this encounter Visit Diagnoses Diagnosis Other dyspnea and respiratory abnormality- Primary documented in this encounter Additional Health Concerns Infection Onset Date Last Indicated Resolved Time R/O COVID-19 01/26/2020 01/26/2020 01/28/2020 1:46 AM PAID SEARCH MARKETING ANALYST documented as of this encounter Care Teams Uniform Cap Operator Relationship Specialty Start Date End Date Yesenia Maria DO PCP - General Family Practice 04/18/20 07/14/20 documented as of this encounter
--- OUTSIDE RECORDS SUMMARY | 2025-02-18 20:08 | XMS_ITS | Encounter Summary ---
Author Organization [facility] Address [address] [place] [address] Care Team Providers Care Code Clerk Name Role Phone Radu Dallas DO Primary Care Provider [phone] Encounter Details Date Type Department Care Team (Late Contact Info) Description 02/14/2025 Orders Only [address] [place] [phone] Torey Smith CMA Social History Tobacco Use Types Packs/Day Years Used Date Smoking Tobacco: Every Day Cigarettes 0.3 0.4 Started: 07/27/1979 Smokeless Tobacco: Never Comments:Quit smoking: less than [...] on file Legal Sex Male 1:33 AM APPLICATIONS PROCESSOR Gender Identity Not on file Sexual Orientation Not on file documented as of this encounter Plan of Treatment Upcoming Encounters Date Type Department Care Team (Late Contact Info) Description 07/04/2025 8:00 AM CDT Ancillary Procedure [facility]- [place] [id number] [place] [address] Luther Babin NP [address] [place] [address] 07/04/2025 8:30 AM CDT Ancillary Procedure [facility]- [place] [address] [place] [address] Luther Babin NP [address] [place] [address] 07/04/2025 9:30 AM CDT Office Visit [facility] Vascular Surgery [place] [address] [place] [address] Luther Babin NP [address] [place] [address] documented as of this encounter Goals Goal Patient Goal Type Associated Problems [...] Goal Care Plan Heart Failure Problem No Rauchwater, Arelis Ivanna, SOFTWARE ADMINISTRATOR Heart Failure Goal Care Plan Heart Failure [...] Goal Care Plan Heart Failure Problem No Galo, Chayo L, DELIVERY TRUCK DRIVER HEAVY Heart Failure Goal Care Plan Heart Failure Problem No Chayo [place], DELIVERY TRUCK DRIVER HEAVY Heart Failure Goal Care Plan Heart Failure Problem No Chayo [place], DELIVERY TRUCK DRIVER HEAVY Heart Failure Goal Care Plan Heart Failure Problem No Chayo [place], DELIVERY TRUCK DRIVER HEAVY Heart Failure Goal Care Plan Heart Failure Problem No Rauchwater, Arelis Ivanna, SOFTWARE ADMINISTRATOR Heart Failure Goal Care Plan Heart Failure Problem No Rauchwater, Arelis Ivanna, SOFTWARE ADMINISTRATOR Heart Failure Goal Care Plan Heart Failure Problem No Barriga, Mabel, DELIVERY TRUCK DRIVER HEAVY Heart Failure Goal Care Plan Heart Failure Problem No Barriga, Mabel, DELIVERY TRUCK DRIVER HEAVY Heart Failure Goal Care Plan Heart Failure Problem No Barriga, Mabel, DELIVERY TRUCK DRIVER HEAVY Heart Failure Goal Care Plan Heart Failure Problem No Ariane, Denise D, SOFTWARE ADMINISTRATOR Heart Failure Goal Care Plan Heart Failure Problem No Ariane, Denise D, SOFTWARE ADMINISTRATOR Heart Failure Goal Care Plan Heart Failure Problem No Ariane, Denise D, SOFTWARE ADMINISTRATOR Heart Failure Goal Care Plan Heart Failure Problem No [place], Denise D, SOFTWARE ADMINISTRATOR documented as of this encounter Visit Diagnoses Not on filedocumented in this encounter Additional Health Concerns Active Problems Noted Date [...] Failure Problem 03/27/2024 Heart Failure Problem 03/27/2024 documented as of this encounter Care Teams Code Clerk Relationship Specialty Start Date End Date Radu Dallas DO [address] [place] [address] [address] [place] [address] PCP - General Family Practice 10/13/24 documented as of this encounter
--- OUTSIDE RECORDS SUMMARY | 2025-02-18 20:08 | XMS_ITS | Encounter Summary ---
Author Organization [facility] Address [address] [place] [address] Care Team Providers Care Automatic Spinning Lathe Setter Name Role Phone Yesenia Maria DO Primary Care Provider [phone] Encounter Details Date Type Department Care Team (Latest Contact Info) Description 01/09/2003 Outpatient Historical [facility] Medicine [address] [place] [phone] Yuri Richter MD NO ADDRESS ON FILE Pure hypercholesterolem (Primary Dx); HYPERTENSION NOS Social History Tobacco Use Types Packs/Day Years Used Date Smoking Tobacco: Never Assessed Sex and Gender Information Value Date Recorded Sex Assigned at Not on file Legal 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 WEAPONS ELECTRICAL ENGINEERING OFFICER Gender Identity Not on file Sexual Orientation Not on file documented as of this encounter Plan of Treatment Not on file documented as of this encounter Visit Diagnoses Diagnosis Pure hypercholesterolem- Primary Pure hypercholesterolemia Unspecified essential hypertension documented in this encounter Additional Health Concerns Infection Onset Date Last Indicated Resolved Time R/O COVID-19 01/26/2020 01/26/2020 01/28/2020 1:46 AM WEAPONS ELECTRICAL ENGINEERING OFFICER documented as of this encounter Care Teams Automatic Spinning Lathe Setter Relationship Specialty Start Date End Date Yesenia Maria DO PCP - General Family Practice 04/18/20 07/14/20 documented as of this encounter
--- OUTSIDE RECORDS SUMMARY | 2025-02-18 20:08 | XMS_ITS | Encounter Summary ---
Author Organization [facility] Address [address] [place] [address] Care Team Providers Care Optical Mechanic Apprentice Name Role Phone Yesenia Maria DO Primary Care Provider [phone] Encounter Details Date Type Department Care Team (Latest Contact Info) Description 11/14/2003 Outpatient Historical [facility] Medicine [address] [place] [phone] Yuri Richter MD NO ADDRESS ON FILE ACUTE SINUSITIS NOS (Primary Dx) Social History Tobacco Use Types Packs/Day Years Used Date Smoking Tobacco: Never Assessed Sex and Gender Information Value Date Recorded Sex Assigned at Not on file Legal 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 SCAFFOLD WORKER Gender Identity Not on file Sexual Orientation Not on file documented as of this encounter Plan of Treatment Not on file documented as of this encounter Visit Diagnoses Diagnosis Acute sinusitis, unspecified- Primary documented in this encounter Additional Health Concerns Infection Onset Date Last Indicated Resolved Time R/O COVID-19 01/26/2020 01/26/2020 01/28/2020 1:46 AM SCAFFOLD WORKER documented as of this encounter Care Teams Optical Mechanic Apprentice Relationship Specialty Start Date End Date Yesenia Maria DO PCP - General Family Practice 04/18/20 07/14/20 documented as of this encounter
--- OUTSIDE RECORDS SUMMARY | 2025-02-18 20:08 | XMS_ITS | Encounter Summary ---
Author Organization [facility] Address [address] [place] [address] Care Team Providers Care Electrical Equipment Technician Name Role Phone Yesenia Maria DO Primary Care Provider [phone] Encounter Details Date Type Department Care Team (Latest Contact Info) Description 05/25/2006 Outpatient Historical [facility] Medicine [address] [place] [phone] Yuri Richter MD NO ADDRESS ON FILE Intestinal Infection due to Other Organism, NEC (Primary Dx); Unspecified Backache Social History Tobacco Use Types Packs/Day Years Used Date Smoking Tobacco: Never Assessed Sex and Gender Information Value Date Recorded Sex Assigned at Not on file Legal 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 ASSISTANT DESIGNER Gender Identity Not on file Sexual Orientation Not on file documented as of this encounter Plan of Treatment Not on file documented as of this encounter Visit Diagnoses Diagnosis Intestinal infection due to other organism, not elsewhere classified- Primary Backache, unspecified documented in this encounter Additional Health Concerns Infection Onset Date Last Indicated Resolved Time R/O COVID-19 01/26/2020 01/26/2020 01/28/2020 1:46 AM ASSISTANT DESIGNER documented as of this encounter Care Teams Electrical Equipment Technician Relationship Specialty Start Date End Date Yesenia Maria DO PCP - General Family Practice 04/18/20 07/14/20 documented as of this encounter
--- OUTSIDE RECORDS SUMMARY | 2025-02-18 20:08 | XMS_ITS | Encounter Summary ---
Author Organization [facility] Address [address] [place] [address] Care Team Providers Care Tanning Wheel Filler Name Role Phone Yesenia Maria DO Primary Care Provider [phone] Encounter Details Date Type Department Care Team (Latest Contact Info) Description 12/19/2002 Outpatient Historical [facility] Medicine [address] [place] [phone] Yuri Richter MD NO ADDRESS ON FILE DIABETES UNCOMPL ADULT-TYPE II (CMS/HCC) (Primary Dx); Pure hypercholesterolem; HYPERTENSION NOS Social History Tobacco Use Types Packs/Day Years Used Date Smoking Tobacco: Never Assessed Sex and Gender Information Value Date Recorded Sex Assigned at Not on file Legal 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 VALVE MECHANIC Gender Identity Not on file Sexual [...] R/O COVID-19 01/26/2020 01/26/2020 01/28/2020 1:46 AM VALVE MECHANIC documented as of this encounter Care Teams Tanning Wheel Filler Relationship Specialty Start Date End Date Yesenia Maria DO PCP - General Family Practice 04/18/20 07/14/20 documented as of this encounter
--- OUTSIDE RECORDS SUMMARY | 2025-02-18 20:08 | XMS_ITS | Encounter Summary ---
Author Organization [facility] Address [address] [place] [address] Care Team Providers Care Rn Transition Name Role Phone Yesenia Maria DO Primary Care Provider [phone] Encounter Details Date Type Department Care Team (Latest Contact Info) Description 03/06/2010 Outpatient Historical [facility] [address] [place] [address] Ajay Rodriguez MD NO ADDRESS ON FILE [...] on file Legal 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 UNDERGRADUATE INTERN Gender Identity Not on file Sexual Orientation Not on file documented as of this encounter Plan of Treatment Not on file documented as of this encounter Visit Diagnoses Diagnosis Disorders of sacrum- Primary documented in this encounter Additional Health Concerns Infection Onset Date Last Indicated Resolved Time R/O COVID-19 01/26/2020 01/26/2020 01/28/2020 1:46 AM UNDERGRADUATE INTERN documented as of this encounter Care Teams Rn Transition Relationship Specialty Start Date End Date Yesenia Maria DO PCP - General Family Practice 04/18/20 07/14/20 documented as of this encounter
--- OUTSIDE RECORDS SUMMARY | 2025-02-18 20:08 | XMS_ITS | Encounter Summary ---
Author Organization [facility] Address [address] [place] [address] Care Team Providers Care Bush And Vine Fruit Crop Farmer Name Role Phone Yesenia Maria DO Primary Care Provider [phone] Encounter Details Date Type Department Care Team (Latest Contact Info) Description 07/02/2004 Outpatient Historical [facility] Medicine [address] [place] [address] Yuri Richter MD NO ADDRESS ON FILE ASCVD (Primary Dx); DIABETES MELLITUS TYPE II-UNCOMPL (CMS/[facility]); Pure hypercholesterolem; BACKACHE NOS Social History Tobacco Use Types Packs/Day Years Used Date Smoking Tobacco: Never Assessed Sex and Gender Information Value Date Recorded Sex Assigned at Not on file Legal 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 DIVISION OPERATIONS SPECIALIST Gender Identity Not on file Sexual [...] R/O COVID-19 01/26/2020 01/26/2020 01/28/2020 1:46 AM DIVISION OPERATIONS SPECIALIST documented as of this encounter Care Teams Bush And Vine Fruit Crop Farmer Relationship Specialty Start Date End Date Yesenia Maria DO PCP - General Family Practice 04/18/20 07/14/20 documented as of this encounter
--- OUTSIDE RECORDS SUMMARY | 2025-02-18 20:08 | XMS_ITS | Encounter Summary ---
Author Organization [facility] Address [address] [place] [address] Care Team Providers Care Database Programmer Name Role Phone Yesenia Maria DO Primary Care Provider [phone] Encounter Details Date Type Department Care Team (Latest Contact Info) Description 07/05/2006 Outpatient Historical [facility] Medicine [address] [place] [phone] Yuri Richter MD NO ADDRESS ON FILE Pure Hypercholesterolem (Primary Dx); Unspecified Essential Hypertension; Unspecified Chest Pain; Other Abnormal Glucose Social History Tobacco Use Types Packs/Day Years Used Date Smoking Tobacco: Never Assessed Sex and Gender Information Value Date Recorded Sex Assigned at Not on file Legal 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 LICENSED PHARMACIST Gender Identity Not on file Sexual Orientation [...] R/O COVID-19 01/26/2020 01/26/2020 01/28/2020 1:46 AM LICENSED PHARMACIST documented as of this encounter Care Teams Database Programmer Relationship Specialty Start Date End Date Yesenia Maria DO PCP - General Family Practice 04/18/20 07/14/20 documented as of this encounter
--- OUTSIDE RECORDS SUMMARY | 2025-02-18 20:08 | XMS_ITS | Encounter Summary ---
Author Organization [facility] Address [address] [place] [address] Care Team Providers Care Shactor Helper Name Role Phone Yesenia Maria DO Primary Care Provider [phone] Encounter Details Date Type Department Care Team (Latest Contact Info) Description 11/10/2004 Outpatient Historical [facility] Medicine [address] [place] [phone] Gregor Bro MD NO ADDRESS ON FILE ACUTE BRONCHITIS (Primary Dx) Social History Tobacco Use Types Packs/Day Years Used Date Smoking Tobacco: Never Assessed Sex and Gender Information Value Date Recorded Sex Assigned at Not on file Legal 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 QUALITY ANALYST/TECHNICAL WRITER Gender Identity Not on file Sexual Orientation Not on file documented as of this encounter Plan of Treatment Not on file documented as of this encounter Visit Diagnoses Diagnosis Acute bronchitis- Primary documented in this encounter Additional Health Concerns Infection Onset Date Last Indicated Resolved Time R/O COVID-19 01/26/2020 01/26/2020 01/28/2020 1:46 AM QUALITY ANALYST/TECHNICAL WRITER documented as of this encounter Care Teams Shactor Helper Relationship Specialty Start Date End Date Yesenia Maria DO PCP - General Family Practice 04/18/20 07/14/20 documented as of this encounter
--- OUTSIDE RECORDS SUMMARY | 2025-02-18 20:08 | XMS_ITS | Encounter Summary ---
Author Organization [facility] Address [address] [place] [address] Care Team Providers Care Executive Casino Host Name Role Phone Yesenia Maria DO Primary Care Provider [phone] Encounter Details Date Type Department Care Team (Latest Contact Info) Description 07/22/2006 Outpatient Historical [facility] Optometry[address] [place] [address] Loyd Bacon, OD [address] [place] [address] Unspecified Astigmatism (Primary Dx); Myopia Social History Tobacco Use Types Packs/Day Years Used Date Smoking Tobacco: Never Assessed Sex and Gender Information Value Date Recorded Sex Assigned at Not on file Legal 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 SUPPORT ARCHITECT Gender Identity Not on file Sexual Orientation Not on file documented as of this encounter Plan of Treatment Not on file documented as of this encounter Visit Diagnoses Diagnosis Astigmatism, unspecified- Primary Myopia documented in this encounter Additional Health Concerns Infection Onset Date Last Indicated Resolved Time R/O COVID-19 01/26/2020 01/26/2020 01/28/2020 1:46 AM SUPPORT ARCHITECT documented as of this encounter Care Teams Executive Casino Host Relationship Specialty Start Date End Date Yesenia Maria DO PCP - General Family Practice 04/18/20 07/14/20 documented as of this encounter
--- OUTSIDE RECORDS SUMMARY | 2025-02-18 20:09 | XMS_ITS | Encounter Summary ---
Author Organization [facility] Address [address] [place] [address] Care Team Providers Care Plant Controls Specialist Name Role Phone MariaYesenia dawson Primary Care Provider [phone] Encounter Details Date Type Department Care Team (Latest Contact Info) Description 01/25/2009 Outpatient Historical [facility] [address] [place] [address] Ajay Bustamante, DO [address] [place] [address] Pain in Soft Tissues of [...] Legal 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 DIRECTOR OF EDUCATION Gender Identity Not on file Sexual [...] 01/26/2020 01/26/2020 01/28/2020 1:46 AM DIRECTOR OF EDUCATION documented as of this encounter Care Teams Plant Controls Specialist Relationship Specialty Start Date End Date Yesenia Maria DO PCP - General Family Practice 04/18/20 07/14/20 documented as of this encounter
--- OUTSIDE RECORDS SUMMARY | 2025-02-18 20:09 | XMS_ITS | Encounter Summary ---
Author Organization [facility] Address [address] [place] [address] Care Team Providers Care Garden Center Manager Name Role Phone Yesenia Maria DO Primary Care Provider [phone] Encounter Details Date Type Department Care Team (Latest Contact Info) Description 12/02/2004 Outpatient Historical [facility] [address] [place] [address] Heladio Perez MD NO ADDRESS ON FILE RESPIRATORY ABNORM NEC (Primary Dx) Social History Tobacco Use Types Packs/Day Years Used Date Smoking Tobacco: Never Assessed Sex and Gender Information Value Date Recorded Sex Assigned at Not on file Legal 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 ASSEMBLER GOLF WOOD HEAD Gender Identity Not on file Sexual Orientation [...] R/O COVID-19 01/26/2020 01/26/2020 01/28/2020 1:46 AM ASSEMBLER GOLF WOOD HEAD documented as of this encounter Care Teams Garden Center Manager Relationship Specialty Start Date End Date Yesenia Maria DO PCP - General Family Practice 04/18/20 07/14/20 documented as of this encounter
--- OUTSIDE RECORDS SUMMARY | 2025-02-18 20:09 | XMS_ITS | Encounter Summary ---
Author Organization [facility] Address [address] [place] [address] Care Team Providers Care Scouring Machine Tender Name Role Phone Yesenia Maria DO Primary Care Provider [phone] Encounter Details Date Type Department Care Team (Latest Contact Info) Description 04/10/2010 Outpatient Historical [facility] [address] [place] [address] Ajay Rodrgiuez MD NO ADDRESS ON FILE Thoracic or [...] on file Legal 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 METAL BONDING HELPER Gender Identity Not on file Sexual Orientation Not on file documented as of this encounter Plan of Treatment Not on file documented as of this encounter Visit Diagnoses Diagnosis Thoracic or lumbosacral neuritis or radiculitis, unspecified- Primary documented in this encounter Additional Health Concerns Infection Onset Date Last Indicated Resolved Time R/O COVID-19 01/26/2020 01/26/2020 01/28/2020 1:46 AM METAL BONDING HELPER documented as of this encounter Care Teams Scouring Machine Tender Relationship Specialty Start Date End Date Yesenia Maria DO PCP - General Family Practice 04/18/20 07/14/20 documented as of this encounter
--- OUTSIDE RECORDS SUMMARY | 2025-02-18 20:09 | XMS_ITS | Encounter Summary ---
Author Organization [facility] Address [address] [place] [address] Care Team Providers Care Flour Tester Name Role Phone Yesenia Maria DO Primary Care Provider [phone] Encounter Details Date Type Department Care Team (Latest Contact Info) Description 11/29/2006 Outpatient Historical [facility] Orthopedics[address] [place] [address] Ajay Bustamante, DO [address] [place] [address] Thoracic or Lumbosacral Neuritis or Radiculitis, Unspecified (Primary Dx); Sciatic Nerve Lesion Social History Tobacco Use Types Packs/Day Years Used Date Smoking Tobacco: Never Assessed Sex and Gender Information Value Date Recorded Sex Assigned at Not on file Legal Sex Male 2:36 AM MUSEUM ASSISTANT Gender Identity Not on file Sexual [...] R/O COVID-19 01/26/2020 01/26/2020 01/28/2020 1:46 AM MUSEUM ASSISTANT documented as of this encounter Care Teams Flour Tester Relationship Specialty Start Date End Date Yesenia Maria DO PCP - General Family Practice 04/18/20 07/14/20 documented as of this encounter
--- OUTSIDE RECORDS SUMMARY | 2025-02-18 20:09 | XMS_ITS | Encounter Summary ---
Author Organization [facility] Address [address] [place] [address] Care Team Providers Care Production Officer Name Role Phone Yesenia Maria DO Primary Care Provider [phone] Encounter Details Date Type Department Care Team (Late st Contact Info) Description 09/22/2007 Outpatient Historical [facility] [address] [place] [address] Miguel Hayden MD [address] [phone] Social History Tobacco Use Types Packs/Day Years Used Date Smoking Tobacco: Never Assessed Sex and Gender Information Value Date Recorded Sex Assigned at Not on file Legal Sex Male 2:36 AM CIGARETTE AND FILTER CHIEF INSPECTOR Gender Identity Not on file Sexual Orientation Not on file documented as of this encounter Plan of Treatment Not on file documented as of this encounter Visit Diagnoses Not on filedocumented in this encounter Additional Health Concerns Infection Onset Date Last Indicated Resolved Time R/O COVID-19 01/26/2020 01/26/2020 01/28/2020 1:46 AM CIGARETTE AND FILTER CHIEF INSPECTOR documented as of this encounter Care Teams Production Officer Relationship Specialty Start Date End Date Yesenia Maria DO PCP - General Family Practice 04/18/20 07/14/20 documented as of this encounter
--- OUTSIDE RECORDS SUMMARY | 2025-02-18 20:09 | XMS_ITS | Encounter Summary ---
Author Organization [facility] Address [address] [place] [address] Care Team Providers Care Bulk Clerk Name Role Phone Yesenia Maria DO Primary Care Provider Encounter Details Date Type Department Care Team (Latest Contact Info) Description 11/16/2008 Outpatient Historical [facility] [address] [place] [address] Ajay Bustamante DO [address] [place] [address] Other Joint Derangement, not Elsewhere [...] on file Legal Sex Male 2:36 AM SLEEPING BAG FILLER Gender Identity Not on file Sexual Orientation Not on file documented as of this encounter Plan of Treatment Not on file documented as of this encounter Visit Diagnoses Diagnosis Other joint derangement, not elsewhere classified, ankle and foot- Primary documented in this encounter Additional Health Concerns Infection Onset Date Last Indicated Resolved Time R/O COVID-19 01/26/2020 01/26/2020 01/28/2020 1:46 AM SLEEPING BAG FILLER documented as of this encounter Care Teams Bulk Clerk Relationship Specialty Start Date End Date Yesenia Maria DO PCP - General Family Practice 04/18/20 07/14/20 documented as of this encounter
--- OUTSIDE RECORDS SUMMARY | 2025-02-18 20:09 | XMS_ITS | Encounter Summary ---
Author Organization [facility] Address [address] [place] [address] Care Team Providers Care Computer Aide Name Role Phone Yesenia Maria DO Primary Care Provider [phone] Encounter Details Date Type Department Care Team (Late st Contact Info) Description 12/02/2004 Outpatient Historical [facility] Social History Tobacco Use Types Packs/Day Years Used Date Smoking Tobacco: Never Assessed Sex and Gender Information Value Date Recorded Sex Assigned at Not on file Legal Sex Male 2:36 AM HELP DESK MANAGER Gender Identity Not on file Sexual Orientation Not on file documented as of this encounter Plan of Treatment Not on file documented as of this encounter Visit Diagnoses Not on filedocumented in this encounter Additional Health Concerns Infection Onset Date Last Indicated Resolved Time R/O COVID-19 01/26/2020 01/26/2020 01/28/2020 1:46 AM HELP DESK MANAGER documented as of this encounter Care Teams Computer Aide Relationship Specialty Start Date End Date Yesenia Maria DO PCP - General Family Practice 04/18/20 07/14/20 documented as of this encounter
--- OUTSIDE RECORDS SUMMARY | 2025-02-18 20:09 | XMS_ITS | Encounter Summary ---
Author Organization [facility] Address [address] [place] [address] Care Team Providers Care Gun Repair Clerk Name Role Phone Yesenia Maria DO Primary Care Provider [phone] Encounter Details Date Type Department Care Team (Late st Contact Info) Description 02/15/2007 [facility] [address] [place] [phone] Jacqueline Thakkar MD [address] [phone] Social History Tobacco Use Types Packs/Day Years Used Date Smoking Tobacco: Never Assessed Sex and Gender Information Value Date Recorded Sex Assigned at Not on file Legal Sex Male 2:36 AM FULL STACK SOFTWARE DEVELOPER Gender Identity Not on file Sexual Orientation Not on file documented as of this encounter Plan of Treatment Not on file documented as of this encounter Visit Diagnoses Not on filedocumented in this encounter Additional Health Concerns Infection Onset Date Last Indicated Resolved Time R/O COVID-19 01/26/2020 01/26/2020 01/28/2020 1:46 AM FULL STACK SOFTWARE DEVELOPER documented as of this encounter Care Teams Gun Repair Clerk Relationship Specialty Start Date End Date Yesenia Maria DO PCP - General Family Practice 04/18/20 07/14/20 documented as of this encounter
--- OUTSIDE RECORDS SUMMARY | 2025-02-18 20:09 | XMS_ITS | Encounter Summary ---
Author Organization [facility] Address [address] [place] [address] Care Team Providers Care Clean Up Person Name Role Phone Yesenia Maria DO Primary Care Provider Encounter Details Date Type Department Care Team (Latest Contact Info) Description 11/01/2006 Outpatient Historical [facility] Medicine [address] [place] [phone] Yuri Richter MD NO ADDRESS ON FILE Unspecified Backache (Primary Dx) Social History Tobacco Use Types Packs/Day Years Used Date Smoking Tobacco: Never Assessed Sex and Gender Information Value Date Recorded Sex Assigned at Not on file Legal Sex Male 2:36 AM GLAZIER STRUCTURAL GLASS Gender Identity Not on file Sexual Orientation Not on file documented as of this encounter Plan of Treatment Not on file documented as of this encounter Visit Diagnoses Diagnosis Backache, unspecified- Primary documented in this encounter Additional Health Concerns Infection Onset Date Last Indicated Resolved Time R/O COVID-19 01/26/2020 01/26/2020 01/28/2020 1:46 AM GLAZIER STRUCTURAL GLASS documented as of this encounter Care Teams Clean Up Person Relationship Specialty Start Date End Date Yesenia Maria DO PCP - General Family Practice 04/18/20 07/14/20 documented as of this encounter
--- OUTSIDE RECORDS SUMMARY | 2025-02-18 20:09 | XMS_ITS | Encounter Summary ---
Author Organization [facility] Address [address] [place] [address] Care Team Providers Care Neurosurgeon Name Role Phone Yesenia Maria DO Primary Care Provider [phone] Encounter Details Date Type Department Care Team (Latest Contact Info) Description 11/28/2007 Outpatient Historical [facility] Pain Management Procedures [address] [place] [phone] Anibal Smyth Lumbosacral Spondylosis without Myelopathy; Degeneration of Lumbar or Lumbosacral Intervertebral Disc; Unspecified Essential Hypertension; Unspecified Asthma; Unspecified Arthropathy, Site Unspecified; Personal History of Allergy to Analgesic Agent Social History Tobacco Use Types Packs/Day Years Used Date Smoking Tobacco: Never Assessed Sex and Gender Information Value Date Recorded Sex Assigned at Not on file Legal Sex Male 2:36 AM VICE PRESIDENT FINANCIAL Gender Identity Not on file Sexual Orientation [...] 11/29/2007 9:49 AM CDT Finalized by interface [email or web address] utility. No report expected. Procedure Note 04/16/2008 Finalized by interface [email or web address] utility. No report expected. Anibal mSyth DIAGNOSTIC IMAGING ORDERABLES Fi nal Result documented in this encounter Visit Diagnoses Diagnosis Lumbosacral spondylosis without myelopathy Degeneration of lumbar or lumbosacral intervertebral disc Unspecified essential hypertension Unspecified asthma(493.90) Unspecified asthma Arthropathy, unspecified, site unspecified Personal history of allergy to analgesic agent documented in this encounter Additional Health Concerns Infection Onset Date Last Indicated Resolved Time R/O COVID-19 01/26/2020 01/26/2020 01/28/2020 1:46 AM VICE PRESIDENT FINANCIAL documented as of this encounter Care Teams Neurosurgeon Relationship Specialty Start Date End Date Yesenia Maria DO PCP - General Family Practice 04/18/20 07/14/20 documented as of this encounter
--- OUTSIDE RECORDS SUMMARY | 2025-02-18 20:09 | XMS_ITS | Encounter Summary ---
Author Organization [facility] Address [address] [place] [address] Care Team Providers Care Energy Economist Name Role Phone Yesenia Maria DO Primary Care Provider Encounter Details Date Type Department Care Team (Latest Contact Info) Description 05/10/2009 Outpatient Historical [facility] [address] [place] [address] Ajay Bustamante DO [address] [place] [address] Unspecified Ankle and Foot Joint [...] on file Legal Sex Male 2:36 AM LIFE SKILLS COORDINATOR Gender Identity Not on file Sexual Orientation Not on file documented as of this encounter Plan of Treatment Not on file documented as of this encounter Visit Diagnoses Diagnosis Unspecified ankle and foot joint derangement- Primary documented in this encounter Additional Health Concerns Infection Onset Date Last Indicated Resolved Time R/O COVID-19 01/26/2020 01/26/2020 01/28/2020 1:46 AM LIFE SKILLS COORDINATOR documented as of this encounter Care Teams Energy Economist Relationship Specialty Start Date End Date Yesenia Maria DO PCP - General Family Practice 04/18/20 07/14/20 documented as of this encounter
--- OUTSIDE RECORDS SUMMARY | 2025-02-18 20:09 | XMS_ITS | Encounter Summary ---
Author Organization [facility] Address [address] [place] [address] Care Team Providers Care Artificial Foliage Arranger Name Role Phone Yesenia Maria DO Primary Care Provider [phone] Encounter Details Date Type Department Care Team (Late st Contact Info) Description 04/28/2007 Outpatient Historical [facility] Pain Management- [address] [place] [phone] Ajay Rodriguez MD NO ADDRESS ON FILE Social History Tobacco Use Types Packs/Day Years Used Date Smoking Tobacco: Never Assessed Sex and Gender Information Value Date Recorded Sex Assigned at Not on file Legal Sex Male 2:36 AM UNIX ARCHITECT Gender Identity Not on file Sexual Orientation Not on file documented as of this encounter Plan of Treatment Not on file documented as of this encounter Visit Diagnoses Not on filedocumented in this encounter Additional Health Concerns Infection Onset Date Last Indicated Resolved Time R/O COVID-19 01/26/2020 01/26/2020 01/28/2020 1:46 AM UNIX ARCHITECT documented as of this encounter Care Teams Artificial Foliage Arranger Relationship Specialty Start Date End Date Yesenia Maria DO PCP - General Family Practice 04/18/20 07/14/20 documented as of this encounter
--- OUTSIDE RECORDS SUMMARY | 2025-02-18 20:09 | XMS_ITS | Encounter Summary ---
Author Organization [facility] Address [address] [place] [address] Care Team Providers Care Sports Apparel Internship Name Role Phone Yesenia Maria DO Primary Care Provider [phone] Encounter Details Date Type Department Care Team (Latest Contact Info) Description 11/18/2004 Outpatient Historical [facility] Medicine [address] [place] [phone] Gregor Bro MD NO ADDRESS ON FILE ASTHMA UNSPECIFIED (Primary Dx) Social History Tobacco Use Types Packs/Day Years Used Date Smoking Tobacco: Never Assessed Sex and Gender Information Value Date Recorded Sex Assigned at Not on file Legal Sex Male 2:36 AM MERCURY CRACKING TESTER Gender Identity Not on file Sexual Orientation Not on file documented as of this encounter Plan of Treatment Not on file documented as of this encounter Visit Diagnoses Diagnosis Unspecified asthma(493.90)- Primary Unspecified asthma documented in this encounter Additional Health Concerns Infection Onset Date Last Indicated Resolved Time R/O COVID-19 01/26/2020 01/26/2020 01/28/2020 1:46 AM MERCURY CRACKING TESTER documented as of this encounter Care Teams Sports Apparel Internship Relationship Specialty Start Date End Date Yesenia Maria DO PCP - General Family Practice 04/18/20 07/14/20 documented as of this encounter
--- OUTSIDE RECORDS SUMMARY | 2025-02-18 20:09 | XMS_ITS | Encounter Summary ---
Author Organization [facility] Address [address] [place] [address] Care Team Providers Care Child Daycare Worker Name Role Phone Yesenia Maria DO Primary Care Provider [phone] Encounter Details Date Type Department Care Team (Latest Contact Info) Description 11/08/2006 Outpatient Historical [facility] [place] [address] Ajay Bustamante, DO [address] [place] [address] Other Joint Derangement, not Elsewhere Classified, Ankle and Foot (Primary Dx) Social History Tobacco Use Types Packs/Day Years Used Date Smoking Tobacco: Never Assessed Sex and Gender Information Value Date Recorded Sex Assigned at Not on file Legal Sex Male 2:36 AM FIBER DESIGN ENGINEER Gender Identity Not on file Sexual Orientation Not on file documented as of this encounter Plan of Treatment Not on file documented as of this encounter Visit Diagnoses Diagnosis Other joint derangement, not elsewhere classified, ankle and foot- Primary documented in this encounter Additional Health Concerns Infection Onset Date Last Indicated Resolved Time R/O COVID-19 01/26/2020 01/26/2020 01/28/2020 1:46 AM FIBER DESIGN ENGINEER documented as of this encounter Care Teams Child Daycare Worker Relationship Specialty Start Date End Date Yesenia Maria DO PCP - General Family Practice 04/18/20 07/14/20 documented as of this encounter
--- OUTSIDE RECORDS SUMMARY | 2025-02-18 20:09 | XMS_ITS | Encounter Summary ---
Author Organization [facility] Address [address] [place] [address] Care Team Providers Care Drier Belt Conveyor Name Role Phone MariaYesenia dawson Primary Care Provider [phone] Encounter Details Date Type Department Care Team (Late st Contact Info) Description 11/22/2015 Ancillary Orders [facility] [place] [address] Ajay Bustamante, DO [address] [place] [address] Bilateral shoulder pain, unspecified chronicity [...] file Legal Sex Male 2:36 AM MANAGER MOLECULAR Gender Identity Not on file Sexual Orientation [...] spur. Grade 1 acromion. Ajay Bustamante D.O. [facility] CDM:bjw Ajay Bustamante DO DIAGNOSTIC IMAGING ORDERABLES Final Result documented in this encounter Visit Diagnoses Diagnosis Bilateral shoulder pain, unspecified chronicity- Primary documented in this encounter Additional Health Concerns Infection Onset Date Last Indicated Resolved Time R/O COVID-19 01/26/2020 01/26/2020 01/28/2020 1:46 AM MANAGER MOLECULAR documented as of this encounter Care Teams Drier Belt Conveyor Relationship Specialty Start Date End Date Yesenia Maria DO PCP - General Family Practice 04/18/20 07/14/20 documented as of this encounter
--- OUTSIDE RECORDS SUMMARY | 2025-02-18 20:09 | XMS_ITS | Encounter Summary ---
Author Organization [facility] Address [address] [place] [address] Care Team Providers Care Fast Food Attendant Name Role Phone Yesenia Maria DO Primary Care Provider [phone] Encounter Details Date Type Department Care Team (Late st Contact Info) Description 04/07/2007 Outpatient Historical [facility] Pain Management- [address] [place] [phone] Ajay Rodriguez MD NO ADDRESS ON FILE Social History Tobacco Use Types Packs/Day Years Used Date Smoking Tobacco: Never Assessed Sex and Gender Information Value Date Recorded Sex Assigned at Not on file Legal Sex Male 2:36 AM FIELD INTERVIEWER Gender Identity Not on file Sexual Orientation Not on file documented as of this encounter Plan of Treatment Not on file documented as of this encounter Visit Diagnoses Not on filedocumented in this encounter Additional Health Concerns Infection Onset Date Last Indicated Resolved Time R/O COVID-19 01/26/2020 01/26/2020 01/28/2020 1:46 AM FIELD INTERVIEWER documented as of this encounter Care Teams Fast Food Attendant Relationship Specialty Start Date End Date Yesenia Maria DO PCP - General Family Practice 04/18/20 07/14/20 documented as of this encounter
--- OUTSIDE RECORDS SUMMARY | 2025-02-18 20:09 | XMS_ITS | Encounter Summary ---
Author Organization [facility] Address [address] [place] [address] Care Team Providers Care Drop Pit Worker Name Role Phone Yesenia Maria DO Primary Care Provider [phone] Encounter Details Date Type Department Care Team (Late st Contact Info) Description 10/19/2007 Outpatient Historical [facility] DEFAULT DEPARTMENT Miguel Hayden MD [address] [phone] Social History Tobacco Use Types Packs/Day Years Used Date Smoking Tobacco: Never Assessed Sex and Gender Information Value Date Recorded Sex Assigned at Not on file Legal Sex Male 2:36 AM TELEPHONE MESSENGER Gender Identity Not on file Sexual Orientation Not on file documented as of this encounter Plan of Treatment Not on file documented as of this encounter Visit Diagnoses Not on filedocumented in this encounter Additional Health Concerns Infection Onset Date Last Indicated Resolved Time R/O COVID-19 01/26/2020 01/26/2020 01/28/2020 1:46 AM TELEPHONE MESSENGER documented as of this encounter Care Teams Drop Pit Worker Relationship Specialty Start Date End Date Yesenia Maria DO PCP - General Family Practice 04/18/20 07/14/20 documented as of this encounter
--- OUTSIDE RECORDS SUMMARY | 2025-02-18 20:09 | XMS_ITS | Encounter Summary ---
Author Organization [facility] Address [address] [place] [address] Care Team Providers Care Manager Student Services Name Role Phone Yesenia Maria DO Primary Care Provider [phone] Encounter Details Date Type Department Care Team (Late st Contact Info) Description 05/26/[address] [facility] Pain Management- [address] [place] [phone] Ajay Rodriguez MD NO ADDRESS ON FILE Social History Tobacco Use Types Packs/Day Years Used Date Smoking Tobacco: Never Assessed Sex and Gender Information Value Date Recorded Sex Assigned at Not on file Legal Sex Male 2:36 AM ACID LEVELER Gender Identity Not on file Sexual Orientation Not on file documented as of this encounter Plan of Treatment Not on file documented as of this encounter Visit Diagnoses Not on filedocumented in this encounter Additional Health Concerns Infection Onset Date Last Indicated Resolved Time R/O COVID-19 01/26/2020 01/26/2020 01/28/2020 1:46 AM ACID LEVELER documented as of this encounter Care Teams Manager Student Services Relationship Specialty Start Date End Date Yesenia Maria DO PCP - General Family Practice 04/18/20 07/14/20 documented as of this encounter
--- OUTSIDE RECORDS SUMMARY | 2025-02-18 20:09 | XMS_ITS | Encounter Summary ---
Author Organization [facility] Address [address] [place] [address] Care Team Providers Care Events Specialist Name Role Phone Yesenia Maria DO Primary Care Provider [phone] Encounter Details Date Type Department Care Team (Late st Contact Info) Description 06/09/2007 Outpatient Historical [facility] Pain Management- [address] [place] [phone] Ajay Rodriguez MD NO ADDRESS ON FILE Social History Tobacco Use Types Packs/Day Years Used Date Smoking Tobacco: Never Assessed Sex and Gender Information Value Date Recorded Sex Assigned at Not on file Legal Sex Male 2:36 AM RETAIL EVENT ASSISTANT Gender Identity Not on file Sexual Orientation Not on file documented as of this encounter Plan of Treatment Not on file documented as of this encounter Visit Diagnoses Not on filedocumented in this encounter Additional Health Concerns Infection Onset Date Last Indicated Resolved Time R/O COVID-19 01/26/2020 01/26/2020 01/28/2020 1:46 AM RETAIL EVENT ASSISTANT documented as of this encounter Care Teams Events Specialist Relationship Specialty Start Date End Date Yesenia Maria DO PCP - General Family Practice 04/18/20 07/14/20 documented as of this encounter
--- OUTSIDE RECORDS SUMMARY | 2025-02-18 20:09 | XMS_ITS | Encounter Summary ---
Author Organization [facility] Address [address] [place] [address] Care Team Providers Care Tax Attorney Name Role Phone Yesenia Maria DO Primary Care Provider [phone] Encounter Details Date Type Department Care Team (Latest Contact Info) Description 12/12/2007 Outpatient [facility] [address] [place] [address] [place] [address] [place] [facility] [address] [place] [address] Miguel Hayden MD [address] [place] [address] [place] [address] Lumbago; Unspecified Essential Hypertension; Unspecified Arthropathy, Site Unspecified; Unspecified Asthma Social History Tobacco Use Types Packs/Day Years Used Date Smoking Tobacco: Never Assessed Sex and Gender Information Value Date Recorded Sex Assigned at Not on file Legal Sex Male 2:36 AM CREW MANAGER Gender Identity Not on file Sexual Orientation Not on file documented as of this encounter Plan of Treatment Not on file documented as of this encounter Visit Diagnoses Diagnosis Lumbago Unspecified essential hypertension Arthropathy, unspecified, site unspecified Unspecified asthma(493.90) Unspecified asthma documented in this encounter Additional Health Concerns Infection Onset Date Last Indicated Resolved Time R/O COVID-19 01/26/2020 01/26/2020 01/28/2020 1:46 AM CREW MANAGER documented as of this encounter Care Teams Tax Attorney Relationship Specialty Start Date End Date Yesenia Maria DO PCP - General Family Practice 04/18/20 07/14/20 documented as of this encounter
--- OUTSIDE RECORDS SUMMARY | 2025-02-18 20:09 | XMS_ITS | Encounter Summary ---
Author Organization [facility] Address [address] [place] [address] Care Team Providers Care Delivery Representative Name Role Phone Yesenia Maria DO Primary Care Provider [phone] Encounter Details Date Type Department Care Team (Latest Contact Info) Description 10/12/[address] [facility] [address] [place] [address] [facility] [address] [place] [address] Miguel Hayden MD [address] [place] [address] [place] [address] Pain in Joint, Shoulder Region; Pain in Soft Tissues of Limb Social History Tobacco Use Types Packs/Day Years Used Date Smoking Tobacco: Never Assessed Sex and Gender Information Value Date Recorded Sex Assigned at Not on file Legal Sex Male 2:36 AM HAND BRUSH FILLER Gender Identity Not on file Sexual Orientation Not on file documented as of this encounter Plan of Treatment Not on file documented as of this encounter Visit Diagnoses Diagnosis Pain in joint, shoulder region Pain in limb documented in this encounter Additional Health Concerns Infection Onset Date Last Indicated Resolved Time R/O COVID-19 01/26/2020 01/26/2020 01/28/2020 1:46 AM HAND BRUSH FILLER documented as of this encounter Care Teams Delivery Representative Relationship Specialty Start Date End Date Yesenia Maria DO PCP - General Family Practice 04/18/20 07/14/20 documented as of this encounter
--- OUTSIDE RECORDS SUMMARY | 2025-02-18 20:09 | XMS_ITS | Encounter Summary ---
Author Organization [facility] Address [address] [place] [address] Care Team Providers Care Marble Cutter Operator Name Role Phone Yesenia Maria DO Primary Care Provider [phone] Encounter Details Date Type Department Care Team (Latest Contact Info) Description 12/12/2004 Outpatient Historical [facility] Medicine [address] [place] [address] Gregor Bro MD NO ADDRESS ON FILE CHRONIC AIRWAY OBSTRUCTION NEC ([facility]) (Primary Dx); Vaccine for influenza; VACCINE FOR STREP PNEUMONIAE Social History Tobacco Use Types Packs/Day Years Used Date Smoking Tobacco: Never Assessed Sex and Gender Information Value Date Recorded Sex Assigned at Not on file Legal 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
--- OUTSIDE RECORDS SUMMARY | 2025-02-18 20:09 | XMS_ITS | Encounter Summary ---
Author Organization [facility] Address [address] [place] [address] Care Team Providers Care Candle Molder Name Role Phone Yesenia Maria DO Primary Care Provider [phone] Encounter Details Date Type Department Care Team (Latest Contact Info) Description 11/20/2004 Outpatient Historical [facility] Internal Medicine and Pediatrics-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 ADJUSTER Gender Identity Not on file Sexual Orientation Not on file documented as of this encounter Plan of Treatment Not on file documented as of this encounter Visit Diagnoses Diagnosis Other dyspnea and respiratory abnormality- Primary documented in this encounter Additional Health Concerns Infection Onset Date Last Indicated Resolved Time R/O COVID-19 01/26/2020 01/26/2020 01/28/2020 1:46 AM INSTRUMENT ADJUSTER documented as of this encounter Care Teams Candle Molder Relationship Specialty Start Date End Date Yesenia Maria DO PCP - General Family Practice 04/18/20 07/14/20 documented as of this encounter
--- OUTSIDE RECORDS SUMMARY | 2025-02-18 20:09 | XMS_ITS | Encounter Summary ---
Author Organization [employer] [facility] Address [address] [place] [address] Care Team Providers Care Smooth Stucco Resurfacer Name Role Phone Yesenia Maria DO Primary Care Provider Encounter Details Date Type Department Care Team (Latest Contact Info) Description 12/19/2008 Outpatient Historical [facility] [address] [place] [address] Conversion, History NO ADDRESS ON FILE Unspecified [...] on file Legal Sex Male 2:36 AM BOTTOM WHEELER Gender Identity Not on file Sexual Orientation Not on file documented as of this encounter Plan of Treatment Not on file documented as of this encounter Visit Diagnoses Diagnosis Unspecified general medical examination- Primary documented in this encounter Additional Health Concerns Infection Onset Date Last Indicated Resolved Time R/O COVID-19 01/26/2020 01/26/2020 01/28/2020 1:46 AM BOTTOM WHEELER documented as of this encounter Care Teams Smooth Stucco Resurfacer Relationship Specialty Start Date End Date Yesenia Maria DO PCP - General Family Practice 04/18/20 07/14/20 documented as of this encounter
--- OUTSIDE RECORDS SUMMARY | 2025-02-18 20:09 | XMS_ITS | Encounter Summary ---
Author Organization [facility] Address [address] [place] [address] Care Team Providers Care Advertising Campaign Manager Name Role Phone Yesenia Maria DO Primary Care Provider Encounter Details Date Type Department Care Team (Late st Contact Info) Description 05/06/2007 Outpatient Historical [facility] Medicine [address] [place] [phone] Yuri Richter MD NO ADDRESS ON FILE Social History Tobacco Use Types Packs/Day Years Used Date Smoking Tobacco: Never Assessed Sex and Gender Information Value Date Recorded Sex Assigned at Not on file Legal Sex Male 2:36 AM DIRECTOR OF REVENUE Gender Identity Not on file Sexual Orientation Not on file documented as of this encounter Plan of Treatment Not on file documented as of this encounter Visit Diagnoses Not on filedocumented in this encounter Additional Health Concerns Infection Onset Date Last Indicated Resolved Time R/O COVID-19 01/26/2020 01/26/2020 01/28/2020 1:46 AM DIRECTOR OF REVENUE documented as of this encounter Care Teams Advertising Campaign Manager Relationship Specialty Start Date End Date Yesenia Maria DO PCP - General Family Practice 04/18/20 07/14/20 documented as of this encounter
--- OUTSIDE RECORDS SUMMARY | 2025-02-18 20:09 | XMS_ITS | Encounter Summary ---
Author Organization [facility] Address [address] [place] [address] Care Team Providers Care Production Line Mechanic Name Role Phone Yesenia Maria DO Primary Care Provider [phone] Encounter Details Date Type Department Care Team (Latest Contact Info) Description 09/14/2007 Outpatient [facility] [address] [place] [address] [facility] [address] [place] [address] Miguel Hayden MD [address] [facility] [address] [place] [address] Obesity, Unspecified; Degeneration of Lumbar or Lumbosacral Intervertebral Disc; Displacement of Lumbar Intervertebral Disc without Myelopathy; Unspecified Essential Hypertension; Unspecified Asthma; Unspecified Arthropathy, Site Unspecified Social History Tobacco Use Types Packs/Day Years Used Date Smoking Tobacco: Never Assessed Sex and Gender Information Value Date Recorded Sex Assigned at Not on file Legal Sex Male 2:36 AM PLATEN PRESS FEEDER Gender Identity Not on file Sexual [...] R/O COVID-19 01/26/2020 01/26/2020 01/28/2020 1:46 AM PLATEN PRESS FEEDER documented as of this encounter Care Teams Production Line Mechanic Relationship Specialty Start Date End Date Yesenia Maria DO PCP - General Family Practice 04/18/20 07/14/20 documented as of this encounter
--- OUTSIDE RECORDS SUMMARY | 2025-02-18 20:09 | XMS_ITS | Encounter Summary ---
Author Organization [facility] Address [address] [place] [address] Care Team Providers Care Carbon Brusher Assembler Name Role Phone Yesenia Maria DO Primary Care Provider [phone] Encounter Details Date Type Department Care Team (Late st Contact Info) Description 01/05/2005 Outpatient Historical [address] [place] [id number] [place] [address] [place] [address] SPRAIN ELBOW/FOREARM NOS (Primary Dx) Social History Tobacco Use Types Packs/Day Years Used Date Smoking Tobacco: Never Assessed Sex and Gender Information Value Date Recorded Sex Assigned at Not on file Legal Sex Male 2:36 AM HOUSE CALLS NURSE Gender Identity Not on file Sexual Orientation Not on file documented as of this encounter Plan of Treatment Not on file documented as of this encounter Visit Diagnoses Diagnosis Sprain and strain of unspecified site of elbow and forearm- Primary documented in this encounter Additional Health Concerns Infection Onset Date Last Indicated Resolved Time R/O COVID-19 01/26/2020 01/26/2020 01/28/2020 1:46 AM HOUSE CALLS NURSE documented as of this encounter Care Teams Carbon Brusher Assembler Relationship Specialty Start Date End Date Yesenia Maria DO PCP - General Family Practice 04/18/20 07/14/20 documented as of this encounter
--- OUTSIDE RECORDS SUMMARY | 2025-02-18 20:09 | XMS_ITS | Encounter Summary ---
Author Organization [facility] Address [address] [place] [address] Care Team Providers Care Production Line Solderer Name Role Phone Yesenia Maria DO Primary Care Provider [phone] Encounter Details Date Type Department Care Team (Late st Contact Info) Description 12/22/2007 Outpatient Historical [facility] DEFAULT DEPARTMENT Miguel Hayden MD [address] [id number] Social History Tobacco Use Types Packs/Day Years Used Date Smoking Tobacco: Never Assessed Sex and Gender Information Value Date Recorded Sex Assigned at Not on file Legal Sex Male 2:36 AM HOG RINGER Gender Identity Not on file Sexual Orientation Not on file documented as of this encounter Plan of Treatment Not on file documented as of this encounter Visit Diagnoses Not on filedocumented in this encounter Additional Health Concerns Infection Onset Date Last Indicated Resolved Time R/O COVID-19 01/26/2020 01/26/2020 01/28/2020 1:4 6 AM HOG RINGER documented as of this encounter Care Teams Production Line Solderer Relationship Specialty Start Date End Date Yesenia Maria DO PCP - General Family Practice 04/18/20 07/14/20 documented as of this encounter
--- OUTSIDE RECORDS SUMMARY | 2025-02-18 20:09 | XMS_ITS | Encounter Summary ---
Author Organization [facility] Address [address] [place] [address] Care Team Providers Care Cane Piler Name Role Phone Yesenia Maria DO Primary Care Provider [phone] Encounter Details Date Type Department Care Team (Latest Contact Info) Description 02/16/2008 Outpatient Historical [facility] [address] [facility] [address] [place] [address] Abdifatah De La Fuente PA [address] [address] Miguel Hayden MD [address] [phone] Lumbago; Unspecified Essential Hypertension; Unspecified Arthropathy, Site Unspecified; Unspecified Asthma Social History Tobacco Use Types Packs/Day Years Used Date Smoking Tobacco: Never Assessed Sex and Gender Information Value Date Recorded Sex Assigned at Not on file Legal Sex Male 2:36 AM UNDERCOVER OPERATOR Gender Identity Not on file Sexual Orientation Not on file documented as of this encounter Plan of Treatment Not on file documented as of this encounter Visit Diagnoses Diagnosis Lumbago Unspecified essential hypertension Arthropathy, unspecified, site unspecified Unspecified asthma(493.90) Unspecified asthma documented in this encounter Additional Health Concerns Infection Onset Date Last Indicated Resolved Time R/O COVID-19 01/26/2020 01/26/2020 01/28/2020 1:46 AM UNDERCOVER OPERATOR documented as of this encounter Care Teams Cane Piler Relationship Specialty Start Date End Date Yesenia Maria DO PCP - General Family Practice 04/18/20 07/14/20 documented as of this encounter
--- OUTSIDE RECORDS SUMMARY | 2025-02-18 20:09 | XMS_ITS | Clinical Summary ---
Author Organization [facility] Danica tone Address [address] [place] [address] Care Team Providers Care Manager Recruitment Name Role Phone Katerin Dallas DO Primary Care Provider [phone] Allergies Active Allergy Reactions Criticality Noted Date Comments Codeine Nausea and Vomiting Low 04/13/2008 Morphine Rash Low 06/06/2018 Medications diabetic shoes with insertsIndicati ons:Type 2 diabetes mellitus with hyperglycemia, with long-term current use of insulin ([facility]),Type 2 diabetes mellitus with diabetic peripheral angiopathy without gangrene, with long-term current use of insulin ([facility]),Callu s of foot Length of Need: 99 months. Patient has diabetes mellitus and one of the following: history of pre-ulcerative callus Patient has diabetes mellitus. Patient is being treated under comprehensive plan for diabetes and the patient needs special shoes because of diabetes. Dispense 1/ year shoe and 3/year inserts. 1 Each 023 Active hydrOXYzine HCL (ATARAX) 25 mg tablet TAKE 1 TABLET BY MOUTH THREE TIMES DAILY NEEDED FOR ITCHING 180 Tablet 5 023 Active Blood-Glucose Meter,Continuou s (Dexcom G6 Graphic Designer)Indica tions:Type 2 diabetes mellitus with hyperglycemia, with long-term current use of insulin ([facility]) Use to monitor blood glucose continuously throughout the day. 1 Each 023 Active Blood-Glucose Transmitter (Dexcom G6 Transmitter) DeviceIndicatio ns:Type 2 diabetes mellitus with hyperglycemia, with long-term current use of insulin (CMS/HCC) Fasten on top of the sensor to wirelessly send data to the event designer. Must be changed every 3 months. 1 Each 3 023 Active Blood-Glucose Sensor (Dexcom G6 Sensor) DeviceIndicatio ns:Type 2 diabetes mellitus with hyperglycemia, with long-term current use of insulin (CMS/HCC) Discreetly worn under clothing to measure glucose levels just underneath the skin. Must change sensor every 10 days. 1 Each 12 023 Active sildenafiL, pulm.hypertensi on, (REVATIO) 20 mg Tablet TAKE 3-5 TABLETS BY MOUTH ONCE DAILY NEEDED 30 Tablet 3 024 Active cyclobenzaprine (FLEXERIL) 5 mg Tablet take 1 tablet by mouth at night Active fluticasone propionate (FLONASE) 50 mcg/spray [place], Suspension nasal inhaler Administer 2 Sprays in each nostril daily. 16 Gram 11 024 Active metFORMIN (GLUCOPHAGE) 1,000 mg tabletIndicatio ns:Type 2 diabetes mellitus with diabetic peripheral angiopathy without gangrene, with long-term current use of insulin (CMS/HCC) take 1 tablet by mouth twice daily with meals 200 Tablet Active HYDROcodone-sana taminophen (NORCO) 5-325 mg tabletIndicatio ns:Status post coronary artery bypass graft Take 1 Tablet by mouth every 4 hours as needed for Pain. Max Daily Amount: 6 Tablets 20 Tablet Active Blood Pressure Monitor KitIndications: Encounter for preventative adult health care examination USE TO CHECK BLOOD PRESSURE DAILY 1 Kit Active metoprolol tartrate (LOPRESSOR) 25 mg tablet Take 1 Tablet (25 mg) by mouth 2 times daily. 60 Tablet 3 024 Active empagliflozin (Jardiance) 10 mg tablet Take 1 Tablet (10 mg) by mouth daily in the morning. 100 Tablet 3 Active Additional Information Patient not taking.Reported on 10/13/2024 aspirin (AIDA CHEWABLE) 81 mg Tablet, Chewable Take 1 Tablet (81 mg) by mouth daily with breakfast. 90 Tablet 5 Active insulin lispro (HumaLOG,ADMELO G) 100 unit/mL pen syringe Inject 0-12 Units by subcutaneous injection 3 times daily with meals. 15 mL 3 024 Active Insulin [place], Disposable, (BD Ultra-Fine Mini Pen Needle) 31 gauge x 3/16 NeedleIndicatio ns:Type 2 diabetes mellitus with hyperglycemia, with long-term current use of insulin ([facility]) USE DIRECTED WITH VICTOZA AND TRESIBA DAILY 200 Each 2 024 Active acetaminophen (TYLENOL) 325 mg tablet Take 2 Tablets (650 mg) by mouth every 6 hours as needed for Other (See Comment) (See admin instructions). 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 90 Tablet 3 025 Active hydroCHLOROthia zide (MICROZIDE) 12.5 mg capsuleIndicati ons:Essential hypertension Take 1 capsule by mouth once daily 90 Capsule 025 Active Additional Information Patient not taking.Reported on 10/13/2024 spironolactone (ALDACTONE) 25 mg tablet Take 1 Tablet by mouth daily. 025 Active Entresto 24-26 mg Tablet Take 1 Tablet by mouth 2 times daily. 025 Active insulin aspart U-100 (NovoLOG) 100 unit/mL pen syringe Inject by subcutaneous injection 4 times daily with meals and at bedtime. 025 Active glimepiride (AMARYL) 4 mg tablet Take 1 Tablet (4 mg) by mouth daily. 100 Tablet 3 025 Active pantoprazole (PROTONIX) 20 mg Tablet, Delayed Release (E.C.)Indicatio ns:Gastroesopha geal reflux disease without esophagitis Take 1 tablet by mouth once daily 90 Tablet 1 025 Active cetirizine (ZyrTEC) 10 mg tabletIndicatio ns:Allergic rhinitis, unspecified seasonality, unspecified trigger Take 1 Tablet (10 mg) by mouth daily. 100 Tablet 3 025 Active Tresiba FlexTouch U-100 100 unit/mL (3 mL) pen syringeIndicati ons:Type 2 diabetes mellitus with hyperglycemia, with long-term current use of insulin ([facility]),Type 2 diabetes mellitus with diabetic peripheral angiopathy without gangrene, with long-term current use of insulin ([facility]) Inject 35 Units by subcutaneous injection daily at bedtime. INJECT 35 UNITS SUBCUTANEOUSLY ONCE DAILY AT BEDTIME 30 mL 1 025 Active Ozempic 1 mg/dose (4 mg/3 mL) Pen Injector INJECT 1MG SUBCUTANEOUSLY ONCE A WEEK 3 mL 025 Active atorvastatin (LIPITOR) 80 mg tablet Take 1 Tablet (80 mg) by mouth daily at bedtime. 30 Tablet 1 025 Active atorvastatin (LIPITOR) 80 mg tablet Take 1 Tablet (80 mg) by mouth daily at bedtime. 30 Tablet 1 025 2024 Discontinued(R eorder) Ozempic 1 mg/dose (4 mg/3 mL) Pen Injector INJECT 1MG SUBCUTANEOUSLY ONCE A WEEK 3 mL 025 2024 Discontinued Active Problems Problem Noted Date Diagnosed Date S/P carotid endarterectomy 04/12/2024 Stenosis of right carotid artery 04/11/2024 Postoperative hypotension 04/11/2024 History of right-sided carotid endarterectomy Chronic heart failure with r educed ejection fraction (HFrEF, <= 40%) 04/11/2024 Generalized anxiety disorder 03/13/2024 Status post coronary artery bypass graft 024 Status post ligation of left atrial appendage Coronary artery disease of n ative artery of [place] heart with stable angina pectoris 02/02/2024 Gastroesophageal reflux disease without esophagi tis 09/27/2023 Intracranial atherosclerosis distal vertebral and proximal basilar [...] with long-term current use of insulin 07/05/2009 Assessment & Plan (11/24/2024 5:17 PM CDT): Well controlled, Adequately controlled given co-morbid conditions, age, etc., and Improving. Continue current plan of care. Continue current medications. Check appropriate laboratory studies. Will continue ozempic 1mg subq weekly Continue metformin 1000mg po bid Continue glimiperide 4mg po qd Can stop use of humalog at this time Continue tresiba 100 Mixed hyperlipidemia 01/04/2009 Lumbar radiculopathy 09/28/2008 Overview (07/11/2020): Acute right L4 denervation noted on 02-26-10 EMG S/P lumbar fusion 09/28/2008 Overview (07/11/2020): L5-S1 decompression/fusion L4-5 decompression/fusion June 2010 CTS (carpal tunnel syndrome) 09/20/2008 Overview (07/11/2020): Bilateral S/p left CTR 10/2010 Resolved Problems Problem Noted Date Diagnosed Date Resolved Date Acute HFrEF (heart failure w ith reduced ejection fraction) 02/03/2024 10/13/2024 CHF (congestive heart failure) 02/02/2024 10/13/2024 NSTEMI (non-ST elevated myoc ardial infarction) 02/02/2024 10/13/2024 CKD (chronic kidney disease) stage 3, GFR 30-59 ml/min 09/12/2018 10/25/2020 Type 2 diabetes mellitus wit h hyperglycemia, with long-term current use of insulin 06/30/2018 Dizziness 06/06/2018 10/25/2020 Anxiety 10/27/2013 10/25/2020 Extremity pain,LUE 09/26/2012 1 Abdominal bloating 05/07/2011 2 Abdominal bloating 05/07/2011 1 Disorder of sacrum 03/26/2011 1 Encounters Date Type Department Care Team Description 02/14/2025 Orders Only [address] [place] [facility] [place] [phone] Torey Smith CMA 01/28/[address] [place] [phone] Katerin Dallas DO 01/10/2025 External Device Data STL ABSTRACTION Provider, Abstract 01/09/2025 External Device Data STL ABSTRACTION Provider, Abstract 01/03/2025 10:30 AM CDT Office Visit [facility] [address] [place] [address] Luther Babin NP Bilateral carotid artery stenosis (Primary Dx); S/P carotid endarterectomy; Essential hypertension; PAD (peripheral artery disease) 01/03/2025 9:30 AM CDT Ancillary Procedure [facility] [place] [address] Luther Babin NP Stenosis of right carotid artery 01/01/[address] [place] [address] [facility] [place] [phone] Katerin Dallas DO 12/27/[address] [facility] [address] Katerin Dallas DO Type 2 diabetes mellitus with hyperglycemia, with long-term current use of insulin ([facility]); Type 2 diabetes mellitus with diabetic peripheral angiopathy without gangrene, with long-term current use of insulin ([facility]) 12/26/2024 Refill [facility] Endocrinology [facility] [address] [place] [address] Shalini Blanco PA Type 2 diabetes mellitus with hyperglycemia, with long-term current use of insulin ([facility]); Type 2 diabetes mellitus with diabetic peripheral angiopathy without gangrene, with long-term current use of insulin ([facility]) 12/21/[address] [place] [phone] Katerin Dallas DO Allergic rhinitis, unspecified seasonality, unspecified trigger 12/09/2024 Refill [facility] Endocrinology [facility] [address] [place] [address] Shalini Blanco PA 12/05/2024 External Device Data STL ABSTRACTION Provider, Abstract 12/04/2024 Orders Only [facility] [place] [address] [place] [address] Luther Babin NP Stenosis of right carotid artery (Primary Dx) 12/04/2024 Telephone [facility] [place] [address] [facility] [address] [place] [address] Chin Mclaughlin MD Question 11/24/2024 3:20 PM CDT Office Visit [address] [place] [phone] Katerin Dallas DO Type 2 diabetes mellitus with diabetic peripheral angiopathy without gangrene, with long-term current use of insulin ([facility]) (Primary Dx) from Last 3 Months Immunizations Immunization Administration Dates Next Due (ADACEL/BOOSTRIX)(10 YR UP) TDAP VACCINE, 0.5ML, IM 09/12/2018 (PNEUMOVAX 23)(50 YRS UP) PN EUMOCOCCAL POLYSACCHARIDE (PPV23) 0.5 ML, IM 03/28/2018,12/22/2011,12/12/2004 (PREVNAR 20)(6 WKS UP) PNEUM OCOCCAL CONJUGATE VACCINE 20-VALENT (PCV20), POLYSACCHARIDE [id number] CONJUGATE, ADJUVANT 0.5 ML (PF) IM 01/25/2024 [...] 0.3 0.4 Started: 07/27/1979 Smokeless Tobacco: Never Tobacco Cessation:Ready to Q [...] on file 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 Gender Identity Not on file Sexual Orientation Not on file Last Filed Vital Signs Vital Sign Reading Time Taken Comments Blood Pressure 118/72 01/03/2025 10:04 AM CDT Pulse 59 01/03/2025 10:04 AM CDT Temperature 36.4 C (97.5 F) 11/24/2024 3:15 PM CDT Respiratory Rate 18 11/24/2024 3:15 PM CDT Oxygen Saturation 94% 01/03/2025 10:04 AM CDT Inhaled Oxygen Concentration - - Weight 106.6 kg (235 lb) 01/03/2025 10:04 AM CDT Height 177.8 cm (5' 10 ) 01/03/2025 10:04 AM CDT Body Mass Index 33.72 01/03/2025 10:04 AM CDT Plan of Treatment Upcoming Encounters Date Type Department Care Team (Late st Contact Info) Description 07/04/2025 8:00 AM CDT Ancillary Procedure [facility] [place] [address] [place] [address] Luther Babin NP [facility] [address] [place] [address] 07/04/2025 8:30 AM CDT Ancillary Procedure [facility] [place] [address] [place] [address] Luther Babin NP [address] [place] [address] 07/04/2025 9:30 AM CDT Office Visit [facility] Surgery [address] [place] [address] Luther Babin NP [address] [place] [address] Health Maintenance Due Date Last Done Comments FIT/ DNA Q 3 YEARS (AUTO ORDER) 1981 FLEX SIG/CT COLONOGRAPHY Q 5 YEARS (AUTO ORDER) 1981 COLORECTAL CANCER SCREENING (AUTO ORDER) 01/15/2008 COLORECTAL SCREENING 01/15/2008 Colorectal Cancer Screening 01/15/2008 FIT-DNA Q 3 years 01/15/2008 FIT/FOBT Q 1 year 01/15/2008 Flex Sig/CT Colonography Q 5 years 01/15/2008 RSV VACCINE (60+ or ) (1 - Risk 50-74 years 1-dose series) 2013 ZOSTER VACCINE (1 of 2) 2013 Colorectal Cancer Screening (AUTO ORDER) 03/21/2014 FIT/FOBT Q 1 YEAR (AUTO ORDER) 03/21/2014 03/21/2013 DIABETES ANNUAL RETINAL EXAM 11/08/2019, 08/17/2016, 08/17/2016, Additional history exists INFLUENZA VACCINE (#1) 2024 , 03/28/2018, 12/19/2012, Additional history exists COVID-19 Vaccine (2024-2 6 season) 2024 12/12/2021, 05/02/2021 DIABETES: A1C (Auto Order) 01/13/202510/13, 01/25/2024, 09/27/2023, Additional history exists Traditional Medicare (ACO) A nnual Wellness Visit 02/25/2025 02/25/2024 DIABETES HBA1C Q 6 MONTHS 04/15/20252024, 01/25/2024, 09/27/2023, Additional history exists DIABETES ANNUAL FOOT EXAM 10/13/20252024, 04/16/2023, 05/29/2022, Additional history exists DIABETES MICROALBUMIN ANNUAL SCREEN 10/13/2025 10/13/2024, 07/26/2020, 05/10/2019, Additional history exists LDL CHOLESTEROL ANNUAL 10/13/2025 , 09/27/2023, 11/28/2021, Additional history exists DTAP/TDAP/TD VACCINES (2 - T d or Tdap) 09/12/2028 09/12/2018 Goals Goal Patient [...] Care Plan Heart Failure Problem No Klaudia, Ozya Heart Failure Goal Care Plan Heart Failure Problem No Arelis Irene, ASSOCIATE CIVIL ENGINEER Heart Failure Goal Care Plan Heart [...] Goal Care Plan Heart Failure Problem No Kannan, Kristy, GENERAL SURGEON Heart Failure Goal Care Plan Heart Failure Problem No Barriga, Mabel, GENERAL SURGEON Heart Failure Goal Care Plan Heart Failure Problem No Chayo Rosenthal, GENERAL SURGEON Heart Failure Goal Care Plan Heart Failure Problem No Chayo Rosenthal, GENERAL SURGEON Heart Failure Goal Care Plan Heart Failure Problem No Chayo Rosenthal, GENERAL SURGEON Heart Failure Goal Care Plan Heart Failure Problem No Chayo Rosenthal L, GENERAL SURGEON Heart Failure Goal Care Plan Heart Failure Problem No Rauch[place], Arelis Ivanna, ASSOCIATE CIVIL ENGINEER Heart Failure Goal Care Plan Heart Failure Problem No [place]uch[place], Arelis Ivanna, ASSOCIATE CIVIL ENGINEER Heart Failure Goal Care Plan Heart Failure Problem No Barriga, Mabel, GENERAL SURGEON Heart Failure Goal Care Plan Heart Failure Problem No Barriga, Mabel, GENERAL SURGEON Heart Failure Goal Care Plan Heart Failure Problem No Barriga, Mabel, GENERAL SURGEON Heart Failure Goal Care Plan Heart Failure Problem No Tiller Denise D, ASSOCIATE CIVIL ENGINEER Heart Failure Goal Care Plan Heart Failure Problem No Tiller, Denise D, ASSOCIATE CIVIL ENGINEER Heart Failure Goal Care Plan Heart Failure Problem No Ariane, Denise D, ASSOCIATE CIVIL ENGINEER Heart Failure Goal Care Plan Heart Failure Problem No TillerMichaela D, [facility] Medical Devices Implanted Type Area Specialty Cook Device Identifier Shelf Expiration Date Model / Serial / Lot Atriclip Flex-V Di Exclusion 40mm Achv40 - [id number] Implanted:Qty : 1 on 02/07/2024 by Heladio Nguyen MD at [facility] Cardiovascular Device N/A: Heart [employer]URE INC [id number] 11/13/2026 ACHV40 / / [id number] Clip Ligating Horizon Med Ti 297425 - [facility] - [id number] Implanted:Qty : 1 on 02/07/2024 by Heladio Nguyen MD at [facility] Clip N/A: Chest TELEFLEX- WECK CLOSURE SYS [id number] 10/06/2028 066837 / / [id number] Animal Nursery Worker Ligaclip l Mcs20 - [id number] Implanted:Qty : 1 on 02/07/2024 by Heladio Nguyen MD at [facility] Clip N/A: Chest J&J- ETHICON ENDO-SURGERY INC [id number] 11/12/2028 MCS20 / / [id number] Animal Nursery Worker Ligaclip Sml Mcs20 - [id number] Implanted:Qty : 1 on 02/07/2024 by Heladio Nguyen MD at [facility] Clip N/A: Chest J&J- ETH[employer]ON ENDO-SUR[employer] [id number] 11/12/2028 MCS20 / / [id number] Animal Nursery Worker Ligaclip Sml Mcs20 - [id number] Implanted:Qty : 1 on 02/07/2024 by Heladio Nguyen MD at [facility] Clip N/A: Chest J&J- [employer]ON ENDO-SUR[employer] [id number] 11/12/2028 MCS20 / / [id number] Clip Ligating Horizon Red 724510 - Csc - [id number] Implanted:Qty : 1 on 04/11/2024 by Chin Mclaughlin MD at [facility] Clip Right: Neck TELEFLEX INC [id number] 11/10/2028 358104 / / [id number] Clip Ligating Horizon Med Ti 187008 - Csc - [id number] Implanted:Qty : 1 on 04/11/2024 by Chin Mclaughlin MD at [facility] Clip Right: Neck TELEFLEX- WECK CLOSURE SYS [id number] 11/12/2028 192954 / / [id number] Patch Vascu-Guard 0.8x8cm Cardio Vg-0108 - [id number] Implanted:Qty : 1 on 04/11/2024 by Chin Mclaughlin MD at [facility] Collagen Right: Carotid SYNOVIS- BIO-VASCULAR INC [id number] 11/08/2025 AW3061 / / [id number] Hemostatic Surgiflo 8ml W/ Thrombin 2994 - [id number] Implanted:Qty : 1 on 04/11/2024 by Chin Mclaughlin MD at [facility] Hemostatic Right: Neck J&J- ETHICON INC [id number] 06/12/2025 2994 / / [id number] Agent Hemostat Surgicel 3x4in 1943s - [id number] Implanted:Qty : 1 on 04/11/2024 by Chin Mclaughlin MD at [facility] Hemostatic Right: Neck J&J- ETHICON INC [id number] 12/12/2028 1943S / / [id number] Log [id number] - Theo Dynesys Lumbar Fixation - 1 - Cord Dynesys 100mm .07818.100 Implanted:Qty : 1 on 06/16/2010 Other N/A: Spine Lumbar THEO US INC 04/15/2013 01.0371 1.100 / NA / [id number] Description:two in package Log [id number] - Theo Dynesys Lumbar Fixation - 1 - Screw Pedicle 6.4x50mm 16.450 Implanted:Qty : 1 on 06/16/2010 Screw N/A: Spine Lumbar [employer] INC 10/13/2010.0371 6.450 / NA / [id number] Description:two screws per p ackage Screw Bio-Tenodesis 7x23mm Ar-1570b - [id number] Implanted:Qty : 1 on 02/07/2013 by Ajay Bustamante DO Screw Left: Shoulder ARTHREX INC 06/13/2014 AR-1570 B / / [id number] Description:left Screw Sternalock Stiven 2.4x16mm 73-2416 - [id number] Implanted:Qty : 1 on 02/07/2024 by Heladio Nguyen MD at [facility] Screw N/A: Sternum BIOMET MCRFXTN - [place] RACHEL 73-2416 / / Screw Sternalock Stiven 2.4x16mm 73-2416 - [id number] Implanted:Qty : 1 on 02/07/2024 by Heladio Nguyen MD at [facility] Screw N/A: Sternum BIOMET MCRFXTN - [place] RACHEL 73-2416 / / Screw Sternalock Stiven 2.4x16mm 73-2416 - [id number] Implanted:Qty : 1 on 02/07/2024 by Heladio Nguyen MD at [facility] Screw N/A: Sternum BIOMET MCRFXTN - [place] RACHEL 73-2416 / / Screw Sternalock Stiven 2.4x16mm 73-2416 - [id number] Implanted:Qty : 1 on 02/07/2024 by Heladio Nguyen MD at [facility] Screw N/A: Sternum BIOMET MCRFXTN - [place] RACHEL 73-2416 / / Screw Sternalock Stivne 2.4x16mm 73-2416 - [id number] Implanted:Qty : 1 on 02/07/2024 by Heladio Nguyen MD at [facility] Screw N/A: Sternum BIOMET MCRFXTN - [place] RACHEL 73-2416 / / Screw Sternalock Stiven 2.4x16mm 73-2416 - [id number] Implanted:Qty : 1 on 02/07/2024 by Heladio Nguyen MD at [facility] Screw N/A: Sternum BIOMET MCRFXTN - [place] RACHEL 73-2416 / / Screw Sternalock Stiven 2.4x18mm 73-2418 - [id number] Implanted:Qty : 1 on 02/07/2024 by Heladio Nguyen MD at [facility] Screw N/A: Sternum BIOMET MCRFXTN - [place] RACHEL 73-2418 / / Screw Sternalock Stiven 2.4x18mm 73-2418 - [id number] Implanted:Qty : 1 on 02/07/2024 by Heladio Nguyen MD at [facility] Screw N/A: Sternum BIOMET MCRFXTN - [place] RACHEL 73-2418 / / Screw Sternalock Stiven 2.4x18mm 73-2418 - [id number] Implanted:Qty : 1 on 02/07/2024 by Heladio Nguyen MD at [facility] Screw N/A: Sternum BIOMET MCRFXTN - [place] RACHEL 73-2418 / / Screw Sternalock Stiven 2.4x18mm 73-2418 - [id number] Implanted:Qty : 1 on 02/07/2024 by Heladio Nguyen MD at [facility] Screw N/A: Sternum BIOMET MCRFXTN - [place] RACHEL 73-2418 / / Screw Sternalock Stiven 2.4x18mm 73-2418 - [id number] Implanted:Qty : 1 on 02/07/2024 by Heladio Nguyen MD at [facility] Screw N/A: Sternum BIOMET MCRFXTN - [place] RACHEL 73-2418 / / Screw Sternalock Stiven 2.4x18mm 73-2418 - [id number] Implanted:Qty : 1 on 02/07/2024 by Heladio Nguyen MD at [facility] Screw N/A: Sternum BIOMET MCRFXTN - [place] RACHEL 73-2418 / / Screw Sternalock Stiven 2.4x18mm 73-2418 - [id number] Implanted:Qty : 1 on 02/07/2024 by Heladio Nguyen MD at [facility] Screw N/A: Sternum BIOMET MCRFXTN - [place] RACHEL 73-2418 / / Screw Sternalock Stiven 2.4x18mm 73-2418 - [id number] Implanted:Qty : 1 on 02/07/2024 by Heladio Nguyen MD at [facility] Screw N/A: Sternum BIOMET MCRFXTN - [place] RACHEL 73-2418 / / Screw Sternalock Stiven 2.4x18mm 73-2418 - [id number] Implanted:Qty : 1 on 02/07/2024 by Heladio Nguyen MD at [facility] Screw N/A: Sternum BIOMET MCRFXTN - [place] RACHEL 73-2418 / / Screw Sternalock Stiven 2.4x18mm 73-2418 - [id number] Implanted:Qty : 1 on 02/07/2024 by Heladio Nguyen MD at [facility] Screw N/A: Sternum BIOMET MCRFXTN - [place] RACHEL 73-2418 / / Screw Sternalock Stiven 2.4x18mm 73-2418 - [id number] Implanted:Qty : 1 on 02/07/2024 by Heladio Nguyen MD at [facility] Screw N/A: Sternum BIOMET MCRFXTN - [place] RACHEL 73-2418 / / Screw Jadest. [facility] centerfelipe Stiven 2.4x18mm 73-3019 - [id number] Implanted:Qty : 1 on 02/07/2024 by Heladio Nguyen MD at [facility] Screw N/A: Sternum BIOMET [facility] HEALTHFXTJanine RAMOS 73-1658 / / Log [id number] - Theo Dynesys Lumbar Fixation - 1 - Spacer Dynesys 45mm 2/Ea Implanted:Qty : 1 on 06/16/2010 Spacer N/A: Spine Lumbar THEO US INC 08/13/2012 01.0371 0.645 / NA / [id number] Description:two per package Log [id number] - Theo Dynesys Lumbar Fixation - 1 - Spacer Dynesys 45mm 2/Ea Implanted:Qty : 1 on 06/16/2010 Spacer N/A: Spine Lumbar [employer] INC 08/13/2012 01.0371 0.645 / NA / [id number] H Plate 6-Hole Implanted:Qty : 1 on 02/07/2024 by Heladio Nguyen MD at [facility] N/A: Sternum THEO BIOMET- 115.102 .06 / / H Plate 6-Hole Implanted:Qty : 1 on 02/07/2024 by Heladio Nguyen MD at [facility] N/A: Sternum THEO BIOMET- 115.102 .06 / / Gold Plate Implanted:Qty : 1 on 02/07/2024 by Heladio Nguyen MD at [facility] N/A: Sternum THEO BIOMET- 115.604 .06 / / Explanted Type Area Specialty Cook Device Identifier Shelf Expiration Date Model / Serial / Lot Log [id number] - Theo Dynesys Lumbar Fixation - 1 - Cord Dynesys 100mm 100 Explanted:Qty: 1 on 06/16/2010 Other N/A: Spine Lumbar [employer]O [employer] INC . 00 / NA / NA Description:EXPLANTED EXISTI NG HARDWARE DUE TO NEED FOR EXTENSION PER RADHA THEO REP Log [id number] - Theo Dynesys Lumbar Fixation - 1 - Spacer Dynesys 45mm 2/Ea 5 Explanted:Qty: 1 on 06/16/2010 Spacer N/A: Spine Lumbar [employer] [id number] 45 / NA / NA Description:EXPLANTED EXISTI NG HARDWARE DUE TO NEED FOR EXTENSION PER RADHA THEO REP Procedures Procedure Name Priority Date/Time Associated Diagnosis Comments US CAROTID DOPPLER Routine 01/03/2025 9: 53 AM CDT Stenosis of right carotid artery MICROALBUMIN/CREATIN INE RATIO, RANDOM UR Routine 10/13/2024 2:38 PM CDT Type 2 diabetes mellitus with stage 2 chronic kidney disease, without long-term current use of insulin (CMS/HCC) LIPID RFLX Routine 10/13/2024 2:34 PM CDT Type 2 diabetes mellitus with stage 2 chronic kidney disease, without long-term current use of insulin (CMS/HCC) HEMOGLOBIN A1C Routine 10/13/2024 2:34 PM CDT Type 2 diabetes mellitus with stage 2 chronic kidney disease, without long-term current use of insulin (CMS/HCC) from Last 3 Months or Most Recently Relevant to Health Maintenance Results * US CAROTID DOPPLER (01/03/2025 9:53 AM CDT) Anatomical Region Laterality Modality Neck Ultrasound 01/03/2025 9:31 AM CDT Narrative 01/03/2025 2:04 PM CDT [facility] [address] [place] [address] Noninvasive Vascular Lab Cerebrovascular Exam Carotid Duplex Patient: Katerin Shetty Study ID: US CAROTID DOPPL Gender: M : 1965 Age: 59 Room: Height: 178cm Weight: 105.7kg BSA: 2.32m^2 Pt status: Outpatient Study Date: 01/03/2025 Study Time: 09:31:20 AM BSA: 2.32m^2 Ordering: Luther Babin Interpreting:Chin Mclaughlin Decaler: MALATHI Souvenir And Novelty Maker:KGT Indications: Right carotid stenosis. Summary Impression: 1. No evidence of hemodynamically significant extracranial carotid disease bilaterally. 2. The vertebral arteries are patent with antegrade flow bilaterally. 3. No change from the prior exam of 05/24/2024. Study data: Carotid duplex study. Complete study and Doppler flow study including spectral analysis, color and lopez scale imaging. Height: 178cm. Height: 70.1in. Weight: 105.7kg. Weight: 233lb. BMI: 33.4kg/m^2. BSA: 2.32m^2. Location: Vascular laboratory. Patient status: Outpatient. Study status: Routine. Procedure: A vascular evaluation was performed. Image quality was good. Arterial flow: - Right CCA proximal: Right CCA proximal 0.75m/sec 0.18m/sec - Right CCA distal: Right CCA distal 0.44m/sec 0.13m/sec - Right ICA proximal: Right ICA proximal 1.14m/sec 0.35m/sec 1.51 1.91 - Right ICA mid: Right ICA mid 0.91m/sec 0.19m/sec 1.21 1.03 - Right ICA distal: Right ICA distal 0.39m/sec 0.17m/sec 0.52 0.94 - Right ECA: Right ECA 3.44m/sec 0.35m/sec - Right vertebral: Right vertebral 0.36m/sec 0.18m/sec Antegrade flow - Left CCA proximal: Left CCA proximal 0.63m/sec 0.22m/sec - Left CCA distal: Left CCA distal 0.47m/sec 0.18m/sec - Left ICA proximal: Left ICA proximal 0.91m/sec 0.28m/sec 1.44 1.27 - Left ICA mid: Left ICA mid 1.14m/sec 0.51m/sec 1.8 2.28 - Left ICA distal: Left ICA distal 0.66m/sec 0.19m/sec 1.03 0.87 - Left ECA: Left ECA 3.06m/sec 0.53m/sec - Left vertebral: Left vertebral 0.24m/sec 0.05m/sec Antegrade flow [facility] is accredited with the Intersocietal Commission for the Accreditation of Vascular Laboratories (ICAVL) Prepared and Electronically Authenticated Chin Mclaughlin Confirmed 01/03/2025 14:04 Procedure Note Chin Mclaughlin MD - 01/03/2025 [facility] [address] [facility] [address] [place] [address] Noninvasive Vascular Lab Cerebrovascular Exam Carotid Duplex Patient: Katerin Shetty Study ID: US CAROTID DOPPL Gender: M : 1965 Age: 59 Room: Height: 178cm Weight: 105.7kg BSA: 2.32m^2 Pt status: Outpatient Study Date: 01/03/2025 Study Time: 09:31:20 AM BSA: 2.32m^2 Ordering: Luther Babin Interpreting:Chin Mclaughlin Decaler: MALATHI Souvenir And Novelty Maker:BRIANAT Indications: Right carotid stenosis. Summary Impression: 1. No evidence of hemodynamically significant extracranial carotiddisease bilaterally. 2. The vertebral arteries are patent with antegrade flow bilaterally. 3. No change from the prior exam of 05/24/2024. Study data: Carotid duplex study. Complete study and Doppler flowstudy including spectral analysis, color and lopez scale imaging. Height:178cm. Height: 70.1in. Weight: 105.7kg. Weight: 233lb. BMI: 33.4kg/m^2. BSA: 2.32m^2. Location: Vascular laboratory. Patient status:Outpatient. Study status: Routine. Procedure: A vascular evaluation wasperformed. Image quality was good. Arterial flow: - Right CCA proximal: Right CCA proximal 0.75m/sec 0.18m/sec - Right CCA distal: Right CCA distal 0.44m/sec 0.13m/sec - Right ICA proximal: Right ICA proximal 1.14m/sec 0.35m/sec 1.51 1.91 - Right ICA mid: Right ICA mid 0.91m/sec 0.19m/sec 1.21 1.03 - Right ICA distal: Right ICA distal 0.39m/sec 0.17m/sec 0.52 0.94 - Right ECA: Right ECA 3.44m/sec 0.35m/sec - Right vertebral: Right vertebral 0.36m/sec 0.18m/sec Antegrade flow - Left CCA proximal: Left CCA proximal 0.63m/sec 0.22m/sec - Left CCA distal: Left CCA distal 0.47m/sec 0.18m/sec - Left ICA proximal: Left ICA proximal 0.91m/sec 0.28m/sec 1.44 1.27 - Left ICA mid: Left ICA mid 1.14m/sec 0.51m/sec 1.8 2.28 - Left ICA distal: Left ICA distal 0.66m/sec 0.19m/sec 1.03 0.87 - Left ECA: Left ECA 3.06m/sec 0.53m/sec - Left vertebral: Left vertebral 0.24m/sec 0.05m/sec Antegrade flow [facility] is accredited withthe Inters[facility] general [facility] Commission for the Accreditation of Vascular Laboratories (ICAVL) Prepared and Electronically Authenticated Chin Mclaughlin Confirmed 01/03/2025 14:04 Luther Babin NP US ORDERABLES Final Result * (ABNORMAL) MICROALBUMIN/CREATININE RATIO, RANDOM UR (10/13/2024 2:38 PM CDT) CREATININE, URINE 120 20 - 320 mg/dL [facility] ALBUMIN, URINE 11.8 See Note: mg/dL [facility] Comment: Reference Range: Reference Range Not established ALB/CREAT RATIO, URINE 98(H) <30 mg/g creat [facility] Comment: The ADA defines abnormalities in albumin excretion as follows: Albuminuria Category Result (mg/g creatinine) Normal to Mildly increased <30 Moderately increased 30-299 Severely increased > OR = 300 The ADA recommends that at least two of three specimens collected within a 3-6 month period be abnormal before considering a patient to be within a diagnostic category. FASTING:UNKNOWN FASTING: UNKNOWN Test Performed at: [facility] [address] [place] [address] Guerda Hart MD Urine URINE SPECIMEN OBTAINED BY CLEAN CATCH PROCEDURE / Unknown 10/13/2024 2:38 PM CDT 10/13/2024 2:39 PM CDT Katerin Dallas DO URINE ORDERABLES Final Result [facility] [phone] [facility] [address] [facility] [place] [address] * (ABNORMAL) LIPID RFLX (10/13/2024 2:34 PM CDT) CHOLESTEROL 150 <200 mg/dL [facility] HDL 26(L) > OR = 40 mg/dL [facility] TRIGLYCERIDE 475(H) <150 mg/dL [facility] Comment: If a non-fasting specimen was collected, consider repeat triglyceride testing on a fasting specimen if clinically indicated. Taco et al. J. of Clin. Lipidol. 2015;9:129-169. LDL CALCULATED mg/dL (calc) [facility] Comment: LDL cholesterol not calculated. Triglyceride levels greater than 400 mg/dL invalidate calculated LDL results. Reference range: <100 Desirable range <100 mg/dL for primary prevention; <70 mg/dL for patients with CHD or diabetic patients with > or = 2 CHD risk factors. LDL-C is now calculated using the Armando-Altamirano calculation, which is a validated novel method providing better accuracy than the Friedewald equation in the estimation of LDL-C. Armando SS et al. RAJINDER. 2013;310(19): 1217-8586 (http://education.FLEx Lighting II/faq/ZYE455) CHOL/HDL RATIO 5.8(H) <5.0 (calc) [facility] NON-HDL CHOLESTEROL 124 <130 mg/dL (calc) [facility] Comment: For patients with diabetes plus 1 major ASCVD risk factor, treating to a non-HDL-C goal of <100 mg/dL (LDL-C of <70 mg/dL) is considered a therapeutic option. LDL CHOLESTEROL, DIRECT 75 <100 mg/dL [facility] Comment: Desirable range <100 mg/dL for primary prevention; <70 mg/dL for patients with CHD or diabetic patients with > or = 2 CHD risk factors. Test Performed at: [facility] [address] [address] [address] Guerda Hart MD Blood 10/13/2024 2:34 PM CDT 10/13/2024 2:35 PM CDT Katerin Dallas CHEMISTRY ORDERABLES Final Resu lt Performing Organization Address [facility] Co de Phone Number [facility] [phone] [facility] [address] [place] [address] * (ABNORMAL) HEMOGLOBIN A1C (10/13/2024 2:34 PM CDT) HEMOGLOBIN A1C 8.2(H) <5.7 % [facility] Comment: For someone without known diabetes, [...] diabetes for children. ESTIMATED AVERAGE GLUCOSE (MG/DL) 189 mg/dL [facility] ESTIMATED AVERAGE GLUCOSE (MMOL/L) 10.4 mmol/L [facility] Comment: FASTING:UNKNOWN FASTING: UNKNOWN Test Performed at: [facility] [address] [place] [address] [place] [address] Guerda Hart MD Blood 10/13/2024 2:34 PM CDT 10/13/2024 2:35 PM CDT Katerin Dallas DO CHEMISTRY ORDERABLES Final Resu lt Performing Organization Address [facility]/ZIP Co de Phone Number [facility] [phone] [facility] [address] [place] [address] [place] [address] from Last 3 Months or Most Recently [...] Patient Date of Phone Billing Address Personal/Family [address] [place] [address] RX INFOCROSSING Medicaid RX [facility] Medicare Part D Advance Directives For more information, please contact: [phone] * Full Code (Latest Code Status on File) Date Activated Date Inactivated Comments 04/11/2024 3:44 PM 04/12/2024 1:56 PM * Full Code Date Activated Date Inactivated Comments 02/07/2024 12:51 PM 02/12/2024 3:01 PM * Full Code Date Activated Date Inactivated Comments 02/02/2024 6:30 AM 02/07/2024 12:51 PM Care Teams Manager Recruitment Relationship Specialty Start Date End Date Katerin Dallas DO [address] [place] [address] Dr JERNIGAN [facility] [place] [phone] PCP - General Family Practice 10/13/24
--- OUTSIDE RECORDS SUMMARY | 2025-02-18 20:09 | XMS_ITS | Encounter Summary ---
Author Organization [facility] Address [address] [place] [address] Care Team Providers Care Supervisor Industrial Garment Name Role Phone Yesenia Maria DO Primary Care Provider [phone] Encounter Details Date Type Department Care Team (Late st Contact Info) Description 02/16/2007 Inpatient Historical [facility] CANCELLED ADMISSION Jacqueline Thakkar MD [address] [phone] Social History Tobacco Use Types Packs/Day Years Used Date Smoking Tobacco: Never Assessed Sex and Gender Information Value Date Recorded Sex Assigned at Not on file Legal Sex Male 2:36 AM CHIEF MERCHANDISING OFFICER Gender Identity Not on file Sexual Orientation Not on file documented as of this encounter Plan of Treatment Not on file documented as of this encounter Visit Diagnoses Not on filedocumented in this encounter Additional Health Concerns Infection Onset Date Last Indicated Resolved Time R/O COVID-19 01/26/2020 01/26/2020 01/28/2020 1:46 AM CHIEF MERCHANDISING OFFICER documented as of this encounter Care Teams Supervisor Industrial Garment Relationship Specialty Start Date End Date Yesenia Maria DO PCP - General Family Practice 04/18/20 07/14/20 documented as of this encounter
--- OUTSIDE RECORDS SUMMARY | 2025-02-18 20:09 | XMS_ITS | Encounter Summary ---
Author Organization [facility] Address [address] [place] [address] Care Team Providers Care Beam Carrier Hauler Pusher Name Role Phone Yesenia Maria DO Primary Care Provider [phone] Encounter Details Date Type Department Care Team (Late st Contact Info) Description 03/09/[address] [facility] Pain Management Procedures [address] [place] [phone] Ajay Rodriguez MD NO ADDRESS ON FILE Social History Tobacco Use Types Packs/Day Years Used Date Smoking Tobacco: Never Assessed Sex and Gender Information Value Date Recorded Sex Assigned at Not on file Legal Sex Male 2:36 AM MANAGER PUBLIC Gender Identity Not on file Sexual Orientation Not on file documented as of this encounter Plan of Treatment Not on file documented as of this encounter Visit Diagnoses Not on filedocumented in this encounter Additional Health Concerns Infection Onset Date Last Indicated Resolved Time R/O COVID-19 01/26/2020 01/26/2020 01/28/2020 1:46 AM MANAGER PUBLIC documented as of this encounter Care Teams Beam Carrier Hauler Pusher Relationship Specialty Start Date End Date Yesenia Maria DO PCP - General Family Practice 04/18/20 07/14/20 documented as of this encounter
--- OUTSIDE RECORDS SUMMARY | 2025-02-18 20:09 | XMS_ITS | Encounter Summary ---
Author Organization [facility] Address [address] [place] [address] Care Team Providers Care Music Intern Name Role Phone Yesenia Maria DO Primary Care Provider [phone] Encounter Details Date Type Department Care Team (Late st Contact Info) Description 03/01/2007 [facility]patient [facility] [address] [place] [phone] Jacqueline Thakkar MD [address] [address] Social History Tobacco Use Types Packs/Day Years Used Date Smoking Tobacco: Never Assessed Sex and Gender Information Value Date Recorded Sex Assigned at Not on file Legal Sex Male 2:36 AM GOVERNMENT AFFAIRS SPECIALIST Gender Identity Not on file Sexual Orientation Not on file documented as of this encounter Plan of Treatment Not on file documented as of this encounter Visit Diagnoses Not on filedocumented in this encounter Additional Health Concerns Infection Onset Date Last Indicated Resolved Time R/O COVID-19 01/26/2020 01/26/2020 01/28/2020 1:46 AM GOVERNMENT AFFAIRS SPECIALIST documented as of this encounter Care Teams Music Intern Relationship Specialty Start Date End Date Yesenia Maria DO PCP - General Family Practice 04/18/20 07/14/20 documented as of this encounter
--- OUTSIDE RECORDS SUMMARY | 2025-02-18 20:09 | XMS_ITS | Encounter Summary ---
Author Organization [facility] Address [address] [place] [address] Care Team Providers Care Magnetic Tester Name Role Phone Yesenia Maria DO Primary Care Provider [phone] Encounter Details Date Type Department Care Team (Late st Contact Info) Description 01/19/2011 Ancillary Orders [facility] Pain Management[address] [place] [phone] Adrienne Will PA [address] [place] [phone] Thoracic or lumbosacral neuritis or radiculitis, unspecified Social History Tobacco Use Types Packs/Day Years Used Date Smoking Tobacco: Former Cigarettes 0.3 Q uit: 12/14/2007 Smokeless Tobacco: Never Comments:may smoke occassion ally 1/4 pack Alcohol Use Standard Drinks/Week Comments No 0 (1 standard drink = 0.6 oz pur e alcohol) Sex and Gender Information Value Date Recorded Sex Assigned at Not on file Legal Sex Male 2:36 AM JEWELRY CASTING MODEL MAKER Gender Identity Not on file Sexual Orientation Not on file documented as of this encounter Plan of Treatment Not on file documented as of this encounter Results * XR FLUORO NEEDLE GUIDANCE (01/19/2011 9:38 AM JEWELRY CASTING MODEL MAKER) Anatomical Region Laterality Modality Computed Radiogr aphy Narrative 01/19/2011 9:39 AM JEWELRY CASTING MODEL MAKER Order information only. Exam was auto-finalized. Procedure Note CarleneAshley jensen, RT - 01/19/2011 Order information only. Exam was auto-finalized. Adrienne [facility] ORDERABLES Fi nal Result documented in this encounter Visit Diagnoses Diagnosis Thoracic or lumbosacral neuritis or radiculitis, unspecified Thoracic or lumbosacral neuritis or radiculitis, unspecified documented in this encounter Additional Health Concerns Infection Onset Date Last Indicated Resolved Time R/O COVID-19 01/26/2020 01/26/2020 01/28/2020 1:46 AM JEWELRY CASTING MODEL MAKER documented as of this encounter Care Teams Magnetic Tester Relationship Specialty Start Date End Date Yesenia Maria DO PCP - General Family Practice 04/18/20 07/14/20 documented as of this encounter
--- OUTSIDE RECORDS SUMMARY | 2025-02-18 20:09 | XMS_ITS | Encounter Summary ---
Author Organization [facility] Address [address] [place] [address] Care Team Providers Care Assistant Professor Of Philosophy Name Role Phone Yesenia Maria DO Primary Care Provider [phone] Encounter Details Date Type Department Care Team (Latest Contact Info) Description 12/30/2006 Outpatient Historical [facility] Orthopedics[address] [place] [address] Ajay Bustamante, DO [address] [place] [address] Thoracic or Lumbosacral Neuritis or Radiculitis, Unspecified (Primary Dx) Social History Tobacco Use Types Packs/Day Years Used Date Smoking Tobacco: Never Assessed Sex and Gender Information Value Date Recorded Sex Assigned at Not on file Legal Sex Male 2:36 AM SHEET METAL INSTALLER Gender Identity Not on file Sexual Orientation Not on file documented as of this encounter Plan of Treatment Not on file documented as of this encounter Visit Diagnoses Diagnosis Thoracic or lumbosacral neuritis or radiculitis, unspecified- Primary documented in this encounter Additional Health Concerns Infection Onset Date Last Indicated Resolved Time R/O COVID-19 01/26/2020 01/26/2020 01/28/2020 1:46 AM SHEET METAL INSTALLER documented as of this encounter Care Teams Assistant Professor Of Philosophy Relationship Specialty Start Date End Date Yesenia Maria DO PCP - General Family Practice 04/18/20 07/14/20 documented as of this encounter
--- OUTSIDE RECORDS SUMMARY | 2025-02-18 20:09 | XMS_ITS | Encounter Summary ---
Author Organization [facility] Address [address] [place] [address] Care Team Providers Care Client Leader Name Role Phone CrowNuryslaith CALHOUN Primary Care Provider [phone] Reason for Referral * Outpatient Services (Routine) - Closed Specialty Diagnoses / Procedures Referred By Contac t Referred To Contact Diagnoses S/P lumbar fusion Disorders of sacrum Procedures XR FLUORO NEEDLE GUIDANCE Adrienne Will PA [address] [place] [address] Phone: tel: fax: Referral ID Status Reason Start Date Expiration Date Visits Re quested Visits Authorized [id number] Closed 04/06/2011 04/05/2012 1 1 NESS SERVICES ASSOCIATE Encounter Details Date Type Department Care Team (Late st Contact Info) Description 04/06/2011 Ancillary Orders [facility] Pain Management[address] [place] [phone] Adrienne Will PA [address] [place] [address] S/P lumbar fusion; Disorders of [...] on file Legal Sex Male 2:36 AM BUSINESS SERVICES ASSOCIATE Gender Identity Not on file Sexual Orientation Not on file documented as of this encounter Plan of Treatment Not on file documented as of this encounter Results * XR FLUORO NEEDLE GUIDANCE (04/06/2011 9:49 AM BUSINESS SERVICES ASSOCIATE) Anatomical Region Laterality Modality Computed Radiogr aphy Narrative 04/06/2011 9:49 AM BUSINESS SERVICES ASSOCIATE Order information only. Exam was auto-finalized. Procedure Note Ashley Concepcion, RT - 04/06/2011 Order information only. Exam was auto-finalized. Adrienne [facility] ORDERABLES Fi nal Result documented in this encounter Visit Diagnoses Diagnosis S/P lumbar fusion Arthrodesis status Disorders of sacrum S/P lumbar fusion Arthrodesis status Disorders of sacrum documented in this encounter Additional Health Concerns Infection Onset Date Last Indicated Resolved Time R/O COVID-19 01/26/2020 01/26/2020 01/28/2020 1:46 AM BUSINESS SERVICES ASSOCIATE documented as of this encounter Care Teams Client Leader Relationship Specialty Start Date End Date Yesenia Maria DO PCP - General Family Practice 04/18/20 07/14/20 documented as of this encounter
--- OUTSIDE RECORDS SUMMARY | 2025-02-18 20:09 | XMS_ITS | Encounter Summary ---
Author Organization [facility] Address [address] [place] [address] Care Team Providers Care Emergency Medicine Nurse Practitioner Name Role Phone Yesenia Maria DO Primary Care Provider [phone] Encounter Details Date Type Department Care Team (Late st Contact Info) Description 03/18/2007 Outpatient [facility] [address] [place] [phone] Ajay Rodriguez MD NO ADDRESS ON FILE Social History Tobacco Use Types Packs/Day Years Used Date Smoking Tobacco: Never Assessed Sex and Gender Information Value Date Recorded Sex Assigned at Not on file Legal Sex Male 2:36 AM MAKING MACHINE OPERATOR Gender Identity Not on file Sexual Orientation Not on file documented as of this encounter Plan of Treatment Not on file documented as of this encounter Visit Diagnoses Not on filedocumented in this encounter Additional Health Concerns Infection Onset Date Last Indicated Resolved Time R/O COVID-19 01/26/2020 01/26/2020 01/28/2020 1:46 AM MAKING MACHINE OPERATOR documented as of this encounter Care Teams Emergency Medicine Nurse Practitioner Relationship Specialty Start Date End Date Yesenia Maria DO PCP - General Family Practice 04/18/20 07/14/20 documented as of this encounter
--- OUTSIDE RECORDS SUMMARY | 2025-02-18 20:09 | XMS_ITS | Encounter Summary ---
Author Organization [facility] Address [address] [place] [address] Care Team Providers Care Creping Machine Operator Name Role Phone Yesenia Maria DO Primary Care Provider [phone] Encounter Details Date Type Department Care Team (Late st Contact Info) Description 02/21/2007 Inpatient Historical [facility] [address] [place] [phone] Jacqueline Thakkar MD [address] [phone] Social History Tobacco Use Types Packs/Day Years Used Date Smoking Tobacco: Never Assessed Sex and Gender Information Value Date Recorded Sex Assigned at Not on file Legal Sex Male 2:36 AM SPINE SUPERVISOR Gender Identity Not on file Sexual Orientation Not on file documented as of this encounter Plan of Treatment Not on file documented as of this encounter Visit Diagnoses Not on filedocumented in this encounter Additional Health Concerns Infection Onset Date Last Indicated Resolved Time R/O COVID-19 01/26/2020 01/26/2020 01/28/2020 1:46 AM SPINE SUPERVISOR documented as of this encounter Care Teams Creping Machine Operator Relationship Specialty Start Date End Date Yesenia Maria DO PCP - General Family Practice 04/18/20 07/14/20 documented as of this encounter
--- OUTSIDE RECORDS SUMMARY | 2025-02-18 20:10 | XMS_ITS | Encounter Summary ---
Author Organization [facility] Address [address] [place] [address] Care Team Providers Care Application Technical Designer Name Role Phone Yesenia Maria DO Primary Care Provider [phone] Encounter Details Date Type Department Care Team (Latest Contact Info) Description 10/12/2008 Outpatient Historical [facility] [address] [place] [address] Miguel Hayden MD [address] [phone] Arthrodesis Status (Primary Dx); Thoracic or Lumbosacral [...] on file Legal Sex Male 2:36 AM RACK PULLER Gender Identity Not on file Sexual Orientation Not on file documented as of this encounter Plan of Treatment Not on file documented as of this encounter Visit Diagnoses Diagnosis Arthrodesis status- Primary Thoracic or lumbosacral neuritis or radiculitis, unspecified Lumbago documented in this encounter Additional Health Concerns Infection Onset Date Last Indicated Resolved Time R/O COVID-19 01/26/2020 01/26/2020 01/28/2020 1:46 AM RACK PULLER documented as of this encounter Care Teams Application Technical Designer Relationship Specialty Start Date End Date Yesenia Maria DO PCP - General Family Practice 04/18/20 07/14/20 documented as of this encounter
--- OUTSIDE RECORDS SUMMARY | 2025-02-18 20:10 | XMS_ITS | Encounter Summary ---
Author Organization [facility] Address [address] [place] [address] Care Team Providers Care Towel Hemmer Name Role Phone Yesenia Maria DO Primary Care Provider Encounter Details Date Type Department Care Team (Late st Contact Info) Description 06/04/2008 Emergency [facility] [address] [place] [address] Piyush Sahu MD [address] [place] [address] Yuri Richter MD NO ADDRESS ON FILE Unspecified Infective Otitis Externa (Primary Dx); Unspecified Perforation of Tympanic Membrane Social History Tobacco Use Types Packs/Day Years Used Date Smoking Tobacco: Former Cigarettes 0 Q uit: 12/14/2007 Alcohol Use Standard Drinks/Week Comments Not Asked 0 (1 standard drink = 0.6 oz pur e alcohol) Sex and Gender Information Value Date Recorded Sex Assigned at Not on file Legal Sex Male 2:36 AM COUNSELING DIRECTOR Gender Identity Not on file Sexual Orientation Not on file documented as of this encounter Plan of Treatment Not on file documented as of this encounter Visit Diagnoses Diagnosis Infective otitis externa, unspecified- Primary Perforation of tympanic membrane, unspecified documented in this encounter Additional Health Concerns Infection Onset Date Last Indicated Resolved Time R/O COVID-19 01/26/2020 01/26/2020 01/28/2020 1:46 AM COUNSELING DIRECTOR documented as of this encounter Care Teams Towel Hemmer Relationship Specialty Start Date End Date Yesenia Maria DO PCP - General Family Practice 04/18/20 07/14/20 documented as of this encounter
--- OUTSIDE RECORDS SUMMARY | 2025-02-18 20:10 | XMS_ITS | Encounter Summary ---
Author Organization [facility] Address [address] [place] [address] Care Team Providers Care Marina Dry Dock Manager Name Role Phone Yesenia Maria DO Primary Care Provider [phone] Encounter Details Date Type Department Care Team (Late st Contact Info) Description 01/26/2008 Outpatient Historical [facility] [address] [place] [address] Miguel Hayden MD [address] [address] Social History Tobacco Use Types Packs/Day Years Used Date Smoking Tobacco: Never Assessed Sex and Gender Information Value Date Recorded Sex Assigned at Not on file Legal Sex Male 2:36 AM TUBE TEST TECHNICIAN Gender Identity Not on file Sexual Orientation Not on file documented as of this encounter Plan of Treatment Not on file documented as of this encounter Procedures Procedure Name Priority Date/Time Associated Diagnosis Comments NICOTINE SCREEN, URINE Stat 01/26/2008 2:46 PM TUBE TEST TECHNICIAN CBC WITH DIFFERENTIAL Stat 01/26/2008 2:27 PM TUBE TEST TECHNICIAN BASIC METABOLIC PANEL Stat 01/26/2008 2:27 PM TUBE TEST TECHNICIAN documented in this encounter Results * NICOTINE SCREEN, URINE (01/26/2008 2:46 PM TUBE TEST TECHNICIAN) [facility] Signature NICOTINE SCREEN, URINE See Sep Report [facility] Urine specimen (specimen) 01/26/2008 2:46 PM TUBE TEST TECHNICIAN 01/27/2008 8:25 AM TUBE TEST TECHNICIAN us Miguel Hayden MD URINE ORDERABLES Final Result Performing Organization Address [facility] Phone Number INTERFACE SYSTEM Refer to clinic/hospital department [facility] CLIA# [id number] [address] [place] [address] * (ABNORMAL) BASIC METABOLIC PANEL (01/26/2008 2:27 PM TUBE TEST TECHNICIAN) GLUCOSE 99 70 - 110 mg/dL [facility] CHLORIDE 105 95 - 110 mEq/L [facility] SODIUM 141 136 - 145 mEq/L [facility] ANION GAP 12 9 - 20 mEq/L [facility] BUN 21(H) 9 - 20 mg/dL [facility] CO2 29 22 - 32 mmol/l [facility] OSMOLALITY, CALCULATED 294 275 - 295 mOsm/Kg [facility] POTASSIUM 4.5 3.5 - 5.0 mEq/L [facility] Comment: Specimen slightly hemolyzed CREATININE 1.2 0.7 - 1.5 mg/dL [facility] CALCIUM 10.0 8.4 - 10.5 mg/dL [facility] Blood specimen (specimen) 01/26/2008 2:27 PM TUBE TEST TECHNICIAN 01/26/2008 2:44 PM TUBE TEST TECHNICIAN us Miguel Hayden MD CHEMISTRY ORDERABLES Final Res ult Performing Organization Address [facility] Phone Number INTERFACE SYSTEM Refer to clinic/hospital department [facility] CLIA# [id number] [address] [place] [address] * (ABNORMAL) CBC WITH DIFFERENTIAL (01/26/2008 2:27 PM TUBE TEST TECHNICIAN) MONOCYTE ABSOLUTE 0.7(H) 0.1 - 0.6 K/ul [facility] HEMOGLOBIN 15.4 14.0 - 18.0 g/dL [facility] LYMPHOCYTES 38.5 24.0 - 44.0 % [facility] WBC 6.0 4.5 - 11.0 K/ul [facility] MCH 30.5 27.0 - 34.0 pg [facility] MPV 10.3 8.9 - 12.8 Fl [facility] EOSINOPHIL ABSOLUTE 0.2 0.0 - 0.7 K/ul [facility] BASOPHILS 1.2(H) 0.0 - 1.0 % [facility] HEMATOCRIT 43.8 41.0 - 53.0 % [facility] RDW 12.8 11.0 - 14.5 % [facility] LYMPHOCYTE ABSOLUTE 2.3 1.2 - 4.0 K/ul [facility] MONOCYTES 11.8(H) 2.0 - 10.0 % [facility] RBC 5.05 4.60 - 6.20 Mil/ul [facility] MCHC 35.2(H) 30.0 - 35.0 g/dL [facility] NEUTROPHIL ABSOLUTE 2.7 2.0 - 8.0 K/ul [facility] NEUTROPHILS 44.5 42.2 - 75.2 % [facility] BASOPHILS ABSOLUTE 0.1 0.0 - 0.2 K/ul [facility] MCV 86.7 84.0 - 103.0 Fl [facility] EOSINOPHILS 4.0 0.0 - 7.0 % [facility] PLATELETS 189 140 - 440 K/ul [facility] Blood specimen (specimen) 01/26/2008 2:27 PM TUBE TEST TECHNICIAN 01/26/2008 2:44 PM TUBE TEST TECHNICIAN us Miguel Hayden MD HEMATOLOGY ORDERABLES Final Re sult INTERFACE SYSTEM Refer to clinic/hospital department [facility] CLIA# [id number] [address] [place] [address], [place] [address] documented in this encounter Visit Diagnoses Not on filedocumented in this encounter Additional Health Concerns Infection Onset Date Last Indicated Resolved Time R/O COVID-19 01/26/2020 01/26/2020 01/28/2020 1:46 AM TUBE TEST TECHNICIAN documented as of this encounter Care Teams Marina Dry Dock Manager Relationship Specialty Start Date End Date Yesenia Maria DO PCP - General Family Practice 04/18/20 07/14/20 documented as of this encounter
--- OUTSIDE RECORDS SUMMARY | 2025-02-18 20:10 | XMS_ITS | Encounter Summary ---
Author Organization [facility] Address [address] [place] [address] Care Team Providers Care Adult School Teacher Name Role Phone Yesenia Marai DO Primary Care Provider [phone] Encounter Details Date Type Department Care Team (Late st Contact Info) Description 01/15/2008 Outpatient Historical [facility] Miguel Hayden MD [address] [address] Social History Tobacco Use Types Packs/Day Years Used Date Smoking Tobacco: Never Assessed Sex and Gender Information Value Date Recorded Sex Assigned at Not on file Legal Sex Male 2:36 AM TAI CHI INSTRUCTOR Gender Identity Not on file Sexual Orientation Not on file documented as of this encounter Plan of Treatment Not on file documented as of this encounter Procedures Procedure Name Priority Date/Time Associated Diagnosis Comments POC GLUCOSE Routine 02/07/2008 7:52 AM TAI CHI INSTRUCTOR CBC WITH DIFFERENTIAL Routine 02/07/2008 6:49 AM TAI CHI INSTRUCTOR BASIC METABOLIC PANEL Routine 02/07/2008 6:49 AM TAI CHI INSTRUCTOR POC GLUCOSE Routine 02/07/2008 5:12 AM TAI CHI INSTRUCTOR POC GLUCOSE Routine 02/06/2008 8:38 PM TAI CHI INSTRUCTOR POC GLUCOSE Routine 02/06/2008 2:17 PM TAI CHI INSTRUCTOR POC GLUCOSE Routine 02/06/2008 10:19 AM TAI CHI INSTRUCTOR XR FLUORO GREATER THAN 1 HOUR Routine 02/06/2008 10:07 AM TAI CHI INSTRUCTOR documented in this encounter Results * (ABNORMAL) POC GLUCOSE (02/07/2008 7:52 AM TAI CHI INSTRUCTOR) GLUCOSE POC 165(H) 60 - 100 mg/dL [facility] Venous blood specimen (specimen) 02/07/2008 7:52 AM TAI CHI INSTRUCTOR 02/07/2008 11:42 PM TAI CHI INSTRUCTOR us Miguel Hayden MD POINT OF CARE TESTING Final Re sult INTERFACE SYSTEM Refer to clinic/hospital department [facility] CLIA# [id number] [address] [place] [address] * (ABNORMAL) BASIC METABOLIC PANEL (02/07/2008 6:49 AM TAI CHI INSTRUCTOR) ANION GAP 12 9 - 20 mEq/L [facility] SODIUM 139 136 - 145 mEq/L [facility] CREATININE 1.2 0.7 - 1.5 mg/dL [facility] CO2 25 22 - 32 mmol/l [facility] GLUCOSE 226(H) 70 - 110 mg/dL [facility] POTASSIUM 3.6 3.5 - 5.0 mEq/L [facility] OSMOLALITY, CALCULATED 296(H) 275 - 295 mOsm/Kg [facility] CALCIUM 9.0 8.4 - 10.5 mg/dL [facility] BUN 22(H) 9 - 20 mg/dL [facility] CHLORIDE 106 95 - 110 mEq/L [facility] Blood specimen (specimen) 02/07/2008 6:49 AM TAI CHI INSTRUCTOR 02/07/2008 7:17 AM TAI CHI INSTRUCTOR us Miguel Hayden MD CHEMISTRY ORDERABLES Final Res ult INTERFACE SYSTEM Refer to clinic/hospital department [facility] CLIA# [id number] [facility] [place] [address] * (ABNORMAL) CBC WITH DIFFERENTIAL (02/07/2008 6:49 AM TAI CHI INSTRUCTOR) HEMATOCRIT 39.0(L) 41.0 - 53.0 % [facility] EOSINOPHILS 0.1 0.0 - 7.0 % [facility] PLATELETS 167 140 - 440 K/ul [facility] EOSINOPHIL ABSOLUTE 0.0 0.0 - 0.7 K/ul [facility] RBC 4.45(L) 4.60 - 6.20 Mil/ul [facility] LYMPHOCYTES 21.0(L) 24.0 - 44.0 % [facility] MCHC 34.4 30.0 - 35.0 g/dL [facility] LYMPHOCYTE ABSOLUTE 1.7 1.2 - 4.0 K/ul [facility] MCV 87.6 84.0 - 103.0 Fl [facility] MPV 10.6 8.9 - 12.8 Fl [facility] BASOPHILS ABSOLUTE 0.0 0.0 - 0.2 K/ul [facility] BASOPHILS 0.4 0.0 - 1.0 % [facility] HEMOGLOBIN 13.4(L) 14.0 - 18.0 g/dL [facility] RDW 12.9 11.0 - 14.5 % [facility] MONOCYTE ABSOLUTE 1.2(H) 0.1 - 0.6 K/ul [facility] MONOCYTES 14.3(H) 2.0 - 10.0 % [facility] WBC 8.0 4.5 - 11.0 K/ul [facility] MCH 30.1 27.0 - 34.0 pg [facility] NEUTROPHIL ABSOLUTE 5.2 2.0 - 8.0 K/ul [facility] NEUTROPHILS 64.2 42.2 - 75.2 % [facility] Blood specimen (specimen) 02/07/2008 6:49 AM TAI CHI INSTRUCTOR 02/07/2008 7:17 AM TAI CHI INSTRUCTOR us Miguel Hayden MD HEMATOLOGY ORDERABLES Final Re sult Performing Organization Address [facility] de Phone Number INTERFACE SYSTEM Refer to clinic/hospital department [facility] CLIA# [id number] [address] [place] [address] * (ABNORMAL) POC GLUCOSE (02/07/2008 5:12 AM TAI CHI INSTRUCTOR) GLUCOSE POC 295(H) 60 - 100 mg/dL [facility] Venous blood specimen (specimen) 02/07/2008 5:12 AM TAI CHI INSTRUCTOR 02/08/2008 2:42 AM TAI CHI INSTRUCTOR us Miguel Hayden MD POINT OF CARE TESTING Final Re sult Performing Organization Address [facility] Phone Number INTERFACE SYSTEM Refer to clinic/hospital department [facility] CLIA# [id number] [address] [place] [address] * (ABNORMAL) POC GLUCOSE (02/06/2008 8:38 PM TAI CHI INSTRUCTOR) GLUCOSE POC 199(H) 60 - 100 mg/dL [facility] Venous blood specimen (specimen) 02/06/2008 8:38 PM TAI CHI INSTRUCTOR 02/06/2008 11:52 PM TAI CHI INSTRUCTOR us Miguel Hayden MD POINT OF CARE TESTING Final Re sult Performing Organization Address [facility] Phone Number INTERFACE SYSTEM Refer to clinic/hospital department [facility] CLIA# [id number] [address] [place] [address] * (ABNORMAL) POC GLUCOSE (02/06/2008 2:17 PM TAI CHI INSTRUCTOR) GLUCOSE POC 152(H) 60 - 100 mg/dL [facility] Venous blood specimen (specimen) 02/06/2008 2:17 PM TAI CHI INSTRUCTOR 02/06/2008 11:52 PM TAI CHI INSTRUCTOR Result Jasvir Hayden MD POINT OF CARE TESTING Final Re sult Performing Organization Address [facility] Phone Number INTERFACE SYSTEM Refer to clinic/hospital department [facility] CLIA# [id number] [address] [place] [address] * (ABNORMAL) POC GLUCOSE (02/06/2008 10:19 AM TAI CHI INSTRUCTOR) GLUCOSE POC 153(H) 60 - 100 mg/dL [facility] Venous blood specimen (specimen) 02/06/2008 10:19 AM TAI CHI INSTRUCTOR 02/07/2008 2:44 AM TAI CHI INSTRUCTOR us Miguel Hayden MD POINT OF CARE TESTING Final Re sult Performing Organization Address [facility] Phone Number INTERFACE SYSTEM Refer to clinic/hospital department [facility] CLIA# [id number] [address] [place] [address] * XR FLUORO > 1 HOUR (02/06/2008 10:07 AM TAI CHI INSTRUCTOR) Anatomical Region Laterality Modality Other 02/06/2008 10:0 7 AM TAI CHI INSTRUCTOR Narrative 02/06/2008 10:07 AM TAI CHI INSTRUCTOR Finalized by [employer]flow[employer] utility. No report expected. Procedure Note 03/25/2008 Finalized by interface Orphazymeup utility. No report expected. Result Jasvir Hayden MD DIAGNOSTIC IMAGING ORDERABLES Final Result documented in this encounter Visit Diagnoses Not on filedocumented in this encounter Additional Health Concerns Infection Onset Date Last Indicated Resolved Time R/O COVID-19 01/26/2020 01/26/2020 01/28/2020 1:46 AM TAI CHI INSTRUCTOR documented as of this encounter Care Teams Adult School Teacher Relationship Specialty Start Date End Date Yesenia Maria DO PCP - General Family Practice 04/18/20 07/14/20 documented as of this encounter
--- OUTSIDE RECORDS SUMMARY | 2025-02-18 20:10 | XMS_ITS | Encounter Summary ---
Author Organization [facility] Address [address] [place] [address] Care Team Providers Care Transformation Manager Name Role Phone Yesenia Maria DO Primary Care Provider [phone] Encounter Details Date Type Department Care Team (Latest Contact Info) Description 10/21/2006 Outpatient Historical [facility] Orthopedics[address] [place] [address] Ajay Bustamante, DO [address] [email or web address] [address] Other Joint Derangement, not Elsewhere Classified, Ankle and Foot (Primary Dx) Social History Tobacco Use Types Packs/Day Years Used Date Smoking Tobacco: Never Assessed Sex and Gender Information Value Date Recorded Sex Assigned at Not on file Legal Sex Male 2:36 AM HR SYSTEMS ANALYST Gender Identity Not on file Sexual Orientation Not on file documented as of this encounter Plan of Treatment Not on file documented as of this encounter Visit Diagnoses Diagnosis Other joint derangement, not elsewhere classified, ankle and foot- Primary documented in this encounter Additional Health Concerns Infection Onset Date Last Indicated Resolved Time R/O COVID-19 01/26/2020 01/26/2020 01/28/2020 1:46 AM HR SYSTEMS ANALYST documented as of this encounter Care Teams Transformation Manager Relationship Specialty Start Date End Date Yesenia Maria DO PCP - General Family Practice 04/18/20 07/14/20 documented as of this encounter
--- OUTSIDE RECORDS SUMMARY | 2025-02-18 20:10 | XMS_ITS | Encounter Summary ---
Author Organization [facility] Address [address] [place] [address] Care Team Providers Care Pt Skilled Name Role Phone Radu Dallas DO Primary Care Provider [phone] Reason for Visit * Reason Comments Medication Refill Encounter Details Date Type Department Care Team (Late Contact Info) Description 10/15/2020 Refill [facility] Internal Medicine [address] [place] [address] Lakeisha Altamirano MD NO ADDRESS [...] on file Legal Sex Male 1:33 AM PLANTING MATERIAL REMOVER Gender Identity Not on file Sexual Orientation Not on file documented as of this encounter Plan of Treatment Upcoming Encounters Date Type Department Care Team (Late st Contact Info) Description 07/04/2025 8:00 AM CDT Ancillary Procedure [facility] Vascular Lab and Vein Center- [place] [address] [place] [address] Luther Babin NP [address] [place] [address] 07/04/2025 8:30 AM CDT Ancillary Procedure [facility] V[facility] Lab and Ve[facility]- [place] [address] [place] [address] Luther Babin NP [address] [facility] [address] [place] [address] 07/04/2025 9:30 AM CDT Office Visit [facility] Vascular Surgery [place] [address] [place] [address] Luther Babin NP [address] [facility] [address] [place] [address] documented as of this encounter Visit Diagnoses Not on filedocumented in this encounter Care Teams Pt Skilled Relationship Specialty Start Date End Date Radu Dallas DO [address] [place] [address] [address] [place] [id number] PCP - General Family Practice 10/13/24 documented as of this encounter
--- OUTSIDE RECORDS SUMMARY | 2025-02-18 20:10 | XMS_ITS | Encounter Summary ---
Author Organization [facility] Address [address] [place] [address] Care Team Providers Care Chip Loft Worker Name Role Phone Yesenia Maria DO Primary Care Provider [phone] Encounter Details Date Type Department Care Team (Late st Contact Info) Description 02/29/2008 Outpatient Historical [facility] DEFAULT DEPARTMENT Miguel Hayden MD [address] [address] Social History Tobacco Use Types Packs/Day Years Used Date Smoking Tobacco: Never Assessed Sex and Gender Information Value Date Recorded Sex Assigned at Not on file Legal Sex Male 2:36 AM SAFETY SPEC Gender Identity Not on file Sexual Orientation Not on file documented as of this encounter Plan of Treatment Not on file documented as of this encounter Procedures Procedure Name Priority Date/Time Associated Diagnosis Comments NM MYOCARD PERF IMAG SPECT SINGL Routine 03/14/2008 12:51 PM SAFETY SPEC documented in this encounter Results * NM MYOCARD PERF IMAG SPECT SINGL (03/14/2008 12:51 PM SAFETY SPEC) 03/14/2008 12:5 1 PM SAFETY SPEC Narrative INTERFACE SYSTEM - 03/14/2008 12:51 PM SAFETY SPEC Radionuclide Myocardial Perfusion SPECT Rest/Adenosine Stress Wall [...] R/O COVID-19 01/26/2020 01/26/2020 01/28/2020 1:46 AM SAFETY SPEC documented as of this encounter Care Teams Chip Loft Worker Relationship Specialty Start Date End Date Yesenia Maria DO PCP - General Family Practice 04/18/20 07/14/20 documented as of this encounter
--- OUTSIDE RECORDS SUMMARY | 2025-02-18 20:10 | XMS_ITS | Encounter Summary ---
Author Organization [facility] Address [address] [place] [address] Care Team Providers Care Cost Recovery Technician Name Role Phone Radu Dallas DO Primary Care Provider [phone] Reason for Visit * Reason Comments Medication Refill Encounter Details Date Type Department Care Team (Late Contact Info) Description 09/13/2020 Refill [facility] Internal Medicine and Pediatrics-[address] [place] [address] Vy Patricio NP [address] [facility] [address] [place] [address] Social History Tobacco Use Types Packs/Day Years Used Date Smoking Tobacco: Every Day Cigarettes Smokeless Tobacco: Never Comments:Quit smoking: less than 1/2 pack per day Alcohol Use Standard Drinks/Week Comments No 0 (1 standard drink = 0.6 oz pur e alcohol) Sex and Gender Information Value Date Recorded Sex Assigned at Not on file Legal Sex Male 1:33 AM CONTACT LENS EDGE BUFFER Gender Identity Not on file Sexual Orientation Not on file documented as of this encounter Plan of Treatment Upcoming Encounters Date Type Department Care Team (Late Contact Info) Description 07/04/2025 8:00 AM CDT Ancillary Procedure [facility] Vascular Lab and Vein Center- [place] [address] [place] [address] Luther Babin NP [address] [place] [address] 07/04/2025 8:30 AM CDT Ancillary Procedure [facility] Vascular Lab and Vein Center- [place] [address] [place] [address] Luther Babin NP [address] [facility] [address] [place] [address] 07/04/2025 9:30 AM CDT Office Visit [facility] Vascular Surgery [place] [address] [facility] [address] [place] [address] Luther Babin NP [address] [facility] [address] [place] [address] documented as of this encounter Visit Diagnoses Not on filedocumented in this encounter Care Teams Cost Recovery Technician Relationship Specialty Start Date End Date Radu Dallas DO [address] [place] [address] [address] [place] [phone] PCP - General Family Practice 10/13/24 documented as of this encounter
--- OUTSIDE RECORDS SUMMARY | 2025-02-18 20:10 | XMS_ITS | Encounter Summary ---
Author Organization [employer] [facility] Address [address] [place] [address] Care Team Providers Care Cellar Packer Name Role Phone Yesenia Maria DO Primary Care Provider [phone] Encounter Details Date Type Department Care Team (Late st Contact Info) Description 10/20/2008 Emergency [facility] [address] [place] [address] Piyush Sahu MD [address] [place] [id number] Yuri Richter MD NO ADDRESS ON FILE [...] on file Legal Sex Male 2:36 AM INSTRUMENTATION TECHNOLOGIST Gender Identity Not on file Sexual Orientation [...] Last Indicated Resolved Time R/O COVID-19 01/26/2020 01/26/202001/28/2020 1:46 AM INSTRUMENTATION TECHNOLOGIST documented as of this encounter Care Teams Cellar Packer Relationship Specialty Start Date End Date Yesenia Maria DO PCP - General Family Practice 04/18/20 07/14/20 documented as of this encounter
--- OUTSIDE RECORDS SUMMARY | 2025-02-18 20:10 | XMS_ITS | Encounter Summary ---
Author Organization [facility] Address [address] Attn: Epic Prelude ADT PREMA THAPA [address] Care Team Providers Care Replenisher Name Role Phone Yesenia Maria DO Primary Care Provider [phone] Encounter Details Date Type Department Care Team (Late st Contact Info) Description 02/06/2008 Outpatient Historical Jimmy Feliciano MD NO ADDRESS ON FILE Social History Tobacco Use Types Packs/Day Years Used Date Smoking Tobacco: Never Assessed Sex and Gender Information Value Date Recorded Sex Assigned at Not on file Legal Sex Male 2:36 AM SEED ANALYST Gender Identity Not on file Sexual Orientation Not on file documented as of this encounter Plan of Treatment Not on file documented as of this encounter Procedures Procedure Name Priority Date/Time Associated Diagnosis Comments HIV DETECTION W/REFLX CONFIRMATION Routine 02/06/2008 11:43 AM SEED ANALYST HEPATITIS B SURFACE ANTIGEN Routine 02/06/2008 11:43 AM SEED ANALYST HEPATITIS C ANTIBODY Routine 02/06/2008 11:43 AM SEED ANALYST documented in this encounter Results * HEPATITIS B SURFACE ANTIGEN (02/06/2008 11:43 AM SEED ANALYST) HEPATITIS B SURFACE AG Non-Reacti ve Non-Reacti ve [facility] Blood specimen (specimen) 02/06/2008 11:43 AM SEED ANALYST 02/06/2008 11:43 AM SEED ANALYST us Jimmy Feliciano MD CHEMISTRY ORDERABLES Final Res ult Performing Organization Address [facility] Phone Number INTERFACE SYSTEM Refer to clinic/hospital department [facility] CLIA# [id number] [address] [place] [address] * HEPATITIS C ANTIBODY (02/06/2008 11:43 AM SEED ANALYST) HEPATITIS C AB Non-React ghulam Non-React ghulam [facility] Comment: ansiHCV antibody testing is [...] desired. Blood specimen (specimen) 02/06/2008 11:43 AM SEED ANALYST 02/06/2008 11:43 AM SEED ANALYST Jimmy Feliciano MD CHEMISTRY ORDERABLES Final Res ult Performing Organization Address [facility] Phone Number INTERFACE SYSTEM Refer to clinic/[facility] CLIA# [id number] [address] [place] [address] * HIV ANTIBODY W/REFLX CONFIRMATION (02/06/2008 11:43 AM SEED ANALYST) HIV-1 AND 2 ABS Negative Negative [facility] Comment: Interpretation for HIV Results: Negative result: Negative for antibodies to HIV-1 and HIV-2 by EIA. Reactive result: Repeatedly Reactive for antibodies to HIV-1 and/or HIV-2 by EIA. Due to possible non-specific reactions from other causes, this specimen has been sent for confirmation by Western Blot. Blood specimen (specimen) 02/06/2008 11:43 AM SEED ANALYST 02/06/2008 11:43 AM SEED ANALYST us Jimmy Feliciano MD CHEMISTRY ORDERABLES Final Res ult Performing Organization Address [facility] Phone Number INTERFACE SYSTEM Refer to clinic/hospital department [facility] CLIA# [id number] [address] [place] [address] documented in this encounter Visit Diagnoses Not on filedocumented in this encounter Additional Health Concerns Infection Onset Date Last Indicated Resolved Time R/O COVID-19 01/26/2020 01/26/2020 01/28/2020 1:46 AM SEED ANALYST documented as of this encounter Care Teams Replenisher Relationship Specialty Start Date End Date Yesenia Maria DO PCP - General Family Practice 04/18/20 07/14/20 documented as of this encounter
[2025-02-18 20:13] VITALS: BP 154/78; PULSE 84; RESP 18; TEMP 36.3; O2SAT 95; BMI 33.0
--- NOTE | 2025-02-18 20:32 | W.ED.EXTPRO ---
HPI - Extremity Problem General: Chief complaint: Extremity Problem,Nontraumatic Stated complaint: LT Knee pain Time Seen by Provider: 02/18/25 20:07 Source: patient and family Mode of arrival: ambulatory Limitations: no limitations History of Present Illness: Patient is a 60-year-old male who presents to ED today with a complaint of left knee swelling over the past 2 to 3 days. Patient states he has had previous knee effusions in which he has received therapeutic arthrocentesis for. Patient states he has never followed up with an psychiatric clinical nurse specialist. No known recent injury or trauma. No recent illness. No fevers. He has not noticed any overlying redness or warmth to the joint. MD Complaint: joint swelling Onset (ago): day(s) Pain Consistency: constant Location: left and lower extremity Radiation: none Relieving factors: nothing Exacerbating factors: range of motion, weight bearing, walking and palpation Associated symptoms: Reports no associated symptoms; Deny chest pain Related Data Home Medications ?Medication ?Instructions ?Recorded ?Confirmed clopidogrel 75 mg tablet (Plavix) 75 mg PO DAILY 05/08/19 01/15/25 pantoprazole 20 mg tablet,delayed 20 mg PO DAILY 10/17/19 01/15/25 release allopurinol 100 mg tablet 100 mg PO DAILY 04/27/24 01/15/25 atorvastatin 80 mg tablet See Rx Instructions .Route .COMPLEX 04/27/24 01/15/25 fluticasone propionate 50 2 spray intranasal DAILY 04/27/24 01/15/25 mcg/actuation nasal spray,suspension hydrocodone 5 mg-acetaminophen 325 1 tab PO Q6H PRN Pain 04/27/24 01/15/25 mg tablet semaglutide 0.25 mg or 0.5 mg (2 0.5 mg SUBCUT .weekly 07/12/24 01/15/25 mg/3 mL) subcutaneous pen injector (Ozempic) insulin aspart U-100 100 unit/mL 0 - 12 unit SUBCUT TID 08/17/24 01/15/25 (3 mL) subcutaneous pen (Novolog FlexPen U-100 Insulin aspart) cyclobenzaprine 5 mg tablet 5 mg PO DAILY PRN 09/21/24 01/15/25 Previous Rx's ?Medication ?Instructions ?Recorded Diabetic Shoes with 3 sets of #1 ea 09/30/21 insoles Diabetic Shoes with 3 sets of #1 ea 11/05/21 insoles AFO to right #1 ea 12/14/22 Shoulder Immobilizer #1 ea 10/06/23 icosapent ethyl 1 gram capsule 2 g (2 x 1 gram) PO BID #180 caps 09/11/24 (Vascepa) metoprolol tartrate 25 mg tablet See Rx Instructions .Route 10/02/24 .COMPLEX #180 tabs furosemide 40 mg tablet See Rx Instructions .Route 11/14/24 .COMPLEX #60 tabs isosorbide mononitrate 30 mg 30 mg PO DAILY #90 tabs 11/14/24 tablet,extended release 24 hr sacubitril 24 mg-valsartan 26 mg 1 tab PO BID #180 tabs 01/29/25 tablet (Entresto) spironolactone 25 mg tablet See Rx Instructions .Route 02/13/25 .COMPLEX #90 tabs ibuprofen 800 mg tablet 800 mg PO Q8H PRN pain #20 tabs 02/18/25 methylprednisolone 4 mg tablets in See Rx Instructions PO .COMPLEX 02/18/25 a dose pack (Medrol (Mike)) #21 ea Allergies Allergy/AdvReac Type Severity Reaction Status Date / Time codeine AdvReac Unknown ADR-Nausea Verified 02/18/25 20:18 morphine AdvReac Unknown ADR/ALGY-Fl Verified 02/18/25 20:18 ushing Review of Systems Card: Denies: chest pain Resp: Denies: dyspnea Musc: Reports: joint pain (L knee) and joint swelling (L knee); Denies: extremity pain, extremity swelling, joint redness, joint warmth or joint stiffness Neuro: Denies: numbness in extremities, weakness in extremities or sensory changes PFSH ED PFSH: Medical History Type 2 diabetes mellitus Hypertension Cigarette smoker motivated to quit Chronic low back pain Shoulder impingement Abdominal hernia Acute right ankle pain Acute bilateral low back pain Acute pain of left shoulder Encounter for long-term opiate analgesic use Back pain with history of spinal surgery Opioid contract exists Lumbar back pain Smoker Surgical History Hx of shoulder surgery History of carpal tunnel surgery Hx of abdominal surgery Hx of oral surgery H/O sinus surgery History of lumbar surgery History of ankle surgery Family History Other Aneurysm Cancer Social History Smoking and tobacco/nicotine status: current every day tobacco/nicotine user cigarettes Packs smoked per day: 1 Alcohol intake: current Alcohol intake frequency: few times a month Substance/Drug Use: unknown Physical Exam Const: COMMON NORMALS: no acute distress, average body habitus, no limitations, alert and well nourished Resp: COMMON NORMALS: normal respiratory effort and clear to auscultation bilaterally AUSCULTATION: clear to auscultation bilaterally Cardio: COMMON NORMALS: regular rate and regular rhythm RATE: regular rate RHYTHM: regular rhythm Extremity: COMMON NORMALS: capillary refill normal, no clubbing, cyanosis or edema, no calf tenderness and no pedal edema GENERAL: Yes normal exam except as noted LEFT LOWER EXTREMITY: Yes knee joint (L knee effusion; no erythema; normal micromovements) Left knee: Yes neurovascular exam (normal) Neuro: COMMON NORMALS: moves all extremities, no focal motor deficits and no sensory deficits noted SENSORIUM/ORIENTATION: Yes alert Course Vital Signs: Vital signs: Vital Signs Temperature 97.4 F L 02/18/25 20:13 Pulse Rate 84 02/18/25 20:13 Respiratory Rate 18 02/18/25 20:13 Blood Pressure 154/78 02/18/25 20:13 Pulse Oximetry 95 02/18/25 20:13 Oxygen Delivery Me thod Room Air 02/18/25 20:13 MDM - Extremity (Nontraumatic) Medical Decision Making No known injury or trauma. I feel left knee x-rays at this time would be fairly low yield and unlikely to change overall management. Discussed how we do not routinely perform therapeutic arthrocentesis from the emergency department. Recommend he follow-up with his psychiatric clinical nurse specialist and I will place a case management referral to get him an appointment for this. Medical Records I reviewed the patient's medical records. No radiology studies performed this visit Discharge Plan Discharge Patient Disposition: Home Clinical Impression: Effusion of left knee Condition: Stable Prescriptions: New ibuprofen 800 mg tablet 800 mg PO Q8H PRN (Reason: pain) Qty: 20 0RF methylprednisolone [Medrol (Mike)] 4 mg tablets,dose pack See Rx Instructions .ROUTE .COMPLEX Qty: 21 0RF Rx Instructions: orally per package directions Discontinued diclofenac sodium 75 mg tablet,delayed release (DR/EC) 75 mg PO Q12H PRN (Reason: pain) Qty: 20 0RF No Action pantoprazole 20 mg tablet,delayed release (DR/EC) 20 mg PO DAILY clopidogrel [Plavix] 75 mg tablet 75 mg PO DAILY (DME) Diabetic Shoes with 3 sets of insoles See Rx Instructions .Route .MEDSUPPLY Qty: 1 0RF Rx Instructions: As directed by [facility] (DME) Diabetic Shoes with 3 sets of insoles See Rx Instructions .Route .MEDSUPPLY Qty: 1 0RF Rx Instructions: As directed by HOME (DME) Shoulder Immobilizer See Rx Instructions .Route .MEDSUPPLY Qty: 1 0RF Rx Instructions: As directed Ozempic 0.25 mg or 0.5 mg (2 mg/3 mL) pen injector 0.5 mg SUBCUT .weekly (DME) AFO to right See Rx Instructions .Route .MEDSUPPLY Qty: 1 0RF Rx Instructions: As directed by the brigid ruiz icosapent ethyl [Vascepa] 1 gram capsule 2 g PO BID Qty: 180 3RF metoprolol tartrate 25 mg tablet See Rx Instructions .ROUTE .COMPLEX Qty: 180 3RF Dose Instruction: Take 1 tablet by mouth twice daily Rx Instructions: Take 1 tablet by mouth twice daily isosorbide mononitrate 30 mg tablet extended release 24 hr 30 mg PO DAILY Qty: 90 3RF furosemide 40 mg tablet See Rx Instructions .ROUTE .COMPLEX Qty: 60 3RF Dose Instruction: Take 1 tablet by mouth twice daily Rx Instructions: Take 1 tablet by mouth twice daily Entresto 24-26 mg tablet 1 tab PO BID Qty: 180 1RF spironolactone 25 mg tablet See Rx Instructions .ROUTE .COMPLEX Qty: 90 3RF Dose Instruction: Take 1 tablet by mouth once daily Rx Instructions: Take 1 tablet by mouth once daily atorvastatin 80 mg Tablet See Rx Instructions .ROUTE .COMPLEX Rx Instructions: TAKE 1 TABLET BY MOUTH EVERY EVENING WITH DINNER hydrocodone-acetaminophen 5-325 mg Tablet 1 tab PO Q6H PRN (Reason: Pain) allopurinol 100 mg Tablet 100 mg PO DAILY fluticasone propionate 50 mcg/actuation [place],Suspension 2 spray INTRANASAL DAILY Rx Instructions: administer into each nostril cyclobenzaprine 5 mg tablet 5 mg PO DAILY PRN insulin aspart U-100 [Novolog FlexPen U-100 Insulin] 100 unit/mL (3 mL) Insulin Pen 0 - 12 unit SUBCUT TID Rx Instructions: inject 0-12 units with meals 3 times daily Discharge Orders: Discharge ED (Routine); Ordered 02/18/25 Ordered By: Kristen Abraham Referrals: Chayo Fu FNP [Primary Care Provider, Cardiology] Patient Instructions: Swollen Knee Joint (ED), Patient Portal & Shellie Instructions Activity Restrictions/Additional Instructions: We discussed, continue wearing knee brace and ice the knee to help with swelling. We will place you on steroids and anti-inflammatories. I have placed a case management referral to get you an appointment with your psychiatric clinical nurse specialist, Dr. Sandoval for further evaluation. Print Language: Omani Coding Level of Care Code ED Section Leader for Oren Small
[2025-02-18 20:56] VITALS: BP 141/80; PULSE 98; TEMP 36.8; O2SAT 94
== END 2025-02-18 21:16 | disposition home or self-care (01) ==
PROVIDERS: Emergency Provider Physician Assistant; PCP Nurse Practitioner Family
DX: M25.462 Effusion, left knee (principal); Z79.02 Long term (current) use of antithrombotics/antiplatelets; Z79.4 Long term (current) use of insulin; F17.210 Nicotine dependence, cigarettes, uncomplicated; E11.9 Type 2 diabetes mellitus without complications; I10 Essential (primary) hypertension
CPT/HCPCS: 96372; 99284; J1100; J1885

== ENCOUNTER → 2025-02-21 14:41 | Outpatient (BNVA) | payer MEDICARE, SELFPAY | PROVIDERS: PCP Nurse Practitioner Family; Visit Provider Physician Assistant | DX: M17.12 Unilateral primary osteoarthritis, left knee (principal); M25.462 Effusion, left knee | CPT/HCPCS: 20610; 73560; 73565; 99213; J3301; J9999 ==

== ENCOUNTER 2025-03-09 13:08 | Emergency (ER) | payer MEDICARE, SELFPAY ==
--- OUTSIDE RECORDS SUMMARY | 2025-03-09 13:12 | XMS_ITS | Clinical Summary ---
Author Organization [facility] Address [address] [place] [address] Care Team Providers Care Sound Ranging Crewmember Name Role Phone Unavailable Primary Care Provider [...] mellitus type II, controlled, with no complications ([facility]) Diagnosis 250.00. Test blood sugar two times a day 1 Each 0 10/12/19 13 Active lancets (ACCU-CHEK FASTCLIX) Misc MiscIndications:D iabetes mellitus type II, controlled, with no complications ([facility]) Diagnosis 250.00. Test blood sugar two times [...] supper. 9 mL 11 02/05/2020 10:54 AM ELECTRONIC IMAGER 09/22/19 20 Active glimepiride (AMARYL) 4 mg [...] 60 Tablet 5 04/23/19 21 Active Insulin [place], Disposable, (BD Ultra-Fine Short Pen Needle) 31 [...] hyperglycemia, without long-term current use of insulin ([facility]) Inject 14 Units by subcutaneous injection daily at bedtime. 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 Header Operator geovanny obstructive pulmonary disease, unspecified COPD type ([facility]) 2.5 mg Inhalation ONE TIME ONLY RESPIRATORY [...] on file Legal Sex Male 2:36 AM ELECTRONIC IMAGER Gender Identity Not on file Sexual Orientation [...] CDT Respiratory Rate 12 05/10/2019 8:07 AM ELECTRONIC IMAGER Oxygen Saturation 98% 07/26/2020 8:23 AM CDT [...] 09/12/2028 09/12/2018 Medical Devices Implanted Type Area Firearms Sales Associate Device Identifier Shelf Expiration Date Model / Serial / Lot Log [id number] - Lauryn Dynesys Lumbar Fixation - 1 - Cord Dynesys 100mm Implanted:Qty: 1 on 06/16/2010 at [facility] Other N/A: Spine Lumbar [employer] 04/15/2013.. 100 / NA / [id number] Description:two in package Log [id number] - Lauryn Dynesys Lumbar Fixation - 1 - Screw Pedicle 6.4x50mm 450 Implanted:Qty: 1 on 06/16/2010 at [facility] Screw N/A: Spine Lumbar [employer] 10/13/201016. 450 / NA / [id number] Description:two screws per p ackage Screw Bio-Tenodesis 7x23mm Ar-[id number] - [id number] Implanted:Qty: 1 on 02/07/2013 by Ajay Bustamante DO at [facility] Screw Left: Shoulder [employer] 06/13/2014 [id number] / / [id number] Description:left Log [id number] - Lauryn Dynesys Lumbar Fixation - 1 - Spacer Dynesys 45mm 2/Ea .645 Implanted:Qty: 1 on 06/16/2010 at [facility] Spacer N/A: Spine Lumbar [employer] 08/13/2012.. 645 / NA / [id number] Description:two per package Log [id number] - Lauryn Dynesys Lumbar Fixation - 1 - Spacer Dynesys 45mm 2/Ea ..645 Implanted:Qty: 1 on 06/16/2010 at [facility] Spacer N/A: Spine Lumbar [employer] 08/13/2012.74815. 645 / NA / [id number] Explanted Type Area Firearms Sales Associate Device Identifier Shelf Expiration Date Model / Serial / Lot Log [id number] - Laruyn Dynesys Lumbar Fixation - 1 - Cord Dynesys 100mm 100 Explanted:Qty: 1 on 06/16/2010 at [facility] Other N/A: Spine Lumbar [employer] [id number] 00 / NA / NA Description:EXPLANTED EXISTI NG HARDWARE DUE TO NEED FOR EXTENSION PER RADHA LAURYN REP Log [id number] - Lauryn Dynesys Lumbar Fixation - 1 - Spacer Dynesys 45mm 2/Ea [id number] Explanted:Qty: 1 on 06/16/2010 at [facility] Spacer N/A: Spine Lumbar [employer] 42463.6 45 / NA / NA Description:EXPLANTED EXISTI NG HARDWARE DUE TO NEED FOR EXTENSION PER RADHA LAURYN REP Procedures Procedure Name Priority Date/Time Associated Diagnosis Comments HEMOGLOBIN A1C Routine 07/26/2020 8:45 AM CDT Type 2 diabetes mellitus with hyperglycemia, without long-term current use of insulin ([facility]) MICROALBUMIN/CREATI NINE RATIO, RANDOM UR Routine 07/26/2020 8:26 AM CDT Type 2 diabetes mellitus with hyperglycemia, without long-term current use of insulin ([facility]) LIPID PANEL Routine 04/19/2020 8:34 AM ELECTRONIC IMAGER Essential hypertension from Last 3 Months or Most Recently Relevant to Health Maintenance Results * (ABNORMAL) HEMOGLOBIN A1C (07/26/2020 8:45 AM CDT) HEMOGLOBIN A1C 8.2(H) See Comment % 07/26/2020 6:06 PM CDT [facility] EST. AVG GLUCOSE, A1C 189 mg/dL 07/26/2020 6:06 PM CDT [facility] Blood Venipuncture / Unknown 07/26/2020 8:45 AM CDT 07/26/2020 8:45 AM CDT Narrative [facility] - 07/26/2020 6:06 PM CDT HGB A1C INTERPRETATION NORMAL: <5.7% PRE-DIABETES: 5.7 - 6.4% DIABETES: 6.5% OR GREATER Falsely low A1C measurements can occur when: 1. Anemia and/or hemolytic anemia is present. 2. Hemoglobin variants present. 3. Renal failure. 4. Transfusion of blood product in the last 120 days. We recommend ordering a fructosamine test([id number]) to more accurately assess glycemic status if any of the above conditions are present. Princess Lopez NP CHEMISTRY ORDERABLES Final Result Performing Organization Address City/[facility]/ZIP Co de Phone Number [facility] CLIA# [id number] [address] [place] [address] * (ABNORMAL) MICROALBUMIN/CREATININE RATIO, RANDOM UR (07/26/2020 8:26 AM CDT) MICROALBUMIN, URINE 10.0 No Reference Range mg/dL 07/26/2020 5:37 PM CDT [facility] CREATININE, URINE 51.6 40.0 - 278.0 mg/dL 07/26/2020 5:37 PM CDT [facility] Comment:Reference Range vari es with fluid intake and diet. MICROALBUMIN/ CREAT RATIO, UR 193.8(H) <17.0 mg/g 07/26/2020 5:37 PM CDT [facility] Urine URINE SPECIMEN OBTAINED BY CLEAN CATCH PROCEDURE / Unknown Collection / Unknown 07/26/2020 8:26 AM CDT 07/26/2020 8:26 AM CDT Narrative [facility] - 07/26/2020 5:37 PM CDT Condition Microalbumin/Creat ratio Normal Males <17 Normal Females <25 Microalbuminuria Males 17-299 Microalbuminuria Females 25-299 Overt proteinuria >=300 us Princess Lopez NP URINE ORDERABLES Final Res ult [facility] CLIA# [id number] [address] [place] [address] * (ABNORMAL) LIPID PANEL (04/19/2020 8:34 AM ELECTRONIC IMAGER) CHOLESTEROL 144 <200 mg/dL 04/19/2020 4:40 PM [facility] TRIGLYCERIDE 582(H) <150 mg/dL 04/19/2020 4:40 PM [facility] HDL 22(L) 40 - 59 mg/dL 04/19/2020 4:40 PM [facility] LDL CALCULATED 04/19/2020 4:40 PM [facility] Comment:Calculated LDL is no t accurate when the Triglyceride value exceeds 400. NON-HDL CHOLESTEROL 122 <130 mg/dL 04/19/2020 4:40 PM [facility] Blood Venipuncture / Unknown 04/19/2020 8:34 AM ELECTRONIC IMAGER 04/19/2020 8:34 AM ELECTRONIC IMAGER Narrative [facility] - 04/19/2020 4:40 PM ELECTRONIC IMAGER TOTAL CHOLESTEROL mg/dL Desirable <200 Borderline high [...] Princess Lopez NP CHEMISTRY ORDERABLES Final Result [facility] CLIA# [id number] [address] [place] [address] from Last 3 Months or Most Recently Relevant to Health Maintenance Insurance [place]ICA[place] MED[place] PART A AND B RX [facility] Medicare Part D RX [employer] Medicaid ([place]) [id number] [address] [phone] Advance Directives For more information, please contact: [phone] * Full Code (Latest Code Status on [...]
--- OUTSIDE RECORDS SUMMARY | 2025-03-09 13:12 | XMS_ITS | Encounter Summary ---
Author Organization [facility] Address [address] [place] [address] Care Team Providers Care Electric Motor Assembler And Tester Name Role Phone MariaYesenia dawson Primary Care Provider [phone] Encounter Details Date Type Department Care Team (Late st Contact Info) Description 12/19/2012 Ancillary Orders [facility] [place] [address] Ajay Bustamante, DO [address] [place] [address] Shoulder pain (Primary Dx) Social [...] on file Legal Sex Male 2:36 AM OIL GAS AND PIPE TESTER Gender Identity Not on file Sexual [...] of the glenohumeral joint. Ajay Bustamante D.O. [facility] CDM:didier Procedure Note Ajay Bustamante DO - 12/29/2012 X-RAYS: The x-rays of the left shoulder were reviewed and revealed Grade 3acromion with mild degeneration of the AC joint. Minimal degenerativechanges of the glenohumeral joint. Ajay Bustamante D.O. [facility] CDM:didier Ajay Bustamante DO DIAGNOSTIC IMAGING ORDERABLES Final Result documented in this encounter Visit Diagnoses Diagnosis Shoulder pain- Primary Pain in joint, shoulder region documented in this encounter Additional Health Concerns Infection Onset Date Last Indicated Resolved Time R/O COVID-19 01/26/2020 01/26/2020 01/28/2020 1:46 AM OIL GAS AND PIPE TESTER documented as of this encounter Care Teams Electric Motor Assembler And Tester Relationship Specialty Start Date End Date Yesenia Maria DO PCP - General Family Practice 04/18/20 07/14/20 documented as of this encounter
--- OUTSIDE RECORDS SUMMARY | 2025-03-09 13:12 | XMS_ITS | Encounter Summary ---
Author Organization [facility] Address [address] [place] [address] Care Team Providers Care Maintenance Foreman Name Role Phone Yesenia Maria DO Primary Care Provider [phone] Encounter Details Date Type Department Care Team (Late st Contact Info) Description 11/18/2009 Emergency [facility] [address] [place] [address] Trent Davis MD NO ADDRESS ON FILE [...] on file Legal Sex Male 2:36 AM SHOPPER Gender Identity Not on file Sexual Orientation Not on file documented as of this encounter Plan of Treatment Not on file documented as of this encounter Visit Diagnoses Diagnosis Lumbago- Primary documented in this encounter Additional Health Concerns Infection Onset Date Last Indicated Resolved Time R/O COVID-19 01/26/2020 01/26/2020 01/28/2020 1:46 AM SHOPPER documented as of this encounter Care Teams Maintenance Foreman Relationship Specialty Start Date End Date Yesenia Maria DO PCP - General Family Practice 04/18/20 07/14/20 documented as of this encounter
--- OUTSIDE RECORDS SUMMARY | 2025-03-09 13:12 | XMS_ITS | Encounter Summary ---
Author Organization [facility] Address [address] [place] [address] Care Team Providers Care Copy Clerk Name Role Phone Yesenia Maria DO Primary Care Provider [phone] Encounter Details Date Type Department Care Team (Latest Contact Info) Description 10/07/1999 Outpatient Historical [facility] Medicine [address] [place] [phone] Yuri Richter MD NO ADDRESS ON FILE Backache, unspecified (Primary Dx) Social History Tobacco Use Types Packs/Day Years Used Date Smoking Tobacco: Never Assessed Sex and Gender Information Value Date Recorded Sex Assigned at Not on file Legal Sex Male 2:36 AM PRECISION LENS TECHNICIAN Gender Identity Not on file Sexual Orientation Not on file documented as of this encounter Plan of Treatment Not on file documented as of this encounter Visit Diagnoses Diagnosis Backache, unspecified- Primary documented in this encounter Additional Health Concerns Infection Onset Date Last Indicated Resolved Time R/O COVID-19 01/26/2020 01/26/2020 01/28/2020 1:46 AM PRECISION LENS TECHNICIAN documented as of this encounter Care Teams Copy Clerk Relationship Specialty Start Date End Date Yesenia Maria DO PCP - General Family Practice 04/18/20 07/14/20 documented as of this encounter
--- OUTSIDE RECORDS SUMMARY | 2025-03-09 13:12 | XMS_ITS | Encounter Summary ---
Author Organization [facility] Address [address] [place] [address] Care Team Providers Care Photo Printer Name Role Phone Yesenia Maria DO Primary Care Provider [phone] Encounter Details Date Type Department Care Team (Late st Contact Info) Description 11/16/2009 Emergency [facility] [address] [place] [address] Maverick Grace PA [address] [place] [address] Lumbago (Primary Dx); Other Chronic [...] file Legal Sex Male 2:36 AM METAL SPRAY OPERATOR Gender Identity Not on file Sexual Orientation Not on file documented as of this encounter Plan of Treatment Not on file documented as of this encounter Visit Diagnoses Diagnosis Lumbago- Primary Other chronic pain documented in this encounter Additional Health Concerns Infection Onset Date Last Indicated Resolved Time R/O COVID-19 01/26/2020 01/26/2020 01/28/2020 1:46 AM METAL SPRAY OPERATOR documented as of this encounter Care Teams Photo Printer Relationship Specialty Start Date End Date Yesenia Maria DO PCP - General Family Practice 04/18/20 07/14/20 documented as of this encounter
--- OUTSIDE RECORDS SUMMARY | 2025-03-09 13:12 | XMS_ITS | Encounter Summary ---
Author Organization [facility] Address [address] [place] [address] Care Team Providers Care Staff Electrical Engineer Name Role Phone Yesenia Maria DO Primary Care Provider [phone] Encounter Details Date Type Department Care Team (Late st Contact Info) Description 07/04/2009 Outpatient Historical [facility] [address] [place] [address] Jadyn Hair, PAGopal [address] [place] [phone] Stiffness of Joint, not Elsewhere Classified, Ankle [...] on file Legal Sex Male 2:36 AM RELIABILITY ENGINEER Gender Identity Not on file Sexual [...] R/O COVID-19 01/26/2020 01/26/2020 01/28/2020 1:46 AM RELIABILITY ENGINEER documented as of this encounter Care Teams Staff Electrical Engineer Relationship Specialty Start Date End Date Yesenia Maria DO PCP - General Family Practice 04/18/20 07/14/20 documented as of this encounter
--- OUTSIDE RECORDS SUMMARY | 2025-03-09 13:13 | XMS_ITS | Encounter Summary ---
Author Organization [facility] Address [address] [place] [address] Care Team Providers Care Environmental Designer Name Role Phone Yesenia Maria DO Primary Care Provider [phone] Encounter Details Date Type Department Care Team (Latest Contact Info) Description 08/19/2006 Outpatient Historical [facility] [place] [phone] Ajay Bustamante, DO [address] [place] [address] Unspecified Site of Ankle Sprain and Strain (Primary Dx) Social History Tobacco Use Types Packs/Day Years Used Date Smoking Tobacco: Never Assessed Sex and Gender Information Value Date Recorded Sex Assigned at Not on file Legal Sex Male 2:36 AM SLINGER SEQUINS Gender Identity Not on file Sexual Orientation Not on file documented as of this encounter Plan of Treatment Not on file documented as of this encounter Visit Diagnoses Diagnosis Sprain of ankle, unspecified site- Primary documented in this encounter Additional Health Concerns Infection Onset Date Last Indicated Resolved Time R/O COVID-19 01/26/2020 01/26/2020 01/28/2020 1:46 AM SLINGER SEQUINS documented as of this encounter Care Teams Environmental Designer Relationship Specialty Start Date End Date Yesenia Maria DO PCP - General Family Practice 04/18/20 07/14/20 documented as of this encounter
--- OUTSIDE RECORDS SUMMARY | 2025-03-09 13:13 | XMS_ITS | Encounter Summary ---
Author Organization [facility] Address [address] [place] [address] Care Team Providers Care Typewriter Ribbon Winder Name Role Phone Yesenia Maria DO Primary Care Provider [phone] Encounter Details Date Type Department Care Team (Latest Contact Info) Description 04/21/2004 Outpatient Historical [facility] Medicine [address] [place] [phone] Yuri Richter MD NO ADDRESS ON FILE HYPERTENSION NOS (Primary Dx) Social History Tobacco Use Types Packs/Day Years Used Date Smoking Tobacco: Never Assessed Sex and Gender Information Value Date Recorded Sex Assigned at Not on file Legal Sex Male 2:36 AM HOSEMAN Gender Identity Not on file Sexual Orientation Not on file documented as of this encounter Plan of Treatment Not on file documented as of this encounter Visit Diagnoses Diagnosis Unspecified essential hypertension- Primary documented in this encounter Additional Health Concerns Infection Onset Date Last Indicated Resolved Time R/O COVID-19 01/26/2020 01/26/2020 01/28/2020 1:46 AM HOSEMAN documented as of this encounter Care Teams Typewriter Ribbon Winder Relationship Specialty Start Date End Date Yesenia Maria DO PCP - General Family Practice 04/18/20 07/14/20 documented as of this encounter
--- OUTSIDE RECORDS SUMMARY | 2025-03-09 13:13 | XMS_ITS | Encounter Summary ---
Author Organization [facility] Address [address] [place] [address] Care Team Providers Care Threading Machine Feeder Automatic Name Role Phone Yesenia Maria DO Primary Care Provider Encounter Details Date Type Department Care Team (Latest Contact Info) Description 07/05/2006 Outpatient Historical [facility] Medicine [address] [place] [phone] Yuri Richter MD NO ADDRESS ON FILE Pure Hypercholesterolem (Primary Dx); Unspecified Essential Hypertension; Unspecified Chest Pain; Other Abnormal Glucose Social History Tobacco Use Types Packs/Day Years Used Date Smoking Tobacco: Never Assessed Sex and Gender Information Value Date Recorded Sex Assigned at Not on file Legal Sex Male 2:36 AM BUSINESS MANAGEMENT MANAGER Gender Identity Not on file Sexual [...] COVID-19 01/26/2020 01/26/2020 01/28/2020 1:46 AM BUSINESS MANAGEMENT MANAGER documented as of this encounter Care Teams Threading Machine Feeder Automatic Relationship Specialty Start Date End Date Yesenia Maria DO PCP - General Family Practice 04/18/20 07/14/20 documented as of this encounter
--- OUTSIDE RECORDS SUMMARY | 2025-03-09 13:13 | XMS_ITS | Encounter Summary ---
Author Organization [facility] Address [address] [place] [address] Care Team Providers Care Winding Rack Operator Name Role Phone Yesenia Maria DO Primary Care Provider [phone] Encounter Details Date Type Department Care Team (Latest Contact Info) Description 03/19/2006 Outpatient Historical [facility] [address] [place] [phone] Steve Eugene MD NO ADDRESS ON FILE Chronic Maxillary Sinusitis (Primary Dx) Social History Tobacco Use Types Packs/Day Years Used Date Smoking Tobacco: Never Assessed Sex and Gender Information Value Date Recorded Sex Assigned at Not on file Legal Sex Male 2:36 AM WOOD SHINGLE ROOFER Gender Identity Not on file Sexual Orientation Not on file documented as of this encounter Plan of Treatment Not on file documented as of this encounter Visit Diagnoses Diagnosis Chronic maxillary sinusitis- Primary documented in this encounter Additional Health Concerns Infection Onset Date Last Indicated Resolved Time R/O COVID-19 01/26/2020 01/26/2020 01/28/2020 1:46 AM WOOD SHINGLE ROOFER documented as of this encounter Care Teams Winding Rack Operator Relationship Specialty Start Date End Date Yesenia Maria DO PCP - General Family Practice 04/18/20 07/14/20 documented as of this encounter
--- OUTSIDE RECORDS SUMMARY | 2025-03-09 13:13 | XMS_ITS | Encounter Summary ---
Author Organization [facility] Address [address] [place] [address] Care Team Providers Care Electronic Masking System Operator Name Role Phone Yesenia Maria DO Primary Care Provider [phone] Encounter Details Date Type Department Care Team (Latest Contact Info) Description 10/16/2002 Outpatient Historical [facility] Medicine [address] [place] [phone] Yuri Richter MD NO ADDRESS ON FILE Pure hypercholesterolem (Primary Dx); HYPERTENSION NOS Social History Tobacco Use Types Packs/Day Years Used Date Smoking Tobacco: Never Assessed Sex and Gender Information Value Date Recorded Sex Assigned at Not on file Legal Sex Male 2:36 AM MILLING SUPERVISOR Gender Identity Not on file Sexual Orientation Not on file documented as of this encounter Plan of Treatment Not on file documented as of this encounter Visit Diagnoses Diagnosis Pure hypercholesterolem- Primary Pure hypercholesterolemia Unspecified essential hypertension documented in this encounter Additional Health Concerns Infection Onset Date Last Indicated Resolved Time R/O COVID-19 01/26/2020 01/26/2020 01/28/2020 1:46 AM MILLING SUPERVISOR documented as of this encounter Care Teams Electronic Masking System Operator Relationship Specialty Start Date End Date Yesenia Maria DO PCP - General Family Practice 04/18/20 07/14/20 documented as of this encounter
--- OUTSIDE RECORDS SUMMARY | 2025-03-09 13:13 | XMS_ITS | Encounter Summary ---
Author Organization [facility] Address [address] [place] [address] Care Team Providers Care Base Filler Name Role Phone Yesenia Maria DO Primary Care Provider [phone] Encounter Details Date Type Department Care Team (Late st Contact Info) Description 08/15/2006 Outpatient Historical [address] [place] [phone] Maya Shetty DO [address] [place] [address] [address] [place] [address] Unspecified Closed Fracture of Ankle (Primary Dx) Social History Tobacco Use Types Packs/Day Years Used Date Smoking Tobacco: Never Assessed Sex and Gender Information Value Date Recorded Sex Assigned at Not on file Legal Sex Male 2:36 AM SIDE PULLER Gender Identity Not on file Sexual Orientation Not on file documented as of this encounter Plan of Treatment Not on file documented as of this encounter Visit Diagnoses Diagnosis Unspecified closed fracture of ankle- Primary documented in this encounter Additional Health Concerns Infection Onset Date Last Indicated Resolved Time R/O COVID-19 01/26/2020 01/26/2020 01/28/2020 1:4 6 AM SIDE PULLER documented as of this encounter Care Teams Base Filler Relationship Specialty Start Date End Date Yesenia Maria DO PCP - General Family Practice 04/18/20 07/14/20 documented as of this encounter
--- OUTSIDE RECORDS SUMMARY | 2025-03-09 13:13 | XMS_ITS | Encounter Summary ---
Author Organization [facility] Address [address] [place] [address] Care Team Providers Care Financial Specialist Name Role Phone Yesenia Maria DO Primary Care Provider [phone] Encounter Details Date Type Department Care Team (Latest Contact Info) Description 05/25/2006 Outpatient Historical [facility] Medicine [address] [place] [phone] Yuri Richter MD NO ADDRESS ON FILE Intestinal Infection due to Other Organism, NEC (Primary Dx); Unspecified Backache Social History Tobacco Use Types Packs/Day Years Used Date Smoking Tobacco: Never Assessed Sex and Gender Information Value Date Recorded Sex Assigned at Not on file Legal Sex Male 2:36 AM BLOOD BANK TECHNOLOGIST Gender Identity Not on file Sexual Orientation Not on file documented as of this encounter Plan of Treatment Not on file documented as of this encounter Visit Diagnoses Diagnosis Intestinal infection due to other organism, not elsewhere classified- Primary Backache, unspecified documented in this encounter Additional Health Concerns Infection Onset Date Last Indicated Resolved Time R/O COVID-19 01/26/2020 01/26/2020 01/28/2020 1:46 AM BLOOD BANK TECHNOLOGIST documented as of this encounter Care Teams Financial Specialist Relationship Specialty Start Date End Date Yesenia Maria DO PCP - General Family Practice 04/18/20 07/14/20 documented as of this encounter
--- OUTSIDE RECORDS SUMMARY | 2025-03-09 13:13 | XMS_ITS | Encounter Summary ---
Author Organization [facility] Address [address] [place] [address] Care Team Providers Care Confidential Investigator Name Role Phone Yesenia Maria DO Primary Care Provider [phone] Encounter Details Date Type Department Care Team (Latest Contact Info) Description 2006 Outpatient Historical [facility] Medicine [address] [place] [phone] Yuri Richter MD NO ADDRESS ON FILE Vaccine for influenza (Primary Dx) Social History Tobacco Use Types Packs/Day Years Used Date Smoking Tobacco: Never Assessed Sex and Gender Information Value Date Recorded Sex Assigned at Not on file Legal Sex Male 2:36 AM REPORT CHECKER Gender Identity Not on file Sexual Orientation Not on file documented as of this encounter Plan of Treatment Not on file documented as of this encounter Visit Diagnoses Diagnosis Vaccine for influenza- Primary Need for prophylactic vaccination and inoculation against influenza documented in this encounter Additional Health Concerns Infection Onset Date Last Indicated Resolved Time R/O COVID-19 01/26/2020 01/26/2020 01/28/2020 1:46 AM REPORT CHECKER documented as of this encounter Care Teams Confidential Investigator Relationship Specialty Start Date End Date Yesenia Maria DO PCP - General Family Practice 04/18/20 07/14/20 documented as of this encounter
--- OUTSIDE RECORDS SUMMARY | 2025-03-09 13:13 | XMS_ITS | Encounter Summary ---
Author Organization [facility] Address [address] [place] [address] Care Team Providers Care Order Management Specialist Name Role Phone Yesenia Maria DO Primary Care Provider [phone] Encounter Details Date Type Department Care Team (Late st Contact Info) Description 06/24/2009 Outpatient Historical [facility] [address] [place] [address] Jadyn Hair, PAGopal [address] [place] [address] Pain in Joint, Shoulder Region [...] on file Legal Sex Male 2:36 AM SHELL SIEVE OPERATOR Gender Identity Not on file Sexual [...] R/O COVID-19 01/26/2020 01/26/2020 01/28/2020 1:46 AM SHELL SIEVE OPERATOR documented as of this encounter Care Teams Order Management Specialist Relationship Specialty Start Date End Date Yesenia Maria DO PCP - General Family Practice 04/18/20 07/14/20 documented as of this encounter
--- OUTSIDE RECORDS SUMMARY | 2025-03-09 13:13 | XMS_ITS | Encounter Summary ---
Author Organization [facility] Address [address] [place] [address] Care Team Providers Care Slitting Machine Feeder Name Role Phone Yesenia Maria DO Primary Care Provider [phone] Encounter Details Date Type Department Care Team (Latest Contact Info) Description 03/22/2003 Outpatient Historical [facility] Medicine [address] [place] [phone] Gregor Bro MD NO ADDRESS ON FILE Pain in limb (Primary Dx) Social History Tobacco Use Types Packs/Day Years Used Date Smoking Tobacco: Never Assessed Sex and Gender Information Value Date Recorded Sex Assigned at Not on file Legal Sex Male 2:36 AM DIVIDING MACHINE OPERATOR Gender Identity Not on file Sexual Orientation Not on file documented as of this encounter Plan of Treatment Not on file documented as of this encounter Visit Diagnoses Diagnosis Pain in limb- Primary Pain in soft tissues of limb documented in this encounter Additional Health Concerns Infection Onset Date Last Indicated Resolved Time R/O COVID-19 01/26/2020 01/26/2020 01/28/2020 1:46 AM DIVIDING MACHINE OPERATOR documented as of this encounter Care Teams Slitting Machine Feeder Relationship Specialty Start Date End Date Yesenia Maria DO PCP - General Family Practice 04/18/20 07/14/20 documented as of this encounter
--- OUTSIDE RECORDS SUMMARY | 2025-03-09 13:13 | XMS_ITS | Encounter Summary ---
Author Organization [facility] Address [address] [place] [address] Care Team Providers Care Fur Repair Inspector Name Role Phone Yesenia Maria DO Primary Care Provider [phone] Encounter Details Date Type Department Care Team (Latest Contact Info) Description 03/01/2006 Outpatient Historical [facility] Th[facility]- [address] [place] [address] Steve Eugene MD NO ADDRESS ON FILE Hypertrph Nasal Turbinat (Primary Dx); Deviated Nasal Septum; Unspecified Sinusitis (Chronic) Social History Tobacco Use Types Packs/Day Years Used Date Smoking Tobacco: Never Assessed Sex and Gender Information Value Date Recorded Sex Assigned at Not on file Legal Sex Male 2:36 AM CAPTAIN AIRLINE PILOT Gender Identity Not on file Sexual Orientation [...] R/O COVID-19 01/26/2020 01/26/2020 01/28/2020 1:46 AM CAPTAIN AIRLINE PILOT documented as of this encounter Care Teams Fur Repair Inspector Relationship Specialty Start Date End Date Yesenia Maria DO PCP - General Family Practice 04/18/20 07/14/20 documented as of this encounter
--- OUTSIDE RECORDS SUMMARY | 2025-03-09 13:13 | XMS_ITS | Encounter Summary ---
Author Organization [facility] Address [address] [place] [address] Care Team Providers Care Process Controller Name Role Phone Yesenia Maria DO Primary Care Provider [phone] Encounter Details Date Type Department Care Team (Latest Contact Info) Description 02/15/2006 Outpatient Historical [facility] and Throat[address] [place] [address] Nilda Hodges, BRACELET FORMER [address] [facility] [place] [phone] Hypertrph Nasal Turbinat (Primary Dx); Deviated Nasal Septum; Allergic Rhinitis, Cause Unspecified; Unspecified Sinusitis (Chronic) Social History Tobacco Use Types Packs/Day Years Used Date Smoking Tobacco: Never Assessed Sex and Gender Information Value Date Recorded Sex Assigned at Not on file Legal Sex Male 2:36 AM WEATHERCASTER Gender Identity Not on file Sexual Orientation [...] R/O COVID-19 01/26/2020 01/26/2020 01/28/2020 1:46 AM WEATHERCASTER documented as of this encounter Care Teams Process Controller Relationship Specialty Start Date End Date Yesenia Maria DO PCP - General Family Practice 04/18/20 07/14/20 documented as of this encounter
--- OUTSIDE RECORDS SUMMARY | 2025-03-09 13:13 | XMS_ITS | Encounter Summary ---
Author Organization [facility] Address [address] [place] [address] Care Team Providers Care Director Of Institutional Sales Name Role Phone Yesenia Maria DO Primary Care Provider [phone] Encounter Details Date Type Department Care Team (Late st Contact Info) Description 10/06/2006 Outpatient Historical [facility] [place] [phone] Jadyn Hair, PAIvaniaC [address] [place] [address] Unspecified Site of Ankle Sprain and Strain (Primary Dx) Social History Tobacco Use Types Packs/Day Years Used Date Smoking Tobacco: Never Assessed Sex and Gender Information Value Date Recorded Sex Assigned at Not on file Legal Sex Male 2:36 AM FORKLIFT MATERIAL HANDLER Gender Identity Not on file Sexual Orientation Not on file documented as of this encounter Plan of Treatment Not on file documented as of this encounter Visit Diagnoses Diagnosis Sprain of ankle, unspecified site- Primary documented in this encounter Additional Health Concerns Infection Onset Date Last Indicated Resolved Time R/O COVID-19 01/26/2020 01/26/2020 01/28/2020 1:46 AM FORKLIFT MATERIAL HANDLER documented as of this encounter Care Teams Director Of Institutional Sales Relationship Specialty Start Date End Date Yesenia Maria DO PCP - General Family Practice 04/18/20 07/14/20 documented as of this encounter
--- OUTSIDE RECORDS SUMMARY | 2025-03-09 13:13 | XMS_ITS | Encounter Summary ---
Author Organization [facility] Address [address] [place] [address] Care Team Providers Care Change Of Address Clerk Name Role Phone Yesenia Maria DO Primary Care Provider [phone] Encounter Details Date Type Department Care Team (Latest Contact Info) Description 11/20/2002 Outpatient Historical [facility] Medicine [address] [place] [address] Yuri Richter MD NO ADDRESS ON FILE DIABETES UNCOMPL ADULT-TYPE II (CMS/HCC) (Primary Dx); Pure hypercholesterolem; HYPERTENSION NOS Social History Tobacco Use Types Packs/Day Years Used Date Smoking Tobacco: Never Assessed Sex and Gender Information Value Date Recorded Sex Assigned at Not on file Legal Sex Male 2:36 AM PROJECT LEAD Gender Identity Not on file Sexual Orientation [...] R/O COVID-19 01/26/2020 01/26/2020 01/28/2020 1:46 AM PROJECT LEAD documented as of this encounter Care Teams Change Of Address Clerk Relationship Specialty Start Date End Date Yesenia Maria DO PCP - General Family Practice 04/18/20 07/14/20 documented as of this encounter
--- OUTSIDE RECORDS SUMMARY | 2025-03-09 13:13 | XMS_ITS | Encounter Summary ---
Author Organization [facility] Address [address] [place] [address] Care Team Providers Care Boom Supervisor Name Role Phone Yesenia Maria DO Primary Care Provider [phone] Encounter Details Date Type Department Care Team (Latest Contact Info) Description 03/26/2006 Outpatient [facility] Th[facility] [address] [place] [phone] Steve Eugene MD NO ADDRESS ON FILE Follow-Up Examination, Following Unspecified Surgery (Primary Dx) Social History Tobacco Use Types Packs/Day Years Used Date Smoking Tobacco: Never Assessed Sex and Gender Information Value Date Recorded Sex Assigned at Not on file Legal Sex Male 2:36 AM CHIEF ENGINEER'S HELPER Gender Identity Not on file Sexual Orientation Not on file documented as of this encounter Plan of Treatment Not on file documented as of this encounter Visit Diagnoses Diagnosis Follow-up examination, following unspecified surgery- Primary documented in this encounter Additional Health Concerns Infection Onset Date Last Indicated Resolved Time R/O COVID-19 01/26/2020 01/26/2020 01/28/2020 1:46 AM CHIEF ENGINEER'S HELPER documented as of this encounter Care Teams Boom Supervisor Relationship Specialty Start Date End Date Yesenia Maria DO PCP - General Family Practice 04/18/20 07/14/20 documented as of this encounter
--- OUTSIDE RECORDS SUMMARY | 2025-03-09 13:13 | XMS_ITS | Encounter Summary ---
Author Organization [facility] Address [address] [place] [address] Care Team Providers Care Edge Cutter Name Role Phone Yesenia Maria DO Primary Care Provider [phone] Encounter Details Date Type Department Care Team (Late st Contact Info) Description 08/05/2006 Outpatient Historical [facility] Pulmonology-[facility] [address] [place] [phone] Social History Tobacco Use Types Packs/Day Years Used Date Smoking Tobacco: Never Assessed Sex and Gender Information Value Date Recorded Sex Assigned at Not on file Legal Sex Male 2:36 AM DIAMOND SAWER Gender Identity Not on file Sexual Orientation Not on file documented as of this encounter Plan of Treatment Not on file documented as of this encounter Visit Diagnoses Not on filedocumented in this encounter Additional Health Concerns Infection Onset Date Last Indicated Resolved Time R/O COVID-19 01/26/2020 01/26/2020 01/28/2020 1:46 AM DIAMOND SAWER documented as of this encounter Care Teams Edge Cutter Relationship Specialty Start Date End Date Yesenia Maria DO PCP - General Family Practice 04/18/20 07/14/20 documented as of this encounter
--- OUTSIDE RECORDS SUMMARY | 2025-03-09 13:13 | XMS_ITS | Encounter Summary ---
Author Organization [facility] Address [address] [place] [address] Care Team Providers Care Video Library Assistant Name Role Phone Yesenia Maria DO Primary Care Provider [phone] Encounter Details Date Type Department Care Team (Latest Contact Info) Description 03/28/2003 Outpatient Historical [facility] Medicine [address] [place] [phone] Yuri Richter MD NO ADDRESS ON FILE OLD FB IN SOFT TISSUE (Primary Dx) Social History Tobacco Use Types Packs/Day Years Used Date Smoking Tobacco: Never Assessed Sex and Gender Information Value Date Recorded Sex Assigned at Not on file Legal Sex Male 2:36 AM DIAMOND SIZER Gender Identity Not on file Sexual Orientation Not on file documented as of this encounter Plan of Treatment Not on file documented as of this encounter Visit Diagnoses Diagnosis Residual foreign body in soft tissue- Primary documented in this encounter Additional Health Concerns Infection Onset Date Last Indicated Resolved Time R/O COVID-19 01/26/2020 01/26/2020 01/28/2020 1:46 AM DIAMOND SIZER documented as of this encounter Care Teams Video Library Assistant Relationship Specialty Start Date End Date Yesenia Maria DO PCP - General Family Practice 04/18/20 07/14/20 documented as of this encounter
--- OUTSIDE RECORDS SUMMARY | 2025-03-09 13:13 | XMS_ITS | Encounter Summary ---
Author Organization [facility] Address [address] [place] [address] Care Team Providers Care Automatic Clipper And Stripper Name Role Phone Yesenia Maria DO Primary Care Provider [phone] Encounter Details Date Type Department Care Team (Latest Contact Info) Description 12/19/2002 Outpatient Historical [facility] Medicine [address] [place] [phone] Yuri Richter MD NO ADDRESS ON FILE DIABETES UNCOMPL ADULT-TYPE II (CMS/HCC) (Primary Dx); Pure hypercholesterolem; HYPERTENSION NOS Social History Tobacco Use Types Packs/Day Years Used Date Smoking Tobacco: Never Assessed Sex and Gender Information Value Date Recorded Sex Assigned at Not on file Legal Sex Male 2:36 AM APPLICATION PACKAGER Gender Identity Not on file Sexual Orientation [...] R/O COVID-19 01/26/2020 01/26/2020 01/28/2020 1:46 AM APPLICATION PACKAGER documented as of this encounter Care Teams Automatic Clipper And Stripper Relationship Specialty Start Date End Date Yesenia Maria DO PCP - General Family Practice 04/18/20 07/14/20 documented as of this encounter
--- OUTSIDE RECORDS SUMMARY | 2025-03-09 13:13 | XMS_ITS | Encounter Summary ---
Author Organization [facility] Address [address] [place] [address] Care Team Providers Care Cargo Service Supervisor Name Role Phone Yesenia Maria DO Primary Care Provider [phone] Encounter Details Date Type Department Care Team (Latest Contact Info) Description 04/12/2006 Outpatient [facility] Ear, Nose and Throat- [address] [place] [address] [place] [phone] Steve Eugene MD NO ADDRESS ON FILE Follow-Up Examination, Following Unspecified Surgery (Primary Dx) Social History Tobacco Use Types Packs/Day Years Used Date Smoking Tobacco: Never Assessed Sex and Gender Information Value Date Recorded Sex Assigned at Not on file Legal Sex Male 2:36 AM STRIP CLEANER Gender Identity Not on file Sexual Orientation Not on file documented as of this encounter Plan of Treatment Not on file documented as of this encounter Visit Diagnoses Diagnosis Follow-up examination, following unspecified surgery- Primary documented in this encounter Additional Health Concerns Infection Onset Date Last Indicated Resolved Time R/O COVID-19 01/26/2020 01/26/2020 01/28/2020 1:46 AM STRIP CLEANER documented as of this encounter Care Teams Cargo Service Supervisor Relationship Specialty Start Date End Date Yesenia Maria DO PCP - General Family Practice 04/18/20 07/14/20 documented as of this encounter
--- OUTSIDE RECORDS SUMMARY | 2025-03-09 13:13 | XMS_ITS | Encounter Summary ---
Author Organization [facility] Address [address] [place] [address] Care Team Providers Care Otolaryngologist Name Role Phone Yesenia Maria DO Primary Care Provider [phone] Encounter Details Date Type Department Care Team (Latest Contact Info) Description 04/04/2003 Outpatient Historical [facility] Medicine [address] [place] [phone] Yuri Richter MD NO ADDRESS ON FILE ACUTE BRONCHITIS (Primary Dx) Social History Tobacco Use Types Packs/Day Years Used Date Smoking Tobacco: Never Assessed Sex and Gender Information Value Date Recorded Sex Assigned at Not on file Legal Sex Male 2:36 AM DOWEL POINTER Gender Identity Not on file Sexual Orientation Not on file documented as of this encounter Plan of Treatment Not on file documented as of this encounter Visit Diagnoses Diagnosis Acute bronchitis- Primary documented in this encounter Additional Health Concerns Infection Onset Date Last Indicated Resolved Time R/O COVID-19 01/26/2020 01/26/2020 01/28/2020 1:46 AM DOWEL POINTER documented as of this encounter Care Teams Otolaryngologist Relationship Specialty Start Date End Date Yesenia Maria DO PCP - General Family Practice 04/18/20 07/14/20 documented as of this encounter
--- OUTSIDE RECORDS SUMMARY | 2025-03-09 13:13 | XMS_ITS | Encounter Summary ---
Author Organization [facility] Address [address] [place] [address] Care Team Providers Care Instructional Developer Name Role Phone Yesenia Maria DO Primary Care Provider [phone] Encounter Details Date Type Department Care Team (Latest Contact Info) Description 03/19/2006 Outpatient Historical [facility] Head and Neck Surgery-[address] [place] [phone] Steve Eugene MD NO ADDRESS ON FILE Deviated Nasal Septum (Primary Dx); Chronic Maxillary Sinusitis; Chronic Ethmoidal Sinusitis; Hypertrph Nasal Turbinat Social History Tobacco Use Types Packs/Day Years Used Date Smoking Tobacco: Never Assessed Sex and Gender Information Value Date Recorded Sex Assigned at Not on file Legal Sex Male 2:36 AM HEMATOLOGY SPECIALIST Gender Identity Not on file Sexual [...] R/O COVID-19 01/26/2020 01/26/2020 01/28/2020 1:46 AM HEMATOLOGY SPECIALIST documented as of this encounter Care Teams Instructional Developer Relationship Specialty Start Date End Date Yesenia Maria DO PCP - General Family Practice 04/18/20 07/14/20 documented as of this encounter
--- OUTSIDE RECORDS SUMMARY | 2025-03-09 13:13 | XMS_ITS | Encounter Summary ---
Author Organization [facility] Address [address] [place] [address] Care Team Providers Care Audio Visual Project Manager Name Role Phone Yesenia Maria DO Primary Care Provider [phone] Encounter Details Date Type Department Care Team (Latest Contact Info) Description 08/05/2006 Outpatient [facility] Cardio Pulmonary Rehab [address] [place] [address] Heladio Perez MD NO ADDRESS ON FILE Other Dyspnea and Respiratory Abnormality (Primary Dx) Social History Tobacco Use Types Packs/Day Years Used Date Smoking Tobacco: Never Assessed Sex and Gender Information Value Date Recorded Sex Assigned at Not on file Legal Sex Male 2:36 AM LOGISTICS LEAD Gender Identity Not on file Sexual Orientation Not on file documented as of this encounter Plan of Treatment Not on file documented as of this encounter Visit Diagnoses Diagnosis Other dyspnea and respiratory abnormality- Primary documented in this encounter Additional Health Concerns Infection Onset Date Last Indicated Resolved Time R/O COVID-19 01/26/2020 01/26/2020 01/28/2020 1:46 AM LOGISTICS LEAD documented as of this encounter Care Teams Audio Visual Project Manager Relationship Specialty Start Date End Date Yesenia Maria DO PCP - General Family Practice 04/18/20 07/14/20 documented as of this encounter
--- OUTSIDE RECORDS SUMMARY | 2025-03-09 13:13 | XMS_ITS | Encounter Summary ---
Author Organization [facility] Address [address] [place] [address] Care Team Providers Care Metallurgical Engineering Technician Name Role Phone Yesenia Maria DO Primary Care Provider [phone] Encounter Details Date Type Department Care Team (Latest Contact Info) Description 10/16/2005 Outpatient Historical [facility] Medicine [address] [place] [phone] Yuri Richter MD NO ADDRESS ON FILE Pure Hypercholesterolem (Primary Dx); Unspecified Essential Hypertension Social History Tobacco Use Types Packs/Day Years Used Date Smoking Tobacco: Never Assessed Sex and Gender Information Value Date Recorded Sex Assigned at Not on file Legal Sex Male 2:36 AM LOOP MACHINE OPERATOR Gender Identity Not on file Sexual Orientation Not on file documented as of this encounter Plan of Treatment Not on file documented as of this encounter Visit Diagnoses Diagnosis Pure hypercholesterolem- Primary Pure hypercholesterolemia Unspecified essential hypertension documented in this encounter Additional Health Concerns Infection Onset Date Last Indicated Resolved Time R/O COVID-19 01/26/2020 01/26/2020 01/28/2020 1:46 AM LOOP MACHINE OPERATOR documented as of this encounter Care Teams Metallurgical Engineering Technician Relationship Specialty Start Date End Date Yesenia Maria DO PCP - General Family Practice 04/18/20 07/14/20 documented as of this encounter
--- OUTSIDE RECORDS SUMMARY | 2025-03-09 13:13 | XMS_ITS | Encounter Summary ---
Author Organization [facility] Address [address] [place] [address] Care Team Providers Care Carver Hand Name Role Phone Yesenia Maria DO Primary Care Provider [phone] Encounter Details Date Type Department Care Team (Latest Contact Info) Description 12/07/2005 Outpatient Historical [facility] Medicine [address] [place] [phone] Yuri Richter MD NO ADDRESS ON FILE Acute Upper Respiratory Infections of Unspecified Site (Primary Dx) Social History Tobacco Use Types Packs/Day Years Used Date Smoking Tobacco: Never Assessed Sex and Gender Information Value Date Recorded Sex Assigned at Not on file Legal Sex Male 2:36 AM ART MANAGER Gender Identity Not on file Sexual Orientation Not on file documented as of this encounter Plan of Treatment Not on file documented as of this encounter Visit Diagnoses Diagnosis Acute upper respiratory infections of unspecified site- Primary documented in this encounter Additional Health Concerns Infection Onset Date Last Indicated Resolved Time R/O COVID-19 01/26/2020 01/26/2020 01/28/2020 1:46 AM ART MANAGER documented as of this encounter Care Teams Carver Hand Relationship Specialty Start Date End Date Yesenia Maria DO PCP - General Family Practice 04/18/20 07/14/20 documented as of this encounter
--- OUTSIDE RECORDS SUMMARY | 2025-03-09 13:13 | XMS_ITS | Encounter Summary ---
Author Organization [facility] Address [address] [place] [address] Care Team Providers Care Machine Lacer Name Role Phone Yesenia Maria DO Primary Care Provider [phone] Encounter Details Date Type Department Care Team (Latest Contact Info) Description 06/04/2003 Outpatient Historical [facility] Medicine [address] [place] [phone] Yuri Richter MD NO ADDRESS ON FILE FX ANKLE NOS-CLOSED (Primary Dx) Social History Tobacco Use Types Packs/Day Years Used Date Smoking Tobacco: Never Assessed Sex and Gender Information Value Date Recorded Sex Assigned at Not on file Legal Sex Male 2:36 AM MECHANIC INSULATOR Gender Identity Not on file Sexual Orientation Not on file documented as of this encounter Plan of Treatment Not on file documented as of this encounter Visit Diagnoses Diagnosis Unspecified closed fracture of ankle- Primary documented in this encounter Additional Health Concerns Infection Onset Date Last Indicated Resolved Time R/O COVID-19 01/26/2020 01/26/2020 01/28/2020 1:46 AM MECHANIC INSULATOR documented as of this encounter Care Teams Machine Lacer Relationship Specialty Start Date End Date Yesenia Maria DO PCP - General Family Practice 04/18/20 07/14/20 documented as of this encounter
--- OUTSIDE RECORDS SUMMARY | 2025-03-09 13:13 | XMS_ITS | Encounter Summary ---
Author Organization [facility] Address [address] [place] [address] Care Team Providers Care Senior Java Architect Name Role Phone Yesenia Maria DO Primary Care Provider [phone] Encounter Details Date Type Department Care Team (Latest Contact Info) Description 04/02/2003 Outpatient Historical [facility] Medicine [address] [place] [phone] Yuri Richter MD NO ADDRESS ON FILE ACUTE BRONCHITIS (Primary Dx) Social History Tobacco Use Types Packs/Day Years Used Date Smoking Tobacco: Never Assessed Sex and Gender Information Value Date Recorded Sex Assigned at Not on file Legal Sex Male 2:36 AM CROWN CERAMIST Gender Identity Not on file Sexual Orientation Not on file documented as of this encounter Plan of Treatment Not on file documented as of this encounter Visit Diagnoses Diagnosis Acute bronchitis- Primary documented in this encounter Additional Health Concerns Infection Onset Date Last Indicated Resolved Time R/O COVID-19 01/26/2020 01/26/2020 01/28/2020 1:46 AM CROWN CERAMIST documented as of this encounter Care Teams Senior Java Architect Relationship Specialty Start Date End Date Yesenia Maria DO PCP - General Family Practice 04/18/20 07/14/20 documented as of this encounter
--- OUTSIDE RECORDS SUMMARY | 2025-03-09 13:13 | XMS_ITS | Encounter Summary ---
Author Organization [facility] Address [address] [place] [address] Care Team Providers Care Practice Nurse Name Role Phone Yesenia Maria DO Primary Care Provider [phone] Encounter Details Date Type Department Care Team (Latest Contact Info) Description 01/09/2003 Outpatient Historical [facility] Medicine [address] [place] [phone] Yuri Richter MD NO ADDRESS ON FILE Pure hypercholesterolem (Primary Dx); HYPERTENSION NOS Social History Tobacco Use Types Packs/Day Years Used Date Smoking Tobacco: Never Assessed Sex and Gender Information Value Date Recorded Sex Assigned at Not on file Legal Sex Male 2:36 AM CORRUGATOR OPERATOR HELPER Gender Identity Not on file Sexual Orientation Not on file documented as of this encounter Plan of Treatment Not on file documented as of this encounter Visit Diagnoses Diagnosis Pure hypercholesterolem- Primary Pure hypercholesterolemia Unspecified essential hypertension documented in this encounter Additional Health Concerns Infection Onset Date Last Indicated Resolved Time R/O COVID-19 01/26/2020 01/26/2020 01/28/2020 1:46 AM CORRUGATOR OPERATOR HELPER documented as of this encounter Care Teams Practice Nurse Relationship Specialty Start Date End Date Yesenia Maria DO PCP - General Family Practice 04/18/20 07/14/20 documented as of this encounter
--- OUTSIDE RECORDS SUMMARY | 2025-03-09 13:13 | XMS_ITS | Encounter Summary ---
Author Organization [facility] Address [address] [facility] Attn: Epic Prelude ADT PREMA THAPA [address] Care Team Providers Care Child Nutrition Assistant Name Role Phone Yesenia Maria DO Primary Care Provider Encounter Details Date Type Department Care Team (Late st Contact Info) Description 02/18/2006 Outpatient Historical Steve Eugene MD NO ADDRESS ON FILE Social History Tobacco Use Types Packs/Day Years Used Date Smoking Tobacco: Never Assessed Sex and Gender Information Value Date Recorded Sex Assigned at Not on file Legal Sex Male 2:36 AM AUTOMOBILE DEALER Gender Identity Not on file Sexual Orientation Not on file documented as of this encounter Plan of Treatment Not on file documented as of this encounter Procedures Procedure Name Priority Date/Time Associated Diagnosis Comments RAST FOOD PANEL, ADULT Routine 02/18/2006 1:25 PM AUTOMOBILE DEALER ALLERGY PANEL ([facility]) Routine 02/18/2006 1:25 PM AUTOMOBILE DEALER documented in this encounter Results * RAST FOOD PANEL, ADULT (02/18/2006 1:25 PM AUTOMOBILE DEALER) ALLERGY FOOD PNL See Sep Report INTERFACE SYSTEM 02/18/2006 1:25 PM AUTOMOBILE DEALER us Steve Eugene MD CHEMISTRY ORDERABLES Final Re sult INTERFACE SYSTEM Refer to clinic/hospital department * RAST INHALANT PANEL (02/18/2006 1:25 PM AUTOMOBILE DEALER) ALLERGY INHALANT PNL & TTL IGE See Sep Report INTERFACE SYSTEM 02/18/2006 1:25 PM AUTOMOBILE DEALER us Steve Eugene MD CHEMISTRY ORDERABLES Final Re sult INTERFACE SYSTEM Refer to clinic/hospital department documented in this encounter Visit Diagnoses Not on filedocumented in this encounter Additional Health Concerns Infection Onset Date Last Indicated Resolved Time R/O COVID-19 01/26/2020 01/26/2020 01/28/2020 1:46 AM AUTOMOBILE DEALER documented as of this encounter Care Teams Child Nutrition Assistant Relationship Specialty Start Date End Date Yesenia Maria DO PCP - General Family Practice 04/18/20 07/14/20 documented as of this encounter
--- OUTSIDE RECORDS SUMMARY | 2025-03-09 13:13 | XMS_ITS | Encounter Summary ---
Author Organization [facility] Address [address] [place] [address] Care Team Providers Care Disc Ruler Operator Name Role Phone Yesenia Maria DO Primary Care Provider [phone] Encounter Details Date Type Department Care Team (Latest Contact Info) Description 07/24/2005 Outpatient Historical [facility] Optometry[address] [place] [address] Loyd Bacon, OD [address] [place] [address] Nuclear Sclerosis (Primary Dx) Social History Tobacco Use Types Packs/Day Years Used Date Smoking Tobacco: Never Assessed Sex and Gender Information Value Date Recorded Sex Assigned at Not on file Legal Sex Male 2:36 AM HEALTH CARE ATTORNEY Gender Identity Not on file Sexual Orientation Not on file documented as of this encounter Plan of Treatment Not on file documented as of this encounter Visit Diagnoses Diagnosis Nuclear sclerosis- Primary Senile nuclear sclerosis documented in this encounter Additional Health Concerns Infection Onset Date Last Indicated Resolved Time R/O COVID-19 01/26/2020 01/26/2020 01/28/2020 1:46 AM HEALTH CARE ATTORNEY documented as of this encounter Care Teams Disc Ruler Operator Relationship Specialty Start Date End Date Yesenia Maria DO PCP - General Family Practice 04/18/20 07/14/20 documented as of this encounter
--- OUTSIDE RECORDS SUMMARY | 2025-03-09 13:13 | XMS_ITS | Encounter Summary ---
Author Organization [facility] Address [address] [place] [address] Care Team Providers Care Block Captain Name Role Phone Yesenia Maria DO Primary Care Provider [phone] Encounter Details Date Type Department Care Team (Latest Contact Info) Description 08/28/2002 Outpatient Historical [facility] Medicine [address] [place] [phone] Yuri Richter MD NO ADDRESS ON FILE HYPERTENSION NOS (Primary Dx) Social History Tobacco Use Types Packs/Day Years Used Date Smoking Tobacco: Never Assessed Sex and Gender Information Value Date Recorded Sex Assigned at Not on file Legal Sex Male 2:36 AM IT CONSULTING MANAGER Gender Identity Not on file Sexual Orientation Not on file documented as of this encounter Plan of Treatment Not on file documented as of this encounter Visit Diagnoses Diagnosis Unspecified essential hypertension- Primary documented in this encounter Additional Health Concerns Infection Onset Date Last Indicated Resolved Time R/O COVID-19 01/26/2020 01/26/2020 01/28/2020 1:46 AM IT CONSULTING MANAGER documented as of this encounter Care Teams Block Captain Relationship Specialty Start Date End Date Yesenia Maria DO PCP - General Family Practice 04/18/20 07/14/20 documented as of this encounter
--- OUTSIDE RECORDS SUMMARY | 2025-03-09 13:13 | XMS_ITS | Encounter Summary ---
Author Organization [facility] Address [address] [place] [address] Care Team Providers Care Elementary School Music Teacher Name Role Phone Yesenia Maria DO Primary Care Provider [phone] Encounter Details Date Type Department Care Team (Latest Contact Info) Description 01/18/2006 Outpatient Historical [facility] Optometry[address] [place] [address] Loyd Bacon, OD [address] [place] [address] Nuclear Sclerosis (Primary Dx) Social History Tobacco Use Types Packs/Day Years Used Date Smoking Tobacco: Never Assessed Sex and Gender Information Value Date Recorded Sex Assigned at Not on file Legal Sex Male 2:36 AM DITCH DIGGER Gender Identity Not on file Sexual Orientation Not on file documented as of this encounter Plan of Treatment Not on file documented as of this encounter Visit Diagnoses Diagnosis Nuclear sclerosis- Primary Senile nuclear sclerosis documented in this encounter Additional Health Concerns Infection Onset Date Last Indicated Resolved Time R/O COVID-19 01/26/2020 01/26/2020 01/28/2020 1:46 AM DITCH DIGGER documented as of this encounter Care Teams Elementary School Music Teacher Relationship Specialty Start Date End Date Yesenia Maria DO PCP - General Family Practice 04/18/20 07/14/20 documented as of this encounter
--- OUTSIDE RECORDS SUMMARY | 2025-03-09 13:13 | XMS_ITS | Encounter Summary ---
Author Organization [facility] Address [address] [place] [address] Care Team Providers Care Bank Analyst Name Role Phone Yesenia Maria DO Primary Care Provider [phone] Encounter Details Date Type Department Care Team (Latest Contact Info) Description 07/19/2006 Outpatient Historical [facility], N[facility] and Throat- [address] [place] [address] [place] [phone] Steve Eugene MD NO ADDRESS ON FILE Chronic Rhinitis (Primary Dx); Unspecified Sinusitis (Chronic) Social History Tobacco Use Types Packs/Day Years Used Date Smoking Tobacco: Never Assessed Sex and Gender Information Value Date Recorded Sex Assigned at Not on file Legal Sex Male 2:36 AM FARM SERVICE ADVISER Gender Identity Not on file Sexual Orientation Not on file documented as of this encounter Plan of Treatment Not on file documented as of this encounter Visit Diagnoses Diagnosis Chronic rhinitis- Primary Unspecified sinusitis (chronic) documented in this encounter Additional Health Concerns Infection Onset Date Last Indicated Resolved Time R/O COVID-19 01/26/2020 01/26/2020 01/28/2020 1:46 AM FARM SERVICE ADVISER documented as of this encounter Care Teams Bank Analyst Relationship Specialty Start Date End Date Yesenia Maria DO PCP - General Family Practice 04/18/20 07/14/20 documented as of this encounter
--- OUTSIDE RECORDS SUMMARY | 2025-03-09 13:13 | XMS_ITS | Encounter Summary ---
Author Organization [facility] Address [address] [place] [address] Care Team Providers Care Audio/Video Technician Name Role Phone Yesenia Maria DO Primary Care Provider [phone] Encounter Details Date Type Department Care Team (Latest Contact Info) Description 03/19/2006 Outpatient [facility], N[facility] Th[facility] [address] [place] [phone] Steve Eugene MD NO ADDRESS ON FILE Chronic Maxillary Sinusitis (Primary Dx); Chronic Ethmoidal Sinusitis; Deviated Nasal Septum; Hypertrph Nasal Turbinat Social History Tobacco Use Types Packs/Day Years Used Date Smoking Tobacco: Never Assessed Sex and Gender Information Value Date Recorded Sex Assigned at Not on file Legal Sex Male 2:36 AM GYROSCOPE REPAIRER Gender Identity Not on file Sexual [...] R/O COVID-19 01/26/2020 01/26/2020 01/28/2020 1:46 AM GYROSCOPE REPAIRER documented as of this encounter Care Teams Audio/Video Technician Relationship Specialty Start Date End Date Yesenia Maria DO PCP - General Family Practice 04/18/20 07/14/20 documented as of this encounter
--- OUTSIDE RECORDS SUMMARY | 2025-03-09 13:13 | XMS_ITS | Encounter Summary ---
Author Organization [facility] Address [address] [place] [address] Care Team Providers Care Mine Analyst Name Role Phone Yesenia Maria DO Primary Care Provider [phone] Encounter Details Date Type Department Care Team (Latest Contact Info) Description 02/08/2006 Outpatient Historical [address] Salinas [facility] [place] [phone] Melly Jameson DO NO ADDRESS ON FILE Acute Sinusitis, Unspecified (Primary Dx); Unspecified Otitis Media Social History Tobacco Use Types Packs/Day Years Used Date Smoking Tobacco: Never Assessed Sex and Gender Information Value Date Recorded Sex Assigned at Not on file Legal Sex Male 2:36 AM MEDICAL CORPS OFFICER Gender Identity Not on file Sexual Orientation Not on file documented as of this encounter Plan of Treatment Not on file documented as of this encounter Visit Diagnoses Diagnosis Acute sinusitis, unspecified- Primary Unspecified otitis media documented in this encounter Additional Health Concerns Infection Onset Date Last Indicated Resolved Time R/O COVID-19 01/26/2020 01/26/2020 01/28/2020 1:46 AM MEDICAL CORPS OFFICER documented as of this encounter Care Teams Mine Analyst Relationship Specialty Start Date End Date Yesenia Maria DO PCP - General Family Practice 04/18/20 07/14/20 documented as of this encounter
--- OUTSIDE RECORDS SUMMARY | 2025-03-09 13:13 | XMS_ITS | Encounter Summary ---
Author Organization [facility] Address [address] [place] [address] Care Team Providers Care Dining Room Manager Name Role Phone Yesenia Maria DO Primary Care Provider Encounter Details Date Type Department Care Team (Latest Contact Info) Description 06/25/2003 Outpatient Historical [facility] [address] [place] [phone] Yuri Richter MD NO ADDRESS ON FILE FX ANKLE NOS-CLOSED (Primary Dx) Social History Tobacco Use Types Packs/Day Years Used Date Smoking Tobacco: Never Assessed Sex and Gender Information Value Date Recorded Sex Assigned at Not on file Legal Sex Male 2:36 AM INTERNAL CONTROLS MANAGER Gender Identity Not on file Sexual Orientation Not on file documented as of this encounter Plan of Treatment Not on file documented as of this encounter Visit Diagnoses Diagnosis Unspecified closed fracture of ankle- Primary documented in this encounter Additional Health Concerns Infection Onset Date Last Indicated Resolved Time R/O COVID-19 01/26/2020 01/26/2020 01/28/2020 1:46 AM INTERNAL CONTROLS MANAGER documented as of this encounter Care Teams Dining Room Manager Relationship Specialty Start Date End Date Yesenia Maria DO PCP - General Family Practice 04/18/20 07/14/20 documented as of this encounter
--- OUTSIDE RECORDS SUMMARY | 2025-03-09 13:13 | XMS_ITS | Encounter Summary ---
Author Organization [facility] Address [address] [place] [address] Care Team Providers Care Metal Pattern Maker Name Role Phone Yesenia Maria DO Primary Care Provider [phone] Encounter Details Date Type Department Care Team (Latest Contact Info) Description 08/02/2006 Outpatient Historical [facility] [place] [address] [place] [phone] Heladio Perez MD NO ADDRESS ON FILE Other Dyspnea and Respiratory Abnormality (Primary Dx) Social History Tobacco Use Types Packs/Day Years Used Date Smoking Tobacco: Never Assessed Sex and Gender Information Value Date Recorded Sex Assigned at Not on file Legal Sex Male 2:36 AM ON AIR TALENT Gender Identity Not on file Sexual Orientation Not on file documented as of this encounter Plan of Treatment Not on file documented as of this encounter Visit Diagnoses Diagnosis Other dyspnea and respiratory abnormality- Primary documented in this encounter Additional Health Concerns Infection Onset Date Last Indicated Resolved Time R/O COVID-19 01/26/2020 01/26/2020 01/28/2020 1:46 AM ON AIR TALENT documented as of this encounter Care Teams Metal Pattern Maker Relationship Specialty Start Date End Date Yesenia Maria DO PCP - General Family Practice 04/18/20 07/14/20 documented as of this encounter
--- OUTSIDE RECORDS SUMMARY | 2025-03-09 13:13 | XMS_ITS | Encounter Summary ---
Author Organization [facility] Address [address] [place] [address] Care Team Providers Care Machine Mover Name Role Phone Yesenia Maria DO Primary Care Provider [phone] Encounter Details Date Type Department Care Team (Latest Contact Info) Description 05/16/2003 Outpatient Historical [facility] [address] [place] [phone] Yuri Richter MD NO ADDRESS ON FILE FX ANKLE NOS-CLOSED (Primary Dx) Social History Tobacco Use Types Packs/Day Years Used Date Smoking Tobacco: Never Assessed Sex and Gender Information Value Date Recorded Sex Assigned at Not on file Legal Sex Male 2:36 AM STATIONARY FIREMAN Gender Identity Not on file Sexual Orientation Not on file documented as of this encounter Plan of Treatment Not on file documented as of this encounter Visit Diagnoses Diagnosis Unspecified closed fracture of ankle- Primary documented in this encounter Additional Health Concerns Infection Onset Date Last Indicated Resolved Time R/O COVID-19 01/26/2020 01/26/2020 01/28/2020 1:46 AM STATIONARY FIREMAN documented as of this encounter Care Teams Machine Mover Relationship Specialty Start Date End Date Yesenia Maria DO PCP - General Family Practice 04/18/20 07/14/20 documented as of this encounter
--- OUTSIDE RECORDS SUMMARY | 2025-03-09 13:13 | XMS_ITS | Encounter Summary ---
Author Organization [facility] Address [address] [place] [address] Care Team Providers Care Lobster Fisherman Name Role Phone Yesenia Maria DO Primary Care Provider [phone] Encounter Details Date Type Department Care Team (Latest Contact Info) Description 08/02/2006 Outpatient Historical [facility] [place] [address] [place] [phone] Heladio Perez MD NO ADDRESS ON FILE Other Dyspnea and Respiratory Abnormality (Primary Dx) Social History Tobacco Use Types Packs/Day Years Used Date Smoking Tobacco: Never Assessed Sex and Gender Information Value Date Recorded Sex Assigned at Not on file Legal Sex Male 2:36 AM SUPPLY CHAIN TECHNICIAN Gender Identity Not on file Sexual Orientation Not on file documented as of this encounter Plan of Treatment Not on file documented as of this encounter Visit Diagnoses Diagnosis Other dyspnea and respiratory abnormality- Primary documented in this encounter Additional Health Concerns Infection Onset Date Last Indicated Resolved Time R/O COVID-19 01/26/2020 01/26/2020 01/28/2020 1:46 AM SUPPLY CHAIN TECHNICIAN documented as of this encounter Care Teams Lobster Fisherman Relationship Specialty Start Date End Date Yesenia Maria DO PCP - General Family Practice 04/18/20 07/14/20 documented as of this encounter
--- OUTSIDE RECORDS SUMMARY | 2025-03-09 13:13 | XMS_ITS | Encounter Summary ---
Author Organization [facility] Address [address] [facility] [place] [place] [address] Care Team Providers Care Graphic Pre Press Trades Worker Name Role Phone Yesenia Maria Primary Care Provider [phone] Reason for Referral * Outpatient Services (Routine) - Closed Specialty Diagnoses / Procedures Referred By Sean t Referred To Contact Diagnoses Intervertebral disc disorder with radiculopathy of lumbosacral region Postlaminectomy syndrome, lumbar region Procedures MRI LUMBAR W WO CONTRAST Lorin Stanton FNP [address] [place] [address] Phone: tel: fax: [facility] Pre-Registration [place] CALL TO MAKE APPOINTMENT ONLY [address] [place] [address] Phone: tel: fax: Referral ID Status Reason Start Date Expiration Date V isits Requested Visits Authorized [id number] Closed F [facility] TO SCHEDULE (SGF) 01/25/2017 02/25/2018 1 1 ING ASSISTANT Encounter Details Date Type Department Care Team (Latest Contact Info) Description 01/25/2017 Ancillary Orders [facility] Pre-Registration [place] CALL TO MAKE APPOINTMENT ONLY [address] [place] [address] Lorin Stanton FNP [address] [place] [phone] Intervertebral disc disorder with radiculopathy of lumbosacral [...] on file Legal Sex Male 2:36 AM READING ASSISTANT Gender Identity Not on file Sexual Orientation Not on file Occupation Industry Job Start Date Job End Date Not on file Not on file Not on file Not on file documented as of this encounter Plan of Treatment Not on file documented as of this encounter Results * MRI LUMBAR W WO CONTRAST (02/15/2017 7:57 AM READING ASSISTANT) Anatomical Region Laterality Modality Spine Magnetic Resonan ce 02/15/2017 7:58 AM READING ASSISTANT Impressions 02/15/2017 4:29 PM READING ASSISTANT IMPRESSION: Please see below. Exam: MRI LUMBAR [...] postoperative lumbar spine as above. Lorin Stanton [facility] MR ORDERABLES Final Resul t documented in [...] R/O COVID-19 01/26/2020 01/26/2020 01/28/2020 1:46 AM READING ASSISTANT documented as of this encounter Care Teams Graphic Pre Press Trades Worker Relationship Specialty Start Date End Date Yesenia Maria DO PCP - General Family Practice 04/18/20 07/14/20 documented as of this encounter
--- OUTSIDE RECORDS SUMMARY | 2025-03-09 13:13 | XMS_ITS | Encounter Summary ---
Author Organization [facility] Address [address] [place] [address] Care Team Providers Care Brand Recorder Name Role Phone MariaYesenia dawson Primary Care Provider Encounter Details Date Type Department Care Team (Late st Contact Info) Description 12/19/2009 Ancillary Orders [facility] [address] [place] [phone] Ajay Bustamante DO [address] [place] [address] Hip pain Social History Tobacco Use Types Packs/Day Years Used Date Smoking Tobacco: Every Day Cigarettes 0.3 Last attempted to quit: 12/14/2007 Comments:may smoke occassion ally Alcohol Use Standard Drinks/Week Comments No 0 (1 standard drink = 0.6 oz pur e alcohol) Sex and Gender Information Value Date Recorded Sex Assigned at Not on file Legal Sex Male 2:36 AM MEMBERSHIP ASSISTANT Gender Identity Not on file Sexual [...] result of 12/19/2009. tjb - uploaded from [employer]- Narrative 12/19/2009 2:53 PM CDT AP fluoroscopic [...] result of 12/19/2009. tjb - uploaded from [employer]- Ajay Bustamante DO DIAGNOSTIC IMAGING ORDERABLES Final Result documented in this encounter Visit Diagnoses Diagnosis Hip pain Pain in joint, pelvic region and thigh Hip pain Pain in joint, pelvic region and thigh documented in this encounter Additional Health Concerns Infection Onset Date Last Indicated Resolved Time R/O COVID-19 01/26/2020 01/26/2020 01/28/2020 1:46 AM MEMBERSHIP ASSISTANT documented as of this encounter Care Teams Brand Recorder Relationship Specialty Start Date End Date Yesenia Maria DO PCP - General Family Practice 04/18/20 07/14/20 documented as of this encounter
--- OUTSIDE RECORDS SUMMARY | 2025-03-09 13:13 | XMS_ITS | Encounter Summary ---
Author Organization [facility] Address [address] [place] [address] Care Team Providers Care Editor Producer Name Role Phone Yesenia Maria DO Primary Care Provider [phone] Encounter Details Date Type Department Care Team (Latest Contact Info) Description 08/07/2005 Outpatient Historical [facility] Optometry[address] [place] [address] Loyd Bacon, OD [address] [place] [address] Nuclear Sclerosis (Primary Dx) Social History Tobacco Use Types Packs/Day Years Used Date Smoking Tobacco: Never Assessed Sex and Gender Information Value Date Recorded Sex Assigned at Not on file Legal Sex Male 2:36 AM RESIN MIXER Gender Identity Not on file Sexual Orientation Not on file documented as of this encounter Plan of Treatment Not on file documented as of this encounter Visit Diagnoses Diagnosis Nuclear sclerosis- Primary Senile nuclear sclerosis documented in this encounter Additional Health Concerns Infection Onset Date Last Indicated Resolved Time R/O COVID-19 01/26/2020 01/26/2020 01/28/2020 1:46 AM RESIN MIXER documented as of this encounter Care Teams Editor Producer Relationship Specialty Start Date End Date Yesenia Maria DO PCP - General Family Practice 04/18/20 07/14/20 documented as of this encounter
--- OUTSIDE RECORDS SUMMARY | 2025-03-09 13:13 | XMS_ITS | Encounter Summary ---
Author Organization [facility] Address [address] [place] [address] Care Team Providers Care Bogger Operator Name Role Phone Yesenia Maria DO Primary Care Provider [phone] Encounter Details Date Type Department Care Team (Latest Contact Info) Description 07/22/[address] [facility] Optometry[address] [place] [address] Loyd Bacon, OD [address] [place] [address] Unspecified Astigmatism (Primary Dx); Myopia Social History Tobacco Use Types Packs/Day Years Used Date Smoking Tobacco: Never Assessed Sex and Gender Information Value Date Recorded Sex Assigned at Not on file Legal Sex Male 2:36 AM BULL CHAIN OPERATOR Gender Identity Not on file Sexual Orientation Not on file documented as of this encounter Plan of Treatment Not on file documented as of this encounter Visit Diagnoses Diagnosis Astigmatism, unspecified- Primary Myopia documented in this encounter Additional Health Concerns Infection Onset Date Last Indicated Resolved Time R/O COVID-19 01/26/2020 01/26/2020 01/28/2020 1:46 AM BULL CHAIN OPERATOR documented as of this encounter Care Teams Bogger Operator Relationship Specialty Start Date End Date Yesenia Maria DO PCP - General Family Practice 04/18/20 07/14/20 documented as of this encounter
--- OUTSIDE RECORDS SUMMARY | 2025-03-09 13:13 | XMS_ITS | Encounter Summary ---
Author Organization [facility] Address [address] [place] [address] Care Team Providers Care Outsole Compressor Name Role Phone Yesenia Maria DO Primary Care Provider [phone] Encounter Details Date Type Department Care Team (Latest Contact Info) Description 04/05/2006 Outpatient Historical [facility] Ear, Nose and Throat [address] [place] [phone] Steve Eugene MD NO ADDRESS ON FILE Follow-Up Examination, Following Unspecified Surgery (Primary Dx) Social History Tobacco Use Types Packs/Day Years Used Date Smoking Tobacco: Never Assessed Sex and Gender Information Value Date Recorded Sex Assigned at Not on file Legal Sex Male 2:36 AM PUSHER OPERATOR Gender Identity Not on file Sexual Orientation Not on file documented as of this encounter Plan of Treatment Not on file documented as of this encounter Visit Diagnoses Diagnosis Follow-up examination, following unspecified surgery- Primary documented in this encounter Additional Health Concerns Infection Onset Date Last Indicated Resolved Time R/O COVID-19 01/26/2020 01/26/2020 01/28/2020 1:46 AM PUSHER OPERATOR documented as of this encounter Care Teams Outsole Compressor Relationship Specialty Start Date End Date Yesenia Maria DO PCP - General Family Practice 04/18/20 07/14/20 documented as of this encounter
--- OUTSIDE RECORDS SUMMARY | 2025-03-09 13:13 | XMS_ITS | Encounter Summary ---
Author Organization [facility] Address [address] [place] [address] Care Team Providers Care Primary Counselor Name Role Phone Yesenia Maria DO Primary Care Provider [phone] Encounter Details Date Type Department Care Team (Latest Contact Info) Description 09/04/2002 Outpatient Historical [facility] [address] [place] [address] Yuri Richter MD NO ADDRESS ON FILE DIABETES UNCOMPL ADULT-TYPE II (CMS/HCC) (Primary Dx); Pure hypercholesterolem; HYPERTENSION NOS Social History Tobacco Use Types Packs/Day Years Used Date Smoking Tobacco: Never Assessed Sex and Gender Information Value Date Recorded Sex Assigned at Not on file Legal Sex Male 2:36 AM JOURNEYMAN MEAT CUTTER Gender Identity Not on file Sexual [...] COVID-19 01/26/2020 01/26/2020 01/28/2020 1:46 AM JOURNEYMAN MEAT CUTTER documented as of this encounter Care Teams Primary Counselor Relationship Specialty Start Date End Date Yesenia Maria DO PCP - General Family Practice 04/18/20 07/14/20 documented as of this encounter
--- OUTSIDE RECORDS SUMMARY | 2025-03-09 13:13 | XMS_ITS | Encounter Summary ---
Author Organization [facility] Address [address] [place] [address] Care Team Providers Care Illuminator Name Role Phone Yesenia Maria DO Primary Care Provider [phone] Encounter Details Date Type Department Care Team (Latest Contact Info) Description 10/05/2005 Outpatient Historical [facility] [address] [place] [phone] Yuri Richter MD NO ADDRESS ON FILE Unspecified Essential Hypertension (Primary Dx); Other Abnormal Glucose Social History Tobacco Use Types Packs/Day Years Used Date Smoking Tobacco: Never Assessed Sex and Gender Information Value Date Recorded Sex Assigned at Not on file Legal Sex Male 2:36 AM HOT BOX OPERATOR Gender Identity Not on file Sexual Orientation Not on file documented as of this encounter Plan of Treatment Not on file documented as of this encounter Visit Diagnoses Diagnosis Unspecified essential hypertension- Primary Other abnormal glucose documented in this encounter Additional Health Concerns Infection Onset Date Last Indicated Resolved Time R/O COVID-19 01/26/2020 01/26/2020 01/28/2020 1:46 AM HOT BOX OPERATOR documented as of this encounter Care Teams Illuminator Relationship Specialty Start Date End Date Yesenia Maria DO PCP - General Family Practice 04/18/20 07/14/20 documented as of this encounter
--- OUTSIDE RECORDS SUMMARY | 2025-03-09 13:13 | XMS_ITS | Encounter Summary ---
Author Organization [facility] Address [address] [place] [address] Care Team Providers Care Spinner Operator Name Role Phone Yesenia Maria DO Primary Care Provider [phone] Encounter Details Date Type Department Care Team (Latest Contact Info) Description 05/03/2006 Outpatient [facility] Ear, Nose and Throat- [address] [place] [address] [place] [phone] Steve Eugene MD NO ADDRESS ON FILE Follow-Up Examination, Following Unspecified Surgery (Primary Dx) Social History Tobacco Use Types Packs/Day Years Used Date Smoking Tobacco: Never Assessed Sex and Gender Information Value Date Recorded Sex Assigned at Not on file Legal Sex Male 2:36 AM A OPERATOR Gender Identity Not on file Sexual Orientation Not on file documented as of this encounter Plan of Treatment Not on file documented as of this encounter Visit Diagnoses Diagnosis Follow-up examination, following unspecified surgery- Primary documented in this encounter Additional Health Concerns Infection Onset Date Last Indicated Resolved Time R/O COVID-19 01/26/2020 01/26/2020 01/28/2020 1:46 AM A OPERATOR documented as of this encounter Care Teams Spinner Operator Relationship Specialty Start Date End Date Yesenia Maria DO PCP - General Family Practice 04/18/20 07/14/20 documented as of this encounter
--- OUTSIDE RECORDS SUMMARY | 2025-03-09 13:13 | XMS_ITS | Encounter Summary ---
[facility] Organization [facility] Address [address] [place] [address] Care Team Providers Care After School Coordinator Name Role Phone Yesenia Maria DO Primary Care Provider [phone] Encounter Details Date Type Department Care Team (Latest Contact Info) Description 05/08/2010 Outpatient Historical [facility] [address] [place] [address] Ajay Rodriguez MD NO ADDRESS ON FILE [...] file Legal Sex Male 2:36 AM FORESTRY WORKER Gender Identity Not on file Sexual Orientation Not on file documented as of this encounter Plan of Treatment Not on file documented as of this encounter Visit Diagnoses Diagnosis Thoracic or lumbosacral neuritis or radiculitis, unspecified- Primary documented in this encounter Additional Health Concerns Infection Onset Date Last Indicated Resolved Time R/O COVID-19 01/26/2020 01/26/2020 01/28/2020 1:46 AM FORESTRY WORKER documented as of this encounter Care Teams After School Coordinator Relationship Specialty Start Date End Date Yesenia Maria DO PCP - General Family Practice 04/18/20 07/14/20 documented as of this encounter
--- OUTSIDE RECORDS SUMMARY | 2025-03-09 13:13 | XMS_ITS | Encounter Summary ---
Author Organization [facility] Address [address] [place] [address] Care Team Providers Care Tourist Cabin Keeper Name Role Phone Yesenia Maria DO Primary Care Provider [phone] Encounter Details Date Type Department Care Team (Latest Contact Info) Description 05/23/2003 Outpatient Historical [facility] Medicine [address] [place] [phone] Yuri Richter MD NO ADDRESS ON FILE FX ANKLE NOS-CLOSED (Primary Dx); HYPERTENSION NOS Social History Tobacco Use Types Packs/Day Years Used Date Smoking Tobacco: Never Assessed Sex and Gender Information Value Date Recorded Sex Assigned at Not on file Legal Sex Male 2:36 AM LEGAL AID Gender Identity Not on file Sexual Orientation Not on file documented as of this encounter Plan of Treatment Not on file documented as of this encounter Visit Diagnoses Diagnosis Unspecified closed fracture of ankle- Primary Unspecified essential hypertension documented in this encounter Additional Health Concerns Infection Onset Date Last Indicated Resolved Time R/O COVID-19 01/26/2020 01/26/2020 01/28/2020 1:46 AM LEGAL AID documented as of this encounter Care Teams Tourist Cabin Keeper Relationship Specialty Start Date End Date Yesenia Maria DO PCP - General Family Practice 04/18/20 07/14/20 documented as of this encounter
--- OUTSIDE RECORDS SUMMARY | 2025-03-09 13:13 | XMS_ITS | Encounter Summary ---
Author Organization [facility] Address [address] [place] [address] Care Team Providers Care Molding Utility Worker Name Role Phone Yesenia Maria DO Primary Care Provider [phone] Encounter Details Date Type Department Care Team (Latest Contact Info) Description 12/17/2009 Outpatient Historical [facility] [address] [place] [address] Miguel Hayden MD [address] [phone] Lumbago (Primary Dx); Thoracic or lumbosacral neuritis [...] on file Legal Sex Male 2:36 AM COMBO WELDER Gender Identity Not on file Sexual [...] R/O COVID-19 01/26/2020 01/26/2020 01/28/2020 1:46 AM COMBO WELDER documented as of this encounter Care Teams Molding Utility Worker Relationship Specialty Start Date End Date Yesenia Maria DO PCP - General Family Practice 04/18/20 07/14/20 documented as of this encounter
--- OUTSIDE RECORDS SUMMARY | 2025-03-09 13:14 | XMS_ITS | Encounter Summary ---
Author Organization [facility] Address [address] [place] [address] Care Team Providers Care Foreclosure Clerk Name Role Phone Yesenia Maria DO Primary Care Provider [phone] Encounter Details Date Type Department Care Team (Latest Contact Info) Description 06/17/2005 Outpatient Historical [facility] Medicine [address] [place] [phone] Yuri Richter MD NO ADDRESS ON FILE Pure Hypercholesterolem (Primary Dx); Unspecified Essential Hypertension Social History Tobacco Use Types Packs/Day Years Used Date Smoking Tobacco: Never Assessed Sex and Gender Information Value Date Recorded Sex Assigned at Not on file Legal Sex Male 2:36 AM POLITICAL AIDE Gender Identity Not on file Sexual Orientation Not on file documented as of this encounter Plan of Treatment Not on file documented as of this encounter Visit Diagnoses Diagnosis Pure hypercholesterolem- Primary Pure hypercholesterolemia Unspecified essential hypertension documented in this encounter Additional Health Concerns Infection Onset Date Last Indicated Resolved Time R/O COVID-19 01/26/2020 01/26/2020 01/28/2020 1:46 AM POLITICAL AIDE documented as of this encounter Care Teams Foreclosure Clerk Relationship Specialty Start Date End Date Yesenia Maria DO PCP - General Family Practice 04/18/20 07/14/20 documented as of this encounter
--- OUTSIDE RECORDS SUMMARY | 2025-03-09 13:14 | XMS_ITS | Encounter Summary ---
Author Organization [facility] Address [address] [place] [address] Care Team Providers Care Channel Cementer Insole Machine Name Role Phone Yesenia Maria DO Primary Care Provider [phone] Encounter Details Date Type Department Care Team (Latest Contact Info) Description 11/20/2004 Outpatient Historical [facility] Internal Medicine and Pediatrics-[address] [place] [phone] Heladio Perez MD NO ADDRESS ON FILE RESPIRATORY ABNORM NEC (Primary Dx) Social History Tobacco Use Types Packs/Day Years Used Date Smoking Tobacco: Never Assessed Sex and Gender Information Value Date Recorded Sex Assigned at Not on file Legal Sex Male 2:36 AM WHITE SIDEWALL TIRE BUFFER Gender Identity Not on file Sexual Orientation Not on file documented as of this encounter Plan of Treatment Not on file documented as of this encounter Visit Diagnoses Diagnosis Other dyspnea and respiratory abnormality- Primary documented in this encounter Additional Health Concerns Infection Onset Date Last Indicated Resolved Time R/O COVID-19 01/26/2020 01/26/2020 01/28/2020 1:46 AM WHITE SIDEWALL TIRE BUFFER documented as of this encounter Care Teams Channel Cementer Insole Machine Relationship Specialty Start Date End Date Yesenia Maria DO PCP - General Family Practice 04/18/20 07/14/20 documented as of this encounter
--- OUTSIDE RECORDS SUMMARY | 2025-03-09 13:14 | XMS_ITS | Encounter Summary ---
Author Organization [facility] Address [address] [place] [address] Care Team Providers Care Criminal Justice Teacher Name Role Phone Yesenia Maria DO Primary Care Provider [phone] Encounter Details Date Type Department Care Team (Latest Contact Info) Description 04/16/2004 Outpatient Historical [facility] Medicine [address] [place] [phone] Yuri Richter MD NO ADDRESS ON FILE SWELLING OF LIMB (Primary Dx) Social History Tobacco Use Types Packs/Day Years Used Date Smoking Tobacco: Never Assessed Sex and Gender Information Value Date Recorded Sex Assigned at Not on file Legal Sex Male 2:36 AM FINANCIAL AID ADVISOR Gender Identity Not on file Sexual Orientation Not on file documented as of this encounter Plan of Treatment Not on file documented as of this encounter Visit Diagnoses Diagnosis Swelling of limb- Primary documented in this encounter Additional Health Concerns Infection Onset Date Last Indicated Resolved Time R/O COVID-19 01/26/2020 01/26/2020 01/28/2020 1:46 AM FINANCIAL AID ADVISOR documented as of this encounter Care Teams Criminal Justice Teacher Relationship Specialty Start Date End Date Yesenia Maria DO PCP - General Family Practice 04/18/20 07/14/20 documented as of this encounter
--- OUTSIDE RECORDS SUMMARY | 2025-03-09 13:14 | XMS_ITS | Encounter Summary ---
Author Organization [facility] Address [address] [place] [address] Care Team Providers Care Material Expediter Name Role Phone Yesenia Maria DO Primary Care Provider Encounter Details Date Type Department Care Team (Latest Contact Info) Description 11/18/2004 Outpatient Historical [facility] Medicine [address] [place] [phone] Gregor Bro MD NO ADDRESS ON FILE ASTHMA UNSPECIFIED (Primary Dx) Social History Tobacco Use Types Packs/Day Years Used Date Smoking Tobacco: Never Assessed Sex and Gender Information Value Date Recorded Sex Assigned at Not on file Legal Sex Male 2:36 AM CAREER DEVELOPMENT COUNSELOR Gender Identity Not on file Sexual Orientation Not on file documented as of this encounter Plan of Treatment Not on file documented as of this encounter Visit Diagnoses Diagnosis Unspecified asthma(493.90)- Primary Unspecified asthma documented in this encounter Additional Health Concerns Infection Onset Date Last Indicated Resolved Time R/O COVID-19 01/26/2020 01/26/2020 01/28/2020 1:46 AM CAREER DEVELOPMENT COUNSELOR documented as of this encounter Care Teams Material Expediter Relationship Specialty Start Date End Date Yesenia Maria DO PCP - General Family Practice 04/18/20 07/14/20 documented as of this encounter
--- OUTSIDE RECORDS SUMMARY | 2025-03-09 13:14 | XMS_ITS | Encounter Summary ---
Author Organization [facility] Address [address] [place] [address] Care Team Providers Care Weatherization Technician Name Role Phone Yesenia Maria DO Primary Care Provider [phone] Encounter Details Date Type Department Care Team (Late st Contact Info) Description 05/26/2007 Outpatient Historical [facility] Pain Management- [address] [place] [phone] Ajay Rodriguez MD NO ADDRESS ON FILE Social History Tobacco Use Types Packs/Day Years Used Date Smoking Tobacco: Never Assessed Sex and Gender Information Value Date Recorded Sex Assigned at Not on file Legal Sex Male 2:36 AM INTERVENTIONAL RADIOLOGY RN Gender Identity Not on file Sexual Orientation Not on file documented as of this encounter Plan of Treatment Not on file documented as of this encounter Visit Diagnoses Not on filedocumented in this encounter Additional Health Concerns Infection Onset Date Last Indicated Resolved Time R/O COVID-19 01/26/2020 01/26/2020 01/28/2020 1:46 AM INTERVENTIONAL RADIOLOGY RN documented as of this encounter Care Teams Weatherization Technician Relationship Specialty Start Date End Date Yesenia Maria DO PCP - General Family Practice 04/18/20 07/14/20 documented as of this encounter
--- OUTSIDE RECORDS SUMMARY | 2025-03-09 13:14 | XMS_ITS | Encounter Summary ---
Author Organization [facility] [employer] [facility] Address [address] [place] [address] Care Team Providers Care Charter Pilot Name Role Phone Yesenia Maria DO Primary Care Provider [phone] Encounter Details Date Type Department Care Team (Latest Contact Info) Description 12/19/2008 Outpatient Historical [facility] [address] [place] [address] Conversion, History NO ADDRESS ON FILE Unspecified [...] on file Legal Sex Male 2:36 AM CAR REPAIRMAN Gender Identity Not on file Sexual Orientation Not on file documented as of this encounter Plan of Treatment Not on file documented as of this encounter Visit Diagnoses Diagnosis Unspecified general medical examination- Primary documented in this encounter Additional Health Concerns Infection Onset Date Last Indicated Resolved Time R/O COVID-19 01/26/2020 01/26/2020 01/28/2020 1:46 AM CAR REPAIRMAN documented as of this encounter Care Teams Charter Pilot Relationship Specialty Start Date End Date eYsenia Maria DO PCP - General Family Practice 04/18/20 07/14/20 documented as of this encounter
--- OUTSIDE RECORDS SUMMARY | 2025-03-09 13:14 | XMS_ITS | Encounter Summary ---
Author Organization [employer] Address [address] [place] [address] Care Team Providers Care Soccer Player Name Role Phone Yesenia Maria DO Primary Care Provider [phone] Encounter Details Date Type Department Care Team (Late st Contact Info) Description 01/15/2008 Outpatient Historical [facility] Miguel Hayden MD [address] [address] Social History Tobacco Use Types Packs/Day Years Used Date Smoking Tobacco: Never Assessed Sex and Gender Information Value Date Recorded Sex Assigned at Not on file Legal Sex Male 2:36 AM WELT TRIMMING MACHINE OPERATOR Gender Identity Not on file Sexual Orientation Not on file documented as of this encounter Plan of Treatment Not on file documented as of this encounter Procedures Procedure Name Priority Date/Time Associated Diagnosis Comments POC GLUCOSE Routine 02/07/2008 7:52 AM WELT TRIMMING MACHINE OPERATOR CBC WITH DIFFERENTIAL Routine 02/07/2008 6:49 AM WELT TRIMMING MACHINE OPERATOR BASIC METABOLIC PANEL Routine 02/07/2008 6:49 AM WELT TRIMMING MACHINE OPERATOR POC GLUCOSE Routine 02/07/2008 5:12 AM WELT TRIMMING MACHINE OPERATOR POC GLUCOSE Routine 02/06/2008 8:38 PM WELT TRIMMING MACHINE OPERATOR POC GLUCOSE Routine 02/06/2008 2:17 PM WELT TRIMMING MACHINE OPERATOR POC GLUCOSE Routine 02/06/2008 10:19 AM WELT TRIMMING MACHINE OPERATOR XR FLUORO GREATER THAN 1 HOUR Routine 02/06/2008 10:07 AM WELT TRIMMING MACHINE OPERATOR documented in this encounter Results * (ABNORMAL) POC GLUCOSE (02/07/2008 7:52 AM WELT TRIMMING MACHINE OPERATOR) GLUCOSE POC 165(H) 60 - 100 mg/dL [facility] Venous blood specimen (specimen) 02/07/2008 7:52 AM WELT TRIMMING MACHINE OPERATOR 02/07/2008 11:42 PM WELT TRIMMING MACHINE OPERATOR us Miguel Hayden MD POINT OF CARE TESTING Final Re sult INTERFACE SYSTEM Refer to clinic/hospital department [facility] CLIA# [id number] [address] [place] [id number] * (ABNORMAL) BASIC METABOLIC PANEL (02/07/2008 6:49 AM WELT TRIMMING MACHINE OPERATOR) ANION GAP 12 9 - 20 mEq/L [facility] SODIUM 139 136 - 145 mEq/L [facility] CREATININE 1.2 0.7 - 1.5 mg/dL [facility] CO2 25 22 - 32 mmol/l [facility] GLUCOSE 226(H) 70 - 110 mg/dL [facility] POTASSIUM 3.6 3.5 - 5.0 mEq/L [facility] OSMOLALITY, CALCULATED 296(H) 275 - 295 mOsm/Kg [facility] CALCIUM 9.0 8.4 - 10.5 mg/dL [facility] BUN 22(H) 9 - 20 mg/dL [facility] CHLORIDE 106 95 - 110 mEq/L [facility] Blood specimen (specimen) 02/07/2008 6:49 AM WELT TRIMMING MACHINE OPERATOR 02/07/2008 7:17 AM WELT TRIMMING MACHINE OPERATOR us Miguel Hayden MD CHEMISTRY ORDERABLES Final Res ult INTERFACE SYSTEM Refer to clinic/hospital department [facility] CLIA# [id number] [facility] [place] [address] * (ABNORMAL) CBC WITH DIFFERENTIAL (02/07/2008 6:49 AM WELT TRIMMING MACHINE OPERATOR) HEMATOCRIT 39.0(L) 41.0 - 53.0 % [facility] EOSINOPHILS 0.1 0.0 - 7.0 % [facility] PLATELETS 167 140 - 440 K/ul [facility] EOSINOPHIL ABSOLUTE 0.0 0.0 - 0.7 K/ul [facility] RBC 4.45(L) 4.60 - 6.20 Mil/ul [facility] LYMPHOCYTES 21.0(L) 24.0 - 44.0 % [facility] MCHC 34.4 30.0 - 35.0 g/dL [facility] LYMPHOCYTE ABSOLUTE 1.7 1.2 - 4.0 K/ul [facility] MCV 87.6 84.0 - 103.0 Fl [facility] MPV 10.6 8.9 - 12.8 Fl [facility] BASOPHILS ABSOLUTE 0.0 0.0 - 0.2 K/ul [facility] BASOPHILS 0.4 0.0 - 1.0 % [facility] HEMOGLOBIN 13.4(L) 14.0 - 18.0 g/dL [facility] RDW 12.9 11.0 - 14.5 % [facility] MONOCYTE ABSOLUTE 1.2(H) 0.1 - 0.6 K/ul [facility] MONOCYTES 14.3(H) 2.0 - 10.0 % [facility] WBC 8.0 4.5 - 11.0 K/ul [facility] MCH 30.1 27.0 - 34.0 pg [facility] NEUTROPHIL ABSOLUTE 5.2 2.0 - 8.0 K/ul [facility] NEUTROPHILS 64.2 42.2 - 75.2 % [facility] Blood specimen (specimen) 02/07/2008 6:49 AM WELT TRIMMING MACHINE OPERATOR 02/07/2008 7:17 AM WELT TRIMMING MACHINE OPERATOR us Migule Hayden MD HEMATOLOGY ORDERABLES Final Re sult Performing Organization Address [facility] de Phone Number INTERFACE SYSTEM Refer to clinic/hospital department [facility] CLIA# [id number] [address] [place] [address] * (ABNORMAL) POC GLUCOSE (02/07/2008 5:12 AM WELT TRIMMING MACHINE OPERATOR) GLUCOSE POC 295(H) 60 - 100 mg/dL [facility] Venous blood specimen (specimen) 02/07/2008 5:12 AM WELT TRIMMING MACHINE OPERATOR 02/08/2008 2:42 AM WELT TRIMMING MACHINE OPERATOR us Miguel Hayden MD POINT OF CARE TESTING Final Re sult Performing Organization Address [facility] Phone Number INTERFACE SYSTEM Refer to clinic/hospital department [facility] CLIA# [id number] [address] [place] [address] * (ABNORMAL) POC GLUCOSE (02/06/2008 8:38 PM WELT TRIMMING MACHINE OPERATOR) GLUCOSE POC 199(H) 60 - 100 mg/dL [facility] Venous blood specimen (specimen) 02/06/2008 8:38 PM WELT TRIMMING MACHINE OPERATOR 02/06/2008 11:52 PM WELT TRIMMING MACHINE OPERATOR us Miguel Hayden MD POINT OF CARE TESTING Final Re sult Performing Organization Address [facility] Phone Number INTERFACE SYSTEM Refer to clinic/hospital department [facility] CLIA# [id number] [address] [place] [address] * (ABNORMAL) POC GLUCOSE (02/06/2008 2:17 PM WELT TRIMMING MACHINE OPERATOR) GLUCOSE POC 152(H) 60 - 100 mg/dL [facility] Venous blood specimen (specimen) 02/06/2008 2:17 PM WELT TRIMMING MACHINE OPERATOR 02/06/2008 11:52 PM WELT TRIMMING MACHINE OPERATOR Result Jasvir Hayden MD POINT OF CARE TESTING Final Re sult Performing Organization Address [facility] Phone Number INTERFACE SYSTEM Refer to clinic/hospital department [facility] CLIA# [id number] [address] [place] [address] * (ABNORMAL) POC GLUCOSE (02/06/2008 10:19 AM WELT TRIMMING MACHINE OPERATOR) GLUCOSE POC 153(H) 60 - 100 mg/dL [facility] Venous blood specimen (specimen) 02/06/2008 10:19 AM WELT TRIMMING MACHINE OPERATOR 02/07/2008 2:44 AM WELT TRIMMING MACHINE OPERATOR us Miguel Hayden MD POINT OF CARE TESTING Final Re sult Performing Organization Address [facility] Phone Number INTERFACE SYSTEM Refer to clinic/hospital department [facility] CLIA# [id number] [address] [place] [address] * XR FLUORO > 1 HOUR (02/06/2008 10:07 AM WELT TRIMMING MACHINE OPERATOR) Anatomical Region Laterality Modality Other 02/06/2008 10:0 7 AM WELT TRIMMING MACHINE OPERATOR Narrative 02/06/2008 10:07 AM WELT TRIMMING MACHINE OPERATOR Finalized by [employer] utility. No report expected. Procedure Note 03/25/2008 Finalized by interface [employer] utility. No report expected. Result Jasvir Hayden MD DIAGNOSTIC IMAGING ORDERABLES Final Result documented in this encounter Visit Diagnoses Not on filedocumented in this encounter Additional Health Concerns Infection Onset Date Last Indicated Resolved Time R/O COVID-19 01/26/2020 01/26/2020 01/28/2020 1:46 AM WELT TRIMMING MACHINE OPERATOR documented as of this encounter Care Teams Soccer Player Relationship Specialty Start Date End Date Yesenia Maria DO PCP - General Family Practice 04/18/20 07/14/20 documented as of this encounter
--- OUTSIDE RECORDS SUMMARY | 2025-03-09 13:14 | XMS_ITS | Encounter Summary ---
Author Organization [facility] Address [address] [place] [address] Care Team Providers Care Sales Executive Insurance Name Role Phone Yesenia Maria DO Primary Care Provider [phone] Encounter Details Date Type Department Care Team (Late st Contact Info) Description 03/18/2007 Outpatient [facility] [address] [place] [phone] Ajay Rodriguez MD NO ADDRESS ON FILE Social History Tobacco Use Types Packs/Day Years Used Date Smoking Tobacco: Never Assessed Sex and Gender Information Value Date Recorded Sex Assigned at Not on file Legal Sex Male 2:36 AM LITHOGRAPHERS PRINTER Gender Identity Not on file Sexual Orientation Not on file documented as of this encounter Plan of Treatment Not on file documented as of this encounter Visit Diagnoses Not on filedocumented in this encounter Additional Health Concerns Infection Onset Date Last Indicated Resolved Time R/O COVID-19 01/26/2020 01/26/2020 01/28/2020 1:46 AM LITHOGRAPHERS PRINTER documented as of this encounter Care Teams Sales Executive Insurance Relationship Specialty Start Date End Date Yesenia Maria DO PCP - General Family Practice 04/18/20 07/14/20 documented as of this encounter
--- OUTSIDE RECORDS SUMMARY | 2025-03-09 13:14 | XMS_ITS | Encounter Summary ---
Author Organization [facility] Address [address] [place] [address] Care Team Providers Care Interventionist Name Role Phone Yesenia Maria DO Primary Care Provider [phone] Encounter Details Date Type Department Care Team (Late st Contact Info) Description 09/22/2007 Outpatient Historical [facility] [address] [place] [phone] Miguel Hayden MD [address] [phone] Social History Tobacco Use Types Packs/Day Years Used Date Smoking Tobacco: Never Assessed Sex and Gender Information Value Date Recorded Sex Assigned at Not on file Legal Sex Male 2:36 AM AREA ATTENDANT Gender Identity Not on file Sexual Orientation Not on file documented as of this encounter Plan of Treatment Not on file documented as of this encounter Visit Diagnoses Not on filedocumented in this encounter Additional Health Concerns Infection Onset Date Last Indicated Resolved Time R/O COVID-19 01/26/2020 01/26/2020 01/28/2020 1:46 AM AREA ATTENDANT documented as of this encounter Care Teams Interventionist Relationship Specialty Start Date End Date Yesenia Maria DO PCP - General Family Practice 04/18/20 07/14/20 documented as of this encounter
--- OUTSIDE RECORDS SUMMARY | 2025-03-09 13:14 | XMS_ITS | Encounter Summary ---
Author Organization [facility] Address [address] [place] [address] Care Team Providers Care Metal Fabricating Supervisor Name Role Phone Yseenia Maria DO Primary Care Provider [phone] Encounter Details Date Type Department Care Team (Late st Contact Info) Description 02/21/2007 [facility] [address] [place] [phone] Jacqueline Thakkar MD [address] [phone] Social History Tobacco Use Types Packs/Day Years Used Date Smoking Tobacco: Never Assessed Sex and Gender Information Value Date Recorded Sex Assigned at Not on file Legal Sex Male 2:36 AM RESEARCH MANUFACTURING OPERATOR Gender Identity Not on file Sexual Orientation Not on file documented as of this encounter Plan of Treatment Not on file documented as of this encounter Visit Diagnoses Not on filedocumented in this encounter Additional Health Concerns Infection Onset Date Last Indicated Resolved Time R/O COVID-19 01/26/2020 01/26/2020 01/28/2020 1:46 AM RESEARCH MANUFACTURING OPERATOR documented as of this encounter Care Teams Metal Fabricating Supervisor Relationship Specialty Start Date End Date Yesenia Maria DO PCP - General Family Practice 04/18/20 07/14/20 documented as of this encounter
--- OUTSIDE RECORDS SUMMARY | 2025-03-09 13:14 | XMS_ITS | Encounter Summary ---
Author Organization [facility] Address [address] [place] [address] Care Team Providers Care Corrective And Manual Arts Therapist Name Role Phone Yesenia Maria DO Primary Care Provider [phone] Encounter Details Date Type Department Care Team (Latest Contact Info) Description 07/02/2004 Outpatient Historical [facility] Internal Medicine and Pediatrics-[address] [place] [address] [place] [address] Adalberto Cruz MD [address] [place] [address] PERIPH VASCULAR DIS NOS (Primary Dx) Social History Tobacco Use Types Packs/Day Years Used Date Smoking Tobacco: Never Assessed Sex and Gender Information Value Date Recorded Sex Assigned at Not on file Legal Sex Male 2:36 AM SETTER COLD ROLLING MACHINE Gender Identity Not on file Sexual Orientation Not on file documented as of this encounter Plan of Treatment Not on file documented as of this encounter Visit Diagnoses Diagnosis Peripheral vascular disease, unspecified- Primary documented in this encounter Additional Health Concerns Infection Onset Date Last Indicated Resolved Time R/O COVID-19 01/26/2020 01/26/2020 01/28/2020 1:46 AM SETTER COLD ROLLING MACHINE documented as of this encounter Care Teams Corrective And Manual Arts Therapist Relationship Specialty Start Date End Date Yesenia Maria DO PCP - General Family Practice 04/18/20 07/14/20 documented as of this encounter
--- OUTSIDE RECORDS SUMMARY | 2025-03-09 13:14 | XMS_ITS | Encounter Summary ---
Author Organization [facility] Address [address] [place] [address] Care Team Providers Care Valuation Manager Name Role Phone Yesenia Maria DO Primary Care Provider [phone] Encounter Details Date Type Department Care Team (Latest Contact Info) Description 10/21/2006 Outpatient Historical [facility] Orthopedics[address] [place] [address] Ajay Bustamante, DO [address] [place] [address] Other Joint Derangement, not Elsewhere Classified, Ankle and Foot (Primary Dx) Social History Tobacco Use Types Packs/Day Years Used Date Smoking Tobacco: Never Assessed Sex and Gender Information Value Date Recorded Sex Assigned at Not on file Legal Sex Male 2:36 AM LOAN AUDITOR Gender Identity Not on file Sexual Orientation Not on file documented as of this encounter Plan of Treatment Not on file documented as of this encounter Visit Diagnoses Diagnosis Other joint derangement, not elsewhere classified, ankle and foot- Primary documented in this encounter Additional Health Concerns Infection Onset Date Last Indicated Resolved Time R/O COVID-19 01/26/2020 01/26/2020 01/28/2020 1:46 AM LOAN AUDITOR documented as of this encounter Care Teams Valuation Manager Relationship Specialty Start Date End Date Yesenia Maria DO PCP - General Family Practice 04/18/20 07/14/20 documented as of this encounter
--- OUTSIDE RECORDS SUMMARY | 2025-03-09 13:14 | XMS_ITS | Encounter Summary ---
Author Organization [facility] Address [address] [place] [address] Care Team Providers Care Audiovisual Librarian Name Role Phone Radu Dallas DO Primary Care Provider [phone] Reason for Visit * Reason Comments Medication Refill Encounter Details Date Type Department Care Team (Late Contact Info) Description 09/13/2020 Refill [facility] Internal Medicine and Pediatrics-[address] [place] [address] Vy Patricio NP [address] [facility] [address] [place] [address] Social History Tobacco Use Types Packs/Day Years Used Date Smoking Tobacco: Every Day Cigarettes Smokeless Tobacco: Never Comments:Quit smoking: less than 1/2 pack per day Alcohol Use Standard Drinks/Week Comments No 0 (1 standard drink = 0.6 oz pur e alcohol) Sex and Gender Information Value Date Recorded Sex Assigned at Not on file Legal Sex Male 1:33 AM NEUROPSYCHIATRIST Gender Identity Not on file Sexual Orientation Not on file documented as of this encounter Plan of Treatment Upcoming Encounters Date Type Department Care Team (Late Contact Info) Description 07/04/2025 8:00 AM CDT Ancillary Procedure [facility]- [place] [address] [place] [address] Luther Babin NP [address] [place] [address] 07/04/2025 8:30 AM CDT Ancillary Procedure [facility]- [place] [address] [place] [address] Luther Babin NP [address] [facility] [address] [place] [address] 07/04/2025 9:30 AM CDT Office Visit [facility] Vascular Surgery [place] [address] [facility] [address] [place] [address] Luther Babin NP [address] [facility] [address] [place] [address] documented as of this encounter Visit Diagnoses Not on filedocumented in this encounter Care Teams Audiovisual Librarian Relationship Specialty Start Date End Date Radu Dallas DO [address] [place] [address] [address] [place] [phone] PCP - General Family Practice 10/13/24 documented as of this encounter
--- OUTSIDE RECORDS SUMMARY | 2025-03-09 13:14 | XMS_ITS | Encounter Summary ---
Author Organization [employer] [facility] Address [address] [place] [address] Care Team Providers Care Cue Selector Name Role Phone Yesenia Maria DO Primary Care Provider [phone] Encounter Details Date Type Department Care Team (Late st Contact Info) Description 10/20/2008 Emergency [facility] [address] [place] [address] Piyush Sahu MD [address] [place] [address] Yuri Richter MD NO ADDRESS ON FILE [...] on file Legal Sex Male 2:36 AM ACTION FINISHER Gender Identity Not on file Sexual Orientation [...] Time R/O COVID-19 01/26/2020 01/26/202001/28/2020 1:46 AM ACTION FINISHER documented as of this encounter Care Teams Cue Selector Relationship Specialty Start Date End Date Yesenia Maria DO PCP - General Family Practice 04/18/20 07/14/20 documented as of this encounter
--- OUTSIDE RECORDS SUMMARY | 2025-03-09 13:14 | XMS_ITS | Encounter Summary ---
Author Organization [facility] Address [address] [place] [address] Care Team Providers Care Truck Dispatcher Name Role Phone Yesenia Maria DO Primary Care Provider [phone] Encounter Details Date Type Department Care Team (Late st Contact Info) Description 01/19/2011 Ancillary Orders [facility] Pain Management[address] [place] [phone] Adrienne Will PA [address] [place] [phone] Thoracic or lumbosacral neuritis or radiculitis, unspecified [...] on file Legal Sex Male 2:36 AM PRODUCT SAFETY ASSOCIATE Gender Identity Not on file Sexual Orientation Not on file documented as of this encounter Plan of Treatment Not on file documented as of this encounter Results * XR FLUORO NEEDLE GUIDANCE (01/19/2011 9:38 AM PRODUCT SAFETY ASSOCIATE) Anatomical Region Laterality Modality Computed Radiogr aphy Narrative 01/19/2011 9:39 AM PRODUCT SAFETY ASSOCIATE Order information only. Exam was auto-finalized. [...] R/O COVID-19 01/26/2020 01/26/2020 01/28/2020 1:46 AM PRODUCT SAFETY ASSOCIATE documented as of this encounter Care Teams Truck Dispatcher Relationship Specialty Start Date End Date Yesenia Maria DO PCP - General Family Practice 04/18/20 07/14/20 documented as of this encounter
--- OUTSIDE RECORDS SUMMARY | 2025-03-09 13:14 | XMS_ITS | Encounter Summary ---
Author Organization [facility] Address [address] [place] [address] Care Team Providers Care Dog Food Dough Mixer Name Role Phone Yesenia Maria DO Primary Care Provider [phone] Encounter Details Date Type Department Care Team (Latest Contact Info) Description 11/06/2004 Outpatient Historical [facility] Medicine [address] [place] [phone] Gregor Bro MD NO ADDRESS ON FILE SHORTNESS OF BREATH (Primary Dx) Social History Tobacco Use Types Packs/Day Years Used Date Smoking Tobacco: Never Assessed Sex and Gender Information Value Date Recorded Sex Assigned at Not on file Legal Sex Male 2:36 AM ECOMMERCE MARKETING MANAGER Gender Identity Not on file Sexual Orientation Not on file documented as of this encounter Plan of Treatment Not on file documented as of this encounter Visit Diagnoses Diagnosis Shortness of breath- Primary documented in this encounter Additional Health Concerns Infection Onset Date Last Indicated Resolved Time R/O COVID-19 01/26/2020 01/26/2020 01/28/2020 1:46 AM ECOMMERCE MARKETING MANAGER documented as of this encounter Care Teams Dog Food Dough Mixer Relationship Specialty Start Date End Date Yesenia Maria DO PCP - General Family Practice 04/18/20 07/14/20 documented as of this encounter
--- OUTSIDE RECORDS SUMMARY | 2025-03-09 13:14 | XMS_ITS | Encounter Summary ---
Author Organization [facility] Address [address] [place] [address] Care Team Providers Care Poke In Name Role Phone Yesenia Maria DO Primary Care Provider [phone] Encounter Details Date Type Department Care Team (Latest Contact Info) Description 11/16/2008 Outpatient Historical [facility] [address] [place] [address] Ajay Bustamante DO [address] [place] [address] Other Joint Derangement, not Elsewhere [...] on file Legal Sex Male 2:36 AM TURF KEEPER Gender Identity Not on file Sexual Orientation Not on file documented as of this encounter Plan of Treatment Not on file documented as of this encounter Visit Diagnoses Diagnosis Other joint derangement, not elsewhere classified, ankle and foot- Primary documented in this encounter Additional Health Concerns Infection Onset Date Last Indicated Resolved Time R/O COVID-19 01/26/2020 01/26/2020 01/28/2020 1:46 AM TURF KEEPER documented as of this encounter Care Teams Poke In Relationship Specialty Start Date End Date Yesenia Maria DO PCP - General Family Practice 04/18/20 07/14/20 documented as of this encounter
--- OUTSIDE RECORDS SUMMARY | 2025-03-09 13:14 | XMS_ITS | Encounter Summary ---
Author Organization [facility] Address [address] [place] [address] Care Team Providers Care Director [employer] Name Role Phone Yesenia Maria DO Primary Care Provider [phone] Encounter Details Date Type Department Care Team (Latest Contact Info) Description 02/16/2008 Outpatient Historical [facility] [address] [facility] [address] [place] [address] Abdifatah De La Fuente PA [address] [address] Miguel Hayden MD [address] [address] Lumbago; Unspecified Essential Hypertension; Unspecified Arthropathy, Site Unspecified; Unspecified Asthma Social History Tobacco Use Types Packs/Day Years Used Date Smoking Tobacco: Never Assessed Sex and Gender Information Value Date Recorded Sex Assigned at Not on file Legal Sex Male 2:36 AM HONEY PROCESSOR Gender Identity Not on file Sexual Orientation Not on file documented as of this encounter Plan of Treatment Not on file documented as of this encounter Visit Diagnoses Diagnosis Lumbago Unspecified essential hypertension Arthropathy, unspecified, site unspecified Unspecified asthma(493.90) Unspecified asthma documented in this encounter Additional Health Concerns Infection Onset Date Last Indicated Resolved Time R/O COVID-19 01/26/2020 01/26/2020 01/28/2020 1:46 AM HONEY PROCESSOR documented as of this encounter Care Teams Director [employer] Relationship Specialty Start Date End Date Yesenia Maria DO PCP - General Family Practice 04/18/20 07/14/20 documented as of this encounter
--- OUTSIDE RECORDS SUMMARY | 2025-03-09 13:14 | XMS_ITS | Encounter Summary ---
Author Organization [facility] Address [address] [place] [address] Care Team Providers Care Bobbin Sorter Name Role Phone Yesenia Maria DO Primary Care Provider Encounter Details Date Type Department Care Team (Latest Contact Info) Description 05/20/2004 Outpatient Historical [address] [place] [address] [place] [phone] Melly Jameson DO NO ADDRESS ON FILE ACUTE SINUSITIS NOS (Primary Dx) Social History Tobacco Use Types Packs/Day Years Used Date Smoking Tobacco: Never Assessed Sex and Gender Information Value Date Recorded Sex Assigned at Not on file Legal Sex Male 2:36 AM PARALLEL COMPUTING SOFTWARE ENGINEER Gender Identity Not on file Sexual Orientation Not on file documented as of this encounter Plan of Treatment Not on file documented as of this encounter Visit Diagnoses Diagnosis Acute sinusitis, unspecified- Primary documented in this encounter Additional Health Concerns Infection Onset Date Last Indicated Resolved Time R/O COVID-19 01/26/2020 01/26/2020 01/28/2020 1:46 AM PARALLEL COMPUTING SOFTWARE ENGINEER documented as of this encounter Care Teams Bobbin Sorter Relationship Specialty Start Date End Date Yesenia Maria DO PCP - General Family Practice 04/18/20 07/14/20 documented as of this encounter
--- OUTSIDE RECORDS SUMMARY | 2025-03-09 13:14 | XMS_ITS | Encounter Summary ---
Author Organization [facility] Address [address] [place] [address] Care Team Providers Care Dry Cleaning Supervisor Name Role Phone Yesenia Maria DO Primary Care Provider [phone] Encounter Details Date Type Department Care Team (Late st Contact Info) Description 10/19/2007 Outpatient Historical [facility] DEFAULT DEPARTMENT Miguel Hayden MD [address] [phone] Social History Tobacco Use Types Packs/Day Years Used Date Smoking Tobacco: Never Assessed Sex and Gender Information Value Date Recorded Sex Assigned at Not on file Legal Sex Male 2:36 AM DENTAL ASSISTANT TEACHER Gender Identity Not on file Sexual Orientation Not on file documented as of this encounter Plan of Treatment Not on file documented as of this encounter Visit Diagnoses Not on filedocumented in this encounter Additional Health Concerns Infection Onset Date Last Indicated Resolved Time R/O COVID-19 01/26/2020 01/26/2020 01/28/2020 1:46 AM DENTAL ASSISTANT TEACHER documented as of this encounter Care Teams Dry Cleaning Supervisor Relationship Specialty Start Date End Date Yesenia Maria DO PCP - General Family Practice 04/18/20 07/14/20 documented as of this encounter
--- OUTSIDE RECORDS SUMMARY | 2025-03-09 13:14 | XMS_ITS | Encounter Summary ---
Author Organization [facility] Address [address] [place] [address] Care Team Providers Care Management Engineer Name Role Phone Yesenia Maria DO Primary Care Provider [phone] Encounter Details Date Type Department Care Team (Late st Contact Info) Description 01/26/2008 Outpatient Historical [facility] [address] [place] [address] Miguel Hayden MD [address] [address] Social History Tobacco Use Types Packs/Day Years Used Date Smoking Tobacco: Never Assessed Sex and Gender Information Value Date Recorded Sex Assigned at Not on file Legal Sex Male 2:36 AM AUTOMATION MACHINE BUILDER Gender Identity Not on file Sexual Orientation Not on file documented as of this encounter Plan of Treatment Not on file documented as of this encounter Procedures Procedure Name Priority Date/Time Associated Diagnosis Comments NICOTINE SCREEN, URINE Stat 01/26/2008 2:46 PM AUTOMATION MACHINE BUILDER CBC WITH DIFFERENTIAL Stat 01/26/2008 2:27 PM AUTOMATION MACHINE BUILDER BASIC METABOLIC PANEL Stat 01/26/2008 2:27 PM AUTOMATION MACHINE BUILDER documented in this encounter Results * NICOTINE SCREEN, URINE (01/26/2008 2:46 PM AUTOMATION MACHINE BUILDER) [facility] Signature NICOTINE SCREEN, URINE See Sep Report [facility] Urine specimen (specimen) 01/26/2008 2:46 PM AUTOMATION MACHINE BUILDER 01/27/2008 8:25 AM AUTOMATION MACHINE BUILDER us Miguel Hayden MD URINE ORDERABLES Final Result Performing Organization Address [facility] Phone Number INTERFACE SYSTEM Refer to clinic/hospital department [facility] CLIA# [id number] [address] [place] [address] * (ABNORMAL) BASIC METABOLIC PANEL (01/26/2008 2:27 PM AUTOMATION MACHINE BUILDER) GLUCOSE 99 70 - 110 mg/dL [facility] CHLORIDE 105 95 - 110 mEq/L [facility] SODIUM 141 136 - 145 mEq/L [facility] ANION GAP 12 9 - 20 mEq/L [facility] BUN 21(H) 9 - 20 mg/dL [facility] CO2 29 22 - 32 mmol/l [facility] OSMOLALITY, CALCULATED 294 275 - 295 mOsm/Kg [facility] POTASSIUM 4.5 3.5 - 5.0 mEq/L [facility] Comment: Specimen slightly hemolyzed CREATININE 1.2 0.7 - 1.5 mg/dL [facility] CALCIUM 10.0 8.4 - 10.5 mg/dL [facility] Blood specimen (specimen) 01/26/2008 2:27 PM AUTOMATION MACHINE BUILDER 01/26/2008 2:44 PM AUTOMATION MACHINE BUILDER us iMguel Hayden MD CHEMISTRY ORDERABLES Final Res ult Performing Organization Address [facility] Phone Number INTERFACE SYSTEM Refer to clinic/hospital department [facility] CLIA# [id number] [address] [place] [phone] * (ABNORMAL) CBC WITH DIFFERENTIAL (01/26/2008 2:27 PM AUTOMATION MACHINE BUILDER) MONOCYTE ABSOLUTE 0.7(H) 0.1 - 0.6 K/ul [facility] HEMOGLOBIN 15.4 14.0 - 18.0 g/dL [facility] LYMPHOCYTES 38.5 24.0 - 44.0 % [facility] WBC 6.0 4.5 - 11.0 K/ul [facility] MCH 30.5 27.0 - 34.0 pg [facility] MPV 10.3 8.9 - 12.8 Fl [facility] EOSINOPHIL ABSOLUTE 0.2 0.0 - 0.7 K/ul [facility] BASOPHILS 1.2(H) 0.0 - 1.0 % [facility] HEMATOCRIT 43.8 41.0 - 53.0 % [facility] RDW 12.8 11.0 - 14.5 % [facility] LYMPHOCYTE ABSOLUTE 2.3 1.2 - 4.0 K/ul [facility] MONOCYTES 11.8(H) 2.0 - 10.0 % [facility] RBC 5.05 4.60 - 6.20 Mil/ul [facility] MCHC 35.2(H) 30.0 - 35.0 g/dL [facility] NEUTROPHIL ABSOLUTE 2.7 2.0 - 8.0 K/ul [facility] NEUTROPHILS 44.5 42.2 - 75.2 % [facility] BASOPHILS ABSOLUTE 0.1 0.0 - 0.2 K/ul [facility] MCV 86.7 84.0 - 103.0 Fl [facility] EOSINOPHILS 4.0 0.0 - 7.0 % [facility] PLATELETS 189 140 - 440 K/ul [facility] Blood specimen (specimen) 01/26/2008 2:27 PM AUTOMATION MACHINE BUILDER 01/26/2008 2:44 PM AUTOMATION MACHINE BUILDER us Miguel Hayden MD HEMATOLOGY ORDERABLES Final Re sult INTERFACE SYSTEM Refer to clinic/hospital department [facility] CLIA# [id number] [address] [place] [address], [place] [address] documented in this encounter Visit Diagnoses Not on filedocumented in this encounter Additional Health Concerns Infection Onset Date Last Indicated Resolved Time R/O COVID-19 01/26/2020 01/26/2020 01/28/2020 1:46 AM AUTOMATION MACHINE BUILDER documented as of this encounter Care Teams Management Engineer Relationship Specialty Start Date End Date Yesenia Maria DO PCP - General Family Practice 04/18/20 07/14/20 documented as of this encounter
--- OUTSIDE RECORDS SUMMARY | 2025-03-09 13:14 | XMS_ITS | Encounter Summary ---
Author Organization [facility] Address [address] [place] [address] Care Team Providers Care Creative Strategist Name Role Phone Yesenia Maria DO Primary Care Provider [phone] Encounter Details Date Type Department Care Team (Late st Contact Info) Description 01/05/2005 Outpatient Historical [address] [place] [phone] [address] [place] [address] [place] [address] SPRAIN ELBOW/FOREARM NOS (Primary Dx) Social History Tobacco Use Types Packs/Day Years Used Date Smoking Tobacco: Never Assessed Sex and Gender Information Value Date Recorded Sex Assigned at Not on file Legal Sex Male 2:36 AM DRUG ENFORCEMENT ADMINISTRATION AGENT Gender Identity Not on file Sexual Orientation Not on file documented as of this encounter Plan of Treatment Not on file documented as of this encounter Visit Diagnoses Diagnosis Sprain and strain of unspecified site of elbow and forearm- Primary documented in this encounter Additional Health Concerns Infection Onset Date Last Indicated Resolved Time R/O COVID-19 01/26/2020 01/26/2020 01/28/2020 1:46 AM DRUG ENFORCEMENT ADMINISTRATION AGENT documented as of this encounter Care Teams Creative Strategist Relationship Specialty Start Date End Date Yesenia Maria DO PCP - General Family Practice 04/18/20 07/14/20 documented as of this encounter
--- OUTSIDE RECORDS SUMMARY | 2025-03-09 13:14 | XMS_ITS | Encounter Summary ---
Author Organization [facility] Address [address] [place] [address] Care Team Providers Care Under Presser Name Role Phone Yesenia Maria DO Primary Care Provider [phone] Encounter Details Date Type Department Care Team (Late st Contact Info) Description 07/09/2004 Outpatient Historical [facility] 06 Non-Staff, Physician NO ADDRESS ON FILE Social History Tobacco Use Types Packs/Day Years Used Date Smoking Tobacco: Never Assessed Sex and Gender Information Value Date Recorded Sex Assigned at Not on file Legal Sex Male 2:36 AM SENIOR GRADUATE ADVISOR Gender Identity Not on file Sexual [...] COM Fin al Result Performing Organization Address [facility] Phone Number INTERFACE SYSTEM Refer to clinic/hospital department * GLUCOSE LEVEL (07/09/2004 6:30 AM CDT) GLUCOSE 92 70 - 110 mg/dL INTERFACE SYSTEM 07/09/2004 6:30 AM CDT Physician Non-Staff CHEMISTRY ORDERABLES Final R esult Performing Organization Address [facility] Phone Number INTERFACE SYSTEM Refer to clinic/hospital [...] ORDERABLES Final R esult Performing Organization Address [facility] Phone Number INTERFACE SYSTEM Refer to clinic/hospital department documented in this encounter Visit Diagnoses Not on filedocumented in this encounter Additional Health Concerns Infection Onset Date Last Indicated Resolved Time R/O COVID-19 01/26/2020 01/26/2020 01/28/2020 1:46 AM SENIOR GRADUATE ADVISOR documented as of this encounter Care Teams Under Presser Relationship Specialty Start Date End Date Yesenia Maria DO PCP - General Family Practice 04/18/20 07/14/20 documented as of this encounter
--- OUTSIDE RECORDS SUMMARY | 2025-03-09 13:14 | XMS_ITS | Encounter Summary ---
Author Organization [facility] Address [address] [place] [address] Care Team Providers Care Netting Weaver Name Role Phone Yesenia Maria DO Primary Care Provider [phone] Encounter Details Date Type Department Care Team (Latest Contact Info) Description 12/12/2004 Outpatient Historical [facility] Medicine [address] [place] [address] Gregor Bro MD NO ADDRESS ON FILE CHRONIC AIRWAY OBSTRUCTION NEC ([facility]) (Primary Dx); Vaccine for influenza; VACCINE FOR STREP PNEUMONIAE Social History Tobacco Use Types Packs/Day Years Used Date Smoking Tobacco: Never Assessed Sex and Gender Information Value Date Recorded Sex Assigned at Not on file Legal Sex Male 2:36 AM TRANSPORTATION PROGRAM DIRECTOR Gender Identity Not on file Sexual [...] R/O COVID-19 01/26/2020 01/26/2020 01/28/2020 1:46 AM TRANSPORTATION PROGRAM DIRECTOR documented as of this encounter Care Teams Netting Weaver Relationship Specialty Start Date End Date Yesenia Maria DO PCP - General Family Practice 04/18/20 07/14/20 documented as of this encounter
--- OUTSIDE RECORDS SUMMARY | 2025-03-09 13:14 | XMS_ITS | Encounter Summary ---
Author Organization [facility] Address [address] [place] [address] Care Team Providers Care Senior Research Project Manager Name Role Phone Yesenia Maria DO Primary Care Provider [phone] Encounter Details Date Type Department Care Team (Latest Contact Info) Description 04/10/2010 Outpatient Historical [facility] [address] [place] [address] Ajay Rodriguez MD NO ADDRESS ON FILE [...] on file Legal Sex Male 2:36 AM CLAY ROASTER Gender Identity Not on file Sexual Orientation Not on file documented as of this encounter Plan of Treatment Not on file documented as of this encounter Visit Diagnoses Diagnosis Thoracic or lumbosacral neuritis or radiculitis, unspecified- Primary documented in this encounter Additional Health Concerns Infection Onset Date Last Indicated Resolved Time R/O COVID-19 01/26/2020 01/26/2020 01/28/2020 1:46 AM CLAY ROASTER documented as of this encounter Care Teams Senior Research Project Manager Relationship Specialty Start Date End Date Yesenia Maria DO PCP - General Family Practice 04/18/20 07/14/20 documented as of this encounter
--- OUTSIDE RECORDS SUMMARY | 2025-03-09 13:14 | XMS_ITS | Encounter Summary ---
Author Organization [facility] Address [address] [place] [address] Care Team Providers Care Civil Attorney Name Role Phone Yesenia Maria DO Primary Care Provider [phone] Encounter Details Date Type Department Care Team (Latest Contact Info) Description 10/27/2004 Outpatient Historical [facility] Medicine [address] [place] [phone] Yuri Richter MD NO ADDRESS ON FILE HYPERTENSION NOS (Primary Dx); Contusion face/scalp/nck Social History Tobacco Use Types Packs/Day Years Used Date Smoking Tobacco: Never Assessed Sex and Gender Information Value Date Recorded Sex Assigned at Not on file 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 MAN Gender Identity Not on file Sexual Orientation [...] COVID-19 01/26/2020 01/26/2020 01/28/2020 1:46 AM SAW MAN documented as of this encounter Care Teams Civil Attorney Relationship Specialty Start Date End Date Yesenia Maria DO PCP - General Family Practice 04/18/20 07/14/20 documented as of this encounter
--- OUTSIDE RECORDS SUMMARY | 2025-03-09 13:14 | XMS_ITS | Encounter Summary ---
Author Organization [facility] Address [address] [place] [address] Care Team Providers Care Track And Field Coach Name Role Phone Yesenia Maria DO Primary Care Provider Encounter Details Date Type Department Care Team (Late st Contact Info) Description 02/29/2008 Outpatient Historical [facility] DEFAULT DEPARTMENT Miguel Hayden MD [address] [address] Social History Tobacco Use Types Packs/Day Years Used Date Smoking Tobacco: Never Assessed Sex and Gender Information Value Date Recorded Sex Assigned at Not on file Legal Sex Male 2:36 AM PAINT CREW SUPERVISOR Gender Identity Not on file Sexual Orientation Not on file documented as of this encounter Plan of Treatment Not on file documented as of this encounter Procedures Procedure Name Priority Date/Time Associated Diagnosis Comments NM MYOCARD PERF IMAG SPECT SINGL Routine 03/14/2008 12:51 PM PAINT CREW SUPERVISOR documented in this encounter Results * NM MYOCARD PERF IMAG SPECT SINGL (03/14/2008 12:51 PM PAINT CREW SUPERVISOR) 03/14/2008 12:5 1 PM PAINT CREW SUPERVISOR Narrative INTERFACE SYSTEM - 03/14/2008 12:51 PM PAINT CREW SUPERVISOR Radionuclide Myocardial Perfusion SPECT Rest/Adenosine Stress Wall [...] R/O COVID-19 01/26/2020 01/26/2020 01/28/2020 1:46 AM PAINT CREW SUPERVISOR documented as of this encounter Care Teams Track And Field Coach Relationship Specialty Start Date End Date Yesenia Maria DO PCP - General Family Practice 04/18/20 07/14/20 documented as of this encounter
--- OUTSIDE RECORDS SUMMARY | 2025-03-09 13:14 | XMS_ITS | Encounter Summary ---
Author Organization [facility] Address [address] [place] [address] Care Team Providers Care Otr Tanker Truck Driver Name Role Phone Yesenia Maria DO Primary Care Provider [phone] Encounter Details Date Type Department Care Team (Latest Contact Info) Description 10/12/2008 Outpatient Historical [facility] [address] [place] [address] Miguel Hayden MD [address] [phone] Arthrodesis Status (Primary Dx); Thoracic or Lumbosacral [...] on file Legal Sex Male 2:36 AM UNDERWRITING INTERNSHIP Gender Identity Not on file Sexual Orientation Not on file documented as of this encounter Plan of Treatment Not on file documented as of this encounter Visit Diagnoses Diagnosis Arthrodesis status- Primary Thoracic or lumbosacral neuritis or radiculitis, unspecified Lumbago documented in this encounter Additional Health Concerns Infection Onset Date Last Indicated Resolved Time R/O COVID-19 01/26/2020 01/26/2020 01/28/2020 1:46 AM UNDERWRITING INTERNSHIP documented as of this encounter Care Teams Otr Tanker Truck Driver Relationship Specialty Start Date End Date Yesenia Maria DO PCP - General Family Practice 04/18/20 07/14/20 documented as of this encounter
--- OUTSIDE RECORDS SUMMARY | 2025-03-09 13:14 | XMS_ITS | Encounter Summary ---
Author Organization [facility] Address [address] [place] [address] Care Team Providers Care Improvement Nurse Name Role Phone Yesenia Maria DO Primary Care Provider [phone] Encounter Details Date Type Department Care Team (Latest Contact Info) Description 04/27/2005 Outpatient Historical [address] [place] [address] [place] [address] [place] [phone] Melly Jameson DO NO ADDRESS ON FILE STREP SORE THROAT (Primary Dx) Social History Tobacco Use Types Packs/Day Years Used Date Smoking Tobacco: Never Assessed Sex and Gender Information Value Date Recorded Sex Assigned at Not on file Legal Sex Male 2:36 AM FIELD MANAGER Gender Identity Not on file Sexual Orientation Not on file documented as of this encounter Plan of Treatment Not on file documented as of this encounter Visit Diagnoses Diagnosis Streptococcal sore throat- Primary documented in this encounter Additional Health Concerns Infection Onset Date Last Indicated Resolved Time R/O COVID-19 01/26/2020 01/26/2020 01/28/2020 1:46 AM FIELD MANAGER documented as of this encounter Care Teams Improvement Nurse Relationship Specialty Start Date End Date Yesenia Maria DO PCP - General Family Practice 04/18/20 07/14/20 documented as of this encounter
--- OUTSIDE RECORDS SUMMARY | 2025-03-09 13:14 | XMS_ITS | Encounter Summary ---
Author Organization [facility] Address [address] [place] [address] Care Team Providers Care Paving Block Cutter Name Role Phone Yesenia Maria DO Primary Care Provider [phone] Encounter Details Date Type Department Care Team (Late st Contact Info) Description 03/09/2007 Outpatient Historical [facility] Pain Management Procedures [address] [place] [phone] Ajay Rodriguez MD NO ADDRESS ON FILE Social History Tobacco Use Types Packs/Day Years Used Date Smoking Tobacco: Never Assessed Sex and Gender Information Value Date Recorded Sex Assigned at Not on file Legal Sex Male 2:36 AM VIBRATING SCREEN OPERATOR Gender Identity Not on file Sexual Orientation Not on file documented as of this encounter Plan of Treatment Not on file documented as of this encounter Visit Diagnoses Not on filedocumented in this encounter Additional Health Concerns Infection Onset Date Last Indicated Resolved Time R/O COVID-19 01/26/2020 01/26/2020 01/28/2020 1:46 AM VIBRATING SCREEN OPERATOR documented as of this encounter Care Teams Paving Block Cutter Relationship Specialty Start Date End Date Yesenia Maria DO PCP - General Family Practice 04/18/20 07/14/20 documented as of this encounter
--- OUTSIDE RECORDS SUMMARY | 2025-03-09 13:14 | XMS_ITS | Encounter Summary ---
Author Organization [facility] Address [address] [facility] Attn: Epic Prelude ADT [place] [address] Care Team Providers Care Players Club Representative Name Role Phone Yesenia Maria DO Primary Care Provider [phone] Encounter Details Date Type Department Care Team (Late st Contact Info) Description 02/06/2008 Outpatient Historical Jimmy Feliciano MD NO ADDRESS ON FILE Social History Tobacco Use Types Packs/Day Years Used Date Smoking Tobacco: Never Assessed Sex and Gender Information Value Date Recorded Sex Assigned at Not on file Legal Sex Male 2:36 AM SLURRY BLENDER Gender Identity Not on file Sexual Orientation Not on file documented as of this encounter Plan of Treatment Not on file documented as of this encounter Procedures Procedure Name Priority Date/Time Associated Diagnosis Comments HIV DETECTION W/REFLX CONFIRMATION Routine 02/06/2008 11:43 AM SLURRY BLENDER HEPATITIS B SURFACE ANTIGEN Routine 02/06/2008 11:43 AM SLURRY BLENDER HEPATITIS C ANTIBODY Routine 02/06/2008 11:43 AM SLURRY BLENDER documented in this encounter Results * HEPATITIS B SURFACE ANTIGEN (02/06/2008 11:43 AM SLURRY BLENDER) HEPATITIS B SURFACE AG Non-Reacti ve Non-Reacti ve [facility] Blood specimen (specimen) 02/06/2008 11:43 AM SLURRY BLENDER 02/06/2008 11:43 AM SLURRY BLENDER us Jimmy Feliciano MD CHEMISTRY ORDERABLES Final Res ult Performing Organization Address [facility] Phone Number INTERFACE SYSTEM Refer to clinic/hospital department [facility] CLIA# [id number] [address] [place] [address] * HEPATITIS C ANTIBODY (02/06/2008 11:43 AM SLURRY BLENDER) HEPATITIS C AB Non-React ghulam Non-React ghulam [facility] Comment: ansiHCV antibody testing is [...] desired. Blood specimen (specimen) 02/06/2008 11:43 AM SLURRY BLENDER 02/06/2008 11:43 AM SLURRY BLENDER Jimmy Feliciano MD CHEMISTRY ORDERABLES Final Res ult Performing Organization Address [facility] Phone Number INTERFACE SYSTEM Refer to clinic/[facility] CLIA# [id number] [address] [place] [address] * HIV ANTIBODY W/REFLX CONFIRMATION (02/06/2008 11:43 AM SLURRY BLENDER) HIV-1 AND 2 ABS Negative Negative [facility] Comment: Interpretation for HIV Results: Negative result: Negative for antibodies to HIV-1 and HIV-2 by EIA. Reactive result: Repeatedly Reactive for antibodies to HIV-1 and/or HIV-2 by EIA. Due to possible non-specific reactions from other causes, this specimen has been sent for confirmation by Western Blot. Blood specimen (specimen) 02/06/2008 11:43 AM SLURRY BLENDER 02/06/2008 11:43 AM SLURRY BLENDER us Jimmy Feliciano MD CHEMISTRY ORDERABLES Final Res ult Performing Organization Address [facility] Phone Number INTERFACE SYSTEM Refer to clinic/hospital department [facility] CLIA# [id number] [address] [place] [address] documented in this encounter Visit Diagnoses Not on filedocumented in this encounter Additional Health Concerns Infection Onset Date Last Indicated Resolved Time R/O COVID-19 01/26/2020 01/26/2020 01/28/2020 1:46 AM SLURRY BLENDER documented as of this encounter Care Teams Players Club Representative Relationship Specialty Start Date End Date Yesenia Maria DO PCP - General Family Practice 04/18/20 07/14/20 documented as of this encounter
--- OUTSIDE RECORDS SUMMARY | 2025-03-09 13:14 | XMS_ITS | Encounter Summary ---
Author Organization [facility] Address [address] [place] [address] Care Team Providers Care Sheet Cutting Operator Name Role Phone MariaYesenia dawson Primary Care Provider [phone] Encounter Details Date Type Department Care Team (Latest Contact Info) Description 01/25/2009 Outpatient Historical [facility] [address] [place] [address] Ajay Bustamante, DO [address] [place] [address] Pain in Soft Tissues of [...] on file Legal Sex Male 2:36 AM FARMWORKER GRAIN Gender Identity Not on file Sexual Orientation [...] R/O COVID-19 01/26/2020 01/26/2020 01/28/2020 1:46 AM FARMWORKER GRAIN documented as of this encounter Care Teams Sheet Cutting Operator Relationship Specialty Start Date End Date Yesenia Maria DO PCP - General Family Practice 04/18/20 07/14/20 documented as of this encounter
--- OUTSIDE RECORDS SUMMARY | 2025-03-09 13:14 | XMS_ITS | Encounter Summary ---
Author Organization [facility] Address [address] [place] [address] Care Team Providers Care Ear Mold Laboratory Technician Name Role Phone Yesenia Maria DO Primary Care Provider [phone] Encounter Details Date Type Department Care Team (Latest Contact Info) Description 11/08/2006 Outpatient Historical [facility] Orthopedics[address] [place] [address] Ajay Bustamante, DO [address] [place] [address] Other Joint Derangement, not Elsewhere Classified, Ankle and Foot (Primary Dx) Social History Tobacco Use Types Packs/Day Years Used Date Smoking Tobacco: Never Assessed Sex and Gender Information Value Date Recorded Sex Assigned at Not on file Legal Sex Male 2:36 AM PBX WIRE CHIEF Gender Identity Not on file Sexual Orientation Not on file documented as of this encounter Plan of Treatment Not on file documented as of this encounter Visit Diagnoses Diagnosis Other joint derangement, not elsewhere classified, ankle and foot- Primary documented in this encounter Additional Health Concerns Infection Onset Date Last Indicated Resolved Time R/O COVID-19 01/26/2020 01/26/2020 01/28/2020 1:46 AM PBX WIRE CHIEF documented as of this encounter Care Teams Ear Mold Laboratory Technician Relationship Specialty Start Date End Date Yesenia Maria DO PCP - General Family Practice 04/18/20 07/14/20 documented as of this encounter
--- OUTSIDE RECORDS SUMMARY | 2025-03-09 13:14 | XMS_ITS | Encounter Summary ---
Author Organization [facility] Address [address] [place] [address] Care Team Providers Care Ingot Passer Name Role Phone Yeseina Maria DO Primary Care Provider [phone] Encounter Details Date Type Department Care Team (Late st Contact Info) Description 04/03/2004 Outpatient Historical [facility] Medicine [address] [address] Panda Coates MD [address] [place] [address] CELLULITIS OF HAND (Primary Dx) Social History Tobacco Use Types Packs/Day Years Used Date Smoking Tobacco: Never Assessed Sex and Gender Information Value Date Recorded Sex Assigned at Not on file Legal Sex Male 2:36 AM NOZZLE TENDER Gender Identity Not on file Sexual Orientation Not on file documented as of this encounter Plan of Treatment Not on file documented as of this encounter Visit Diagnoses Diagnosis Cellulitis and abscess of hand, except fingers and thumb- Primary documented in this encounter Additional Health Concerns Infection Onset Date Last Indicated Resolved Time R/O COVID-19 01/26/2020 01/26/2020 01/28/2020 1:46 AM NOZZLE TENDER documented as of this encounter Care Teams Ingot Passer Relationship Specialty Start Date End Date Yesenia Maria DO PCP - General Family Practice 04/18/20 07/14/20 documented as of this encounter
--- OUTSIDE RECORDS SUMMARY | 2025-03-09 13:14 | XMS_ITS | Encounter Summary ---
Author Organization [facility] Address [address] [place] [address] Care Team Providers Care Central Stores Attendant Name Role Phone Yesenia Maria DO Primary Care Provider [phone] Encounter Details Date Type Department Care Team (Latest Contact Info) Description 11/29/2006 Outpatient Historical [facility] Orthopedics[address] [place] [address] Ajay Bustamante, DO [address] [place] [address] Thoracic or Lumbosacral Neuritis or Radiculitis, Unspecified (Primary Dx); Sciatic Nerve Lesion Social History Tobacco Use Types Packs/Day Years Used Date Smoking Tobacco: Never Assessed Sex and Gender Information Value Date Recorded Sex Assigned at Not on file Legal Sex Male 2:36 AM DEPUTY HEAD Gender Identity Not on file Sexual [...] COVID-19 01/26/2020 01/26/2020 01/28/2020 1:46 AM DEPUTY HEAD documented as of this encounter Care Teams Central Stores Attendant Relationship Specialty Start Date End Date Yesenia Maria DO PCP - General Family Practice 04/18/20 07/14/20 documented as of this encounter
--- OUTSIDE RECORDS SUMMARY | 2025-03-09 13:14 | XMS_ITS | Encounter Summary ---
Author Organization [facility] Address [address] [place] [address] Care Team Providers Care Programmer Analyst Consultant Name Role Phone Yesenia Maria DO Primary Care Provider [phone] Encounter Details Date Type Department Care Team (Latest Contact Info) Description 11/10/2004 Outpatient Historical [facility] Medicine [address] [place] [phone] Gregor Bro MD NO ADDRESS ON FILE ACUTE BRONCHITIS (Primary Dx) Social History Tobacco Use Types Packs/Day Years Used Date Smoking Tobacco: Never Assessed Sex and Gender Information Value Date Recorded Sex Assigned at Not on file Legal Sex Male 2:36 AM REFINING STILL OPERATOR Gender Identity Not on file Sexual Orientation Not on file documented as of this encounter Plan of Treatment Not on file documented as of this encounter Visit Diagnoses Diagnosis Acute bronchitis- Primary documented in this encounter Additional Health Concerns Infection Onset Date Last Indicated Resolved Time R/O COVID-19 01/26/2020 01/26/2020 01/28/2020 1:46 AM REFINING STILL OPERATOR documented as of this encounter Care Teams Programmer Analyst Consultant Relationship Specialty Start Date End Date Yesenia Maria DO PCP - General Family Practice 04/18/20 07/14/20 documented as of this encounter
--- OUTSIDE RECORDS SUMMARY | 2025-03-09 13:14 | XMS_ITS | Encounter Summary ---
Author Organization [facility] Address [address] [place] [address] Care Team Providers Care Wire Mill Operator Name Role Phone Yesenia Maria DO Primary Care Provider [phone] Encounter Details Date Type Department Care Team (Late st Contact Info) Description 05/06/2007 Outpatient Historical [facility] Medicine [address] [place] [phone] Yuri Richter MD NO ADDRESS ON FILE Social History Tobacco Use Types Packs/Day Years Used Date Smoking Tobacco: Never Assessed Sex and Gender Information Value Date Recorded Sex Assigned at Not on file Legal Sex Male 2:36 AM FINANCIAL INVESTMENT MANAGER Gender Identity Not on file Sexual Orientation Not on file documented as of this encounter Plan of Treatment Not on file documented as of this encounter Visit Diagnoses Not on filedocumented in this encounter Additional Health Concerns Infection Onset Date Last Indicated Resolved Time R/O COVID-19 01/26/2020 01/26/2020 01/28/2020 1:46 AM FINANCIAL INVESTMENT MANAGER documented as of this encounter Care Teams Wire Mill Operator Relationship Specialty Start Date End Date Yesenia Maria DO PCP - General Family Practice 04/18/20 07/14/20 documented as of this encounter
--- OUTSIDE RECORDS SUMMARY | 2025-03-09 13:14 | XMS_ITS | Encounter Summary ---
Author Organization [facility] Address [address] [place] [address] Care Team Providers Care Commercial Accountant Name Role Phone Yesenia Maria DO Primary Care Provider [phone] Encounter Details Date Type Department Care Team (Latest Contact Info) Description 11/01/2006 Outpatient Historical [facility] Medicine [address] [place] [phone] Yuri Richter MD NO ADDRESS ON FILE Unspecified Backache (Primary Dx) Social History Tobacco Use Types Packs/Day Years Used Date Smoking Tobacco: Never Assessed Sex and Gender Information Value Date Recorded Sex Assigned at Not on file Legal Sex Male 2:36 AM RANGE ECOLOGIST Gender Identity Not on file Sexual Orientation Not on file documented as of this encounter Plan of Treatment Not on file documented as of this encounter Visit Diagnoses Diagnosis Backache, unspecified- Primary documented in this encounter Additional Health Concerns Infection Onset Date Last Indicated Resolved Time R/O COVID-19 01/26/2020 01/26/2020 01/28/2020 1:46 AM RANGE ECOLOGIST documented as of this encounter Care Teams Commercial Accountant Relationship Specialty Start Date End Date Yesenia Maria DO PCP - General Family Practice 04/18/20 07/14/20 documented as of this encounter
--- OUTSIDE RECORDS SUMMARY | 2025-03-09 13:14 | XMS_ITS | Encounter Summary ---
Author Organization [facility] Address [address] [place] [address] Care Team Providers Care Cashier Courtesy Booth Name Role Phone Yesenia Maria DO Primary Care Provider [phone] Encounter Details Date Type Department Care Team (Late st Contact Info) Description 03/19/[address] [facility] Medicine [address] [address] Panda Coates MD [address] [place] [address] BACKACHE NOS (Primary Dx); CRAMP IN LIMB Social History Tobacco Use Types Packs/Day Years Used Date Smoking Tobacco: Never Assessed Sex and Gender Information Value Date Recorded Sex Assigned at Not on file Legal Sex Male 2:36 AM CHECKER IN Gender Identity Not on file Sexual Orientation Not on file documented as of this encounter Plan of Treatment Not on file documented as of this encounter Visit Diagnoses Diagnosis Backache, unspecified- Primary Cramp of limb documented in this encounter Additional Health Concerns Infection Onset Date Last Indicated Resolved Time R/O COVID-19 01/26/2020 01/26/2020 01/28/2020 1:46 AM CHECKER IN documented as of this encounter Care Teams Cashier Courtesy Booth Relationship Specialty Start Date End Date Yesenia Maria DO PCP - General Family Practice 04/18/20 07/14/20 documented as of this encounter
--- OUTSIDE RECORDS SUMMARY | 2025-03-09 13:14 | XMS_ITS | Encounter Summary ---
Author Organization [facility] Address [address] [place] [address] Care Team Providers Care Rig Builder Helper Name Role Phone Yesenia Maria DO Primary Care Provider [phone] Encounter Details Date Type Department Care Team (Latest Contact Info) Description 11/28/2007 Outpatient Historical [facility] Pain Management Procedures [address] [place] [phone] Anibal Smyth Lumbosacral Spondylosis without Myelopathy; Degeneration of Lumbar or Lumbosacral Intervertebral Disc; Unspecified Essential Hypertension; Unspecified Asthma; Unspecified Arthropathy, Site Unspecified; Personal History of Allergy to Analgesic Agent Social History Tobacco Use Types Packs/Day Years Used Date Smoking Tobacco: Never Assessed Sex and Gender Information Value Date Recorded Sex Assigned at Not on file Legal Sex Male 2:36 AM FLEET MAINTENANCE FOREMAN Gender Identity Not on file Sexual [...] 11/29/2007 9:49 AM CDT Finalized by interface [employer]Me[employer] utility. No report expected. Procedure Note 04/16/2008 Finalized by interface [employer] utility. No report expected. Anibal Smyth DIAGNOSTIC [...] R/O COVID-19 01/26/2020 01/26/2020 01/28/2020 1:46 AM FLEET MAINTENANCE FOREMAN documented as of this encounter Care Teams Rig Builder Helper Relationship Specialty Start Date End Date Yesenia Maria DO PCP - General Family Practice 04/18/20 07/14/20 documented as of this encounter
--- OUTSIDE RECORDS SUMMARY | 2025-03-09 13:14 | XMS_ITS | Encounter Summary ---
Author Organization [facility] Address [address] [place] [address] Care Team Providers Care Business Writer Name Role Phone Yesenia Maria DO Primary Care Provider [phone] Encounter Details Date Type Department Care Team (Late st Contact Info) Description 04/07/2004 Outpatient Historical [facility] Medicine [address] [address] Panda Coates MD [address] [place] [phone] CELLULITIS OF HAND (Primary Dx) Social History Tobacco Use Types Packs/Day Years Used Date Smoking Tobacco: Never Assessed Sex and Gender Information Value Date Recorded Sex Assigned at Not on file Legal Sex Male 2:36 AM LAB ANIMAL TECHNOLOGIST Gender Identity Not on file Sexual Orientation Not on file documented as of this encounter Plan of Treatment Not on file documented as of this encounter Visit Diagnoses Diagnosis Cellulitis and abscess of hand, except fingers and thumb- Primary documented in this encounter Additional Health Concerns Infection Onset Date Last Indicated Resolved Time R/O COVID-19 01/26/2020 01/26/2020 01/28/2020 1:46 AM LAB ANIMAL TECHNOLOGIST documented as of this encounter Care Teams Business Writer Relationship Specialty Start Date End Date Yesenia Maria DO PCP - General Family Practice 04/18/20 07/14/20 documented as of this encounter
--- OUTSIDE RECORDS SUMMARY | 2025-03-09 13:14 | XMS_ITS | Encounter Summary ---
Author Organization [facility] Address [address] [place] [address] Care Team Providers Care Media Developer Name Role Phone Yesenia Maria DO Primary Care Provider [phone] Encounter Details Date Type Department Care Team (Latest Contact Info) Description 10/07/2004 Outpatient Historical [facility] Medicine [address] [place] [id number] Yuri Richter MD NO ADDRESS ON FILE CONJUNCTIVITIS NOS (Primary Dx) Social History Tobacco Use Types Packs/Day Years Used Date Smoking Tobacco: Never Assessed Sex and Gender Information Value Date Recorded Sex Assigned at Not on file Legal Sex Male 2:36 AM ARTIST SCIENTIFIC Gender Identity Not on file Sexual Orientation Not on file documented as of this encounter Plan of Treatment Not on file documented as of this encounter Visit Diagnoses Diagnosis Conjunctivitis unspecified- Primary Conjunctivitis, unspecified documented in this encounter Additional Health Concerns Infection Onset Date Last Indicated Resolved Time R/O COVID-19 01/26/2020 01/26/2020 01/28/2020 1:46 AM ARTIST SCIENTIFIC documented as of this encounter Care Teams Media Developer Relationship Specialty Start Date End Date Yesenia Maria DO PCP - General Family Practice 04/18/20 07/14/20 documented as of this encounter
--- OUTSIDE RECORDS SUMMARY | 2025-03-09 13:14 | XMS_ITS | Encounter Summary ---
Author Organization [facility] Address [address] [place] [address] Care Team Providers Care Marketing Technologist Name Role Phone Yesenia Maria DO Primary Care Provider [phone] Encounter Details Date Type Department Care Team (Latest Contact Info) Description 11/14/2003 Outpatient Historical [facility] Medicine [address] [place] [phone] Yuri Richter MD NO ADDRESS ON FILE ACUTE SINUSITIS NOS (Primary Dx) Social History Tobacco Use Types Packs/Day Years Used Date Smoking Tobacco: Never Assessed Sex and Gender Information Value Date Recorded Sex Assigned at Not on file Legal Sex Male 2:36 AM ELECTRICAL MANAGER Gender Identity Not on file Sexual Orientation Not on file documented as of this encounter Plan of Treatment Not on file documented as of this encounter Visit Diagnoses Diagnosis Acute sinusitis, unspecified- Primary documented in this encounter Additional Health Concerns Infection Onset Date Last Indicated Resolved Time R/O COVID-19 01/26/2020 01/26/2020 01/28/2020 1:46 AM ELECTRICAL MANAGER documented as of this encounter Care Teams Marketing Technologist Relationship Specialty Start Date End Date Yesenia Maria DO PCP - General Family Practice 04/18/20 07/14/20 documented as of this encounter
--- OUTSIDE RECORDS SUMMARY | 2025-03-09 13:14 | XMS_ITS | Encounter Summary ---
Author Organization [facility] Address [address] [place] [address] Care Team Providers Care Mine Supervisor Name Role Phone Yesenia Maria DO Primary Care Provider [phone] Encounter Details Date Type Department Care Team (Late st Contact Info) Description 06/04/2008 Emergency [facility] [address] [place] [address] Piyush Sahu MD [address] [place] [address] Yuri Richter MD NO ADDRESS ON FILE [...] on file Legal Sex Male 2:36 AM TAPE KELLER OPERATOR Gender Identity Not on file Sexual Orientation Not on file documented as of this encounter Plan of Treatment Not on file documented as of this encounter Visit Diagnoses Diagnosis Infective otitis externa, unspecified- Primary Perforation of tympanic membrane, unspecified documented in this encounter Additional Health Concerns Infection Onset Date Last Indicated Resolved Time R/O COVID-19 01/26/2020 01/26/2020 01/28/2020 1:46 AM TAPE KELLER OPERATOR documented as of this encounter Care Teams Mine Supervisor Relationship Specialty Start Date End Date Yesenia Maria DO PCP - General Family Practice 04/18/20 07/14/20 documented as of this encounter
--- OUTSIDE RECORDS SUMMARY | 2025-03-09 13:14 | XMS_ITS | Encounter Summary ---
Author Organization [facility] Address [address] [place] [address] Care Team Providers Care Oracle Etl Developer Name Role Phone Yesenia Maria DO Primary Care Provider [phone] Encounter Details Date Type Department Care Team (Latest Contact Info) Description 05/10/2009 Outpatient Historical [facility] [address] [place] [address] Ajay Bustamante DO [address] [place] [address] Unspecified Ankle and Foot Joint [...] on file Legal Sex Male 2:36 AM GEOTHERMAL PRODUCTION MANAGER Gender Identity Not on file Sexual Orientation Not on file documented as of this encounter Plan of Treatment Not on file documented as of this encounter Visit Diagnoses Diagnosis Unspecified ankle and foot joint derangement- Primary documented in this encounter Additional Health Concerns Infection Onset Date Last Indicated Resolved Time R/O COVID-19 01/26/2020 01/26/2020 01/28/2020 1:46 AM GEOTHERMAL PRODUCTION MANAGER documented as of this encounter Care Teams Oracle Etl Developer Relationship Specialty Start Date End Date Yesenia Maria DO PCP - General Family Practice 04/18/20 07/14/20 documented as of this encounter
--- OUTSIDE RECORDS SUMMARY | 2025-03-09 13:14 | XMS_ITS | Encounter Summary ---
Author Organization [facility] Address [address] [place] [address] Care Team Providers Care Veneer Layer Name Role Phone Yesenia Maria DO Primary Care Provider [phone] Encounter Details Date Type Department Care Team (Latest Contact Info) Description 12/12/2007 Outpatient [facility] [address] [facility] [address] [place] [address] Miguel Hayden MD [address] [place] [address] Lumbago; Unspecified Essential Hypertension; Unspecified Arthropathy, Site Unspecified; Unspecified Asthma Social History Tobacco Use Types Packs/Day Years Used Date Smoking Tobacco: Never Assessed Sex and Gender Information Value Date Recorded Sex Assigned at Not on file Legal Sex Male 2:36 AM PLUG MAKER Gender Identity Not on file Sexual Orientation Not on file documented as of this encounter Plan of Treatment Not on file documented as of this encounter Visit Diagnoses Diagnosis Lumbago Unspecified essential hypertension Arthropathy, unspecified, site unspecified Unspecified asthma(493.90) Unspecified asthma documented in this encounter Additional Health Concerns Infection Onset Date Last Indicated Resolved Time R/O COVID-19 01/26/2020 01/26/2020 01/28/2020 1:46 AM PLUG MAKER documented as of this encounter Care Teams Veneer Layer Relationship Specialty Start Date End Date Yesenia Maria DO PCP - General Family Practice 04/18/20 07/14/20 documented as of this encounter
--- OUTSIDE RECORDS SUMMARY | 2025-03-09 13:14 | XMS_ITS | Encounter Summary ---
Author Organization [facility] Address [address] [place] [address] Care Team Providers Care Grounds Foreman Name Role Phone Yesenia Maria DO Primary Care Provider [phone] Encounter Details Date Type Department Care Team (Latest Contact Info) Description 09/14/2007 Outpatient [facility] [address] [facility] [address] [place] [address] Miguel Hayden MD [address] [facility] [address] [place] [address] Obesity, Unspecified; Degeneration of Lumbar or Lumbosacral Intervertebral Disc; Displacement of Lumbar Intervertebral Disc without Myelopathy; Unspecified Essential Hypertension; Unspecified Asthma; Unspecified Arthropathy, Site Unspecified Social History Tobacco Use Types Packs/Day Years Used Date Smoking Tobacco: Never Assessed Sex and Gender Information Value Date Recorded Sex Assigned at Not on file Legal Sex Male 2:36 AM BASE CLOTH INSPECTOR Gender Identity Not on file Sexual [...] R/O COVID-19 01/26/2020 01/26/2020 01/28/2020 1:46 AM BASE CLOTH INSPECTOR documented as of this encounter Care Teams Grounds Foreman Relationship Specialty Start Date End Date Yesenia Maria DO PCP - General Family Practice 04/18/20 07/14/20 documented as of this encounter
--- OUTSIDE RECORDS SUMMARY | 2025-03-09 13:14 | XMS_ITS | Encounter Summary ---
Author Organization [facility] Address [address] [place] [address] Care Team Providers Care Public Policy Associate Name Role Phone Yesenia Maria DO Primary Care Provider [phone] Encounter Details Date Type Department Care Team (Latest Contact Info) Description 03/06/2010 Outpatient Historical [facility] [address] [place] [address] Ajay Rodriguez MD NO ADDRESS ON FILE [...] file Legal Sex Male 2:36 AM PRODUCTION LINE MECHANIC Gender Identity Not on file Sexual Orientation Not on file documented as of this encounter Plan of Treatment Not on file documented as of this encounter Visit Diagnoses Diagnosis Disorders of sacrum- Primary documented in this encounter Additional Health Concerns Infection Onset Date Last Indicated Resolved Time R/O COVID-19 01/26/2020 01/26/2020 01/28/2020 1:46 AM PRODUCTION LINE MECHANIC documented as of this encounter Care Teams Public Policy Associate Relationship Specialty Start Date End Date Yesenia Maria DO PCP - General Family Practice 04/18/20 07/14/20 documented as of this encounter
--- OUTSIDE RECORDS SUMMARY | 2025-03-09 13:14 | XMS_ITS | Clinical Summary ---
Author Organization [facility] [place] tone Address [address] [place] [address] Care Team Providers Care Pump Stitcher Name Role Phone Katerin Dallas DO Primary Care Provider Allergies Active Allergy Reactions Criticality Noted Date Comments Codeine Nausea and Vomiting Low 04/13/2008 Morphine Rash Low 06/06/2018 Medications diabetic shoes with insertsIndicati ons:Type 2 diabetes mellitus with hyperglycemia, with long-term current use of insulin ([facility]),Type 2 diabetes mellitus with diabetic peripheral angiopathy without gangrene, with long-term current use of insulin ([facility]),Callu s of foot Length of Need: 99 [...] 023 Active Blood-Glucose Meter,Continuou s (Dexcom G6 Middleware Consultant)Indica tions:Type 2 diabetes mellitus with hyperglycemia, with long-term current use of insulin (CMS/[facility]) Use to monitor blood glucose continuously throughout the day. 1 Each 023 Active Blood-Glucose Transmitter (Dexcom G6 Transmitter) DeviceIndicatio ns:Type 2 diabetes mellitus with hyperglycemia, with long-term current use of insulin (CMS/HCC) Fasten on top of the sensor to wirelessly send data to the sliver chopper. Must be changed every 3 months. 1 [...] night Active fluticasone propionate (FLONASE) 50 mcg/spray [place], Suspension nasal inhaler Administer 2 Sprays in [...] meals. 15 mL 3 024 Active Insulin Caroleen, Disposable, (BD Ultra-Fine Mini Pen Needle) 31 gauge x /16 NeedleIndicatio ns:Type 2 diabetes mellitus with hyperglycemia, with long-term current use of insulin (CMS/[facility]) USE DIRECTED WITH VICTOZA AND TRESIBA DAILY 200 Each 2 024 Active acetaminophen (TYLENOL) 325 mg tablet Take 2 Tablets (650 mg) by mouth every 6 hours as needed for Other (See Comment) (See admin instructions). 025 Active clopidogreL (PLAVIX) 75 mg Tablet [...] hyperglycemia, with long-term current use of insulin (CMS/[facility]),Type 2 diabetes mellitus with diabetic peripheral angiopathy without gangrene, with long-term current use of insulin ([facility]) Inject 35 Units by subcutaneous injection daily at bedtime. INJECT 35 UNITS SUBCUTANEOUSLY ONCE DAILY AT BEDTIME 30 mL 1 025 Active atorvastatin (LIPITOR) 80 mg tablet Take 1 Tablet (80 mg) by mouth daily at bedtime. 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 02/14/2025 Orders Only [address] [place] [phone] Torey Smith CMA 01/28/[address] [place] [phone] Katerin Dallas DO 01/10/2025 External Device Data STL ABSTRACTION Provider, Abstract 01/09/2025 External Device Data STL ABSTRACTION Provider, Abstract 01/03/2025 10:30 AM CDT Office Visit [facility] V[facility] Surgery [place] [address] [place] [address] Luther Babin NP Bilateral carotid artery stenosis (Primary Dx); S/P carotid endarterectomy; Essential hypertension; PAD (peripheral artery disease) 01/03/2025 9:30 AM CDT Ancillary Procedure [facility]- [place] [address] [place] [address] Luther Babin NP Stenosis of right carotid artery 01/01/[address] [place] [phone] Katerin Dallas DO 12/27/[address] [place] [phone] Katerin Dallas DO Type 2 diabetes mellitus with hyperglycemia, with long-term current use of insulin ([facility]); Type 2 diabetes mellitus with diabetic peripheral angiopathy without gangrene, with long-term current use of insulin ([facility]) 12/26/2024 [facility] [address] [place] [phone] Shalini Blanco PA Type 2 diabetes mellitus with hyperglycemia, with long-term current use of insulin ([facility]); Type 2 diabetes mellitus with diabetic peripheral angiopathy without gangrene, with long-term current use of insulin ([facility]) 12/21/[address] [place] [phone] Katerin Dallas DO Allergic rhinitis, unspecified seasonality, unspecified trigger 12/09/2024 [facility] [address] [place] [phone] Shalini Blanco PA from Last 3 Months Immunizations Immunization Administration Dates Next Due (ADACEL/BOOSTRIX)(10 YR UP) TDAP VACCINE, 0.5ML, IM 09/12/2018 (PNEUMOVAX 23)(50 YRS UP) PN EUMOCOCCAL POLYSACCHARIDE (PPV23) 0.5 ML, IM 03/28/2018,12/22/2011,12/12/2004 (PREVNAR 20)(6 WKS UP) PNEUM OCOCCAL CONJUGATE VACCINE 20-VALENT (PCV20), POLYSACCHARIDE [id number] CONJUGATE, ADJUVANT 0.5 ML (PF) IM 01/25/2024 [...] Date Smoking Tobacco: Every Day Cigarettes 0.3 0.5 Started: 07/27/1979 Smokeless Tobacco: Never Tobacco Cessation:Ready [...] on file Legal Sex Male 1:33 AM DIRECTOR OF FRONT OFFICE Gender Identity Not on file Sexual Orientation [...] 07/04/2025 8:00 AM CDT Ancillary Procedure [facility]- [place] [address] [place] [address] Luther Babin NP [address] [place] [address] 07/04/2025 8:30 AM CDT Ancillary Procedure [facility]- [place] [address] [place] [address] Luther Babin NP [address] [place] [address] 07/04/2025 9:30 AM CDT Office Visit [facility] Vascular Surgery [place] [address] [place] [address] Luther Babin NP [address] [place] [address] Health Maintenance Due Date Last [...] 03/28/2018, 12/19/2012, Additional history exists COVID-19 Vaccine (3 - 2024-2 6 season) 2024 12/12/2021, 05/02/2021 DIABETES: A1C [...] Heart Failure Problem No Rauchwater, Arelis Ivanna, CREW SUPERVISOR Heart Failure Goal Care Plan Heart Failure [...] Plan Heart Failure Problem No Kannan, Kristy, FOREST NURSERY SUPERVISOR Heart Failure Goal Care Plan Heart Failure Problem No Barriga, Mabel, FOREST NURSERY SUPERVISOR Heart Failure Goal Care Plan Heart Failure Problem No Galo, Chayo L, FOREST NURSERY SUPERVISOR Heart Failure Goal Care Plan Heart Failure Problem No Galo, Chayo L, FOREST NURSERY SUPERVISOR Heart Failure Goal Care Plan Heart Failure Problem No Galo, Chayo L, FOREST NURSERY SUPERVISOR Heart Failure Goal Care Plan Heart Failure Problem No Galo, Chayo L, FOREST NURSERY SUPERVISOR Heart Failure Goal Care Plan Heart Failure Problem No Rauchwater, Arelis Ivanna, CREW SUPERVISOR Heart Failure Goal Care Plan Heart Failure Problem No Rauchwater, Arelis Ivanna, CREW SUPERVISOR Heart Failure Goal Care Plan Heart Failure Problem No Barriga, Mabel, FOREST NURSERY SUPERVISOR Heart Failure Goal Care Plan Heart Failure Problem No Barriga, Mabel, FOREST NURSERY SUPERVISOR Heart Failure Goal Care Plan Heart Failure Problem No Barriga, Mabel, FOREST NURSERY SUPERVISOR Heart Failure Goal Care Plan Heart Failure Problem No Salem, Denise D, CREW SUPERVISOR Heart Failure Goal Care Plan Heart Failure Problem No Salem, Denise D, CREW SUPERVISOR Heart Failure Goal Care Plan Heart Failure Problem No Salem, Denise D, CREW SUPERVISOR Heart Failure Goal Care Plan Heart Failure Problem No [place], Denise D, CREW SUPERVISOR Medical Devices Implanted Type Area Wood Carver Hand Device Identifier Shelf Expiration Date Model / Serial / Lot Atriclip Flex-V Di Exclusion 40mm [facility]40 - [id number] Implanted:Qty : 1 on 02/07/2024 by Heladio Nguyen MD at [facility] Cardiovascular Device N/A: Heart ATRICURE INC [id number] 11/13/2026 ACHV40 / / [id number] Clip Ligating Horizon Med 701329 - [facility] - [id number] Implanted:Qty : 1 on 02/07/2024 by Heladio Nguyen MD at [facility] Clip N/A: Chest TELEFLEX- WECK CLOSURE SYS [id number] 10/06/2028 [id number] / / [id number] Otolaryngology Surgeon Ligaclip l Mcs20 - [id number] Implanted:Qty : 1 on 02/07/2024 by Heladio Nguyen MD at [facility] Clip N/A: Chest J&J- ETHICON ENDO-SURGERY INC [id number] 11/12/2028 MCS20 / / [id number] Otolaryngology Surgeon Ligaclip Sml Mcs20 - [id number] Implanted:Qty : 1 on 02/07/2024 by Heladio Nguyen MD at [facility] Clip N/A: Chest J&J- ETHICON ENDO-SURGERY INC [id number] 11/12/2028 MCS20 / / [id number] Otolaryngology Surgeon Ligaclip Sml Mcs20 - [id number] Implanted:Qty : 1 on 02/07/2024 by Heladio Nguyen MD at [facility] Clip N/A: Chest J&J- ETHICON ENDO-SURGERY INC [id number] 11/12/2028 MCS20 / / [id number] Clip Ligating Horizon Red 023418 - Csc - [id number] Implanted:Qty : 1 on 04/11/2024 by Chin Mclaughlin MD at [facility] Clip Right: Neck TELEFLEX INC [id number] 11/10/2028 412896 / / [id number] Clip Ligating Horizon Med Ti 908881 - Csc - [id number] Implanted:Qty : 1 on 04/11/2024 by Chin Mclaughlin MD at [facility] Clip Right: Neck TELEFLEX- WECK CLOSURE SYS [id number] 11/12/2028 682089 / / [id number] Patch Vascu-Guard 0.8x8cm Cardio Vg-0108 - [id number] Implanted:Qty : 1 on 04/11/2024 by Chin Mclaughlin MD at [facility] Collagen Right: Carotid SYNOVIS- BIO-VASCULAR INC [id number] 11/08/2025 [id number] / / [id number] Hemostatic Surgiflo 8ml W/ Thrombin 2994 - [id number] Implanted:Qty : 1 on 04/11/2024 by Chin Mclaughlin MD at [facility] Hemostatic Right: Neck J&J- ETHICON INC [id number] 06/12/2025 2994 / / [id number] Agent Hemostat Surgicel 3x4in 1943s - [id number] Implanted:Qty : 1 on 04/11/2024 by Chin Mclaughlin MD at [facility] Right: Neck J&J- ETHICON INC [id number] 12/12/2028 1943S / / [id number] Log [id number] - Lauryn Dynesys Lumbar Fixation - 1 - Cord Dynesys 100mm 11100 Implanted:Qty : 1 on 06/16/2010 Other N/A: Spine Lumbar LAURYN US INC 04/15/2013.0371 1.100 / NA / [id number] Description:two in package Log [id number] - Lauryn Dynesys Lumbar Fixation - 1 - Screw Pedicle 6.4x50mm 16.450 Implanted:Qty : 1 on 06/16/2010 Screw N/A: Spine Lumbar LAURYN US INC 10/13/2010.0371 6.450 / NA / [id number] Description:two screws per p ackage Screw Bio-Tenodesis 7x23mm Ar-1570b - [id number] Implanted:Qty : 1 on 02/07/2013 by Ajay Bustamante, DO Screw Left: Shoulder ARTHREX INC 06/13/2014 AR-1570 B / / [id number] Description:left Screw Sternalock Stiven 2.4x16mm 73-2416 - [id number] Implanted:Qty : 1 on 02/07/2024 by Heladio Nguyen MD at [facility] Screw N/A: Sternum BIOMET MCRFXTN - [place]ENT[place] RACHEL 73-2416 / / Screw Sternalock Stiven 2.4x16mm 73-2416 - [id number] Implanted:Qty : 1 on 02/07/2024 by Heladio Nguyen MD at [facility] Screw N/A: Sternum BIOMET MCRFXTN - [place] RACHEL 73-2416 / / Screw Sternalock Stiven 2.4x16mm 73-2416 - [id number] Implanted:Qty : 1 on 02/07/2024 by Heladio Nguyen MD at [facility] Screw N/A: Sternum BIOMET MCRFXTN - [place] RACHEL 73-2416 / / Screw Sternalock Stiven 2.4x16mm 73-2416 - [id number] Implanted:Qty : 1 on 02/07/2024 by Heladio Nguyen MD at [facility] Screw N/A: Sternum BIOMET MCRFXTN - [place] RACHEL 73-2416 / / Screw Sternalock Stiven 2.4x16mm 73-2416 - [id number] Implanted:Qty : 1 on 02/07/2024 by Heladio Nguyen MD at [facility] Screw N/A: Sternum BIOMET MCRFXTN - [place] RACHEL 73-2416 / / Screw Sternalock Stiven 2.4x16mm 73-2416 - [id number] Implanted:Qty : 1 on 02/07/2024 by Heladio Nguyen MD at [facility] Screw N/A: Sternum BIOMET MCRFXTN - [place] RACHEL 73-2416 / / Screw Sternalock Stiven 2.4x18mm 73-2418 - [id number] Implanted:Qty : 1 on 02/07/2024 by Heladio Nguyen MD at [facility] Screw N/A: Sternum BIOMET MCRFXTN - [place] RACHEL 73-2418 / / Screw Sternalock Stiven 2.4x18mm 73-2418 - [id number] Implanted:Qty : 1 on 02/07/2024 by Heladio Nguyen MD at [facility] Screw N/A: Sternum BIOMET MCRFXTN - [place] R[place]HEL 73-2418 / / Screw Sternalock Stiven 2.4x18mm 73-2418 - [id number] Implanted:Qty : 1 on 02/07/2024 by Heladio Nguyen MD at [facility] Screw N/A: Sternum BIOMET MCRFXTN - [place] R[place]HEL 73-2418 / / Screw Sternalock Stiven 2.4x18mm 73-2418 - [id number] Implanted:Qty : 1 on 02/07/2024 by Heladio Nguyen MD at [facility] Screw N/A: Sternum BIOMET MCRFXTN - [place] R[place]HEL 73-2418 / / Screw Sternalock Stiven 2.4x18mm 73-2418 - [id number] Implanted:Qty : 1 on 02/07/2024 by Heladio Nguyen MD at [facility] Screw N/A: Sternum BIOMET MCRFXTN - [place]HEL 73-2418 / / Screw Sternalock Stiven 2.4x18mm 73-2418 - [id number] Implanted:Qty : 1 on 02/07/2024 by Heladio Nguyen MD at [facility] Screw N/A: Sternum BIOMET MCRFXTN - [place] R[place]HEL 73-2418 / / Screw Sternalock Stiven 2.4x18mm 73-2418 - [id number] Implanted:Qty : 1 on 02/07/2024 by Heladio Nguyen MD at [facility] Screw N/A: Sternum BIOMET MCRFXTN - [place] RACHEL 73-2418 / / Screw Sternalock Stiven 2.4x18mm 73-2418 - [id number] Implanted:Qty : 1 on 02/07/2024 by Heladio Nguyen MD at [facility] Screw N/A: Sternum BIOMET MCRFXTN - [place] RACHEL 73-2418 / / Screw Sternalock Stiven 2.4x18mm 73-2418 - [id number] Implanted:Qty : 1 on 02/07/2024 by Heladio Nguyen MD at [facility] Screw N/A: Sternum BIOMET MCRFXTN - [place] RACHEL 73-2418 / / Screw Sternalock Stiven 2.4x18mm 73-2418 - [id number] Implanted:Qty : 1 on 02/07/2024 by Healdio Nguyen MD at [facility] Screw N/A: Sternum BIOMET MCRFXTN - [place] RACHEL 73-2418 / / Screw Sternalock Stiven 2.4x18mm 73-2418 - [id number] Implanted:Qty : 1 on 02/07/2024 by Heladio Nguyen MD at [facility] Screw N/A: Sternum BIOMET MCRFXTN - [place] RACHEL 73-647 / / Screw Sternalock Stiven 2.4x18mm 73-2417 - [id number] Implanted:Qty : 1 on 02/07/2024 by Heladio Nguyen MD at [facility] Screw N/A: Sternum BIOMET MCRFXTN - [place] RACHEL 73-8 / / Log [id number] - Lauryn Dynesys Lumbar Fixation - 1 - Spacer Dynesys 45mm 2/Ea .645 Implanted:Qty : 1 on 06/16/2010 Spacer N/A: Spine Lumbar LAURYN US INC 08/13/2012 01.0371 0.645 / NA / [id number] Description:two per package Log [id number] - Lauryn Dynesys Lumbar Fixation - 1 - Spacer Dynesys 45mm 2/Ea 64 Implanted:Qty : 1 on 06/16/2010 Spacer N/A: Spine Lumbar LAURYN US INC 08/13/2012 01.0371 0.645 / NA / [id number] H Plate 6-Hole Implanted:Qty : 1 on 02/07/2024 by Heladio Nguyen MD at [facility] N/A: Sternum LAURYN BIOMET- 115.102 .06 / / H Plate 6-Hole Implanted:Qty : 1 on 02/07/2024 by Heladio Nguyen MD at [facility] N/A: Sternum LAURYN BIOMET- 115.102 .06 / / Gold Plate Implanted:Qty : 1 on 02/07/2024 by Heladio Nguyen MD at [facility] N/A: Sternum LAURYN BIOMET- 115.604 .06 / / Explanted Type Area Wood Carver Hand Device Identifier Shelf Expiration Date Model / Serial / Lot Log [id number] - Lauryn Dynesys Lumbar Fixation - 1 - Cord Dynesys 100mm 35573.100 Explanted:Qty: 1 on 06/16/2010 Other N/A: Spine Lumbar LAURYN US INC .1 00 / NA / NA Description:EXPLANTED EXISTI NG HARDWARE DUE TO NEED FOR EXTENSION PER RADHA LAURYN REP Log [id number] - Lauryn Dynesys Lumbar Fixation - 1 - Spacer Dynesys 45mm 2/Ea 35406.645 Explanted:Qty: 1 on 06/16/2010 Spacer N/A: Spine Lumbar LAURYN US INC 12067.6 45 / NA / NA Description:EXPLANTED EXISTI [...] disease, without long-term current use of insulin ([facility]) LIPID RFLX Routine 10/13/2024 2:34 PM CDT Type 2 diabetes mellitus with stage 2 chronic kidney disease, without long-term current use of insulin ([facility]) HEMOGLOBIN A1C Routine 10/13/2024 2:34 PM CDT Type 2 diabetes mellitus with stage 2 chronic kidney disease, without long-term current use of insulin ([facility]) from Last 3 Months or Most Recently Relevant to Health Maintenance Results * US CAROTID DOPPLER (01/03/2025 9:53 AM CDT) Anatomical Region Laterality Modality Neck Ultrasound 01/03/2025 9:31 AM CDT Narrative 01/03/2025 2:04 PM CDT [facility] [address] [place] [address] [place] [address] Noninvasive Vascular Lab Cerebrovascular Exam Carotid Duplex Patient: Katerin Shetty Study ID: US CAROTID DOPPL Gender: M : 1965 Age: 59 Room: Height: 178cm Weight: 105.7kg BSA: 2.32m^2 Pt status: Outpatient Study Date: 01/03/2025 Study Time: 09:31:20 AM BSA: 2.32m^2 Ordering: Luther Babin Interpreting:Chin Mclaughlin Timber Sizer: MALATHI Terminal Carman:KGT Indications: Right carotid stenosis. Summary Impression: 1. [...] vertebral: Left vertebral 0.24m/sec 0.05m/sec Antegrade flow [facility] Center is accredited with the Intersocietal Commission for the Accreditation of Vascular Laboratories (ICAVL) Prepared and Electronically Authenticated Chin Mclaughlin Confirmed 01/03/2025 14:04 Procedure Note Chin Mclaughlin MD - 01/03/2025 [facility] [address] [place] [address] [place] [address] Noninvasive Vascular Lab Cerebrovascular Exam Carotid Duplex Patient: Katerin Shetty Study ID: US CAROTID DOPPL Gender: M : 1965 Age: 59 Room: Height: 178cm Weight: 105.7kg BSA: 2.32m^2 Pt status: Outpatient Study Date: 01/03/2025 Study Time: 09:31:20 AM BSA: 2.32m^2 Ordering: Luther Babin Interpreting:Chin Mclaughlin Timber Sizer: MALATHI Terminal Carman:KASSANDRA Indications: Right carotid stenosis. Summary Impression: 1. [...] vertebral: Left vertebral 0.24m/sec 0.05m/sec Antegrade flow [facility] is accredited withthe [facility] Commission for the Accreditation of Vascular Laboratories (ICAVL) Prepared and Electronically Authenticated Chin Mclaughlin Confirmed 01/03/2025 14:04 Luther Babin NP ORDERABLES Final Result * (ABNORMAL) MICROALBUMIN/CREATININE RATIO, RANDOM UR (10/13/2024 2:38 PM CDT) CREATININE, URINE 120 20 - 320 mg/dL [facility] ALBUMIN, URINE 11.8 See Note: mg/dL [facility] Comment: Reference Range: Reference Range Not established ALB/CREAT RATIO, URINE 98(H) <30 mg/g creat [facility] Comment: The ADA defines abnormalities in [...] category. FASTING:UNKNOWN FASTING: UNKNOWN Test Performed at: [facility] [address] [place] [address] Guerda Hart MD Urine URINE SPECIMEN OBTAINED BY CLEAN CATCH PROCEDURE / Unknown 10/13/2024 2:38 PM CDT 10/13/2024 2:39 PM CDT Katerin Kreis DO URINE ORDERABLES Final Result [facility] [phone] [facility] [address] [place] [address] * (ABNORMAL) LIPID RFLX (10/13/2024 2:34 PM CDT) CHOLESTEROL 150 <200 mg/dL [facility] HDL 26(L) > OR = 40 mg/dL [facility] TRIGLYCERIDE 475(H) <150 mg/dL [facility] Comment: If a non-fasting specimen was collected, consider repeat triglyceride testing on a fasting specimen if clinically indicated. Taco et al. J. of Clin. Lipidol. 2015;9:129-169. LDL CALCULATED mg/dL (calc) [facility] Comment: LDL cholesterol not calculated. Triglyceride [...] LDL-C. Armando SS et al. RAJINDER. 2013;310(19): 5674-8840 (http://education.Adpeps/faq/SMT361) CHOL/HDL RATIO 5.8(H) <5.0 (calc) [facility] NON-HDL CHOLESTEROL 124 <130 mg/dL (calc) [facility] Comment: For patients with diabetes plus 1 major ASCVD risk factor, treating to a non-HDL-C goal of <100 mg/dL (LDL-C of <70 mg/dL) is considered a therapeutic option. LDL CHOLESTEROL, DIRECT 75 <100 mg/dL [facility] Comment: Desirable range <100 mg/dL for primary prevention; <70 mg/dL for patients with CHD or diabetic patients with > or = 2 CHD risk factors. Test Performed at: [facility] [address] [place] [address] Guerda Hart MD Blood 10/13/2024 2:34 PM CDT 10/13/2024 2:35 PM CDT Katerin Dallas DO CHEMISTRY ORDERABLES Final Resu lt Performing Organization Address City/[facility]/ZIP Co de Phone Number [facility] [phone] [facility] [address] [place] [address] * (ABNORMAL) HEMOGLOBIN A1C (10/13/2024 2:34 PM CDT) HEMOGLOBIN A1C 8.2(H) <5.7 % [facility] Comment: For someone without known diabetes, [...] children. ESTIMATED AVERAGE GLUCOSE (MG/DL) 189 mg/dL [facility] ESTIMATED AVERAGE GLUCOSE (MMOL/L) 10.4 mmol/L [facility] Comment: FASTING:UNKNOWN FASTING: UNKNOWN Test Performed at: [facility] [address] [facility] [place] [address] Guerda Hart MD Blood 10/13/2024 2:34 PM CDT 10/13/2024 2:35 PM CDT Katerin Dallas DO CHEMISTRY ORDERABLES Final Resu lt Performing Organization Address City/[facility]/ZIP Co de Phone Number [facility] [phone] [facility] [address] [place] [address] from Last 3 Months or Most Recently [...] Patient Date of Phone Billing Address Personal/Family [address] [place] [address] RX INFOCROSSING Medicaid RX [facility] Medicare Part D Advance Directives For more information, please contact: [phone] * Full Code (Latest Code Status on File) Date Activated Date Inactivated Comments 04/11/2024 3:44 PM 04/12/2024 1:56 PM * Full Code Date Activated Date Inactivated Comments 02/07/2024 12:51 PM 02/12/2024 3:01 PM * Full Code Date Activated Date Inactivated Comments 02/02/2024 6:30 AM 02/07/2024 12:51 PM Care Teams Pump Stitcher Relationship Specialty Start Date End Date Katerin Dallas DO [address] [place] [address] Dr [address] [place] [phone] PCP - General Family Practice 10/13/24
--- OUTSIDE RECORDS SUMMARY | 2025-03-09 13:14 | XMS_ITS | Encounter Summary ---
Author Organization [facility] Address [address] [place] [address] Care Team Providers Care Marine Pilot Name Role Phone Yesenia Maria DO Primary Care Provider [phone] Encounter Details Date Type Department Care Team (Latest Contact Info) Description 10/12/2007 Outpatient [facility] [place] [address] [facility] [address] [place] [address] Miguel Hayden MD [address] [place] [address] Pain in Joint, Shoulder Region; Pain in Soft Tissues of Limb Social History Tobacco Use Types Packs/Day Years Used Date Smoking Tobacco: Never Assessed Sex and Gender Information Value Date Recorded Sex Assigned at Not on file Legal Sex Male 2:36 AM BIOINFORMATICS TEAM MEMBER Gender Identity Not on file Sexual Orientation Not on file documented as of this encounter Plan of Treatment Not on file documented as of this encounter Visit Diagnoses Diagnosis Pain in joint, shoulder region Pain in limb documented in this encounter Additional Health Concerns Infection Onset Date Last Indicated Resolved Time R/O COVID-19 01/26/2020 01/26/2020 01/28/2020 1:46 AM BIOINFORMATICS TEAM MEMBER documented as of this encounter Care Teams Marine Pilot Relationship Specialty Start Date End Date Yesenia Maria DO PCP - General Family Practice 04/18/20 07/14/20 documented as of this encounter
--- OUTSIDE RECORDS SUMMARY | 2025-03-09 13:14 | XMS_ITS | Encounter Summary ---
Author Organization [facility] Address [address] [place] [address] Care Team Providers Care Electric Shipyard Operator Name Role Phone Yesenia Maria DO Primary Care Provider [phone] Encounter Details Date Type Department Care Team (Late st Contact Info) Description 03/01/2007 [facility]patient [facility] [address] [place] [phone] Jacqueline Thakkar MD [address] [address] Social History Tobacco Use Types Packs/Day Years Used Date Smoking Tobacco: Never Assessed Sex and Gender Information Value Date Recorded Sex Assigned at Not on file Legal Sex Male 2:36 AM RETAIL ASSET PROTECTION SPECIALIST Gender Identity Not on file Sexual Orientation Not on file documented as of this encounter Plan of Treatment Not on file documented as of this encounter Visit Diagnoses Not on filedocumented in this encounter Additional Health Concerns Infection Onset Date Last Indicated Resolved Time R/O COVID-19 01/26/2020 01/26/2020 01/28/2020 1:46 AM RETAIL ASSET PROTECTION SPECIALIST documented as of this encounter Care Teams Electric Shipyard Operator Relationship Specialty Start Date End Date Yesenia Maria DO PCP - General Family Practice 04/18/20 07/14/20 documented as of this encounter
--- OUTSIDE RECORDS SUMMARY | 2025-03-09 13:14 | XMS_ITS | Encounter Summary ---
Author Organization [facility] Address [address] [place] [address] Care Team Providers Care Online Producer Name Role Phone Yesenia Maria DO Primary Care Provider [phone] Encounter Details Date Type Department Care Team (Latest Contact Info) Description 12/02/2004 Outpatient Historical [facility] [address] [place] [address] Heladio Perez MD NO ADDRESS ON FILE RESPIRATORY ABNORM NEC (Primary Dx) Social History Tobacco Use Types Packs/Day Years Used Date Smoking Tobacco: Never Assessed Sex and Gender Information Value Date Recorded Sex Assigned at Not on file Legal Sex Male 2:36 AM BIRTH ATTENDANT Gender Identity Not on file Sexual [...] R/O COVID-19 01/26/2020 01/26/2020 01/28/2020 1:46 AM BIRTH ATTENDANT documented as of this encounter Care Teams Online Producer Relationship Specialty Start Date End Date Yesenia Maria DO PCP - General Family Practice 04/18/20 07/14/20 documented as of this encounter
--- OUTSIDE RECORDS SUMMARY | 2025-03-09 13:14 | XMS_ITS | Encounter Summary ---
Author Organization [facility] Address [address] [place] [address] Care Team Providers Care Brownfield Redevelopment Site Manager Name Role Phone MariaYesenia dawson Primary Care Provider [phone] Encounter Details Date Type Department Care Team (Late st Contact Info) Description 11/22/2015 Ancillary Orders [facility]oped[facility] [place] [address] Ajay Bustamante, DO [address] [place] [address] Bilateral shoulder pain, unspecified chronicity [...] file Legal Sex Male 2:36 AM SENIOR ADMINISTRATIVE SERVICES OFFICER Gender Identity Not on file Sexual [...] spur. Grade 1 acromion. Ajay Bustamante D.O. [facility] Orthopedics [facility] CDM:bjw Ajay Bustamante DO DIAGNOSTIC IMAGING ORDERABLES Final Result documented in this encounter Visit Diagnoses Diagnosis Bilateral shoulder pain, unspecified chronicity- Primary documented in this encounter Additional Health Concerns Infection Onset Date Last Indicated Resolved Time R/O COVID-19 01/26/2020 01/26/2020 01/28/2020 1:46 AM SENIOR ADMINISTRATIVE SERVICES OFFICER documented as of this encounter Care Teams Brownfield Redevelopment Site Manager Relationship Specialty Start Date End Date Yesenia Maria DO PCP - General Family Practice 04/18/20 07/14/20 documented as of this encounter
--- OUTSIDE RECORDS SUMMARY | 2025-03-09 13:14 | XMS_ITS | Encounter Summary ---
Author Organization [facility] Address [address] [place] [address] Care Team Providers Care Digital Marketing Project Manager Name Role Phone Yesenia Maria DO Primary Care Provider [phone] Encounter Details Date Type Department Care Team (Late st Contact Info) Description 02/15/2007 [facility] [address] [place] [phone] Jacqueline Thakkar MD [address] [phone] Social History Tobacco Use Types Packs/Day Years Used Date Smoking Tobacco: Never Assessed Sex and Gender Information Value Date Recorded Sex Assigned at Not on file Legal Sex Male 2:36 AM MELTER HELPER Gender Identity Not on file Sexual Orientation Not on file documented as of this encounter Plan of Treatment Not on file documented as of this encounter Visit Diagnoses Not on filedocumented in this encounter Additional Health Concerns Infection Onset Date Last Indicated Resolved Time R/O COVID-19 01/26/2020 01/26/2020 01/28/2020 1:46 AM MELTER HELPER documented as of this encounter Care Teams Digital Marketing Project Manager Relationship Specialty Start Date End Date Yesenia Maria DO PCP - General Family Practice 04/18/20 07/14/20 documented as of this encounter
--- OUTSIDE RECORDS SUMMARY | 2025-03-09 13:14 | XMS_ITS | Encounter Summary ---
Author Organization [facility] Address [address] [place] [address] Care Team Providers Care Flatbed Owner Operator Name Role Phone Yesenia Maria DO Primary Care Provider [phone] Encounter Details Date Type Department Care Team (Late st Contact Info) Description 06/09/2007 Outpatient Historical [facility]- [address] [place] [phone] Ajay Rodriguez MD NO ADDRESS ON FILE Social History Tobacco Use Types Packs/Day Years Used Date Smoking Tobacco: Never Assessed Sex and Gender Information Value Date Recorded Sex Assigned at Not on file Legal Sex Male 2:36 AM IT PROJECT MANAGER Gender Identity Not on file Sexual Orientation Not on file documented as of this encounter Plan of Treatment Not on file documented as of this encounter Visit Diagnoses Not on filedocumented in this encounter Additional Health Concerns Infection Onset Date Last Indicated Resolved Time R/O COVID-19 01/26/2020 01/26/2020 01/28/2020 1:46 AM IT PROJECT MANAGER documented as of this encounter Care Teams Flatbed Owner Operator Relationship Specialty Start Date End Date Yesenia Maria DO PCP - General Family Practice 04/18/20 07/14/20 documented as of this encounter
--- OUTSIDE RECORDS SUMMARY | 2025-03-09 13:14 | XMS_ITS | Encounter Summary ---
Author Organization [facility] Address [address] [place] [address] Care Team Providers Care Paper Control Clerk Name Role Phone Yesenia Maria DO Primary Care Provider [phone] Encounter Details Date Type Department Care Team (Late st Contact Info) Description 02/16/2007 Inpatient Historical [facility] Jacqueline Thakkar MD [address] [phone] Social History Tobacco Use Types Packs/Day Years Used Date Smoking Tobacco: Never Assessed Sex and Gender Information Value Date Recorded Sex Assigned at Not on file Legal Sex Male 2:36 AM ASPHALT PATCHER Gender Identity Not on file Sexual Orientation Not on file documented as of this encounter Plan of Treatment Not on file documented as of this encounter Visit Diagnoses Not on filedocumented in this encounter Additional Health Concerns Infection Onset Date Last Indicated Resolved Time R/O COVID-19 01/26/2020 01/26/2020 01/28/2020 1:46 AM ASPHALT PATCHER documented as of this encounter Care Teams Paper Control Clerk Relationship Specialty Start Date End Date Yesenia Maria DO PCP - General Family Practice 04/18/20 07/14/20 documented as of this encounter
--- OUTSIDE RECORDS SUMMARY | 2025-03-09 13:14 | XMS_ITS | Encounter Summary ---
Author Organization [facility] Address [address] [place] [address] Care Team Providers Care Forensic Sergeant Name Role Phone Yesenia Maria DO Primary Care Provider [phone] Encounter Details Date Type Department Care Team (Latest Contact Info) Description 12/14/2003 Outpatient Historical [facility] Medicine [address] [place] [address] Yuri Richter MD NO ADDRESS ON FILE Pure hypercholesterolem (Primary Dx); HYPERTENSION NOS; ABN BLOOD CHEMISTRY NEC; SCREENING MAL NEOP-PROSTATE Social History Tobacco Use Types Packs/Day Years Used Date Smoking Tobacco: Never Assessed Sex and Gender Information Value Date Recorded Sex Assigned at Not on file Legal Sex Male 2:36 AM CORE STACKER Gender Identity Not on file Sexual [...] R/O COVID-19 01/26/2020 01/26/2020 01/28/2020 1:46 AM CORE STACKER documented as of this encounter Care Teams Forensic Sergeant Relationship Specialty Start Date End Date Yesenia Maria DO PCP - General Family Practice 04/18/20 07/14/20 documented as of this encounter
--- OUTSIDE RECORDS SUMMARY | 2025-03-09 13:14 | XMS_ITS | Encounter Summary ---
Author Organization [facility] Address [address] [place] [address] Care Team Providers Care Log Grader Name Role Phone Yesenia Maria DO Primary Care Provider [phone] Encounter Details Date Type Department Care Team (Latest Contact Info) Description 09/04/2004 Outpatient Historical [facility] Medicine [address] [place] [address] Yuri Richter MD NO ADDRESS [...] documented as of this encounter Care Teams Log Grader Relationship Specialty Start Date End Date Yesenia Maria DO PCP - General Family Practice 04/18/20 07/14/20 documented as of this encounter
--- OUTSIDE RECORDS SUMMARY | 2025-03-09 13:14 | XMS_ITS | Encounter Summary ---
Author Organization [facility] Address [address] [place] [address] Care Team Providers Care Design Maker Name Role Phone Yesenia Maria DO Primary Care Provider [phone] Encounter Details Date Type Department Care Team (Late st Contact Info) Description 12/02/2004 Outpatient Historical [facility] Social History Tobacco Use Types Packs/Day Years Used Date Smoking Tobacco: Never Assessed Sex and Gender Information Value Date Recorded Sex Assigned at Not on file Legal Sex Male 2:36 AM SPORTS INFORMATION DIRECTOR Gender Identity Not on file Sexual Orientation Not on file documented as of this encounter Plan of Treatment Not on file documented as of this encounter Visit Diagnoses Not on filedocumented in this encounter Additional Health Concerns Infection Onset Date Last Indicated Resolved Time R/O COVID-19 01/26/2020 01/26/2020 01/28/2020 1:46 AM SPORTS INFORMATION DIRECTOR documented as of this encounter Care Teams Design Maker Relationship Specialty Start Date End Date Yesenia Maria DO PCP - General Family Practice 04/18/20 07/14/20 documented as of this encounter
--- OUTSIDE RECORDS SUMMARY | 2025-03-09 13:14 | XMS_ITS | Encounter Summary ---
Author Organization [facility] Address [address] [place] [address] Care Team Providers Care Oracle Scm Consultant Name Role Phone CrowNuryslaith CALHOUN Primary Care Provider [phone] Reason for Referral * Outpatient Services (Routine) - Closed Specialty Diagnoses / Procedures Referred By Contac t Referred To Contact Diagnoses S/P lumbar fusion Disorders of sacrum Procedures XR FLUORO NEEDLE GUIDANCE Adrienne Will PA [address] [place] [address] Phone: tel: fax: Referral ID Status Reason Start Date Expiration Date Visits Re quested Visits Authorized [id number] Closed 04/06/2011 04/05/2012 1 1 ER MANAGEMENT ASSISTANT Encounter Details Date Type Department Care Team (Late st Contact Info) Description 04/06/2011 Ancillary Orders [facility] Pain Management[address] [place] [phone] Adrienne Will PA [address] [place] [address] S/P lumbar fusion; Disorders of [...] on file Legal Sex Male 2:36 AM TIMBER MANAGEMENT ASSISTANT Gender Identity Not on file Sexual Orientation Not on file documented as of this encounter Plan of Treatment Not on file documented as of this encounter Results * XR FLUORO NEEDLE GUIDANCE (04/06/2011 9:49 AM TIMBER MANAGEMENT ASSISTANT) Anatomical Region Laterality Modality Computed Radiogr aphy Narrative 04/06/2011 9:49 AM TIMBER MANAGEMENT ASSISTANT Order information only. Exam was auto-finalized. Procedure [...] R/O COVID-19 01/26/2020 01/26/2020 01/28/2020 1:46 AM TIMBER MANAGEMENT ASSISTANT documented as of this encounter Care Teams Oracle Scm Consultant Relationship Specialty Start Date End Date Yesenia Maria DO PCP - General Family Practice 04/18/20 07/14/20 documented as of this encounter
--- OUTSIDE RECORDS SUMMARY | 2025-03-09 13:14 | XMS_ITS | Encounter Summary ---
Author Organization [facility] Address [address] [place] [address] Care Team Providers Care Marine Welder Name Role Phone Yesenia Maria DO Primary Care Provider [phone] Encounter Details Date Type Department Care Team (Latest Contact Info) Description 07/02/2004 Outpatient Historical [facility] Medicine [address] [place] [address] Yuri Richter MD NO ADDRESS ON FILE ASCVD (Primary Dx); DIABETES MELLITUS TYPE II-UNCOMPL (CMS/[facility]); Pure hypercholesterolem; BACKACHE NOS Social History Tobacco Use Types Packs/Day Years Used Date Smoking Tobacco: Never Assessed Sex and Gender Information Value Date Recorded Sex Assigned at Not on file Legal Sex Male 2:36 AM MANAGER IT SECURITY Gender Identity Not on file Sexual Orientation [...] COVID-19 01/26/2020 01/26/2020 01/28/2020 1:46 AM MANAGER IT SECURITY documented as of this encounter Care Teams Marine Welder Relationship Specialty Start Date End Date Yesenia Maria DO PCP - General Family Practice 04/18/20 07/14/20 documented as of this encounter
--- OUTSIDE RECORDS SUMMARY | 2025-03-09 13:14 | XMS_ITS | Encounter Summary ---
Author Organization [facility] Address [address] [place] [address] Care Team Providers Care Director Emergency Department Name Role Phone Yesenia Maria DO Primary Care Provider [phone] Encounter Details Date Type Department Care Team (Late st Contact Info) Description 04/07/2007 Outpatient Historical [facility] Pain Management- [address] [place] [phone] Ajay Rodriguez MD NO ADDRESS ON FILE Social History Tobacco Use Types Packs/Day Years Used Date Smoking Tobacco: Never Assessed Sex and Gender Information Value Date Recorded Sex Assigned at Not on file Legal Sex Male 2:36 AM QUEEN PRODUCER Gender Identity Not on file Sexual Orientation Not on file documented as of this encounter Plan of Treatment Not on file documented as of this encounter Visit Diagnoses Not on filedocumented in this encounter Additional Health Concerns Infection Onset Date Last Indicated Resolved Time R/O COVID-19 01/26/2020 01/26/2020 01/28/2020 1:46 AM QUEEN PRODUCER documented as of this encounter Care Teams Director Emergency Department Relationship Specialty Start Date End Date Yesenia Maria DO PCP - General Family Practice 04/18/20 07/14/20 documented as of this encounter
--- OUTSIDE RECORDS SUMMARY | 2025-03-09 13:14 | XMS_ITS | Encounter Summary ---
Author Organization [facility] Address [address] [place] [address] Care Team Providers Care Metal Stamper Name Role Phone Yesenia Maria DO Primary Care Provider [phone] Encounter Details Date Type Department Care Team (Late st Contact Info) Description 04/10/2004 Outpatient Historical [facility] Medicine [address] [address] Panda Coates MD [address] [place] [address] CELLULITIS OF HAND (Primary Dx) Social History Tobacco Use Types Packs/Day Years Used Date Smoking Tobacco: Never Assessed Sex and Gender Information Value Date Recorded Sex Assigned at Not on file Legal Sex Male 2:36 AM FELT PAD CUTTER Gender Identity Not on file Sexual Orientation Not on file documented as of this encounter Plan of Treatment Not on file documented as of this encounter Visit Diagnoses Diagnosis Cellulitis and abscess of hand, except fingers and thumb- Primary documented in this encounter Additional Health Concerns Infection Onset Date Last Indicated Resolved Time R/O COVID-19 01/26/2020 01/26/2020 01/28/2020 1:46 AM FELT PAD CUTTER documented as of this encounter Care Teams Metal Stamper Relationship Specialty Start Date End Date Yesenia Maria DO PCP - General Family Practice 04/18/20 07/14/20 documented as of this encounter
--- OUTSIDE RECORDS SUMMARY | 2025-03-09 13:14 | XMS_ITS | Encounter Summary ---
Author Organization [facility] Address [address] [place] [address] Care Team Providers Care Make Ready Worker Name Role Phone Radu [place] DO Primary Care Provider [phone] Reason for Visit * Reason Comments Medication Refill Encounter Details Date Type Department Care Team (Late Contact Info) Description 10/15/2020 Refill [facility] Internal Medicine [address] [place] [address] Lakeisha Altmairano MD NO ADDRESS ON FILE Social History [...] on file Legal Sex Male 1:33 AM LEAD QUALITY CONTROL TECHNICIAN Gender Identity Not on file Sexual Orientation Not on file documented as of this encounter Plan of Treatment Upcoming Encounters Date Type Department Care Team (Late st Contact Info) Description 07/04/2025 8:00 AM CDT Ancillary Procedure [facility] [place] [address] [place] [address] Luther Babin NP [address] [place] [address] 07/04/2025 8:30 AM CDT Ancillary Procedure [facility] [place] [address] [place] [address] Luther Babin NP [address] [facility] [address] [place] [address] 07/04/2025 9:30 AM CDT Office Visit [facility] [place] [address] [place] [address] Luther Babin NP [address] [facility] [address] [place] [address] documented as of this encounter Visit Diagnoses Not on filedocumented in this encounter Care Teams Make Ready Worker Relationship Specialty Start Date End Date Radu [place] DO [address] [place] [address] [address] [place] [id number] PCP - General Family Practice 10/13/24 documented as of this encounter
--- OUTSIDE RECORDS SUMMARY | 2025-03-09 13:14 | XMS_ITS | Encounter Summary ---
Author Organization [facility] Address [address] [place] [address] Care Team Providers Care Cop Breaker Name Role Phone Yesenia Maria DO Primary Care Provider [phone] Encounter Details Date Type Department Care Team (Latest Contact Info) Description 06/27/2004 Outpatient Historical [facility] Medicine [address] [place] [phone] Yuri Richter MD NO ADDRESS ON FILE BACKACHE NOS (Primary Dx) Social History Tobacco Use Types Packs/Day Years Used Date Smoking Tobacco: Never Assessed Sex and Gender Information Value Date Recorded Sex Assigned at Not on file Legal Sex Male 2:36 AM SALESPERSON DRIVER Gender Identity Not on file Sexual Orientation Not on file documented as of this encounter Plan of Treatment Not on file documented as of this encounter Visit Diagnoses Diagnosis Backache, unspecified- Primary documented in this encounter Additional Health Concerns Infection Onset Date Last Indicated Resolved Time R/O COVID-19 01/26/2020 01/26/2020 01/28/2020 1:46 AM SALESPERSON DRIVER documented as of this encounter Care Teams Cop Breaker Relationship Specialty Start Date End Date Yesenia Maria DO PCP - General Family Practice 04/18/20 07/14/20 documented as of this encounter
--- OUTSIDE RECORDS SUMMARY | 2025-03-09 13:14 | XMS_ITS | Encounter Summary ---
Author Organization [facility] Address [address] [place] [address] Care Team Providers Care Priming Powder Premix Blender Name Role Phone Yesenia Maria DO Primary Care Provider [phone] Encounter Details Date Type Department Care Team (Late st Contact Info) Description 12/22/2007 Outpatient Historical [facility] DEFAULT DEPARTMENT Miguel Hayden MD [address] [phone] Social History Tobacco Use Types Packs/Day Years Used Date Smoking Tobacco: Never Assessed Sex and Gender Information Value Date Recorded Sex Assigned at Not on file Legal Sex Male 2:36 AM TONGSMAN Gender Identity Not on file Sexual Orientation Not on file documented as of this encounter Plan of Treatment Not on file documented as of this encounter Visit Diagnoses Not on filedocumented in this encounter Additional Health Concerns Infection Onset Date Last Indicated Resolved Time R/O COVID-19 01/26/2020 01/26/2020 01/28/2020 1:4 6 AM TONGSMAN documented as of this encounter Care Teams Priming Powder Premix Blender Relationship Specialty Start Date End Date Yesenia Maria DO PCP - General Family Practice 04/18/20 07/14/20 documented as of this encounter
--- OUTSIDE RECORDS SUMMARY | 2025-03-09 13:14 | XMS_ITS | Encounter Summary ---
Author Organization [facility] Address [address] [place] [address] Care Team Providers Care Mold Stamper And Repairer Name Role Phone Yesenia Maria DO Primary Care Provider [phone] Encounter Details Date Type Department Care Team (Latest Contact Info) Description 09/04/2004 Outpatient Historical [facility] Internal Medicine and Pediatrics-[address] [place] [address] [place] [address] Adalberto Cruz MD [address] [place] [address] PERIPH VASCULAR DIS NOS (Primary Dx); HYPERLIPIDEMIA NEC/NOS; HYPERTENSION NOS Social History Tobacco Use Types Packs/Day Years Used Date Smoking Tobacco: Never Assessed Sex and Gender Information Value Date Recorded Sex Assigned at Not on file Legal Sex Male 2:36 AM SAFETY DEPOSIT SUPERVISOR Gender Identity Not on file Sexual [...] COVID-19 01/26/2020 01/26/2020 01/28/2020 1:46 AM SAFETY DEPOSIT SUPERVISOR documented as of this encounter Care Teams Mold Stamper And Repairer Relationship Specialty Start Date End Date Yesenia Maria DO PCP - General Family Practice 04/18/20 07/14/20 documented as of this encounter
--- OUTSIDE RECORDS SUMMARY | 2025-03-09 13:14 | XMS_ITS | Encounter Summary ---
Author Organization [facility] Address [address] [place] [address] Care Team Providers Care Spot Billing Clerk Name Role Phone Yesenia Maria DO Primary Care Provider [phone] Encounter Details Date Type Department Care Team (Late st Contact Info) Description 04/28/2007 Outpatient Historical [facility]- [address] [place] [phone] Ajay Rodriguez MD NO ADDRESS ON FILE Social History Tobacco Use Types Packs/Day Years Used Date Smoking Tobacco: Never Assessed Sex and Gender Information Value Date Recorded Sex Assigned at Not on file Legal Sex Male 2:36 AM INTERLINE CLERK Gender Identity Not on file Sexual Orientation Not on file documented as of this encounter Plan of Treatment Not on file documented as of this encounter Visit Diagnoses Not on filedocumented in this encounter Additional Health Concerns Infection Onset Date Last Indicated Resolved Time R/O COVID-19 01/26/2020 01/26/2020 01/28/2020 1:46 AM INTERLINE CLERK documented as of this encounter Care Teams Spot Billing Clerk Relationship Specialty Start Date End Date Yesenia Maria DO PCP - General Family Practice 04/18/20 07/14/20 documented as of this encounter
--- OUTSIDE RECORDS SUMMARY | 2025-03-09 13:14 | XMS_ITS | Encounter Summary ---
Author Organization [facility] Address [address] [place] [address] Care Team Providers Care Cvicu Nurse Name Role Phone Yesenia Maria DO Primary Care Provider [phone] Encounter Details Date Type Department Care Team (Latest Contact Info) Description 12/30/2006 Outpatient Historical [facility] [place] [address] Ajay Bustamante, DO [address] [place] [address] Thoracic or Lumbosacral Neuritis or Radiculitis, Unspecified (Primary Dx) Social History Tobacco Use Types Packs/Day Years Used Date Smoking Tobacco: Never Assessed Sex and Gender Information Value Date Recorded Sex Assigned at Not on file Legal Sex Male 2:36 AM SPECIAL PROCEDURES TECH Gender Identity Not on file Sexual Orientation Not on file documented as of this encounter Plan of Treatment Not on file documented as of this encounter Visit Diagnoses Diagnosis Thoracic or lumbosacral neuritis or radiculitis, unspecified- Primary documented in this encounter Additional Health Concerns Infection Onset Date Last Indicated Resolved Time R/O COVID-19 01/26/2020 01/26/2020 01/28/2020 1:46 AM SPECIAL PROCEDURES TECH documented as of this encounter Care Teams Cvicu Nurse Relationship Specialty Start Date End Date Yesenia Maria DO PCP - General Family Practice 04/18/20 07/14/20 documented as of this encounter
[2025-03-09 13:53] VITALS: BP 153/82; PULSE 90; RESP 14; TEMP 36.9; O2SAT 96; BMI 33.7
--- NOTE | 2025-03-09 14:54 | XRR_ITS ---
PROCEDURE INFORMATION: Exam: XR Lumbosacral Spine Exam date and time: 03/09/2025 3:02 PM Age: 60 years old Clinical indication: Low back pain; Prior surgery; Surgery date: 6+ months; Surgery type: Back surgery; Additional info: Fall TECHNIQUE: Imaging protocol: Radiologic exam of the lumbosacral spine. Views: 2 or 3 views. COMPARISON: US renal BI w/PV bladder [id number] 01/31/2024 9:26 AM FINDINGS: Bones/joints: The bones are osteopenic. There are surgical screws posterior placed in the L4-L5 and S1 locations. There is a 4 mm of lucency surrounding the L4 screw on the left. This may represent some loosening. The screws are not attached to each other by any metallic item. Laminectomy defects are present at L4 on L5. Alignment appears within normal limits. Disc space narrowing is present at L2-L3 and L5-S1. There are some degenerative changes of the SI joints. Soft tissues: Unremarkable. Vasculature: There are atherosclerotic changes of the aorta without gross evidence of aneurysm. XR/XR lumbar spine 2-3V* [id number] IMPRESSION: Postsurgical changes as described. Loosening of the screw on the left at L4.
--- NOTE | 2025-03-09 15:00 | ED_ITS ---
HPI - Back Pain/Injury General: Chief Complaint: Back Pain/Injury Stated Complaint: back pain Time Seen by Provider: 03/09/25 14:13 Source: patient Mode of arrival: ambulatory Limitations: no limitations History of Present Illness: 60-year-old male had a history of spinal surgery states years ago he does see pain management for chronic back pain states he was lifting something this morning and felt a pop in his right lower back has been having pain in the right lower back since then. States pain is much improved at rest but hurts with movement and when he tries to bend down rates the pain a 3 out of 10 currently denies any saddle anesthesia denies any bowel or bladder incontinence. Patient also states has had some sinus congestion over the last 2 weeks Related Data Home Medications ?Medication ?Instructions ?Recorded ?Confirmed clopidogrel 75 mg tablet (Plavix) 75 mg PO DAILY 05/0802/21/25 pantoprazole 20 mg tablet,delayed 20 mg PO DAILY 10/1602/21/25 release allopurinol 100 mg tablet 100 mg PO DAILY 04/27/2401/06 atorvastatin 80 mg tablet See Rx Instructions .Route . COMPLEX 04/27/24 02/21/25 fluticasone propionate 50 2 spray intranasal DAILY 02/21/25 mcg/actuation nasal spray,suspension hydrocodone 5 mg-acetaminophen 325 1 tab PO Q6H PRN Pa in 04/27/24 02/21/25 mg tablet semaglutide 0.25 mg or 0.5 mg (2 0.5 mg SUBCUT .weekly 07/12/24 02/21/25 mg/3 mL) subcutaneous pen injector (Ozempic) insulin aspart U-100 100 unit/mL 0 - 12 unit SUBCUT TI D 08/17/24 02/21/25 (3 mL) subcutaneous pen (Novolog FlexPen U-100 Insulin aspart) cyclobenzaprine 5 mg tablet 5 mg PO DAILY PRN 09/21/24 02/21/25 Previous Rx's ?Medication ?Instructions ?Recorded Diabetic Shoes with 3 sets of #1 ea 09/30/21 insoles Diabetic Shoes with 3 sets of #1 ea 11/05/21 insoles AFO to right #1 ea 12/14/22 Shoulder Immobilizer #1 ea 10/06/23 metoprolol tartrate 25 mg tablet See Rx Instructions . Route 10/02/24 .COMPLEX #180 tabs furosemide 40 mg tablet See Rx Instructions .Route 0 11/14/24 .COMPLEX #60 tabs isosorbide mononitrate 30 mg 30 mg PO DAILY #90 tabs 0 11/14/24 tablet,extended release 24 hr sacubitril 24 mg-valsartan 26 mg 1 tab PO BID #180 tab s 01/29/25 tablet (Entresto) spironolactone 25 mg tablet See Rx Instructions .Route 02/13/25 .COMPLEX #90 tabs ibuprofen 800 mg tablet 800 mg PO Q8H PRN pain #20 t abs 02/18/25 methylprednisolone 4 mg tablets in See Rx Instructions PO .COMPLEX 02/18/25 a dose pack (Medrol (Mike)) #21 ea Vascepa 1 gram capsule (icosapent See Rx Instructions .Route 03/05/25 ethyl) .COMPLEX #360 caps cephalexin 500 mg capsule 500 mg PO TID 7 days #21 cap s 03/09/25 Allergies Allergy/AdvReac Type Severity Reaction Status Date / Time codeine AdvReac Unknown ADR-Nausea Verified 03/09/25 14:04 morphine AdvReac Unknown ADR/ALGY-Fl Verified 03/09/25 14:04 ushing Review of Systems Musc: Reports: back pain PFSH ED PFSH: Medical History Type 2 diabetes mellitus Hypertension Cigarette smoker motivated to quit Chronic low back pain Shoulder impingement Abdominal hernia Acute right ankle pain Acute bilateral low back pain Acute pain of left shoulder Encounter for long-term opiate analgesic use Back pain with history of spinal surgery Opioid contract exists Lumbar back pain Smoker Surgical History Hx of shoulder surgery History of carpal tunnel surgery Hx of abdominal surgery Hx of oral surgery H/O sinus surgery History of lumbar surgery History of ankle surgery Family History Other Aneurysm Cancer Social History Smoking and tobacco/nicotine status: current every day tobacco/nicotine user cigarettes Packs smoked per day: 1 Alcohol intake: current Alcohol intake frequency: few times a month Substance/Drug Use: unknown Physical Exam Const: COMMON NORMALS: no acute distress, patient oriented x3 and healthy appearing HENMT: COMMON NORMALS: normocephalic and atraumatic HEAD & SCALP: normocephalic and atraumatic Neck/C-Spine: COMMON NORMALS: full ROM and supple Chest: COMMONS NORMALS: normal inspection of the chest Resp: COMMON NORMALS: normal respiratory effort Cardio: COMMON NORMALS: regular rate RATE: regular rate Back/Pelvis: OTHER: Tenderness right lower back no midline tenderness no saddle anesthesia Extremity: COMMON NORMALS: normal to inspection and full ROM Neuro: COMMON NORMALS: patient oriented x3, moves all extremities and no focal motor deficits Psych: COMMON NORMALS: mental status grossly normal, Normal thought process present and cooperative THOUGHT PROCESS: Normal thought process present Skin: COMMON NORMALS: no rashes or lesions noted and no wounds GENERAL SKIN EXAM: no rashes or lesions noted Course Vital Signs: Vital signs: Vital Signs Temperature 98.4 F 03/09/25 13:53 Pulse Rate 83 03/09/25 15:24 Respiratory Rate 14 03/09/25 13:53 Blood Pressure 165/84 03/09/25 15:24 Pulse Oximetry 95 03/09/25 15:24 Oxygen Delivery Me thod Room Air 03/09/25 15:24 MDM - Back Pain/Injury Medical Decision Making Patient presents here with low back pain differential includes fracture, muscle strain, cauda equina. His exam here is benign no signs of cauda equina x-ray of his back showed no signs of fracture his pain is more right sided lateral is likely a lumbar strain. Did give him Toradol here. He is also had some sinus pressure we will place him on Keflex for likely sinusitis he is to follow-up with his pain specialist return if worsening he understands agrees to plan Medical Records I reviewed the patient's medical records. XR interpretation done by ED provider, pending radiology final review ED provider radiology interpretation(s): X-ray lumbar spine no acute abnormality Discharge Plan Discharge Patient Disposition: Home Clinical Impression: Strain of lumbar region, Sinusitis Condition: Stable Prescriptions: New cephalexin 500 mg capsule 500 mg PO TID 7 Days Qty: 21 0RF No Action pantoprazole 20 mg tablet,delayed release (DR/EC) 20 mg PO DAILY clopidogrel [Plavix] 75 mg tablet 75 mg PO DAILY (DME) Diabetic Shoes with 3 sets of insoles See Rx Instructions .Route .MEDSUPPLY Qty: 1 0RF Rx Instructions: As directed by [facility] (ALEC) Diabetic Shoes with 3 sets of insoles See Rx Instructions .Route .MEDSUPPLY Qty: 1 0RF Rx Instructions: As directed by HOME (DME) Shoulder Immobilizer See Rx Instructions .Route .MEDSUPPLY Qty: 1 0RF Rx Instructions: As directed Ozempic 0.25 mg or 0.5 mg (2 mg/3 mL) pen injector 0.5 mg SUBCUT .weekly (DME) AFO to right See Rx Instructions .Route .MEDSUPPLY Qty: 1 0RF Rx Instructions: As directed by the brigid myahpedro luis metoprolol tartrate 25 mg tablet See Rx Instructions .ROUTE .COMPLEX Qty: 180 3RF Dose Instruction: Take 1 tablet by mouth twice daily Rx Instructions: Take 1 tablet by mouth twice daily isosorbide mononitrate 30 mg tablet extended release 24 hr 30 mg PO DAILY Qty: 90 3RF furosemide 40 mg tablet See Rx Instructions .ROUTE .COMPLEX Qty: 60 3RF Dose Instruction: Take 1 tablet by mouth twice daily Rx Instructions: Take 1 tablet by mouth twice daily Entresto 24-26 mg tablet 1 tab PO BID Qty: 180 1RF spironolactone 25 mg tablet See Rx Instructions .ROUTE .COMPLEX Qty: 90 3RF Dose Instruction: Take 1 tablet by mouth once daily Rx Instructions: Take 1 tablet by mouth once daily icosapent ethyl [Vascepa] 1 gram capsule See Rx Instructions .ROUTE .COMPLEX Qty: 360 3RF Dose Instruction: Take 2 capsules by mouth twice daily Rx Instructions: Take 2 capsules by mouth twice daily atorvastatin 80 mg Tablet See Rx Instructions .ROUTE .COMPLEX Rx Instructions: TAKE 1 TABLET BY MOUTH EVERY EVENING WITH DINNER hydrocodone-acetaminophen 5-325 mg Tablet 1 tab PO Q6H PRN (Reason: Pain) allopurinol 100 mg Tablet 100 mg PO DAILY fluticasone propionate 50 mcg/actuation [place],Suspension 2 spray INTRANASAL DAILY Rx Instructions: administer into each nostril cyclobenzaprine 5 mg tablet 5 mg PO DAILY PRN insulin aspart U-100 [Novolog FlexPen U-100 Insulin] 100 unit/mL (3 mL) Insulin Pen 0 - 12 unit SUBCUT TID Rx Instructions: inject 0-12 units with meals 3 times daily ibuprofen 800 mg tablet 800 mg PO Q8H PRN (Reason: pain) Qty: 20 0RF methylprednisolone [Medrol (Mike)] 4 mg tablets,dose pack See Rx Instructions .ROUTE .COMPLEX Qty: 21 0RF Rx Instructions: orally per package directions Discharge Orders: Discharge ED (Routine); Ordered 03/09/25 Ordered By: Yariel Zuñiga Discharge Diet: Advance as tolerated Discharge Activity: Resume usual activity Patient Instructions: Low Back Strain (ED) Print Language: [place] Coding Level of Care Code ED Paper Machine Back Tender for Oren Small
--- NOTE | 2025-03-09 15:07 | XR_ITS ---
WS: [id number] Thoracic spine, 3 views, 03/09/2025 Clinical Data: FALL Comparison: None. Findings: No compression fractures are seen. The disc heights are normal. There is osteoarthritis of all the vertebral bodies. The paravertebral regions are normal. There is a posterior lumbar fusion. Midline sternotomy sutures and sternal fixation with plates and screws is seen. There are mediastinal clips. XR/XR thoracic spine 3V* [id number] Impression: Osteoarthritis of the thoracic vertebral bodies.
[2025-03-09 15:24] VITALS: BP 165/84; PULSE 83; O2SAT 95
[2025-03-09 15:51] VITALS: BP 165/84; PULSE 83; O2SAT 95
== END 2025-03-09 15:52 | disposition home or self-care (01) ==
PROVIDERS: Emergency Provider Emergency Medicine
DX: S39.012A Strain of muscle, fascia and tendon of lower back, initial encounter (principal); J32.9 Chronic sinusitis, unspecified; Z79.02 Long term (current) use of antithrombotics/antiplatelets; Z79.4 Long term (current) use of insulin; F17.210 Nicotine dependence, cigarettes, uncomplicated; E11.9 Type 2 diabetes mellitus without complications; I10 Essential (primary) hypertension; X50.0XXA Overexertion from strenuous movement or load, initial encounter
CPT/HCPCS: 72072; 72100; 96372; 99284; J1885